=== PATIENT | female | born 1950 | race Caucasian/White ===

== ENCOUNTER 2017-03-03 06:41 | Emergency (ER) | payer OTHER ==
[2017-03-03 06:53] VITALS: BMI 23.3
--- NOTE | 2017-03-03 06:57 | DR.EXTPAIN ---
HPI - Nurses notes reviewed Nurses Notes Review: Yes - Source History Provided: Patient, EMS - Mode of arrival Mode of Arrival: Stretcher - Context History of: None - Associated signs and symptoms Associated Signs and Symptoms: Pain, Swelling <LIZ MADRID - Last Filed: 03/03/17 08:26> ROS - Review of Systems Constitutional: No Symptoms Reported Eyes: No Symptoms Reported ENTM: No Symptoms Reported Respiratoy: No Symptoms Reported Cardiovascular: No Symptoms Reported Gastrointestinal/Abdominal: No Symptoms Reported Genitourinary: No Symptoms Reported Neurological: No Symptoms Reported Musculoskeletal: Right, Ankle Integumentary: Bruises Hematologic/Lymphatic: No Symptoms Reported Endocrine: No Symptoms Reported All Other Systems: Reviewed and Negative <LIZ MADRID - Last Filed: 03/03/17 08:26> PE - General Limitations: No Limitations General Appearance: Alert - Head Head Exam: Normal Inspection - Eyes Eye exam: Normal Appearance - ENT ENT Exam: Normal External Ear Exam - Neck Neck Exam: Trachea Midline - Chest Chest Inspection: Symmetric Chest Wall Rise - Respiratory Respiratory Exam: Normal Lung Sounds Bilat Respiratory Exam: Bilateral Clear to Auscultation - Cardiovascular Cardiovascular Exam: Regular Rate, Normal Rhythm, Normal Heart Sounds - Abdominal Exam Abdominal Exam: Normal Bowel Sounds, Soft. negative: Tenderness - Extremities Extremities Exam: Tenderness (RIGHT ANKLE IS SWOLLEN, BRUISE AND TENDER. DECREASE ROM.) - Lower Extremities Ankle Exam: Tenderness, Swelling. negative: Full ROM (DECREASE) Neurovascular/Tendon Exam: Normal Capillary Refill - Back Back Exam: Normal Inspection - Neurological Neurological Exam: Alert, Oriented X3 - Psychiatric Psychiatric Exam: Normal Affect, Normal Mood - Skin Skin Exam: Erythema <LIZ MADRID - Last Filed: 03/03/17 08:26> - Vital Signs Vitals: Temperature 97.7 F Pulse Rate [Left Radial] 79 Pulse Rate 86 Respiratory Rate 20 Blood Pressure [Left Arm] 151/70 Blood Pressure 144/87 O2 Sat by Pulse Oximetry 100 MDM - Differential Diagnosis Differential Diagnosis: Contusion, Fracture, Sprain <LIZ MADRID - Last Filed: 03/03/17 08:26> Course - Treatment Treatment: SEE ORDERS. - Education/Counseling Education/Counseling: Patient, Education Educated On: Treatment, Diagnosis, Needs for Follow Up <LIZ MADRID - Last Filed: 03/03/17 08:26> - Consultation Called: 08:46 (Dr Michaud accepted for surgery need to get acceptance through ED- -Dr Lira accpeted for med surg) <VINICIUS BADILLO - Last Filed: 03/03/17 08:47> ROR - XRAY XRAY Interpreted by: Radiologist XRAY Findings: REPORT DISCUSS WITH PATIENT. <LIZ MADRID - Last Filed: 03/03/17 08:26> <LIZ MADRID - Last Filed: 03/03/17 08:26> <VINICIUS BADILLO - Last Filed: 03/03/17 08:47> - Discharge Plan Condition: Stable - Follow ups/Referrals Follow ups/Referrals: NFD,None [Primary Care Provider] - 3 days - Instructions
[2017-03-03] MEDS ORDERED: DILAUDID INJ ONE ×2 (07:27→09:16)
[2017-03-03] MEDS ORDERED: DILAUDID INJ IVP ONE ×2 (07:31→09:13)
--- NOTE | 2017-03-03 07:41 | RAD ---
HISTORY: Injury, fall, right ankle pain Study: Right ankle AP, lateral, mortise Comparison: None Findings: Fractures of the distal fibular shaft and medial malleolus are identified with subsequent lateral sub luxation of the talus at the tibiotalar joint. Associated soft tissue swelling is present. The talus, subtalar joint and calcaneus are intact. IMPRESSION: Bimalleolar fracture subluxation right ankle as described above Reported By:
[2017-03-03 08:36] VITALS: BP 151/70
== END 2017-03-03 10:08 | disposition home or self-care (01) ==
LOC: ER 06:41
DX: S82.841A Displaced bimalleolar fracture of right lower leg, initial encounter for closed fracture (principal); W10.9XXA Fall (on) (from) unspecified stairs and steps, initial encounter; Y92.9 Unspecified place or not applicable
CPT/HCPCS: 29515; 73610; 96365; 96374; 96375; 99284; 99285

== ENCOUNTER → 2017-08-31 | Outpatient (CLI) | payer OTHER ==
--- NOTE | 2017-08-31 10:24 | US ---
HISTORY: Right upper quadrant pain for 2 months. Nausea and vomiting. Study: Right upper quadrant ultrasound: Multiplanar ultrasonographic examination of the right upper abdominal quadrant was performed. Comparison: None Findings: The liver is of normal echogenicity, echotexture and size. Vascular flow was normal. The gallbladder shows no evidence of gallstones, pericholecystic fluid or gallbladder wall thickening . Per technologist's note there was a positive Mathew sign. The pancreas as visualized is normal. The inferior vena cava as visualized is normal. The right kidney measures 10.0 cm in length by 5.5 x 5.1 cm. No evidence of mass or hydronephrosis i s noted. IMPRESSION: 1. The technologist reports a positive Mathew sign. 2. Negative right upper quadrant ultrasound. Reported By:
== END ==
LOC: RAD 08:49
PROVIDERS: ATTEND Nurse Practitioner Family
DX: R10.11 Right upper quadrant pain (principal); K21.0 Gastro-esophageal reflux disease with esophagitis
CPT/HCPCS: 76705

== ENCOUNTER → 2017-09-12 | Outpatient (CLI) | payer OTHER ==
--- NOTE | 2017-09-12 13:15 | NM ---
HISTORY: Right upper quadrant pain, epigastric pain, lower abdominal pain. Study: Nuclear medicine HIDA scan with ejection fraction Comparison: None. Technique: Multiple scintigraphic images of the abdomen were obtained the intravenous administration of 5.4 mCi of technetium labeled Choletec. Following distention of the gallbladder with radiotracer, 8 oz of Ensure was administered orally. An estimated gallbladder ejection fraction was calculated based on the resulting physiologic response. Findings: Homogeneous uptake of radiotracer is seen throughout the liver. The intrabiliary ductal system is ob served normally. The common hepatic and common bile duct are unremarkable with normal biliary-bowel transit. The gallbladder is observed to fill normally. After administration of Ensure, a gallbladder ejection fraction of 34.9% (normal > 35%) is observed. IMPRESSION: 1. Normal hepatobiliary imaging scan. 2. Abnormal gallbladder ejection fraction of 34.9%. Clinical correlation for cholecystitis versus ga llbladder dyskinesia is recommended. Reported By:
== END ==
LOC: RAD 08:37
PROVIDERS: ATTEND Nurse Practitioner Family
DX: R10.11 Right upper quadrant pain (principal)
CPT/HCPCS: 78227; A9537

== ENCOUNTER 2019-06-05 14:35 | Inpatient (IN) ==
--- NOTE | 2019-06-05 15:05 | DR.DIZZY ---
HPI Time seen Time Seen by Provider: 06/05/19 14:55 PCP Primary Care Physician: lionel lopez HPI Comment HPI Comment: PATIENT IS 68YR OLD WHITE FEMALE IN ER WITH AMS AND GENERALIZED WEAKNESS. SHE FELL AT HOME. DID NOT HIT HER HEAD. PAIN LOWER BACK. NO DYSURIA. LOW GRADE FEVER AND COUGH AND CONGESTION. NOTED TO BE CONFUSE TODAY EVEN BEFORE FALLING. HISTORY PREVIOUS CVA AND RESIDUAL LEFT SIDED WEAKNESS. WHILE GOING TO [facility], SHE WAS MORE WEAK ON THE LEFT SIDE THAN USUAL. DENIES FEVER OR DYSURIAL. Complaint Chief Complaint Doctor Comments: GENERALIZED WEAKNESS AND DIZZINESS AND FELL. LOWER BACK PAIN. Chief Complaint:: pt fell because of possible dizziness. she was up in the restroom and finished that. was standing and called to family who witnessed pt staggering in restroom and she fell backwards landing on floor but did not strike her head Nurses Notes Reviewed Nurses Notes Review: Yes Source History Provided: Patient and EMS Mode of Arrival Mode of Arrival: EMS Timing Onset of Chief Complaint: 06/05/19 Came on: Suddenly Duration Duration: Constant (WEAKNESS IMPROVING.) Duration: Hours Location of Weakness Weakness Location: Generalized, Left and Sided Context Onset: With light exertion Does pt take pot. 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, Hysterectomy and Ortho Surgery Family History History of Family Medical Conditions: Yes Family Medical History: Cancer, MA, Coronary Artery Disease, Heart Failure and Hypertension Social History Does patient currently use any type of tobacco product: No Have you used tobacco products in the last 12 months: No Does any household member use tobacco: No Alcohol Use: None Do you use any recreational Drugs:: No Lives With: Family Lives Where: Home infectious screening In the last 2 months have you had wt loss of >10#?: NO Have you had fever, night sweats or hemotysis?: No Have you traveled outside the country in the last 6 months?: No Isolation: Standard ROS Review of Systems Constitutional: No Symptoms Reported and See HPI Eyes: No Symptoms Reported and See HPI ENTM: See HPI and Nose Congestion; negative Ear Pain, Nose Discharge and Throat Pain Respiratoy: No Symptoms Reported, See HPI and Short of Breath (ON EXERTION.); negative Wheezing Cardiovascular: No Symptoms Reported, See HPI and Edema; negative Chest Pain and Palpitations Gastrointestinal/Abdominal: No Symptoms Reported and See HPI; negative Abdominal Pain, Diarrhea and Vomiting Genitourinary: No Symptoms Reported and See HPI; negative Dysuria, Frequency and Hematuria Neurological: See HPI, Weakness and Dizziness; negative Headache Musculoskeletal: No Symptoms Reported, See HPI and Back Pain Integumentary: No Symptoms Reported and See HPI; negative Change in Color, Rash and Juandice Hematologic/Lymphatic: See HPI, Easy Bleeding and Easy Bruising; negative Swollen Glands Endocrine: See HPI and Decreased Appetite; negative Increased Thirst and Increased Urine Psychiatric: No Symptoms Reported and See HPI All Other Systems: Reviewed and Negative PE Vital Signs Vitals: Temperature 99.6 F Pulse Rate 87 Respiratory Rate 19 Blood Pressure [Left Arm] 162/88 Blood Pressure 117/56 O2 Sat by Pulse Oximetry 100 General Limitations: No Limitations General Appearance: Alert and In No Apparent Distress Head Head Exam: Normal Inspection and Atraumatic Eyes Eye exam: Normal Appearance ENT ENT Exam: Normal Exam, Normal Oropharynx and Normal External Ear Exam Neck Neck Exam: Normal Inspection and Full ROM Chest Chest Inspection: Normal Inspection Respiratory Respiratory Exam: Normal Lung Sounds Bilat Cardiovascular Cardiovascular Exam: Regular Rate and Normal Rhythm Abdominal Exam Abdominal Exam: Normal Inspection, Normal Bowel Sounds and Soft Rectal Rectal Exam: Deferred Extremeties Extremities Exam: Normal Inspection and Full ROM Back Back Exam: Normal Inspection and Full ROM Neurologic Neurological Exam: Alert and Oriented X3 Psychiatric Psychiatric Exam: Normal Affect and Normal Mood Skin Skin Exam: Warm, Dry, Intact and Normal Color COURSE Treatment Treatment: SEE ORDERS. PNEUMONIA PROTOCOL. Consultation Consultation Comments: DISCUSSED PATIENT WITH DR. LO. SHE WILL ADMIT PATIENT. Education/Counseling Education/Counseling: Patient and Family Educated On: Diagnosis ROR Labs Reviewed Laboratory Results Reviewed?: Yes Result Diagrams: 06/05/19 15:20 06/05/19 15:20 Laboratory: WBC 21.3 X10^3/uL (3.6-10.0) H 06/05/19 15:20 RBC 4.23 X10^6/uL (3.5-5.4) 06/05/19 15:20 Hgb 11.4 g/dL (12.0-16.0) L 06/05/19 15:20 Hct 35.4 % (36.0-47.0) L 06/05/19 15:20 MCV 83.7 fL (80.0-100.0) 06/05/19 15:20 MCH 26.9 pg (27.0-34.0) L 06/05/19 15:20 MCHC 32.1 g/dL (33.0-35.0) L 06/05/19 15:20 RDW 16.7 % (11.6-16.5) H 06/05/19 15:20 Plt Count 183 X10^3/uL (150.0-450.0) 06/05/19 15:20 Plt Count Comment Adequate (ADEQUATE) 06/05/19 15:20 MPV 9.2 fL (7.4-11.0) 06/05/19 15:20 Neut % (Auto) 92.3 % (42.0-75.0) H 06/05/19 15:20 Lymph % (Auto) 3.3 % (21.0-51.0) L 06/05/19 15:20 Jackson % (Auto) 3.9 % (0.0-13.0) 06/05/19 15:20 Eos % (Auto) 0.2 % (0.9-2.9) L 06/05/19 15:20 Baso % (Auto) 0.3 % (0.2-1.0) 06/05/19 15:20 Neut # (Auto) 19.7 x10^3/uL (2.2-4.8) H 06/05/19 15:20 Lymph # (Auto) 0.7 X10^3/uL (1.3-2.9) L 06/05/19 15:20 Jackson # (Auto) 0.8 x10^3/uL (0.3-0.8) 06/05/19 15:20 Eos # (Auto) 0.0 x10^3/uL (0.0-0.2) 06/05/19 15:20 Baso # (Auto) 0.1 X10^3/uL (0.0-0.1) 06/05/19 15:20 Absolute Nucleated RBC 0.0 /100WBC 06/05/19 15:20 Total Counted 100 06/05/19 15:20 Neutrophils % (Manual) 86 % (39-76) H 06/05/19 15:20 Band Neutrophils % 3 % (0-10) 06/05/19 15:20 Lymphocytes % (Manual) 8 % (13-43) L 06/05/19 15:20 Monocytes % (Manual) 2 % (4-9) L 06/05/19 15:20 Eosinophils % (Manual) 1 % (0-6) 06/05/19 15:20 Plt Morphology Comment Normal (NORMAL) 06/05/19 15:20 RBC Morphology Abnormal (NORMAL) A 06/05/19 15:20 Hypochromasia Slight A 06/05/19 15:20 Sodium 139 mmol/L (136-145) 06/05/19 15:20 Corrected Sodium TNP 06/05/19 15:20 Potassium 4.3 mmol/L (3.5-5.1) 06/05/19 15:20 Chloride 102 mmol/L (98-107) 06/05/19 15:20 Carbon Dioxide 32.6 mmol/L (21-32) H 06/05/19 15:20 BUN 11 mg/dL (7-18) 06/05/19 15:20 Creatinine 0.89 mg/dL (0.55-1.02) 06/05/19 15:20 Est GFR (MDRD) Af Amer > 60 (>60) 06/05/19 15:20 Est GFR (MDRD) Non-Af > 60 (>60) 06/05/19 15:20 Glucose 100 mg/dL (65-99) H 06/05/19 15:20 Lactic Acid 1.2 mmol/L (0.4-2.0) 06/05/19 18:17 Calcium 8.8 mg/dL (8.5-10.1) 06/05/19 15:20 Corrected Calcium 9.4 mg/dL (8.5-10.1) 06/05/19 15:20 Total Bilirubin 0.30 mg/dL (0.2-1.0) 06/05/19 15:20 AST 16 Units/L (15-37) 06/05/19 15:20 ALT 15 Units/L (12-78) 06/05/19 15:20 Alkaline Phosphatase 89 Units/L (46-116) 06/05/19 15:20 Creatine Kinase 90 Units/L (26-192) 06/05/19 15:20 CK-MB (CK-2) < 1.0 ng/mL (0-4.0) 06/05/19 15: CK/CKMB % Calc 1.1 % (<4) 06/05/19:20 Troponin I < 0.02 ng/mL (0-1.5) 06/05/19 15:20 Total Protein 6.8 g/dL (6.4-8.2) 06/05/19 15: Albumin 3.2 g/dL (3.4-5.0) L 06/05/19 15:20 Globulin 3.6 g/dL (2.5-4.5) 06/05/19 15:20 Albumin/Globulin Ratio 0.9 Ratio (1.1-2.1) L 06/05/19 15:20 Specimen Type Clean catch urine 06/05/19 18:04 Urine Color Pale yellow (YELLOW) 06/05/19 18:04 Urine Appearance Clear (CLEAR) 06/05/19 18:04 Urine pH 7.0 (5.0 - 8.0) 06/05/19 18:04 Ur Specific Romney 1.005 (1.000-1.030) 06/05/19 18:04 Urine Protein 1+ (NEGATIVE) 06/05/19 18:04 Urine Glucose (UA) Negative (NEGATIVE) 06/05/19 18:04 Urine Ketones Negative (NEGATIVE) 06/05/19 18:04 Urine Occult Blood Negative (NEGATIVE) 06/05/19 18:04 Urine Nitrite Negative (NEGATIVE) 06/05/19 18:04 Urine Bilirubin Negative (NEGATIVE) 06/05/19 18:04 Urine Urobilinogen Normal (NORMAL) 06/05/19 18:04 Ur Leukocyte Esterase Negative (NEGATIVE) 06/05/19 18:04 Urine RBC None seen /HPF (0-3) 06/05/19 18:04 Urine WBC 0-2 /HPF (0-5) 06/05/19 18:04 Ur Squamous Epith Cells Rare /HPF (NEGATIVE) 06/05/19 18:04 Ur Renal Epithelial Cell Rare /HPF (NEGATIVE) 06/05/19 18:04 Amorphous Sediment Trace /HPF (NEGATIVE) 06/05/19 18:04 Urine Bacteria Negative /HPF (NEGATIVE) 06/05/19 18:04 Ur Culture Indicated? No/not indicated 06/05/19 18:04 Opioid Opioid Risk Tool Age (Marquze box if 16-45): No History of Preadolescent Sexual Abuse: No Total: 0 Total Score Risk Category: Low Risk Copyright: [facility] predicting aberrant behaviors Diagnosis Discharge Problem: Weakness generalized, Left-sided weakness Pneumonia Qualifiers: Pneumonia type: due to unspecified organism Laterality: bilateral Lung location: lower lobe of lung Qualified Code(s): J18.9 - Pneumonia, unspecified organism AMS (altered mental status) Qualifiers: Altered mental status type: transient alteration of awareness Qualified Code(s): R40.4 - Transient alteration of awareness Lower back pain Qualifiers: Chronicity: acute Back pain laterality: bilateral Sciatica presence: without sciatica Qualified Code(s): M54.5 - Low back pain Instructions Forms: Excuse From Work Patient Portal
[2019-06-05 15:36] LABS: BASOPHILS # (AUTO) 0.1 X10^3/uL (0.0-0.1); BASOPHILS % (AUTO) 0.3 % (0.2-1.0); EOSINOPHILS % (AUTO) 0.2 % (0.9-2.9); HEMATOCRIT 35.4 % (36.0-47.0); HEMOGLOBIN 11.4 g/dL (12.0-16.0); LYMPHOCYTES # (AUTO) 0.7 X10^3/uL (1.3-2.9); LYMPHOCYTES % (AUTO) 3.3 % (21.0-51.0); MEAN CORPUSCULAR HEMOGLOBIN 26.9 pg (27.0-34.0); MEAN CORPUSCULAR HGB CONC 32.1 g/dL (33.0-35.0); MEAN CORPUSCULAR VOLUME 83.7 fL (80.0-100.0); MEAN PLATELET VOLUME 9.2 fL (7.4-11.0); MONOCYTES # (AUTO) 0.8 x10^3/uL (0.3-0.8); MONOCYTES % (AUTO) 3.9 % (0.0-13.0); NEUTROPHILS # (AUTO) 19.7 x10^3/uL (2.2-4.8); NEUTROPHILS % (AUTO) 92.3 % (42.0-75.0); PLATELET COUNT 183 X10^3/uL (150.0-450.0); RED BLOOD COUNT 4.23 X10^6/uL (3.5-5.4); RED CELL DISTRIBUTION WIDTH 16.7 % (11.6-16.5); WHITE BLOOD COUNT 21.3 X10^3/uL (3.6-10.0)
[2019-06-05 15:44] LABS: BAND NEUTROPHILS % 3 % (0-10)
[2019-06-05 15:45] LABS: PLATELET MORPHOLOGY COMMENT NORMAL (NORMAL)
[2019-06-05 15:47] LABS: HYPOCHROMASIA SLIGHT
--- NOTE | 2019-06-05 15:47 | CT ---
BRAIN W/O CONCLINICAL INDICATION: SYNCOPAL EPISODE, AMSTECHNIQUE: Images were obtained through the head per standard CT protocol. Multiplanar reformatted images were generated from the CT dataset. Dose reduction techniques including Automated Exposure Control (AEC) and adjustment of mA and kV were utlized.COMPARISON:January 10, 2018FINDINGS:Diffuse patchy and confluent periventricular and subcortical hypoattenuation with associated volume loss. Chronic lacunar infarcts in the posterior limb of the right internal capsule and left caudate. There is no evidence of acute infarction, intracranial hemorrhage, mass or mass effect, or abnormal extra-axial collection . The density of the larger dural venous sinuses is normal . Age-related, ex-vacuo dilatation of the ventricles and sulci . The skull base and calvarium are normal .The included paranasal sinuses and mastoid air cells are predominantly clear .IMPRESSION:1. No acute intracranial abnormality. Chronic microangiopathic changes and ex vacuo dilatation of the ventricles and sulci.Electronically signed by: LEEANNA NICOLE (Jun 05, 2019 15:45:53)
--- NOTE | 2019-06-05 15:48 | RAD ---
HISTORYSYNCOPAL EPISODE, AMSSTUDYCHEST, 1 VIEWCOMPARISONNoneFINDINGSThe heart is normal. The pulmonary vessels are normal. There is hazy opacity along the lung bases and right upper lobe. No effusion is seen. There is overlying EKG lead artifact. There is a loop recorder device along the left lower chest. No effusion is seen.IMPRESSIONHazy bibasilar and right upper lobe infiltrates which could represent early multisegment bronchopneumonia. Recommend short-term follow-up.Electronically signed by: GENE VIRGEN (Jun 05, 2019 15:47:39)
[2019-06-05 15:51] LABS: BLOOD UREA NITROGEN 11 mg/dL (7-18); CALCIUM 8.8 mg/dL (8.5-10.1); CARBON DIOXIDE 32.6 mmol/L (21-32); CHLORIDE 102 mmol/L (98-107); CREATININE 0.89 mg/dL (0.55-1.02); SODIUM 139 mmol/L (136-145); TROPONIN I < 0.02 ng/mL (0-1.5); eGFR NON BLACK RACES > 60 (>60)
[2019-06-05 15:56] LABS: ALANINE AMINOTRANSFERASE 15 Units/L (12-78); ALBUMIN 3.2 g/dL (3.4-5.0); ALKALINE PHOSPHATASE 89 Units/L (46-116); ASPARTATE AMINO TRANSFERASE 16 Units/L (15-37); CKMB % 1.1 % (<4); COR CA(FOR HYPOALB) 9.4 mg/dL (8.5-10.1); CREATINE KINASE 90 Units/L (26-192); CREATINE KINASE MB < 1.0 ng/mL (0-4.0); TOTAL PROTEIN 6.8 g/dL (6.4-8.2)
[2019-06-05] MEDS ORDERED: ROCEPHIN VIAL 1 GRAM 1 G in NS 100 ML IV + SPIKE MINIBAG* 100 ML IV ONE (17:54)
[2019-06-05] MEDS ORDERED: NS 100 ML IV 100 ML IV ONE (17:57)
[2019-06-05] MEDS ORDERED: ROCEPHIN VIAL 1 GRAM ONE (17:57)
[2019-06-05] MEDS ORDERED: NS 1/2 1000 ML IV 1,000 ML IV ONE (17:57)
[2019-06-05] MEDS ORDERED: NS 1/2 1000 ML IV 1,000 ML IV SCH (18:00)
[2019-06-05] MEDS ORDERED: SALINE 3% 15 ML NEB TX NEB ONE (18:13)
[2019-06-05] MEDS ORDERED: SALINE 3% 15 ML NEB TX ONE (18:15)
[2019-06-05 18:44] LABS: APPEARANCE,URINE CLEAR (CLEAR); BACTERIA,URINE NEGATIVE /HPF (NEGATIVE); BILIRUBIN,URINE NEGATIVE (NEGATIVE); BLOOD/HEMOGLOBIN,URINE NEGATIVE (NEGATIVE); COLOR,URINE PALE YELLOW (YELLOW); GLUCOSE, URINE NEGATIVE (NEGATIVE); KETONES,URINE NEGATIVE (NEGATIVE); LEUKOCYTE ESTERASE ,URINE NEGATIVE (NEGATIVE); NITRITES,URINE NEGATIVE (NEGATIVE); PROTEIN,URINE 1+ (NEGATIVE); RBC,URINE NONE SEEN /HPF (0-3); RENAL EPITHELIAL CELLS,URINE RARE /HPF (NEGATIVE); SQUAMOUS EPITHELIAL CELL,UR RARE /HPF (NEGATIVE); UROBILINOGEN,URINE NORMAL (NORMAL)
[2019-06-05 18:45] LABS: AMORPHOUS SEDIMENT,UR TRACE /HPF (NEGATIVE)
[2019-06-05] MEDS ORDERED: TUSSIONEX PENNKINETIC SUSP PO PRN (19:50)
[2019-06-05] MEDS: DUONEB 0.5 MG/3 MG (3 mL) NEB SCH (21:15)
[2019-06-05] MEDS: NEURONTIN CAP 400 MG PO SCH (21:54)
[2019-06-05] MEDS: ROBITUSSIN DM PO SCH (21:55)
[2019-06-05] MEDS: VIBRAMYCIN 100 MG in NS 100 ML IV + SPIKE MINIBAG* 100 ML IV SCH ×2 (22:00→22:15)
[2019-06-05] MEDS ORDERED: NORCO 5/325 MG TAB PO ONE (23:26)
[2019-06-06 02:00] VITALS: BMI 27.1
[2019-06-06] MEDS ORDERED: AFLURIA II4 or FLUARIX II4 IM ONE (02:00)
[2019-06-06 05:30] LABS: BASOPHILS # (AUTO) 0.1 X10^3/uL (0.0-0.1); BASOPHILS % (AUTO) 0.5 % (0.2-1.0); EOSINOPHILS % (AUTO) 0.3 % (0.9-2.9); HEMATOCRIT 30.9 % (36.0-47.0); HEMOGLOBIN 10.1 g/dL (12.0-16.0); LYMPHOCYTES # (AUTO) 1.7 X10^3/uL (1.3-2.9); LYMPHOCYTES % (AUTO) 10.3 % (21.0-51.0); MEAN CORPUSCULAR HEMOGLOBIN 27.2 pg (27.0-34.0); MEAN CORPUSCULAR HGB CONC 32.8 g/dL (33.0-35.0); MEAN PLATELET VOLUME 9.1 fL (7.4-11.0); MONOCYTES # (AUTO) 0.9 x10^3/uL (0.3-0.8); MONOCYTES % (AUTO) 5.4 % (0.0-13.0); NEUTROPHILS # (AUTO) 14.2 x10^3/uL (2.2-4.8); NEUTROPHILS % (AUTO) 83.5 % (42.0-75.0); PLATELET COUNT 178 X10^3/uL (150.0-450.0); RED BLOOD COUNT 3.72 X10^6/uL (3.5-5.4); RED CELL DISTRIBUTION WIDTH 16.3 % (11.6-16.5); WHITE BLOOD COUNT 16.9 X10^3/uL (3.6-10.0)
[2019-06-06 05:54] LABS: ALANINE AMINOTRANSFERASE 14 Units/L (12-78); ALBUMIN 2.7 g/dL (3.4-5.0); ALKALINE PHOSPHATASE 75 Units/L (46-116); ASPARTATE AMINO TRANSFERASE 13 Units/L (15-37); BLOOD UREA NITROGEN 9 mg/dL (7-18); CALCIUM 8.3 mg/dL (8.5-10.1); CARBON DIOXIDE 29.8 mmol/L (21-32); CHLORIDE 105 mmol/L (98-107); COR CA(FOR HYPOALB) 9.3 mg/dL (8.5-10.1); CREATININE 0.66 mg/dL (0.55-1.02); SODIUM 143 mmol/L (136-145); TOTAL PROTEIN 6.1 g/dL (6.4-8.2); eGFR NON BLACK RACES > 60 (>60)
[2019-06-06] MEDS: DUONEB 0.5 MG/3 MG (3 mL) NEB SCH ×4 (08:59→21:30)
--- NOTE | 2019-06-06 09:02 | DR.H&P ---
H&P History & Physical for Day of: H&P Date: 06/06/19 Chief Complaint Chief Complaint: syncope, weakness Allergies Allergies Allergy/AdvReac Type Severity Reaction Status Date / Time Sulfa (Sulfonamide Allergy Verified 06/05/19 14:48 Antibiotics) [SULFA] History of Present Illness History of Present Illness: Ms. Umanzor is a 68y/o female with a PMH of CVA with left sided weakness, atrial fibrillation s/p ablation and HTN presented after having a syncopal episode at home. She states she was walking to the bathroom and passed out. She denies feeling sick prior to the episode. She states she felt dizzy, weak and fell. She has a hx of dizzy spells, currently seeing Neurology in [place] and was suppose to have an EEG. She was also confused on admission. Patient denies fever, cough or any URI symptoms. She reports chills. She also states she has had 2 admissions for pneumonia and she never really has respiratory symptoms. ED work-up: CT-head: old lacunar infarct, no acute changes. CXR: RUL bronchopneumonia Labs: elevated WBC 21.3, normal lactic acid, normal cardiac enzymes Past Medical History Past Medical History: Anxiety, Arthritis, CVA, Depression, Hypertension and Hypothyroidism Past Surgical History Surgical History: Appendectomy and Hysterectomy Family History Family Medical History: Cancer, ID, Coronary Artery Disease, Heart Failure and Hypertension Social History Does patient currently use any type of tobacco product: No Have you used tobacco products in the last 12 months: No Type of Tobacco Use: None How many years tobacco product used: 37 Does any household member use tobacco: No Alcohol Use: None Drug Use: None Prescription drug monitoring program results: PDMP was not reviewed Medications Home Medications: Sulfa (Sulfonamide Antibiotics) [SULFA] Allergy (Verified 06/05/19 14:48) CONTINUE taking the following medications apixaban [Eliquis] 5 mg PO DAILY 06/05/19 [History] atorvastatin 80 mg PO HS 06/05/19 [History] desloratadine 5 mg PO DAILY 06/05/19 [History] gabapentin 800 mg PO HS 06/05/19 [History] montelukast 10 mg PO DAILY 06/05/19 [History] omeprazole 40 mg PO DAILY 06/05/19 [History] pantoprazole 40 mg PO DAILY 06/05/19 [History] ranitidine HCl 150 mg PO BID 06/05/19 [History] Labs Result Diagrams: 06/06/19 04:28 06/06/19 04:28 Labs: Laboratory WBC 16.9 X10^3/uL (3.6-10.0) H 06/06/19 04:28 RBC 3.72 X10^6/uL (3.5-5.4) 06/06/19 04:28 Hgb 10.1 g/dL (12.0-16.0) L 06/06/19 04:28 Hct 30.9 % (36.0-47.0) L 06/06/19 04:28 MCV 83.0 fL (80.0-100.0) 06/06/19 04:28 MCH 27.2 pg (27.0-34.0) 06/06/19 04:28 MCHC 32.8 g/dL (33.0-35.0) L 06/06/19 04:28 RDW 16.3 % (11.6-16.5) 06/06/19 04:28 Plt Count 178 X10^3/uL (150.0-450.0) 06/06/19 04:28 Plt Count Comment Adequate (ADEQUATE) 06/05/19 15:20 MPV 9.1 fL (7.4-11.0) 06/06/19 04:28 Neut % (Auto) 83.5 % (42.0-75.0) H 06/06/19 04:28 Lymph % (Auto) 10.3 % (21.0-51.0) L 06/06/19 04:28 [place] % (Auto) 5.4 % (0.0-13.0) 06/06/19 04:28 Eos % (Auto) 0.3 % (0.9-2.9) L 06/06/19 04:28 Baso % (Auto) 0.5 % (0.2-1.0) 06/06/19 04:28 Neut # (Auto) 14.2 x10^3/uL (2.2-4.8) H 06/06/19 04:28 Lymph # (Auto) 1.7 X10^3/uL (1.3-2.9) 06/06/19 04:28 [place] # (Auto) 0.9 x10^3/uL (0.3-0.8) H 06/06/19 04:28 Eos # (Auto) 0.0 x10^3/uL (0.0-0.2) 06/06/19 04:28 Baso # (Auto) 0.1 X10^3/uL (0.0-0.1) 06/06/19 04:28 Absolute Nucleated RBC 0.0 /100WBC 06/06/19 04:28 Total Counted 100 06/05/19 15:20 Neutrophils % (Manual) 86 % (39-76) H 06/05/19 15:20 Band Neutrophils % 3 % (0-10) 06/05/19 15:20 Lymphocytes % (Manual) 8 % (13-43) L 06/05/19 15:20 Monocytes % (Manual) 2 % (4-9) L 06/05/19 15:20 Eosinophils % (Manual) 1 % (0-6) 06/05/19 15:20 Plt Morphology Comment Normal (NORMAL) 06/05/19 15:20 RBC Morphology Abnormal (NORMAL) A 06/05/19 15:20 Hypochromasia Slight A 06/05/19 15:20 Sodium 143 mmol/L (136-145) 06/06/19 04:28 Corrected Sodium TNP 06/06/19 04:28 Potassium 3.5 mmol/L (3.5-5.1) 06/06/19 04:28 Chloride 105 mmol/L (98-107) 06/06/19 04:28 Carbon Dioxide 29.8 mmol/L (21-32) 06/06/19 04:28 BUN 9 mg/dL (7-18) 06/06/19 04:28 Creatinine 0.66 mg/dL (0.55-1.02) 06/06/19 04:28 Est GFR (MDRD) Af Amer > 60 (>60) 06/06/19 04:28 Est GFR (MDRD) Non-Af > 60 (>60) 06/06/19 04:28 Glucose 86 mg/dL (65-99) 06/06/19 04:28 Lactic Acid 1.2 mmol/L (0.4-2.0) 06/05/19 18:17 Calcium 8.3 mg/dL (8.5-10.1) L 06/06/19 04:28 Corrected Calcium 9.3 mg/dL (8.5-10.1) 06/06/19 04:28 Total Bilirubin 0.30 mg/dL (0.2-1.0) 06/06/19 04:28 AST 13 Units/L (15-37) L 06/06/19 04:28 ALT 14 Units/L (12-78) 06/06/19 04:28 Alkaline Phosphatase 75 Units/L (46-116) 06/06/19 04:28 Creatine Kinase 90 Units/L (26-192) 06/05/19 15:20 CK-MB (CK-2) < 1.0 ng/mL (0-4.0) 06/05/19 15: CK/CKMB % Calc 1.1 % (<4) 06/05/19 15: Troponin I < 0.02 ng/mL (0-1.5) 06/05/19 15:20 Total Protein 6.1 g/dL (6.4-8.2) L 06/06/19 04:28 Albumin 2.7 g/dL (3.4-5.0) L 06/06/19 04:28 Globulin 3.4 g/dL (2.5-4.5) 06/06/19 04:28 Albumin/Globulin Ratio 0.8 Ratio (1.1-2.1) L 06/06/19 04:28 Specimen Type Clean catch urine 06/05/19 18:04 Urine Color Pale yellow (YELLOW) 06/05/19 18:04 Urine Appearance Clear (CLEAR) 06/05/19 18:04 Urine pH 7.0 (5.0 - 8.0) 06/05/19 18:04 Ur Specific [place] 1.005 (1.000-1.030) 06/05/19 18:04 Urine Protein 1+ (NEGATIVE) 06/05/19 18:04 Urine Glucose (UA) Negative (NEGATIVE) 06/05/19 18:04 Urine Ketones Negative (NEGATIVE) 06/05/19 18:04 Urine Occult Blood Negative (NEGATIVE) 06/05/19 18:04 Urine Nitrite Negative (NEGATIVE) 06/05/19 18:04 Urine Bilirubin Negative (NEGATIVE) 06/05/19 18:04 Urine Urobilinogen Normal (NORMAL) 06/05/19 18:04 Ur Leukocyte Esterase Negative (NEGATIVE) 06/05/19 18:04 Urine RBC None seen /HPF (0-3) 06/05/19 18:04 Urine WBC 0-2 /HPF (0-5) 06/05/19 18:04 Ur Squamous Epith Cells Rare /HPF (NEGATIVE) 06/05/19 18:04 Ur Renal Epithelial Cell Rare /HPF (NEGATIVE) 06/05/19 18:04 Amorphous Sediment Trace /HPF (NEGATIVE) 06/05/19 18:04 Urine Bacteria Negative /HPF (NEGATIVE) 06/05/19 18:04 Ur Culture Indicated? No/not indicated 06/05/19 18:04 Review of Systems Constitutional: Chills and Weakness Eyes: No Symptoms Reported ENT: No Symptoms Reported Respiratory: No Symptoms Reported Cardiovascular: [place] Gastrointestinal: No Symptoms Reported Genitourinary: No Symptoms Reported Musculoskeletal: No Symptoms Reported Skin: No Symptoms Reported Neurological: Weakness and Confusion Physical Exam Vital Signs: Temperature 98.9 F Pulse Rate [Right Brachial] 78 Pulse Rate 84 Respiratory Rate 14 Blood Pressure [Left Arm] 109/53 Blood Pressure 117/56 O2 Sat by Pulse Oximetry 98 Oriented: Normal Respiratory: Clear Throughout Cardiovascular: Normal; negative Edema Auscultation: Bowel Sounds: Normal Palpation: Normal Tenderness: Normal Skin: Normal Musculoskeletal: Left and Arm (slight left side weakness compared to the right ) Psychiatric: Normal Mood Description: Calm Affect: Normal Speech Pattern: Clear and Appropriate Assessment/Plan (1) Pneumonia: Qualifiers: Laterality: bilateral Lung location: lower lobe of lung Pneumonia type: due to unspecified organism Qualified Code(s): J18.9 - Pneumonia, unspecified organism Status: Acute Plan: CXR: RUL bronchopneumonia Continue oxygen prn to keep sats > 92%, duonebs, IS Continue IV Rocephin and doxycycline, WBC trending down Follow sputum and blood cultures Continue gentle hydration (2) AMS (altered mental status): Qualifiers: Altered mental status type: transient alteration of awareness Qualified Code(s): R40.4 - Transient alteration of awareness Status: Acute Plan: Resolved, CT head negative for acute changes (3) Weakness generalized: Status: Acute Plan: Due to underlying infection, hypotension Hx of CVA with chronic left sided weakness (4) CVA (cerebral vascular accident): Qualifiers: CVA mechanism: unspecified Qualified Code(s): I63.9 - Cerebral infarction, unspecified Status: Acute Plan: CT head negative for acute changes, old left sided weakness. (5) Atrial fibrillation: Qualifiers: Atrial fibrillation type: unspecified Qualified Code(s): I48.91 - Unspecified atrial fibrillation Status: Acute Plan: s/p ablation, resume home medications: eliquis (6) Hypotension: Qualifiers: Hypotension type: hypotension due to hypovolemia Qualified Code(s): I95.89 - Other hypotension; E86.1 - Hypovolemia Status: Acute Plan: continue gentle hydration (7) Syncope: Qualifiers: Syncope type: unspecified Qualified Code(s): R55 - Syncope and collapse Status: Acute Plan: Hx of dizzy spells, currently seeing Neurology in [place]. Patient states she is suppose to have EEG. Could also be related to hypotension and infection. Continue to monitor on tele. Review H&P Reviewed: Yes Patient was examined?: Yes
[2019-06-06] MEDS ORDERED: NS 1/2 1000 ML IV 1,000 ML IV ONE (09:39)
[2019-06-06] MEDS: SINGULAIR TAB 10 MG PO SCH (10:18)
[2019-06-06] MEDS: VSL#3 PO SCH (10:18)
[2019-06-06] MEDS: ELIQUIS PO SCH (10:18)
[2019-06-06] MEDS: PROzac PO SCH (10:18)
[2019-06-06] MEDS: ROBITUSSIN DM PO SCH ×4 (10:19→21:16)
[2019-06-06] MEDS: CLARITIN PO SCH (10:19)
[2019-06-06] MEDS: ROCEPHIN VIAL 1 GRAM 1 G in NS 100 ML IV + SPIKE MINIBAG* 100 ML IV SCH (10:19)
[2019-06-06] MEDS: PriLOSEC PO SCH (10:22)
[2019-06-06] MEDS: NS 1/2 1000 ML IV 1,000 ML IV SCH ×3 (10:23→10:28)
[2019-06-06] MEDS: PROTONIX TAB 40 MG PO SCH (10:23)
[2019-06-06] MEDS: VIBRAMYCIN 100 MG in NS 100 ML IV + SPIKE MINIBAG* 100 ML IV SCH ×2 (11:21→21:24)
[2019-06-06] MEDS: LIORESAL PO PRN (16:21)
[2019-06-06] MEDS: LIPITOR TAB 40 MG PO SCH (21:16)
[2019-06-06] MEDS: NEURONTIN CAP 400 MG PO SCH (21:16)
[2019-06-06] MEDS ORDERED: NORCO 5/325 MG TAB PO ONE (23:00)
[2019-06-07] MEDS ORDERED: NS 1/2 1000 ML IV 1,000 ML IV ONE (02:21)
[2019-06-07] MEDS: NS 1/2 1000 ML IV 1,000 ML IV SCH (02:30)
[2019-06-07 05:32] LABS: BASOPHILS # (AUTO) 0.1 X10^3/uL (0.0-0.1); BASOPHILS % (AUTO) 0.6 % (0.2-1.0); EOSINOPHILS # (AUTO) 0.1 x10^3/uL (0.0-0.2); EOSINOPHILS % (AUTO) 1.4 % (0.9-2.9); HEMATOCRIT 28.7 % (36.0-47.0); HEMOGLOBIN 9.5 g/dL (12.0-16.0); LYMPHOCYTES # (AUTO) 1.6 X10^3/uL (1.3-2.9); LYMPHOCYTES % (AUTO) 15.3 % (21.0-51.0); MEAN CORPUSCULAR HEMOGLOBIN 27.9 pg (27.0-34.0); MEAN CORPUSCULAR VOLUME 84.7 fL (80.0-100.0); MEAN PLATELET VOLUME 9.7 fL (7.4-11.0); MONOCYTES # (AUTO) 0.8 x10^3/uL (0.3-0.8); MONOCYTES % (AUTO) 8.1 % (0.0-13.0); NEUTROPHILS # (AUTO) 7.7 x10^3/uL (2.2-4.8); NEUTROPHILS % (AUTO) 74.6 % (42.0-75.0); PLATELET COUNT 155 X10^3/uL (150.0-450.0); RED BLOOD COUNT 3.39 X10^6/uL (3.5-5.4); RED CELL DISTRIBUTION WIDTH 16.4 % (11.6-16.5); WHITE BLOOD COUNT 10.4 X10^3/uL (3.6-10.0)
[2019-06-07 05:50] LABS: BLOOD UREA NITROGEN 8 mg/dL (7-18); CALCIUM 8.2 mg/dL (8.5-10.1); CARBON DIOXIDE 31.1 mmol/L (21-32); CHLORIDE 108 mmol/L (98-107); CREATININE 0.65 mg/dL (0.55-1.02); MAGNESIUM 1.7 mg/dL (1.7-2.9); SODIUM 143 mmol/L (136-145); eGFR NON BLACK RACES > 60 (>60)
[2019-06-07] MEDS: DUONEB 0.5 MG/3 MG (3 mL) NEB SCH ×4 (08:59→20:45)
[2019-06-07] MEDS ORDERED: AFLURIA II4 or FLUARIX II4 IM ONE (09:00)
--- NOTE | 2019-06-07 09:07 | PCM.PROG ---
Progress Note Progress Note for Day of Date of Exam: 06/07/19 Subjective Subjective: No acute events overnight, patient seen at bedside. She reports doing better. She is currently on 2L NC and does get short of breath with ambulation. She has dry cough. She reports appetite is still not that good. She denies fever or chills. Will ask RT to evaluate patient for oxygen at rest and with ambulation, will DC IVF and monitor blood pressure. Continue IV antibiotics, follow cultures. WBC trending down. If patient doing well tomorrow then possible discharge home. Past Medical Family Social History Past Med/Fam/Surg Hx: No changes since H&P Allergies: Allergies Sulfa (Sulfonamide Antibiotics) [SULFA] Allergy (Verified 06/05/19 14:48) Review of Systems ROS: No change since H&P Vital Signs and I&O's Vital Signs: Temperature 97.9 F Pulse Rate [Right Brachial] 77 Pulse Rate 77 Respiratory Rate 17 Blood Pressure [Left Arm] 103/53 Blood Pressure 117/56 O2 Sat by Pulse Oximetry 98 Intake and Output: Intake & Output 06/04/19 06/05/19 06/06/19 06/07/19 23:59 23:59 23:59 23:59 Intake Total 240 / 240 3811 / 3811 869 / 869 Output Total / Balance 238 / 238 3804 / 3804 868 / 868 Physical Exam Oriented: Normal Respiratory: Normal Cardiovascular: Normal; negative Edema Auscultation: Bowel Sounds: Normal Tenderness: Normal Skin: Normal Musculoskeletal: Left and Arm (slight left side weakness compared to the right ) Psychiatric: Normal Mood Description: Calm Affect: Normal Speech Pattern: Clear and Appropriate Laboratory and Diagnostics Result Diagrams: 06/07/19 04:36 06/07/19 04:36 Labs: 06/06/19 11:40 Sputum - Expectorated Sputum - Final Laboratory WBC 10.4 X10^3/uL (3.6-10.0) H 06/07/19 04:36 RBC 3.39 X10^6/uL (3.5-5.4) L 06/07/19 04:36 Hgb 9.5 g/dL (12.0-16.0) L 06/07/19 04:36 Hct 28.7 % (36.0-47.0) L 06/07/19 04:36 MCV 84.7 fL (80.0-100.0) 06/07/19 04:36 MCH 27.9 pg (27.0-34.0) 06/07/19 04:36 MCHC 33.0 g/dL (33.0-35.0) 06/07/19 04:36 RDW 16.4 % (11.6-16.5) 06/07/19 04:36 Plt Count 155 X10^3/uL (150.0-450.0) 06/07/19 04:36 Plt Count Comment Adequate (ADEQUATE) 06/05/19 15:20 MPV 9.7 fL (7.4-11.0) 06/07/19 04:36 Neut % (Auto) 74.6 % (42.0-75.0) 06/07/19 04:36 Lymph % (Auto) 15.3 % (21.0-51.0) L 06/07/19 04:36 [place] % (Auto) 8.1 % (0.0-13.0) 06/07/19 04:36 Eos % (Auto) 1.4 % (0.9-2.9) 06/07/19 04:36 Baso % (Auto) 0.6 % (0.2-1.0) 06/07/19 04:36 Neut # (Auto) 7.7 x10^3/uL (2.2-4.8) H 06/07/19 04:36 Lymph # (Auto) 1.6 X10^3/uL (1.3-2.9) 06/07/19 04:36 [place] # (Auto) 0.8 x10^3/uL (0.3-0.8) 06/07/19 04:36 Eos # (Auto) 0.1 x10^3/uL (0.0-0.2) 06/07/19 04:36 Baso # (Auto) 0.1 X10^3/uL (0.0-0.1) 06/07/19 04:36 Absolute Nucleated RBC 0.0 /100WBC 06/07/19 04:36 Total Counted 100 06/05/19 15:20 Neutrophils % (Manual) 86 % (39-76) H 06/05/19 15:20 Band Neutrophils % 3 % (0-10) 06/05/19 15:20 Lymphocytes % (Manual) 8 % (13-43) L 06/05/19 15:20 Monocytes % (Manual) 2 % (4-9) L 06/05/19 15:20 Eosinophils % (Manual) 1 % (0-6) 06/05/19 15:20 Plt Morphology Comment Normal (NORMAL) 06/05/19 15:20 RBC Morphology Abnormal (NORMAL) A 06/05/19 15:20 Hypochromasia Slight A 06/05/19 15:20 Sodium 143 mmol/L (136-145) 06/07/19 04:36 Corrected Sodium TNP 06/07/19 04:36 Potassium 3.7 mmol/L (3.5-5.1) 06/07/19 04:36 Chloride 108 mmol/L (98-107) H 06/07/19 04:36 Carbon Dioxide 31.1 mmol/L (21-32) 06/07/19 04:36 BUN 8 mg/dL (7-18) 06/07/19 04:36 Creatinine 0.65 mg/dL (0.55-1.02) 06/07/19 04:36 Est GFR (MDRD) Af Amer > 60 (>60) 06/07/19 04:36 Est GFR (MDRD) Non-Af > 60 (>60) 06/07/19 04:36 Glucose 104 mg/dL (65-99) H 06/07/19 04:36 Lactic Acid 1.2 mmol/L (0.4-2.0) 06/05/19 18:17 Calcium 8.2 mg/dL (8.5-10.1) L 06/07/19 04:36 Corrected Calcium 9.3 mg/dL (8.5-10.1) 06/06/19 04:28 Magnesium 1.7 mg/dL (1.7-2.9) 06/07/19 04:36 Total Bilirubin 0.30 mg/dL (0.2-1.0) 06/06/19 04:28 AST 13 Units/L (15-37) L 06/06/19 04:28 ALT 14 Units/L (12-78) 06/06/19 04:28 Alkaline Phosphatase 75 Units/L (46-116) 06/06/19 04:28 Creatine Kinase 90 Units/L (26-192) 06/05/19 15:20 CK-MB (CK-2) < 1.0 ng/mL (0-4.0) 06/05/19 15: CK/CKMB % Calc 1.1 % (<4) 06/05/19 15: Troponin I < 0.02 ng/mL (0-1.5) 06/05/19 15: Total Protein 6.1 g/dL (6.4-8.2) L 06/06/19 04:28 Albumin 2.7 g/dL (3.4-5.0) L 06/06/19 04:28 Globulin 3.4 g/dL (2.5-4.5) 06/06/19 04:28 Albumin/Globulin Ratio 0.8 Ratio (1.1-2.1) L 06/06/19 04:28 Specimen Type Clean catch urine 06/05/19 18:04 Urine Color Pale yellow (YELLOW) 06/05/19 18: Urine Appearance Clear (CLEAR) 06/05/19 18: Urine pH 7.0 (5.0 - 8.0) 06/05/19 18:04 Ur Specific [place] 1.005 (1.000-1.030) 06/05/19 18:04 Urine Protein 1+ (NEGATIVE) 06/05/19 18:04 Urine Glucose (UA) Negative (NEGATIVE) 06/05/19 18:04 Urine Ketones Negative (NEGATIVE) 06/05/19 18:04 Urine Occult Blood Negative (NEGATIVE) 06/05/19 18: Urine Nitrite Negative (NEGATIVE) 06/05/19 18:04 Urine Bilirubin Negative (NEGATIVE) 06/05/19 18:04 Urine Urobilinogen Normal (NORMAL) 06/05/19 18:04 Ur Leukocyte Esterase Negative (NEGATIVE) 06/05/19 18:04 Urine RBC None seen /HPF (0-3) 06/05/19 18:04 Urine WBC 0-2 /HPF (0-5) 06/05/19 18:04 Ur Squamous Epith Cells Rare /HPF (NEGATIVE) 06/05/19 18:04 Ur Renal Epithelial Cell Rare /HPF (NEGATIVE) 06/05/19 18:04 Amorphous Sediment Trace /HPF (NEGATIVE) 06/05/19 18:04 Urine Bacteria Negative /HPF (NEGATIVE) 06/05/19 18:04 Ur Culture Indicated? No/not indicated 06/05/19 18:04 Plan (1) Pneumonia: Status: Acute Qualifiers: Laterality: bilateral Lung location: lower lobe of lung Pneumonia type: due to unspecified organism Qualified Code(s): J18.9 - Pneumonia, unspecified organism Plan: CXR: RUL bronchopneumonia Continue oxygen prn to keep sats > 92%, duonebs, IS Continue IV Rocephin and doxycycline, WBC trending down Follow sputum and blood cultures (2) AMS (altered mental status): Status: Acute Qualifiers: Altered mental status type: transient alteration of awareness Qualified Code(s): R40.4 - Transient alteration of awareness Plan: Resolved, CT head negative for acute changes (3) Weakness generalized: Status: Acute Plan: Due to underlying infection, hypotension Hx of CVA with chronic left sided weakness PT/OT (4) CVA (cerebral vascular accident): Status: Acute Qualifiers: CVA mechanism: unspecified Qualified Code(s): I63.9 - Cerebral infarction, unspecified Plan: CT head negative for acute changes, old left sided weakness. (5) Atrial fibrillation: Status: Acute Qualifiers: Atrial fibrillation type: unspecified Qualified Code(s): I48.91 - Unspecified atrial fibrillation Plan: s/p ablation, resume home medications: eliquis (6) Hypotension: Status: Acute Qualifiers: Hypotension type: hypotension due to hypovolemia Qualified Code(s): I95.89 - Other hypotension; E86.1 - Hypovolemia Plan: will DC IVF, encouraged eating and drinking. Monitor BP closely (7) Syncope: Status: Acute Qualifiers: Syncope type: unspecified Qualified Code(s): R55 - Syncope and collapse Plan: Hx of dizzy spells, currently seeing Neurology in [place]. Patient states she is suppose to have EEG. Could also be related to hypotension and infection. Continue to monitor on tele.
[2019-06-07] MEDS: VSL#3 PO SCH (09:58)
[2019-06-07] MEDS: CLARITIN PO SCH (09:58)
[2019-06-07] MEDS: PROTONIX TAB 40 MG PO SCH (09:58)
[2019-06-07] MEDS: ROBITUSSIN DM PO SCH ×4 (09:58→20:05)
[2019-06-07] MEDS: PROzac PO SCH (09:59)
[2019-06-07] MEDS: ELIQUIS PO SCH (09:59)
[2019-06-07] MEDS: PriLOSEC PO SCH (09:59)
[2019-06-07] MEDS: SINGULAIR TAB 10 MG PO SCH (09:59)
[2019-06-07] MEDS: LIORESAL PO PRN ×2 (09:59→20:05)
[2019-06-07] MEDS: ROCEPHIN VIAL 1 GRAM 1 G in NS 100 ML IV + SPIKE MINIBAG* 100 ML IV SCH (10:05)
[2019-06-07] MEDS: VIBRAMYCIN 100 MG in NS 100 ML IV + SPIKE MINIBAG* 100 ML IV SCH ×2 (10:06→22:42)
[2019-06-07] MEDS ORDERED: MOTRIN TAB 600 MG PO PRN (15:58)
[2019-06-07] MEDS: SYNTHROID 88 mcg TAB PO SCH (16:42)
[2019-06-07] MEDS: NEURONTIN CAP 400 MG PO SCH (20:05)
[2019-06-07] MEDS: LIPITOR TAB 40 MG PO SCH (20:06)
[2019-06-08] MEDS ORDERED: ULTRAM ONE (00:22)
[2019-06-08] MEDS: ULTRAM PO PRN ×3 (00:25→20:36)
[2019-06-08] MEDS ORDERED: NORCO 5/325 MG TAB PO ONE (01:59)
[2019-06-08] MEDS ORDERED: NORCO 5/325 MG TAB ONE (02:02)
[2019-06-08] MEDS: SYNTHROID 88 mcg TAB PO SCH (06:09)
[2019-06-08 06:12] LABS: BASOPHILS # (AUTO) 0.1 X10^3/uL (0.0-0.1); BASOPHILS % (AUTO) 0.7 % (0.2-1.0); EOSINOPHILS # (AUTO) 0.2 x10^3/uL (0.0-0.2); EOSINOPHILS % (AUTO) 2.7 % (0.9-2.9); HEMATOCRIT 29.9 % (36.0-47.0); HEMOGLOBIN 9.8 g/dL (12.0-16.0); LYMPHOCYTES # (AUTO) 1.5 X10^3/uL (1.3-2.9); MEAN CORPUSCULAR HEMOGLOBIN 27.4 pg (27.0-34.0); MEAN CORPUSCULAR HGB CONC 32.9 g/dL (33.0-35.0); MEAN CORPUSCULAR VOLUME 83.4 fL (80.0-100.0); MONOCYTES # (AUTO) 0.7 x10^3/uL (0.3-0.8); MONOCYTES % (AUTO) 8.5 % (0.0-13.0); NEUTROPHILS # (AUTO) 6.2 x10^3/uL (2.2-4.8); NEUTROPHILS % (AUTO) 71.1 % (42.0-75.0); PLATELET COUNT 167 X10^3/uL (150.0-450.0); RED BLOOD COUNT 3.58 X10^6/uL (3.5-5.4); RED CELL DISTRIBUTION WIDTH 16.4 % (11.6-16.5); WHITE BLOOD COUNT 8.7 X10^3/uL (3.6-10.0)
[2019-06-08 06:20] LABS: BLOOD UREA NITROGEN 9 mg/dL (7-18); CALCIUM 8.3 mg/dL (8.5-10.1); CHLORIDE 107 mmol/L (98-107); COR NA(FOR HYPERGLY) 144 mmol/L (136-145); CREATININE 0.69 mg/dL (0.55-1.02); MAGNESIUM 1.6 mg/dL (1.7-2.9); SODIUM 144 mmol/L (136-145); eGFR NON BLACK RACES > 60 (>60)
--- NOTE | 2019-06-08 06:24 | RAD ---
HISTORYSOBSTUDYAP [id number] normal heart size. The left chest is grossly clear. There is increasing linear infiltrate in the right upper lobe. No discrete mass, adenopathy or developing pleural fluid is noted.IMPRESSIONIncreasing prominence of right upper lobe infiltrate/atelectasis. There is no evidence for trey pulmonary edema, pneumothorax or significant pleural abnormality.Electronically signed by: KIMBERLY MELTON (Jun 08, 2019 06:23:19)
[2019-06-08] MEDS ORDERED: K-RIDER 10 MEQ/NS 100 ML 10 MEQ/100 ML BAG IV PRN (08:13)
[2019-06-08] MEDS ORDERED: POTASSIUM CHL 40 MEQ/NS 0.45% 500 ML IV PRN (08:13)
[2019-06-08] MEDS ORDERED: POTASSIUM CHLORIDE LIQ 20 MEQ UDC PO PRN (08:13)
[2019-06-08] MEDS ORDERED: KLOR-CON PO PRN (08:13)
[2019-06-08] MEDS ORDERED: K-DUR TAB 20 MEQ PO PRN (08:13)
[2019-06-08] MEDS ORDERED: POTASSIUM CHL 60 MEQ/NS 0.45% 500 ML IV PRN (08:13)
[2019-06-08] MEDS ORDERED: MICRO K EXTEN CAP 10 MEQ PO PRN (08:13)
[2019-06-08] MEDS: DUONEB 0.5 MG/3 MG (3 mL) NEB SCH ×4 (08:40→21:45)
[2019-06-08] MEDS: ROCEPHIN VIAL 1 GRAM 1 G in NS 100 ML IV + SPIKE MINIBAG* 100 ML IV SCH (09:06)
[2019-06-08] MEDS: VSL#3 PO SCH (09:18)
[2019-06-08] MEDS: CLARITIN PO SCH (09:18)
[2019-06-08] MEDS: ELIQUIS PO SCH (09:18)
[2019-06-08] MEDS: PROTONIX TAB 40 MG PO SCH (09:19)
[2019-06-08] MEDS: SINGULAIR TAB 10 MG PO SCH (09:19)
[2019-06-08] MEDS: PriLOSEC PO SCH (09:19)
[2019-06-08] MEDS: SOLU-Medrol 40 MG VIAL IVP SCH ×3 (09:19→21:08)
[2019-06-08] MEDS: PROzac PO SCH (09:20)
[2019-06-08] MEDS: ROBITUSSIN DM PO SCH ×4 (09:52→20:35)
[2019-06-08] MEDS: VIBRAMYCIN 100 MG in NS 100 ML IV + SPIKE MINIBAG* 100 ML IV SCH ×2 (09:52→20:38)
[2019-06-08] MEDS: MAGNESIUM SULFATE 1 GRAM/100 mL PREMIX 1 GM/100 ML BAG IV PRN ×2 (11:13→12:27)
[2019-06-08] MEDS ORDERED: COLACE CAP 100 MG PO ONE ×2 (20:04→20:13)
[2019-06-08] MEDS: COLACE CAP 100 MG PO PRN (20:36)
[2019-06-08] MEDS: LIPITOR TAB 40 MG PO SCH (20:36)
[2019-06-08] MEDS: NEURONTIN CAP 400 MG PO SCH (20:37)
[2019-06-08] MEDS: LIORESAL PO PRN (23:18)
[2019-06-09] MEDS: ULTRAM PO PRN ×4 (03:21→20:44)
[2019-06-09] MEDS: LIORESAL PO PRN ×2 (05:14→20:43)
[2019-06-09] MEDS: SOLU-Medrol 40 MG VIAL IVP SCH ×3 (05:15→21:00)
[2019-06-09 05:40] LABS: BLOOD UREA NITROGEN 11 mg/dL (7-18); CALCIUM 8.8 mg/dL (8.5-10.1); CARBON DIOXIDE 31.8 mmol/L (21-32); CHLORIDE 105 mmol/L (98-107); COR NA(FOR HYPERGLY) 142 mmol/L (136-145); CREATININE 0.73 mg/dL (0.55-1.02); MAGNESIUM 1.9 mg/dL (1.7-2.9); SODIUM 141 mmol/L (136-145); eGFR NON BLACK RACES > 60 (>60)
[2019-06-09 05:46] LABS: BASOPHILS % (AUTO) 0.2 % (0.2-1.0); HEMATOCRIT 30.1 % (36.0-47.0); LYMPHOCYTES # (AUTO) 0.5 X10^3/uL (1.3-2.9); LYMPHOCYTES % (AUTO) 4.3 % (21.0-51.0); MEAN CORPUSCULAR HEMOGLOBIN 27.8 pg (27.0-34.0); MEAN CORPUSCULAR HGB CONC 33.2 g/dL (33.0-35.0); MEAN CORPUSCULAR VOLUME 83.8 fL (80.0-100.0); MEAN PLATELET VOLUME 9.4 fL (7.4-11.0); MONOCYTES # (AUTO) 0.3 x10^3/uL (0.3-0.8); MONOCYTES % (AUTO) 2.6 % (0.0-13.0); NEUTROPHILS # (AUTO) 11.2 x10^3/uL (2.2-4.8); NEUTROPHILS % (AUTO) 92.9 % (42.0-75.0); PLATELET COUNT 202 X10^3/uL (150.0-450.0); RED BLOOD COUNT 3.59 X10^6/uL (3.5-5.4); RED CELL DISTRIBUTION WIDTH 16.5 % (11.6-16.5); WHITE BLOOD COUNT 12.1 X10^3/uL (3.6-10.0)
[2019-06-09] MEDS: SYNTHROID 88 mcg TAB PO SCH (06:04)
--- NOTE | 2019-06-09 06:16 | RAD ---
History: [Chest pain and dyspnea].Exam: [Single portable view of the chest].Comparison: [June 08, 2019].Findings: The trachea is [midline]. The cardiomediastinal silhouette is [within normal limits]. There is [no evidence for CHF or pulmonary edema]. [There is no pneumothorax. There is an unchanged scar-like parenchymal opacity in the RUL should be followed up to resolution in order to exclude malignancy versus infection to account for this finding]. The chest is hyperinflated with an increased AP dimension of the chest, diaphragmatic flattening, and central interstitial changes which would be compatible with changes of obstructive airways disease. []. [No acute bony abnormalities are seen].Impression:1. [No acute changes observed]. Unchanged RUL scar-like opacity which could reflect infection, scar, or possibly a malignancy. Radiographic follow-up to complete resolution recommended. Chest CT imaging follow-up will be needed at some point.2. [Findings of obstructive airways disease].Electronically signed by: SAL BURRELL III (Jun 09, 2019 06:15:30)
[2019-06-09] MEDS: DUONEB 0.5 MG/3 MG (3 mL) NEB SCH ×4 (09:00→20:10)
[2019-06-09] MEDS: PROTONIX TAB 40 MG PO SCH (09:13)
[2019-06-09] MEDS: PriLOSEC PO SCH (09:13)
[2019-06-09] MEDS: CLARITIN PO SCH (09:13)
[2019-06-09] MEDS: ELIQUIS PO SCH (09:13)
[2019-06-09] MEDS: PROzac PO SCH (09:13)
[2019-06-09] MEDS: SINGULAIR TAB 10 MG PO SCH (09:14)
[2019-06-09] MEDS: ROBITUSSIN DM PO SCH ×4 (09:14→20:43)
[2019-06-09] MEDS: ROCEPHIN VIAL 1 GRAM 1 G in NS 100 ML IV + SPIKE MINIBAG* 100 ML IV SCH (09:14)
[2019-06-09] MEDS: VSL#3 PO SCH (09:14)
[2019-06-09] MEDS: VIBRAMYCIN 100 MG in NS 100 ML IV + SPIKE MINIBAG* 100 ML IV SCH ×2 (09:45→20:42)
--- NOTE | 2019-06-09 13:16 | CT ---
CHEST WITH CONCLINICAL INDICATION: sob, pneumoniaPROCEDURE: Following administration of non-ionic IV contrast, postcontrast CT images were obtained through the chest. Dose reduction techniques including Automated Exposure Control (AEC) and adjustment of mA and kV were utlized.COMPARISON: [None]FINDINGS:The heart is normal in size . No pericardial effusion. Severe coronary calcification. No suspicious mediastinal or axillary lymph nodes. Esophagus is fluid-filled. Moderate emphysema. Patchy ground-glass nodularity in the dependent portions of the lungs bilaterally. Trace bilateral pleural effusions..Airways are patent . No suspicious pulmonary nodules or masses .Limited images of the upper abdomen are unremarkable.No aggressive osseous lesions.IMPRESSION:1. Patchy bilateral ground-glass, septal thickening and trace bilateral effusions which may represent infection in the correct clinical setting.2. Fluid-filled esophagus. Correlate with symptoms of reflux.3. Severe coronary calcification.Electronically signed by: LEEANNA NICOLE (Jun 09, 2019 13:15:15)
[2019-06-09] MEDS: COLACE CAP 100 MG PO PRN (16:01)
--- NOTE | 2019-06-09 18:44 | PCM.PROG ---
Progress Note - Progress Note for Day of Date of Exam: 06/08/19 - Subjective Subjective: IS BEING TREATED FOR BIBASILAR AND RUL PNEUMONIA. TODAY, SHE IS ALERT AND ORIENTED, LYING IN BED ON MORNING ROUNDS. SHE CONTINUES WITH COMPLAINTS OF COUGH AND SHORTNESS OF BREATH TODAY. ON EXAMINATION, HEART IS REGULAR IN RATE AND RHYTHM. BILATERAL LUNGS ARE NOTED WITH DIMINISHED LUNG SOUNDS THROUGHOUT. ABDOMEN IS ROUND, SOFT, AND NON-TENDER WITH NORMAL BOWEL SOUNDS NOTED IN ALL QUADRANTS. HER VITALS THIS MORNING ARE: 97.4-80-18-97%-132/62. LABS WERE OBTAINED. ABNORMAL LAB VALUES INCLUDE THE FOLLOWING: HGB 9.8, HCT 29.9, POTASSIUM 3.3, GLUCOSE 112, CALCIUM 8.3, MAGNESIUM 1.6. BLOOD AND SPUTUM CULTURES ARE PENDING. A CHEST XRAY WAS OBTAINED AND REVEALED: creasing prominence of right upper lobe infiltrate/atelectasis. There is no evidence for trey pulmonary edema, pneumothorax or significant pleural abnormality. SHE IS CURRENTLY RECEIVING DOXYCYCLINE IV, ROCEPIN IV, RESPIRATORY TX, TUSSIONEX, ROBITUSSIN, THE POTASSIUM AND MANESIUM PROTOCOLS, AND HOME MEDICATIONS WERE RESUMED. TODAY, WE WILL START SOLU-MEDROL 80MG IV Q8H. OTHERWISE, WE WILL CONTINUE WITH CURRENT PLAN OF CARE TODAY. WE WILL FOLLOW UP WITH AM LABS AND CONTINUE TO MONITOR. - Past Medical Family Social History Past Med/Fam/Surg Hx: No changes since H&P Allergies: Allergies Sulfa (Sulfonamide Antibiotics) [SULFA] Allergy (Verified 06/05/19 14:48) - Review of Systems ROS: No change since H&P - Vital Signs and I&O's Vital Signs: Temperature 98.7 F Pulse Rate [Right Brachial] 76 Pulse Rate 88 Respiratory Rate 18 Blood Pressure [Left Arm] 144/68 Blood Pressure 112/83 O2 Sat by Pulse Oximetry 98 Intake and Output: Intake & Output 06/07/19 06/08/19 06/09/19 06/10/19 11:59 11:59 11:59 11:59 Intake Total 3891 / 3891 2354 / 2354 1550 / 1550 600 / 600 Output Total 7 / 7 600 / 600 1200 / 1200 Balance 3884 / 3884 2354 / 2354 950 / 950 -600 / -600 - Physical Exam Oriented: Normal Eyes: Normal Ear: Normal Nose: Normal Throat: Normal Respiratory: Generalized, Diminished Cardiovascular: Normal. negative: Edema : Normal Auscultation: Bowel Sounds: Normal Palpation: Normal Tenderness: Normal Skin: Normal Musculoskeletal: Arm (slight left side weakness compared to the right), Left Psychiatric: Normal Mood Description: Calm Affect: Normal Speech Pattern: Clear, Appropriate - Laboratory and Diagnostics Result Diagrams: 06/09/19 05:07 06/09/19 05:07 Labs: 06/06/19 11:40 Sputum - Expectorated Sputum Sputum Culture - Final 06/06/19 11:40 Sputum - Expectorated Sputum - Final 06/05/19 18:17 Blood Blood Culture - Preliminary 06/05/19 18:17 Blood Blood Culture - Preliminary Laboratory WBC 12.1 X10^3/uL (3.6-10.0) H 06/09/19 05:07 RBC 3.59 X10^6/uL (3.5-5.4) 06/09/19 05:07 Hgb 10.0 g/dL (12.0-16.0) L 06/09/19 05:07 Hct 30.1 % (36.0-47.0) L 06/09/19 05:07 MCV 83.8 fL (80.0-100.0) 06/09/19 05:07 MCH 27.8 pg (27.0-34.0) 06/09/19 05:07 MCHC 33.2 g/dL (33.0-35.0) 06/09/19 05:07 RDW 16.5 % (11.6-16.5) 06/09/19 05:07 Plt Count 202 X10^3/uL (150.0-450.0) 06/09/19 05:07 Plt Count Comment Adequate (ADEQUATE) 06/09/19 05:07 MPV 9.4 fL (7.4-11.0) 06/09/19 05:07 Neut % (Auto) 92.9 % (42.0-75.0) H 06/09/19 05:07 Lymph % (Auto) 4.3 % (21.0-51.0) L 06/09/19 05:07 [place] % (Auto) 2.6 % (0.0-13.0) 06/09/19 05:07 Eos % (Auto) 0.0 % (0.9-2.9) L 06/09/19 05:07 Baso % (Auto) 0.2 % (0.2-1.0) 06/09/19 05:07 Neut # (Auto) 11.2 x10^3/uL (2.2-4.8) H 06/09/19 05:07 Lymph # (Auto) 0.5 X10^3/uL (1.3-2.9) L 06/09/19 05:07 [place] # (Auto) 0.3 x10^3/uL (0.3-0.8) 06/09/19 05:07 Eos # (Auto) 0.0 x10^3/uL (0.0-0.2) 06/09/19 05:07 Baso # (Auto) 0.0 X10^3/uL (0.0-0.1) 06/09/19 05:07 Absolute Nucleated RBC 0.0 /100WBC 06/09/19 05:07 Total Counted 100 06/09/19 05:07 Neutrophils % (Manual) 93 % (39-76) H 06/09/19 05:07 Band Neutrophils % 3 % (0-10) 06/05/19 15:20 Lymphocytes % (Manual) 4 % (13-43) L 06/09/19 05:07 Monocytes % (Manual) 3 % (4-9) L 06/09/19 05:07 Eosinophils % (Manual) 1 % (0-6) 06/05/19 15:20 Plt Morphology Comment Not Reportable 06/09/19 05:07 RBC Morphology Normal (NORMAL) 06/09/19 05:07 Hypochromasia Slight A 06/05/19 15:20 Sodium 141 mmol/L (136-145) 06/09/19 05:07 Corrected Sodium 142 mmol/L (136-145) 06/09/19 05:07 Potassium 4.5 mmol/L (3.5-5.1) 06/09/19 05:07 Chloride 105 mmol/L (98-107) 06/09/19 05:07 Carbon Dioxide 31.8 mmol/L (21-32) 06/09/19 05:07 BUN 11 mg/dL (7-18) 06/09/19 05:07 Creatinine 0.73 mg/dL (0.55-1.02) 06/09/19 05:07 Est GFR (MDRD) Af Amer > 60 (>60) 06/09/19 05:07 Est GFR (MDRD) Non-Af > 60 (>60) 06/09/19 05:07 Glucose 139 mg/dL (65-99) H 06/09/19 05:07 Lactic Acid 1.2 mmol/L (0.4-2.0) 06/05/19 18:17 Calcium 8.8 mg/dL (8.5-10.1) 06/09/19 05:07 Corrected Calcium 9.3 mg/dL (8.5-10.1) 06/06/19 04:28 Magnesium 1.9 mg/dL (1.7-2.9) 06/09/19 05:07 Total Bilirubin 0.30 mg/dL (0.2-1.0) 06/06/19 04:28 AST 13 Units/L (15-37) L 06/06/19 04:28 ALT 14 Units/L (12-78) 06/06/19 04:28 Alkaline Phosphatase 75 Units/L (46-116) 06/06/19 04:28 Creatine Kinase 90 Units/L (26-192) 06/05/19 15:20 CK-MB (CK-2) < 1.0 ng/mL (0-4.0) 06/05/19 15:20 CK/CKMB % Calc 1.1 % (<4) 06/05/19 15:20 Troponin I < 0.02 ng/mL (0-1.5) 06/05/19 15:20 Total Protein 6.1 g/dL (6.4-8.2) L 06/06/19 04:28 Albumin 2.7 g/dL (3.4-5.0) L 06/06/19 04:28 Globulin 3.4 g/dL (2.5-4.5) 06/06/19 04:28 Albumin/Globulin Ratio 0.8 Ratio (1.1-2.1) L 06/06/19 04:28 Specimen Type Clean catch urine 06/05/19 18:04 Urine Color Pale yellow (YELLOW) 06/05/19 18:04 Urine Appearance Clear (CLEAR) 06/05/19 18:04 Urine pH 7.0 (5.0 - 8.0) 06/05/19 18:04 Ur Specific [place] 1.005 (1.000-1.030) 06/05/19 18:04 Urine Protein 1+ (NEGATIVE) 06/05/19 18:04 Urine Glucose (UA) Negative (NEGATIVE) 06/05/19 18:04 Urine Ketones Negative (NEGATIVE) 06/05/19 18:04 Urine Occult Blood Negative (NEGATIVE) 06/05/19 18:04 Urine Nitrite Negative (NEGATIVE) 06/05/19 18:04 Urine Bilirubin Negative (NEGATIVE) 06/05/19 18:04 Urine Urobilinogen Normal (NORMAL) 06/05/19 18:04 Ur Leukocyte Esterase Negative (NEGATIVE) 06/05/19 18:04 Urine RBC None seen /HPF (0-3) 06/05/19 18:04 Urine WBC 0-2 /HPF (0-5) 06/05/19 18:04 Ur Squamous Epith Cells Rare /HPF (NEGATIVE) 06/05/19 18:04 Ur Renal Epithelial Cell Rare /HPF (NEGATIVE) 06/05/19 18:04 Amorphous Sediment Trace /HPF (NEGATIVE) 06/05/19 18:04 Urine Bacteria Negative /HPF (NEGATIVE) 06/05/19 18:04 Ur Culture Indicated? No/not indicated 06/05/19 18:04 - Plan (1) Pneumonia Status: Acute Qualifiers: Pneumonia type: due to unspecified organism Laterality: bilateral Lung location: lower lobe of lung Qualified Code(s): J18.9 - Pneumonia, unspecified organism Plan: CXR: RUL bronchopneumonia. Continue oxygen prn to keep sats > 92%, duonebs, IS. Continue IV Rocephin and doxycycline, WBC trending down. Follow sputum and blood cultures (2) Left-sided weakness Status: Acute
[2019-06-09] MEDS: NEURONTIN CAP 400 MG PO SCH (20:44)
[2019-06-09] MEDS: COLACE CAP 100 MG PO SCH (20:44)
[2019-06-09] MEDS: LIPITOR TAB 40 MG PO SCH (20:46)
[2019-06-10] MEDS: ULTRAM PO PRN ×4 (00:35→21:20)
[2019-06-10] MEDS: SOLU-Medrol 40 MG VIAL IVP SCH (05:28)
[2019-06-10] MEDS: SYNTHROID 88 mcg TAB PO SCH (06:00)
[2019-06-10 06:21] LABS: BLOOD UREA NITROGEN 13 mg/dL (7-18); CALCIUM 9.1 mg/dL (8.5-10.1); CARBON DIOXIDE 31.7 mmol/L (21-32); CHLORIDE 105 mmol/L (98-107); COR NA(FOR HYPERGLY) 141 mmol/L (136-145); CREATININE 0.68 mg/dL (0.55-1.02); SODIUM 140 mmol/L (136-145); eGFR NON BLACK RACES > 60 (>60)
[2019-06-10 06:24] LABS: BASOPHILS % (AUTO) 0.1 % (0.2-1.0); HEMATOCRIT 30.7 % (36.0-47.0); LYMPHOCYTES # (AUTO) 0.7 X10^3/uL (1.3-2.9); LYMPHOCYTES % (AUTO) 4.5 % (21.0-51.0); MEAN CORPUSCULAR HEMOGLOBIN 27.1 pg (27.0-34.0); MEAN CORPUSCULAR HGB CONC 32.4 g/dL (33.0-35.0); MEAN CORPUSCULAR VOLUME 83.6 fL (80.0-100.0); MEAN PLATELET VOLUME 9.2 fL (7.4-11.0); MONOCYTES # (AUTO) 0.7 x10^3/uL (0.3-0.8); MONOCYTES % (AUTO) 4.5 % (0.0-13.0); NEUTROPHILS # (AUTO) 14.6 x10^3/uL (2.2-4.8); NEUTROPHILS % (AUTO) 90.9 % (42.0-75.0); PLATELET COUNT 226 X10^3/uL (150.0-450.0); RED BLOOD COUNT 3.67 X10^6/uL (3.5-5.4); RED CELL DISTRIBUTION WIDTH 16.6 % (11.6-16.5)
--- NOTE | 2019-06-10 07:16 | RAD ---
HISTORYChronic shortness of breathSTUDYCHEST, 1 VIEWCOMPARISONFebruary 2019FINDINGSThe heart is within normal limits in size. The kitty are normal. The lungs are free of acute alveolar infiltrates. No pleural effusions are identified. Pleural parenchymal scarring is present in the right upper lobe, stable. Mild hyperinflation is present. No pleural effusions are identified. Bony thorax is unremarkable.IMPRESSIONMild hyperinflation without acute infiltratesStable pleural parenchymal scarring right upper lobeElectronically signed by: SEB RAYMOND (Jun 10, 2019 07:15:44)
[2019-06-10 07:52] LABS: PLATELET MORPHOLOGY COMMENT NORMAL (NORMAL)
[2019-06-10] MEDS: CLARITIN PO SCH (08:43)
[2019-06-10] MEDS: ELIQUIS PO SCH (08:43)
[2019-06-10] MEDS: MILK OF MAGNESIA PO SCH (08:44)
[2019-06-10] MEDS: PROTONIX TAB 40 MG PO SCH (08:44)
[2019-06-10] MEDS: PriLOSEC PO SCH (08:44)
[2019-06-10] MEDS: PROzac PO SCH (08:44)
[2019-06-10] MEDS: SINGULAIR TAB 10 MG PO SCH (08:45)
[2019-06-10] MEDS: ROCEPHIN VIAL 1 GRAM 1 G in NS 100 ML IV + SPIKE MINIBAG* 100 ML IV SCH (08:45)
[2019-06-10] MEDS: ROBITUSSIN DM PO SCH ×4 (08:45→21:20)
[2019-06-10] MEDS: PREDNISONE TAB 20 MG PO SCH (08:47)
[2019-06-10] MEDS: PULMICORT NEB TX 0.5 MG NEB SCH ×2 (08:48→20:35)
[2019-06-10] MEDS: DUONEB 0.5 MG/3 MG (3 mL) NEB SCH ×4 (08:48→20:35)
[2019-06-10] MEDS: VSL#3 PO SCH (09:05)
[2019-06-10] MEDS: VIBRAMYCIN 100 MG in NS 100 ML IV + SPIKE MINIBAG* 100 ML IV SCH (09:45)
--- NOTE | 2019-06-10 13:01 | PCM.PROG ---
Progress Note Progress Note for Day of Date of Exam: 06/10/19 Subjective Subjective: No acute events overnight, patient seen at bedside. She reports feeling short of breath with ambulation in the room. She is currently on 1L NC sats in 90s. She has had dry cough. She denies fever or chills, she reports slight improvement in appetite. She eats small meals and snacks due to ga stroparesis. She reports hx of large hiatal hernia, recent EGD done. Patient has a hx of stroke and was seen by speech therapy then. She reports no difficulty with swallowing but she does cough sometimes while eating. She had an episode of pneumonia last year and was also in the right lung. CXR today shows Mild hyperinflation without acute infiltrates. Stable pleural parenchymal scarring right upper lobe. Patient recurrent pneumonia could be 2/2 to micro aspiration. Patient sees GI in [place]. Will DC IV abx and switch to augmentin to cover for aspiration. Switch to prednisone. Continue Duonebs, IS. Will add Pulmicort BID. Rt to walk patient and assess oxygen needs. Past Medical Family Social History Past Med/Fam/Surg Hx: No changes since H&P Allergies: Allergies Sulfa (Sulfonamide Antibiotics) [SULFA] Allergy (Verified 06/05/19 14:48) Review of Systems ROS: No change since H&P Vital Signs and I&O's Vital Signs: Temperature 98.3 F Pulse Rate [Right Brachial] 76 Pulse Rate 83 Respiratory Rate 24 Blood Pressure [Left Arm] 144/68 Blood Pressure 131/62 O2 Sat by Pulse Oximetry 96 Intake and Output: Intake & Output 06/07/19 06/08/19 06/09/19 06/10/19 23:59 23:59 23:59 23:59 Intake Total 2973 / 2973 1660 / 1660 1200 / 1200 200 / 200 Output Total 100 / 100 1950 / 1950 400 / 400 Balance 2972 / 2972 1560 / 1560 -750 / -750 -200 / -200 Physical Exam Oriented: Normal Eyes: Normal Ear: Normal Nose: Normal Throat: Normal Respiratory: Generalized and Rhonchi Cardiovascular: Normal; negative Edema Auscultation: Bowel Sounds: Normal Tenderness: Normal Skin: Normal Musculoskeletal: Left and Arm (slight left side weakness compared to the right ) Psychiatric: Normal Mood Description: Calm Affect: Normal Speech Pattern: Clear and Appropriate Laboratory and Diagnostics Result Diagrams: 06/10/19 05:07 06/10/19 05:07 Labs: 06/06/19 11:40 Sputum - Expectorated Sputum Sputum Culture - Final 06/06/19 11:40 Sputum - Expectorated Sputum - Final 06/05/19 18:17 Blood Blood Culture - Preliminary 06/05/19 18:17 Blood Blood Culture - Preliminary Laboratory WBC 16.0 X10^3/uL (3.6-10.0) H 06/10/19 05:07 RBC 3.67 X10^6/uL (3.5-5.4) 06/10/19 05:07 Hgb 10.0 g/dL (12.0-16.0) L 06/10/19 05:07 Hct 30.7 % (36.0-47.0) L 06/10/19 05:07 MCV 83.6 fL (80.0-100.0) 06/10/19 05:07 MCH 27.1 pg (27.0-34.0) 06/10/19 05:07 MCHC 32.4 g/dL (33.0-35.0) L 06/10/19 05:07 RDW 16.6 % (11.6-16.5) H 06/10/19 05:07 Plt Count 226 X10^3/uL (150.0-450.0) 06/10/19 05:07 Plt Count Comment Adequate (ADEQUATE) 06/10/19 05:07 MPV 9.2 fL (7.4-11.0) 06/10/19 05:07 Neut % (Auto) 90.9 % (42.0-75.0) H 06/10/19 05:07 Lymph % (Auto) 4.5 % (21.0-51.0) L 06/10/19 05:07 [place] % (Auto) 4.5 % (0.0-13.0) 06/10/19 05:07 Eos % (Auto) 0.0 % (0.9-2.9) L 06/10/19 05:07 Baso % (Auto) 0.1 % (0.2-1.0) L 06/10/19 05:07 Neut # (Auto) 14.6 x10^3/uL (2.2-4.8) H 06/10/19 05:07 Lymph # (Auto) 0.7 X10^3/uL (1.3-2.9) L 06/10/19 05:07 [place] # (Auto) 0.7 x10^3/uL (0.3-0.8) 06/10/19 05:07 Eos # (Auto) 0.0 x10^3/uL (0.0-0.2) 06/10/19 05:07 Baso # (Auto) 0.0 X10^3/uL (0.0-0.1) 06/10/19 05:07 Absolute Nucleated RBC 0.0 /100WBC 06/10/19 05:07 Total Counted 100 06/10/19 05:07 Neutrophils % (Manual) 90 % (39-76) H 06/10/19 05:07 Band Neutrophils % 3 % (0-10) 06/05/19 15:20 Lymphocytes % (Manual) 6 % (13-43) L 06/10/19 05:07 Monocytes % (Manual) 4 % (4-9) 06/10/19 05:07 Eosinophils % (Manual) 1 % (0-6) 06/05/19 15:20 Plt Morphology Comment Normal (NORMAL) 06/10/19 05:07 RBC Morphology Normal (NORMAL) 06/10/19 05:07 Hypochromasia Slight A 06/05/19 15:20 Sodium 140 mmol/L (136-145) 06/10/19 05:07 Corrected Sodium 141 mmol/L (136-145) 06/10/19 05:07 Potassium 4.5 mmol/L (3.5-5.1) 06/10/19 05:07 Chloride 105 mmol/L (98-107) 06/10/19 05:07 Carbon Dioxide 31.7 mmol/L (21-32) 06/10/19 05:07 BUN 13 mg/dL (7-18) 06/10/19 05:07 Creatinine 0.68 mg/dL (0.55-1.02) 06/10/19 05:07 Est GFR (MDRD) Af Amer > 60 (>60) 06/10/19 05:07 Est GFR (MDRD) Non-Af > 60 (>60) 06/10/19 05:07 Glucose 138 mg/dL (65-99) H 06/10/19 05:07 Lactic Acid 1.2 mmol/L (0.4-2.0) 06/05/19 18:17 Calcium 9.1 mg/dL (8.5-10.1) 06/10/19 05:07 Corrected Calcium 9.3 mg/dL (8.5-10.1) 06/06/19 04:28 Magnesium 1.9 mg/dL (1.7-2.9) 06/09/19 05:07 Total Bilirubin 0.30 mg/dL (0.2-1.0) 06/06/19 04:28 AST 13 Units/L (15-37) L 06/06/19 04:28 ALT 14 Units/L (12-78) 06/06/19 04:28 Alkaline Phosphatase 75 Units/L (46-116) 06/06/19 04:28 Creatine Kinase 90 Units/L (26-192) 06/05/19 15:20 CK-MB (CK-2) < 1.0 ng/mL (0-4.0) 06/05/19 15:20 CK/CKMB % Calc 1.1 % (<4) 06/05/19 15:20 Troponin I < 0.02 ng/mL (0-1.5) 06/05/19 15:20 Total Protein 6.1 g/dL (6.4-8.2) L 06/06/19 04:28 Albumin 2.7 g/dL (3.4-5.0) L 06/06/19 04:28 Globulin 3.4 g/dL (2.5-4.5) 06/06/19 04:28 Albumin/Globulin Ratio 0.8 Ratio (1.1-2.1) L 06/06/19 04:28 Specimen Type Clean catch urine 06/05/19 18:04 Urine Color Pale yellow (YELLOW) 06/05/19 18:04 Urine Appearance Clear (CLEAR) 06/05/19 18:04 Urine pH 7.0 (5.0 - 8.0) 06/05/19 18:04 Ur Specific [place] 1.005 (1.000-1.030) 06/05/19 18:04 Urine Protein 1+ (NEGATIVE) 06/05/19 18:04 Urine Glucose (UA) Negative (NEGATIVE) 06/05/19 18:04 Urine Ketones Negative (NEGATIVE) 06/05/19 18:04 Urine Occult Blood Negative (NEGATIVE) 06/05/19 18:04 Urine Nitrite Negative (NEGATIVE) 06/05/19 18:04 Urine Bilirubin Negative (NEGATIVE) 06/05/19 18:04 Urine Urobilinogen Normal (NORMAL) 06/05/19 18:04 Ur Leukocyte Esterase Negative (NEGATIVE) 06/05/19 18:04 Urine RBC None seen /HPF (0-3) 06/05/19 18:04 Urine WBC 0-2 /HPF (0-5) 06/05/19 18:04 Ur Squamous Epith Cells Rare /HPF (NEGATIVE) 06/05/19 18:04 Ur Renal Epithelial Cell Rare /HPF (NEGATIVE) 06/05/19 18:04 Amorphous Sediment Trace /HPF (NEGATIVE) 06/05/19 18:04 Urine Bacteria Negative /HPF (NEGATIVE) 06/05/19 18:04 Ur Culture Indicated? No/not indicated 06/05/19 18:04 Plan (1) Pneumonia: Status: Acute Qualifiers: Laterality: bilateral Lung location: lower lobe of lung Pneumonia typ e: due to unspecified organism Qualified Code(s): J18.9 - Pneumonia, unspecified organism Plan: CXR: RUL bronchopneumonia Continue oxygen prn to keep sats > 92%, alessandra, IS Cultures negative Will DC doxycycline and Rocephin, switch to augmentin to cover anaerobes Switch to prednisone, add Pulmicort (2) Left-sided weakness: Status: Acute
[2019-06-10] MEDS: AUGMENTIN 875 MG/125 MG TAB PO SCH (13:53)
[2019-06-10] MEDS: LIORESAL PO PRN ×2 (17:14→21:21)
[2019-06-10] MEDS: NEURONTIN CAP 400 MG PO SCH (21:19)
[2019-06-10] MEDS: LIPITOR TAB 40 MG PO SCH (21:19)
[2019-06-10] MEDS: COLACE CAP 100 MG PO SCH (21:19)
[2019-06-11] MEDS: AUGMENTIN 875 MG/125 MG TAB PO SCH (04:02)
[2019-06-11] MEDS: SYNTHROID 88 mcg TAB PO SCH (06:14)
--- NOTE | 2019-06-11 08:56 | W.DIS.FURT ---
Summary of Discharge Discharge Summary of Date Date of Exam: 06/11/19 Admission Date Date of Admission: 06/05/19 Admission Diagnosis Hospital Course: Ms. Umanzor is a 68y/o female with a PMH of CVA with left sided weakness, atrial fibrillation s/p ablation and HTN presented after having a syncopal episode at home. She states she was walking to the bathroom and passed out. She denies feeling sick prior to the episode. She states she felt dizzy, weak and fell. She has a hx of dizzy spells, currently seeing Neurology in [place] and was suppose to have an EEG. She was also confused on admission. Patient denies fever, cough or any URI symptoms. She reports chills. She also states she has had 2 admissions for pneumonia and she never really has respiratory symptoms. CT- head: old lacunar infarct, no acute changes, CXR: RUL bronchopneumonia Labs: elevated WBC 21.3, normal lactic acid, normal cardiac enzymes. Patient was admitted for acute respiratory failure 2/2 to RUL pneumonia. She was started on IV antibiotics and duonebs. Patient required 2L of oxygen at rest and with ambulation. Repeat imaging continued to show right sided opacity with possible ddx including malignancy. CT-chest was done which showed ground glass opacities in the right lung. She was started on solumedrol. Patient has had prev infection in the same area, could be 2/2 to aspiration. She does see GI and reports occasional cough while eating. PT/OT and RT were consulted, patient did not need any rehab or home health services. She also did not need oxygen with rest and ambulation. Her sputum and blood cultures remained negative. She was switched to Augmentin to cover anaerobes and started on prednisone taper. She was stable for discharge. She will follow up with PCP on discharge and also pulmonary rehab. Vital Signs: Vital Signs (72 hours) 06/08/19 09:00 06/08/19 10:00 06/08/19 11:00 Temperature 98.3 F Pulse Rate Pulse Rate [Right Brachial] 84 80 79 Respiratory Rate 16 13 21 Blood Pressure Blood Pressure [Left Arm] 144/69 153/74 144/75 O2 Sat by Pulse Oximetry 98 97 96 06/08/19 12:00 06/08/19 12:10 06/08/19 13:00 Temperature Pulse Rate 85 Pulse Rate [Right Brachial] 79 86 Respiratory Rate 18 16 Blood Pressure Blood Pressure [Left Arm] 153/77 151/77 O2 Sat by Pulse Oximetry 95 97 95 06/08/19 14:00 06/08/19 15:00 06/08/19 15:24 Temperature Pulse Rate Pulse Rate [Right Brachial] 92 H 95 H Respiratory Rate 17 20 20 Blood Pressure Blood Pressure [Left Arm] 134/64 132/65 O2 Sat by Pulse Oximetry 95 96 06/08/19 16:00 06/08/19 16:24 06/08/19 17:00 Temperature 98.2 F Pulse Rate Pulse Rate [Right Brachial] 86 88 Respiratory Rate 22 20 17 Blood Pressure Blood Pressure [Left Arm] 133/71 138/75 O2 Sat by Pulse Oximetry 94 L 96 06/08/19 17:19 06/08/19 18:00 06/08/19 18:16 Temperature Pulse Rate 86 Pulse Rate [Right Brachial] 101 H 76 Respiratory Rate 21 Blood Pressure Blood Pressure [Left Arm] 144/68 O2 Sat by Pulse Oximetry 97 93 L 06/08/19 19:00 06/08/19 20:00 06/08/19 20:36 Temperature 97.4 F L Pulse Rate 101 H 90 Pulse Rate [Right Brachial] Respiratory Rate 35 H 25 H 23 Blood Pressure 132/65 132/66 Blood Pressure [Left Arm] O2 Sat by Pulse Oximetry 93 L 96 06/08/19 21:00 06/08/19 21:36 06/08/19 21:45 Temperature Pulse Rate 87 87 Pulse Rate [Right Brachial] Respiratory Rate 29 H 16 Blood Pressure 128/70 Blood Pressure [Left Arm] O2 Sat by Pulse Oximetry 93 L 96 06/08/19 22:00 06/08/19 23:00 06/09/19 00:00 Temperature 97.2 F L Pulse Rate 84 89 84 Pulse Rate [Right Brachial] Respiratory Rate 15 25 H 26 H Blood Pressure 154/73 133/67 138/67 Blood Pressure [Left Arm] O2 Sat by Pulse Oximetry 97 92 L 94 L 06/09/19 01:00 06/09/19 02:00 06/09/19 03:00 Temperature Pulse Rate 78 80 81 Pulse Rate [Right Brachial] Respiratory Rate 27 H 27 H 16 Blood Pressure 144/68 144/69 144/66 Blood Pressure [Left Arm] O2 Sat by Pulse Oximetry 92 L 93 L 92 L 06/09/19 03:21 06/09/19 04:00 06/09/19 04:21 Temperature Pulse Rate 82 Pulse Rate [Right Brachial] Respiratory Rate 23 21 19 Blood Pressure 135/62 Blood Pressure [Left Arm] O2 Sat by Pulse Oximetry 97 06/09/19 05:00 06/09/19 06:00 06/09/19 07:00 Temperature 98.4 F Pulse Rate 82 84 80 Pulse Rate [Right Brachial] Respiratory Rate 24 26 H 16 Blood Pressure 128/80 131/75 157/73 Blood Pressure [Left Arm] O2 Sat by Pulse Oximetry 94 L 95 94 L 06/09/19 07:15 06/09/19 07:45 06/09/19 08:18 Temperature Pulse Rate 79 80 Pulse Rate [Right Brachial] Respiratory Rate 15 16 Blood Pressure Blood Pressure [Left Arm] O2 Sat by Pulse Oximetry 96 95 92 L 06/09/19 08:20 06/09/19 08:22 06/09/19 09:00 Temperature 98.2 F Pulse Rate 88 82 85 Pulse Rate [Right Brachial] Respiratory Rate 12 19 Blood Pressure 131/104 150/76 Blood Pressure [Left Arm] O2 Sat by Pulse Oximetry 97 97 97 06/09/19 10:00 06/09/19 10:48 06/09/19 11:48 Temperature Pulse Rate 81 Pulse Rate [Right Brachial] Respiratory Rate 17 18 18 Blood Pressure 141/65 Blood Pressure [Left Arm] O2 Sat by Pulse Oximetry 100 06/09/19 12:40 06/09/19 13:00 06/09/19 14:00 Temperature Pulse Rate 87 84 88 Pulse Rate [Right Brachial] Respiratory Rate 23 20 Blood Pressure 131/58 148/67 Blood Pressure [Left Arm] O2 Sat by Pulse Oximetry 97 95 93 L 06/09/19 15:00 06/09/19 16:00 06/09/19 16:02 Temperature 98.7 F Pulse Rate 90 Pulse Rate [Right Brachial] Respiratory Rate 22 22 18 Blood Pressure 141/67 126/57 Blood Pressure [Left Arm] O2 Sat by Pulse Oximetry 93 L 95 06/09/19 17:00 06/09/19 17:02 06/09/19 17:21 Temperature Pulse Rate 88 Pulse Rate [Right Brachial] Respiratory Rate 20 18 Blood Pressure 112/83 Blood Pressure [Left Arm] O2 Sat by Pulse Oximetry 95 98 06/09/19 18:00 06/09/19 19:00 06/09/19 20:00 Temperature 98.6 F Pulse Rate 96 H 96 H 93 H Pulse Rate [Right Brachial] Respiratory Rate 15 32 H 23 Blood Pressure 110/54 110/56 114/59 Blood Pressure [Left Arm] O2 Sat by Pulse Oximetry 98 97 94 L 06/09/19 20:10 06/09/19 20:44 06/09/19 21:00 Temperature Pulse Rate 94 H 97 H Pulse Rate [Right Brachial] Respiratory Rate 26 H 30 H Blood Pressure 135/63 Blood Pressure [Left Arm] O2 Sat by Pulse Oximetry 96 98 06/09/19 21:44 06/09/19 22:00 06/09/19 23:00 Temperature 98.3 F Pulse Rate 89 92 H Pulse Rate [Right Brachial] Respiratory Rate 17 16 18 Blood Pressure 145/56 Blood Pressure [Left Arm] O2 Sat by Pulse Oximetry 96 95 06/09/19 23:01 06/10/19 00:00 06/10/19 00:01 Temperature Pulse Rate 92 H 96 H 95 H Pulse Rate [Right Brachial] Respiratory Rate 21 28 H 31 H Blood Pressure 170/70 126/59 Blood Pressure [Left Arm] O2 Sat by Pulse Oximetry 95 94 L 95 06/10/19 00:35 06/10/19 01:00 06/10/19 01:35 Temperature Pulse Rate 86 Pulse Rate [Right Brachial] Respiratory Rate 22 47 H 18 Blood Pressure 141/73 Blood Pressure [Left Arm] O2 Sat by Pulse Oximetry 96 06/10/19 02:00 06/10/19 03:00 06/10/19 04:00 Temperature 97.4 F L Pulse Rate 86 80 80 Pulse Rate [Right Brachial] Respiratory Rate 21 25 H 24 Blood Pressure 135/70 136/64 153/70 Blood Pressure [Left Arm] O2 Sat by Pulse Oximetry 94 L 95 95 06/10/19 05:00 06/10/19 05:01 06/10/19 06:00 Temperature Pulse Rate 77 78 79 Pulse Rate [Right Brachial] Respiratory Rate 16 19 15 Blood Pressure 141/64 153/72 Blood Pressure [Left Arm] O2 Sat by Pulse Oximetry 94 L 96 94 L 06/10/19 07:00 06/10/19 08:00 02/17/20 08:43 Temperature 98.3 F Pulse Rate 77 84 Pulse Rate [Right Brachial] Respiratory Rate 15 15 20 Blood Pressure 158/76 152/70 Blood Pressure [Left Arm] O2 Sat by Pulse Oximetry 94 L 94 L 06/10/19 08:48 06/10/19 09:00 06/10/19 09:43 Temperature Pulse Rate 85 87 Pulse Rate [Right Brachial] Respiratory Rate 15 20 Blood Pressure 163/74 Blood Pressure [Left Arm] O2 Sat by Pulse Oximetry 97 99 06/10/19 10:00 06/10/19 11:47 06/10/19 12:00 Temperature 98.3 F Pulse Rate 90 87 86 Pulse Rate [Right Brachial] Respiratory Rate 20 23 24 Blood Pressure 136/63 141/71 131/62 Blood Pressure [Left Arm] O2 Sat by Pulse Oximetry 96 94 L 92 L 06/10/19 12:36 06/10/19 13:00 06/10/19 14:00 Temperature Pulse Rate 83 86 99 H Pulse Rate [Right Brachial] Respiratory Rate 22 24 Blood Pressure 141/73 150/69 Blood Pressure [Left Arm] O2 Sat by Pulse Oximetry 96 96 93 L 06/10/19 14:07 06/10/19 15:00 06/10/19 15:07 Temperature Pulse Rate 94 H Pulse Rate [Right Brachial] Respiratory Rate 22 17 20 Blood Pressure 146/69 Blood Pressure [Left Arm] O2 Sat by Pulse Oximetry 95 06/10/19 16:00 06/10/19 16:57 06/10/19 17:00 Temperature Pulse Rate 93 H 91 H 88 Pulse Rate [Right Brachial] Respiratory Rate 22 22 Blood Pressure 146/70 149/72 Blood Pressure [Left Arm] O2 Sat by Pulse Oximetry 94 L 976 H 99 06/10/19 18:00 06/10/19 19:00 06/10/19 20:00 Temperature 97.5 F L Pulse Rate 96 H 98 H 86 Pulse Rate [Right Brachial] Respiratory Rate 18 17 18 Blood Pressure 137/64 141/63 137/64 Blood Pressure [Left Arm] O2 Sat by Pulse Oximetry 96 95 99 06/10/19 20:35 06/10/19 21:00 06/10/19 21:20 Temperature Pulse Rate 86 90 Pulse Rate [Right Brachial] Respiratory Rate 18 20 Blood Pressure 146/65 Blood Pressure [Left Arm] O2 Sat by Pulse Oximetry 98 96 06/10/19 22:00 06/10/19 22:20 06/10/19 23:00 Temperature Pulse Rate 91 H 78 Pulse Rate [Right Brachial] Respiratory Rate 17 20 18 Blood Pressure 135/63 154/75 Blood Pressure [Left Arm] O2 Sat by Pulse Oximetry 96 98 06/11/19 00:00 06/11/19 01:00 06/11/19 02:00 Temperature 97.5 F L Pulse Rate 80 80 73 Pulse Rate [Right Brachial] Respiratory Rate 18 19 18 Blood Pressure 153/68 160/69 151/58 Blood Pressure [Left Arm] O2 Sat by Pulse Oximetry 98 98 97 06/11/19 03:00 06/11/19 04:00 06/11/19 05:00 Temperature 97.5 F L Pulse Rate 72 67 71 Pulse Rate [Right Brachial] Respiratory Rate 18 20 20 Blood Pressure 155/67 141/63 153/72 Blood Pressure [Left Arm] O2 Sat by Pulse Oximetry 96 96 97 06/11/19 06:00 Temperature Pulse Rate 73 Pulse Rate [Right Brachial] Respiratory Rate 20 Blood Pressure 158/68 Blood Pressure [Left Arm] O2 Sat by Pulse Oximetry 95 Labs: Laboratory Last Values WBC 16.0 X10^3/uL (3.6-10.0) H 06/10/19 05:07 RBC 3.67 X10^6/uL (3.5-5.4) 06/10/19 05:07 Hgb 10.0 g/dL (12.0-16.0) L 06/10/19 05:07 Hct 30.7 % (36.0-47.0) L 06/10/19 05:07 MCV 83.6 fL (80.0-100.0) 06/10/19 05:07 MCH 27.1 pg (27.0-34.0) 06/10/19 05:07 MCHC 32.4 g/dL (33.0-35.0) L 06/10/19 05:07 RDW 16.6 % (11.6-16.5) H 06/10/19 05:07 Plt Count 226 X10^3/uL (150.0-450.0) 06/10/19 05:07 Plt Count Comment Adequate (ADEQUATE) 06/10/19 05:07 MPV 9.2 fL (7.4-11.0) 06/10/19 05:07 Neut % (Auto) 90.9 % (42.0-75.0) H 06/10/19 05:07 Lymph % (Auto) 4.5 % (21.0-51.0) L 06/10/19 05:07 Daniels % (Auto) 4.5 % (0.0-13.0) 06/10/19 05:07 Eos % (Auto) 0.0 % (0.9-2.9) L 06/10/19 05:07 Baso % (Auto) 0.1 % (0.2-1.0) L 06/10/19 05:07 Neut # (Auto) 14.6 x10^3/uL (2.2-4.8) H 06/10/19 05:07 Lymph # (Auto) 0.7 X10^3/uL (1.3-2.9) L 06/10/19 05:07 Daniels # (Auto) 0.7 x10^3/uL (0.3-0.8) 06/10/19 05:07 Eos # (Auto) 0.0 x10^3/uL (0.0-0.2) 06/10/19 05:07 Baso # (Auto) 0.0 X10^3/uL (0.0-0.1) 06/10/19 05:07 Absolute Nucleated RBC 0.0 /100WBC 06/10/19 05:07 Total Counted 100 06/10/19 05:07 Neutrophils % (Manual) 90 % (39-76) H 06/10/19 05:07 Band Neutrophils % 3 % (0-10) 06/05/19 15:20 Lymphocytes % (Manual) 6 % (13-43) L 06/10/19 05:07 Monocytes % (Manual) 4 % (4-9) 06/10/19 05:07 Eosinophils % (Manual) 1 % (0-6) 06/05/19 15:20 Plt Morphology Comment Normal (NORMAL) 06/10/19 05:07 RBC Morphology Normal (NORMAL) 06/10/19 05:07 Hypochromasia Slight A 06/05/19 15:20 Sodium 140 mmol/L (136-145) 06/10/19 05:07 Corrected Sodium 141 mmol/L (136-145) 06/10/19 05:07 Potassium 4.5 mmol/L (3.5-5.1) 06/10/19 05:07 Chloride 105 mmol/L (98-107) 06/10/19 05:07 Carbon Dioxide 31.7 mmol/L (21-32) 06/10/19 05:07 BUN 13 mg/dL (7-18) 06/10/19 05:07 Creatinine 0.68 mg/dL (0.55-1.02) 06/10/19 05:07 Est GFR (MDRD) Af Amer > 60 (>60) 06/10/19 05:07 Est GFR (MDRD) Non-Af > 60 (>60) 06/10/19 05:07 Glucose 138 mg/dL (65-99) H 06/10/19 05:07 Lactic Acid 1.2 mmol/L (0.4-2.0) 06/05/19 18:17 Calcium 9.1 mg/dL (8.5-10.1) 06/10/19 05:07 Corrected Calcium 9.3 mg/dL (8.5-10.1) 06/06/19 04:28 Magnesium 1.9 mg/dL (1.7-2.9) 06/09/19 05:07 Total Bilirubin 0.30 mg/dL (0.2-1.0) 06/06/19 04:28 AST 13 Units/L (15-37) L 06/06/19 04:28 ALT 14 Units/L (12-78) 06/06/19 04:28 Alkaline Phosphatase 75 Units/L (46-116) 06/06/19 04:28 Creatine Kinase 90 Units/L (26-192) 06/05/19 15:20 CK-MB (CK-2) < 1.0 ng/mL (0-4.0) 06/05/19 15:20 CK/CKMB % Calc 1.1 % (<4) 06/05/19 15:20 Troponin I < 0.02 ng/mL (0-1.5) 06/05/19 15:20 Total Protein 6.1 g/dL (6.4-8.2) L 06/06/19 04:28 Albumin 2.7 g/dL (3.4-5.0) L 06/06/19 04:28 Globulin 3.4 g/dL (2.5-4.5) 06/06/19 04:28 Albumin/Globulin Ratio 0.8 Ratio (1.1-2.1) L 06/06/19 04:28 Specimen Type Clean catch urine 06/05/19 18:04 Urine Color Pale yellow (YELLOW) 06/05/19 18:04 Urine Appearance Clear (CLEAR) 06/05/19 18:04 Urine pH 7.0 (5.0 - 8.0) 06/05/19 18:04 Ur Specific [place] 1.005 (1.000-1.030) 06/05/19 18:04 Urine Protein 1+ (NEGATIVE) 06/05/19 18:04 Urine Glucose (UA) Negative (NEGATIVE) 06/05/19 18:04 Urine Ketones Negative (NEGATIVE) 06/05/19 18:04 Urine Occult Blood Negative (NEGATIVE) 06/05/19 18:04 Urine Nitrite Negative (NEGATIVE) 06/05/19 18:04 Urine Bilirubin Negative (NEGATIVE) 06/05/19 18:04 Urine Urobilinogen Normal (NORMAL) 06/05/19 18:04 Ur Leukocyte Esterase Negative (NEGATIVE) 06/05/19 18:04 Urine RBC None seen /HPF (0-3) 06/05/19 18:04 Urine WBC 0-2 /HPF (0-5) 06/05/19 18:04 Ur Squamous Epith Cells Rare /HPF (NEGATIVE) 06/05/19 18:04 Ur Renal Epithelial Cell Rare /HPF (NEGATIVE) 06/05/19 18:04 Amorphous Sediment Trace /HPF (NEGATIVE) 06/05/19 18:04 Urine Bacteria Negative /HPF (NEGATIVE) 06/05/19 18:04 Ur Culture Indicated? No/not indicated 06/05/19 18:04 Reason For Visit: BIBASILAR AND RUL PNEUMONIA Discharge Date Discharge Date: 06/11/19 Discharge Diagnosis All Active Problems (Updated 06/12/19 @ 15:06 by Marilee Kunz) Syncope (Acute) Hypotension (Acute) Atrial fibrillation (Chronic) CVA (cerebral vascular accident) (Chronic) Pneumonia (Acute) AMS (altered mental status) (Acute) Weakness generalized (Acute) Left-sided weakness (Chronic) Lower back pain (Chronic) Plan of Treatment: Continue with present treatment and follow up plan. Pt is to keep follow up appointment as instructed and take medications as ordered. Discharge Medications Discharge Medications: Sulfa (Sulfonamide Antibiotics) [SULFA] Allergy (Verified 06/05/19 14:48) CONTINUE taking the following medications Eliquis 5 mg PO DAILY 06/05/19 [History] atorvastatin 80 mg PO HS 06/05/19 [History] desloratadine 5 mg PO DAILY 06/05/19 [History] gabapentin 800 mg PO HS 06/05/19 [History] montelukast 10 mg PO DAILY 06/05/19 [History] pantoprazole 40 mg PO DAILY 06/05/19 [History] ranitidine HCl 150 mg PO BID 06/05/19 [History] New Prescriptions Lactobacillus acidophilus [Acidophilus] 2,000 mmu cells PO BID 10 Days #20 cap 06/11/19 [Rx] albuterol sulfate [ProAir HFA] 2 puff IN Q6H PRN #6.7 g 06/11/19 [Rx] amoxicillin-pot clavulanate 1 ea PO Q12H 6 Days #12 tab 06/11/19 [Rx] ipratropium-albuterol 3 ml NEB QIDRESP 30 Days #30 vial 06/11/19 [Rx] nebulizers #1 ea 06/11/19 [Rx] prednisone See Rx Instructions .ROUTE .COMPLEX #21 ea 06/11/19 [Rx] tramadol 50 mg PO BID PRN 7 Days #14 tab MDD 100 mg 06/11/19 [Rx] Follow up and Referral Follow Up: 1 Week (PCP ) Discharge Disposition Discharge Disposition: Home
[2019-06-11] MEDS: MILK OF MAGNESIA PO SCH ×2 (09:04→09:12)
[2019-06-11] MEDS: ROBITUSSIN DM PO SCH ×2 (09:04→12:21)
[2019-06-11] MEDS: PriLOSEC PO SCH (09:05)
[2019-06-11] MEDS: VSL#3 PO SCH (09:05)
[2019-06-11] MEDS: PROTONIX TAB 40 MG PO SCH (09:05)
[2019-06-11] MEDS: ELIQUIS PO SCH (09:06)
[2019-06-11] MEDS: PREDNISONE TAB 20 MG PO SCH (09:06)
[2019-06-11] MEDS: SINGULAIR TAB 10 MG PO SCH (09:06)
[2019-06-11] MEDS: CLARITIN PO SCH (09:06)
[2019-06-11] MEDS: PROzac PO SCH (09:06)
[2019-06-11] MEDS: PULMICORT NEB TX 0.5 MG NEB SCH (09:45)
[2019-06-11] MEDS: DUONEB 0.5 MG/3 MG (3 mL) NEB SCH ×2 (09:45→13:00)
[2019-06-11] MEDS: ULTRAM PO PRN (12:22)
[2019-06-11 14:44] VITALS: BP 135/72
== END 2019-06-11 15:09 | disposition home or self-care (01) | DRG 195 ==
LOC: ICU 14:35 → ER 14:35 → OBSVTOIN 19:20 → ICU 20:19
PROVIDERS: ADMIT Internal Medicine; ATTEND Internal Medicine
DX: I48.91 Unspecified atrial fibrillation; W18.39XA Other fall on same level, initial encounter; Z86.73 Personal history of transient ischemic attack (TIA), and cerebral infarction without residual deficits; R55 Syncope and collapse; R53.1 Weakness; R26.89 Other abnormalities of gait and mobility; J18.0 Bronchopneumonia, unspecified organism; E86.1 Hypovolemia; R40.4 Transient alteration of awareness; I95.89 Other hypotension; K44.9 Diaphragmatic hernia without obstruction or gangrene; M54.5 Low back pain
CPT/HCPCS: 36415; 70450; 71010; 71045; 71260; 80048; 80053; 81001; 82550; 82553; 83605; 83735; 84484; 85025; 87040; 87070; 87205; 93005; 94640; 94760; 96365; 96374; 97112; 97161; 97166; 99284; A4216; A4222; J0696; J2920; J3475; J3490; J7050; J7512; J7620; J7626

== ENCOUNTER 2019-10-15 12:12 | Inpatient (IN) ==
[2019-10-15 12:20] VITALS: BMI 22.7
--- NOTE | 2019-10-15 12:39 | DR.FEVERAD ---
HPI Time seen Time Seen by Provider: 10/15/19 12:24 PCP Primary Care Physician: JOAQUINA Complaints/Symptoms Chief Complaint:: PT C/O SOB, FEVER (103.0), COUGHING. PT STATES SHE HAS HAD RECURRENT PNUEMONIA SINCE . PT STATES SHE HAS BEEN TAKING AUGMENTIN 875MG PO BID X5 DAYS. PT STATES SHE HAS BEEN HAVING FEVER WITH THE HIGHEST OF 103. COVID-19 Coronavirus risk:travel/contact w/high risk person: Yes Has patient experienced Coronavirus symptoms: Yes Coronavirus symptoms experienced: Fever, Coughing and Shortness of Breath Nurses notes reviewed Nurses Notes Review: Yes Source History Provided: Patient Mode of Arrival Mode of Arrival: Ambulatory Timing Onset of Chief Complaint: 10/10/19 Came on: Gradually Duration Duration: Intermittent How lon Duration: Days Severity Fever Severity/Quality: greater than 102 F Context Recent: Antibiotic (augmentin) Symptoms: Fever, Cough and SOB History of: Chronic Illness (CVA, throid pneumonia recurrent) Modifying factors Modifying factors: Ibuprofen Associated signs and symptoms Associated signs and symptoms: Weakness PMH PMH Past Medical History: Yes Past Medical History: Anxiety, Arthritis, CVA, Depression, Hypertension, Hypothyroidism and Seizures Past Surgical History: Yes Surgical History: Appendectomy and Hysterectomy Family History History of Family Medical Conditions: Yes Family Medical History: Cancer, [place], Coronary Artery Disease, Heart Failure and Hypertension Social History Does any household member use tobacco: No Alcohol Use: None Do you use any recreational Drugs:: No Travel Risk Coronavirus risk:travel/contact w/high risk person: Yes Has patient experienced Coronavirus symptoms: Yes Coronavirus symptoms experienced: Fever, Coughing and Shortness of Breath Infectious screening In the last 2 months have you had wt loss of >10#?: NO Have you had fever, night sweats or hemotysis?: Yes Have you traveled outside the country in the last 6 months?: No Isolation: Droplet ROS Review of Systems Constitutional: Fever and Weakness Eyes: No Symptoms Reported ENTM: No Symptoms Reported Respiratoy: Non-Productive Cough and Short of Breath Cardiovascular: No Symptoms Reported Gastrointestinal/Abdominal: No Symptoms Reported Genitourinary: No Symptoms Reported Neurological: No Symptoms Reported Musculoskeletal: No Symptoms Reported Integumentary: No Symptoms Reported Hematologic/Lymphatic: No Symptoms Reported Endocrine: No Symptoms Reported Psychiatric: Anxiety and Depression All Other Systems: Reviewed and Negative PE Vital Signs Vitals: Temperature 99.4 F Pulse Rate [Left Radial] 89 Pulse Rate 92 Respiratory Rate 19 Blood Pressure [Left Arm] 126/66 Blood Pressure 133/63 O2 Sat by Pulse Oximetry 96 General Limitations: No Limitations General Appearance: Alert and In No Apparent Distress Head Head Exam: Normal Inspection, Atraumatic and Normocephalic Eyes Eye exam: Normal Appearance and EOMI ENT ENT Exam: Normal Exam and Normal Oropharynx External Ear Exam: Normal External Inspection Nose Exam: Normal Nose Exam Nasal Speculum Exam: Bilateral: Normal Mouth Exam: Normal Inspection Teeth Exam: Normal Inspection Throat Exam: Normal Inspection Neck Neck Exam: Normal Inspection Respiratory Respiratory Exam: Normal Lung Sounds Bilat Respiratory Exam: Bilateral: Clear to Auscultation Cardiovascular Cardiovascular Exam: Regular Rate Abdominal Exam Abdominal Exam: Normal Inspection, Normal Bowel Sounds and Soft; negative Tenderness and Guarding Extremities Extremities Exam: Normal Inspection and Full ROM Back Back Exam: Normal Inspection and Full ROM Neurologic Neurological Exam: Alert, Oriented X3 and CN II-XII Intact Psychiatric Psychiatric Exam: Normal Affect and Anxious Skin Skin Exam: Normal Color Distribution: Generalized COURSE Treatment Treatment: 1515: Case discussed with Dr. Joaquina mendoza hypoxia ROR Labs Reviewed Result Diagrams: 10/15/19 12:58 10/15/19 12:58 Laboratory: WBC 6.1 X10^3/uL (3.6-10.0) 10/15/19 12:58 RBC 4.56 X10^6/uL (3.5-5.4) 10/15/19 12:58 Hgb 12.5 g/dL (12.0-16.0) 10/15/19 12:58 Hct 38.6 % (36.0-47.0) 10/15/19 12:58 MCV 84.7 fL (80.0-100.0) 10/15/19 12:58 MCH 27.4 pg (27.0-34.0) 10/15/19 12:58 MCHC 32.4 g/dL (33.0-35.0) L 10/15/19 12:58 RDW 17.1 % (11.6-16.5) H 10/15/19 12:58 Plt Count 133 X10^3/uL (150.0-450.0) L 10/15/19 12:58 MPV 9.5 fL (7.4-11.0) 10/15/19 12:58 Neut % (Auto) 84.7 % (42.0-75.0) H 10/15/19 12:58 Lymph % (Auto) 5.8 % (21.0-51.0) L 10/15/19 12:58 Hill % (Auto) 9.2 % (0.0-13.0) 10/15/19 12:58 Eos % (Auto) 0.1 % (0.9-2.9) L 10/15/19 12:58 Baso % (Auto) 0.2 % (0.2-1.0) 10/15/19 12:58 Neut # (Auto) 5.2 x10^3/uL (2.2-4.8) H 10/15/19 12:58 Lymph # (Auto) 0.4 X10^3/uL (1.3-2.9) L 10/15/19 12:58 Hill # (Auto) 0.6 x10^3/uL (0.3-0.8) 10/15/19 12:58 Eos # (Auto) 0.0 x10^3/uL (0.0-0.2) 10/15/19 12:58 Baso # (Auto) 0.0 X10^3/uL (0.0-0.1) 10/15/19 12:58 Absolute Nucleated RBC 0.0 /100WBC 10/15/19 12:58 Sample Site Rra 10/15/19 12:50 ABG pH 7.430 (7.35-7.45) 10/15/19 12:50 ABG pCO2 43.0 mmHg (35.0-45.0) 10/15/19 12:50 ABG pO2 63.0 mmHg (80.0-100.0) L 10/15/19 12:50 ABG HCO3 28.5 mmol/L (22-26) H 10/15/19 12:50 ABG O2 Saturation 92.0 % (90-100) 10/15/19 12:50 ABG Base Excess 3.7 mmol/L (-2.0-2.0) H 10/15/19 12:50 Reagan Test Pos 10/15/19 12:50 A-a Gradient 33.0 mmHg 10/15/19 12:50 FiO2 21.0 10/15/19 12:50 Blood Gas Comments Pt negro well eb 10/15/19 12:50 Sodium 138 mmol/L (136-145) 10/15/19 12:58 Corrected Sodium TNP 10/15/19 12:58 Potassium 4.5 mmol/L (3.5-5.1) 10/15/19 12:58 Chloride 100 mmol/L (98-107) 10/15/19 12:58 Carbon Dioxide 30.0 mmol/L (21-32) 10/15/19 12:58 BUN 9 mg/dL (7-18) 10/15/19 12:58 Creatinine 0.96 mg/dL (0.55-1.02) 10/15/19 12:58 Est GFR (MDRD) Af Amer > 60 (>60) 10/15/19 12:58 Est GFR (MDRD) Non-Af > 60 (>60) 10/15/19 12:58 Glucose 94 mg/dL (65-99) 10/15/19 12:58 Lactic Acid 0.9 mmol/L (0.4-2.0) 10/15/19 12:58 Calcium 9.0 mg/dL (8.5-10.1) 10/15/19 12:58 Corrected Calcium TNP 10/15/19 12:58 Total Bilirubin 0.20 mg/dL (0.2-1.0) 10/15/19 12:58 AST 19 Units/L (15-37) 10/15/19 12:58 ALT 22 Units/L (12-78) 10/15/19 12:58 Alkaline Phosphatase 105 Units/L (46-116) 10/15/19 12:58 Total Protein 7.6 g/dL (6.4-8.2) 10/15/19 12:58 Albumin 3.9 g/dL (3.4-5.0) 10/15/19 12:58 Globulin 3.7 g/dL (2.5-4.5) 10/15/19 12:58 Albumin/Globulin Ratio 1.1 Ratio (1.1-2.1) 10/15/19 12:58 Influenza Type A Ag Negative-presumptive (NEGATIVE) 10/15/19 13:28 Influenza Type B Ag Negative-presumptive (NEGATIVE) 10/15/19 13:28 S. pyogenes (TEM-PCR) Not detected (NOT DETECT) 10/15/19 13:28 XRAY XRAY Interpreted by: Radiologist X-ray Results: CHEST: No acute disease Opioid Opioid Risk Tool Age (Marquez box if 16-45): No History of Preadolescent Sexual Abuse: No Total: 0 Total Score Risk Category: Low Risk Copyright: Isaac MICHAEL predicting aberrant behaviors Diagnosis Discharge Problem: COVID-19, Hypoxia Instructions Forms: Excuse From Work Precautions for COVID19 Patient Portal Social Distancing
[2019-10-15] MEDS ORDERED: NS 500 ML IV 1,000 ML IV ONE (12:41)
[2019-10-15 12:53] LABS: ABG BASE EXCESS 3.7 mmol/L (-2.0-2.0); ABG HCO3 28.5 mmol/L (22-26)
[2019-10-15 12:54] LABS: ABG ALLEN TEST POS
[2019-10-15] MEDS ORDERED: MOTRIN TAB 800 MG PO ONE (12:54)
[2019-10-15] MEDS ORDERED: NS 1000 ML 1,000 ML ONE (12:54)
[2019-10-15] MEDS: MOTRIN TAB 800 MG PO PRN (13:07)
[2019-10-15 13:24] LABS: BASOPHILS % (AUTO) 0.2 % (0.2-1.0); EOSINOPHILS % (AUTO) 0.1 % (0.9-2.9); HEMATOCRIT 38.6 % (36.0-47.0); HEMOGLOBIN 12.5 g/dL (12.0-16.0); LYMPHOCYTES # (AUTO) 0.4 X10^3/uL (1.3-2.9); LYMPHOCYTES % (AUTO) 5.8 % (21.0-51.0); MEAN CORPUSCULAR HEMOGLOBIN 27.4 pg (27.0-34.0); MEAN CORPUSCULAR HGB CONC 32.4 g/dL (33.0-35.0); MEAN CORPUSCULAR VOLUME 84.7 fL (80.0-100.0); MEAN PLATELET VOLUME 9.5 fL (7.4-11.0); MONOCYTES # (AUTO) 0.6 x10^3/uL (0.3-0.8); MONOCYTES % (AUTO) 9.2 % (0.0-13.0); NEUTROPHILS # (AUTO) 5.2 x10^3/uL (2.2-4.8); NEUTROPHILS % (AUTO) 84.7 % (42.0-75.0); PLATELET COUNT 133 X10^3/uL (150.0-450.0); RED BLOOD COUNT 4.56 X10^6/uL (3.5-5.4); RED CELL DISTRIBUTION WIDTH 17.1 % (11.6-16.5); WHITE BLOOD COUNT 6.1 X10^3/uL (3.6-10.0)
[2019-10-15 13:30] LABS: ALANINE AMINOTRANSFERASE 22 Units/L (12-78); ALBUMIN 3.9 g/dL (3.4-5.0); ALKALINE PHOSPHATASE 105 Units/L (46-116); ASPARTATE AMINO TRANSFERASE 19 Units/L (15-37); BLOOD UREA NITROGEN 9 mg/dL (7-18); CHLORIDE 100 mmol/L (98-107); CREATININE 0.96 mg/dL (0.55-1.02); SODIUM 138 mmol/L (136-145); TOTAL PROTEIN 7.6 g/dL (6.4-8.2); eGFR NON BLACK RACES > 60 (>60)
[2019-10-15 13:33] LABS: LACTIC ACID 0.9 mmol/L (0.4-2.0)
--- NOTE | 2019-10-15 13:34 | RAD ---
HISTORYFEVER, COUGH, JX OF RECENT PNASTUDYPortable AP chestCOMPARISONMay 2019FINDINGSPreviously demonstrated left lower lobe infiltrate has cleared. The heart and mediastinum are unremarkable. There is a subcutaneous loop recorder overlying the left chest anteriorly. There is no edema or effusion.IMPRESSIONNo current evidence for active cardiopulmonary diseaseElectronically signed by: ANIBAL GONZALEZ (Oct 15, 2019 13:33:07)
[2019-10-15] MEDS ORDERED: XOPENEX 1.25 MG/3 ML NEBULE NEB SCH ×2 (17:00→18:00)
[2019-10-15] MEDS: NS 1000 ML 1,000 ML IV SCH (17:35)
[2019-10-15 21:33] LABS: BILIRUBIN,URINE NEGATIVE (NEGATIVE); BLOOD/HEMOGLOBIN,URINE NEGATIVE (NEGATIVE); GLUCOSE, URINE NEGATIVE (NEGATIVE); KETONES,URINE NEGATIVE (NEGATIVE); LEUKOCYTE ESTERASE ,URINE NEGATIVE (NEGATIVE); NITRITES,URINE NEGATIVE (NEGATIVE); PROTEIN,URINE 1+ (NEGATIVE); UROBILINOGEN,URINE NORMAL (NORMAL)
[2019-10-15 21:45] LABS: APPEARANCE,URINE CLEAR (CLEAR); COLOR,URINE YELLOW (YELLOW)
[2019-10-15 21:46] LABS: BACTERIA,URINE NEGATIVE /HPF (NEGATIVE); HYALINE CASTS, URINE RARE /LPF (NEGATIVE); RBC,URINE 0-2 /HPF (0-3); SQUAMOUS EPITHELIAL CELL,UR RARE /HPF (NEGATIVE)
[2019-10-16] MEDS ORDERED: TYLENOL 325 MG TAB PO ONE (00:03)
[2019-10-16] MEDS: TYLENOL 325 MG TAB PO PRN ×2 (00:09→09:35)
[2019-10-16] MEDS: NS 1000 ML 1,000 ML IV SCH ×3 (02:58→18:04)
[2019-10-16 06:10] LABS: BASOPHILS % (AUTO) 0.5 % (0.2-1.0); EOSINOPHILS % (AUTO) 0.1 % (0.9-2.9); HEMOGLOBIN 10.7 g/dL (12.0-16.0); LYMPHOCYTES # (AUTO) 0.7 X10^3/uL (1.3-2.9); MEAN CORPUSCULAR HEMOGLOBIN 27.6 pg (27.0-34.0); MEAN CORPUSCULAR HGB CONC 32.4 g/dL (33.0-35.0); MEAN CORPUSCULAR VOLUME 85.1 fL (80.0-100.0); MEAN PLATELET VOLUME 9.9 fL (7.4-11.0); MONOCYTES # (AUTO) 0.5 x10^3/uL (0.3-0.8); MONOCYTES % (AUTO) 12.2 % (0.0-13.0); NEUTROPHILS % (AUTO) 71.2 % (42.0-75.0); PLATELET COUNT 98 X10^3/uL (150.0-450.0); RED BLOOD COUNT 3.87 X10^6/uL (3.5-5.4); RED CELL DISTRIBUTION WIDTH 16.9 % (11.6-16.5); WHITE BLOOD COUNT 4.2 X10^3/uL (3.6-10.0)
[2019-10-16 06:21] LABS: ALANINE AMINOTRANSFERASE 21 Units/L (12-78); ALKALINE PHOSPHATASE 80 Units/L (46-116); ASPARTATE AMINO TRANSFERASE 24 Units/L (15-37); BLOOD UREA NITROGEN 11 mg/dL (7-18); CALCIUM 8.3 mg/dL (8.5-10.1); CHLORIDE 104 mmol/L (98-107); COR CA(FOR HYPOALB) 9.1 mg/dL (8.5-10.1); CREATININE 0.69 mg/dL (0.55-1.02); SODIUM 139 mmol/L (136-145); TOTAL PROTEIN 5.9 g/dL (6.4-8.2); eGFR NON BLACK RACES > 60 (>60)
[2019-10-16] MEDS ORDERED: ZITHROMAX TAB 250 MG PO ONE (08:13)
--- NOTE | 2019-10-16 08:22 | DR.H&P ---
H&P History & Physical for Day of: H&P Date: 10/16/19 Chief Complaint Chief Complaint: Fever and shortness of breath Allergies Allergies Allergy/AdvReac Type Severity Reaction Status Date / Time Sulfa (Sulfonamide Allergy Verified 06/05/19 14:48 Antibiotics) [SULFA] History of Present Illness History of Present Illness: Pt is a 68 y/o f pmhx CVA, Afib(post ablation w/ loop recorder), Hypothyroidism, Hiatal hernia, admitted after having fevers/chills, cough, and shortness of breath for the past week. She was seen in clinic almost a week ago and had a negative COVID test, was given augmentin that she was taking but reports no improvement. Labs/imaging: Wbc 4.2, Hgb 10.7, Plt 98, Na 139, K 4.1, Cr 0.69, Gluc 89, UA negative, AB.43/43/63/28/92% on RA, COVID+(10/15/19), CXR negative, BloodCx pending, CRP pending. -Pt was started on supplemental O2 of 2L, will start on Azithromycin, IV Solumedrol, Albuterol inh, IS. Pneumonia protocol, restart home medications. Continue to monitor and follow up labs/imaging. Past Medical History Past Medical History: Anxiety, Arthritis, CVA, Depression, Hypertension, Hypothyroidism and Seizures Past Surgical History Surgical History: Hysterectomy Family History Family Medical History: Cancer Social History Does patient currently use any type of tobacco product: No Have you used tobacco products in the last 12 months: No Does any household member use tobacco: No Alcohol Use: None Drug Use: None Medications Home Medications: Sulfa (Sulfonamide Antibiotics) [SULFA] Allergy (Verified 06/05/19 14:48) CONTINUE taking the following medications baclofen 10 mg PO HS 10/15/19 [History] famotidine 40 mg PO BID 10/15/19 [History] montelukast 10 mg PO DAILY 10/15/19 [History] omeprazole 40 mg PO DAILY 10/15/19 [History] Labs Result Diagrams: 10/16/19 05:50 10/16/19 05:50 Labs: Laboratory WBC 4.2 X10^3/uL (3.6-10.0) 10/16/19 05:50 RBC 3.87 X10^6/uL (3.5-5.4) 10/16/19 05:50 Hgb 10.7 g/dL (12.0-16.0) L 10/16/19 05:50 Hct 33.0 % (36.0-47.0) L 10/16/19 05:50 MCV 85.1 fL (80.0-100.0) 10/16/19 05:50 MCH 27.6 pg (27.0-34.0) 10/16/19 05:50 MCHC 32.4 g/dL (33.0-35.0) L 10/16/19 05:50 RDW 16.9 % (11.6-16.5) H 10/16/19 05:50 Plt Count 98 X10^3/uL (150.0-450.0) L 10/16/19 05:50 MPV 9.9 fL (7.4-11.0) 10/16/19 05:50 Neut % (Auto) 71.2 % (42.0-75.0) 10/16/19 05:50 Lymph % (Auto) 16.0 % (21.0-51.0) L 10/16/19 05:50 [place] % (Auto) 12.2 % (0.0-13.0) 10/16/19 05:50 Eos % (Auto) 0.1 % (0.9-2.9) L 10/16/19 05:50 Baso % (Auto) 0.5 % (0.2-1.0) 10/16/19 05:50 Neut # (Auto) 3.0 x10^3/uL (2.2-4.8) 10/16/19 05:50 Lymph # (Auto) 0.7 X10^3/uL (1.3-2.9) L 10/16/19 05:50 [place] # (Auto) 0.5 x10^3/uL (0.3-0.8) 10/16/19 05:50 Eos # (Auto) 0.0 x10^3/uL (0.0-0.2) 10/16/19 05:50 Baso # (Auto) 0.0 X10^3/uL (0.0-0.1) 10/16/19 05:50 Absolute Nucleated RBC 0.0 /100WBC 10/16/19 05:50 Sample Site Rra 10/15/19 12:50 ABG pH 7.430 (7.35-7.45) 10/15/19 12:50 ABG pCO2 43.0 mmHg (35.0-45.0) 10/15/19 12:50 ABG pO2 63.0 mmHg (80.0-100.0) L 10/15/19 12:50 ABG HCO3 28.5 mmol/L (22-26) H 10/15/19 12:50 ABG O2 Saturation 92.0 % (90-100) 10/15/19 12:50 ABG Base Excess 3.7 mmol/L (-2.0-2.0) H 10/15/19 12:50 Reagan Test Pos 10/15/19 12:50 A-a Gradient 33.0 mmHg 10/15/19 12:50 FiO2 21.0 10/15/19 12:50 Blood Gas Comments Pt negro well eb 10/15/19 12:50 Sodium 139 mmol/L (136-145) 10/16/19 05:50 Corrected Sodium TNP 10/16/19 05:50 Potassium 4.1 mmol/L (3.5-5.1) 10/16/19 05:50 Chloride 104 mmol/L (98-107) 10/16/19 05:50 Carbon Dioxide 29.0 mmol/L (21-32) 10/16/19 05:50 BUN 11 mg/dL (7-18) 10/16/19 05:50 Creatinine 0.69 mg/dL (0.55-1.02) 10/16/19 05:50 Est GFR (MDRD) Af Amer > 60 (>60) 10/16/19 05:50 Est GFR (MDRD) Non-Af > 60 (>60) 10/16/19 05:50 Glucose 89 mg/dL (65-99) 10/16/19 05:50 Lactic Acid 0.9 mmol/L (0.4-2.0) 10/15/19 12:58 Calcium 8.3 mg/dL (8.5-10.1) L 10/16/19 05:50 Corrected Calcium 9.1 mg/dL (8.5-10.1) 10/16/19 05:50 Total Bilirubin 0.20 mg/dL (0.2-1.0) 10/16/19 05:50 AST 24 Units/L (15-37) 10/16/19 05:50 ALT 21 Units/L (12-78) 10/16/19 05:50 Alkaline Phosphatase 80 Units/L (46-116) 10/16/19 05:50 Total Protein 5.9 g/dL (6.4-8.2) L 10/16/19 05:50 Albumin 3.0 g/dL (3.4-5.0) L 10/16/19 05:50 Globulin 2.9 g/dL (2.5-4.5) 10/16/19 05:50 Albumin/Globulin Ratio 1.0 Ratio (1.1-2.1) L 10/16/19 05:50 Specimen Type Clean catch urine 10/15/19 21:15 Urine Color Yellow (YELLOW) 10/15/19 21:15 Urine Appearance Clear (CLEAR) 10/15/19 21:15 Urine pH 6.0 (5.0 - 8.0) 10/15/19 21:15 Ur Specific [place] 1.025 (1.000-1.030) 10/15/19 21:15 Urine Protein 1+ (NEGATIVE) 10/15/19 21:15 Urine Glucose (UA) Negative (NEGATIVE) 10/15/19 21:15 Urine Ketones Negative (NEGATIVE) 10/15/19 21:15 Urine Occult Blood Negative (NEGATIVE) 10/15/19 21:15 Urine Nitrite Negative (NEGATIVE) 10/15/19 21:15 Urine Bilirubin Negative (NEGATIVE) 10/15/19 21:15 Urine Urobilinogen Normal (NORMAL) 10/15/19 21:15 Ur Leukocyte Esterase Negative (NEGATIVE) 10/15/19 21:15 Urine RBC 0-2 /HPF (0-3) 10/15/19 21:15 Urine WBC 0-2 /HPF (0-5) 10/15/19 21:15 Ur Squamous Epith Cells Rare /HPF (NEGATIVE) 10/15/19 21:15 Urine Bacteria Negative /HPF (NEGATIVE) 10/15/19 21:15 Hyaline Casts Rare /LPF (NEGATIVE) 10/15/19 21:15 Ur Culture Indicated? No/not indicated 10/15/19 21:15 Influenza Type A Ag Negative-presumptive (NEGATIVE) 10/15/19 13:28 Influenza Type B Ag Negative-presumptive (NEGATIVE) 10/15/19 13:28 SARS-CoV-2 (PCR) Positive (NEGATIVE) A 10/15/19 15:18 S. pyogenes (TEM-PCR) Not detected (NOT DETECT) 10/15/19 13:28 Review of Systems Constitutional: Fever, Chills and Weakness Eyes: No Symptoms Reported ENT: No Symptoms Reported Respiratory: Cough and Shortness of Breath Cardiovascular: No Symptoms Reported Gastrointestinal: No Symptoms Reported Genitourinary: No Symptoms Reported Musculoskeletal: No Symptoms Reported Skin: No Symptoms Reported Neurological: No Symptoms Reported Physical Exam Vital Signs: Temperature 100.6 F Pulse Rate [Left Radial] 89 Pulse Rate 97 Respiratory Rate 17 Blood Pressure [Left Arm] 126/66 Blood Pressure 95/74 O2 Sat by Pulse Oximetry 96 Oriented: Normal Eyes: Normal Ear: Normal Nose: Normal Throat: Normal Respiratory: Diminished Throughout Cardiovascular: Normal : Normal Auscultation: Bowel Sounds: Normal Palpation: Normal Tenderness: Normal Skin: Normal Musculoskeletal: Normal Mood Description: Calm Speech Pattern: Clear Assessment/Plan (1) Pneumonia due to COVID-19 virus: Status: Acute Plan: Pneumonia protocol (2) Hypoxia: Status: Acute Plan: Supplemental O2, Albuterol inh, IS Review H&P Reviewed: Yes Patient was examined?: Yes
[2019-10-16] MEDS: PEPCID TAB 20 MG PO SCH ×2 (09:29→20:09)
[2019-10-16] MEDS: ELIQUIS PO SCH ×2 (09:29→20:08)
[2019-10-16] MEDS: SINGULAIR TAB 10 MG PO SCH (09:29)
[2019-10-16] MEDS: SYNTHROID 88 mcg TAB PO SCH (09:29)
[2019-10-16] MEDS: PriLOSEC PO SCH (09:30)
[2019-10-16] MEDS: PROzac PO SCH (09:30)
[2019-10-16] MEDS: VENTOLIN or PROAIR HFA IN PRN (09:30)
[2019-10-16] MEDS: PROTONIX TAB 40 MG PO SCH (09:30)
[2019-10-16] MEDS: SOLU-Medrol 125 MG VIAL IVP SCH ×3 (09:30→21:16)
[2019-10-16] MEDS: CLARITIN PO SCH (09:31)
[2019-10-16] MEDS: LIPITOR TAB 40 MG PO SCH (09:31)
[2019-10-16] MEDS: KEPPRA TAB 500 MG PO SCH ×2 (09:32→20:08)
[2019-10-16] MEDS: LIBRAX PO SCH (10:11)
[2019-10-16] MEDS ORDERED: NEURONTIN CAP 400 MG PO ONE (16:23)
[2019-10-16] MEDS ORDERED: LIORESAL ONE (16:24)
[2019-10-16] MEDS: NEURONTIN CAP 400 MG PO SCH ×2 (16:46→20:09)
[2019-10-16] MEDS: LIORESAL PO SCH ×2 (16:46→20:09)
[2019-10-16] MEDS: MOTRIN TAB 800 MG PO PRN (19:13)
[2019-10-16] MEDS: RESTORIL CAP 15 MG PO PRN (23:31)
[2019-10-17 05:15] LABS: BASOPHILS % (AUTO) 0.1 % (0.2-1.0); EOSINOPHILS % (AUTO) 0.1 % (0.9-2.9); HEMATOCRIT 34.5 % (36.0-47.0); LYMPHOCYTES # (AUTO) 0.4 X10^3/uL (1.3-2.9); LYMPHOCYTES % (AUTO) 11.1 % (21.0-51.0); MEAN CORPUSCULAR HEMOGLOBIN 27.4 pg (27.0-34.0); MEAN CORPUSCULAR VOLUME 85.6 fL (80.0-100.0); MEAN PLATELET VOLUME 10.3 fL (7.4-11.0); MONOCYTES # (AUTO) 0.3 x10^3/uL (0.3-0.8); MONOCYTES % (AUTO) 6.9 % (0.0-13.0); NEUTROPHILS % (AUTO) 81.8 % (42.0-75.0); PLATELET COUNT 87 X10^3/uL (150.0-450.0); RED BLOOD COUNT 4.03 X10^6/uL (3.5-5.4); RED CELL DISTRIBUTION WIDTH 17.1 % (11.6-16.5); WHITE BLOOD COUNT 3.7 X10^3/uL (3.6-10.0)
[2019-10-17 05:35] LABS: ALANINE AMINOTRANSFERASE 23 Units/L (12-78); ALBUMIN 3.1 g/dL (3.4-5.0); ALKALINE PHOSPHATASE 81 Units/L (46-116); ASPARTATE AMINO TRANSFERASE 25 Units/L (15-37); BLOOD UREA NITROGEN 12 mg/dL (7-18); CALCIUM 8.9 mg/dL (8.5-10.1); CARBON DIOXIDE 27.4 mmol/L (21-32); CHLORIDE 105 mmol/L (98-107); COR CA(FOR HYPOALB) 9.6 mg/dL (8.5-10.1); COR NA(FOR HYPERGLY) 141 mmol/L (136-145); CREATININE 0.53 mg/dL (0.55-1.02); SODIUM 140 mmol/L (136-145); TOTAL PROTEIN 6.3 g/dL (6.4-8.2); eGFR NON BLACK RACES > 60 (>60)
[2019-10-17] MEDS: SOLU-Medrol 125 MG VIAL IVP SCH (05:35)
--- NOTE | 2019-10-17 06:48 | RAD ---
HISTORYHypoxiaSTUDYChest AP [id number] heart is within normal limits in size. The kitty are normal. The lungs are free of acute infiltrates. No pleural effusions are identified. Bony thorax is unremarkable.IMPRESSIONNo significant abnormality identifiedElectronically signed by: SEB RAYMOND (Oct 17, 2019 06:46:22)
--- NOTE | 2019-10-17 08:14 | PCM.PROG ---
Progress Note Progress Note for Day of Date of Exam: 10/17/19 Subjective Subjective: Pt is a 68 y/o f pmhx CVA, Afib(post ablation w/ loop recorder), Hypothyroidism, Hiatal hernia, admitted for COVID19 pneumonia(positive on 10/14) and hypoxia. She is sitting up in bed this morning with some improvement. Labs/imaging: Wbc 3.7, Hgb 11, Plt 87, Na 140, K 4.1, Cr 0.53, Gluc 127, CRP 15.7, CXR negative, BloodCx pending. Pt treatments include supplemental O2@2L nc, Azithromycin, IV Solumedrol>will change to po prednisone, Albuterol inh, IS. Pneumonia protocol. Plan to start weaning supplemental O2, get ambulatory O2. Continue to monitor and follow up labs in the morning. Past Medical Family Social History Past Med/Fam/Surg Hx: No changes since H&P Allergies: Allergies Sulfa (Sulfonamide Antibiotics) [SULFA] Allergy (Verified 06/05/19 14:48) Review of Systems ROS: No change since H&P Vital Signs and I&O's Vital Signs: Temperature 97.7 F Pulse Rate [Left Radial] 89 Pulse Rate 61 Respiratory Rate 18 Blood Pressure [Left Arm] 126/66 Blood Pressure 131/60 O2 Sat by Pulse Oximetry 99 Intake and Output: Intake & Output 10/14/19 10/15/19 10/16/19 10/17/19 23:59 23:59 23:59 23:59 Intake Total 860 / 860 2090 / 2090 960 / 960 Output Total 100 / 100 Balance 860 / 860 1990 960 / 960 Physical Exam Oriented: Normal Eyes: Normal Ear: Normal Nose: Normal Throat: Normal Respiratory: Diminished Cardiovascular: Normal : Normal Auscultation: Bowel Sounds: Normal Tenderness: Normal Skin: Normal Musculoskeletal: Normal Mood Description: Calm Speech Pattern: Clear Laboratory and Diagnostics Result Diagrams: 10/17/19 04:04 10/17/19 04:04 Labs: Laboratory WBC 3.7 X10^3/uL (3.6-10.0) 10/17/19 04:04 RBC 4.03 X10^6/uL (3.5-5.4) 10/17/19 04:04 Hgb 11.0 g/dL (12.0-16.0) L 10/17/19 04:04 Hct 34.5 % (36.0-47.0) L 10/17/19 04:04 MCV 85.6 fL (80.0-100.0) 10/17/19 04:04 MCH 27.4 pg (27.0-34.0) 10/17/19 04:04 MCHC 32.0 g/dL (33.0-35.0) L 10/17/19 04:04 RDW 17.1 % (11.6-16.5) H 10/17/19 04:04 Plt Count 87 X10^3/uL (150.0-450.0) L 10/17/19 04:04 MPV 10.3 fL (7.4-11.0) 10/17/19 04:04 Neut % (Auto) 81.8 % (42.0-75.0) H 10/17/19 04:04 Lymph % (Auto) 11.1 % (21.0-51.0) L 10/17/19 04:04 [place] % (Auto) 6.9 % (0.0-13.0) 10/17/19 04:04 Eos % (Auto) 0.1 % (0.9-2.9) L 10/17/19 04:04 Baso % (Auto) 0.1 % (0.2-1.0) L 10/17/19 04:04 Neut # (Auto) 3.0 x10^3/uL (2.2-4.8) 10/17/19 04:04 Lymph # (Auto) 0.4 X10^3/uL (1.3-2.9) L 10/17/19 04:04 [place] # (Auto) 0.3 x10^3/uL (0.3-0.8) 10/17/19 04:04 Eos # (Auto) 0.0 x10^3/uL (0.0-0.2) 10/17/19 04:04 Baso # (Auto) 0.0 X10^3/uL (0.0-0.1) 10/17/19 04:04 Absolute Nucleated RBC 0.2 /100WBC 10/17/19 04:04 Sample Site Rra 10/15/19 12:50 ABG pH 7.430 (7.35-7.45) 10/15/19 12:50 ABG pCO2 43.0 mmHg (35.0-45.0) 10/15/19 12:50 ABG pO2 63.0 mmHg (80.0-100.0) L 10/15/19 12:50 ABG HCO3 28.5 mmol/L (22-26) H 10/15/19 12:50 ABG O2 Saturation 92.0 % (90-100) 10/15/19 12:50 ABG Base Excess 3.7 mmol/L (-2.0-2.0) H 10/15/19 12:50 Reagan Test Pos 10/15/19 12:50 A-a Gradient 33.0 mmHg 10/15/19 12:50 FiO2 21.0 10/15/19 12:50 Blood Gas Comments Pt negro well eb 10/15/19 12:50 Sodium 140 mmol/L (136-145) 10/17/19 04:04 Corrected Sodium 141 mmol/L (136-145) 10/17/19 04:04 Potassium 4.1 mmol/L (3.5-5.1) 10/17/19 04:04 Chloride 105 mmol/L (98-107) 10/17/19 04:04 Carbon Dioxide 27.4 mmol/L (21-32) 10/17/19 04:04 BUN 12 mg/dL (7-18) 10/17/19 04:04 Creatinine 0.53 mg/dL (0.55-1.02) L 10/17/19 04:04 Est GFR (MDRD) Af Amer > 60 (>60) 10/17/19 04:04 Est GFR (MDRD) Non-Af > 60 (>60) 10/17/19 04:04 Glucose 127 mg/dL (65-99) H 10/17/19 04:04 Lactic Acid 0.9 mmol/L (0.4-2.0) 10/15/19 12:58 Calcium 8.9 mg/dL (8.5-10.1) 10/17/19 04:04 Corrected Calcium 9.6 mg/dL (8.5-10.1) 10/17/19 04:04 Total Bilirubin 0.20 mg/dL (0.2-1.0) 10/17/19 04:04 AST 25 Units/L (15-37) 10/17/19 04:04 ALT 23 Units/L (12-78) 10/17/19 04:04 Alkaline Phosphatase 81 Units/L (46-116) 10/17/19 04:04 C-Reactive Protein 15.70 mg/L (0-3.0) H 10/16/19 05:50 Total Protein 6.3 g/dL (6.4-8.2) L 10/17/19 04:04 Albumin 3.1 g/dL (3.4-5.0) L 10/17/19 04:04 Globulin 3.2 g/dL (2.5-4.5) 10/17/19 04:04 Albumin/Globulin Ratio 1.0 Ratio (1.1-2.1) L 10/17/19 04:04 Specimen Type Clean catch urine 10/15/19 21:15 Urine Color Yellow (YELLOW) 10/15/19 21:15 Urine Appearance Clear (CLEAR) 10/15/19 21:15 Urine pH 6.0 (5.0 - 8.0) 10/15/19 21:15 Ur Specific [place] 1.025 (1.000-1.030) 10/15/19 21:15 Urine Protein 1+ (NEGATIVE) 10/15/19 21:15 Urine Glucose (UA) Negative (NEGATIVE) 10/15/19 21:15 Urine Ketones Negative (NEGATIVE) 10/15/19 21:15 Urine Occult Blood Negative (NEGATIVE) 10/15/19 21:15 Urine Nitrite Negative (NEGATIVE) 10/15/19 21:15 Urine Bilirubin Negative (NEGATIVE) 10/15/19 21:15 Urine Urobilinogen Normal (NORMAL) 10/15/19 21:15 Ur Leukocyte Esterase Negative (NEGATIVE) 10/15/19 21:15 Urine RBC 0-2 /HPF (0-3) 10/15/19 21:15 Urine WBC 0-2 /HPF (0-5) 10/15/19 21:15 Ur Squamous Epith Cells Rare /HPF (NEGATIVE) 10/15/19 21:15 Urine Bacteria Negative /HPF (NEGATIVE) 10/15/19 21:15 Hyaline Casts Rare /LPF (NEGATIVE) 10/15/19 21:15 Ur Culture Indicated? No/not indicated 10/15/19 21:15 Influenza Type A Ag Negative-presumptive (NEGATIVE) 10/15/19 13:28 Influenza Type B Ag Negative-presumptive (NEGATIVE) 10/15/19 13:28 SARS-CoV-2 (PCR) Positive (NEGATIVE) A 10/15/19 15:18 S. pyogenes (TEM-PCR) Not detected (NOT DETECT) 10/15/19 13:28 Plan (1) Pneumonia due to COVID-19 virus: Status: Acute Plan: Pneumonia protocol (2) Hypoxia: Status: Acute Plan: Supplemental O2, Albuterol inh, IS
[2019-10-17] MEDS: PROTONIX TAB 40 MG PO SCH (10:12)
[2019-10-17] MEDS: PEPCID TAB 20 MG PO SCH ×2 (10:13→20:04)
[2019-10-17] MEDS: KEPPRA TAB 500 MG PO SCH ×2 (10:14→20:04)
[2019-10-17] MEDS: LIPITOR TAB 40 MG PO SCH (10:14)
[2019-10-17] MEDS: PREDNISONE TAB 20 MG PO SCH (10:14)
[2019-10-17] MEDS: CLARITIN PO SCH (10:15)
[2019-10-17] MEDS: PriLOSEC PO SCH (10:15)
[2019-10-17] MEDS: ZITHROMAX TAB 250 MG PO SCH (10:15)
[2019-10-17] MEDS: SINGULAIR TAB 10 MG PO SCH (10:16)
[2019-10-17] MEDS: ELIQUIS PO SCH ×2 (10:16→20:04)
[2019-10-17] MEDS: PROzac PO SCH (10:16)
[2019-10-17] MEDS: SYNTHROID 88 mcg TAB PO SCH (10:18)
[2019-10-17] MEDS: LIBRAX PO SCH (10:18)
[2019-10-17] MEDS: NS 1000 ML 1,000 ML IV SCH ×2 (10:42→23:30)
[2019-10-17] MEDS: VENTOLIN or PROAIR HFA IN PRN ×2 (11:15→16:54)
[2019-10-17] MEDS: TYLENOL 325 MG TAB PO PRN (12:19)
[2019-10-17] MEDS: NEURONTIN CAP 400 MG PO SCH (20:04)
[2019-10-17] MEDS: LIORESAL PO SCH (20:05)
[2019-10-17] MEDS: RESTORIL CAP 15 MG PO PRN (20:05)
[2019-10-18] MEDS: NS 1000 ML 1,000 ML IV SCH (02:23)
[2019-10-18 05:25] LABS: BASOPHILS % (AUTO) 0.2 % (0.2-1.0); HEMATOCRIT 29.6 % (36.0-47.0); HEMOGLOBIN 9.7 g/dL (12.0-16.0); LYMPHOCYTES % (AUTO) 10.1 % (21.0-51.0); MEAN CORPUSCULAR HEMOGLOBIN 27.7 pg (27.0-34.0); MEAN CORPUSCULAR HGB CONC 32.7 g/dL (33.0-35.0); MEAN CORPUSCULAR VOLUME 84.6 fL (80.0-100.0); MEAN PLATELET VOLUME 10.1 fL (7.4-11.0); MONOCYTES # (AUTO) 0.4 x10^3/uL (0.3-0.8); MONOCYTES % (AUTO) 4.2 % (0.0-13.0); NEUTROPHILS # (AUTO) 8.1 x10^3/uL (2.2-4.8); NEUTROPHILS % (AUTO) 85.5 % (42.0-75.0); PLATELET COUNT 77 X10^3/uL (150.0-450.0); RED BLOOD COUNT 3.49 X10^6/uL (3.5-5.4); WHITE BLOOD COUNT 9.5 X10^3/uL (3.6-10.0)
[2019-10-18 05:39] LABS: ALANINE AMINOTRANSFERASE 18 Units/L (12-78); ALBUMIN 2.5 g/dL (3.4-5.0); ALKALINE PHOSPHATASE 64 Units/L (46-116); ASPARTATE AMINO TRANSFERASE 20 Units/L (15-37); BLOOD UREA NITROGEN 13 mg/dL (7-18); CALCIUM 8.4 mg/dL (8.5-10.1); CARBON DIOXIDE 28.7 mmol/L (21-32); CHLORIDE 108 mmol/L (98-107); COR CA(FOR HYPOALB) 9.6 mg/dL (8.5-10.1); CREATININE 0.57 mg/dL (0.55-1.02); SODIUM 141 mmol/L (136-145); TOTAL PROTEIN 5.2 g/dL (6.4-8.2); eGFR NON BLACK RACES > 60 (>60)
--- NOTE | 2019-10-18 08:10 | W.DIS.FURT ---
Summary of Discharge Discharge Summary of Date Date of Exam: 10/18/19 Admission Date Date of Admission: 10/16/19 Admission Diagnosis Hospital Course: Pt is a 68 y/o f pmhx CVA, Afib(post ablation w/ loop recorder), Hypothyroidism, Hiatal hernia, that was admitted for COVID19 pneumonia(positive on 10/14) and hypoxia. Her treatments included supplemental O2, Azithromycin, IV Solumedrol, Albuterol inh, IS. and she was placed on pneumonia protocol. CXR and BloodCx negative. Pt was able to be slowly weaned off supplemental O2 w/ ambulatory O2 >90%. She was discharged in stable condition and instructed to complete azithromycin and prednisone course. F/u pcp in 1-2 weeks. Vital Signs: Vital Signs (72 hours) 10/15/19 12:13 10/15/19 12:26 10/15/19 12:29 Temperature 100.4 F H Pulse Rate 104 H 94 H 94 H Pulse Rate [Left Radial] Respiratory Rate 20 22 25 H Blood Pressure 108/69 Blood Pressure [Left Arm] O2 Sat by Pulse Oximetry 92 L 90 L 88 L 10/15/19 12:30 10/15/19 12:45 10/15/19 13:00 Temperature Pulse Rate 95 H 95 H 95 H Pulse Rate [Left Radial] Respiratory Rate 35 H 37 H 23 Blood Pressure 116/72 Blood Pressure [Left Arm] O2 Sat by Pulse Oximetry 88 L 84 L 10/15/19 13:04 10/15/19 13:07 10/15/19 13:15 Temperature Pulse Rate 94 H 92 H Pulse Rate [Left Radial] Respiratory Rate 25 H 18 20 Blood Pressure 115/76 Blood Pressure [Left Arm] O2 Sat by Pulse Oximetry 87 L 10/15/19 13:18 10/15/19 13:30 10/15/19 13:45 Temperature Pulse Rate 92 H 89 Pulse Rate [Left Radial] 78 Respiratory Rate 18 25 H 21 Blood Pressure 130/66 Blood Pressure [Left Arm] 130/72 O2 Sat by Pulse Oximetry 98 85 L 98 10/15/19 14:00 10/15/19 14:07 10/15/19 14:15 Temperature Pulse Rate 92 H 91 H Pulse Rate [Left Radial] Respiratory Rate 20 27 H 20 Blood Pressure 120/63 Blood Pressure [Left Arm] O2 Sat by Pulse Oximetry 97 97 10/15/19 14:30 10/15/19 14:43 10/15/19 14:45 Temperature 99.4 F Pulse Rate 92 H 90 Pulse Rate [Left Radial] 89 Respiratory Rate 20 18 27 H Blood Pressure 126/66 Blood Pressure [Left Arm] 126/66 O2 Sat by Pulse Oximetry 96 97 97 10/15/19 15:00 10/15/19 15:15 10/15/19 15:30 Temperature Pulse Rate 89 92 H 85 Pulse Rate [Left Radial] Respiratory Rate 21 19 17 Blood Pressure 133/63 116/59 Blood Pressure [Left Arm] O2 Sat by Pulse Oximetry 97 96 96 10/15/19 15:45 10/15/19 16:00 10/15/19 16:15 Temperature Pulse Rate 83 82 82 Pulse Rate [Left Radial] Respiratory Rate 19 15 17 Blood Pressure 102/59 Blood Pressure [Left Arm] O2 Sat by Pulse Oximetry 96 98 98 10/15/19 16:30 10/15/19 16:45 10/15/19 17:00 Temperature Pulse Rate 80 89 84 Pulse Rate [Left Radial] Respiratory Rate 16 26 H 19 Blood Pressure 108/57 114/63 Blood Pressure [Left Arm] O2 Sat by Pulse Oximetry 99 95 97 10/15/19 17:22 10/15/19 17:23 10/15/19 17:30 Temperature Pulse Rate 86 88 80 Pulse Rate [Left Radial] Respiratory Rate 22 Blood Pressure 105/66 Blood Pressure [Left Arm] O2 Sat by Pulse Oximetry 97 100 99 10/15/19 17:31 10/15/19 17:45 10/15/19 18:00 Temperature Pulse Rate 81 81 81 Pulse Rate [Left Radial] Respiratory Rate 16 26 H 17 Blood Pressure 97/58 107/58 Blood Pressure [Left Arm] O2 Sat by Pulse Oximetry 100 100 99 10/15/19 19:00 10/15/19 20:00 10/15/19 21:00 Temperature 98.1 F Pulse Rate 82 80 84 Pulse Rate [Left Radial] Respiratory Rate 17 15 12 Blood Pressure 116/56 105/52 113/67 Blood Pressure [Left Arm] O2 Sat by Pulse Oximetry 98 100 97 10/15/19 22:00 10/15/19 23:00 10/16/19 00:00 Temperature 98.7 F Pulse Rate 79 72 75 Pulse Rate [Left Radial] Respiratory Rate 17 18 16 Blood Pressure 97/54 103/52 147/65 Blood Pressure [Left Arm] O2 Sat by Pulse Oximetry 100 96 100 10/16/19 00:09 10/16/19 01:00 10/16/19 01:09 Temperature Pulse Rate 82 Pulse Rate [Left Radial] Respiratory Rate 16 21 21 Blood Pressure 111/56 Blood Pressure [Left Arm] O2 Sat by Pulse Oximetry 99 10/16/19 01:54 10/16/19 02:00 10/16/19 03:00 Temperature Pulse Rate 87 89 Pulse Rate [Left Radial] Respiratory Rate 21 17 21 Blood Pressure 139/72 104/53 Blood Pressure [Left Arm] O2 Sat by Pulse Oximetry 99 97 10/16/19 04:00 10/16/19 05:00 10/16/19 06:00 Temperature 98.9 F Pulse Rate 84 79 83 Pulse Rate [Left Radial] Respiratory Rate 17 20 15 Blood Pressure 110/59 123/60 100/53 Blood Pressure [Left Arm] O2 Sat by Pulse Oximetry 96 98 98 10/16/19 07:00 10/16/19 08:00 10/16/19 09:00 Temperature 100.6 F H Pulse Rate 83 97 H 86 Pulse Rate [Left Radial] Respiratory Rate 20 17 24 Blood Pressure 110/54 95/74 136/60 Blood Pressure [Left Arm] O2 Sat by Pulse Oximetry 94 L 96 96 10/16/19 09:30 10/16/19 09:35 10/16/19 10:00 Temperature Pulse Rate 86 89 Pulse Rate [Left Radial] Respiratory Rate 21 15 Blood Pressure 108/52 Blood Pressure [Left Arm] O2 Sat by Pulse Oximetry 98 100 10/16/19 10:35 10/16/19 11:00 10/16/19 12:00 Temperature 99.1 F Pulse Rate 84 82 Pulse Rate [Left Radial] Respiratory Rate 17 17 23 Blood Pressure 109/55 112/65 Blood Pressure [Left Arm] O2 Sat by Pulse Oximetry 96 97 10/16/19 16:00 10/16/19 19:13 10/16/19 20:00 Temperature 99.3 F 98.3 F Pulse Rate 73 70 Pulse Rate [Left Radial] Respiratory Rate 24 24 17 Blood Pressure 132/67 130/68 Blood Pressure [Left Arm] O2 Sat by Pulse Oximetry 99 94 L 10/16/19 20:13 10/16/19 21:15 10/16/19 21:30 Temperature Pulse Rate 68 72 Pulse Rate [Left Radial] Respiratory Rate 15 16 21 Blood Pressure Blood Pressure [Left Arm] O2 Sat by Pulse Oximetry 96 98 10/16/19 21:45 10/16/19 21:50 10/16/19 22:00 Temperature Pulse Rate 71 69 77 Pulse Rate [Left Radial] Respiratory Rate 21 33 H Blood Pressure Blood Pressure [Left Arm] O2 Sat by Pulse Oximetry 98 99 97 10/16/19 22:15 10/16/19 22:30 10/16/19 22:45 Temperature Pulse Rate 87 75 74 Pulse Rate [Left Radial] Respiratory Rate Blood Pressure Blood Pressure [Left Arm] O2 Sat by Pulse Oximetry 95 96 98 10/16/19 23:00 10/16/19 23:15 10/16/19 23:30 Temperature Pulse Rate 76 71 71 Pulse Rate [Left Radial] Respiratory Rate 20 24 24 Blood Pressure Blood Pressure [Left Arm] O2 Sat by Pulse Oximetry 96 97 100 10/16/19 23:45 10/17/19 00:00 10/17/19 00:15 Temperature 97.9 F Pulse Rate 68 68 74 Pulse Rate [Left Radial] Respiratory Rate 23 30 H 35 H Blood Pressure 123/63 Blood Pressure [Left Arm] O2 Sat by Pulse Oximetry 97 98 93 L 10/17/19 00:30 10/17/19 00:45 10/17/19 01:00 Temperature Pulse Rate 69 73 72 Pulse Rate [Left Radial] Respiratory Rate 21 16 22 Blood Pressure Blood Pressure [Left Arm] O2 Sat by Pulse Oximetry 98 95 96 10/17/19 01:15 10/17/19 01:18 10/17/19 01:30 Temperature Pulse Rate 72 73 72 Pulse Rate [Left Radial] Respiratory Rate 25 H 22 20 Blood Pressure 123/63 Blood Pressure [Left Arm] O2 Sat by Pulse Oximetry 97 96 96 10/17/19 01:45 10/17/19 02:00 10/17/19 02:15 Temperature Pulse Rate 69 71 68 Pulse Rate [Left Radial] Respiratory Rate 18 21 24 Blood Pressure Blood Pressure [Left Arm] O2 Sat by Pulse Oximetry 95 95 96 10/17/19 02:30 10/17/19 02:45 10/17/19 03:00 Temperature Pulse Rate 69 66 61 Pulse Rate [Left Radial] Respiratory Rate 19 15 14 Blood Pressure Blood Pressure [Left Arm] O2 Sat by Pulse Oximetry 95 98 100 10/17/19 03:15 10/17/19 03:30 10/17/19 03:45 Temperature Pulse Rate 59 L 61 62 Pulse Rate [Left Radial] Respiratory Rate 14 13 14 Blood Pressure Blood Pressure [Left Arm] O2 Sat by Pulse Oximetry 100 100 100 10/17/19 04:00 10/17/19 04:11 10/17/19 04:15 Temperature 97.7 F Pulse Rate 65 64 62 Pulse Rate [Left Radial] Respiratory Rate 13 14 14 Blood Pressure 131/60 131/60 Blood Pressure [Left Arm] O2 Sat by Pulse Oximetry 100 99 100 10/17/19 04:30 10/17/19 04:45 10/17/19 05:00 Temperature Pulse Rate 62 60 60 Pulse Rate [Left Radial] Respiratory Rate 14 13 16 Blood Pressure Blood Pressure [Left Arm] O2 Sat by Pulse Oximetry 100 100 100 10/17/19 05:15 10/17/19 05:30 10/17/19 05:45 Temperature Pulse Rate 60 67 67 Pulse Rate [Left Radial] Respiratory Rate 22 28 H 21 Blood Pressure Blood Pressure [Left Arm] O2 Sat by Pulse Oximetry 100 100 100 10/17/19 06:00 10/17/19 06:15 10/17/19 06:30 Temperature Pulse Rate 65 66 64 Pulse Rate [Left Radial] Respiratory Rate 14 16 13 Blood Pressure Blood Pressure [Left Arm] O2 Sat by Pulse Oximetry 99 99 100 10/17/19 06:45 10/17/19 07:00 10/17/19 07:15 Temperature Pulse Rate 61 60 57 L Pulse Rate [Left Radial] Respiratory Rate 14 13 14 Blood Pressure Blood Pressure [Left Arm] O2 Sat by Pulse Oximetry 100 100 100 10/17/19 07:30 10/17/19 07:45 10/17/19 08:02 Temperature 98.1 F Pulse Rate 61 72 86 Pulse Rate [Left Radial] Respiratory Rate 21 19 Blood Pressure Blood Pressure [Left Arm] O2 Sat by Pulse Oximetry 100 100 90 L 10/17/19 08:15 10/17/19 08:30 10/17/19 08:45 Temperature Pulse Rate 137 H 70 70 Pulse Rate [Left Radial] Respiratory Rate 30 H 20 25 H Blood Pressure Blood Pressure [Left Arm] O2 Sat by Pulse Oximetry 95 98 98 10/17/19 08:50 10/17/19 09:00 10/17/19 09:37 Temperature Pulse Rate 72 70 78 Pulse Rate [Left Radial] Respiratory Rate 31 H 17 Blood Pressure 123/60 Blood Pressure [Left Arm] O2 Sat by Pulse Oximetry 100 99 97 10/17/19 09:45 10/17/19 10:00 10/17/19 10:15 Temperature Pulse Rate 72 72 69 Pulse Rate [Left Radial] Respiratory Rate Blood Pressure Blood Pressure [Left Arm] O2 Sat by Pulse Oximetry 98 98 100 10/17/19 10:30 10/17/19 10:45 10/17/19 11:00 Temperature Pulse Rate 70 64 64 Pulse Rate [Left Radial] Respiratory Rate Blood Pressure Blood Pressure [Left Arm] O2 Sat by Pulse Oximetry 100 97 98 10/17/19 11:15 10/17/19 11:17 10/17/19 11:30 Temperature Pulse Rate 66 63 66 Pulse Rate [Left Radial] Respiratory Rate 16 27 H Blood Pressure 129/62 Blood Pressure [Left Arm] O2 Sat by Pulse Oximetry 100 100 99 10/17/19 11:45 10/17/19 12:00 10/17/19 12:15 Temperature 98.1 F Pulse Rate 69 70 71 Pulse Rate [Left Radial] Respiratory Rate 18 18 15 Blood Pressure 125/59 Blood Pressure [Left Arm] O2 Sat by Pulse Oximetry 94 L 98 98 10/17/19 12:19 10/17/19 12:30 10/17/19 12:45 Temperature Pulse Rate 75 78 Pulse Rate [Left Radial] Respiratory Rate 19 25 H 17 Blood Pressure Blood Pressure [Left Arm] O2 Sat by Pulse Oximetry 100 99 10/17/19 13:00 10/17/19 13:15 10/17/19 13:19 Temperature Pulse Rate 78 79 Pulse Rate [Left Radial] Respiratory Rate 14 14 21 Blood Pressure 111/57 Blood Pressure [Left Arm] O2 Sat by Pulse Oximetry 98 100 10/17/19 13:30 10/17/19 13:53 10/17/19 13:54 Temperature Pulse Rate 92 H 80 80 Pulse Rate [Left Radial] Respiratory Rate 26 H 17 Blood Pressure 117/56 Blood Pressure [Left Arm] O2 Sat by Pulse Oximetry 95 95 97 10/17/19 14:00 10/17/19 14:15 10/17/19 14:30 Temperature Pulse Rate 79 78 78 Pulse Rate [Left Radial] Respiratory Rate 18 17 17 Blood Pressure 112/56 Blood Pressure [Left Arm] O2 Sat by Pulse Oximetry 94 L 95 95 10/17/19 14:45 10/17/19 15:00 10/17/19 15:15 Temperature Pulse Rate 74 73 74 Pulse Rate [Left Radial] Respiratory Rate 12 17 21 Blood Pressure 126/60 Blood Pressure [Left Arm] O2 Sat by Pulse Oximetry 96 98 97 10/17/19 15:30 10/17/19 15:45 10/17/19 16:00 Temperature Pulse Rate 72 69 69 Pulse Rate [Left Radial] Respiratory Rate 27 H 24 15 Blood Pressure 119/57 Blood Pressure [Left Arm] O2 Sat by Pulse Oximetry 96 98 96 10/17/19 16:15 10/17/19 20:00 10/18/19 00:00 Temperature 98.8 F 98 F Pulse Rate 71 68 63 Pulse Rate [Left Radial] Respiratory Rate 24 20 18 Blood Pressure 111/56 163/64 Blood Pressure [Left Arm] O2 Sat by Pulse Oximetry 96 98 100 10/18/19 04:00 Temperature 98.7 F Pulse Rate 74 Pulse Rate [Left Radial] Respiratory Rate 21 Blood Pressure 128/64 Blood Pressure [Left Arm] O2 Sat by Pulse Oximetry 97 Labs: Laboratory Last Values WBC 9.5 X10^3/uL (3.6-10.0) 10/18/19 03:59 RBC 3.49 X10^6/uL (3.5-5.4) L 10/18/19 03:59 Hgb 9.7 g/dL (12.0-16.0) L 10/18/19 03:59 Hct 29.6 % (36.0-47.0) L 10/18/19 03:59 MCV 84.6 fL (80.0-100.0) 10/18/19 03:59 MCH 27.7 pg (27.0-34.0) 10/18/19 03:59 MCHC 32.7 g/dL (33.0-35.0) L 10/18/19 03:59 RDW 17.0 % (11.6-16.5) H 10/18/19 03:59 Plt Count 77 X10^3/uL (150.0-450.0) L 10/18/19 03:59 MPV 10.1 fL (7.4-11.0) 10/18/19 03:59 Neut % (Auto) 85.5 % (42.0-75.0) H 10/18/19 03:59 Lymph % (Auto) 10.1 % (21.0-51.0) L 10/18/19 03:59 [place] % (Auto) 4.2 % (0.0-13.0) 10/18/19 03:59 Eos % (Auto) 0.0 % (0.9-2.9) L 10/18/19 03:59 Baso % (Auto) 0.2 % (0.2-1.0) 10/18/19 03:59 Neut # (Auto) 8.1 x10^3/uL (2.2-4.8) H 10/18/19 03:59 Lymph # (Auto) 1.0 X10^3/uL (1.3-2.9) L 10/18/19 03:59 [place] # (Auto) 0.4 x10^3/uL (0.3-0.8) 10/18/19 03:59 Eos # (Auto) 0.0 x10^3/uL (0.0-0.2) 10/18/19 03:59 Baso # (Auto) 0.0 X10^3/uL (0.0-0.1) 10/18/19 03:59 Absolute Nucleated RBC 0.0 /100WBC 10/18/19 03:59 Sample Site Rra 10/15/19 12:50 ABG pH 7.430 (7.35-7.45) 10/15/19 12:50 ABG pCO2 43.0 mmHg (35.0-45.0) 10/15/19 12:50 ABG pO2 63.0 mmHg (80.0-100.0) L 10/15/19 12:50 ABG HCO3 28.5 mmol/L (22-26) H 10/15/19 12:50 ABG O2 Saturation 92.0 % (90-100) 10/15/19 12:50 ABG Base Excess 3.7 mmol/L (-2.0-2.0) H 10/15/19 12:50 Reagan Test Pos 10/15/19 12:50 A-a Gradient 33.0 mmHg 10/15/19 12:50 FiO2 21.0 10/15/19 12:50 Blood Gas Comments Pt negro well eb 10/15/19 12:50 Sodium 141 mmol/L (136-145) 10/18/19 03:59 Corrected Sodium TNP 10/18/19 03:59 Potassium 3.6 mmol/L (3.5-5.1) 10/18/19 03:59 Chloride 108 mmol/L (98-107) H 10/18/19 03:59 Carbon Dioxide 28.7 mmol/L (21-32) 10/18/19 03:59 BUN 13 mg/dL (7-18) 10/18/19 03:59 Creatinine 0.57 mg/dL (0.55-1.02) 10/18/19 03:59 Est GFR (MDRD) Af Amer > 60 (>60) 10/18/19 03:59 Est GFR (MDRD) Non-Af > 60 (>60) 10/18/19 03:59 Glucose 98 mg/dL (65-99) 10/18/19 03:59 Lactic Acid 0.9 mmol/L (0.4-2.0) 10/15/19 12:58 Calcium 8.4 mg/dL (8.5-10.1) L 10/18/19 03:59 Corrected Calcium 9.6 mg/dL (8.5-10.1) 10/18/19 03:59 Total Bilirubin 0.10 mg/dL (0.2-1.0) L 10/18/19 03:59 AST 20 Units/L (15-37) 10/18/19 03:59 ALT 18 Units/L (12-78) 10/18/19 03:59 Alkaline Phosphatase 64 Units/L (46-116) 10/18/19 03:59 C-Reactive Protein 15.70 mg/L (0-3.0) H 10/16/19 05:50 Total Protein 5.2 g/dL (6.4-8.2) L 10/18/19 03:59 Albumin 2.5 g/dL (3.4-5.0) L 10/18/19 03:59 Globulin 2.7 g/dL (2.5-4.5) 10/18/19 03:59 Albumin/Globulin Ratio 0.9 Ratio (1.1-2.1) L 10/18/19 03:59 Specimen Type Clean catch urine 10/15/19 21:15 Urine Color Yellow (YELLOW) 10/15/19 21:15 Urine Appearance Clear (CLEAR) 10/15/19 21:15 Urine pH 6.0 (5.0 - 8.0) 10/15/19 21:15 Ur Specific [place] 1.025 (1.000-1.030) 10/15/19 21:15 Urine Protein 1+ (NEGATIVE) 10/15/19 21:15 Urine Glucose (UA) Negative (NEGATIVE) 10/15/19 21:15 Urine Ketones Negative (NEGATIVE) 10/15/19 21:15 Urine Occult Blood Negative (NEGATIVE) 10/15/19 21:15 Urine Nitrite Negative (NEGATIVE) 10/15/19 21:15 Urine Bilirubin Negative (NEGATIVE) 10/15/19 21:15 Urine Urobilinogen Normal (NORMAL) 10/15/19 21:15 Ur Leukocyte Esterase Negative (NEGATIVE) 10/15/19 21:15 Urine RBC 0-2 /HPF (0-3) 10/15/19 21:15 Urine WBC 0-2 /HPF (0-5) 10/15/19 21:15 Ur Squamous Epith Cells Rare /HPF (NEGATIVE) 10/15/19 21:15 Urine Bacteria Negative /HPF (NEGATIVE) 10/15/19 21:15 Hyaline Casts Rare /LPF (NEGATIVE) 10/15/19 21:15 Ur Culture Indicated? No/not indicated 10/15/19 21:15 Influenza Type A Ag Negative-presumptive (NEGATIVE) 10/15/19 13:28 Influenza Type B Ag Negative-presumptive (NEGATIVE) 10/15/19 13:28 SARS-CoV-2 (PCR) Positive (NEGATIVE) A 10/15/19 15:18 S. pyogenes (TEM-PCR) Not detected (NOT DETECT) 10/15/19 13:28 Reason For Visit: HYPOXIA, FEVER, FAILED OUTPT THERAPY Discharge Date Discharge Date: 10/18/19 Discharge Diagnosis All Active Problems (Updated 10/16/19 @ 12:10 by Harriet Sage) Pneumonia due to COVID-19 virus (Acute) COVID-19 (Acute) Hypoxia (Acute) Atrial fibrillation (Chronic) CVA (cerebral vascular accident) (Chronic) Left-sided weakness (Chronic) Lower back pain (Chronic) Plan of Treatment: Continue with present treatment and follow up plan. Pt is to keep follow up appointment as instructed and take medications as ordered. Discharge Medications Discharge Medications: Sulfa (Sulfonamide Antibiotics) [SULFA] Allergy (Verified 06/05/19 14:48) CONTINUE taking the following medications baclofen 10 mg PO HS 10/15/19 [History] famotidine 40 mg PO BID 10/15/19 [History] montelukast 10 mg PO DAILY 10/15/19 [History] omeprazole 40 mg PO DAILY 10/15/19 [History] New Prescriptions azithromycin 250 mg PO DAILY 3 Days #3 tab 10/18/19 [Rx] fluconazole [Diflucan] 150 mg PO Q3D #2 tab 10/18/19 [Rx] prednisone 40 mg PO DAILY 3 Days #6 tab 10/18/19 [Rx] Follow up and Referral Follow Up: 1 Week Discharge Disposition Discharge Disposition: Home Discharge Condition: Stable
[2019-10-18] MEDS: VENTOLIN or PROAIR HFA IN PRN (08:40)
[2019-10-18] MEDS: ELIQUIS PO SCH (09:41)
[2019-10-18] MEDS: TYLENOL 325 MG TAB PO PRN (09:42)
[2019-10-18] MEDS: KEPPRA TAB 500 MG PO SCH (09:42)
[2019-10-18] MEDS: SINGULAIR TAB 10 MG PO SCH (09:44)
[2019-10-18] MEDS: LIPITOR TAB 40 MG PO SCH (09:44)
[2019-10-18] MEDS: PREDNISONE TAB 20 MG PO SCH (09:44)
[2019-10-18] MEDS: PROzac PO SCH (09:44)
[2019-10-18] MEDS: PriLOSEC PO SCH (09:45)
[2019-10-18] MEDS: PEPCID TAB 20 MG PO SCH (09:45)
[2019-10-18] MEDS: ZITHROMAX TAB 250 MG PO SCH (09:45)
[2019-10-18] MEDS: CLARITIN PO SCH (09:45)
[2019-10-18] MEDS: PROTONIX TAB 40 MG PO SCH (09:45)
[2019-10-18] MEDS: SYNTHROID 88 mcg TAB PO SCH (09:46)
[2019-10-18] MEDS: LIBRAX PO SCH (09:50)
[2019-10-18 13:44] VITALS: BP 101/59
== END 2019-10-18 15:50 | disposition home or self-care (01) | DRG 177 ==
LOC: ICU 12:12 → ER 12:12 → OBSVTOIN 15:16 → ICU 17:05
PROVIDERS: ADMIT Internal Medicine; ATTEND Internal Medicine
DX: Z86.73 Personal history of transient ischemic attack (TIA), and cerebral infarction without residual deficits; R09.02 Hypoxemia; I48.91 Unspecified atrial fibrillation; R26.89 Other abnormalities of gait and mobility; J12.89 Other viral pneumonia; U07.1 COVID-19; K44.9 Diaphragmatic hernia without obstruction or gangrene; R06.02 Shortness of breath; E03.8 Other specified hypothyroidism
CPT/HCPCS: 36415; 36600; 71010; 71045; 80053; 81001; 82803; 83605; 85025; 86140; 87040; 87400; 87635; 87651; 87804; 94640; 94760; 96365; 96367; 97162; 97166; 97530; 97535; 99284; A4216; A4222; J2930; J3490; J7030; J7040; J7512

== ENCOUNTER 2019-10-21 12:53 | Inpatient (IN) ==
[2019-10-21 13:47] LABS: BASOPHILS % (AUTO) 0.2 % (0.2-1.0); HEMATOCRIT 33.3 % (36.0-47.0); HEMOGLOBIN 10.8 g/dL (12.0-16.0); LYMPHOCYTES # (AUTO) 0.7 X10^3/uL (1.3-2.9); LYMPHOCYTES % (AUTO) 6.8 % (21.0-51.0); MEAN CORPUSCULAR HEMOGLOBIN 27.2 pg (27.0-34.0); MEAN CORPUSCULAR HGB CONC 32.3 g/dL (33.0-35.0); MEAN CORPUSCULAR VOLUME 84.2 fL (80.0-100.0); MEAN PLATELET VOLUME 10.3 fL (7.4-11.0); MONOCYTES # (AUTO) 0.4 x10^3/uL (0.3-0.8); MONOCYTES % (AUTO) 3.5 % (0.0-13.0); NEUTROPHILS # (AUTO) 9.8 x10^3/uL (2.2-4.8); NEUTROPHILS % (AUTO) 89.5 % (42.0-75.0); PLATELET COUNT 95 X10^3/uL (150.0-450.0); RED BLOOD COUNT 3.95 X10^6/uL (3.5-5.4); RED CELL DISTRIBUTION WIDTH 17.3 % (11.6-16.5); WHITE BLOOD COUNT 10.9 X10^3/uL (3.6-10.0)
[2019-10-21 13:53] LABS: ALANINE AMINOTRANSFERASE 19 Units/L (12-78); ALBUMIN 2.4 g/dL (3.4-5.0); ALKALINE PHOSPHATASE 64 Units/L (46-116); ASPARTATE AMINO TRANSFERASE 36 Units/L (15-37); BLOOD UREA NITROGEN 13 mg/dL (7-18); CALCIUM 8.1 mg/dL (8.5-10.1); CARBON DIOXIDE 31.8 mmol/L (21-32); CHLORIDE 102 mmol/L (98-107); COR CA(FOR HYPOALB) 9.4 mg/dL (8.5-10.1); CREATININE 0.83 mg/dL (0.55-1.02); SODIUM 141 mmol/L (136-145); TOTAL PROTEIN 6.1 g/dL (6.4-8.2); eGFR NON BLACK RACES > 60 (>60)
[2019-10-21 14:12] LABS: HYPOCHROMASIA SLIGHT; PLATELET MORPHOLOGY COMMENT ABNORMAL (NORMAL)
[2019-10-21 14:13] LABS: ANISOCYTOSIS 1+
[2019-10-21 14:39] LABS: ABG BASE EXCESS 9.8 mmol/L (-2.0-2.0)
[2019-10-21 14:41] LABS: ABG HCO3 33.4 mmol/L (22-26)
[2019-10-21] MEDS ORDERED: KLOR-CON PO ONE (14:41)
[2019-10-21 14:44] LABS: CKMB % 1.3 % (<4); CREATINE KINASE 76 Units/L (26-192); CREATINE KINASE MB < 1.0 ng/mL (0-4.0); MAGNESIUM 1.9 mg/dL (1.7-2.9); TROPONIN I < 0.02 ng/mL (0-1.5)
--- NOTE | 2019-10-21 14:46 | RAD ---
HISTORYSOB, POSITIVE COVIDSTUDYPortable AP chestCOMPARISONJune 2019FINDINGSThere is increasingly severe pulmonary infiltrates diffusely in the right lung and in the left upper lobe. The heart size is normal. There is no obvious effusion. Mediastinum is unremarkable.IMPRESSIONIncreasingly severe primary make right lung pneumonia and less severe left upper lobe pneumoniaElectronically signed by: ANIBAL GONZALEZ (Oct 21, 2019 14:45:50)
--- NOTE | 2019-10-21 16:17 | DR.SOBA ---
HPI Time Seen Time Seen by Provider: 10/21/19 14:05 HPI Comment HPI Comment: Covid + patient, c/o worsening SHOB and intermittent fevers. Complaints Chief Complaint:: [facility] DISPATCHED OUT TO PATIENT. ON SCENE EMS STATED THAT PATIENTS O2 WAS 60% ON ROOM PATIENT WAS PLACED ON A NONREBREATHER ON SCENE. PATIENT ALERT AND ORIENTED C/O DIFFICULTY BREATHING. PATIENT WAS DISCHARGED MONDAY FROM ICU PATIENT WAS COVID POSITIVE. COVID-19 Coronavirus risk:travel/contact w/high risk person: Yes Has patient experienced Coronavirus symptoms: Yes Coronavirus symptoms experienced: Fever, Coughing and Shortness of Breath Source History Provided: Patient and EMS Mode of Arrival Mode of Arrival: EMS Timing Onset of Chief Complaint: 10/21/19 PMH PMH Past Medical History: Yes Past Medical History: Anxiety, Arthritis, CVA, Depression, Hypertension, Hypothyroidism and Seizures Past Surgical History: Yes Surgical History: Hysterectomy Family History History of Family Medical Conditions: Yes Family Medical History: Cancer Social History Alcohol Use: None Do you use any recreational Drugs:: No Travel Risk Coronavirus risk:travel/contact w/high risk person: Yes Has patient experienced Coronavirus symptoms: Yes Coronavirus symptoms experienced: Fever, Coughing and Shortness of Breath Infectious screening Have you traveled outside the country in the last 6 months?: No Isolation: Droplet ROS Review of Systems Constitutional: See HPI Eyes: No Symptoms Reported ENTM: No Symptoms Reported Respiratoy: See HPI Cardiovascular: No Symptoms Reported Gastrointestinal/Abdominal: No Symptoms Reported Genitourinary: No Symptoms Reported Neurological: No Symptoms Reported Musculoskeletal: No Symptoms Reported Integumentary: No Symptoms Reported Hematologic/Lymphatic: No Symptoms Reported Endocrine: No Symptoms Reported Psychiatric: No Symptoms Reported All Other Systems: Reviewed and Negative PE Vital Signs Vitals: Temperature 99.9 F Pulse Rate 82 Respiratory Rate 20 Blood Pressure [Left Arm] 126/66 Blood Pressure 124/66 O2 Sat by Pulse Oximetry 95 General Limitations: No Limitations General Appearance: Alert and In No Apparent Distress Head Head Exam: Normal Inspection Eyes Eye exam: Normal Appearance ENT ENT Exam: Normal Exam Neck Neck Exam: Normal Inspection Chest Chest Inspection: Normal Inspection and Symmetric Chest Wall Rise Respiratory Respiratory Exam: Normal Lung Sounds Bilat; negative Accessory Muscle Use and Respiratory Distress Respiratory Exam: Bilateral: Clear to Auscultation Cardiovascular Cardiovascular Exam: Regular Rate and Normal Rhythm Abdominal Exam Abdominal Exam: Normal Inspection, Normal Bowel Sounds and Soft; negative Tenderness Extremities Extremities Exam: Normal Inspection Back Back Exam: Normal Inspection Neurologic Neurological Exam: Alert and Oriented X3 Psychiatric Psychiatric Exam: Normal Affect and Normal Mood Skin Skin Exam: Warm, Dry, Intact and Normal Color COURSE Treatment Treatment: Due to confirmed hypoxia by ABG, V-mask placed. CXR now with right sided opacities. Leukocytosis concerning for bacterial co-pneumonia. Discussed case with Dr. Chakraborty who agreed to admit. Dr. Kunz informed. Reevaluation 1st: Improved ROR Labs Reviewed Result Diagrams: 10/21/19 13:10 10/21/19 13:10 Laboratory: WBC 10.9 X10^3/uL (3.6-10.0) H 10/21/19 13:10 RBC 3.95 X10^6/uL (3.5-5.4) 10/21/19 13:10 Hgb 10.8 g/dL (12.0-16.0) L 10/21/19 13:10 Hct 33.3 % (36.0-47.0) L 10/21/19 13:10 MCV 84.2 fL (80.0-100.0) 10/21/19 13:10 MCH 27.2 pg (27.0-34.0) 10/21/19 13:10 MCHC 32.3 g/dL (33.0-35.0) L 10/21/19 13:10 RDW 17.3 % (11.6-16.5) H 10/21/19 13:10 Plt Count 95 X10^3/uL (150.0-450.0) L 10/21/19 13:10 Plt Count Comment Decreased (ADEQUATE) A 10/21/19 13:10 MPV 10.3 fL (7.4-11.0) 10/21/19 13:10 Neut % (Auto) 89.5 % (42.0-75.0) H 10/21/19 13:10 Lymph % (Auto) 6.8 % (21.0-51.0) L 10/21/19 13:10 [place] % (Auto) 3.5 % (0.0-13.0) 10/21/19 13:10 Eos % (Auto) 0.0 % (0.9-2.9) L 10/21/19 13:10 Baso % (Auto) 0.2 % (0.2-1.0) 10/21/19 13:10 Neut # (Auto) 9.8 x10^3/uL (2.2-4.8) H 10/21/19 13:10 Lymph # (Auto) 0.7 X10^3/uL (1.3-2.9) L 10/21/19 13:10 [place] # (Auto) 0.4 x10^3/uL (0.3-0.8) 10/21/19 13:10 Eos # (Auto) 0.0 x10^3/uL (0.0-0.2) 10/21/19 13:10 Baso # (Auto) 0.0 X10^3/uL (0.0-0.1) 10/21/19 13:10 Absolute Nucleated RBC 0.0 /100WBC 10/21/19 13:10 Giant Platelets None 10/21/19 13:10 Plt Morphology Comment Abnormal (NORMAL) A 10/21/19 13:10 RBC Morphology Abnormal (NORMAL) A 10/21/19 13:10 Hypochromasia Slight A 10/21/19 13:10 Anisocytosis 1+ A 10/21/19 13:10 Sample Site Right brachial 10/21/19 14:28 ABG pH 7.530 (7.35-7.45) H 10/21/19 14:28 ABG pCO2 40.0 mmHg (35.0-45.0) 10/21/19 14:28 ABG pO2 48.0 mmHg (80.0-100.0) L* 10/21/19 14:28 ABG HCO3 33.4 mmol/L (22-26) H* 10/21/19 14:28 ABG O2 Saturation 88.0 % (90-100) L 10/21/19 14:28 ABG Base Excess 9.8 mmol/L (-2.0-2.0) H 10/21/19 14:28 Reagan Test Na 10/21/19 14:28 A-a Gradient 102.0 mmHg 10/21/19 14:28 FiO2 28.0 10/21/19 14:28 Blood Gas Comments [place] well aw 10/21/19 14:28 Sodium 141 mmol/L (136-145) 10/21/19 13:10 Sodium Cancelled 10/21/19 13:10 Corrected Sodium Cancelled 10/21/19 13:10 Corrected Sodium TNP 10/21/19 13:10 Potassium 3.2 mmol/L (3.5-5.1) L 10/21/19 13:10 Potassium Cancelled 10/21/19 13:10 Chloride 102 mmol/L (98-107) 10/21/19 13:10 Chloride Cancelled 10/21/19 13:10 Carbon Dioxide 31.8 mmol/L (21-32) 10/21/19 13:10 Carbon Dioxide Cancelled 10/21/19 13:10 BUN 13 mg/dL (7-18) 10/21/19 13:10 BUN Cancelled 10/21/19 13:10 Creatinine 0.83 mg/dL (0.55-1.02) 10/21/19 13:10 Creatinine Cancelled 10/21/19 13:10 Est GFR (MDRD) Af Amer > 60 (>60) 10/21/19 13:10 Est GFR (MDRD) Af Amer Cancelled 10/21/19 13:10 Est GFR (MDRD) Non-Af > 60 (>60) 10/21/19 13:10 Est GFR (MDRD) Non-Af Cancelled 10/21/19 13:10 Glucose 100 mg/dL (65-99) H 10/21/19 13:10 Glucose Cancelled 10/21/19 13:10 Calcium 8.1 mg/dL (8.5-10.1) L 10/21/19 13:10 Calcium Cancelled 10/21/19 13:10 Corrected Calcium 9.4 mg/dL (8.5-10.1) 10/21/19 13:10 Corrected Calcium Cancelled 10/21/19 13:10 Magnesium 1.9 mg/dL (1.7-2.9) 10/21/19 13:10 Total Bilirubin 0.50 mg/dL (0.2-1.0) 10/21/19 13:10 Total Bilirubin Cancelled 10/21/19 13:10 AST 36 Units/L (15-37) 10/21/19 13:10 AST Cancelled 10/21/19 13:10 ALT 19 Units/L (12-78) 10/21/19 13:10 ALT Cancelled 10/21/19 13:10 Alkaline Phosphatase 64 Units/L (46-116) 10/21/19 13:10 Alkaline Phosphatase Cancelled 10/21/19 13:10 Creatine Kinase 76 Units/L (26-192) 10/21/19 13:10 CK-MB (CK-2) < 1.0 ng/mL (0-4.0) 10/21/19 13:10 CK/CKMB % Calc 1.3 % (<4) 10/21/19 13:10 Troponin I < 0.02 ng/mL (0-1.5) 10/21/19 13:10 Total Protein 6.1 g/dL (6.4-8.2) L 10/21/19 13:10 Total Protein Cancelled 10/21/19 13:10 Albumin 2.4 g/dL (3.4-5.0) L 10/21/19 13:10 Albumin Cancelled 10/21/19 13:10 Globulin 3.7 g/dL (2.5-4.5) 10/21/19 13:10 Globulin Cancelled 10/21/19 13:10 Albumin/Globulin Ratio 0.6 Ratio (1.1-2.1) L 10/21/19 13:10 Albumin/Globulin Ratio Cancelled 10/21/19 13:10 EKG [place]: Normal Rhythm: NSR Block: None Hypertrophy: None ST: Normal Opioid Opioid Risk Tool Age (Marquez box if 16-45): No History of Preadolescent Sexual Abuse: No Total: 0 Total Score Risk Category: Low Risk Copyright: Isaac MICHAEL predicting aberrant behaviors Diagnosis Discharge Problem: Acute type 1 respiratory failure, COVID-19, Hypokalemia
[2019-10-21] MEDS ORDERED: ROCEPHIN VIAL 2 GRAMS 2 G in NS 100 ML IV + SPIKE MINIBAG* 100 ML IV ONE (16:36)
[2019-10-21] MEDS ORDERED: KLOR-CON ONE (16:51)
[2019-10-21] MEDS ORDERED: ROCEPHIN VIAL 2 GRAMS ONE (16:52)
[2019-10-21] MEDS ORDERED: NS 100 ML IV 100 ML IV ONE (16:53)
[2019-10-21] MEDS: NS + KCL 40 MEQ/L 1,000 ML IV SCH ×2 (18:00→22:25)
[2019-10-21 19:21] VITALS: BMI 22.7
[2019-10-21] MEDS ORDERED: TYLENOL 325 MG TAB PO PRN (19:33)
[2019-10-21] MEDS ORDERED: REMDESIVIR **DO NOT USE THIS ITEM# ** 200 MG in NS 250 ML IV 250 ML IV ONE (19:35)
--- NOTE | 2019-10-21 19:47 | DR.H&P ---
H&P History & Physical for Day of: H&P Date: 10/21/19 Chief Complaint Chief Complaint: Shortness of breath Fatigue/Weakness Allergies Allergies Allergy/AdvReac Type Severity Reaction Status Date / Time Sulfa (Sulfonamide Allergy Verified 06/05/19 14:48 Antibiotics) [SULFA] History of Present Illness History of Present Illness: Pt is a 68 y/o f pmhx CVA, Afib(post ablation w/ loop recorder), Hypothyroidism, Hiatal hernia, that was recently discharged for COVID19 pneumonia(positive on 10/14) on 10/17. When she was discharged she did not require supplemental O2 and was able to ambulate without difficulty. However, over the weekend her symptoms acutely worsened and she began to have high fevers, headaches, abdominal pain, diarrhea, weakness/fatigue and shortness of breath. Her initial labs/imaging in the ED: Wbc 10.9, Hgb 10.8, Plt 95, Na 141, K 3.2, Cr 0.83, Gluc 100. AB.53/40/48/33.4/88% on RA. CXR:Increasingly severe primary right lung pneumonia and less severe left upper lobe pneumonia. Pt was started on supplemental O2 and is currently on 10L Heated High flow, IVF NS@125ml/h. Abx: Azithromycin + Rocephin, IV Decadron, Albuterol inh, IS, pneumonia protocol. Will get CRP and start patient on Remdesivir. Will carefully consider Actemra and convalescent plasma based on clinical course. Replete potassium per protocol. Plan to continue to monitor closely and follow up labs/imaging in the morning. Past Medical History Past Medical History: Anxiety, Arthritis, CVA, Depression, Hypertension, Hypothyroidism and Seizures Past Surgical History Surgical History: Hysterectomy Family History Family Medical History: Cancer Social History Alcohol Use: None Drug Use: None Medications Home Medications: Sulfa (Sulfonamide Antibiotics) [SULFA] Allergy (Verified 06/05/19 14:48) CONTINUE taking the following medications azithromycin 250 mg PO 10/21/19 [History] prednisone 40 mg PO DAILY 10/21/19 [History] Labs Result Diagrams: 10/21/19 13:10 10/21/19 13:10 Labs: Laboratory WBC 10.9 X10^3/uL (3.6-10.0) H 10/21/19 13:10 RBC 3.95 X10^6/uL (3.5-5.4) 10/21/19 13:10 Hgb 10.8 g/dL (12.0-16.0) L 10/21/19 13:10 Hct 33.3 % (36.0-47.0) L 10/21/19 13:10 MCV 84.2 fL (80.0-100.0) 10/21/19 13:10 MCH 27.2 pg (27.0-34.0) 10/21/19 13:10 MCHC 32.3 g/dL (33.0-35.0) L 10/21/19 13:10 RDW 17.3 % (11.6-16.5) H 10/21/19 13:10 Plt Count 95 X10^3/uL (150.0-450.0) L 10/21/19 13:10 Plt Count Comment Decreased (ADEQUATE) A 10/21/19 13:10 MPV 10.3 fL (7.4-11.0) 10/21/19 13:10 Neut % (Auto) 89.5 % (42.0-75.0) H 10/21/19 13:10 Lymph % (Auto) 6.8 % (21.0-51.0) L 10/21/19 13:10 [place] % (Auto) 3.5 % (0.0-13.0) 10/21/19 13:10 Eos % (Auto) 0.0 % (0.9-2.9) L 10/21/19 13:10 Baso % (Auto) 0.2 % (0.2-1.0) 10/21/19 13:10 Neut # (Auto) 9.8 x10^3/uL (2.2-4.8) H 10/21/19 13:10 Lymph # (Auto) 0.7 X10^3/uL (1.3-2.9) L 10/21/19 13:10 [place] # (Auto) 0.4 x10^3/uL (0.3-0.8) 10/21/19 13:10 Eos # (Auto) 0.0 x10^3/uL (0.0-0.2) 10/21/19 13:10 Baso # (Auto) 0.0 X10^3/uL (0.0-0.1) 10/21/19 13:10 Absolute Nucleated RBC 0.0 /100WBC 10/21/19 13:10 Giant Platelets None 10/21/19 13:10 Plt Morphology Comment Abnormal (NORMAL) A 10/21/19 13:10 RBC Morphology Abnormal (NORMAL) A 10/21/19 13:10 Hypochromasia Slight A 10/21/19 13:10 Anisocytosis 1+ A 10/21/19 13:10 Sample Site Right brachial 10/21/19 14:28 ABG pH 7.530 (7.35-7.45) H 10/21/19 14:28 ABG pCO2 40.0 mmHg (35.0-45.0) 10/21/19 14:28 ABG pO2 48.0 mmHg (80.0-100.0) L* 10/21/19 14:28 ABG HCO3 33.4 mmol/L (22-26) H* 10/21/19 14:28 ABG O2 Saturation 88.0 % (90-100) L 10/21/19 14:28 ABG Base Excess 9.8 mmol/L (-2.0-2.0) H 10/21/19 14:28 Reagan Test Na 10/21/19 14:28 A-a Gradient 102.0 mmHg 10/21/19 14:28 FiO2 28.0 10/21/19 14:28 Blood Gas Comments Hawk well aw 10/21/19 14:28 Sodium 141 mmol/L (136-145) 10/21/19 13:10 Sodium Cancelled 10/21/19 13:10 Corrected Sodium Cancelled 10/21/19 13:10 Corrected Sodium TNP 10/21/19 13:10 Potassium 3.2 mmol/L (3.5-5.1) L 10/21/19 13:10 Potassium Cancelled 10/21/19 13:10 Chloride 102 mmol/L (98-107) 10/21/19 13:10 Chloride Cancelled 10/21/19 13:10 Carbon Dioxide 31.8 mmol/L (21-32) 10/21/19 13:10 Carbon Dioxide Cancelled 10/21/19 13:10 BUN 13 mg/dL (7-18) 10/21/19 13:10 BUN Cancelled 10/21/19 13:10 Creatinine 0.83 mg/dL (0.55-1.02) 10/21/19 13:10 Creatinine Cancelled 10/21/19 13:10 Est GFR (MDRD) Af Amer > 60 (>60) 10/21/19 13:10 Est GFR (MDRD) Af Amer Cancelled 10/21/19 13:10 Est GFR (MDRD) Non-Af > 60 (>60) 10/21/19 13:10 Est GFR (MDRD) Non-Af Cancelled 10/21/19 13:10 Glucose 100 mg/dL (65-99) H 10/21/19 13:10 Glucose Cancelled 10/21/19 13:10 Calcium 8.1 mg/dL (8.5-10.1) L 10/21/19 13:10 Calcium Cancelled 10/21/19 13:10 Corrected Calcium 9.4 mg/dL (8.5-10.1) 10/21/19 13:10 Corrected Calcium Cancelled 10/21/19 13:10 Magnesium 1.9 mg/dL (1.7-2.9) 10/21/19 13:10 Total Bilirubin 0.50 mg/dL (0.2-1.0) 10/21/19 13:10 Total Bilirubin Cancelled 10/21/19 13:10 AST 36 Units/L (15-37) 10/21/19 13:10 AST Cancelled 10/21/19 13:10 ALT 19 Units/L (12-78) 10/21/19 13:10 ALT Cancelled 10/21/19 13:10 Alkaline Phosphatase 64 Units/L (46-116) 10/21/19 13:10 Alkaline Phosphatase Cancelled 10/21/19 13:10 Creatine Kinase 76 Units/L (26-192) 10/21/19 13:10 CK-MB (CK-2) < 1.0 ng/mL (0-4.0) 10/21/19 13:10 CK/CKMB % Calc 1.3 % (<4) 10/21/19 13:10 Troponin I < 0.02 ng/mL (0-1.5) 10/21/19 13:10 Total Protein 6.1 g/dL (6.4-8.2) L 10/21/19 13:10 Total Protein Cancelled 10/21/19 13:10 Albumin 2.4 g/dL (3.4-5.0) L 10/21/19 13:10 Albumin Cancelled 10/21/19 13:10 Globulin 3.7 g/dL (2.5-4.5) 10/21/19 13:10 Globulin Cancelled 10/21/19 13:10 Albumin/Globulin Ratio 0.6 Ratio (1.1-2.1) L 10/21/19 13:10 Albumin/Globulin Ratio Cancelled 10/21/19 13:10 Review of Systems Constitutional: Fever, Chills and Weakness Eyes: No Symptoms Reported ENT: Throat Pain Respiratory: Cough, Shortness of Breath and Wheezing Cardiovascular: No Symptoms Reported Gastrointestinal: Abdominal Pain and Diarrhea; denies Nausea, Vomiting and Constipation Genitourinary: No Symptoms Reported Musculoskeletal: No Symptoms Reported Skin: No Symptoms Reported Neurological: No Symptoms Reported Physical Exam Vital Signs: Temperature 100.1 F Pulse Rate [Brachial] 85 Pulse Rate 85 Respiratory Rate 29 Blood Pressure [Left Arm] 128/60 Blood Pressure 140/64 O2 Sat by Pulse Oximetry 98 Oriented: Normal Eyes: Normal Ear: Normal Nose: Normal Respiratory: Diminished Throughout and Wheezes Throughout Cardiovascular: Normal : Normal Auscultation: Bowel Sounds: Normal Palpation: Normal Tenderness: Normal Skin: Normal Musculoskeletal: Normal Psychiatric: Normal Mood Description: Calm Speech Pattern: Clear Assessment/Plan (1) Pneumonia due to COVID-19 virus: Status: Acute Plan: Remdesivir, Decadron, Supplemental O2 per Respiratory therapy, serial CXR and ABG. Pneumonia protocol, Continue to monitor. (2) Acute type 1 respiratory failure: Status: Acute (3) Hypokalemia: Status: Acute Plan: Replete per protocol Review H&P Reviewed: Yes Patient was examined?: Yes
[2019-10-21] MEDS ORDERED: ACTEMRA 400 MG in NS 100 ML IV 80 ML IV SCH (20:50)
[2019-10-21] MEDS ORDERED: TESSALON PERLES PO ONE (20:53)
[2019-10-21] MEDS ORDERED: VENTOLIN or PROAIR HFA IN SCH (21:00)
[2019-10-21] MEDS ORDERED: ROCEPHIN VIAL 2 GRAMS 2 G in NS 100 ML IV + SPIKE MINIBAG* 100 ML IV SCH (21:00)
[2019-10-21] MEDS: ELIQUIS PO SCH (21:45)
[2019-10-21] MEDS: PEPCID TAB 20 MG PO SCH (21:46)
[2019-10-21] MEDS: NEURONTIN CAP 400 MG PO SCH (21:48)
[2019-10-21] MEDS: LIORESAL PO SCH (21:48)
[2019-10-21] MEDS: LIPITOR TAB 40 MG PO SCH (21:50)
[2019-10-21] MEDS ORDERED: DECADRON INJ ONE (22:01)
[2019-10-21] MEDS: DECADRON INJ IV SCH (22:21)
[2019-10-21] MEDS ORDERED: NS 250 ML IV 250 ML IV ONE (22:39)
[2019-10-21] MEDS ORDERED: NS 100 ML IV + SPIKE MINIBAG* 100 ML IV ONE (23:09)
[2019-10-21] MEDS: KEPPRA ORAL SOLN PO SCH (23:19)
[2019-10-22] MEDS: DECADRON INJ IV SCH ×4 (01:30→17:50)
[2019-10-22] MEDS ORDERED: DECADRON INJ ONE (01:31)
[2019-10-22] MEDS: DUONEB 0.5 MG/3 MG (3 mL) NEB SCH ×6 (05:00→21:30)
[2019-10-22] MEDS: ACCUNEB 1.25 MG NEBULE NEB SCH ×2 (05:00→06:35)
[2019-10-22 05:41] LABS: ABG BASE EXCESS 7.6 mmol/L (-2.0-2.0)
[2019-10-22 05:43] LABS: ABG HCO3 32.7 mmol/L (22-26)
[2019-10-22] MEDS: NS + KCL 40 MEQ/L 1,000 ML IV SCH ×3 (06:10→23:25)
[2019-10-22] MEDS: SYNTHROID 88 mcg TAB PO SCH (06:10)
--- NOTE | 2019-10-22 07:41 | RAD ---
HISTORYCOVID 19, PNEUMONIASTUDYCHEST, 1 VIEWCOMPARISONPortable chest October 21, 2019.FINDINGSThe trachea is midline. The patient has undergone a prior lower C-spine anterior fusion. Cardiac loop recorder is seen overlying the left heart border and the anterior chest. The cardiac silhouette is unremarkable . The diffuse interstitial infiltrate greatest peripherally are unchanged on the right but of increased on the left especially the left lower lung field since yesterday's film. The bony thorax is unremarkable.IMPRESSIONStable interstitial infiltrates on the right but worsening interstitial infiltrates on the left compared to yesterdays film.Electronically signed by: SIDRA GRIGSBY (Oct 22, 2019 07:39:47)
[2019-10-22] MEDS ORDERED: IMODIUM CAP 2 MG PO ONE (08:05)
--- NOTE | 2019-10-22 08:09 | PCM.PROG ---
Progress Note Progress Note for Day of Date of Exam: 10/22/19 Subjective Subjective: Pt is a 68 y/o f pmhx CVA, Afib(post ablation w/ loop recorder), Hypothyroidism, Hiatal hernia, admitted for COVID19 pneumonia(positive on 10/14). This morning she went to use the commode and when she got back to her bed was severely short of breath with pulse Ox in low 80s. Her FiO2 was increased by RT and respiratory status improved w/ pulse Ox back up to low 90s. Labs/imaging: Wbc 7.3, Hgb 10.7, Plt 112, Na 140, K 3.4, Cr 0.62, Gluc 132. CRP 238, AB.45/47/169/32.7/100% Heated Hiflo FiO2 64%. CXR: Stable interstitial infiltrates on the right but worsening interstitial infiltrates on the left compared to yesterdays film. Pt is currently on 10L Heated High flow, will decrease IVF NS@75ml/h. D/c Rocephin, change antibiotics to Zosyn+Azithromycin, IV Decadron, Albuterol inh, IS, pneumonia protocol. She is having some loose stools, will add Imodium. CRP significantly elevated, started pt on Remdesivir and gave Actemra 400mg x1(10/20). Continue to monitor and follow up labs/imaging in the morning. Past Medical Family Social History Past Med/Fam/Surg Hx: No changes since H&P Allergies: Allergies Sulfa (Sulfonamide Antibiotics) [SULFA] Allergy (Verified 06/05/19 14:48) Review of Systems ROS: No change since H&P Vital Signs and I&O's Vital Signs: Temperature 98.6 F Pulse Rate [Brachial] 85 Pulse Rate 67 Respiratory Rate 11 Blood Pressure [Left Arm] 128/60 Blood Pressure 127/63 O2 Sat by Pulse Oximetry 89 Intake and Output: Intake & Output 10/19/19 10/20/19 10/21/19 10/22/19 23:59 23:59 23:59 23:59 Intake Total 560 / 560 1520 / 1520 Balance 560 / 560 1520 / 1520 Physical Exam Oriented: Normal Eyes: Normal Ear: Normal Nose: Normal Respiratory: Diminished, Wheezes and Rales Cardiovascular: Normal : Normal Auscultation: Bowel Sounds: Normal Tenderness: Normal Skin: Normal Musculoskeletal: Normal Psychiatric: Normal Mood Description: Calm Speech Pattern: Clear Laboratory and Diagnostics Result Diagrams: 10/22/19 08:00 10/22/19 08:00 Labs: Laboratory WBC 10.9 X10^3/uL (3.6-10.0) H 10/21/19 13:10 RBC 3.95 X10^6/uL (3.5-5.4) 10/21/19 13:10 Hgb 10.8 g/dL (12.0-16.0) L 10/21/19 13:10 Hct 33.3 % (36.0-47.0) L 10/21/19 13:10 MCV 84.2 fL (80.0-100.0) 10/21/19 13:10 MCH 27.2 pg (27.0-34.0) 10/21/19 13:10 MCHC 32.3 g/dL (33.0-35.0) L 10/21/19 13:10 RDW 17.3 % (11.6-16.5) H 10/21/19 13:10 Plt Count 95 X10^3/uL (150.0-450.0) L 10/21/19 13:10 Plt Count Comment Decreased (ADEQUATE) A 10/21/19 13:10 MPV 10.3 fL (7.4-11.0) 10/21/19 13:10 Neut % (Auto) 89.5 % (42.0-75.0) H 10/21/19 13:10 Lymph % (Auto) 6.8 % (21.0-51.0) L 10/21/19 13:10 [place] % (Auto) 3.5 % (0.0-13.0) 10/21/19 13:10 Eos % (Auto) 0.0 % (0.9-2.9) L 10/21/19 13:10 Baso % (Auto) 0.2 % (0.2-1.0) 10/21/19 13:10 Neut # (Auto) 9.8 x10^3/uL (2.2-4.8) H 10/21/19 13:10 Lymph # (Auto) 0.7 X10^3/uL (1.3-2.9) L 10/21/19 13:10 [place] # (Auto) 0.4 x10^3/uL (0.3-0.8) 10/21/19 13:10 Eos # (Auto) 0.0 x10^3/uL (0.0-0.2) 10/21/19 13:10 Baso # (Auto) 0.0 X10^3/uL (0.0-0.1) 10/21/19 13:10 Absolute Nucleated RBC 0.0 /100WBC 10/21/19 13:10 Giant Platelets None 10/21/19 13:10 Plt Morphology Comment Abnormal (NORMAL) A 10/21/19 13:10 RBC Morphology Abnormal (NORMAL) A 10/21/19 13:10 Hypochromasia Slight A 10/21/19 13:10 Anisocytosis 1+ A 10/21/19 13:10 Sample Site Rb 10/22/19 05:32 ABG pH 7.450 (7.35-7.45) 10/22/19 05:32 ABG pCO2 47.0 mmHg (35.0-45.0) H 10/22/19 05:32 ABG pO2 169.0 mmHg (80.0-100.0) H 10/22/19 05:32 ABG HCO3 32.7 mmol/L (22-26) H* 10/22/19 05:32 ABG O2 Saturation 100.0 % (90-100) 10/22/19 05:32 ABG Base Excess 7.6 mmol/L (-2.0-2.0) H 10/22/19 05:32 Reagan Test Na 10/22/19 05:32 A-a Gradient 229.0 mmHg 10/22/19 05:32 FiO2 64.0 10/22/19 05:32 Blood Gas Comments Hawk well 10/22/19 05:32 Sodium 141 mmol/L (136-145) 10/21/19 13:10 Sodium Cancelled 10/21/19 13:10 Corrected Sodium Cancelled 10/21/19 13:10 Corrected Sodium TNP 10/21/19 13:10 Potassium 3.2 mmol/L (3.5-5.1) L 10/21/19 13:10 Potassium Cancelled 10/21/19 13:10 Chloride 102 mmol/L (98-107) 10/21/19 13:10 Chloride Cancelled 10/21/19 13:10 Carbon Dioxide 31.8 mmol/L (21-32) 10/21/19 13:10 Carbon Dioxide Cancelled 10/21/19 13:10 BUN 13 mg/dL (7-18) 10/21/19 13:10 BUN Cancelled 10/21/19 13:10 Creatinine 0.83 mg/dL (0.55-1.02) 10/21/19 13:10 Creatinine Cancelled 10/21/19 13:10 Est GFR (MDRD) Af Amer > 60 (>60) 10/21/19 13:10 Est GFR (MDRD) Af Amer Cancelled 10/21/19 13:10 Est GFR (MDRD) Non-Af > 60 (>60) 10/21/19 13:10 Est GFR (MDRD) Non-Af Cancelled 10/21/19 13:10 Glucose 100 mg/dL (65-99) H 10/21/19 13:10 Glucose Cancelled 10/21/19 13:10 Calcium 8.1 mg/dL (8.5-10.1) L 10/21/19 13:10 Calcium Cancelled 10/21/19 13:10 Corrected Calcium 9.4 mg/dL (8.5-10.1) 10/21/19 13:10 Corrected Calcium Cancelled 10/21/19 13:10 Magnesium 1.9 mg/dL (1.7-2.9) 10/21/19 13:10 Total Bilirubin 0.50 mg/dL (0.2-1.0) 10/21/19 13:10 Total Bilirubin Cancelled 10/21/19 13:10 AST 36 Units/L (15-37) 10/21/19 13:10 AST Cancelled 10/21/19 13:10 ALT 19 Units/L (12-78) 10/21/19 13:10 ALT Cancelled 10/21/19 13:10 Alkaline Phosphatase 64 Units/L (46-116) 10/21/19 13:10 Alkaline Phosphatase Cancelled 10/21/19 13:10 Creatine Kinase 76 Units/L (26-192) 10/21/19 13:10 CK-MB (CK-2) < 1.0 ng/mL (0-4.0) 10/21/19 13:10 CK/CKMB % Calc 1.3 % (<4) 10/21/19 13:10 Troponin I < 0.02 ng/mL (0-1.5) 10/21/19 13:10 C-Reactive Protein 197.60 mg/L (0-3.0) H 10/21/19 13:10 Total Protein 6.1 g/dL (6.4-8.2) L 10/21/19 13:10 Total Protein Cancelled 10/21/19 13:10 Albumin 2.4 g/dL (3.4-5.0) L 10/21/19 13:10 Albumin Cancelled 10/21/19 13:10 Globulin 3.7 g/dL (2.5-4.5) 10/21/19 13:10 Globulin Cancelled 10/21/19 13:10 Albumin/Globulin Ratio 0.6 Ratio (1.1-2.1) L 10/21/19 13:10 Albumin/Globulin Ratio Cancelled 10/21/19 13:10 Plan (1) Pneumonia due to COVID-19 virus: Status: Inactive Plan: Remdesivir, Decadron, Supplemental O2 per Respiratory therapy, serial CXR and ABG. Actemra 400mg x1(10/20) Pneumonia protocol, Continue to monitor. (2) Acute type 1 respiratory failure: Status: Acute (3) Hypokalemia: Status: Acute Plan: Replete per protocol
[2019-10-22 08:23] LABS: BASOPHILS % (AUTO) 0.1 % (0.2-1.0); HEMATOCRIT 32.7 % (36.0-47.0); HEMOGLOBIN 10.7 g/dL (12.0-16.0); LYMPHOCYTES # (AUTO) 0.4 X10^3/uL (1.3-2.9); LYMPHOCYTES % (AUTO) 5.4 % (21.0-51.0); MEAN CORPUSCULAR HEMOGLOBIN 27.3 pg (27.0-34.0); MEAN CORPUSCULAR HGB CONC 32.7 g/dL (33.0-35.0); MEAN CORPUSCULAR VOLUME 83.6 fL (80.0-100.0); MEAN PLATELET VOLUME 9.6 fL (7.4-11.0); MONOCYTES # (AUTO) 0.1 x10^3/uL (0.3-0.8); NEUTROPHILS # (AUTO) 6.8 x10^3/uL (2.2-4.8); NEUTROPHILS % (AUTO) 92.5 % (42.0-75.0); PLATELET COUNT 112 X10^3/uL (150.0-450.0); RED BLOOD COUNT 3.92 X10^6/uL (3.5-5.4); RED CELL DISTRIBUTION WIDTH 17.6 % (11.6-16.5); WHITE BLOOD COUNT 7.3 X10^3/uL (3.6-10.0)
[2019-10-22 08:33] LABS: ALANINE AMINOTRANSFERASE 19 Units/L (12-78); ALBUMIN 2.1 g/dL (3.4-5.0); ALKALINE PHOSPHATASE 64 Units/L (46-116); ASPARTATE AMINO TRANSFERASE 30 Units/L (15-37); BLOOD UREA NITROGEN 13 mg/dL (7-18); CALCIUM 8.3 mg/dL (8.5-10.1); CARBON DIOXIDE 27.4 mmol/L (21-32); CHLORIDE 103 mmol/L (98-107); COR CA(FOR HYPOALB) 9.8 mg/dL (8.5-10.1); COR NA(FOR HYPERGLY) 141 mmol/L (136-145); CREATININE 0.62 mg/dL (0.55-1.02); MAGNESIUM 1.9 mg/dL (1.7-2.9); SODIUM 140 mmol/L (136-145); eGFR NON BLACK RACES > 60 (>60)
[2019-10-22 08:52] LABS: PLATELET MORPHOLOGY COMMENT NORMAL (NORMAL)
[2019-10-22] MEDS: ELIQUIS PO SCH ×2 (09:01→20:45)
[2019-10-22] MEDS: ZOSYN VIAL 3.375 GRAMS 3.375 G in NS 100 ML IV + SPIKE MINIBAG* 100 ML IV SCH ×3 (09:01→21:45)
[2019-10-22] MEDS: KEPPRA ORAL SOLN PO SCH ×2 (09:02→20:45)
[2019-10-22] MEDS: PROzac PO SCH (09:02)
[2019-10-22] MEDS: PEPCID TAB 20 MG PO SCH ×2 (09:02→20:45)
[2019-10-22] MEDS: VITAMIN C PO SCH (09:03)
[2019-10-22] MEDS: SINGULAIR TAB 10 MG PO SCH (09:03)
[2019-10-22] MEDS: ZITHROMAX TAB 250 MG PO SCH (09:03)
[2019-10-22] MEDS: IMODIUM CAP 2 MG PO PRN (17:55)
[2019-10-22] MEDS: LIPITOR TAB 40 MG PO SCH (20:45)
[2019-10-22] MEDS: NEURONTIN CAP 400 MG PO SCH (20:45)
[2019-10-22] MEDS: LIORESAL PO SCH (20:45)
[2019-10-22] MEDS ORDERED: REMDESIVIR **DO NOT USE THIS ITEM# ** 100 MG in NS 250 ML IV 250 ML IV SCH (21:00)
[2019-10-23] MEDS: DECADRON INJ IV SCH ×4 (01:28→18:39)
[2019-10-23] MEDS: DUONEB 0.5 MG/3 MG (3 mL) NEB SCH ×6 (05:00→20:30)
[2019-10-23 05:30] LABS: BASOPHILS % (AUTO) 0.1 % (0.2-1.0); HEMATOCRIT 28.8 % (36.0-47.0); HEMOGLOBIN 9.4 g/dL (12.0-16.0); LYMPHOCYTES # (AUTO) 0.5 X10^3/uL (1.3-2.9); MEAN CORPUSCULAR HEMOGLOBIN 27.5 pg (27.0-34.0); MEAN CORPUSCULAR HGB CONC 32.7 g/dL (33.0-35.0); MEAN CORPUSCULAR VOLUME 84.2 fL (80.0-100.0); MEAN PLATELET VOLUME 9.6 fL (7.4-11.0); MONOCYTES # (AUTO) 0.6 x10^3/uL (0.3-0.8); MONOCYTES % (AUTO) 6.2 % (0.0-13.0); NEUTROPHILS # (AUTO) 8.4 x10^3/uL (2.2-4.8); NEUTROPHILS % (AUTO) 88.7 % (42.0-75.0); PLATELET COUNT 116 X10^3/uL (150.0-450.0); RED BLOOD COUNT 3.42 X10^6/uL (3.5-5.4); RED CELL DISTRIBUTION WIDTH 17.2 % (11.6-16.5); WHITE BLOOD COUNT 9.4 X10^3/uL (3.6-10.0)
[2019-10-23 05:53] LABS: ALANINE AMINOTRANSFERASE 19 Units/L (12-78); ALBUMIN 1.9 g/dL (3.4-5.0); ALKALINE PHOSPHATASE 55 Units/L (46-116); ASPARTATE AMINO TRANSFERASE 25 Units/L (15-37); BLOOD UREA NITROGEN 14 mg/dL (7-18); CARBON DIOXIDE 28.8 mmol/L (21-32); COR CA(FOR HYPOALB) 9.7 mg/dL (8.5-10.1); CREATININE 0.54 mg/dL (0.55-1.02); MAGNESIUM 1.9 mg/dL (1.7-2.9); TOTAL PROTEIN 5.4 g/dL (6.4-8.2); eGFR NON BLACK RACES > 60 (>60)
--- NOTE | 2019-10-23 05:56 | RAD ---
STUDY: CHEST, 1 VIEWCOMPARISON: October 22, 2019HISTORY: Shortness of breathFINDINGS:There is persistent diffuse alveolar airspace disease throughout the right and left lung unchanged from the prior exam. Cardiomediastinal contour is stable. No pleural effusion or pneumothorax is seen.IMPRESSION:There is no significant change from prior studyElectronically signed by: Vega Kumar (Oct 23, 2019 05:54:51)
[2019-10-23] MEDS: ZOSYN VIAL 3.375 GRAMS 3.375 G in NS 100 ML IV + SPIKE MINIBAG* 100 ML IV SCH ×3 (06:02→21:09)
[2019-10-23] MEDS: SYNTHROID 88 mcg TAB PO SCH (06:03)
[2019-10-23] MEDS: NS + KCL 40 MEQ/L 1,000 ML IV SCH ×3 (06:20→23:24)
[2019-10-23 06:39] LABS: CHLORIDE 107 mmol/L (98-107); COR NA(FOR HYPERGLY) 144 mmol/L (136-145); SODIUM 143 mmol/L (136-145)
[2019-10-23] MEDS: VITAMIN C PO SCH (08:42)
[2019-10-23] MEDS: ZITHROMAX TAB 250 MG PO SCH (08:42)
[2019-10-23] MEDS: ELIQUIS PO SCH ×2 (08:42→21:09)
[2019-10-23] MEDS: PROzac PO SCH (08:43)
[2019-10-23] MEDS: PEPCID TAB 20 MG PO SCH ×2 (08:43→21:09)
[2019-10-23] MEDS: SINGULAIR TAB 10 MG PO SCH (08:43)
[2019-10-23] MEDS: KEPPRA ORAL SOLN PO SCH ×2 (09:08→21:09)
--- NOTE | 2019-10-23 09:24 | PCM.PROG ---
Progress Note Progress Note for Day of Date of Exam: 10/23/19 Subjective Subjective: Pt is a 68 y/o f pmhx CVA, Afib(post ablation w/ loop recorder), Hypothyroidism, Hiatal hernia, admitted for COVID19 pneumonia(positive on 10/14). This morning she laying in bed, reports no change from yesterday, feeling weak and short of breath. Labs/imaging: Wbc 9.4, Hgb 9.4, Plt 116, Na 143, K 3.4, Cr 0.54, Gluc 154. CRP 238>128, AB.52/37/55/30.2/91% Heated Hiflo FiO2 82%. CXR: no significant change from prior. Pt is currently on 10L Heated High flow, IVF NS@75ml/h. Continue Remdesivir(10/20), received Actemra 400mg(10/20). Abx: Zosyn+Azithromycin, IV Decadron 4mg q6h, Albuterol inh, IS, pneumonia protocol. Continue to monitor and follow up labs/imaging in the morning. Past Medical Family Social History Past Med/Fam/Surg Hx: No changes since H&P Allergies: Allergies Sulfa (Sulfonamide Antibiotics) [SULFA] Allergy (Verified 06/05/19 14:48) Review of Systems ROS: No change since H&P Vital Signs and I&O's Vital Signs: Temperature 98.2 F Pulse Rate [Brachial] 85 Pulse Rate 80 Respiratory Rate 25 Blood Pressure [Left Arm] 128/60 Blood Pressure 127/60 O2 Sat by Pulse Oximetry 90 Intake and Output: Intake & Output 10/20/19 10/21/19 10/22/19 10/23/19 23:59 23:59 23:59 23:59 Intake Total 560 / 560 3730 / 3730 747 / 747 Balance 560 / 560 3730 / 3730 747 / 747 Physical Exam Oriented: Normal Eyes: Normal Ear: Normal Nose: Normal Respiratory: Diminished, Wheezes and Rales Cardiovascular: Normal : Normal Auscultation: Bowel Sounds: Normal Tenderness: Normal Skin: Normal Musculoskeletal: Normal Psychiatric: Normal Mood Description: Calm Speech Pattern: Clear and Appropriate Laboratory and Diagnostics Result Diagrams: 10/23/19 05:00 10/23/19 05:00 Labs: 10/21/19 17:40 Blood Blood Culture - Preliminary 10/21/19 19:05 Blood Blood Culture - Preliminary Laboratory WBC 9.4 X10^3/uL (3.6-10.0) 10/23/19 05:00 RBC 3.42 X10^6/uL (3.5-5.4) L 10/23/19 05:00 Hgb 9.4 g/dL (12.0-16.0) L 10/23/19 05:00 Hct 28.8 % (36.0-47.0) L 10/23/19 05:00 MCV 84.2 fL (80.0-100.0) 10/23/19 05:00 MCH 27.5 pg (27.0-34.0) 10/23/19 05:00 MCHC 32.7 g/dL (33.0-35.0) L 10/23/19 05:00 RDW 17.2 % (11.6-16.5) H 10/23/19 05:00 Plt Count 116 X10^3/uL (150.0-450.0) L 10/23/19 05:00 Plt Count Comment Decreased (ADEQUATE) A 10/22/19 08:00 MPV 9.6 fL (7.4-11.0) 10/23/19 05:00 Neut % (Auto) 88.7 % (42.0-75.0) H 10/23/19 05:00 Lymph % (Auto) 5.0 % (21.0-51.0) L 10/23/19 05:00 [place] % (Auto) 6.2 % (0.0-13.0) 10/23/19 05:00 Eos % (Auto) 0.0 % (0.9-2.9) L 10/23/19 05:00 Baso % (Auto) 0.1 % (0.2-1.0) L 10/23/19 05:00 Neut # (Auto) 8.4 x10^3/uL (2.2-4.8) H 10/23/19 05:00 Lymph # (Auto) 0.5 X10^3/uL (1.3-2.9) L 10/23/19 05:00 [place] # (Auto) 0.6 x10^3/uL (0.3-0.8) 10/23/19 05:00 Eos # (Auto) 0.0 x10^3/uL (0.0-0.2) 10/23/19 05:00 Baso # (Auto) 0.0 X10^3/uL (0.0-0.1) 10/23/19 05:00 Absolute Nucleated RBC 0.0 /100WBC 10/23/19 05:00 Total Counted 100 10/22/19 08:00 Neutrophils % (Manual) 93 % (39-76) H 10/22/19 08:00 Lymphocytes % (Manual) 4 % (13-43) L 10/22/19 08:00 Monocytes % (Manual) 3 % (4-9) L 10/22/19 08:00 Giant Platelets None 10/21/19 13:10 Plt Morphology Comment Normal (NORMAL) 10/22/19 08:00 RBC Morphology Normal (NORMAL) 10/22/19 08:00 Hypochromasia Slight A 10/21/19 13:10 Anisocytosis 1+ A 10/21/19 13:10 Sample Site Rb 10/22/19 05:32 ABG pH 7.450 (7.35-7.45) 10/22/19 05:32 ABG pCO2 47.0 mmHg (35.0-45.0) H 10/22/19 05:32 ABG pO2 169.0 mmHg (80.0-100.0) H 10/22/19 05:32 ABG HCO3 32.7 mmol/L (22-26) H* 10/22/19 05:32 ABG O2 Saturation 100.0 % (90-100) 10/22/19 05:32 ABG Base Excess 7.6 mmol/L (-2.0-2.0) H 10/22/19 05:32 Reagan Test Na 10/22/19 05:32 A-a Gradient 229.0 mmHg 10/22/19 05:32 FiO2 64.0 10/22/19 05:32 Blood Gas Comments Hawk well 10/22/19 05:32 Sodium 143 mmol/L (136-145) 10/23/19 05:00 Corrected Sodium 144 mmol/L (136-145) 10/23/19 05:00 Potassium 3.4 mmol/L (3.5-5.1) L 10/23/19 05:00 Chloride 107 mmol/L (98-107) 10/23/19 05:00 Carbon Dioxide 28.8 mmol/L (21-32) 10/23/19 05:00 BUN 14 mg/dL (7-18) 10/23/19 05:00 Creatinine 0.54 mg/dL (0.55-1.02) L 10/23/19 05:00 Est GFR (MDRD) Af Amer > 60 (>60) 10/23/19 05:00 Est GFR (MDRD) Non-Af > 60 (>60) 10/23/19 05:00 Glucose 154 mg/dL (65-99) H 10/23/19 05:00 Calcium 8.0 mg/dL (8.5-10.1) L 10/23/19 05:00 Corrected Calcium 9.7 mg/dL (8.5-10.1) 10/23/19 05:00 Phosphorus 4.0 mg/dL (2.6-4.7) 10/22/19 08:00 Magnesium 1.9 mg/dL (1.7-2.9) 10/23/19 05:00 Total Bilirubin 0.20 mg/dL (0.2-1.0) 10/23/19 05:00 AST 25 Units/L (15-37) 10/23/19 05:00 ALT 19 Units/L (12-78) 10/23/19 05:00 Alkaline Phosphatase 55 Units/L (46-116) 10/23/19 05:00 Creatine Kinase 76 Units/L (26-192) 10/21/19 13:10 CK-MB (CK-2) < 1.0 ng/mL (0-4.0) 10/21/19 13:10 CK/CKMB % Calc 1.3 % (<4) 10/21/19 13:10 Troponin I < 0.02 ng/mL (0-1.5) 10/21/19 13:10 C-Reactive Protein 128.20 mg/L (0-3.0) H 10/23/19 05:00 Total Protein 5.4 g/dL (6.4-8.2) L 10/23/19 05:00 Albumin 1.9 g/dL (3.4-5.0) L 10/23/19 05:00 Globulin 3.5 g/dL (2.5-4.5) 10/23/19 05:00 Albumin/Globulin Ratio 0.5 Ratio (1.1-2.1) L 10/23/19 05:00 Plan (1) Pneumonia due to COVID-19 virus: Status: Inactive Plan: Remdesivir(10/20), Decadron, Supplemental O2 per Respiratory therapy, serial CXR and ABG. Actemra 400mg x1(10/20) Pneumonia protocol, Continue to monitor. (2) Acute type 1 respiratory failure: Status: Acute (3) Hypokalemia: Status: Acute Plan: Replete per protocol
[2019-10-23 09:49] LABS: ABG HCO3 30.2 mmol/L (22-26)
[2019-10-23] MEDS: REMDESIVIR **DO NOT USE THIS ITEM# ** 100 MG in NS 250 ML IV 250 ML IV SCH (10:04)
[2019-10-23] MEDS: LIPITOR TAB 40 MG PO SCH (21:09)
[2019-10-23] MEDS: LIORESAL PO SCH (21:09)
[2019-10-23] MEDS: NEURONTIN CAP 400 MG PO SCH (21:09)
[2019-10-24] MEDS: DUONEB 0.5 MG/3 MG (3 mL) NEB SCH ×6 (00:45→21:30)
[2019-10-24] MEDS: DECADRON INJ IV SCH ×2 (01:35→06:14)
[2019-10-24 04:56] LABS: BASOPHILS % (AUTO) 0.1 % (0.2-1.0); HEMATOCRIT 29.1 % (36.0-47.0); HEMOGLOBIN 9.3 g/dL (12.0-16.0); LYMPHOCYTES # (AUTO) 0.5 X10^3/uL (1.3-2.9); LYMPHOCYTES % (AUTO) 3.3 % (21.0-51.0); MEAN CORPUSCULAR HGB CONC 32.1 g/dL (33.0-35.0); MEAN CORPUSCULAR VOLUME 84.2 fL (80.0-100.0); MEAN PLATELET VOLUME 9.2 fL (7.4-11.0); MONOCYTES # (AUTO) 0.7 x10^3/uL (0.3-0.8); MONOCYTES % (AUTO) 4.8 % (0.0-13.0); NEUTROPHILS # (AUTO) 13.6 x10^3/uL (2.2-4.8); NEUTROPHILS % (AUTO) 91.8 % (42.0-75.0); PLATELET COUNT 138 X10^3/uL (150.0-450.0); RED BLOOD COUNT 3.45 X10^6/uL (3.5-5.4); WHITE BLOOD COUNT 14.8 X10^3/uL (3.6-10.0)
[2019-10-24 05:08] LABS: ALANINE AMINOTRANSFERASE 20 Units/L (12-78); ALKALINE PHOSPHATASE 63 Units/L (46-116); ASPARTATE AMINO TRANSFERASE 25 Units/L (15-37); BLOOD UREA NITROGEN 16 mg/dL (7-18); CHLORIDE 107 mmol/L (98-107); COR CA(FOR HYPOALB) 9.6 mg/dL (8.5-10.1); COR NA(FOR HYPERGLY) 143 mmol/L (136-145); CREATININE 0.62 mg/dL (0.55-1.02); SODIUM 142 mmol/L (136-145); TOTAL PROTEIN 5.2 g/dL (6.4-8.2); eGFR NON BLACK RACES > 60 (>60)
[2019-10-24] MEDS: ZOSYN VIAL 3.375 GRAMS 3.375 G in NS 100 ML IV + SPIKE MINIBAG* 100 ML IV SCH ×3 (06:14→22:40)
[2019-10-24] MEDS: SYNTHROID 88 mcg TAB PO SCH (06:15)
[2019-10-24] MEDS: NS + KCL 40 MEQ/L 1,000 ML IV SCH ×3 (06:15→22:40)
[2019-10-24 06:20] LABS: HYPOCHROMASIA SLIGHT; PLATELET MORPHOLOGY COMMENT NORMAL (NORMAL)
[2019-10-24] MEDS: PEPCID TAB 20 MG PO SCH ×2 (08:47→20:35)
[2019-10-24] MEDS: SINGULAIR TAB 10 MG PO SCH (08:48)
[2019-10-24] MEDS: ELIQUIS PO SCH ×2 (08:48→20:35)
[2019-10-24] MEDS: PROzac PO SCH (08:48)
[2019-10-24] MEDS: ZITHROMAX TAB 250 MG PO SCH (08:48)
[2019-10-24] MEDS: VITAMIN C PO SCH (08:49)
[2019-10-24] MEDS: KEPPRA ORAL SOLN PO SCH ×2 (09:06→21:28)
[2019-10-24] MEDS: IMODIUM CAP 2 MG PO PRN ×3 (09:20→20:35)
--- NOTE | 2019-10-24 10:08 | PCM.PROG ---
Progress Note Progress Note for Day of Date of Exam: 10/24/19 Subjective Subjective: Pt is a 68 y/o f pmhx CVA, Afib(post ablation w/ loop recorder), Hypothyroidism, Hiatal hernia, admitted for COVID19 pneumonia(positive on 10/14). Pt is short of breath this morning after just returning from the bathroom. Nursing reports occurs with any physical activity and will have O2 drop to 80s and gradually return to >90% with rest. Labs/imaging: Wbc 14.8, Hgb 9.3, Plt 138, Na 142, K 3.9, Cr 0.62, Gluc 130. CRP 63, BloodCX:NGTD. Pt is on 10L Heated High flow, IVF NS@75ml/h. Continue Remdesivir(10/20), received Actemra 400mg(10/20). Abx: Zosyn, will d/c azithromycin after having >5 days of treatment, IV Decadron 4mg q6h> change to daily dosing, Albuterol inh, IS, pneumonia protocol. Continue to monitor and follow up labs/imaging in the morning. Past Medical Family Social History Past Med/Fam/Surg Hx: No changes since H&P Allergies: Allergies Sulfa (Sulfonamide Antibiotics) [SULFA] Allergy (Verified 06/05/19 14:48) Review of Systems ROS: No change since H&P Vital Signs and I&O's Vital Signs: Temperature 98.7 F Pulse Rate [Brachial] 85 Pulse Rate 87 Respiratory Rate 25 Blood Pressure [Left Arm] 128/60 Blood Pressure 121/59 O2 Sat by Pulse Oximetry 91 Intake and Output: Intake & Output 10/21/19 10/22/19 10/23/19 10/24/19 23:59 23:59 23:59 23:59 Intake Total 560 / 560 3730 / 3730 2382 / 2382 700 / 700 Balance 560 / 560 3730 / 3730 2382 / 2382 700 / 700 Physical Exam Oriented: Normal Eyes: Normal Ear: Normal Nose: Normal Respiratory: Diminished and Rales Cardiovascular: Normal : Normal Auscultation: Bowel Sounds: Normal Tenderness: Normal Skin: Normal Musculoskeletal: Normal Psychiatric: Normal Mood Description: Calm Speech Pattern: Clear and Appropriate Laboratory and Diagnostics Result Diagrams: 10/24/19 04:35 10/24/19 04:35 Labs: 10/21/19 17:40 Blood Blood Culture - Preliminary 10/21/19 19:05 Blood Blood Culture - Preliminary Laboratory WBC 14.8 X10^3/uL (3.6-10.0) H 10/24/19 04:35 RBC 3.45 X10^6/uL (3.5-5.4) L 10/24/19 04:35 Hgb 9.3 g/dL (12.0-16.0) L 10/24/19 04:35 Hct 29.1 % (36.0-47.0) L 10/24/19 04:35 MCV 84.2 fL (80.0-100.0) 10/24/19 04:35 MCH 27.0 pg (27.0-34.0) 10/24/19 04:35 MCHC 32.1 g/dL (33.0-35.0) L 10/24/19 04:35 RDW 17.0 % (11.6-16.5) H 10/24/19 04:35 Plt Count 138 X10^3/uL (150.0-450.0) L 10/24/19 04:35 Plt Count Comment Adequate (ADEQUATE) 10/24/19 04:35 MPV 9.2 fL (7.4-11.0) 10/24/19 04:35 Neut % (Auto) 91.8 % (42.0-75.0) H 10/24/19 04:35 Lymph % (Auto) 3.3 % (21.0-51.0) L 10/24/19 04:35 [place] % (Auto) 4.8 % (0.0-13.0) 10/24/19 04:35 Eos % (Auto) 0.0 % (0.9-2.9) L 10/24/19 04:35 Baso % (Auto) 0.1 % (0.2-1.0) L 10/24/19 04:35 Neut # (Auto) 13.6 x10^3/uL (2.2-4.8) H 10/24/19 04:35 Lymph # (Auto) 0.5 X10^3/uL (1.3-2.9) L 10/24/19 04:35 [place] # (Auto) 0.7 x10^3/uL (0.3-0.8) 10/24/19 04:35 Eos # (Auto) 0.0 x10^3/uL (0.0-0.2) 10/24/19 04:35 Baso # (Auto) 0.0 X10^3/uL (0.0-0.1) 10/24/19 04:35 Absolute Nucleated RBC 0.1 /100WBC 10/24/19 04:35 Total Counted 100 10/24/19 04:35 Neutrophils % (Manual) 91 % (39-76) H 10/24/19 04:35 Lymphocytes % (Manual) 6 % (13-43) L 10/24/19 04:35 Monocytes % (Manual) 3 % (4-9) L 10/24/19 04:35 Giant Platelets None 10/21/19 13:10 Plt Morphology Comment Normal (NORMAL) 10/24/19 04:35 RBC Morphology Abnormal (NORMAL) A 10/24/19 04:35 Hypochromasia Slight A 10/24/19 04:35 Anisocytosis 1+ A 10/21/19 13:10 Sample Site Rb 10/23/19 09:40 ABG pH 7.520 (7.35-7.45) H 10/23/19 09:40 ABG pCO2 37.0 mmHg (35.0-45.0) 10/23/19 09:40 ABG pO2 55.0 mmHg (80.0-100.0) L 10/23/19 09:40 ABG HCO3 30.2 mmol/L (22-26) H* 10/23/19 09:40 ABG O2 Saturation 91.0 % (90-100) 10/23/19 09:40 ABG Base Excess 7.0 mmol/L (-2.0-2.0) H 10/23/19 09:40 Reagan Test Na 10/23/19 09:40 A-a Gradient 483.0 mmHg 10/23/19 09:40 FiO2 82.0 10/23/19 09:40 Blood Gas Comments Pt negro well. cdn 10/23/19 09:40 Sodium 142 mmol/L (136-145) 10/24/19 04:35 Corrected Sodium 143 mmol/L (136-145) 10/24/19 04:35 Potassium 3.9 mmol/L (3.5-5.1) 10/24/19 04:35 Chloride 107 mmol/L (98-107) 10/24/19 04:35 Carbon Dioxide 29.0 mmol/L (21-32) 10/24/19 04:35 BUN 16 mg/dL (7-18) 10/24/19 04:35 Creatinine 0.62 mg/dL (0.55-1.02) 10/24/19 04:35 Est GFR (MDRD) Af Amer > 60 (>60) 10/24/19 04:35 Est GFR (MDRD) Non-Af > 60 (>60) 10/24/19 04:35 Glucose 130 mg/dL (65-99) H 10/24/19 04:35 Calcium 8.0 mg/dL (8.5-10.1) L 10/24/19 04:35 Corrected Calcium 9.6 mg/dL (8.5-10.1) 10/24/19 04:35 Phosphorus 4.0 mg/dL (2.6-4.7) 10/22/19 08:00 Magnesium 1.9 mg/dL (1.7-2.9) 10/23/19 05:00 Total Bilirubin 0.20 mg/dL (0.2-1.0) 10/24/19 04:35 AST 25 Units/L (15-37) 10/24/19 04:35 ALT 20 Units/L (12-78) 10/24/19 04:35 Alkaline Phosphatase 63 Units/L (46-116) 10/24/19 04:35 Creatine Kinase 76 Units/L (26-192) 10/21/19 13:10 CK-MB (CK-2) < 1.0 ng/mL (0-4.0) 10/21/19 13:10 CK/CKMB % Calc 1.3 % (<4) 10/21/19 13:10 Troponin I < 0.02 ng/mL (0-1.5) 10/21/19 13:10 C-Reactive Protein 63.00 mg/L (0-3.0) H 10/24/19 04:35 Total Protein 5.2 g/dL (6.4-8.2) L 10/24/19 04:35 Albumin 2.0 g/dL (3.4-5.0) L 10/24/19 04:35 Globulin 3.2 g/dL (2.5-4.5) 10/24/19 04:35 Albumin/Globulin Ratio 0.6 Ratio (1.1-2.1) L 10/24/19 04:35 Plan (1) Pneumonia due to COVID-19 virus: Status: Inactive Plan: Remdesivir(10/20), Decadron, Supplemental O2 per Respiratory therapy, Actemra 400mg x1(10/20) Pneumonia protocol, Continue to monitor. (2) Acute type 1 respiratory failure: Status: Acute (3) Hypokalemia: Status: Acute Plan: Replete per protocol
[2019-10-24] MEDS: REMDESIVIR **DO NOT USE THIS ITEM# ** 100 MG in NS 250 ML IV 250 ML IV SCH (10:18)
[2019-10-24] MEDS: NEURONTIN CAP 400 MG PO SCH (20:35)
[2019-10-24] MEDS: LIORESAL PO SCH (20:35)
[2019-10-24] MEDS: LIPITOR TAB 40 MG PO SCH (20:35)
[2019-10-24 23:32] LABS: BILIRUBIN,URINE NEGATIVE (NEGATIVE); BLOOD/HEMOGLOBIN,URINE NEGATIVE (NEGATIVE); GLUCOSE, URINE NEGATIVE (NEGATIVE); KETONES,URINE NEGATIVE (NEGATIVE); LEUKOCYTE ESTERASE ,URINE NEGATIVE (NEGATIVE); NITRITES,URINE NEGATIVE (NEGATIVE); PROTEIN,URINE 1+ (NEGATIVE); UROBILINOGEN,URINE NORMAL (NORMAL)
[2019-10-24 23:36] LABS: APPEARANCE,URINE CLEAR (CLEAR); BACTERIA,URINE NEGATIVE /HPF (NEGATIVE); COLOR,URINE YELLOW (YELLOW); RBC,URINE NONE SEEN /HPF (0-3); SQUAMOUS EPITHELIAL CELL,UR RARE /HPF (NEGATIVE)
[2019-10-25] MEDS: DUONEB 0.5 MG/3 MG (3 mL) NEB SCH ×6 (05:30→21:30)
[2019-10-25 05:46] LABS: BASOPHILS % (AUTO) 0 % (0.2-1.0); HEMATOCRIT 30.1 % (36.0-47.0); HEMOGLOBIN 9.9 g/dL (12.0-16.0); LYMPHOCYTES % (AUTO) 7.8 % (21.0-51.0); MEAN CORPUSCULAR HEMOGLOBIN 27.4 pg (27.0-34.0); MEAN CORPUSCULAR HGB CONC 32.8 g/dL (33.0-35.0); MEAN CORPUSCULAR VOLUME 83.4 fL (80.0-100.0); MONOCYTES # (AUTO) 0.4 x10^3/uL (0.3-0.8); MONOCYTES % (AUTO) 3.3 % (0.0-13.0); NEUTROPHILS # (AUTO) 11.8 x10^3/uL (2.2-4.8); NEUTROPHILS % (AUTO) 88.9 % (42.0-75.0); PLATELET COUNT 103 X10^3/uL (150.0-450.0); RED BLOOD COUNT 3.61 X10^6/uL (3.5-5.4); RED CELL DISTRIBUTION WIDTH 17.2 % (11.6-16.5); WHITE BLOOD COUNT 13.2 X10^3/uL (3.6-10.0)
[2019-10-25 06:00] LABS: ALANINE AMINOTRANSFERASE 17 Units/L (12-78); ALKALINE PHOSPHATASE 95 Units/L (46-116); ASPARTATE AMINO TRANSFERASE 40 Units/L (15-37); BLOOD UREA NITROGEN 13 mg/dL (7-18); CALCIUM 7.9 mg/dL (8.5-10.1); CARBON DIOXIDE 27.8 mmol/L (21-32); CHLORIDE 106 mmol/L (98-107); COR CA(FOR HYPOALB) 9.5 mg/dL (8.5-10.1); CREATININE 0.67 mg/dL (0.55-1.02); SODIUM 140 mmol/L (136-145); TOTAL PROTEIN 5.2 g/dL (6.4-8.2); eGFR NON BLACK RACES > 60 (>60)
[2019-10-25 06:20] LABS: BAND NEUTROPHILS % 1 % (0-10)
[2019-10-25 06:21] LABS: ANISOCYTOSIS SLIGHT; HYPOCHROMASIA SLIGHT; PLATELET MORPHOLOGY COMMENT NORMAL (NORMAL)
[2019-10-25 06:22] LABS: BURR CELLS PRESENT; OVALOCYTES PRESENT
[2019-10-25] MEDS: ZOSYN VIAL 3.375 GRAMS 3.375 G in NS 100 ML IV + SPIKE MINIBAG* 100 ML IV SCH ×3 (06:51→22:36)
[2019-10-25] MEDS: NS + KCL 40 MEQ/L 1,000 ML IV SCH ×3 (06:52→22:36)
[2019-10-25] MEDS: SYNTHROID 88 mcg TAB PO SCH (06:52)
[2019-10-25] MEDS ORDERED: DECADRON INJ IV SCH (09:00)
[2019-10-25] MEDS ORDERED: ACTEMRA 400 MG in NS 100 ML IV 80 ML IV SCH (09:03)
--- NOTE | 2019-10-25 09:08 | PCM.PROG ---
Progress Note Progress Note for Day of Date of Exam: 10/25/19 Subjective Subjective: Pt is a 68 y/o f pmhx CVA, Afib(post ablation w/ loop recorder), Hypothyroidism, Hiatal hernia, admitted for COVID19 pneumonia(positive on 10/14). Pt is laying in bed this morning, reports sleeping well overnight after having mckeon placed. Labs/imaging: Wbc 13.2, Hgb 9.9, Plt 103, Na 140, K 4.3, Cr 0.67, Gluc 86. CRP 63>86, BloodCX:NGTD. Pt is on 15L Heated High flow w/ FiO2 66%, IVF NS@75ml/h. Continue Remdesivir(10/20), received Actemra 400mg(10/20) and will order another dose today(10/24). Abx:Zosyn(completed 5d of azithromycin). IV Decadron 4mg BID, Duonebs/Albuterol inh, IS, pneumonia protocol. Continue to monitor and follow up labs/imaging in the morning. Past Medical Family Social History Past Med/Fam/Surg Hx: No changes since H&P Allergies: Allergies Sulfa (Sulfonamide Antibiotics) [SULFA] Allergy (Verified 06/05/19 14:48) Review of Systems ROS: No change since H&P Vital Signs and I&O's Vital Signs: Temperature 98.6 F Pulse Rate [Brachial] 85 Pulse Rate 92 Respiratory Rate 34 Blood Pressure [Left Arm] 128/60 Blood Pressure 134/61 O2 Sat by Pulse Oximetry 100 Intake and Output: Intake & Output 10/22/19 10/23/19 10/24/19 10/25/19 23:59 23:59 23:59 23:59 Intake Total 3730 / 3730 2382 / 2382 1683 / 1683 675 / 675 Output Total 65 / 65 350 / 350 Balance 3730 / 3730 2382 / 2382 1618 / 1618 325 / 325 Physical Exam Oriented: Normal Eyes: Normal Ear: Normal Nose: Normal Respiratory: Diminished and Rales Cardiovascular: Normal : Normal Auscultation: Bowel Sounds: Normal Tenderness: Normal Skin: Normal Musculoskeletal: Normal Psychiatric: Normal Mood Description: Calm Speech Pattern: Clear and Appropriate Laboratory and Diagnostics Result Diagrams: 10/25/19 04:48 10/25/19 04:48 Labs: 10/21/19 17:40 Blood Blood Culture - Preliminary 10/21/19 19:05 Blood Blood Culture - Preliminary Laboratory WBC 13.2 X10^3/uL (3.6-10.0) H 10/25/19 04:48 RBC 3.61 X10^6/uL (3.5-5.4) 10/25/19 04:48 Hgb 9.9 g/dL (12.0-16.0) L 10/25/19 04:48 Hct 30.1 % (36.0-47.0) L 10/25/19 04:48 MCV 83.4 fL (80.0-100.0) 10/25/19 04:48 MCH 27.4 pg (27.0-34.0) 10/25/19 04:48 MCHC 32.8 g/dL (33.0-35.0) L 10/25/19 04:48 RDW 17.2 % (11.6-16.5) H 10/25/19 04:48 Plt Count 103 X10^3/uL (150.0-450.0) L 10/25/19 04:48 Plt Count Comment Decreased (ADEQUATE) A 10/25/19 04:48 MPV 9.0 fL (7.4-11.0) 10/25/19 04:48 Neut % (Auto) 88.9 % (42.0-75.0) H 10/25/19 04:48 Lymph % (Auto) 7.8 % (21.0-51.0) L 10/25/19 04:48 [place] % (Auto) 3.3 % (0.0-13.0) 10/25/19 04:48 Eos % (Auto) 0.0 % (0.9-2.9) L 10/25/19 04:48 Baso % (Auto) 0 % (0.2-1.0) L 10/25/19 04:48 Neut # (Auto) 11.8 x10^3/uL (2.2-4.8) H 10/25/19 04:48 Lymph # (Auto) 1.0 X10^3/uL (1.3-2.9) L 10/25/19 04:48 [place] # (Auto) 0.4 x10^3/uL (0.3-0.8) 10/25/19 04:48 Eos # (Auto) 0.0 x10^3/uL (0.0-0.2) 10/25/19 04:48 Baso # (Auto) 0.0 X10^3/uL (0.0-0.1) 10/25/19 04:48 Absolute Nucleated RBC 0.4 /100WBC 10/25/19 04:48 Total Counted 100 10/25/19 04:48 Neutrophils % (Manual) 90 % (39-76) H 10/25/19 04:48 Band Neutrophils % 1 % (0-10) 10/25/19 04:48 Lymphocytes % (Manual) 7 % (13-43) L 10/25/19 04:48 Monocytes % (Manual) 2 % (4-9) L 10/25/19 04:48 Giant Platelets None 10/21/19 13:10 Plt Morphology Comment Normal (NORMAL) 10/25/19 04:48 RBC Morphology Abnormal (NORMAL) A 10/25/19 04:48 Hypochromasia Slight A 10/25/19 04:48 Anisocytosis Slight A 10/25/19 04:48 Ovalocytes Present 10/25/19 04:48 [place] Cells Present 10/25/19 04:48 Sample Site Rb 10/23/19 09:40 ABG pH 7.520 (7.35-7.45) H 10/23/19 09:40 ABG pCO2 37.0 mmHg (35.0-45.0) 10/23/19 09:40 ABG pO2 55.0 mmHg (80.0-100.0) L 10/23/19 09:40 ABG HCO3 30.2 mmol/L (22-26) H* 10/23/19 09:40 ABG O2 Saturation 91.0 % (90-100) 10/23/19 09:40 ABG Base Excess 7.0 mmol/L (-2.0-2.0) H 10/23/19 09:40 Reagan Test Na 10/23/19 09:40 A-a Gradient 483.0 mmHg 10/23/19 09:40 FiO2 82.0 10/23/19 09:40 Blood Gas Comments Pt negro well. cdn 10/23/19 09:40 Sodium 140 mmol/L (136-145) 10/25/19 04:48 Corrected Sodium TNP 10/25/19 04:48 Potassium 4.3 mmol/L (3.5-5.1) 10/25/19 04:48 Chloride 106 mmol/L (98-107) 10/25/19 04:48 Carbon Dioxide 27.8 mmol/L (21-32) 10/25/19 04:48 BUN 13 mg/dL (7-18) 10/25/19 04:48 Creatinine 0.67 mg/dL (0.55-1.02) 10/25/19 04:48 Est GFR (MDRD) Af Amer > 60 (>60) 10/25/19 04:48 Est GFR (MDRD) Non-Af > 60 (>60) 10/25/19 04:48 Glucose 86 mg/dL (65-99) 10/25/19 04:48 Calcium 7.9 mg/dL (8.5-10.1) L 10/25/19 04:48 Corrected Calcium 9.5 mg/dL (8.5-10.1) 10/25/19 04:48 Phosphorus 4.0 mg/dL (2.6-4.7) 10/22/19 08:00 Magnesium 1.9 mg/dL (1.7-2.9) 10/23/19 05:00 Total Bilirubin 0.50 mg/dL (0.2-1.0) 10/25/19 04:48 AST 40 Units/L (15-37) H 10/25/19 04:48 ALT 17 Units/L (12-78) 10/25/19 04:48 Alkaline Phosphatase 95 Units/L (46-116) 10/25/19 04:48 Creatine Kinase 76 Units/L (26-192) 10/21/19 13:10 CK-MB (CK-2) < 1.0 ng/mL (0-4.0) 10/21/19 13:10 CK/CKMB % Calc 1.3 % (<4) 10/21/19 13:10 Troponin I < 0.02 ng/mL (0-1.5) 10/21/19 13:10 C-Reactive Protein 86.80 mg/L (0-3.0) H 10/25/19 04:48 Total Protein 5.2 g/dL (6.4-8.2) L 10/25/19 04:48 Albumin 2.0 g/dL (3.4-5.0) L 10/25/19 04:48 Globulin 3.2 g/dL (2.5-4.5) 10/25/19 04:48 Albumin/Globulin Ratio 0.6 Ratio (1.1-2.1) L 10/25/19 04:48 Specimen Type Clean catch urine 10/24/19 23:09 Urine Color Yellow (YELLOW) 10/24/19 23:09 Urine Appearance Clear (CLEAR) 10/24/19 23:09 Urine pH 6.0 (5.0 - 8.0) 10/24/19 23:09 Ur Specific [place] 1.010 (1.000-1.030) 10/24/19 23:09 Urine Protein 1+ (NEGATIVE) 10/24/19 23:09 Urine Glucose (UA) Negative (NEGATIVE) 10/24/19 23:09 Urine Ketones Negative (NEGATIVE) 10/24/19 23:09 Urine Occult Blood Negative (NEGATIVE) 10/24/19 23:09 Urine Nitrite Negative (NEGATIVE) 10/24/19 23:09 Urine Bilirubin Negative (NEGATIVE) 10/24/19 23:09 Urine Urobilinogen Normal (NORMAL) 10/24/19 23:09 Ur Leukocyte Esterase Negative (NEGATIVE) 10/24/19 23:09 Urine RBC None seen /HPF (0-3) 10/24/19 23:09 Urine WBC 0-2 /HPF (0-5) 10/24/19 23:09 Ur Squamous Epith Cells Rare /HPF (NEGATIVE) 10/24/19 23:09 Urine Bacteria Negative /HPF (NEGATIVE) 10/24/19 23:09 Ur Culture Indicated? No/not indicated 10/24/19 23:09 Plan (1) Pneumonia due to COVID-19 virus: Status: Inactive Plan: Remdesivir(10/20), Decadron, Supplemental O2 per Respiratory therapy, Actemra 400mg x1(10/20), another dose today (10/24) Pneumonia protocol, Continue to monitor. (2) Acute type 1 respiratory failure: Status: Acute (3) Hypokalemia: Status: Acute Plan: Replete per protocol
[2019-10-25 09:54] LABS: ABG BASE EXCESS 5.5 mmol/L (-2.0-2.0); ABG HCO3 28.9 mmol/L (22-26)
[2019-10-25] MEDS: DECADRON INJ IV SCH ×2 (09:59→20:44)
[2019-10-25] MEDS: ELIQUIS PO SCH (10:00)
[2019-10-25] MEDS: IMODIUM CAP 2 MG PO PRN ×2 (10:00→20:47)
[2019-10-25] MEDS: SINGULAIR TAB 10 MG PO SCH (10:01)
[2019-10-25] MEDS: VITAMIN C PO SCH (10:01)
[2019-10-25] MEDS: PROzac PO SCH (10:01)
[2019-10-25] MEDS: PEPCID TAB 20 MG PO SCH (10:01)
[2019-10-25] MEDS: REMDESIVIR **DO NOT USE THIS ITEM# ** 100 MG in NS 250 ML IV 250 ML IV SCH (10:10)
[2019-10-25] MEDS: ATIVAN TAB 0.5 MG PO PRN ×2 (10:10→20:47)
[2019-10-25] MEDS: KEPPRA ORAL SOLN PO SCH ×2 (10:10→21:30)
[2019-10-25 14:16] LABS: ABG BASE EXCESS 6.1 mmol/L (-2.0-2.0); ABG HCO3 29.6 mmol/L (22-26)
--- NOTE | 2019-10-25 16:19 | CT ---
HISTORYHYPOXIA, COVID +STUDYCTA CHEST with IV contrastCOMPARISONX-ray 10/23/[address] 06/09/2019TECHNIQUEMultiple axial images of the chest were obtained from the thoracic inlet to the upper abdomen after the administration of IV contrast. Omnipaque 350 IV contrast. 3D reconstructions utilizing axial MIPS imaging was performed and reviewed. Dose reduction techniques including Automated Exposure Control (AEC) and adjustment of mA and kV were utilized.FINDINGSDiffuse interstitial and ground-glass infiltrates are seen. This appears to be on a background of COPD. Some of the densities in the lungs are present on prior CT and likely represent chronic interstitial lung disease. However, there appears to be new bronchiectasis since prior study.Small pleural effusions are seen. No pneumothorax is seen. Moderate-sized hiatus hernia is seen with possible changes of gastritis. This is a chronic appearance, though. Likely reactive mediastinal lymph nodes are similar to prior study. Thoracic aorta is normal in size without evidence of dissection.Pulmonary embolus is seen within distal left upper lobe pulmonary artery branches anteriorly. A smaller distal pulmonary embolus is seen within a branch of the right pulmonary artery anteriorly in the right upper lobe. There is suggestion of possible tiny distal emboli in the right middle lobe and left lingula pulmonary artery branches. Another embolus is seen within a 3rd order branch and several distal right pulmonary artery branches within the posterior right upper lobe. RV/LV is 1.4 but this could be associated with mild hypertrophy of the left ventricular myocardium. Heart is overall normal in size with tiny pericardial effusion.IMPRESSIONDiffuse interstitial and ground-glass infiltrates on a background of COPD. Findings are probably due to COVID-19 infection.Several pulmonary emboli are seen bilaterally in the mid to upper lungs with moderate embolus burden. Distribution is unusual and could be associated with COVID-19 infection or proning.RV/LV is 1.4. Wall of the left ventricle appears mildly prominent which could be due to contraction at time of imaging but cardiomyopathy is not excluded. This is a changed appearance since prior CT.Electronically signed by: Radu Barillas (Oct 25, 2019 16:17:59)
[2019-10-25] MEDS ORDERED: HEPARIN SODIUM INJ 5000 UNITS IVP ONE (18:03)
[2019-10-25] MEDS ORDERED: HEPARIN SODIUM INJ 5000 UNITS ONE (18:04)
[2019-10-25] MEDS ORDERED: HEPARIN SODIUM IN D5W 25,000 UNITS/500 ML BAG IV ONE (18:05)
[2019-10-25] MEDS: HEPARIN SODIUM IN D5W 25,000 UNITS/500 ML BAG IV PRN (18:16)
[2019-10-25 18:44] LABS: HEMATOCRIT 30.4 % (36.0-47.0); HEMOGLOBIN 9.9 g/dL (12.0-16.0)
[2019-10-25] MEDS: LIORESAL PO SCH (20:45)
[2019-10-25] MEDS: NEURONTIN CAP 400 MG PO SCH (20:46)
[2019-10-25] MEDS: LIPITOR TAB 40 MG PO SCH (20:46)
[2019-10-26] MEDS: HEPARIN SODIUM IN D5W 25,000 UNITS/500 ML BAG IV PRN ×3 (00:25→23:01)
[2019-10-26] MEDS: DUONEB 0.5 MG/3 MG (3 mL) NEB SCH ×6 (01:15→21:15)
[2019-10-26] MEDS: ZOSYN VIAL 3.375 GRAMS 3.375 G in NS 100 ML IV + SPIKE MINIBAG* 100 ML IV SCH ×3 (05:54→21:52)
[2019-10-26] MEDS: NS + KCL 40 MEQ/L 1,000 ML IV SCH ×3 (06:07→23:20)
[2019-10-26] MEDS: SYNTHROID 88 mcg TAB PO SCH (06:08)
[2019-10-26 06:10] LABS: BASOPHILS % (AUTO) 0 % (0.2-1.0); HEMATOCRIT 28.7 % (36.0-47.0); HEMOGLOBIN 9.4 g/dL (12.0-16.0); LYMPHOCYTES # (AUTO) 0.6 X10^3/uL (1.3-2.9); LYMPHOCYTES % (AUTO) 3.2 % (21.0-51.0); MEAN CORPUSCULAR HGB CONC 32.6 g/dL (33.0-35.0); MEAN CORPUSCULAR VOLUME 82.8 fL (80.0-100.0); MEAN PLATELET VOLUME 10.3 fL (7.4-11.0); MONOCYTES # (AUTO) 0.4 x10^3/uL (0.3-0.8); MONOCYTES % (AUTO) 2.4 % (0.0-13.0); NEUTROPHILS # (AUTO) 17.5 x10^3/uL (2.2-4.8); NEUTROPHILS % (AUTO) 94.4 % (42.0-75.0); PLATELET COUNT 58 X10^3/uL (150.0-450.0); RED BLOOD COUNT 3.47 X10^6/uL (3.5-5.4); RED CELL DISTRIBUTION WIDTH 17.4 % (11.6-16.5); WHITE BLOOD COUNT 18.6 X10^3/uL (3.6-10.0)
[2019-10-26 06:20] LABS: ALANINE AMINOTRANSFERASE 18 Units/L (12-78); ALBUMIN 1.8 g/dL (3.4-5.0); ALKALINE PHOSPHATASE 112 Units/L (46-116); ASPARTATE AMINO TRANSFERASE 49 Units/L (15-37); BLOOD UREA NITROGEN 13 mg/dL (7-18); CALCIUM 7.8 mg/dL (8.5-10.1); CARBON DIOXIDE 28.8 mmol/L (21-32); CHLORIDE 104 mmol/L (98-107); COR CA(FOR HYPOALB) 9.6 mg/dL (8.5-10.1); COR NA(FOR HYPERGLY) 138 mmol/L (136-145); CREATININE 0.61 mg/dL (0.55-1.02); SODIUM 137 mmol/L (136-145); TOTAL PROTEIN 4.7 g/dL (6.4-8.2); eGFR NON BLACK RACES > 60 (>60)
[2019-10-26 06:22] LABS: BAND NEUTROPHILS % 1 % (0-10)
[2019-10-26 06:23] LABS: PLATELET MORPHOLOGY COMMENT NORMAL (NORMAL)
[2019-10-26 06:24] LABS: ANISOCYTOSIS SLIGHT
[2019-10-26] MEDS ORDERED: HEPARIN SODIUM INJ 5000 UNITS ONE ×2 (06:57→21:06)
--- NOTE | 2019-10-26 07:26 | RAD ---
HISTORYCOVID-19, PNEUMONIASTUDYCHEST, 1 [id number]/03/2020, 10/23/2019FINDINGSStable cardiomediastinal silhouette. Diffuse interstitial and ground-glass opacities are progressed since 10/23/2019. No sizable effusion or visible pneumothorax. No acute osseous finding.IMPRESSIONProgressing pulmonary opacities.Electronically signed by: Willi Ferrera (Oct 26, 2019 07:24:53)
[2019-10-26] MEDS: DECADRON INJ IV SCH ×2 (10:00→20:54)
[2019-10-26] MEDS: KEPPRA ORAL SOLN PO SCH ×2 (10:00→20:54)
[2019-10-26] MEDS: PROzac PO SCH (10:01)
[2019-10-26] MEDS: PROTONIX INJ 40 MG VIAL IVP SCH (10:01)
[2019-10-26] MEDS: SINGULAIR TAB 10 MG PO SCH (10:02)
[2019-10-26] MEDS: VITAMIN C PO SCH (10:02)
[2019-10-26] MEDS: ATIVAN TAB 0.5 MG PO PRN ×2 (10:02→21:00)
[2019-10-26] MEDS: IMODIUM CAP 2 MG PO PRN ×2 (10:49→21:00)
[2019-10-26] MEDS ORDERED: NS 100 ML IV 100 ML IV ONE ×3 (16:34→21:35)
[2019-10-26] MEDS: ASCORBIC ACID INJ MULTI-DOSE VIAL IM SCH ×2 (17:04→17:09)
[2019-10-26] MEDS: THIAMINE HCL INJ IM SCH ×2 (17:04→20:55)
[2019-10-26] MEDS: VITAMIN D (1.25MG) PO SCH (17:04)
[2019-10-26] MEDS: VITAMIN A PO SCH (17:05)
[2019-10-26] MEDS: ZINC SULFATE PO SCH ×2 (17:06→20:56)
[2019-10-26] MEDS: ASCORBIC ACID INJ MULTI-DOSE VIAL 1,500 MG in NS 100 ML IV 100 ML IV SCH ×2 (17:10→20:53)
[2019-10-26] MEDS: LIORESAL PO SCH (20:54)
[2019-10-26] MEDS: NEURONTIN CAP 400 MG PO SCH (20:55)
[2019-10-26] MEDS: LIPITOR TAB 40 MG PO SCH (20:55)
[2019-10-27] MEDS: DUONEB 0.5 MG/3 MG (3 mL) NEB SCH ×7 (01:15→21:00)
[2019-10-27] MEDS ORDERED: ASCORBIC ACID INJ MULTI-DOSE VIAL ONE ×2 (02:47→09:58)
[2019-10-27] MEDS: ASCORBIC ACID INJ MULTI-DOSE VIAL 1,500 MG in NS 100 ML IV 100 ML IV SCH ×4 (03:14→21:10)
[2019-10-27] MEDS: ZOSYN VIAL 3.375 GRAMS 3.375 G in NS 100 ML IV + SPIKE MINIBAG* 100 ML IV SCH ×3 (05:49→21:01)
[2019-10-27] MEDS: NS + KCL 40 MEQ/L 1,000 ML IV SCH ×3 (06:06→23:36)
[2019-10-27] MEDS: SYNTHROID 88 mcg TAB PO SCH (06:06)
[2019-10-27 08:56] LABS: BASOPHILS # (AUTO) 0.1 X10^3/uL (0.0-0.1); BASOPHILS % (AUTO) 0.2 % (0.2-1.0); HEMATOCRIT 30.7 % (36.0-47.0); HEMOGLOBIN 9.9 g/dL (12.0-16.0); LYMPHOCYTES # (AUTO) 0.4 X10^3/uL (1.3-2.9); LYMPHOCYTES % (AUTO) 1.4 % (21.0-51.0); MEAN CORPUSCULAR HEMOGLOBIN 26.9 pg (27.0-34.0); MEAN CORPUSCULAR HGB CONC 32.4 g/dL (33.0-35.0); MEAN CORPUSCULAR VOLUME 83.1 fL (80.0-100.0); MONOCYTES # (AUTO) 0.7 x10^3/uL (0.3-0.8); MONOCYTES % (AUTO) 2.7 % (0.0-13.0); NEUTROPHILS # (AUTO) 25.7 x10^3/uL (2.2-4.8); NEUTROPHILS % (AUTO) 95.7 % (42.0-75.0); PLATELET COUNT 91 X10^3/uL (150.0-450.0); RED BLOOD COUNT 3.69 X10^6/uL (3.5-5.4); RED CELL DISTRIBUTION WIDTH 17.6 % (11.6-16.5); WHITE BLOOD COUNT 26.8 X10^3/uL (3.6-10.0)
[2019-10-27 09:00] LABS: ALANINE AMINOTRANSFERASE 20 Units/L (12-78); ALBUMIN 2.1 g/dL (3.4-5.0); ALKALINE PHOSPHATASE 162 Units/L (46-116); ASPARTATE AMINO TRANSFERASE 40 Units/L (15-37); BLOOD UREA NITROGEN 13 mg/dL (7-18); CALCIUM 7.8 mg/dL (8.5-10.1); CARBON DIOXIDE 26.1 mmol/L (21-32); CHLORIDE 104 mmol/L (98-107); COR CA(FOR HYPOALB) 9.3 mg/dL (8.5-10.1); COR NA(FOR HYPERGLY) 139 mmol/L (136-145); CREATININE 0.71 mg/dL (0.55-1.02); SODIUM 138 mmol/L (136-145); TOTAL PROTEIN 4.9 g/dL (6.4-8.2); eGFR NON BLACK RACES > 60 (>60)
[2019-10-27 09:02] LABS: PLATELET MORPHOLOGY COMMENT NORMAL (NORMAL)
[2019-10-27 09:03] LABS: ANISOCYTOSIS SLIGHT
[2019-10-27 09:09] LABS: HYPOCHROMASIA SLIGHT
[2019-10-27 09:17] LABS: BURR CELLS PRESENT
[2019-10-27] MEDS: KEPPRA ORAL SOLN PO SCH ×2 (10:09→21:10)
[2019-10-27] MEDS: VITAMIN C PO SCH (10:09)
[2019-10-27] MEDS ORDERED: HEPARIN SODIUM INJ 5000 UNITS IVP ONE (10:10)
[2019-10-27] MEDS: IMODIUM CAP 2 MG PO PRN ×2 (10:11→21:02)
[2019-10-27] MEDS: VITAMIN A PO SCH (10:13)
[2019-10-27] MEDS: ZINC SULFATE PO SCH ×2 (10:14→21:01)
[2019-10-27] MEDS: PROzac PO SCH (10:14)
[2019-10-27] MEDS: ATIVAN TAB 0.5 MG PO PRN ×3 (10:14→21:03)
[2019-10-27] MEDS: SINGULAIR TAB 10 MG PO SCH (10:15)
[2019-10-27] MEDS: VITAMIN D (1.25MG) PO SCH (10:15)
[2019-10-27] MEDS: PROTONIX INJ 40 MG VIAL IVP SCH (10:16)
[2019-10-27] MEDS: DECADRON INJ IV SCH (10:16)
[2019-10-27] MEDS ORDERED: ZOFRAN INJ 4 MG VIAL IVP PRN (11:00)
[2019-10-27] MEDS ORDERED: ZOFRAN INJ 4 MG VIAL ONE (11:20)
[2019-10-27] MEDS: LIORESAL PO SCH ×2 (12:35→20:59)
[2019-10-27] MEDS ORDERED: PHENERGAN INJ 25 MG IM ONE (13:45)
[2019-10-27] MEDS ORDERED: PHENERGAN INJ 25 MG IM PRN (14:00)
[2019-10-27] MEDS: THIAMINE HCL INJ IM SCH ×2 (14:02→21:00)
[2019-10-27] MEDS ORDERED: VANCOMYCIN HCL PO SCH (17:00)
[2019-10-27] MEDS ORDERED: VANCOMYCIN HCL PO ONE (18:10)
[2019-10-27] MEDS: REQUIP PO SCH ×2 (18:15→21:11)
[2019-10-27] MEDS: LIPITOR TAB 40 MG PO SCH (21:00)
[2019-10-27] MEDS: NEURONTIN CAP 400 MG PO SCH (21:00)
[2019-10-27] MEDS ORDERED: NS 100 ML IV 100 ML IV ONE (21:09)
[2019-10-27] MEDS: HEPARIN SODIUM IN D5W 25,000 UNITS/500 ML BAG IV PRN (21:44)
[2019-10-28] MEDS: DUONEB 0.5 MG/3 MG (3 mL) NEB SCH ×3 (01:00→09:30)
[2019-10-28] MEDS ORDERED: NS 100 ML IV 100 ML IV ONE (02:18)
[2019-10-28] MEDS: ASCORBIC ACID INJ MULTI-DOSE VIAL 1,500 MG in NS 100 ML IV 100 ML IV SCH ×2 (03:00→09:56)
[2019-10-28] MEDS: ZOSYN VIAL 3.375 GRAMS 3.375 G in NS 100 ML IV + SPIKE MINIBAG* 100 ML IV SCH ×2 (05:32→05:33)
[2019-10-28] MEDS: REQUIP PO SCH (05:32)
[2019-10-28] MEDS: NS + KCL 40 MEQ/L 1,000 ML IV SCH ×2 (05:33→10:00)
[2019-10-28] MEDS: SYNTHROID 88 mcg TAB PO SCH (06:04)
[2019-10-28 06:05] LABS: ALANINE AMINOTRANSFERASE 19 Units/L (12-78); ALBUMIN 1.9 g/dL (3.4-5.0); ALKALINE PHOSPHATASE 169 Units/L (46-116); ASPARTATE AMINO TRANSFERASE 39 Units/L (15-37); BLOOD UREA NITROGEN 12 mg/dL (7-18); CALCIUM 7.7 mg/dL (8.5-10.1); CARBON DIOXIDE 25.7 mmol/L (21-32); CHLORIDE 105 mmol/L (98-107); COR CA(FOR HYPOALB) 9.4 mg/dL (8.5-10.1); CREATININE 0.62 mg/dL (0.55-1.02); SODIUM 138 mmol/L (136-145); TOTAL PROTEIN 4.5 g/dL (6.4-8.2); eGFR NON BLACK RACES > 60 (>60)
[2019-10-28 06:11] LABS: BASOPHILS % (AUTO) 0.2 % (0.2-1.0); EOSINOPHILS # (AUTO) 0.3 x10^3/uL (0.0-0.2); EOSINOPHILS % (AUTO) 1.2 % (0.9-2.9); HEMATOCRIT 27.1 % (36.0-47.0); HEMOGLOBIN 8.8 g/dL (12.0-16.0); LYMPHOCYTES # (AUTO) 0.7 X10^3/uL (1.3-2.9); LYMPHOCYTES % (AUTO) 3.2 % (21.0-51.0); MEAN CORPUSCULAR HEMOGLOBIN 27.1 pg (27.0-34.0); MEAN CORPUSCULAR HGB CONC 32.5 g/dL (33.0-35.0); MEAN CORPUSCULAR VOLUME 83.2 fL (80.0-100.0); MEAN PLATELET VOLUME 9.7 fL (7.4-11.0); MONOCYTES # (AUTO) 0 x10^3/uL (0.3-0.8); MONOCYTES % (AUTO) 0.2 % (0.0-13.0); NEUTROPHILS # (AUTO) 20.8 x10^3/uL (2.2-4.8); NEUTROPHILS % (AUTO) 95.2 % (42.0-75.0); PLATELET COUNT 109 X10^3/uL (150.0-450.0); RED BLOOD COUNT 3.25 X10^6/uL (3.5-5.4); RED CELL DISTRIBUTION WIDTH 17.8 % (11.6-16.5); WHITE BLOOD COUNT 21.8 X10^3/uL (3.6-10.0)
[2019-10-28 06:30] LABS: BAND NEUTROPHILS % 2 % (0-10); CRENATED RBC 1+; HYPOCHROMASIA SLIGHT
[2019-10-28 06:48] LABS: ABG BASE EXCESS 7.4 mmol/L (-2.0-2.0)
[2019-10-28 07:01] LABS: PLATELET MORPHOLOGY COMMENT NORMAL (NORMAL)
--- NOTE | 2019-10-28 08:30 | RAD ---
HISTORYPNEUMONIA/ COVID POSITIVESTUDYCHEST, 1 VIEWCOMPARISONJuly 2019FINDINGSThe patient is rotated the cardiac silhouette is relatively stable. Diffuse interstitial and ground-glass opacities are again demonstrated bilaterally with no significant interval improvement since prior exam. Recommend clinical correlation and continue follow up as indicated for further evaluation. Postoperative changes of the cervical spine are noted. The aortic knob is partially calcifiedIMPRESSIONDiffuse airspace disease bilaterally with no significant interval improvement since prior exam.Electronically signed by: TERRY HADLEY (Oct 28, 2019 08:28:50)
[2019-10-28] MEDS ORDERED: VITAMIN A PO SCH (09:00)
[2019-10-28] MEDS ORDERED: DECADRON TAB PO SCH (09:00)
[2019-10-28] MEDS ORDERED: VITAMIN D3 25 mcg (1,000 UNITS) PO SCH (09:00)
--- NOTE | 2019-10-28 09:04 | PCM.PROG ---
Progress Note Progress Note for Day of Date of Exam: 10/28/19 Subjective Subjective: Telephoned patient's son per her request, Gus Umanzor, to discuss medical status. Explained to Mr Umanzor patient's worsening respiratory status, as well as possibility of intubation, mechanical ventilation, and transfer to critical care hospital. He verbalized understanding of patient's condition, informed on risk of intubation, ventilation, and transfer. He agrees with plan of care and is aware of risk. Will continue plan of care, close monitoring, and work on patient transfer. Past Medical Family Social History Past Med/Fam/Surg Hx: No changes since H&P Allergies: Allergies Sulfa (Sulfonamide Antibiotics) [SULFA] Allergy (Verified 06/05/19 14:48) Review of Systems ROS: No change since H&P Vital Signs and I&O's Vital Signs: Temperature 98.0 F Pulse Rate [Brachial] 85 Pulse Rate 82 Respiratory Rate 26 Blood Pressure [Left Arm] 128/60 Blood Pressure 114/56 O2 Sat by Pulse Oximetry 83 Intake and Output: Intake & Output 10/25/19 10/26/19 10/27/19 10/28/19 23:59 23:59 23:59 23:59 Intake Total 2433 / 2433 3072 / 3072 2447 / 2447 703 / 703 Output Total 1800 / 1800 1400 / 1400 2200 / 2200 700 / 700 Balance 633 / 633 1672 / 1672 247 / 247 3 / 3 Physical Exam Oriented: Normal Eyes: Normal Ear: Normal Nose: Normal Respiratory: Diminished and [place] Cardiovascular: Normal : Normal Auscultation: Bowel Sounds: Normal Tenderness: Normal Skin: Normal Musculoskeletal: Normal Psychiatric: Normal Mood Description: Calm Speech Pattern: Clear and Appropriate Laboratory and Diagnostics Result Diagrams: 10/28/19 05:25 10/28/19 05:25 Labs: 10/21/19 17:40 Blood Blood Culture - Final 10/21/19 19:05 Blood Blood Culture - Final Laboratory WBC 21.8 X10^3/uL (3.6-10.0) H 10/28/19 05:25 RBC 3.25 X10^6/uL (3.5-5.4) L 10/28/19 05:25 Hgb 8.8 g/dL (12.0-16.0) L 10/28/19 05:25 Hct 27.1 % (36.0-47.0) L 10/28/19 05:25 MCV 83.2 fL (80.0-100.0) 10/28/19 05:25 MCH 27.1 pg (27.0-34.0) 10/28/19 05:25 MCHC 32.5 g/dL (33.0-35.0) L 10/28/19 05:25 RDW 17.8 % (11.6-16.5) H 10/28/19 05:25 Plt Count 109 X10^3/uL (150.0-450.0) L 10/28/19 05:25 Plt Count Comment Decreased (ADEQUATE) A 10/28/19 05:25 MPV 9.7 fL (7.4-11.0) 10/28/19 05:25 Neut % (Auto) 95.2 % (42.0-75.0) H 10/28/19 05:25 Lymph % (Auto) 3.2 % (21.0-51.0) L 10/28/19 05:25 [place] % (Auto) 0.2 % (0.0-13.0) 10/28/19 05:25 Eos % (Auto) 1.2 % (0.9-2.9) 10/28/19 05:25 Baso % (Auto) 0.2 % (0.2-1.0) 10/28/19 05:25 Neut # (Auto) 20.8 x10^3/uL (2.2-4.8) H 10/28/19 05:25 Lymph # (Auto) 0.7 X10^3/uL (1.3-2.9) L 10/28/19 05:25 [place] # (Auto) 0 x10^3/uL (0.3-0.8) L 10/28/19 05:25 Eos # (Auto) 0.3 x10^3/uL (0.0-0.2) H 10/28/19 05:25 Baso # (Auto) 0.0 X10^3/uL (0.0-0.1) 10/28/19 05:25 Absolute Nucleated RBC 0.3 /100WBC 10/28/19 05:25 Total Counted 100 10/28/19 05:25 Neutrophils % (Manual) 91 % (39-76) H 10/28/19 05:25 Band Neutrophils % 2 % (0-10) 10/28/19 05:25 Lymphocytes % (Manual) 5 % (13-43) L 10/28/19 05:25 Monocytes % (Manual) 1 % (4-9) L 10/28/19 05:25 Eosinophils % (Manual) 1 % (0-6) 10/28/19 05:25 Giant Platelets None 10/21/19 13:10 Plt Morphology Comment Normal (NORMAL) 10/28/19 05:25 RBC Morphology Abnormal (NORMAL) A 10/28/19 05:25 Hypochromasia Slight A 10/28/19 05:25 Anisocytosis Slight A 10/27/19 08:40 Ovalocytes Present 10/25/19 04:48 [place] Cells Present 10/27/19 08:40 Crenated Cell 1+ A 10/28/19 05:25 PT 28.0 SECONDS (11.8-14.3) 10/25/19 17:30 INR Target Range - 10/25/19 17:30 INR 2.72 (0.8-1.3) H 10/25/19 17:30 APTT 61.7 SECONDS (22.9-36.5) H 10/28/19 05:25 PTT Comment - 10/28/19 05:25 Sample Site Rb 10/28/19 06:42 ABG pH 7.470 (7.35-7.45) H 10/28/19 06:42 ABG pCO2 44.0 mmHg (35.0-45.0) 10/28/19 06:42 ABG pO2 40.0 mmHg (80.0-100.0) L* 10/28/19 06:42 ABG HCO3 32.0 mmol/L (22-26) H* 10/28/19 06:42 ABG O2 Saturation 79.0 % (90-100) L* 10/28/19 06:42 ABG Base Excess 7.4 mmol/L (-2.0-2.0) H 10/28/19 06:42 [place] Test Na 10/28/19 06:42 A-a Gradient 582.0 mmHg 10/28/19 06:42 FiO2 95.0 10/28/19 06:42 Blood Gas Comments [place] well gmb 10/28/19 06:42 Sodium 138 mmol/L (136-145) 10/28/19 05:25 Corrected Sodium TNP 10/28/19 05:25 Potassium 4.6 mmol/L (3.5-5.1) 10/28/19 05:25 Chloride 105 mmol/L (98-107) 10/28/19 05:25 Carbon Dioxide 25.7 mmol/L (21-32) 10/28/19 05:25 BUN 12 mg/dL (7-18) 10/28/19 05:25 Creatinine 0.62 mg/dL (0.55-1.02) 10/28/19 05:25 Est GFR (MDRD) Af Amer > 60 (>60) 10/28/19 05:25 Est GFR (MDRD) Non-Af > 60 (>60) 10/28/19 05:25 Glucose 87 mg/dL (65-99) 10/28/19 05:25 Calcium 7.7 mg/dL (8.5-10.1) L 10/28/19 05:25 Corrected Calcium 9.4 mg/dL (8.5-10.1) 10/28/19 05:25 Phosphorus 4.0 mg/dL (2.6-4.7) 10/22/19 08:00 Magnesium 1.9 mg/dL (1.7-2.9) 10/23/19 05:00 Total Bilirubin 0.40 mg/dL (0.2-1.0) 10/28/19 05:25 AST 39 Units/L (15-37) H 10/28/19 05:25 ALT 19 Units/L (12-78) 10/28/19 05:25 Alkaline Phosphatase 169 Units/L (46-116) H 10/28/19 05:25 Creatine Kinase 76 Units/L (26-192) 10/21/19 13:10 CK-MB (CK-2) < 1.0 ng/mL (0-4.0) 10/21/19 13:10 CK/CKMB % Calc 1.3 % (<4) 10/21/19 13:10 Troponin I < 0.02 ng/mL (0-1.5) 10/21/19 13:10 C-Reactive Protein 188.40 mg/L (0-3.0) H 10/26/19 05:55 Total Protein 4.5 g/dL (6.4-8.2) L 10/28/19 05:25 Albumin 1.9 g/dL (3.4-5.0) L 10/28/19 05:25 Globulin 2.6 g/dL (2.5-4.5) 10/28/19 05:25 Albumin/Globulin Ratio 0.7 Ratio (1.1-2.1) L 10/28/19 05:25 Specimen Type Clean catch urine 10/24/19 23:09 Urine Color Yellow (YELLOW) 10/24/19 23:09 Urine Appearance Clear (CLEAR) 10/24/19 23:09 Urine pH 6.0 (5.0 - 8.0) 10/24/19 23:09 Ur Specific Sasser 1.010 (1.000-1.030) 10/24/19 23:09 Urine Protein 1+ (NEGATIVE) 10/24/19 23:09 Urine Glucose (UA) Negative (NEGATIVE) 10/24/19 23:09 Urine Ketones Negative (NEGATIVE) 10/24/19 23:09 Urine Occult Blood Negative (NEGATIVE) 10/24/19 23:09 Urine Nitrite Negative (NEGATIVE) 10/24/19 23:09 Urine Bilirubin Negative (NEGATIVE) 10/24/19 23:09 Urine Urobilinogen Normal (NORMAL) 10/24/19 23:09 Ur Leukocyte Esterase Negative (NEGATIVE) 10/24/19 23:09 Urine RBC None seen /HPF (0-3) 10/24/19 23:09 Urine WBC 0-2 /HPF (0-5) 10/24/19 23:09 Ur Squamous Epith Cells Rare /HPF (NEGATIVE) 10/24/19 23:09 Urine Bacteria Negative /HPF (NEGATIVE) 10/24/19 23:09 Ur Culture Indicated? No/not indicated 10/24/19 23:09 Stl C. diff Tox B Gene Negative (NEGATIVE) 10/27/19 17:00 Stl C. diff [id number] Negative (NEGATIVE) 10/27/19 17:00 Plan (1) Pneumonia due to COVID-19 virus: Status: Inactive Plan: Remdesivir(10/20), Decadron, Supplemental O2 per Respiratory therapy, Actemra 400mg x1(10/20), another dose today (10/24) Pneumonia protocol, Continue to monitor. (2) Acute type 1 respiratory failure: Status: Acute (3) Hypokalemia: Status: Acute Plan: Replete per protocol
--- NOTE | 2019-10-28 09:41 | W.DIS.FURT ---
Summary of Discharge Discharge Summary of Date Date of Exam: 10/28/19 Admission Date Date of Admission: 10/21/19 Admission Diagnosis Patient Problems (Updated 10/22/19 @ 08:12 by Harriet Sage) Acute type 1 respiratory failure (Acute) J96.01 COVID-19 (Acute) U07.1 Hypokalemia (Acute) E87.6 Hospital Course: Pt is a 68 y/o f pmhx CVA, Afib, Hypothyroidism, Hiatal hernia, admitted for COVID19 pneumonia(positive on 10/14). She had CTA on 10/24, which showed diffuse interstitial and ground-glass infiltrates on a background of COPD. Several pulmonary emboli are seen bilaterally in the mid to upper lungs with moderate embolus burden. She was started on heparin gtt. Her treatments have also included Remdesivir(10/20), received Actemra 400mg x 2 (10/20 and 10/24). Abx:Zosyn(completed 5d of azithromycin). IV Decadron 4mg BID. She has been on High flow since admission, but respiratory status worsening, her ABG this morning pH 7.47/CO2 44/ O2 40/ HCO3 32/ O2sat 79/ FiO2 95%. Will place on CPAP and recheck ABG in an hour. If no improvement or worsening symptoms will need to be intubated and placed on mechanical ventilation. Discussed with ICU physician [facility], [place], [place], accepts transfer of care. Vital Signs: Vital Signs (72 hours) 10/25/19 09:45 10/25/19 10:00 10/25/19 10:15 Temperature Pulse Rate 83 109 H 104 H Respiratory Rate 34 H 40 H 33 H Blood Pressure 132/65 O2 Sat by Pulse Oximetry 92 L 83 L 85 L 10/25/19 10:30 10/25/19 10:45 10/25/19 11:00 Temperature Pulse Rate 102 H 101 H 96 H Respiratory Rate 40 H 37 H 41 H Blood Pressure 150/74 O2 Sat by Pulse Oximetry 84 L 95 99 10/25/19 11:15 10/25/19 11:30 10/25/19 11:45 Temperature Pulse Rate 94 H 98 H 93 H Respiratory Rate 39 H 41 H 35 H Blood Pressure O2 Sat by Pulse Oximetry 99 91 L 98 10/25/19 12:00 10/25/19 12:15 10/25/19 12:20 Temperature 100.2 F H Pulse Rate 92 H 97 H 95 H Respiratory Rate 37 H 37 H Blood Pressure 155/75 O2 Sat by Pulse Oximetry 99 97 95 10/25/19 12:30 10/25/19 12:45 10/25/19 13:00 Temperature Pulse Rate 104 H 100 H 100 H Respiratory Rate 39 H 46 H 40 H Blood Pressure 131/66 O2 Sat by Pulse Oximetry 94 L 97 96 10/25/19 13:15 10/25/19 13:30 10/25/19 13:45 Temperature Pulse Rate 100 H 101 H 113 H Respiratory Rate 13 84 H 55 H Blood Pressure O2 Sat by Pulse Oximetry 96 93 L 79 L 10/25/19 14:00 10/25/19 14:15 10/25/19 14:30 Temperature Pulse Rate 103 H 96 H 94 H Respiratory Rate 32 H 38 H 34 H Blood Pressure 134/71 O2 Sat by Pulse Oximetry 86 L 89 L 88 L 10/25/19 14:53 10/25/19 15:00 10/25/19 15:15 Temperature Pulse Rate 102 H 94 H 91 H Respiratory Rate 30 H 26 H 27 H Blood Pressure 140/77 O2 Sat by Pulse Oximetry 83 L 96 97 10/25/19 15:30 10/25/19 15:45 10/25/19 16:00 Temperature 99.2 F Pulse Rate 91 H 91 H 94 H Respiratory Rate 29 H 28 H 26 H Blood Pressure O2 Sat by Pulse Oximetry 98 98 99 10/25/19 16:03 10/25/19 16:15 10/25/19 16:30 Temperature Pulse Rate 101 H 94 H 88 Respiratory Rate 38 H 24 28 H Blood Pressure 122/65 O2 Sat by Pulse Oximetry 93 L 100 100 10/25/19 16:45 10/25/19 17:00 10/25/19 17:01 Temperature Pulse Rate 93 H 93 H 94 H Respiratory Rate 36 H 21 28 H Blood Pressure 135/71 O2 Sat by Pulse Oximetry 85 L 94 L 95 10/25/19 17:15 10/25/19 17:30 10/25/19 17:45 Temperature Pulse Rate 91 H 91 H 92 H Respiratory Rate 26 H 21 21 Blood Pressure O2 Sat by Pulse Oximetry 91 L 90 L 94 L 10/25/19 17:50 10/25/19 18:00 10/25/19 18:01 Temperature Pulse Rate 98 H 91 H 92 H Respiratory Rate 32 H 30 H 32 H Blood Pressure 149/72 O2 Sat by Pulse Oximetry 90 L 90 L 88 L 10/25/19 18:15 10/25/19 18:30 10/25/19 18:45 Temperature Pulse Rate 87 89 87 Respiratory Rate 29 H 29 H 28 H Blood Pressure O2 Sat by Pulse Oximetry 93 L 94 L 94 L 10/25/19 19:00 10/25/19 20:00 10/25/19 21:00 Temperature 98.1 F Pulse Rate 93 H 84 82 Respiratory Rate 31 H 24 24 Blood Pressure 135/73 153/79 O2 Sat by Pulse Oximetry 89 L 94 L 97 10/25/19 21:30 10/25/19 22:00 10/25/19 23:00 Temperature Pulse Rate 74 86 81 Respiratory Rate 26 H 24 Blood Pressure 151/80 154/78 O2 Sat by Pulse Oximetry 96 95 95 10/26/19 00:00 10/26/19 01:00 10/26/19 02:00 Temperature 98.4 F Pulse Rate 90 98 H 79 Respiratory Rate 22 28 H 26 H Blood Pressure 138/69 138/69 140/72 O2 Sat by Pulse Oximetry 100 88 L 100 10/26/19 03:00 10/26/19 04:00 10/26/19 05:00 Temperature 98.4 F Pulse Rate 98 H 83 76 Respiratory Rate 30 H 24 26 H Blood Pressure 141/67 125/72 131/75 O2 Sat by Pulse Oximetry 96 90 L 88 L 10/26/19 06:00 10/26/19 07:00 10/26/19 08:00 Temperature 98.9 F Pulse Rate 86 97 H 83 Respiratory Rate 24 34 H 27 H Blood Pressure 140/78 116/55 153/75 O2 Sat by Pulse Oximetry 92 L 80 L 83 L 10/26/19 08:30 10/26/19 09:00 10/26/19 10:00 Temperature Pulse Rate 88 93 H 101 H Respiratory Rate 25 H 26 H 31 H Blood Pressure 153/75 153/75 O2 Sat by Pulse Oximetry 96 100 10/26/19 11:00 10/26/19 12:00 10/26/19 13:00 Temperature 97.8 F Pulse Rate 84 92 H 92 H Respiratory Rate 26 H 31 H 37 H Blood Pressure 139/68 146/71 143/69 O2 Sat by Pulse Oximetry 85 L 85 L 86 L 10/26/19 14:00 10/26/19 15:00 10/26/19 16:00 Temperature 98.0 F Pulse Rate 80 80 83 Respiratory Rate 28 H 22 28 H Blood Pressure 150/82 174/90 137/72 O2 Sat by Pulse Oximetry 97 99 89 L 10/26/19 16:42 10/26/19 17:00 10/26/19 18:00 Temperature Pulse Rate 83 85 Respiratory Rate 23 21 22 Blood Pressure 152/80 147/74 O2 Sat by Pulse Oximetry 100 96 10/26/19 19:00 10/26/19 20:00 10/26/19 21:00 Temperature 98.2 F Pulse Rate 75 80 78 Respiratory Rate 28 H 19 26 H Blood Pressure 162/81 143/69 138/64 O2 Sat by Pulse Oximetry 100 97 97 10/26/19 21:15 10/26/19 22:00 10/26/19 23:00 Temperature Pulse Rate 102 H 73 72 Respiratory Rate 28 H 26 H Blood Pressure 152/75 127/60 O2 Sat by Pulse Oximetry 96 95 93 L 10/27/19 00:00 10/27/19 01:00 10/27/19 02:00 Temperature 98.0 F Pulse Rate 61 80 83 Respiratory Rate 26 H 25 H 24 Blood Pressure 123/60 132/63 108/63 O2 Sat by Pulse Oximetry 96 98 94 L 10/27/19 03:00 10/27/19 04:00 10/27/19 05:00 Temperature 98.4 F Pulse Rate 78 83 79 Respiratory Rate 25 H 23 27 H Blood Pressure 122/67 142/74 152/84 O2 Sat by Pulse Oximetry 96 91 L 96 10/27/19 05:30 10/27/19 06:00 10/27/19 07:00 Temperature Pulse Rate 76 77 77 Respiratory Rate 27 H 27 H Blood Pressure 161/74 160/77 O2 Sat by Pulse Oximetry 93 L 92 L 93 L 10/27/19 08:00 10/27/19 08:08 10/27/19 08:09 Temperature 98.6 F Pulse Rate 84 88 Respiratory Rate 24 22 Blood Pressure 144/71 O2 Sat by Pulse Oximetry 94 L 94 L 10/27/19 09:00 10/27/19 10:00 10/27/19 11:00 Temperature 98.5 F Pulse Rate 96 H 81 75 Respiratory Rate 25 H 24 21 Blood Pressure 140/66 128/61 146/69 O2 Sat by Pulse Oximetry 97 100 99 10/27/19 11:55 10/27/19 12:00 10/27/19 13:00 Temperature Pulse Rate 90 91 H Respiratory Rate 19 27 H Blood Pressure 124/64 139/77 O2 Sat by Pulse Oximetry 99 86 L 90 L 10/27/19 14:00 10/27/19 15:00 10/27/19 16:00 Temperature Pulse Rate 89 93 H 90 Respiratory Rate 26 H 29 H 34 H Blood Pressure 99/56 109/63 109/65 O2 Sat by Pulse Oximetry 93 L 95 100 10/27/19 17:00 10/27/19 18:00 10/27/19 19:00 Temperature 98.6 F Pulse Rate 88 82 80 Respiratory Rate 25 H 18 26 H Blood Pressure 114/59 148/68 122/61 O2 Sat by Pulse Oximetry 83 L 92 L 96 10/27/19 20:00 10/27/19 21:00 10/27/19 22:00 Temperature 98.3 F Pulse Rate 82 81 92 H Respiratory Rate 25 H 27 H 26 H Blood Pressure 109/57 128/67 107/56 O2 Sat by Pulse Oximetry 100 94 L 94 L 10/27/19 23:00 10/28/19 00:00 10/28/19 01:00 Temperature 98.0 F Pulse Rate 80 85 95 H Respiratory Rate 24 27 H 27 H Blood Pressure 116/61 119/56 99/54 O2 Sat by Pulse Oximetry 100 92 L 90 L 10/28/19 02:00 10/28/19 03:00 10/28/19 04:00 Temperature 98.1 F Pulse Rate 84 82 81 Respiratory Rate 28 H 28 H 26 H Blood Pressure 98/53 104/58 110/55 O2 Sat by Pulse Oximetry 73 L 95 81 L 10/28/19 05:00 10/28/19 06:00 Temperature 98.0 F 98.0 F Pulse Rate 80 82 Respiratory Rate 28 H 26 H Blood Pressure 115/62 114/56 O2 Sat by Pulse Oximetry 94 L 83 L Labs: Laboratory Last Values WBC 21.8 X10^3/uL (3.6-10.0) H 10/28/19 05:25 RBC 3.25 X10^6/uL (3.5-5.4) L 10/28/19 05:25 Hgb 8.8 g/dL (12.0-16.0) L 10/28/19 05:25 Hct 27.1 % (36.0-47.0) L 10/28/19 05:25 MCV 83.2 fL (80.0-100.0) 10/28/19 05:25 MCH 27.1 pg (27.0-34.0) 10/28/19 05:25 MCHC 32.5 g/dL (33.0-35.0) L 10/28/19 05:25 RDW 17.8 % (11.6-16.5) H 10/28/19 05:25 Plt Count 109 X10^3/uL (150.0-450.0) L 10/28/19 05:25 Plt Count Comment Decreased (ADEQUATE) A 10/28/19 05:25 MPV 9.7 fL (7.4-11.0) 10/28/19 05:25 Neut % (Auto) 95.2 % (42.0-75.0) H 10/28/19 05:25 Lymph % (Auto) 3.2 % (21.0-51.0) L 10/28/19 05:25 [place] % (Auto) 0.2 % (0.0-13.0) 10/28/19 05:25 Eos % (Auto) 1.2 % (0.9-2.9) 10/28/19 05:25 Baso % (Auto) 0.2 % (0.2-1.0) 10/28/19 05:25 Neut # (Auto) 20.8 x10^3/uL (2.2-4.8) H 10/28/19 05:25 Lymph # (Auto) 0.7 X10^3/uL (1.3-2.9) L 10/28/19 05:25 [place] # (Auto) 0 x10^3/uL (0.3-0.8) L 10/28/19 05:25 Eos # (Auto) 0.3 x10^3/uL (0.0-0.2) H 10/28/19 05:25 Baso # (Auto) 0.0 X10^3/uL (0.0-0.1) 10/28/19 05:25 Absolute Nucleated RBC 0.3 /100WBC 10/28/19 05:25 Total Counted 100 10/28/19 05:25 Neutrophils % (Manual) 91 % (39-76) H 10/28/19 05:25 Band Neutrophils % 2 % (0-10) 10/28/19 05:25 Lymphocytes % (Manual) 5 % (13-43) L 10/28/19 05:25 Monocytes % (Manual) 1 % (4-9) L 10/28/19 05:25 Eosinophils % (Manual) 1 % (0-6) 10/28/19 05:25 Giant Platelets None 10/21/19 13:10 Plt Morphology Comment Normal (NORMAL) 10/28/19 05:25 RBC Morphology Abnormal (NORMAL) A 10/28/19 05:25 Hypochromasia Slight A 10/28/19 05:25 Anisocytosis Slight A 10/27/19 08:40 Ovalocytes Present 10/25/19 04:48 [place] Cells Present 10/27/19 08:40 Crenated Cell 1+ A 10/28/19 05:25 PT 28.0 SECONDS (11.8-14.3) 10/25/19 17:30 INR Target Range - 10/25/19 17:30 INR 2.72 (0.8-1.3) H 10/25/19 17:30 APTT 61.7 SECONDS (22.9-36.5) H 10/28/19 05:25 PTT Comment - 10/28/19 05:25 Sample Site Rb 10/28/19 06:42 ABG pH 7.470 (7.35-7.45) H 10/28/19 06:42 ABG pCO2 44.0 mmHg (35.0-45.0) 10/28/19 06:42 ABG pO2 40.0 mmHg (80.0-100.0) L* 10/28/19 06:42 ABG HCO3 32.0 mmol/L (22-26) H* 10/28/19 06:42 ABG O2 Saturation 79.0 % (90-100) L* 10/28/19 06:42 ABG Base Excess 7.4 mmol/L (-2.0-2.0) H 10/28/19 06:42 [place] Test Na 10/28/19 06:42 A-a Gradient 582.0 mmHg 10/28/19 06:42 FiO2 95.0 10/28/19 06:42 Blood Gas Comments [place] well gmb 10/28/19 06:42 Sodium 138 mmol/L (136-145) 10/28/19 05:25 Corrected Sodium TNP 10/28/19 05:25 Potassium 4.6 mmol/L (3.5-5.1) 10/28/19 05:25 Chloride 105 mmol/L (98-107) 10/28/19 05:25 Carbon Dioxide 25.7 mmol/L (21-32) 10/28/19 05:25 BUN 12 mg/dL (7-18) 10/28/19 05:25 Creatinine 0.62 mg/dL (0.55-1.02) 10/28/19 05:25 Est GFR (MDRD) Af Amer > 60 (>60) 10/28/19 05:25 Est GFR (MDRD) Non-Af > 60 (>60) 10/28/19 05:25 Glucose 87 mg/dL (65-99) 10/28/19 05:25 Calcium 7.7 mg/dL (8.5-10.1) L 10/28/19 05:25 Corrected Calcium 9.4 mg/dL (8.5-10.1) 10/28/19 05:25 Phosphorus 4.0 mg/dL (2.6-4.7) 10/22/19 08:00 Magnesium 1.9 mg/dL (1.7-2.9) 10/23/19 05:00 Total Bilirubin 0.40 mg/dL (0.2-1.0) 10/28/19 05:25 AST 39 Units/L (15-37) H 10/28/19 05:25 ALT 19 Units/L (12-78) 10/28/19 05:25 Alkaline Phosphatase 169 Units/L (46-116) H 10/28/19 05:25 Creatine Kinase 76 Units/L (26-192) 10/21/19 13:10 CK-MB (CK-2) < 1.0 ng/mL (0-4.0) 10/21/19 13:10 CK/CKMB % Calc 1.3 % (<4) 10/21/19 13:10 Troponin I < 0.02 ng/mL (0-1.5) 10/21/19 13:10 C-Reactive Protein 188.40 mg/L (0-3.0) H 10/26/19 05:55 Total Protein 4.5 g/dL (6.4-8.2) L 10/28/19 05:25 Albumin 1.9 g/dL (3.4-5.0) L 10/28/19 05:25 Globulin 2.6 g/dL (2.5-4.5) 10/28/19 05:25 Albumin/Globulin Ratio 0.7 Ratio (1.1-2.1) L 10/28/19 05:25 Specimen Type Clean catch urine 10/24/19 23:09 Urine Color Yellow (YELLOW) 10/24/19 23:09 Urine Appearance Clear (CLEAR) 10/24/19 23:09 Urine pH 6.0 (5.0 - 8.0) 10/24/19 23:09 Ur Specific [place] 1.010 (1.000-1.030) 10/24/19 23:09 Urine Protein 1+ (NEGATIVE) 10/24/19 23:09 Urine Glucose (UA) Negative (NEGATIVE) 10/24/19 23:09 Urine Ketones Negative (NEGATIVE) 10/24/19 23:09 Urine Occult Blood Negative (NEGATIVE) 10/24/19 23:09 Urine Nitrite Negative (NEGATIVE) 10/24/19 23:09 Urine Bilirubin Negative (NEGATIVE) 10/24/19 23:09 Urine Urobilinogen Normal (NORMAL) 10/24/19 23:09 Ur Leukocyte Esterase Negative (NEGATIVE) 10/24/19 23:09 Urine RBC None seen /HPF (0-3) 10/24/19 23:09 Urine WBC 0-2 /HPF (0-5) 10/24/19 23:09 Ur Squamous Epith Cells Rare /HPF (NEGATIVE) 10/24/19 23:09 Urine Bacteria Negative /HPF (NEGATIVE) 10/24/19 23:09 Ur Culture Indicated? No/not indicated 10/24/19 23:09 Stl C. diff Tox B Gene Negative (NEGATIVE) 10/27/19 17:00 Stl C. diff [id number] Negative (NEGATIVE) 10/27/19 17:00 Reason For Visit: type 1 respiratory failure,acute;pneumonia,covid 1 Discharge Date Discharge Date: 10/28/19 Discharge Diagnosis All Active Problems (Updated 10/22/19 @ 08:12 by Harriet Sage) Acute type 1 respiratory failure (Acute) COVID-19 (Acute) Hypokalemia (Acute) Atrial fibrillation (Chronic) CVA (cerebral vascular accident) (Chronic) Left-sided weakness (Chronic) Lower back pain (Chronic) Plan of Treatment: Continue with present treatment and follow up plan. Pt is to keep follow up appointment as instructed and take medications as ordered. Discharge Medications Discharge Medications: Sulfa (Sulfonamide Antibiotics) [SULFA] Allergy (Verified 06/05/19 14:48) CONTINUE taking the following medications prednisone 40 mg PO DAILY 10/21/19 [History] Discharge Disposition Discharge Disposition: Transfer to [place], [place] Discharge Condition: Guarded
[2019-10-28] MEDS: PROzac PO SCH (09:57)
[2019-10-28] MEDS: SINGULAIR TAB 10 MG PO SCH (09:57)
[2019-10-28] MEDS: VITAMIN C PO SCH (09:57)
[2019-10-28] MEDS: ZINC SULFATE PO SCH (09:57)
[2019-10-28] MEDS: PROTONIX INJ 40 MG VIAL IVP SCH (09:58)
[2019-10-28] MEDS: KEPPRA ORAL SOLN PO SCH (09:58)
[2019-10-28] MEDS: THIAMINE HCL INJ IM SCH (09:59)
[2019-10-28 11:07] LABS: ABG BASE EXCESS 4.1 mmol/L (-2.0-2.0); ABG HCO3 29.2 mmol/L (22-26)
[2019-10-28 11:08] LABS: ABG ALLEN TEST POS
[2019-10-28 13:07] VITALS: BP 141/65
== END 2019-10-28 12:10 | disposition short-term general hospital (02) | DRG 177 ==
LOC: ER 12:53 → ICU 16:48
PROVIDERS: ADMIT Internal Medicine; ATTEND Internal Medicine
DX: U07.1 COVID-19; E87.6 Hypokalemia; I10 Essential (primary) hypertension; R19.7 Diarrhea, unspecified; I25.2 Old myocardial infarction; J96.01 Acute respiratory failure with hypoxia; J12.89 Other viral pneumonia; R10.84 Generalized abdominal pain; I48.91 Unspecified atrial fibrillation; E03.8 Other specified hypothyroidism; M54.5 Low back pain; R26.89 Other abnormalities of gait and mobility

== ENCOUNTER 2020-01-04 00:58 | Observation (INO) ==
--- NOTE | 2020-01-04 01:19 | DR.DIZZY ---
HPI Time seen Time Seen by Provider: 01/04/20 01:18 HPI Comment HPI Comment: 69 yo f w/ prev hx of cva, afib s/p ablation presents s/p syncopal episode. Recent admission for covid/ respiratory failure/ PE in September. Long ICU course. Was transferred to [facility] in [place]. Dc'd on fondaparinux wh ich she is still taking for her pe. Was ambulating to bathroom when she had sudden onset syncope and worsening of her LLE weakness. PRev hx of stroke w/ residual left sided deficits h/e states LLE weakness worse tonight. Onset 1 hr ago h/e much improved on arrival to ED. + episode of nb/ nb emesis as well as fecal incontinance during syncopal episode. No CP, palpitations, abd pain, bllod per rectum. No seizure activity, head strike or injury. Source History Provided: Patient and Family Member Mode of Arrival Mode of Arrival: EMS Context Stroke Symptoms: Weakness of limb PMH PMH Past Medical History: Anxiety, Arthritis, CVA, Depression, Hypertension, Hypothyroidism and Seizures Past Medical History Comment: chronic hypoxemia, PE Past Surgical History: Yes Surgical History: Hysterectomy Past Surgical History Comment: cardiac ablation Family History History of Family Medical Conditions: Yes Family Medical History: Cancer Social History Type of Tobacco Use: None Alcohol Use: None Do you use any recreational Drugs:: No ROS Review of Systems Constitutional: No Symptoms Reported Eyes: No Symptoms Reported ENTM: No Symptoms Reported Respiratoy: No Symptoms Reported Cardiovascular: Syncope; negative Chest Pain, Edema and Palpitations Gastrointestinal/Abdominal: Nausea and Vomiting; negative Abdominal Pain, Constipation and Diarrhea Genitourinary: No Symptoms Reported Neurological: No Symptoms Reported Musculoskeletal: No Symptoms Reported Integumentary: No Symptoms Reported Hematologic/Lymphatic: No Symptoms Reported Endocrine: No Symptoms Reported Psychiatric: No Symptoms Reported All Other Systems: Reviewed and Negative PE Vital Signs Vitals: Temperature 98.6 F Pulse Rate 91 Respiratory Rate 20 Blood Pressure [Left Arm] 128/60 Blood Pressure 115/56 O2 Sat by Pulse Oximetry 96 General Limitations: No Limitations General Appearance: Alert and In No Apparent Distress Head Head Exam: Normal Inspection Eyes Eye exam: Normal Appearance ENT ENT Exam: Normal Exam, Normal Oropharynx and Normal External Ear Exam Neck Neck Exam: Normal Inspection and Full ROM Chest Chest Inspection: Normal Inspection Respiratory Respiratory Exam: Normal Lung Sounds Bilat Cardiovascular Cardiovascular Exam: Regular Rate, Normal Rhythm and Diastolic Murmur; negative Rubs and Gallop Abdominal Exam Abdominal Exam: Normal Inspection, Normal Bowel Sounds and Soft Rectal Rectal Exam: Deferred Extremeties Extremities Exam: Normal Inspection and Full ROM Back Back Exam: Normal Inspection and Full ROM Neurologic Neurological Exam: Alert and Oriented X3; negative CN II-XII Intact Patient Oriented To: Person, Place and Time Speech: negative Receptive Aphasia and Expressive Aphasia Cerebellar Function: Heel to [place]: Normal Motor Strength - LUE: 5/5 Motor Strength - RUE: 5/5 Motor Strength - LLE: 3/5 Motor Strength - RLE: 5/5 Upper Motor Neuron Exam: Sensory Extinction: Normal Sensory Exam Lower Extremity: 2 Point Discrimination: Normal Psychiatric Psychiatric Exam: Normal Affect and Normal Mood Skin Skin Exam: Warm, Dry, Intact and Normal Color COURSE Treatment Treatment: 69 yo f s/p recent extensive hospital course for covid/ resp failure/ PE currently on AC presents s/p syncopal episode. Witnessed w/ LOC> 2 mins w/ noted episode of vomiting and defecation. No seizure activity. Daughter in law whom witnessed episode concerned regarding apnea during episode. On arrival to ed patient back at baseline mental status. Has residual Lle weakness from prev cva h/e states it has worsened since this syncopal episode. CTH w/ old lacunar infarcts, no ICH or new ischemic CVA. CTA chest w/ evidence of progressive pulmonary embolic disease. No arrhythmias while in ED. LLE 3/5 strength on exam otherwise non focal neuro exam. Loaded with 325 mg asa. Extensive discussion with Dr walls hospitalist regarding case. Will admit to obs. Education/Counseling Education/Counseling: Patient and Family Educated On: Treatment, Diagnosis, Prognosis and Needs for Follow Up ROR Labs Reviewed Laboratory Results Reviewed?: Yes Result Diagrams: 01/04/20 01:37 01/04/20 01:37 Laboratory: WBC 16.8 X10^3/uL (3.6-10.0) H 01/04/20 01:37 RBC 3.56 X10^6/uL (3.5-5.4) 01/04/20 01:37 Hgb 10.5 g/dL (12.0-16.0) L 01/04/20 01:37 Hct 32.1 % (36.0-47.0) L 01/04/20 01:37 MCV 90.2 fL (80.0-100.0) 01/04/20 01:37 MCH 29.6 pg (27.0-34.0) 01/04/20 01:37 MCHC 32.8 g/dL (33.0-35.0) L 01/04/20 01:37 RDW 16.6 % (11.6-16.5) H 01/04/20 01:37 Plt Count 177 X10^3/uL (150.0-450.0) 01/04/20 01:37 Plt Count Comment Adequate (ADEQUATE) 01/04/20 01:37 MPV 8.6 fL (7.4-11.0) 01/04/20 01:37 Neut % (Auto) 88.8 % (42.0-75.0) H 01/04/20 01:37 Lymph % (Auto) 4.2 % (21.0-51.0) L 01/04/20 01:37 Iron % (Auto) 6.0 % (0.0-13.0) 01/04/20 01:37 Eos % (Auto) 0.4 % (0.9-2.9) L 01/04/20 01:37 Baso % (Auto) 0.6 % (0.2-1.0) 01/04/20 01:37 Neut # (Auto) 15.0 x10^3/uL (2.2-4.8) H 01/04/20 01:37 Lymph # (Auto) 0.7 X10^3/uL (1.3-2.9) L 01/04/20 01:37 Iron # (Auto) 1.0 x10^3/uL (0.3-0.8) H 01/04/20 01:37 Eos # (Auto) 0.1 x10^3/uL (0.0-0.2) 01/04/20 01:37 Baso # (Auto) 0.1 X10^3/uL (0.0-0.1) 01/04/20 01:37 Absolute Nucleated RBC 0.0 /100WBC 01/04/20 01:37 Total Counted 100 01/04/20 01:37 Neutrophils % (Manual) 87 % (39-76) H 01/04/20 01:37 Band Neutrophils % 1 % (0-10) 01/04/20 01:37 Lymphocytes % (Manual) 5 % (13-43) L 01/04/20 01:37 Monocytes % (Manual) 6 % (4-9) 01/04/20 01:37 Eosinophils % (Manual) 1 % (0-6) 01/04/20 01:37 Plt Morphology Comment Normal (NORMAL) 01/04/20 01:37 RBC Morphology Normal (NORMAL) 01/04/20 01:37 PT 13.3 SECONDS (11.8-14.3) 01/04/20 01:49 INR Target Range - 01/04/20 01:49 INR 1.04 (0.8-1.3) 01/04/20 01:49 APTT 30.2 SECONDS (22.9-36.5) 01/04/20 01:49 PTT Comment - 01/04/20 01:49 Sodium 143 mmol/L (136-145) 01/04/20 01:37 Corrected Sodium 144 mmol/L (136-145) 01/04/20 01:37 Potassium 3.8 mmol/L (3.5-5.1) 01/04/20 01:37 Chloride 107 mmol/L (98-107) 01/04/20 01:37 Carbon Dioxide 31.2 mmol/L (21-32) 01/04/20 01:37 BUN 11 mg/dL (7-18) 01/04/20 01:37 Creatinine 0.88 mg/dL (0.55-1.02) 01/04/20 01:37 Est GFR (MDRD) Af Amer > 60 (>60) 01/04/20 01:37 Est GFR (MDRD) Non-Af > 60 (>60) 01/04/20 01:37 Glucose 135 mg/dL (65-99) H 01/04/20 01:37 Calcium 8.0 mg/dL (8.5-10.1) L 01/04/20 01:37 Troponin I < 0.02 ng/mL (0-1.5) 01/04/20 01:37 Specimen Type Clean catch urine 01/04/20 01:28 Urine Color Yellow (YELLOW) 01/04/20 01:28 Urine Appearance Clear (CLEAR) 01/04/20 01:28 Urine pH 6.0 (5.0 - 8.0) 01/04/20 01:28 Ur Specific [place] 1.015 (1.000-1.030) 01/04/20 01:28 Urine Protein Negative (NEGATIVE) 01/04/20 01:28 Urine Glucose (UA) Negative (NEGATIVE) 01/04/20 01:28 Urine Ketones Negative (NEGATIVE) 01/04/20 01:28 Urine Occult Blood Negative (NEGATIVE) 01/04/20 01:28 Urine Nitrite Negative (NEGATIVE) 01/04/20 01:28 Urine Bilirubin Negative (NEGATIVE) 01/04/20 01:28 Urine Urobilinogen Normal (NORMAL) 01/04/20 01:28 Ur Leukocyte Esterase Negative (NEGATIVE) 01/04/20 01:28 Other Results Comments: ct head: chronic lacunar infarcts EKG Rate: 88 [place]: Normal Rhythm: NSR Block: None Hypertrophy: None ST: Nonsp Opioid Opioid Risk Tool Age (Marquez box if 16-45): No History of Preadolescent Sexual Abuse: No Total: 0 Total Score Risk Category: Low Risk Copyright: Isaac MICHAEL predicting aberrant behaviors Diagnosis Discharge Problem: Left-sided weakness, Syncope and collapse CVA (cerebral vascular accident) Qualifiers: CVA mechanism: unspecified Qualified Code(s): I63.9 - Cerebral infarction, unspecified
[2020-01-04 01:39] VITALS: BMI 21.2
[2020-01-04] MEDS ORDERED: NS 1000 ML 0 ML ONE (01:47)
[2020-01-04 01:49] LABS: BASOPHILS # (AUTO) 0.1 X10^3/uL (0.0-0.1); BASOPHILS % (AUTO) 0.6 % (0.2-1.0); EOSINOPHILS # (AUTO) 0.1 x10^3/uL (0.0-0.2); EOSINOPHILS % (AUTO) 0.4 % (0.9-2.9); HEMATOCRIT 32.1 % (36.0-47.0); HEMOGLOBIN 10.5 g/dL (12.0-16.0); LYMPHOCYTES # (AUTO) 0.7 X10^3/uL (1.3-2.9); LYMPHOCYTES % (AUTO) 4.2 % (21.0-51.0); MEAN CORPUSCULAR HEMOGLOBIN 29.6 pg (27.0-34.0); MEAN CORPUSCULAR HGB CONC 32.8 g/dL (33.0-35.0); MEAN CORPUSCULAR VOLUME 90.2 fL (80.0-100.0); MEAN PLATELET VOLUME 8.6 fL (7.4-11.0); NEUTROPHILS % (AUTO) 88.8 % (42.0-75.0); PLATELET COUNT 177 X10^3/uL (150.0-450.0); RED BLOOD COUNT 3.56 X10^6/uL (3.5-5.4); RED CELL DISTRIBUTION WIDTH 16.6 % (11.6-16.5); WHITE BLOOD COUNT 16.8 X10^3/uL (3.6-10.0)
[2020-01-04 01:51] LABS: BILIRUBIN,URINE NEGATIVE (NEGATIVE); BLOOD/HEMOGLOBIN,URINE NEGATIVE (NEGATIVE); GLUCOSE, URINE NEGATIVE (NEGATIVE); KETONES,URINE NEGATIVE (NEGATIVE); LEUKOCYTE ESTERASE ,URINE NEGATIVE (NEGATIVE); NITRITES,URINE NEGATIVE (NEGATIVE); PROTEIN,URINE NEGATIVE (NEGATIVE); UROBILINOGEN,URINE NORMAL (NORMAL)
[2020-01-04 01:58] LABS: BAND NEUTROPHILS % 1 % (0-10); PLATELET MORPHOLOGY COMMENT NORMAL (NORMAL)
[2020-01-04 02:01] LABS: BLOOD UREA NITROGEN 11 mg/dL (7-18); CARBON DIOXIDE 31.2 mmol/L (21-32); CHLORIDE 107 mmol/L (98-107); COR NA(FOR HYPERGLY) 144 mmol/L (136-145); CREATININE 0.88 mg/dL (0.55-1.02); SODIUM 143 mmol/L (136-145); TROPONIN I < 0.02 ng/mL (0-1.5); eGFR NON BLACK RACES > 60 (>60)
[2020-01-04 02:02] LABS: APPEARANCE,URINE CLEAR (CLEAR); COLOR,URINE YELLOW (YELLOW)
--- NOTE | 2020-01-04 02:38 | CT ---
History: C/O PASSING OUT WHEN GETTING UP TO GO TO BATHROOM. CVA, HTN, HYST, LOOP RECORDER, ABLATIONExam :BRAIN W/O CONTechnique: Thin section axial ct images of the brain were obtained from the foramen magnum to the vertex without contrast. Sagittal and coronal reconstructions were also performed.Comparison: 09/22/2019Findings:The ventricles are within normal limits in size. No midline shift, mass effect or extra-axial fluid collections. No evidence of acute hemorrhage or acute macroinfarction. Mild cortical atrophy compatible with patient's age. Decreased attenuation in the periventricular and subcortical white matter consistent with microvascular ischemic white matter changes. Chronic lacunar infarcts noted in the posterior limb of the right internal capsule and left caudate.The visualized paranasal sinuses and mastoids are unremarkable. The calvarium is intact.Impression:Mild cortical atrophy with microvascular ischemic white matter changes.Chronic lacunar infarcts involving the posterior limb of the right internal capsule and left caudate.No acute intracranial pathology.Electronically signed by: Shon Duque (Jan 04, 2020 02:37:23)
[2020-01-04] MEDS ORDERED: ZOFRAN INJ 4 MG VIAL IVP ONE (03:59)
--- NOTE | 2020-01-04 04:05 | CT ---
HISTORYsyncopeSTUDYCHEST WITH [id number]/03/2020TECHNIQUEMultiple axial images of the chest were obtained from the thoracic inlet to the upper abdomen after the administration of IV contrast. Dose reduction techniques including Automated Exposure Control (AEC) and adjustment of mA and kV were utilized.FINDINGSThe mediastinum does not demonstrate significant pathological lymphadenopathy. There is no paracardial effusion observed. The heart is normal in size with coronary artery calcifications. The thoracic aorta is normal in its contour without evidence for aneurysmal dilatation. The central pulmonary arterial system does not demonstrate central filling defects to suggest pulmonary emboli.Evaluation of the lung parenchyma emphysematous changes are present throughout the lungs. There are scattered primarily peripheral parenchymal opacities bilaterally. The previously described bilateral pleural effusions have resolved.. No pulmonary nodule or mass can be identified. Small sliding-type hiatal hernia. The bony thorax is unremarkable in its appearance . The visualized portions of the upper abdomen are grossly unremarkable .IMPRESSIONNo evidence of pulmonary embolic disease.Scattered primarily peripheral parenchymal opacities/infiltrates bilaterally, improved from prior study 10/25/2019.No pleural effusions.Small sliding-type hiatal hernia.Electronically signed by: Shon Duque (Jan 04, 2020 04:04:25)
[2020-01-04] MEDS ORDERED: ZOFRAN INJ 4 MG VIAL ONE (04:19)
--- NOTE | 2020-01-04 05:13 | RAD ---
HISTORYC/O PASSING OUT WHEN GETTING UP TO GO TO BATHROOM.STUDYCHEST, 1 [id number]/06/2020FINDINGSThe trachea is midline. The cardiac silhouette is unremarkable. Patchy parenchymal opacities noted in the left lung base. The remainder lungs are clear. No pleural effusion or pneumothorax.. The bony thorax is unremarkable.IMPRESSIONPatchy parenchymal opacities left lung baseElectronically signed by: Shon Duque (Jan 04, 2020 05:12:12)
[2020-01-04] MEDS ORDERED: ASPIRIN PO ONE (05:50)
[2020-01-04] MEDS ORDERED: ASPIRIN ONE (05:51)
[2020-01-04 16:02] VITALS: BP 123/58
== END 2020-01-04 16:24 | disposition home or self-care (01) ==
LOC: OBS 00:59 → ER 00:59 → OBS 06:32
PROVIDERS: ADMIT Obstetrics & Gynecology Obstetrics; ATTEND Obstetrics & Gynecology Obstetrics
DX: E03.8 Other specified hypothyroidism; Z79.01 Long term (current) use of anticoagulants; I10 Essential (primary) hypertension; I69.354 Hemiplegia and hemiparesis following cerebral infarction affecting left non-dominant side; I26.99 Other pulmonary embolism without acute cor pulmonale; Z79.899 Other long term (current) drug therapy; R55 Syncope and collapse; Z86.19 Personal history of other infectious and parasitic diseases

== ENCOUNTER 2020-03-17 07:49 | Inpatient (IN) ==
--- NOTE | 2020-03-17 08:29 | DR.FEVERAD ---
HPI Time seen Time Seen by Provider: 03/17/20 08:05 PCP Primary Care Physician: indu rocha Complaints/Symptoms Chief Complaint:: "I WAS WEAK AT HOME AND COULDN'T GET UP TO THE BATHROOM." Self Treatment fo Chief Complaint: NONE COVID-19 Coronavirus risk:travel/contact w/high risk person: No Has patient experienced Coronavirus symptoms: Yes Coronavirus symptoms experienced: Fever, Coughing and Shortness of Breath Source History Provided: Patient Mode of Arrival Mode of Arrival: EMS Timing Onset of Chief Complaint: 03/17/20 PMH PMH Past Medical History: No Past Medical History: Anxiety, Arthritis, CVA, Depression, Hypertension, Hypothyroidism and Seizures Past Surgical History: Yes Surgical History: Hysterectomy Past Surgical History Comment: ANKLE AND NECK SURGERY Family History History of Family Medical Conditions: No Family Medical History: Cancer Social History Does patient currently use any type of tobacco product: No Have you used tobacco products in the last 12 months: No Type of Tobacco Use: None Does any household member use tobacco: No Do you use any recreational Drugs:: No Lives With: Alone Lives Where: Home Travel Risk Coronavirus risk:travel/contact w/high risk person: No Has patient experienced Coronavirus symptoms: Yes Coronavirus symptoms experienced: Fever, Coughing and Shortness of Breath Infectious screening In the last 2 months have you had wt loss of >10#?: NO Have you had fever, night sweats or hemotysis?: No Have you traveled outside the country in the last 6 months?: No Isolation: Droplet ROS Review of Systems Constitutional: No Symptoms Reported and See HPI Eyes: No Symptoms Reported and See HPI ENTM: No Symptoms Reported and See HPI Respiratoy: No Symptoms Reported and See HPI Cardiovascular: No Symptoms Reported and See HPI Gastrointestinal/Abdominal: No Symptoms Reported and See HPI Genitourinary: No Symptoms Reported and See HPI Neurological: No Symptoms Reported and See HPI Musculoskeletal: No Symptoms Reported and See HPI Integumentary: No Symptoms Reported and See HPI Hematologic/Lymphatic: No Symptoms Reported and See HPI Endocrine: No Symptoms Reported and See HPI Psychiatric: No Symptoms Reported and See HPI All Other Systems: Reviewed and Negative PE Vital Signs Vitals: Temperature 98.8 F Pulse Rate 108 Respiratory Rate 27 Blood Pressure [Left Arm] 123/58 Blood Pressure 101/56 O2 Sat by Pulse Oximetry 100 General Limitations: No Limitations General Appearance: Alert and In No Apparent Distress Head Head Exam: Normal Inspection Eyes Eye exam: Normal Appearance ENT ENT Exam: Normal Exam Neck Neck Exam: Normal Inspection Respiratory Respiratory Exam: Normal Lung Sounds Bilat Cardiovascular Cardiovascular Exam: Regular Rate and Normal Rhythm Abdominal Exam Abdominal Exam: Normal Inspection, Normal Bowel Sounds and Soft Extremities Extremities Exam: Normal Inspection Back Back Exam: Normal Inspection Neurologic Neurological Exam: Alert and Oriented X3 Psychiatric Psychiatric Exam: Normal Affect and Normal Mood Skin Skin Exam: Warm, Dry, Intact and Normal Color ROR Labs Reviewed Result Diagrams: 03/17/20 08:49 03/17/20 08:49 Laboratory: WBC 16.4 X10^3/uL (3.6-10.0) H 03/17/20 08:49 RBC 4.19 X10^6/uL (3.5-5.4) 03/17/20 08:49 Hgb 12.2 g/dL (12.0-16.0) 03/17/20 08:49 Hct 37.8 % (36.0-47.0) 03/17/20 08:49 MCV 90.0 fL (80.0-100.0) 03/17/20 08:49 MCH 29.1 pg (27.0-34.0) 03/17/20 08:49 MCHC 32.3 g/dL (33.0-35.0) L 03/17/20 08:49 RDW 15.8 % (11.6-16.5) 03/17/20 08:49 Plt Count 190 X10^3/uL (150.0-450.0) 03/17/20 08:49 Plt Count Comment Adequate (ADEQUATE) 03/17/20 08:49 MPV 8.8 fL (7.4-11.0) 03/17/20 08:49 Neut % (Auto) 92.2 % (42.0-75.0) H 03/17/20 08:49 Lymph % (Auto) 2.7 % (21.0-51.0) L 03/17/20 08:49 [place] % (Auto) 4.8 % (0.0-13.0) 03/17/20 08:49 Eos % (Auto) 0.1 % (0.9-2.9) L 03/17/20 08:49 Baso % (Auto) 0.2 % (0.2-1.0) 03/17/20 08:49 Neut # (Auto) 15.1 x10^3/uL (2.2-4.8) H 03/17/20 08:49 Lymph # (Auto) 0.4 X10^3/uL (1.3-2.9) L 03/17/20 08:49 [place] # (Auto) 0.8 x10^3/uL (0.3-0.8) 03/17/20 08:49 Eos # (Auto) 0.0 x10^3/uL (0.0-0.2) 03/17/20 08:49 Baso # (Auto) 0.0 X10^3/uL (0.0-0.1) 03/17/20 08:49 Absolute Nucleated RBC 0.0 /100WBC 03/17/20 08:49 Total Counted 100 03/17/20 08:49 Neutrophils % (Manual) 90 % (39-76) H 03/17/20 08:49 Band Neutrophils % 3 % (0-10) 03/17/20 08:49 Lymphocytes % (Manual) 4 % (13-43) L 03/17/20 08:49 Monocytes % (Manual) 3 % (4-9) L 03/17/20 08:49 Plt Morphology Comment Normal (NORMAL) 03/17/20 08:49 RBC Morphology Normal (NORMAL) 03/17/20 08:49 Sodium 144 mmol/L (136-145) 03/17/20 08:49 Corrected Sodium TNP 03/17/20 08:49 Potassium 3.7 mmol/L (3.5-5.1) 03/17/20 08:49 Chloride 105 mmol/L (98-107) 03/17/20 08:49 Carbon Dioxide 33.0 mmol/L (21-32) H 03/17/20 08:49 BUN 13 mg/dL (7-18) 03/17/20 08:49 Creatinine 0.98 mg/dL (0.55-1.02) 03/17/20 08:49 Est GFR (MDRD) Af Amer > 60 (>60) 03/17/20 08:49 Est GFR (MDRD) Non-Af 59 (>60) 03/17/20 08:49 Glucose 97 mg/dL (65-99) 03/17/20 08:49 Lactic Acid 1.1 mmol/L (0.4-2.0) 03/17/20 08:49 Calcium 8.9 mg/dL (8.5-10.1) 03/17/20 08:49 Corrected Calcium TNP 03/17/20 08:49 Total Bilirubin 0.30 mg/dL (0.2-1.0) 03/17/20 08:49 AST 14 Units/L (15-37) L 03/17/20 08:49 ALT 18 Units/L (12-78) 03/17/20 08:49 Alkaline Phosphatase 86 Units/L (46-116) 03/17/20 08:49 Creatine Kinase 62 Units/L (26-192) 03/17/20 08:49 CK-MB (CK-2) < 1.0 ng/mL (0-4.0) 03/17/20 08:49 CK/CKMB % Calc 1.6 % (<4) 03/17/20 08:49 Troponin I < 0.02 ng/mL (0-1.5) 03/17/20 08:49 Total Protein 6.6 g/dL (6.4-8.2) 03/17/20 08:49 Albumin 3.4 g/dL (3.4-5.0) 03/17/20 08:49 Globulin 3.2 g/dL (2.5-4.5) 03/17/20 08:49 Albumin/Globulin Ratio 1.1 Ratio (1.1-2.1) 03/17/20 08:49 Specimen Type Catherized urine 03/17/20 09:30 Urine Color Yellow (YELLOW) 03/17/20 09:30 Urine Appearance Clear (CLEAR) 03/17/20 09:30 Urine pH 6.0 (5.0 - 8.0) 03/17/20 09:30 Ur Specific [place] 1.015 (1.000-1.030) 03/17/20 09:30 Urine Protein 2+ (NEGATIVE) 03/17/20 09:30 Urine Glucose (UA) Negative (NEGATIVE) 03/17/20 09:30 Urine Ketones Negative (NEGATIVE) 03/17/20 09:30 Urine Occult Blood Negative (NEGATIVE) 03/17/20 09:30 Urine Nitrite Negative (NEGATIVE) 03/17/20 09:30 Urine Bilirubin Negative (NEGATIVE) 03/17/20 09:30 Urine Urobilinogen Normal (NORMAL) 03/17/20 09:30 Ur Leukocyte Esterase Negative (NEGATIVE) 03/17/20 09:30 Urine RBC None seen /HPF (0-3) 03/17/20 09:30 Urine WBC None seen /HPF (0-5) 03/17/20 09:30 Ur Squamous Epith Cells Rare /HPF (NEGATIVE) 03/17/20 09:30 Urine Bacteria Negative /HPF (NEGATIVE) 03/17/20 09:30 Ur Culture Indicated? No/not indicated 03/17/20 09:30 SARS-CoV-2 (PCR) Negative (NEGATIVE) 03/17/20 10:06 Opioid Opioid Risk Tool Age (Marquez box if 16-45): No History of Preadolescent Sexual Abuse: No Total: 0 Total Score Risk Category: Low Risk Copyright: Isaac MICHAEL predicting aberrant behaviors
[2020-03-17 09:11] LABS: BASOPHILS % (AUTO) 0.2 % (0.2-1.0); EOSINOPHILS % (AUTO) 0.1 % (0.9-2.9); HEMATOCRIT 37.8 % (36.0-47.0); HEMOGLOBIN 12.2 g/dL (12.0-16.0); LYMPHOCYTES # (AUTO) 0.4 X10^3/uL (1.3-2.9); LYMPHOCYTES % (AUTO) 2.7 % (21.0-51.0); MEAN CORPUSCULAR HEMOGLOBIN 29.1 pg (27.0-34.0); MEAN CORPUSCULAR HGB CONC 32.3 g/dL (33.0-35.0); MEAN PLATELET VOLUME 8.8 fL (7.4-11.0); MONOCYTES # (AUTO) 0.8 x10^3/uL (0.3-0.8); MONOCYTES % (AUTO) 4.8 % (0.0-13.0); NEUTROPHILS # (AUTO) 15.1 x10^3/uL (2.2-4.8); NEUTROPHILS % (AUTO) 92.2 % (42.0-75.0); PLATELET COUNT 190 X10^3/uL (150.0-450.0); RED BLOOD COUNT 4.19 X10^6/uL (3.5-5.4); RED CELL DISTRIBUTION WIDTH 15.8 % (11.6-16.5); WHITE BLOOD COUNT 16.4 X10^3/uL (3.6-10.0)
--- NOTE | 2020-03-17 09:18 | CT ---
HISTORYAMSSTUDYBRAIN W/O [id number]/12/2020 CT brainTECHNIQUEMultiple axial images of the head were performed from the skullbase to the vertex using standard departmental protocol. Sagittal and coronal reformatted images were performed. Dose reduction techniques including Automated Exposure Control (AEC) and adjustment of mA and kV were utilized.FINDINGSThe lateral ventricles and basilar cisterns are patent. Mild low attenuation change in the subcortical and deep supratentorial white matter. Stable chronic lacunar infarcts at the posterior limb right internal capsule and left caudate. No parenchymal mass or hematoma. No extra-axial collection. Jefferson-white differentiation appears acutely preserved. The globes are intact. Paranasal sinuses and mastoid air cells are clear. The calvarium is intact.IMPRESSIONNo acute intracranial abnormality. No significant change from prior.Electronically signed by: Shane Jules (Mar 17, 2020 09:16:39)
--- NOTE | 2020-03-17 09:19 | RAD ---
HISTORYSOBSTUDYPortable AP [id number]/20/2020FINDINGSContinued normal heart size. Pulmonary hyperinflation, prominent yoan tral pulmonary arteries and chronic coarsening of interstitial pattern. Recurrent infiltrates suggest ed in the left lower lobe or lingula. No consolidation, pleural fluid or pneumothorax seen.IMPRESSION Findings suggest a recurrence of left-sided infiltrate/pneumonia when compared to prior similar exam. Underlying COPD.Electronically signed by: KIMBERLY MELTON (Mar 17, 2020 09:17:28)
[2020-03-17 09:21] LABS: BLOOD UREA NITROGEN 13 mg/dL (7-18); CALCIUM 8.9 mg/dL (8.5-10.1); CHLORIDE 105 mmol/L (98-107); CREATININE 0.98 mg/dL (0.55-1.02); SODIUM 144 mmol/L (136-145); TROPONIN I < 0.02 ng/mL (0-1.5); eGFR NON BLACK RACES 59 (>60)
[2020-03-17 09:25] LABS: ALANINE AMINOTRANSFERASE 18 Units/L (12-78); ALBUMIN 3.4 g/dL (3.4-5.0); ALKALINE PHOSPHATASE 86 Units/L (46-116); ASPARTATE AMINO TRANSFERASE 14 Units/L (15-37); CKMB % 1.6 % (<4); CREATINE KINASE 62 Units/L (26-192); CREATINE KINASE MB < 1.0 ng/mL (0-4.0); TOTAL PROTEIN 6.6 g/dL (6.4-8.2)
[2020-03-17 09:35] LABS: LACTIC ACID 1.1 mmol/L (0.4-2.0)
[2020-03-17 09:37] LABS: BAND NEUTROPHILS % 3 % (0-10); PLATELET MORPHOLOGY COMMENT NORMAL (NORMAL)
[2020-03-17 09:49] LABS: BILIRUBIN,URINE NEGATIVE (NEGATIVE); BLOOD/HEMOGLOBIN,URINE NEGATIVE (NEGATIVE); GLUCOSE, URINE NEGATIVE (NEGATIVE); KETONES,URINE NEGATIVE (NEGATIVE); LEUKOCYTE ESTERASE ,URINE NEGATIVE (NEGATIVE); NITRITES,URINE NEGATIVE (NEGATIVE); PROTEIN,URINE 2+ (NEGATIVE); UROBILINOGEN,URINE NORMAL (NORMAL)
[2020-03-17] MEDS ORDERED: ROCEPHIN 1 GRAM IV PREMIX 1 G/50 ML IV.SOLN. IV ONE (09:56)
[2020-03-17 10:01] LABS: APPEARANCE,URINE CLEAR (CLEAR); BACTERIA,URINE NEGATIVE /HPF (NEGATIVE); COLOR,URINE YELLOW (YELLOW); RBC,URINE NONE SEEN /HPF (0-3); SQUAMOUS EPITHELIAL CELL,UR RARE /HPF (NEGATIVE)
[2020-03-17] MEDS: ROCEPHIN VIAL 1 GRAM 1 G in NS 100 ML IV + SPIKE MINIBAG* 100 ML IV ONE (10:29)
[2020-03-17] MEDS ORDERED: KEPPRA TAB 500 MG PO ONE ×2 (11:19→11:25)
[2020-03-17] MEDS ORDERED: KEPPRA TAB 500 MG ONE (11:20)
[2020-03-17] MEDS ORDERED: TUSSIONEX PENNKINETIC SUSP PO PRN (12:12)
[2020-03-17] MEDS ORDERED: LIORESAL PO PRN (12:12)
[2020-03-17] MEDS ORDERED: TYLENOL 500 MG TAB EXTRA STRENGTH PO PRN (12:40)
[2020-03-17] MEDS ORDERED: DUONEB 0.5 MG/3 MG (3 mL) NEB SCH ×2 (13:00→14:00)
[2020-03-17] MEDS: NS 1/2 1000 ML IV 1,000 ML IV SCH (13:30)
[2020-03-17] MEDS: ZOSYN VIAL 3.375 GRAMS 3.375 G in NS 100 ML IV + SPIKE MINIBAG* 100 ML IV SCH ×3 (15:00→21:25)
[2020-03-17] MEDS: NEURONTIN CAP 400 MG PO SCH ×2 (15:00→21:26)
[2020-03-17 15:04] VITALS: BMI 22.4
[2020-03-17] MEDS: ROBITUSSIN DM PO SCH ×3 (17:12→21:24)
[2020-03-17] MEDS ORDERED: NS 1/2 1000 ML IV 1,000 ML IV ONE (17:17)
[2020-03-17] MEDS: DUONEB 0.5 MG/3 MG (3 mL) NEB SCH ×2 (17:19→20:28)
[2020-03-17] MEDS: PATIENT'S HOME MEDICATION SC SCH (17:38)
[2020-03-17] MEDS: PULMICORT NEB TX 0.5 MG NEB SCH (20:28)
[2020-03-17] MEDS ORDERED: NEURONTIN CAP 400 MG PO SCH ×2 (21:00→22:00)
[2020-03-17] MEDS ORDERED: PULMICORT NEB TX 0.5 MG NEB SCH (21:00)
[2020-03-17] MEDS ORDERED: KEPPRA TAB 500 MG PO SCH (21:00)
[2020-03-17] MEDS: KEPPRA TAB 500 MG PO SCH (21:23)
[2020-03-17] MEDS: REQUIP PO SCH (21:24)
[2020-03-17] MEDS: PEPCID TAB 20 MG PO SCH (21:24)
[2020-03-18] MEDS: DUONEB 0.5 MG/3 MG (3 mL) NEB SCH ×6 (01:05→20:14)
[2020-03-18] MEDS ORDERED: NS 1/2 1000 ML IV 1,000 ML IV ONE (01:51)
[2020-03-18] MEDS: ZOSYN VIAL 3.375 GRAMS 3.375 G in NS 100 ML IV + SPIKE MINIBAG* 100 ML IV SCH ×3 (05:34→21:11)
[2020-03-18] MEDS: NEURONTIN CAP 400 MG PO SCH ×3 (05:34→21:11)
--- NOTE | 2020-03-18 06:27 | RAD ---
HISTORYRespiratory distressSTUDYChest AP [id number]/24/2020FINDINGSPatient is rotated to the left. Heart size is normal. No congesti ve heart failure is noted. Right lung is clear. Left perihilar infiltrates unchanged. There is a loop recorder device present. No pleural effusions are identified. Bony thorax is unremarkable.IMPRESSION No change left perihilar infiltratesElectronically signed by: SEB RAYMOND (Mar 18, 2020 06:25:16)
[2020-03-18 06:45] LABS: BASOPHILS % (AUTO) 0.2 % (0.2-1.0); HEMATOCRIT 29.1 % (36.0-47.0); LYMPHOCYTES # (AUTO) 1.6 X10^3/uL (1.3-2.9); MEAN CORPUSCULAR HEMOGLOBIN 29.5 pg (27.0-34.0); MEAN CORPUSCULAR HGB CONC 32.6 g/dL (33.0-35.0); MEAN CORPUSCULAR VOLUME 90.5 fL (80.0-100.0); MEAN PLATELET VOLUME 9.2 fL (7.4-11.0); MONOCYTES # (AUTO) 1.2 x10^3/uL (0.3-0.8); MONOCYTES % (AUTO) 5.7 % (0.0-13.0); NEUTROPHILS # (AUTO) 17.4 x10^3/uL (2.2-4.8); NEUTROPHILS % (AUTO) 86.1 % (42.0-75.0); PLATELET COUNT 131 X10^3/uL (150.0-450.0); RED BLOOD COUNT 3.22 X10^6/uL (3.5-5.4); WHITE BLOOD COUNT 20.3 X10^3/uL (3.6-10.0)
[2020-03-18 07:00] LABS: HEMOGLOBIN 9.5 g/dL (12.0-16.0)
[2020-03-18 07:11] LABS: ALANINE AMINOTRANSFERASE 14 Units/L (12-78); ALBUMIN 2.6 g/dL (3.4-5.0); ALKALINE PHOSPHATASE 67 Units/L (46-116); ASPARTATE AMINO TRANSFERASE 16 Units/L (15-37); BLOOD UREA NITROGEN 15 mg/dL (7-18); CALCIUM 8.7 mg/dL (8.5-10.1); CHLORIDE 105 mmol/L (98-107); COR CA(FOR HYPOALB) 9.8 mg/dL (8.5-10.1); CREATININE 0.78 mg/dL (0.55-1.02); SODIUM 141 mmol/L (136-145); TOTAL PROTEIN 5.7 g/dL (6.4-8.2); eGFR NON BLACK RACES > 60 (>60)
[2020-03-18 07:29] LABS: PLATELET MORPHOLOGY COMMENT NORMAL (NORMAL)
--- NOTE | 2020-03-18 08:58 | DR.H&P ---
H&P History & Physical for Day of: H&P Date: 03/18/20 Chief Complaint Chief Complaint: weakness, fever Allergies Allergies Allergy/AdvReac Type Severity Reaction Status Date / Time Sulfa (Sulfonamide Allergy Verified 03/17/20 08:00 Antibiotics) [SULFA] History of Present Illness History of Present Illness: Ms. Umanzor is a 69 y/o female with a PMH of anemia, PE, HLD, GERD presented with weakness, fever, chills and dyspnea. She was diagnosed with COVID pneumonia and PE few months ago and had to be transferred to [facility]. She states she has been on continuous O2 2L since then. She states she started feeling weak a day ago and had fever/chills so she came to the ED. She had the flu shot last week and did not feel sick after. She has dry cough. Denies sick contact at home or any exposure. She reports recurrent pna due to aspiration. She was evaluated for that in [facility] and was told to eat small frequent meals and sit up while eating. She also has hiatal hernia. ED work-up - temp noted to be 102 , has remained afebrile overnight - Labs: WBC 16 on admission, now 20 Plt 131 Hgb 9.5 lactic acid 1.1 COVID (-) - CXR: left sided infiltrate She was given a dose of Rocephin and started on gentle hydration. Plan: will switch to Zosyn, continue duonebs/pulmicort. Continue gentle hydration. Monitor AM labs. Speech consult to assess swallow and diet recommendations. Resume home meds. Patient takes Fondaparinux Sc daily and is using her home medication while in the hospital. Denies active bleeding. Past Medical History Past Medical History: Anxiety, Arthritis, CVA, Depression, Hypertension, Hypothyroidism and Seizures Past Surgical History Surgical History: Hysterectomy Family History Family Medical History: Cancer Social History Does patient currently use any type of tobacco product: No Have you used tobacco products in the last 12 months: No Type of Tobacco Use: None Does any household member use tobacco: No Alcohol Use: None Drug Use: None Prescription drug monitoring program results: PDMP reviewed and no concerns identified Medications Home Medications: Sulfa (Sulfonamide Antibiotics) [SULFA] Allergy (Verified 03/17/20 08:00) CONTINUE taking the following medications fondaparinux 0.6 mg SUBCUT DAILY 03/17/20 [History] levetiracetam 500 mg PO BID 03/17/20 [History] Labs Result Diagrams: 03/18/20 05:23 03/18/20 05:23 Labs: Laboratory WBC 20.3 X10^3/uL (3.6-10.0) H 03/18/20 05:23 RBC 3.22 X10^6/uL (3.5-5.4) L 03/18/20 05:23 Hgb 9.5 g/dL (12.0-16.0) L D 03/18/20 05:23 Hct 29.1 % (36.0-47.0) L 03/18/20 05:23 MCV 90.5 fL (80.0-100.0) 03/18/20 05:23 MCH 29.5 pg (27.0-34.0) 03/18/20 05:23 MCHC 32.6 g/dL (33.0-35.0) L 03/18/20 05:23 RDW 16.0 % (11.6-16.5) 03/18/20 05:23 Plt Count 131 X10^3/uL (150.0-450.0) L 03/18/20 05:23 Plt Count Comment Decreased (ADEQUATE) A 03/18/20 05:23 MPV 9.2 fL (7.4-11.0) 03/18/20 05:23 Neut % (Auto) 86.1 % (42.0-75.0) H 03/18/20 05:23 Lymph % (Auto) 8.0 % (21.0-51.0) L 03/18/20 05:23 [place] % (Auto) 5.7 % (0.0-13.0) 03/18/20 05:23 Eos % (Auto) 0.0 % (0.9-2.9) L 03/18/20 05:23 Baso % (Auto) 0.2 % (0.2-1.0) 03/18/20 05:23 Neut # (Auto) 17.4 x10^3/uL (2.2-4.8) H 03/18/20 05:23 Lymph # (Auto) 1.6 X10^3/uL (1.3-2.9) 03/18/20 05:23 [place] # (Auto) 1.2 x10^3/uL (0.3-0.8) H 03/18/20 05:23 Eos # (Auto) 0.0 x10^3/uL (0.0-0.2) 03/18/20 05:23 Baso # (Auto) 0.0 X10^3/uL (0.0-0.1) 03/18/20 05:23 Absolute Nucleated RBC 0.0 /100WBC 03/18/20 05:23 Total Counted 100 03/18/20 05:23 Neutrophils % (Manual) 86 % (39-76) H 03/18/20 05:23 Band Neutrophils % 3 % (0-10) 03/17/20 08:49 Lymphocytes % (Manual) 9 % (13-43) L 03/18/20 05:23 Monocytes % (Manual) 5 % (4-9) 03/18/20 05:23 Plt Morphology Comment Normal (NORMAL) 03/18/20 05:23 RBC Morphology Normal (NORMAL) 03/18/20 05:23 Sodium 141 mmol/L (136-145) 03/18/20 05:23 Corrected Sodium TNP 03/18/20 05:23 Potassium 3.5 mmol/L (3.5-5.1) 03/18/20 05:23 Chloride 105 mmol/L (98-107) 03/18/20 05:23 Carbon Dioxide 27.0 mmol/L (21-32) 03/18/20 05:23 BUN 15 mg/dL (7-18) 03/18/20 05:23 Creatinine 0.78 mg/dL (0.55-1.02) 03/18/20 05:23 Est GFR (MDRD) Af Amer > 60 (>60) 03/18/20 05:23 Est GFR (MDRD) Non-Af > 60 (>60) 03/18/20 05:23 Glucose 91 mg/dL (65-99) 03/18/20 05:23 Lactic Acid 1.1 mmol/L (0.4-2.0) 03/17/20 08:49 Calcium 8.7 mg/dL (8.5-10.1) 03/18/20 05:23 Corrected Calcium 9.8 mg/dL (8.5-10.1) 03/18/20 05:23 Total Bilirubin 0.30 mg/dL (0.2-1.0) 03/18/20 05:23 AST 16 Units/L (15-37) 03/18/20 05:23 ALT 14 Units/L (12-78) 03/18/20 05:23 Alkaline Phosphatase 67 Units/L (46-116) 03/18/20 05:23 Creatine Kinase 62 Units/L (26-192) 03/17/20 08:49 CK-MB (CK-2) < 1.0 ng/mL (0-4.0) 03/17/20 08:49 CK/CKMB % Calc 1.6 % (<4) 03/17/20 08:49 Troponin I < 0.02 ng/mL (0-1.5) 03/17/20 08:49 Total Protein 5.7 g/dL (6.4-8.2) L 03/18/20 05:23 Albumin 2.6 g/dL (3.4-5.0) L 03/18/20 05:23 Globulin 3.1 g/dL (2.5-4.5) 03/18/20 05:23 Albumin/Globulin Ratio 0.8 Ratio (1.1-2.1) L 03/18/20 05:23 Specimen Type Catherized urine 03/17/20 09:30 Urine Color Yellow (YELLOW) 03/17/20 09:30 Urine Appearance Clear (CLEAR) 03/17/20 09:30 Urine pH 6.0 (5.0 - 8.0) 03/17/20 09:30 Ur Specific [place] 1.015 (1.000-1.030) 03/17/20 09:30 Urine Protein 2+ (NEGATIVE) 03/17/20 09:30 Urine Glucose (UA) Negative (NEGATIVE) 03/17/20 09:30 Urine Ketones Negative (NEGATIVE) 03/17/20 09:30 Urine Occult Blood Negative (NEGATIVE) 03/17/20 09:30 Urine Nitrite Negative (NEGATIVE) 03/17/20 09:30 Urine Bilirubin Negative (NEGATIVE) 03/17/20 09:30 Urine Urobilinogen Normal (NORMAL) 03/17/20 09:30 Ur Leukocyte Esterase Negative (NEGATIVE) 11/24/20 09:30 Urine RBC None seen /HPF (0-3) 03/17/20 09:30 Urine WBC None seen /HPF (0-5) 03/17/20 09:30 Ur Squamous Epith Cells Rare /HPF (NEGATIVE) 03/17/20 09:30 Urine Bacteria Negative /HPF (NEGATIVE) 03/17/20 09:30 Ur Culture Indicated? No/not indicated 03/17/20 09:30 SARS-CoV-2 (PCR) Negative (NEGATIVE) 03/17/20 10:06 Review of Systems Constitutional: Fever, Weakness and Malaise Eyes: No Symptoms Reported ENT: No Symptoms Reported Respiratory: Cough and Dry Cardiovascular: No Symptoms Reported Gastrointestinal: No Symptoms Reported Genitourinary: No Symptoms Reported Musculoskeletal: No Symptoms Reported Skin: No Symptoms Reported Neurological: No Symptoms Reported Physical Exam Vital Signs: Temperature 97.6 F Pulse Rate [Right] 92 Pulse Rate [Left Brachial] 106 Pulse Rate 101 Respiratory Rate 13 Blood Pressure [Right Arm] 96/52 Blood Pressure [Left Arm] 103/54 Blood Pressure 91/54 O2 Sat by Pulse Oximetry 99 Oriented: Normal Eyes: Normal Ear: Normal Nose: Normal Throat: Normal Respiratory: Diminished Throughout Cardiovascular: Normal Auscultation: Bowel Sounds: Normal Palpation: Normal Tenderness: Normal Skin: Normal Musculoskeletal: Normal Psychiatric: Normal Mood Description: Calm Affect: Normal Speech Pattern: Clear and Appropriate Assessment/Plan (1) Pneumonia: Qualifiers: Aspiration pneumonia type: unspecified Laterality: left Lung location: unspecified part of lung Pneumonia type: aspiration pneumonia Qualified Code(s): J69.0 - Pneumonitis due to inhalation of food and vomit Status: Acute (2) Hypotension: Qualifiers: Hypotension type: unspecified hypotension type Qualified Code(s): I95.9 - Hypotension, unspecified Status: Acute (3) Anemia: Qualifiers: Anemia type: unspecified type Qualified Code(s): D64.9 - Anemia, unspecified Status: Acute (4) Atrial fibrillation: Qualifiers: Atrial fibrillation type: unspecified Qualified Code(s): I48.91 - Unspecified atrial fibrillation Status: Chronic (5) Oxygen dependent: Status: Acute (6) Pulmonary embolism: Qualifiers: Acute cor pulmonale presence: unspecified Chronicity: chronic Pulmonary embolism type: unspecified Qualified Code(s): I27.82 - Chronic pulmonary embolism Status: Acute (7) Seizures: Status: Acute Review H&P Reviewed: Yes Patient was examined?: Yes
[2020-03-18] MEDS ORDERED: FONDAPARINUX 7.5 MG/0.6 ML subcut SCH (09:00)
[2020-03-18] MEDS: CLARITIN PO SCH (09:37)
[2020-03-18] MEDS: KEPPRA TAB 500 MG PO SCH ×2 (09:37→20:50)
[2020-03-18] MEDS: PATIENT'S HOME MEDICATION SC SCH (09:38)
[2020-03-18] MEDS: LIPITOR TAB 40 MG PO SCH (09:38)
[2020-03-18] MEDS: PROTONIX TAB 40 MG PO SCH (09:39)
[2020-03-18] MEDS: PriLOSEC PO SCH (09:39)
[2020-03-18] MEDS: PEPCID TAB 20 MG PO SCH ×2 (09:39→20:50)
[2020-03-18] MEDS: SINGULAIR TAB 10 MG PO SCH (09:40)
[2020-03-18] MEDS: PROzac PO SCH (09:40)
[2020-03-18] MEDS: ROBITUSSIN DM PO SCH ×4 (09:40→20:51)
[2020-03-18] MEDS: SYNTHROID 88 mcg TAB PO SCH (09:41)
[2020-03-18] MEDS: VSL#3 PO SCH (09:41)
[2020-03-18] MEDS: REQUIP PO SCH ×2 (09:45→20:51)
[2020-03-18] MEDS: PULMICORT NEB TX 0.5 MG NEB SCH ×2 (09:50→20:13)
[2020-03-18] MEDS ORDERED: VITAMIN D (1.25MG) PO SCH (13:06)
[2020-03-18] MEDS ORDERED: KLOR-CON PO PRN (14:03)
[2020-03-18] MEDS ORDERED: POTASSIUM CHLORIDE LIQ 20 MEQ UDC PO PRN (14:03)
[2020-03-18] MEDS ORDERED: POTASSIUM CHL 60 MEQ/NS 0.45% 500 ML IV PRN (14:03)
[2020-03-18] MEDS ORDERED: MICRO K EXTEN CAP 10 MEQ PO PRN (14:03)
[2020-03-18] MEDS ORDERED: K-RIDER 10 MEQ/NS 100 ML 10 MEQ/100 ML BAG IV PRN (14:03)
[2020-03-18] MEDS ORDERED: POTASSIUM CHL 40 MEQ/NS 0.45% 500 ML IV PRN (14:03)
[2020-03-18] MEDS ORDERED: K-DUR TAB 20 MEQ PO PRN (14:03)
[2020-03-18] MEDS ORDERED: K-DUR TAB 20 MEQ PO ONE (14:16)
[2020-03-18] MEDS: ZOFRAN INJ 4 MG VIAL IVP PRN (14:51)
[2020-03-18] MEDS ORDERED: ZOFRAN INJ 4 MG VIAL ONE (14:53)
[2020-03-18] MEDS: NS 1/2 1000 ML IV 1,000 ML IV SCH (18:44)
[2020-03-19] MEDS: DUONEB 0.5 MG/3 MG (3 mL) NEB SCH ×6 (00:36→20:39)
[2020-03-19 06:11] LABS: BASOPHILS # (AUTO) 0.1 X10^3/uL (0.0-0.1); BASOPHILS % (AUTO) 0.4 % (0.2-1.0); EOSINOPHILS # (AUTO) 0.1 x10^3/uL (0.0-0.2); EOSINOPHILS % (AUTO) 0.7 % (0.9-2.9); HEMATOCRIT 28.3 % (36.0-47.0); HEMOGLOBIN 9.3 g/dL (12.0-16.0); LYMPHOCYTES # (AUTO) 1.4 X10^3/uL (1.3-2.9); LYMPHOCYTES % (AUTO) 11.8 % (21.0-51.0); MEAN CORPUSCULAR HEMOGLOBIN 29.8 pg (27.0-34.0); MEAN CORPUSCULAR VOLUME 90.4 fL (80.0-100.0); MEAN PLATELET VOLUME 9.1 fL (7.4-11.0); MONOCYTES # (AUTO) 0.8 x10^3/uL (0.3-0.8); MONOCYTES % (AUTO) 6.9 % (0.0-13.0); NEUTROPHILS # (AUTO) 9.8 x10^3/uL (2.2-4.8); NEUTROPHILS % (AUTO) 80.2 % (42.0-75.0); PLATELET COUNT 165 X10^3/uL (150.0-450.0); RED BLOOD COUNT 3.13 X10^6/uL (3.5-5.4); RED CELL DISTRIBUTION WIDTH 15.7 % (11.6-16.5); WHITE BLOOD COUNT 12.3 X10^3/uL (3.6-10.0)
[2020-03-19 06:20] LABS: BLOOD UREA NITROGEN 8 mg/dL (7-18); CALCIUM 8.9 mg/dL (8.5-10.1); CARBON DIOXIDE 29.7 mmol/L (21-32); CHLORIDE 106 mmol/L (98-107); CREATININE 0.74 mg/dL (0.55-1.02); SODIUM 142 mmol/L (136-145); eGFR NON BLACK RACES > 60 (>60)
--- NOTE | 2020-03-19 06:57 | RAD ---
HISTORYSOBSTUDYCHEST, 1 [id number]/25/2020FINDINGSThe trachea is midline. The cardiac silhouette is unremarkable. Persistent interstitial lung changes left sole thorax are observed. The bony thorax is unremarkable.IMPRESSIONDiffuse interstitial lung changes left sole thorax are observed may be on the basis of underlying atypical pneumonia.Electronically signed by: SWATI LOVE (Mar 19, 2020 06:55:54)
[2020-03-19] MEDS: PULMICORT NEB TX 0.5 MG NEB SCH ×2 (08:50→20:39)
[2020-03-19] MEDS: PEPCID TAB 20 MG PO SCH ×2 (09:15→20:30)
[2020-03-19] MEDS: REQUIP PO SCH ×2 (09:15→20:30)
[2020-03-19] MEDS: KEPPRA TAB 500 MG PO SCH ×2 (09:15→20:32)
[2020-03-19] MEDS: SINGULAIR TAB 10 MG PO SCH (09:15)
[2020-03-19] MEDS: VSL#3 PO SCH (09:15)
[2020-03-19] MEDS: ROBITUSSIN DM PO SCH ×4 (09:15→20:30)
[2020-03-19] MEDS: SYNTHROID 88 mcg TAB PO SCH (09:15)
[2020-03-19] MEDS: LIPITOR TAB 40 MG PO SCH (09:15)
[2020-03-19] MEDS: PROzac PO SCH (09:15)
[2020-03-19] MEDS: PriLOSEC PO SCH (09:15)
[2020-03-19] MEDS: PROTONIX TAB 40 MG PO SCH (09:15)
[2020-03-19] MEDS: CLARITIN PO SCH (09:15)
[2020-03-19] MEDS: PATIENT'S HOME MEDICATION SC SCH (09:25)
[2020-03-19 10:46] LABS: ABG ALLEN TEST POS; ABG HCO3 32.5 mmol/L (22-26)
[2020-03-19] MEDS ORDERED: MUCOMYST (RESPIRATORY USE ONLY) ONE (11:54)
[2020-03-19] MEDS: MUCOMYST (RESPIRATORY USE ONLY) NEB SCH ×3 (13:06→20:39)
[2020-03-19] MEDS: LEVAQUIN PREMIX IV 500 MG 500 MG/100 ML BAG IV SCH (14:06)
[2020-03-19] MEDS: SOLU-Medrol 40 MG VIAL IVP SCH ×2 (14:07→22:00)
[2020-03-19] MEDS: NEURONTIN CAP 400 MG PO SCH ×3 (14:08→22:00)
[2020-03-19] MEDS: ZOFRAN INJ 4 MG VIAL IVP PRN (14:12)
[2020-03-19] MEDS: ZOSYN VIAL 3.375 GRAMS 3.375 G in NS 100 ML IV + SPIKE MINIBAG* 100 ML IV SCH ×3 (15:30→22:00)
[2020-03-19] MEDS ORDERED: NS 1/2 1000 ML IV 1,000 ML IV ONE (19:16)
[2020-03-19] MEDS: NS 1/2 1000 ML IV 1,000 ML IV SCH (20:28)
[2020-03-20] MEDS: DUONEB 0.5 MG/3 MG (3 mL) NEB SCH ×3 (01:00→09:21)
[2020-03-20] MEDS: ZOFRAN INJ 4 MG VIAL IVP PRN (01:06)
[2020-03-20] MEDS: ZOSYN VIAL 3.375 GRAMS 3.375 G in NS 100 ML IV + SPIKE MINIBAG* 100 ML IV SCH (05:16)
[2020-03-20] MEDS: SOLU-Medrol 40 MG VIAL IVP SCH (05:16)
[2020-03-20] MEDS: NEURONTIN CAP 400 MG PO SCH (05:16)
[2020-03-20 05:30] LABS: BASOPHILS % (AUTO) 0.2 % (0.2-1.0); HEMATOCRIT 29.5 % (36.0-47.0); HEMOGLOBIN 9.9 g/dL (12.0-16.0); LYMPHOCYTES # (AUTO) 0.4 X10^3/uL (1.3-2.9); LYMPHOCYTES % (AUTO) 4.2 % (21.0-51.0); MEAN CORPUSCULAR HGB CONC 33.4 g/dL (33.0-35.0); MEAN CORPUSCULAR VOLUME 89.8 fL (80.0-100.0); MEAN PLATELET VOLUME 8.9 fL (7.4-11.0); MONOCYTES # (AUTO) 0.2 x10^3/uL (0.3-0.8); MONOCYTES % (AUTO) 2.4 % (0.0-13.0); NEUTROPHILS # (AUTO) 8.1 x10^3/uL (2.2-4.8); NEUTROPHILS % (AUTO) 93.2 % (42.0-75.0); PLATELET COUNT 208 X10^3/uL (150.0-450.0); RED BLOOD COUNT 3.28 X10^6/uL (3.5-5.4); RED CELL DISTRIBUTION WIDTH 15.6 % (11.6-16.5); WHITE BLOOD COUNT 8.7 X10^3/uL (3.6-10.0)
[2020-03-20 05:35] LABS: BLOOD UREA NITROGEN 12 mg/dL (7-18); CALCIUM 9.3 mg/dL (8.5-10.1); CARBON DIOXIDE 28.4 mmol/L (21-32); CHLORIDE 104 mmol/L (98-107); COR NA(FOR HYPERGLY) 144 mmol/L (136-145); SODIUM 142 mmol/L (136-145); eGFR NON BLACK RACES > 60 (>60)
[2020-03-20 06:13] LABS: PLATELET MORPHOLOGY COMMENT NORMAL (NORMAL)
--- NOTE | 2020-03-20 08:12 | RAD ---
History: [Chest pain and dyspnea].Exam: Single portable view of the chest.Comparison: March 19, 2020.Findings: The trachea is [midline]. The cardiomediastinal silhouette is stable. There is improving left midlung zone and left lower lobe airspace disease/pneumonia. [There is no pneumothorax or mediastinal shift. The remaining lungs are stable. The chest is hyperinflated with an increased AP dimension of the chest, diaphragmatic flattening, and central interstitial changes which would be compatible with changes of obstructive airways disease. No other changes seen. [No acute bony abnormalities are seen].Impression:1. Improving left midlung zone and left lower lobe airspace disease/pneumonia.2. Findings of obstructive airways disease. No other changes from prior seen.Electronically signed by: SAL BURRELL III (Mar 20, 2020 08:12:06)
[2020-03-20] MEDS: PULMICORT NEB TX 0.5 MG NEB SCH (09:21)
[2020-03-20] MEDS: MUCOMYST (RESPIRATORY USE ONLY) NEB SCH (09:21)
[2020-03-20] MEDS: LEVAQUIN PREMIX IV 500 MG 500 MG/100 ML BAG IV SCH (09:33)
[2020-03-20] MEDS: ROBITUSSIN DM PO SCH (09:34)
[2020-03-20] MEDS: REQUIP PO SCH (09:35)
[2020-03-20] MEDS: VSL#3 PO SCH (09:36)
[2020-03-20] MEDS: LIPITOR TAB 40 MG PO SCH (09:36)
[2020-03-20] MEDS: SINGULAIR TAB 10 MG PO SCH (09:36)
[2020-03-20] MEDS: PEPCID TAB 20 MG PO SCH (09:37)
[2020-03-20] MEDS: PROTONIX TAB 40 MG PO SCH (09:38)
[2020-03-20] MEDS: PriLOSEC PO SCH (09:39)
[2020-03-20] MEDS: CLARITIN PO SCH (09:39)
[2020-03-20] MEDS: PROzac PO SCH (09:41)
[2020-03-20] MEDS: KEPPRA TAB 500 MG PO SCH (09:41)
[2020-03-20] MEDS: SYNTHROID 88 mcg TAB PO SCH (09:42)
[2020-03-20] MEDS: PATIENT'S HOME MEDICATION SC SCH (10:40)
[2020-03-20] MEDS ORDERED: ZOFRAN TAB 4 MG PO PRN (11:20)
[2020-03-20] MEDS ORDERED: AUGMENTIN 500 MG/125 MG TAB PO SCH (12:00)
[2020-03-20 12:25] VITALS: BP 120/95
--- NOTE | 2020-03-24 09:43 | PCM.PROG ---
Progress Note - Progress Note for Day of Date of Exam: 03/19/20 - Subjective Subjective: MS. MACIAS IS A 69 YEAR OLD PATIENT WHO WAS ADMITTED TO SERVICES OF . SHE WAS ADMITTED YESTERDAY FOR TREATMENT OF PNEUMONIA AND RESPIRATORY DISTRESS. PATIENT WAS DIAGNOSED WITH COVID PNEUMONIA AND A PE A FEW MONTHS AGO AND WAS TRANSFERRED TO A [facility]. SHE ADMITS TO RECURRENT ASPIRATION PNEUMONIA. TODAY, SHE IS ALERT, LYING IN BED ON MORNING ROUNDS. SHE CONTINUES WITH COMPLAINTS OF SHORTNESS OF BREATH, NON-PRODUCTIVE COUGH, AND WEAKNESS. ON EXAMINATION, HEART IS REGULAR IN RATE AND RHYTHM. BILATERAL LUNGS ARE NOTED WITH SCATTERED WHEEZING THROUGHOUT. ABDOMEN IS ROUND, SOFT, AND NON- TENDER WITH NORMAL BOWEL SOUNDS IN ALL QUADRANTS. HER VITALS THIS MORNING ARE: 98.9-94-20-92%NC-116/59. LABS WERE OBTAINED. ABNORMAL LAB VALUES INCLUDE THE FOLLOWING: WBC 12.3, RBC 3.13, HGB 9.3, HCT 28.3. ABG REVEALED: PH 7.430, PC02 49.0, P02 63.0, HC03 32.5, 02 SAT 92, BASE EXCESS 7.0, FI02 21.0. BLOOD CULTURES ARE PENDING. A CHEST XRAY WAS OBTAINED AND REVEALED: Diffuse interstitial lung changes left sole thorax are observed may be on the basis of underlying atypical pneumonia. WE WILL CONTINUE WITH NEB TX, ANTIBIOTICS, AND CURRENT PLAN OF CARE TODAY. OTHERWISE, WE WILL FOLLOW UP WITH AM LABS AND CONTINUE TO MONITOR. - Past Medical Family Social History Past Med/Fam/Surg Hx: No changes since H&P Allergies: Allergies Sulfa (Sulfonamide Antibiotics) [SULFA] Allergy (Verified 03/17/20 08:00) - Review of Systems ROS: No change since H&P - Vital Signs and I&O's Vital Signs: Temperature 97.1 F Pulse Rate [Right] 94 Pulse Rate [Left Brachial] 85 Pulse Rate 94 Respiratory Rate 18 Blood Pressure [Right Arm] 120/95 Blood Pressure [Left Arm] 121/67 Blood Pressure 91/54 O2 Sat by Pulse Oximetry 94 - Physical Exam Oriented: Normal Eyes: Normal Ear: Normal Nose: Normal Throat: Normal Respiratory: Wheezes Cardiovascular: Normal Auscultation: Bowel Sounds: Normal Palpation: Normal Tenderness: Normal Skin: Normal Musculoskeletal: Normal Psychiatric: Normal Mood Description: Calm Affect: Normal Speech Pattern: Clear, Appropriate - Laboratory and Diagnostics Result Diagrams: 03/20/20 04:05 03/20/20 04:05 Labs: 03/17/20 12:54 Blood Blood Culture - Final 03/17/20 12:50 Blood Blood Culture - Final 03/17/20 08:53 Blood Blood Culture - Final 03/17/20 08:49 Blood Blood Culture - Final Laboratory WBC 8.7 X10^3/uL (3.6-10.0) 03/20/20 04:05 RBC 3.28 X10^6/uL (3.5-5.4) L 03/20/20 04:05 Hgb 9.9 g/dL (12.0-16.0) L 03/20/20 04:05 Hct 29.5 % (36.0-47.0) L 03/20/20 04:05 MCV 89.8 fL (80.0-100.0) 03/20/20 04:05 MCH 30.0 pg (27.0-34.0) 03/20/20 04:05 MCHC 33.4 g/dL (33.0-35.0) 03/20/20 04:05 RDW 15.6 % (11.6-16.5) 03/20/20 04:05 Plt Count 208 X10^3/uL (150.0-450.0) 03/20/20 04:05 Plt Count Comment Adequate (ADEQUATE) 03/20/20 04:05 MPV 8.9 fL (7.4-11.0) 03/20/20 04:05 Neut % (Auto) 93.2 % (42.0-75.0) H 03/20/20 04:05 Lymph % (Auto) 4.2 % (21.0-51.0) L 03/20/20 04:05 [place] % (Auto) 2.4 % (0.0-13.0) 03/20/20 04:05 Eos % (Auto) 0.0 % (0.9-2.9) L 03/20/20 04:05 Baso % (Auto) 0.2 % (0.2-1.0) 03/20/20 04:05 Neut # (Auto) 8.1 x10^3/uL (2.2-4.8) H 03/20/20 04:05 Lymph # (Auto) 0.4 X10^3/uL (1.3-2.9) L 03/20/20 04:05 [place] # (Auto) 0.2 x10^3/uL (0.3-0.8) L 03/20/20 04:05 Eos # (Auto) 0.0 x10^3/uL (0.0-0.2) 03/20/20 04:05 Baso # (Auto) 0.0 X10^3/uL (0.0-0.1) 03/20/20 04:05 Absolute Nucleated RBC 0.0 /100WBC 03/20/20 04:05 Total Counted 100 03/20/20 04:05 Neutrophils % (Manual) 92 % (39-76) H 03/20/20 04:05 Band Neutrophils % 3 % (0-10) 03/17/20 08:49 Lymphocytes % (Manual) 5 % (13-43) L 03/20/20 04:05 Monocytes % (Manual) 3 % (4-9) L 03/20/20 04:05 Plt Morphology Comment Normal (NORMAL) 03/20/20 04:05 RBC Morphology Normal (NORMAL) 03/20/20 04:05 Sample Site Rr 03/19/20 10:23 ABG pH 7.430 (7.35-7.45) 03/19/20 10:23 ABG pCO2 49.0 mmHg (35.0-45.0) H 03/19/20 10:23 ABG pO2 63.0 mmHg (80.0-100.0) L 03/19/20 10:23 ABG HCO3 32.5 mmol/L (22-26) H* 03/19/20 10:23 ABG O2 Saturation 92.0 % (90-100) 03/19/20 10:23 ABG Base Excess 7.0 mmol/L (-2.0-2.0) H 03/19/20 10:23 Reagan Test Pos 03/19/20 10:23 A-a Gradient 25.0 mmHg 03/19/20 10:23 FiO2 21.0 03/19/20 10:23 Blood Gas Comments Hawk well cb 03/19/20 10:23 Sodium 142 mmol/L (136-145) 03/20/20 04:05 Corrected Sodium 144 mmol/L (136-145) 03/20/20 04:05 Potassium 3.9 mmol/L (3.5-5.1) 03/20/20 04:05 Chloride 104 mmol/L (98-107) 03/20/20 04:05 Carbon Dioxide 28.4 mmol/L (21-32) 03/20/20 04:05 BUN 12 mg/dL (7-18) 03/20/20 04:05 Creatinine 0.90 mg/dL (0.55-1.02) 03/20/20 04:05 Est GFR (MDRD) Af Amer > 60 (>60) 03/20/20 04:05 Est GFR (MDRD) Non-Af > 60 (>60) 03/20/20 04:05 Glucose 188 mg/dL (65-99) H 03/20/20 04:05 Lactic Acid 1.1 mmol/L (0.4-2.0) 03/17/20 08:49 Calcium 9.3 mg/dL (8.5-10.1) 03/20/20 04:05 Corrected Calcium 9.8 mg/dL (8.5-10.1) 03/18/20 05:23 Magnesium 2.0 mg/dL (1.7-2.9) 03/18/20 05:23 Total Bilirubin 0.30 mg/dL (0.2-1.0) 03/18/20 05:23 AST 16 Units/L (15-37) 03/18/20 05:23 ALT 14 Units/L (12-78) 03/18/20 05:23 Alkaline Phosphatase 67 Units/L (46-116) 03/18/20 05:23 Creatine Kinase 62 Units/L (26-192) 03/17/20 08:49 CK-MB (CK-2) < 1.0 ng/mL (0-4.0) 03/17/20 08:49 CK/CKMB % Calc 1.6 % (<4) 03/17/20 08:49 Troponin I < 0.02 ng/mL (0-1.5) 03/17/20 08:49 Total Protein 5.7 g/dL (6.4-8.2) L 03/18/20 05:23 Albumin 2.6 g/dL (3.4-5.0) L 03/18/20 05:23 Globulin 3.1 g/dL (2.5-4.5) 03/18/20 05:23 Albumin/Globulin Ratio 0.8 Ratio (1.1-2.1) L 03/18/20 05:23 Specimen Type Catherized urine 03/17/20 09:30 Urine Color Yellow (YELLOW) 03/17/20 09:30 Urine Appearance Clear (CLEAR) 03/17/20 09: Urine pH 6.0 (5.0 - 8.0) 03/17/20 09:30 Ur Specific Powell 1.015 (1.000-1.030) 03/17/20 09:30 Urine Protein 2+ (NEGATIVE) 03/17/20 09:30 Urine Glucose (UA) Negative (NEGATIVE) 03/17/20 09:30 Urine Ketones Negative (NEGATIVE) 03/17/20 09:30 Urine Occult Blood Negative (NEGATIVE) 03/17/20 09:30 Urine Nitrite Negative (NEGATIVE) 03/17/20 09:30 Urine Bilirubin Negative (NEGATIVE) 03/17/20 09:30 Urine Urobilinogen Normal (NORMAL) 03/17/20 09:30 Ur Leukocyte Esterase Negative (NEGATIVE) 03/17/20 09:30 Urine RBC None seen /HPF (0-3) 03/17/20 09:30 Urine WBC None seen /HPF (0-5) 03/17/20 09:30 Ur Squamous Epith Cells Rare /HPF (NEGATIVE) 03/17/20 09:30 Urine Bacteria Negative /HPF (NEGATIVE) 03/17/20 09:30 Ur Culture Indicated? No/not indicated 03/17/20 09:30 Influenza Type A (PCR) Negative (NEGATIVE) 03/18/20 08:37 Influenza Type B (PCR) Negative (NEGATIVE) 03/18/20 08:37 SARS-CoV-2 (PCR) Negative (NEGATIVE) 03/17/20 10:06
== END 2020-03-20 12:30 | disposition home or self-care (01) ==
LOC: ER 07:49 → MED/SURG 11:16
PROVIDERS: ADMIT Internal Medicine; ATTEND Internal Medicine
DX: J18.9 Pneumonia, unspecified organism; R41.82 Altered mental status, unspecified; I48.20 Chronic atrial fibrillation, unspecified; Z86.73 Personal history of transient ischemic attack (TIA), and cerebral infarction without residual deficits; Z20.828 Contact with and (suspected) exposure to other viral communicable diseases; I10 Essential (primary) hypertension; R06.03 Acute respiratory distress; R56.9 Unspecified convulsions; Z99.81 Dependence on supplemental oxygen; I27.82 Chronic pulmonary embolism; Z87.01 Personal history of pneumonia (recurrent); R26.81 Unsteadiness on feet; K44.9 Diaphragmatic hernia without obstruction or gangrene

== ENCOUNTER 2020-10-13 12:40 | Inpatient (IN) ==
[2020-10-13 12:48] VITALS: BMI 23.3
--- NOTE | 2020-10-13 14:42 | RAD ---
HISTORYSOB, COUGH, FEVER, CONGESTION, CHEST PAINSTUDYCHEST, 1 [id number]/01/2021.TECHNIQUEAP view of the chestFINDINGSCardiac and mediastinal contours are within normal limits. ACDF in the cervical spine noted. Bilateral peripheral distribution of airspace disease worst in the left lower lung. No definite pleural effusion or pneumothorax. Background of emphysema.IMPRESSIONBilateral peripheral airspace disease consistent with pneumonia. Recommend follow-up to document resolution. Background of emphysema.Electronically signed by: Shane Jules (Oct 13, 2020 14:41:30)
--- NOTE | 2020-10-13 14:42 | DR.URIAD ---
HPI Time Seen Time Seen by Provider: 10/13/20 12:54 PCP Primary Care Physician: Nirmala Figueroa HPI Comment HPI Comment: Patient presents with the complaint of cough, shortness of breath and pain under left breast with inspiration. Daughter notes that she has had frequent episodes of aspiration pneumonia and this looks like past episodes. Also has h/o DVT/PE due to COVID infection last year. No fever. No known sick contacts. Complaint Chief Complaint:: Pt c/o cough, congestion, fever and pain under rib since last night. COVID-19 Coronavirus risk:travel/contact w/high risk person: No Has patient experienced Coronavirus symptoms: Yes Coronavirus symptoms experienced: Fever and Coughing Source History Provided: Patient Timing Onset of Chief Complaint: 10/12/20 PMH PMH Past Medical History: Yes Past Medical History: Anxiety, Arthritis, CVA, Depression, Hypertension, Hypothyroidism and Seizures Past Medical History Comment: pneumonia Past Surgical History: Yes Surgical History: Hysterectomy and Ortho Surgery Past Surgical History Comment: neck surgery, endoscopy Family History History of Family Medical Conditions: Yes Family Medical History: Cancer Social History Does patient currently use any type of tobacco product: No Have you used tobacco products in the last 12 months: No Type of Tobacco Use: None Does any household member use tobacco: No Alcohol Use: None Do you use any recreational Drugs:: No Lives With: Family Lives Where: Home Travel Risk Coronavirus risk:travel/contact w/high risk person: No Has patient experienced Coronavirus symptoms: Yes Coronavirus symptoms experienced: Fever and Coughing Infectious screening In the last 2 months have you had wt loss of >10#?: NO Have you had fever, night sweats or hemotysis?: No Have you traveled outside the country in the last 6 months?: No Isolation: Standard ROS Review of Systems Constitutional: See HPI Respiratoy: See HPI, Non-Productive Cough and Short of Breath All Other Systems: Reviewed and Negative PE Vital Signs Vitals: Temperature 98.8 F Pulse Rate 107 Respiratory Rate 24 Blood Pressure [Right Arm] 120/95 Blood Pressure 109/57 O2 Sat by Pulse Oximetry 94 General Limitations: No Limitations General Appearance: Alert and In No Apparent Distress Head Head Exam: Normal Inspection, Atraumatic and Normocephalic Eyes Eye exam: Normal Appearance and EOMI Neck Neck Exam: Normal Inspection and Trachea Midline Chest Chest Inspection: Normal Inspection and Symmetric Chest Wall Rise Respiratory Respiratory Exam: Normal Lung Sounds Bilat Respiratory Exam: Bilateral: Clear to Auscultation Cardiovascular Cardiovascular Exam: Regular Rate, Normal Rhythm and Normal Heart Sounds Abdominal Exam Abdominal Exam: Normal Inspection, Normal Bowel Sounds and Soft Extremeties Extremities Exam: Normal Inspection and Full ROM Neurologic Neurological Exam: Alert and Oriented X3 Psychiatric Psychiatric Exam: Normal Affect and Normal Mood Skin Skin Exam: Warm, Dry and Intact COURSE Reevaluation 1st: Unchanged Consultation Called: 16:22 Consultation Comments: Spoke with Dr. Lind who accepts patient for admission with dx of PNA ROR Labs Reviewed Laboratory Results Reviewed?: Yes Result Diagrams: 10/13/20 14:30 10/13/20 14:30 Laboratory: WBC 23.3 X10^3/uL (3.6-10.0) H 10/13/20 14:30 RBC 3.99 X10^6/uL (3.5-5.4) 10/13/20 14:30 Hgb 11.7 g/dL (12.0-16.0) L 10/13/20 14:30 Hct 35.7 % (36.0-47.0) L 10/13/20 14:30 MCV 89.4 fL (80.0-100.0) 10/13/20 14:30 MCH 29.2 pg (27.0-34.0) 10/13/20 14:30 MCHC 32.7 g/dL (33.0-35.0) L 10/13/20 14:30 RDW 14.9 % (11.6-16.5) 10/13/20 14:30 Plt Count 225 X10^3/uL (150.0-450.0) 10/13/20 14:30 Plt Count Comment Adequate (ADEQUATE) 10/13/20 14:30 MPV 8.6 fL (7.4-11.0) 10/13/20 14:30 Neut % (Auto) 89.8 % (42.0-75.0) H 10/13/20 14:30 Lymph % (Auto) 2.8 % (21.0-51.0) L 10/13/20 14:30 [place] % (Auto) 7.2 % (0.0-13.0) 10/13/20 14:30 Eos % (Auto) 0.1 % (0.9-2.9) L 10/13/20 14:30 Baso % (Auto) 0.1 % (0.2-1.0) L 10/13/20 14:30 Neut # (Auto) 20.9 x10^3/uL (2.2-4.8) H 10/13/20 14:30 Lymph # (Auto) 0.7 X10^3/uL (1.3-2.9) L 10/13/20 14:30 [place] # (Auto) 1.7 x10^3/uL (0.3-0.8) H 10/13/20 14:30 Eos # (Auto) 0.0 x10^3/uL (0.0-0.2) 10/13/20 14:30 Baso # (Auto) 0.0 X10^3/uL (0.0-0.1) 10/13/20 14:30 Absolute Nucleated RBC 0.0 /100WBC 10/13/20 14:30 Total Counted 100 10/13/20 14:30 Neutrophils % (Manual) 85 % (39-76) H 10/13/20 14:30 Band Neutrophils % 9 % (0-10) 10/13/20 14:30 Lymphocytes % (Manual) 2 % (13-43) L 10/13/20 14:30 Monocytes % (Manual) 4 % (4-9) 10/13/20 14:30 Plt Morphology Comment Normal (NORMAL) 10/13/20 14:30 RBC Morphology Abnormal (NORMAL) A 10/13/20 14:30 Anisocytosis 1+ A 10/13/20 14:30 D-Dimer 0.59 ug/ml (0.0-0.57) H* 10/13/20 14:30 Sample Site Rbra 10/13/20 14:48 ABG pH 7.450 (7.35-7.45) 10/13/20 14:48 ABG pCO2 48.0 mmHg (35.0-45.0) H 10/13/20 14:48 ABG pO2 88.0 mmHg (80.0-100.0) 10/13/20 14:48 ABG HCO3 33.4 mmol/L (22-26) H* 10/13/20 14:48 ABG O2 Saturation 97.0 % (90-100) 10/13/20 14:48 ABG Base Excess 8.2 mmol/L (-2.0-2.0) H 10/13/20 14:48 Reagan Test Na 10/13/20 14:48 A-a Gradient 52.0 mmHg 10/13/20 14:48 FiO2 28.0 10/13/20 14:48 Blood Gas Comments Pt negro well eb 10/13/20 14:48 Sodium 144 mmol/L (136-145) 10/13/20 14:30 Corrected Sodium TNP 10/13/20 14:30 Potassium 4.1 mmol/L (3.5-5.1) 10/13/20 14:30 Chloride 106 mmol/L (98-107) 10/13/20 14:30 Carbon Dioxide 32.0 mmol/L (21-32) 10/13/20 14:30 BUN 13 mg/dL (7-18) 10/13/20 14:30 Creatinine 0.85 mg/dL (0.55-1.02) 10/13/20 14:30 Est GFR (MDRD) Af Amer > 60 (>60) 10/13/20 14:30 Est GFR (MDRD) Non-Af > 60 (>60) 10/13/20 14:30 Glucose 102 mg/dL (65-99) H 10/13/20 14:30 Calcium 8.9 mg/dL (8.5-10.1) 10/13/20 14:30 Corrected Calcium 9.5 mg/dL (8.5-10.1) 10/13/20 14:30 Total Bilirubin 0.30 mg/dL (0.2-1.0) 10/13/20 14:30 AST 14 Units/L (15-37) L 10/13/20 14:30 ALT 19 Units/L (12-78) 10/13/20 14:30 Alkaline Phosphatase 82 Units/L (46-116) 10/13/20 14:30 Total Protein 6.6 g/dL (6.4-8.2) 10/13/20 14:30 Albumin 3.3 g/dL (3.4-5.0) L 10/13/20 14:30 Globulin 3.3 g/dL (2.5-4.5) 10/13/20 14:30 Albumin/Globulin Ratio 1.0 Ratio (1.1-2.1) L 10/13/20 14:30 XRAY X-ray Results: HISTORY SOB, COUGH, FEVER, CONGESTION, CHEST PAIN STUDY CHEST, 1 VIEW COMPARISON 07/23/2020. TECHNIQUE AP view of the chest FINDINGS Cardiac and mediastinal contours are within normal limits. ACDF in the cervical spine noted. Bilateral peripheral distribution of airspace disease worst in the left lower lung. No definite pleural effusion or pneumothorax. Background of emphysema. IMPRESSION Bilateral peripheral airspace disease consistent with pneumonia. Recommend follow-up to document resolution. Background of emphysema. Electronically signed by: Shane Jules (Oct 13, 2020 14:41:30) HISTORY COUGH, CONGESTION/ ELEVATED D-DIMER STUDY CTA CHEST COMPARISON September 04, [address] images of the chest were obtained after the administration of IV contrast utilizing a CTA protocol. 3D MIPS were performed and reviewed for further evaluation. Radiation dose: 455.00 mGy-cm total DLP FINDINGS No significant pericardial effusion. No mediastinal or hilar lymphadenopathy. Atherosclerotic changes to the aorta without aneurysm or dissection. Pulmonary arteries are normal in caliber without filling defects to suggest a pulmonary embolus. Airways are widely patent. No pleural effusion. Consolidation in the anterior segment of the left lower lobe and inferior lingular segment. Patchy areas of airspace disease in the anterior and apical segments of the ri ght upper lobe and anterior segment of the left upper lobe. Mild to moderate centrilobular emphysema. Mild diffuse bronchiectasis No pneumothorax. No concerning lung parenchymal lesion identified. Sliding-type hiatal hernia. Otherwise, the limited evaluation of the upper abdomen is grossly unremarkable. No acute osseous abnormality. Multilevel mild degenerative disc disease. Partially imaged fusion in the lower cervical spine. IMPRESSION 1. No pulmonary embolus identified. 2. Consolidation in the anterior segment of the left lower lobe and inferior lingular segment in addition to patchy areas of airspace disease in the right upper lobe and anterior left upper lobe. Findings could represent multifocal pneumonia. 3. Moderate centrilobular emphysema with diffuse bronchiectasis. 4. Sliding-type hiatal hernia. Electronically signed by: Edmund Khalil (Oct 13, 2020 16:10:24) Opioid Opioid Risk Tool Age (Marquez box if 16-45): No History of Preadolescent Sexual Abuse: No Total: 0 Total Score Risk Category: Low Risk Copyright: Isaac MICHAEL predicting aberrant behaviors Diagnosis Discharge Problem: Pneumonia Qualifiers: Pneumonia type: aspiration pneumonia Aspiration pneumonia type: unspecified Laterality: bilateral Lung location: unspecified part of lung Qualified Code(s): J69.0 - Pneumonitis due to inhalation of food and vomit
[2020-10-13 14:47] LABS: BASOPHILS % (AUTO) 0.1 % (0.2-1.0); EOSINOPHILS % (AUTO) 0.1 % (0.9-2.9); HEMATOCRIT 35.7 % (36.0-47.0); HEMOGLOBIN 11.7 g/dL (12.0-16.0); LYMPHOCYTES # (AUTO) 0.7 X10^3/uL (1.3-2.9); LYMPHOCYTES % (AUTO) 2.8 % (21.0-51.0); MEAN CORPUSCULAR HEMOGLOBIN 29.2 pg (27.0-34.0); MEAN CORPUSCULAR HGB CONC 32.7 g/dL (33.0-35.0); MEAN CORPUSCULAR VOLUME 89.4 fL (80.0-100.0); MEAN PLATELET VOLUME 8.6 fL (7.4-11.0); MONOCYTES # (AUTO) 1.7 x10^3/uL (0.3-0.8); MONOCYTES % (AUTO) 7.2 % (0.0-13.0); NEUTROPHILS # (AUTO) 20.9 x10^3/uL (2.2-4.8); NEUTROPHILS % (AUTO) 89.8 % (42.0-75.0); PLATELET COUNT 225 X10^3/uL (150.0-450.0); RED BLOOD COUNT 3.99 X10^6/uL (3.5-5.4); RED CELL DISTRIBUTION WIDTH 14.9 % (11.6-16.5); WHITE BLOOD COUNT 23.3 X10^3/uL (3.6-10.0)
[2020-10-13 14:51] LABS: ABG BASE EXCESS 8.2 mmol/L (-2.0-2.0)
[2020-10-13 14:52] LABS: ABG HCO3 33.4 mmol/L (22-26)
[2020-10-13 15:01] LABS: ALANINE AMINOTRANSFERASE 19 Units/L (12-78); ALBUMIN 3.3 g/dL (3.4-5.0); ALKALINE PHOSPHATASE 82 Units/L (46-116); ASPARTATE AMINO TRANSFERASE 14 Units/L (15-37); BLOOD UREA NITROGEN 13 mg/dL (7-18); CALCIUM 8.9 mg/dL (8.5-10.1); CHLORIDE 106 mmol/L (98-107); COR CA(FOR HYPOALB) 9.5 mg/dL (8.5-10.1); CREATININE 0.85 mg/dL (0.55-1.02); SODIUM 144 mmol/L (136-145); TOTAL PROTEIN 6.6 g/dL (6.4-8.2); eGFR NON BLACK RACES > 60 (>60)
[2020-10-13 15:20] LABS: ANISOCYTOSIS 1+; BAND NEUTROPHILS % 9 % (0-10); PLATELET MORPHOLOGY COMMENT NORMAL (NORMAL)
[2020-10-13] MEDS ORDERED: NS 100 ML IV 100 ML ONE (15:22)
--- NOTE | 2020-10-13 16:13 | CT ---
HISTORYCOUGH, CONGESTION/ ELEVATED D-DIMERSTUDYCTA CHESTCOMPARISONMay 2020TECHNIQUEAxial CT images of the chest were obtained after the administration of IV contrast utilizing a CTA protocol. 3D MIPS were performed and reviewed for further evaluation.Radiation dose: 455.00 mGy-cm total DLPFINDINGSNo significant pericardial effusion.No mediastinal or hilar lymphadenopathy.Atherosclerotic changes to the aorta without aneurysm or dissection.Pulmonary arteries are normal in caliber without filling defects to suggest a pulmonary embolus.Airways are widely patent.No pleural effusion.Consolidation in the anterior segment of the left lower lobe and inferior lingular segment.Patchy areas of airspace disease in the anterior and apical segments of the right upper lobe and anterior segment of the left upper lobe.Mild to moderate centrilobular emphysema.Mild diffuse bronchiectasisNo pneumothorax.No concerning lung parenchymal lesion identified.Sliding-type hiatal hernia.Otherwise, the limited evaluation of the upper abdomen is grossly unremarkable.No acute osseous abnormality.Multilevel mild degenerative disc disease.Partially imaged fusion in the lower cervical spine.IMPRESSION1. No pulmonary embolus identified.2. Consolidation in the anterior segment of the left lower lobe and inferior lingular segment in addition to patchy areas of airspace disease in the right upper lobe and anterior left upper lobe. Findings could represent multifocal pneumonia.3. Moderate centrilobular emphysema with diffuse bronchiectasis.4. Sliding-type hiatal hernia.Electronically signed by: Edmund Khalil (Oct 13, 2020 16:10:24)
[2020-10-13] MEDS ORDERED: TUSSIONEX PENNKINETIC SUSP PO PRN (16:29)
[2020-10-13] MEDS ORDERED: VANCOMYCIN IV *PREMIX 1 G/200 ML BAG 1 G/200 ML PIGGYBACK IV SCH (16:31)
[2020-10-13] MEDS ORDERED: ROBITUSSIN DM ONE (17:01)
[2020-10-13] MEDS ORDERED: VANCOMYCIN IV *PREMIX 1 G/200 ML BAG 1 G/200 ML PIGGYBACK IV ONE (17:02)
[2020-10-13] MEDS ORDERED: NS 1/2 1000 ML IV 1,000 ML IV ONE (17:02)
[2020-10-13] MEDS: ROBITUSSIN DM PO SCH ×2 (17:13→21:11)
[2020-10-13] MEDS: NS 1/2 1000 ML IV 1,000 ML IV SCH (17:13)
[2020-10-13 17:15] LABS: BILIRUBIN,URINE NEGATIVE (NEGATIVE); BLOOD/HEMOGLOBIN,URINE NEGATIVE (NEGATIVE); GLUCOSE, URINE NEGATIVE (NEGATIVE); KETONES,URINE NEGATIVE (NEGATIVE); LEUKOCYTE ESTERASE ,URINE NEGATIVE (NEGATIVE); NITRITES,URINE NEGATIVE (NEGATIVE); PROTEIN,URINE 2+ (NEGATIVE); UROBILINOGEN,URINE NORMAL (NORMAL)
[2020-10-13 17:27] LABS: APPEARANCE,URINE CLEAR (CLEAR); COLOR,URINE STRAW (YELLOW)
[2020-10-13 17:28] LABS: BACTERIA,URINE NEGATIVE /HPF (NEGATIVE); RBC,URINE NONE SEEN /HPF (0-3); SQUAMOUS EPITHELIAL CELL,UR RARE /HPF (NEGATIVE)
[2020-10-13] MEDS ORDERED: NS 1000 ML 1,000 ML IV ONE (18:23)
[2020-10-13] MEDS: DUONEB 0.5 MG/3 MG (3 mL) NEB SCH (21:00)
[2020-10-13] MEDS ORDERED: TYLENOL 325 MG TAB PO ONE (21:01)
[2020-10-13] MEDS: PEPCID TAB 40 MG PO SCH (21:10)
[2020-10-13] MEDS: KEPPRA TAB 500 MG PO SCH (21:10)
[2020-10-13] MEDS: NEURONTIN CAP 400 MG PO SCH (21:10)
[2020-10-13] MEDS: SINGULAIR TAB 10 MG PO SCH (21:10)
[2020-10-13] MEDS: LIORESAL PO SCH (21:10)
[2020-10-13] MEDS: TYLENOL 325 MG TAB PO PRN (21:10)
[2020-10-13] MEDS: ZOSYN VIAL 3.375 GRAMS 3.375 G in NS 100 ML IV + SPIKE MINIBAG* 100 ML IV SCH (21:12)
[2020-10-14] MEDS: LIORESAL PO SCH ×3 (05:12→22:32)
[2020-10-14] MEDS: ZOSYN VIAL 3.375 GRAMS 3.375 G in NS 100 ML IV + SPIKE MINIBAG* 100 ML IV SCH ×3 (05:12→22:33)
[2020-10-14] MEDS: NEURONTIN CAP 400 MG PO SCH ×3 (05:12→22:32)
[2020-10-14 06:05] LABS: BASOPHILS # (AUTO) 0.2 X10^3/uL (0.0-0.1); EOSINOPHILS % (AUTO) 0.2 % (0.9-2.9); HEMATOCRIT 29.7 % (36.0-47.0); MEAN CORPUSCULAR HEMOGLOBIN 29.2 pg (27.0-34.0); MEAN CORPUSCULAR HGB CONC 32.8 g/dL (33.0-35.0); MEAN PLATELET VOLUME 9.4 fL (7.4-11.0); MONOCYTES # (AUTO) 1.5 x10^3/uL (0.3-0.8); MONOCYTES % (AUTO) 7.7 % (0.0-13.0); NEUTROPHILS # (AUTO) 15.9 x10^3/uL (2.2-4.8); NEUTROPHILS % (AUTO) 81.1 % (42.0-75.0); PLATELET COUNT 192 X10^3/uL (150.0-450.0); RED BLOOD COUNT 3.34 X10^6/uL (3.5-5.4); WHITE BLOOD COUNT 19.6 X10^3/uL (3.6-10.0)
--- NOTE | 2020-10-14 06:17 | RAD ---
HISTORYPNEUMONIASTUDYCHEST, 1 [id number]/22/2021.TECHNIQUEAP view of the chestFINDINGSCardiac and mediastinal contours are within normal limits. Similar appearance of bilateral peripheral distribution of airspace opacities. No discernible pleural effusion or pneumothorax. Background of emphysema.IMPRESSIONSimilar appearance of bilateral multifocal pneumonia. Continued follow-up is recommended to document resolution.Electronically signed by: Shane Jules (Oct 14, 2020 06:15:17)
[2020-10-14 06:20] LABS: ALANINE AMINOTRANSFERASE 15 Units/L (12-78); ALBUMIN 2.6 g/dL (3.4-5.0); ALKALINE PHOSPHATASE 71 Units/L (46-116); ASPARTATE AMINO TRANSFERASE 16 Units/L (15-37); BLOOD UREA NITROGEN 13 mg/dL (7-18); CALCIUM 8.6 mg/dL (8.5-10.1); CARBON DIOXIDE 30.5 mmol/L (21-32); CHLORIDE 111 mmol/L (98-107); COR CA(FOR HYPOALB) 9.7 mg/dL (8.5-10.1); CREATININE 0.64 mg/dL (0.55-1.02); SODIUM 146 mmol/L (136-145); TOTAL PROTEIN 5.7 g/dL (6.4-8.2); eGFR NON BLACK RACES > 60 (>60)
[2020-10-14 06:23] LABS: HEMOGLOBIN 9.7 g/dL (12.0-16.0)
[2020-10-14] MEDS: ROBITUSSIN DM PO SCH ×4 (08:30→20:33)
[2020-10-14] MEDS: REQUIP PO SCH (08:30)
[2020-10-14] MEDS: PROzac PO SCH (08:31)
[2020-10-14] MEDS: LIPITOR TAB 80 MG PO SCH (08:31)
[2020-10-14] MEDS: KEPPRA TAB 500 MG PO SCH ×2 (08:31→20:32)
[2020-10-14] MEDS: PEPCID TAB 40 MG PO SCH ×2 (08:31→20:33)
[2020-10-14] MEDS: PriLOSEC PO SCH (08:32)
[2020-10-14] MEDS: NS 1/2 1000 ML IV 1,000 ML IV SCH ×2 (08:38→20:32)
[2020-10-14] MEDS: CLARITIN PO SCH (08:38)
[2020-10-14] MEDS ORDERED: FONDAPARINUX 7.5 MG/0.6 ML subcut SCH (09:00)
[2020-10-14] MEDS: DUONEB 0.5 MG/3 MG (3 mL) NEB SCH ×4 (09:18→20:34)
[2020-10-14] MEDS: VANCOMYCIN IV *PREMIX 1 G/200 ML BAG 1 G/200 ML PIGGYBACK IV SCH ×2 (09:56→20:33)
[2020-10-14] MEDS: ELIQUIS PO SCH ×2 (10:15→20:32)
[2020-10-14] MEDS ORDERED: VANCOMYCIN IV *PREMIX 1 G/200 ML BAG 1 G/200 ML PIGGYBACK IV SCH (11:00)
--- NOTE | 2020-10-14 12:05 | DR.H&P ---
H&P History & Physical for Day of: H&P Date: 10/14/20 Chief Complaint Chief Complaint: dyspnea, cough, weakness Allergies Allergies Allergy/AdvReac Type Severity Reaction Status Date / Time Sulfa (Sulfonamide Allergy Verified 03/17/20 08:00 Antibiotics) [SULFA] History of Present Illness History of Present Illness: Ms. Umanzor is a 69y/o female with a PMH of arthritis, CVA in 2018, Hx of PE, HTN, HLD, GERD, hypothyroidism, anxiety and depression presented with worsening dyspnea. Patient has been on home O2 2L since she had covid pneumonia few months ago. Patient required a prolonged stay in [facility] and then rehab. She stated feeling sick on Monday and felt weak. The next day she had fever, Tmax 101, chills and cough. She also started having pleuritic chest pain and shortness of breath. She has a hx of aspiration pneumonia. Denies sick contact at home. Denies GI Sx. ED work up Labs: WBC 19.6 (down from 23.3), Hgb 9.7 Plt 192 BUN/Cr: 13/0.64 Glucose 85 D- dimer: 0.59 AB.45/48/88/33.4 UA: negative COVID-19 negative CTA chest: no PE, multifocal pneumonia, bilateral upper lobe involvement, emphysema and bronchiectasis. Patient was started on IV vancomyin and Zosyn. She was also given normal saline bolus. Patient is currently on 2L O2. Plan: Continue IV Vancomycin and Zosyn for broader coverage for aspiration, p seudomonas and MRSA. Order sputum culture. Continue duonebs. Resume home medications. Wean O2 as tolerated to keep sats above 92%. PT/OT as tolerated. IS at bedside. Monitor AM labs and imaging. Past Medical History Past Medical History: Anxiety, Arthritis, CVA, Depression, Hypertension, Hypothyroidism and Seizures Additional Medical History: PE Past Surgical History Surgical History: Appendectomy, Hysterectomy and Ortho Surgery Family History Family Medical History: Cancer Social History Does patient currently use any type of tobacco product: No Have you used tobacco products in the last 12 months: No Type of Tobacco Use: None Does any household member use tobacco: No Alcohol Use: None Drug Use: None Prescription drug monitoring program results: PDMP reviewed and no concerns identified Medications Home Medications: Sulfa (Sulfonamide Antibiotics) [SULFA] Allergy (Verified 03/17/20 08:00) CONTINUE taking the following medications apixaban [Eliquis] 5 mg PO BID 10/13/20 [History] Labs Result Diagrams: 10/14/20 05:20 10/14/20 05:20 Labs: Laboratory WBC 19.6 X10^3/uL (3.6-10.0) H 10/14/20 05:20 RBC 3.34 X10^6/uL (3.5-5.4) L 10/14/20 05:20 Hgb 9.7 g/dL (12.0-16.0) L D 10/14/20 05:20 Hct 29.7 % (36.0-47.0) L 10/14/20 05:20 MCV 89.0 fL (80.0-100.0) 10/14/20 05:20 MCH 29.2 pg (27.0-34.0) 10/14/20 05:20 MCHC 32.8 g/dL (33.0-35.0) L 10/14/20 05:20 RDW 15.0 % (11.6-16.5) 10/14/20 05:20 Plt Count 192 X10^3/uL (150.0-450.0) 10/14/20 05:20 Plt Count Comment Adequate (ADEQUATE) 10/13/20 14:30 MPV 9.4 fL (7.4-11.0) 10/14/20 05:20 Neut % (Auto) 81.1 % (42.0-75.0) H 10/14/20 05:20 Lymph % (Auto) 10.0 % (21.0-51.0) L 10/14/20 05:20 [place] % (Auto) 7.7 % (0.0-13.0) 10/14/20 05:20 Eos % (Auto) 0.2 % (0.9-2.9) L 10/14/20 05:20 Baso % (Auto) 1.0 % (0.2-1.0) 10/14/20 05:20 Neut # (Auto) 15.9 x10^3/uL (2.2-4.8) H 10/14/20 05:20 Lymph # (Auto) 2.0 X10^3/uL (1.3-2.9) 10/14/20 05:20 [place] # (Auto) 1.5 x10^3/uL (0.3-0.8) H 10/14/20 05:20 Eos # (Auto) 0.0 x10^3/uL (0.0-0.2) 10/14/20 05:20 Baso # (Auto) 0.2 X10^3/uL (0.0-0.1) H 10/14/20 05:20 Absolute Nucleated RBC 0.0 /100WBC 10/14/20 05:20 Total Counted 100 10/13/20 14:30 Neutrophils % (Manual) 85 % (39-76) H 10/13/20 14:30 Band Neutrophils % 9 % (0-10) 10/13/20 14:30 Lymphocytes % (Manual) 2 % (13-43) L 10/13/20 14:30 Monocytes % (Manual) 4 % (4-9) 10/13/20 14:30 Plt Morphology Comment Normal (NORMAL) 10/13/20 14:30 RBC Morphology Abnormal (NORMAL) A 10/13/20 14:30 Anisocytosis 1+ A 10/13/20 14:30 D-Dimer 0.59 ug/ml (0.0-0.57) H* 10/13/20 14:30 Sample Site [facility] 10/13/20 14:48 ABG pH 7.450 (7.35-7.45) 10/13/20 14:48 ABG pCO2 48.0 mmHg (35.0-45.0) H 10/13/20 14:48 ABG pO2 88.0 mmHg (80.0-100.0) 10/13/20 14:48 ABG HCO3 33.4 mmol/L (22-26) H* 10/13/20 14:48 ABG O2 Saturation 97.0 % (90-100) 10/13/20 14:48 ABG Base Excess 8.2 mmol/L (-2.0-2.0) H 10/13/20 14:48 Reagan Test Na 10/13/20 14:48 A-a Gradient 52.0 mmHg 10/13/20 14:48 FiO2 28.0 10/13/20 14:48 Blood Gas Comments Pt negro well eb 10/13/20 14:48 Sodium 146 mmol/L (136-145) H 10/14/20 05:20 Corrected Sodium TNP 10/14/20 05:20 Potassium 3.8 mmol/L (3.5-5.1) 10/14/20 05:20 Chloride 111 mmol/L (98-107) H 10/14/20 05:20 Carbon Dioxide 30.5 mmol/L (21-32) 10/14/20 05:20 BUN 13 mg/dL (7-18) 10/14/20 05:20 Creatinine 0.64 mg/dL (0.55-1.02) 10/14/20 05:20 Est GFR (MDRD) Af Amer > 60 (>60) 10/14/20 05:20 Est GFR (MDRD) Non-Af > 60 (>60) 10/14/20 05:20 Glucose 85 mg/dL (65-99) 10/14/20 05:20 Calcium 8.6 mg/dL (8.5-10.1) 10/14/20 05:20 Corrected Calcium 9.7 mg/dL (8.5-10.1) 10/14/20 05:20 Total Bilirubin 0.40 mg/dL (0.2-1.0) 10/14/20 05:20 AST 16 Units/L (15-37) 10/14/20 05:20 ALT 15 Units/L (12-78) 10/14/20 05:20 Alkaline Phosphatase 71 Units/L (46-116) 10/14/20 05:20 Total Protein 5.7 g/dL (6.4-8.2) L 10/14/20 05:20 Albumin 2.6 g/dL (3.4-5.0) L 10/14/20 05:20 Globulin 3.1 g/dL (2.5-4.5) 10/14/20 05:20 Albumin/Globulin Ratio 0.8 Ratio (1.1-2.1) L 10/14/20 05:20 Specimen Type Clean catch urine 10/13/20 17:00 Urine Color Straw (YELLOW) 10/13/20 17:00 Urine Appearance Clear (CLEAR) 10/13/20 17:00 Urine pH 7.0 (5.0 - 8.0) 10/13/20 17:00 Ur Specific [place] 1.010 (1.000-1.030) 10/13/20 17:00 Urine Protein 2+ (NEGATIVE) 10/13/20 17:00 Urine Glucose (UA) Negative (NEGATIVE) 10/13/20 17:00 Urine Ketones Negative (NEGATIVE) 10/13/20 17:00 Urine Occult Blood Negative (NEGATIVE) 10/13/20 17:00 Urine Nitrite Negative (NEGATIVE) 10/13/20 17:00 Urine Bilirubin Negative (NEGATIVE) 10/13/20 17:00 Urine Urobilinogen Normal (NORMAL) 10/13/20 17:00 Ur Leukocyte Esterase Negative (NEGATIVE) 10/13/20 17:00 Urine RBC None seen /HPF (0-3) 10/13/20 17:00 Urine WBC None seen /HPF (0-5) 10/13/20 17:00 Ur Squamous Epith Cells Rare /HPF (NEGATIVE) 10/13/20 17:00 Urine Bacteria Negative /HPF (NEGATIVE) 10/13/20 17:00 Ur Culture Indicated? No/not indicated 10/13/20 17:00 SARS CoV-2 RNA Rapid GIANFRANCO Negative (NEGATIVE) 10/13/20 16:22 Review of Systems Constitutional: Fever, Chills, Weakness and Malaise Eyes: No Symptoms Reported ENT: No Symptoms Reported Respiratory: Cough, Dry, Shortness of Breath and SOB with Excertion Cardiovascular: No Symptoms Reported Gastrointestinal: No Symptoms Reported Genitourinary: No Symptoms Reported Musculoskeletal: Back Pain Skin: No Symptoms Reported Neurological: No Symptoms Reported Physical Exam Vital Signs: Temperature 98.2 F Pulse Rate [Left Brachial] 79 Pulse Rate 91 Respiratory Rate 16 Blood Pressure [Right Arm] 102/55 Blood Pressure 91/50 O2 Sat by Pulse Oximetry 96 Oriented: Normal Eyes: Normal Ear: Normal Nose: Normal Throat: Normal Respiratory: Diminished Throughout and Rhonchi Throughout Cardiovascular: Normal Auscultation: Bowel Sounds: Normal Palpation: Normal Tenderness: Normal Skin: Normal Musculoskeletal: Normal Psychiatric: Normal Mood Description: Calm and Appropriate Affect: Normal Speech Pattern: Clear and Appropriate Assessment/Plan (1) Pneumonia: Qualifiers: Aspiration pneumonia type: unspecified Laterality: bilateral Lung location: unspecified part of lung Pneumonia type: aspiration pneumonia Qualified Code(s): J69.0 - Pneumonitis due to inhalation of food and vomit Status: Acute (2) Generalized weakness: Status: Acute (3) Acute respiratory distress: Status: Acute (4) Pulmonary embolism: Qualifiers: Acute cor pulmonale presence: unspecified Chronicity: chronic Pulmonary embolism type: unspecified Qualified Code(s): I27.82 - Chronic pulmonary embolism Status: Acute (5) Oxygen dependent: Status: Acute (6) Anemia: Qualifiers: Anemia type: unspecified type Qualified Code(s): D64.9 - Anemia, unspecified Status: Acute (7) Atrial fibrillation: Qualifiers: Atrial fibrillation type: unspecified Qualified Code(s): I48.91 - Unspecified atrial fibrillation Status: Chronic (8) CVA (cerebral vascular accident): Qualifiers: CVA mechanism: unspecified Qualified Code(s): I63.9 - Cerebral infarction, unspecified Status: Chronic Review H&P Reviewed: Yes Patient was examined?: Yes
[2020-10-14] MEDS: MAALOX or MYLANTA PO PRN (14:36)
[2020-10-14] MEDS: SYNTHROID 88 mcg TAB PO SCH (16:52)
[2020-10-14] MEDS: SINGULAIR TAB 10 MG PO SCH (20:33)
[2020-10-15] MEDS ORDERED: NS 1/2 1000 ML IV 1,000 ML IV ONE (04:17)
[2020-10-15] MEDS: LIORESAL PO SCH ×3 (05:04→21:22)
[2020-10-15 05:05] LABS: BASOPHILS # (AUTO) 0.1 X10^3/uL (0.0-0.1); BASOPHILS % (AUTO) 0.8 % (0.2-1.0); EOSINOPHILS # (AUTO) 0.1 x10^3/uL (0.0-0.2); EOSINOPHILS % (AUTO) 0.8 % (0.9-2.9); HEMOGLOBIN 9.6 g/dL (12.0-16.0); LYMPHOCYTES # (AUTO) 1.2 X10^3/uL (1.3-2.9); LYMPHOCYTES % (AUTO) 8.9 % (21.0-51.0); MEAN CORPUSCULAR HEMOGLOBIN 29.5 pg (27.0-34.0); MEAN CORPUSCULAR HGB CONC 33.1 g/dL (33.0-35.0); MEAN CORPUSCULAR VOLUME 89.2 fL (80.0-100.0); MEAN PLATELET VOLUME 9.5 fL (7.4-11.0); MONOCYTES # (AUTO) 1.1 x10^3/uL (0.3-0.8); MONOCYTES % (AUTO) 7.7 % (0.0-13.0); NEUTROPHILS # (AUTO) 11.4 x10^3/uL (2.2-4.8); NEUTROPHILS % (AUTO) 81.8 % (42.0-75.0); PLATELET COUNT 180 X10^3/uL (150.0-450.0); RED BLOOD COUNT 3.25 X10^6/uL (3.5-5.4); RED CELL DISTRIBUTION WIDTH 15.1 % (11.6-16.5)
[2020-10-15] MEDS: NS 1/2 1000 ML IV 1,000 ML IV SCH (05:05)
[2020-10-15] MEDS: NEURONTIN CAP 400 MG PO SCH ×3 (05:06→21:22)
[2020-10-15] MEDS: ZOSYN VIAL 3.375 GRAMS 3.375 G in NS 100 ML IV + SPIKE MINIBAG* 100 ML IV SCH ×3 (05:06→21:22)
[2020-10-15 05:09] LABS: BLOOD UREA NITROGEN 8 mg/dL (7-18); CALCIUM 8.4 mg/dL (8.5-10.1); CARBON DIOXIDE 26.1 mmol/L (21-32); CHLORIDE 110 mmol/L (98-107); SODIUM 146 mmol/L (136-145); eGFR NON BLACK RACES > 60 (>60)
[2020-10-15] MEDS: DUONEB 0.5 MG/3 MG (3 mL) NEB SCH ×6 (07:56→20:51)
[2020-10-15] MEDS: KEPPRA TAB 500 MG PO SCH ×2 (10:27→21:22)
[2020-10-15] MEDS: ELIQUIS PO SCH ×2 (10:27→21:22)
[2020-10-15] MEDS: CLARITIN PO SCH (10:27)
[2020-10-15] MEDS: PROzac PO SCH (10:28)
[2020-10-15] MEDS: ROBITUSSIN DM PO SCH ×4 (10:28→21:22)
[2020-10-15] MEDS: LIPITOR TAB 80 MG PO SCH (10:28)
[2020-10-15] MEDS: PriLOSEC PO SCH (10:28)
[2020-10-15] MEDS: VANCOMYCIN IV *PREMIX 1 G/200 ML BAG 1 G/200 ML PIGGYBACK IV SCH ×2 (10:28→21:31)
[2020-10-15] MEDS: PEPCID TAB 40 MG PO SCH ×2 (10:28→21:22)
[2020-10-15] MEDS: REQUIP PO SCH (10:28)
--- NOTE | 2020-10-15 11:50 | PCM.PROG ---
Progress Note Progress Note for Day of Date of Exam: 10/15/20 Subjective Subjective: Patient seen at bedside, no acute events overnight. She is currently on 2L NC. She states she feels slightly better today. She continues to have dry cough. Denies fever or chills. She did not work with PT yesterday due to feeling weak. She has been ambulating to the bathroom. Labs: WBC 14 Hgb 9.6 Plt 180 CXR: similar multifocal pneumonia Plan: Continue Vancomycin and Zosyn. Continue nebs and IS. Wean O2 as tolerated. PT/OT as tolerated. Continue home medications. Will DC IVF, patient reports eating ok. Add pulmicort nebs. Monitor AM labs and imaging. Past Medical Family Social History Past Med/Fam/Surg Hx: No changes since H&P Allergies: Allergies Sulfa (Sulfonamide Antibiotics) [SULFA] Allergy (Verified 03/17/20 08:00) Review of Systems ROS: No change since H&P Vital Signs and I&O's Vital Signs: Temperature 98.1 F Pulse Rate [Left Brachial] 99 Pulse Rate 71 Respiratory Rate 20 Blood Pressure [Right Arm] 142/74 Blood Pressure 91/50 O2 Sat by Pulse Oximetry 93 Intake and Output: Intake & Output 10/12/20 10/13/20 10/14/20 10/15/20 23:59 23:59 23:59 23:59 Intake Total 1736 / 1736 3014 / 3014 341 / 341 Balance 1736 / 1736 3014 / 3014 341 / 341 Physical Exam Oriented: Normal Eyes: Normal Ear: Normal Nose: Normal Throat: Normal Respiratory: Generalized, Diminished and Rhonchi Cardiovascular: Normal Auscultation: Bowel Sounds: Normal Tenderness: Normal Skin: Normal Musculoskeletal: Normal Psychiatric: Normal Mood Description: Calm and Appropriate Affect: Normal Speech Pattern: Clear and Appropriate Laboratory and Diagnostics Result Diagrams: 10/15/20 04:20 10/15/20 04:20 Labs: Laboratory WBC 14.0 X10^3/uL (3.6-10.0) H 10/15/20 04:20 RBC 3.25 X10^6/uL (3.5-5.4) L 10/15/20 04:20 Hgb 9.6 g/dL (12.0-16.0) L 10/15/20 04:20 Hct 29.0 % (36.0-47.0) L 10/15/20 04:20 MCV 89.2 fL (80.0-100.0) 10/15/20 04:20 MCH 29.5 pg (27.0-34.0) 10/15/20 04:20 MCHC 33.1 g/dL (33.0-35.0) 10/15/20 04:20 RDW 15.1 % (11.6-16.5) 10/15/20 04:20 Plt Count 180 X10^3/uL (150.0-450.0) 10/15/20 04:20 Plt Count Comment Adequate (ADEQUATE) 10/13/20 14:30 MPV 9.5 fL (7.4-11.0) 10/15/20 04:20 Neut % (Auto) 81.8 % (42.0-75.0) H 10/15/20 04:20 Lymph % (Auto) 8.9 % (21.0-51.0) L 10/15/20 04:20 [place] % (Auto) 7.7 % (0.0-13.0) 10/15/20 04:20 Eos % (Auto) 0.8 % (0.9-2.9) L 10/15/20 04:20 Baso % (Auto) 0.8 % (0.2-1.0) 10/15/20 04:20 Neut # (Auto) 11.4 x10^3/uL (2.2-4.8) H 10/15/20 04:20 Lymph # (Auto) 1.2 X10^3/uL (1.3-2.9) L 10/15/20 04:20 Jack # (Auto) 1.1 x10^3/uL (0.3-0.8) H 10/15/20 04:20 Eos # (Auto) 0.1 x10^3/uL (0.0-0.2) 10/15/20 04:20 Baso # (Auto) 0.1 X10^3/uL (0.0-0.1) 10/15/20 04:20 Absolute Nucleated RBC 0.0 /100WBC 10/15/20 04:20 Total Counted 100 10/13/20 14:30 Neutrophils % (Manual) 85 % (39-76) H 10/13/20 14:30 Band Neutrophils % 9 % (0-10) 10/13/20 14:30 Lymphocytes % (Manual) 2 % (13-43) L 10/13/20 14:30 Monocytes % (Manual) 4 % (4-9) 10/13/20 14:30 Plt Morphology Comment Normal (NORMAL) 10/13/20 14:30 RBC Morphology Abnormal (NORMAL) A 10/13/20 14:30 Anisocytosis 1+ A 10/13/20 14:30 D-Dimer 0.59 ug/ml (0.0-0.57) H* 10/13/20 14:30 Sample Site [facility] 10/13/20 14:48 ABG pH 7.450 (7.35-7.45) 10/13/20 14:48 ABG pCO2 48.0 mmHg (35.0-45.0) H 10/13/20 14:48 ABG pO2 88.0 mmHg (80.0-100.0) 10/13/20 14:48 ABG HCO3 33.4 mmol/L (22-26) H* 10/13/20 14:48 ABG O2 Saturation 97.0 % (90-100) 10/13/20 14:48 ABG Base Excess 8.2 mmol/L (-2.0-2.0) H 10/13/20 14:48 Reagan Test Na 10/13/20 14:48 A-a Gradient 52.0 mmHg 10/13/20 14:48 FiO2 28.0 10/13/20 14:48 Blood Gas Comments Pt negro well eb 10/13/20 14:48 Sodium 146 mmol/L (136-145) H 10/15/20 04:20 Corrected Sodium TNP 10/15/20 04:20 Potassium 3.8 mmol/L (3.5-5.1) 10/15/20 04:20 Chloride 110 mmol/L (98-107) H 10/15/20 04:20 Carbon Dioxide 26.1 mmol/L (21-32) 10/15/20 04:20 BUN 8 mg/dL (7-18) 10/15/20 04:20 Creatinine 0.70 mg/dL (0.55-1.02) 10/15/20 04:20 Est GFR (MDRD) Af Amer > 60 (>60) 10/15/20 04:20 Est GFR (MDRD) Non-Af > 60 (>60) 10/15/20 04:20 Glucose 102 mg/dL (65-99) H 10/15/20 04:20 Calcium 8.4 mg/dL (8.5-10.1) L 10/15/20 04:20 Corrected Calcium 9.7 mg/dL (8.5-10.1) 10/14/20 05:20 Total Bilirubin 0.40 mg/dL (0.2-1.0) 10/14/20 05:20 AST 16 Units/L (15-37) 10/14/20 05:20 ALT 15 Units/L (12-78) 10/14/20 05:20 Alkaline Phosphatase 71 Units/L (46-116) 10/14/20 05:20 Total Protein 5.7 g/dL (6.4-8.2) L 10/14/20 05:20 Albumin 2.6 g/dL (3.4-5.0) L 10/14/20 05:20 Globulin 3.1 g/dL (2.5-4.5) 10/14/20 05:20 Albumin/Globulin Ratio 0.8 Ratio (1.1-2.1) L 10/14/20 05:20 Specimen Type Clean catch urine 10/13/20 17:00 Urine Color Straw (YELLOW) 10/13/20 17:00 Urine Appearance Clear (CLEAR) 10/13/20 17:00 Urine pH 7.0 (5.0 - 8.0) 10/13/20 17:00 Ur Specific [place] 1.010 (1.000-1.030) 10/13/20 17:00 Urine Protein 2+ (NEGATIVE) 10/13/20 17:00 Urine Glucose (UA) Negative (NEGATIVE) 10/13/20 17:00 Urine Ketones Negative (NEGATIVE) 10/13/20 17:00 Urine Occult Blood Negative (NEGATIVE) 10/13/20 17:00 Urine Nitrite Negative (NEGATIVE) 10/13/20 17:00 Urine Bilirubin Negative (NEGATIVE) 10/13/20 17:00 Urine Urobilinogen Normal (NORMAL) 10/13/20 17:00 Ur Leukocyte Esterase Negative (NEGATIVE) 10/13/20 17:00 Urine RBC None seen /HPF (0-3) 10/13/20 17:00 Urine WBC None seen /HPF (0-5) 10/13/20 17:00 Ur Squamous Epith Cells Rare /HPF (NEGATIVE) 10/13/20 17:00 Urine Bacteria Negative /HPF (NEGATIVE) 10/13/20 17:00 Ur Culture Indicated? No/not indicated 10/13/20 17:00 SARS CoV-2 RNA Rapid GIANFRANCO Negative (NEGATIVE) 10/13/20 16:22 Plan (1) Pneumonia: Status: Acute Qualifiers: Aspiration pneumonia type: unspecified Laterality: bilateral Lung location: unspecified part of lung Pneumonia type: aspiration pneumonia Qualified Code(s): J69.0 - Pneumonitis due to inhalation of food and vomit (2) Generalized weakness: Status: Inactive (3) Acute respiratory distress: Status: Inactive (4) Pulmonary embolism: Status: Inactive Qualifiers: Acute cor pulmonale presence: unspecified Chronicity: chronic Pulmonary embolism type: unspecified Qualified Code(s): I27.82 - Chronic pulmonary embolism (5) Oxygen dependent: Status: Inactive (6) Anemia: Status: Inactive Qualifiers: Anemia type: unspecified type Qualified Code(s): D64.9 - Anemia, unspecified (7) Atrial fibrillation: Status: Chronic Qualifiers: Atrial fibrillation type: unspecified Qualified Code(s): I48.91 - Unspecified atrial fibrillation (8) CVA (cerebral vascular accident): Status: Chronic Qualifiers: CVA mechanism: unspecified Qualified Code(s): I63.9 - Cerebral infarction, unspecified
[2020-10-15] MEDS: PULMICORT NEB TX 0.5 MG NEB SCH (14:30)
[2020-10-15] MEDS: SYNTHROID 88 mcg TAB PO SCH (17:15)
[2020-10-15] MEDS ORDERED: PHARMACY COMMENT IV NR (20:30)
[2020-10-15 21:19] LABS: CREATININE 0.84 mg/dL (0.55-1.02); VANCOMYCIN,TROUGH 10.7 ug/mL (15-20)
[2020-10-15] MEDS: SINGULAIR TAB 10 MG PO SCH (21:22)
[2020-10-16] MEDS: TYLENOL 325 MG TAB PO PRN (01:20)
[2020-10-16] MEDS: NEURONTIN CAP 400 MG PO SCH ×3 (05:15→22:17)
[2020-10-16] MEDS: ZOSYN VIAL 3.375 GRAMS 3.375 G in NS 100 ML IV + SPIKE MINIBAG* 100 ML IV SCH ×3 (05:15→21:03)
[2020-10-16] MEDS: LIORESAL PO SCH ×3 (05:15→21:04)
[2020-10-16 06:31] LABS: BASOPHILS # (AUTO) 0.1 X10^3/uL (0.0-0.1); BASOPHILS % (AUTO) 0.9 % (0.2-1.0); EOSINOPHILS # (AUTO) 0.2 x10^3/uL (0.0-0.2); HEMATOCRIT 29.9 % (36.0-47.0); HEMOGLOBIN 9.7 g/dL (12.0-16.0); LYMPHOCYTES # (AUTO) 1.4 X10^3/uL (1.3-2.9); LYMPHOCYTES % (AUTO) 12.6 % (21.0-51.0); MEAN CORPUSCULAR HEMOGLOBIN 29.4 pg (27.0-34.0); MEAN CORPUSCULAR HGB CONC 32.5 g/dL (33.0-35.0); MEAN CORPUSCULAR VOLUME 90.3 fL (80.0-100.0); MEAN PLATELET VOLUME 9.3 fL (7.4-11.0); MONOCYTES # (AUTO) 0.9 x10^3/uL (0.3-0.8); NEUTROPHILS # (AUTO) 8.5 x10^3/uL (2.2-4.8); NEUTROPHILS % (AUTO) 76.5 % (42.0-75.0); PLATELET COUNT 205 X10^3/uL (150.0-450.0); RED BLOOD COUNT 3.32 X10^6/uL (3.5-5.4); WHITE BLOOD COUNT 11.2 X10^3/uL (3.6-10.0)
[2020-10-16 06:33] LABS: BLOOD UREA NITROGEN 4 mg/dL (7-18); CALCIUM 8.5 mg/dL (8.5-10.1); CARBON DIOXIDE 30.5 mmol/L (21-32); CHLORIDE 112 mmol/L (98-107); CREATININE 0.76 mg/dL (0.55-1.02); SODIUM 149 mmol/L (136-145); eGFR NON BLACK RACES > 60 (>60)
[2020-10-16] MEDS: PULMICORT NEB TX 0.5 MG NEB SCH ×3 (08:22→21:00)
[2020-10-16] MEDS: DUONEB 0.5 MG/3 MG (3 mL) NEB SCH ×4 (08:22→21:00)
[2020-10-16] MEDS: ELIQUIS PO SCH ×2 (10:37→21:04)
[2020-10-16] MEDS: KEPPRA TAB 500 MG PO SCH ×2 (10:37→21:03)
[2020-10-16] MEDS: CLARITIN PO SCH (10:37)
[2020-10-16] MEDS: PEPCID TAB 40 MG PO SCH ×2 (10:38→21:03)
[2020-10-16] MEDS: PriLOSEC PO SCH (10:38)
[2020-10-16] MEDS: REQUIP PO SCH (10:38)
[2020-10-16] MEDS: PROzac PO SCH (10:38)
[2020-10-16] MEDS: ROBITUSSIN DM PO SCH ×4 (10:38→21:04)
[2020-10-16] MEDS: VANCOMYCIN IV *PREMIX 1.25 G/250 ML BAG 1.25 G/250 ML PIGGYBACK IV SCH ×2 (10:38→21:03)
[2020-10-16] MEDS: LIPITOR TAB 80 MG PO SCH (10:38)
[2020-10-16] MEDS ORDERED: NS 1/2 1000 ML IV 1,000 ML IV ONE (11:44)
[2020-10-16] MEDS: NS 1/2 1000 ML IV 1,000 ML IV SCH (11:51)
--- NOTE | 2020-10-16 11:59 | PCM.PROG ---
Progress Note Progress Note for Day of Date of Exam: 10/16/20 Subjective Subjective: Patient seen at bedside, no acute events overnight. Patient sleeping this morning. Denies any complaints. She is on 2L NC. She has been afebrile. Labs: WBC 11.2 Hgb 9.7 Plt 205 Na: 149 Cl 112 BUN/Cr: 4/0.7 CXR: similar multifocal pneumonia Blood Cx: negative Plan: Continue Vancomycin and Zosyn. Continue nebs, Pulmicort and IS. Will start 1/2 NS at 75cc/hr for hypernatremia. Wean O2 as tolerated. PT/OT as tolerated. Continue home medications. Monitor AM labs and imaging. Past Medical Family Social History Past Med/Fam/Surg Hx: No changes since H&P Allergies: Allergies Sulfa (Sulfonamide Antibiotics) [SULFA] Allergy (Verified 03/17/20 08:00) Review of Systems ROS: No change since H&P Vital Signs and I&O's Vital Signs: Temperature 98.4 F Pulse Rate [Left Brachial] 78 Pulse Rate 79 Respiratory Rate 20 Blood Pressure [Right Arm] 134/70 Blood Pressure 91/50 O2 Sat by Pulse Oximetry 99 Intake and Output: Intake & Output 10/13/20 10/14/20 10/15/20 10/16/20 23:59 23:59 23:59 23:59 Intake Total 1736 / 1736 3014 / 3014 1946 / 1946 825 / 825 Balance 1736 / 1736 3014 / 3014 1946 825 / 825 Physical Exam Oriented: Normal Eyes: Normal Ear: Normal Nose: Normal Throat: Normal Respiratory: Generalized, Diminished and Rhonchi Cardiovascular: Normal Auscultation: Bowel Sounds: Normal Tenderness: Normal Skin: Normal Musculoskeletal: Normal Psychiatric: Normal Mood Description: Calm and Appropriate Affect: Normal Speech Pattern: Clear and Appropriate Laboratory and Diagnostics Result Diagrams: 10/16/20 05:11 10/16/20 05:11 Labs: 10/13/20 14:38 Blood Blood Culture - Preliminary 10/13/20 14:30 Blood Blood Culture - Preliminary Laboratory WBC 11.2 X10^3/uL (3.6-10.0) H 10/16/20 05:11 RBC 3.32 X10^6/uL (3.5-5.4) L 10/16/20 05:11 Hgb 9.7 g/dL (12.0-16.0) L 10/16/20 05:11 Hct 29.9 % (36.0-47.0) L 10/16/20 05:11 MCV 90.3 fL (80.0-100.0) 10/16/20 05:11 MCH 29.4 pg (27.0-34.0) 10/16/20 05:11 MCHC 32.5 g/dL (33.0-35.0) L 10/16/20 05:11 RDW 15.0 % (11.6-16.5) 10/16/20 05:11 Plt Count 205 X10^3/uL (150.0-450.0) 10/16/20 05:11 Plt Count Comment Adequate (ADEQUATE) 10/13/20 14:30 MPV 9.3 fL (7.4-11.0) 10/16/20 05:11 Neut % (Auto) 76.5 % (42.0-75.0) H 10/16/20 05:11 Lymph % (Auto) 12.6 % (21.0-51.0) L 10/16/20 05:11 [place] % (Auto) 8.0 % (0.0-13.0) 10/16/20 05:11 Eos % (Auto) 2.0 % (0.9-2.9) 10/16/20 05:11 Baso % (Auto) 0.9 % (0.2-1.0) 10/16/20 05:11 Neut # (Auto) 8.5 x10^3/uL (2.2-4.8) H 10/16/20 05:11 Lymph # (Auto) 1.4 X10^3/uL (1.3-2.9) 10/16/20 05:11 [place] # (Auto) 0.9 x10^3/uL (0.3-0.8) H 10/16/20 05:11 Eos # (Auto) 0.2 x10^3/uL (0.0-0.2) 10/16/20 05:11 Baso # (Auto) 0.1 X10^3/uL (0.0-0.1) 10/16/20 05:11 Absolute Nucleated RBC 0.0 /100WBC 10/16/20 05:11 Total Counted 100 10/13/20 14:30 Neutrophils % (Manual) 85 % (39-76) H 10/13/20 14:30 Band Neutrophils % 9 % (0-10) 10/13/20 14:30 Lymphocytes % (Manual) 2 % (13-43) L 10/13/20 14:30 Monocytes % (Manual) 4 % (4-9) 10/13/20 14:30 Plt Morphology Comment Normal (NORMAL) 10/13/20 14:30 RBC Morphology Abnormal (NORMAL) A 10/13/20 14:30 Anisocytosis 1+ A 10/13/20 14:30 D-Dimer 0.59 ug/ml (0.0-0.57) H* 10/13/20 14:[address] [facility] 10/13/20 14:48 ABG pH 7.450 (7.35-7.45) 10/13/20 14:48 ABG pCO2 48.0 mmHg (35.0-45.0) H 10/13/20 14:48 ABG pO2 88.0 mmHg (80.0-100.0) 10/13/20 14:48 ABG HCO3 33.4 mmol/L (22-26) H* 10/13/20 14:48 ABG O2 Saturation 97.0 % (90-100) 10/13/20 14:48 ABG Base Excess 8.2 mmol/L (-2.0-2.0) H 10/13/20 14:48 Reagan Test Na 10/13/20 14:48 A-a Gradient 52.0 mmHg 10/13/20 14:48 FiO2 28.0 10/13/20 14:48 Blood Gas Comments Pt negro well eb 10/13/20 14:48 Sodium 149 mmol/L (136-145) H 10/16/20 05:11 Corrected Sodium TNP 10/16/20 05:11 Potassium 3.9 mmol/L (3.5-5.1) 10/16/20 05:11 Chloride 112 mmol/L (98-107) H 10/16/20 05:11 Carbon Dioxide 30.5 mmol/L (21-32) 10/16/20 05:11 BUN 4 mg/dL (7-18) L 10/16/20 05:11 Creatinine 0.76 mg/dL (0.55-1.02) 10/16/20 05:11 Est GFR (MDRD) Af Amer > 60 (>60) 10/16/20 05:11 Est GFR (MDRD) Non-Af > 60 (>60) 10/16/20 05:11 Glucose 100 mg/dL (65-99) H 10/16/20 05:11 Calcium 8.5 mg/dL (8.5-10.1) 10/16/20 05:11 Corrected Calcium 9.7 mg/dL (8.5-10.1) 10/14/20 05:20 Total Bilirubin 0.40 mg/dL (0.2-1.0) 10/14/20 05:20 AST 16 Units/L (15-37) 10/14/20 05:20 ALT 15 Units/L (12-78) 10/14/20 05:20 Alkaline Phosphatase 71 Units/L (46-116) 10/14/20 05:20 Total Protein 5.7 g/dL (6.4-8.2) L 10/14/20 05:20 Albumin 2.6 g/dL (3.4-5.0) L 10/14/20 05:20 Globulin 3.1 g/dL (2.5-4.5) 10/14/20 05:20 Albumin/Globulin Ratio 0.8 Ratio (1.1-2.1) L 10/14/20 05:20 Specimen Type Clean catch urine 10/13/20 17:00 Urine Color Straw (YELLOW) 10/13/20 17:00 Urine Appearance Clear (CLEAR) 10/13/20 17:00 Urine pH 7.0 (5.0 - 8.0) 10/13/20 17:00 Ur Specific [place] 1.010 (1.000-1.030) 10/13/20 17:00 Urine Protein 2+ (NEGATIVE) 10/13/20 17:00 Urine Glucose (UA) Negative (NEGATIVE) 10/13/20 17:00 Urine Ketones Negative (NEGATIVE) 10/13/20 17:00 Urine Occult Blood Negative (NEGATIVE) 10/13/20 17:00 Urine Nitrite Negative (NEGATIVE) 10/13/20 17:00 Urine Bilirubin Negative (NEGATIVE) 10/13/20 17:00 Urine Urobilinogen Normal (NORMAL) 10/13/20 17:00 Ur Leukocyte Esterase Negative (NEGATIVE) 10/13/20 17:00 Urine RBC None seen /HPF (0-3) 10/13/20 17:00 Urine WBC None seen /HPF (0-5) 10/13/20 17:00 Ur Squamous Epith Cells Rare /HPF (NEGATIVE) 10/13/20 17:00 Urine Bacteria Negative /HPF (NEGATIVE) 10/13/20 17:00 Ur Culture Indicated? No/not indicated 10/13/20 17:00 Vancomycin Trough 10.7 ug/mL (15-20) L 10/15/20 20:39 SARS CoV-2 RNA Rapid GIANFRANCO Negative (NEGATIVE) 10/13/20 16:22 Plan (1) Hypernatremia: Status: Acute (2) Pneumonia: Status: Acute Qualifiers: Aspiration pneumonia type: unspecified Laterality: bilateral Lung location: unspecified part of lung Pneumonia type: aspiration pneumonia Qualified Code(s): J69.0 - Pneumonitis due to inhalation of food and vomit (3) Generalized weakness: Status: Inactive (4) Acute respiratory distress: Status: Inactive (5) Pulmonary embolism: Status: Inactive Qualifiers: Acute cor pulmonale presence: unspecified Chronicity: chronic Pulmonary embolism type: unspecified Qualified Code(s): I27.82 - Chronic pulmonary embolism (6) Oxygen dependent: Status: Inactive (7) Anemia: Status: Inactive Qualifiers: Anemia type: unspecified type Qualified Code(s): D64.9 - Anemia, unspecified (8) Atrial fibrillation: Status: Chronic Qualifiers: Atrial fibrillation type: unspecified Qualified Code(s): I48.91 - Unspecified atrial fibrillation (9) CVA (cerebral vascular accident): Status: Chronic Qualifiers: CVA mechanism: unspecified Qualified Code(s): I63.9 - Cerebral infarction, unspecified
[2020-10-16] MEDS: SYNTHROID 88 mcg TAB PO SCH (17:54)
[2020-10-16] MEDS: ZOFRAN INJ 4 MG VIAL IVP PRN (19:00)
[2020-10-16] MEDS: MAALOX or MYLANTA PO PRN (19:10)
[2020-10-16] MEDS: SINGULAIR TAB 10 MG PO SCH (21:04)
[2020-10-17] MEDS ORDERED: NS 1/2 1000 ML IV 1,000 ML IV ONE ×2 (03:43→17:01)
[2020-10-17 05:30] LABS: BASOPHILS # (AUTO) 0.1 X10^3/uL (0.0-0.1); BASOPHILS % (AUTO) 0.5 % (0.2-1.0); EOSINOPHILS # (AUTO) 0.4 x10^3/uL (0.0-0.2); EOSINOPHILS % (AUTO) 3.3 % (0.9-2.9); HEMATOCRIT 30.2 % (36.0-47.0); LYMPHOCYTES # (AUTO) 1.3 X10^3/uL (1.3-2.9); LYMPHOCYTES % (AUTO) 11.9 % (21.0-51.0); MEAN CORPUSCULAR HEMOGLOBIN 29.7 pg (27.0-34.0); MEAN CORPUSCULAR HGB CONC 33.2 g/dL (33.0-35.0); MEAN CORPUSCULAR VOLUME 89.5 fL (80.0-100.0); MEAN PLATELET VOLUME 9.1 fL (7.4-11.0); MONOCYTES # (AUTO) 1.1 x10^3/uL (0.3-0.8); NEUTROPHILS # (AUTO) 8.2 x10^3/uL (2.2-4.8); NEUTROPHILS % (AUTO) 74.3 % (42.0-75.0); PLATELET COUNT 226 X10^3/uL (150.0-450.0); RED BLOOD COUNT 3.37 X10^6/uL (3.5-5.4); RED CELL DISTRIBUTION WIDTH 14.8 % (11.6-16.5)
[2020-10-17 05:43] LABS: BLOOD UREA NITROGEN 4 mg/dL (7-18); CALCIUM 8.4 mg/dL (8.5-10.1); CHLORIDE 112 mmol/L (98-107); SODIUM 147 mmol/L (136-145); eGFR NON BLACK RACES > 60 (>60)
[2020-10-17] MEDS: NS 1/2 1000 ML IV 1,000 ML IV SCH ×3 (06:12→17:07)
[2020-10-17] MEDS: NEURONTIN CAP 400 MG PO SCH ×3 (06:13→22:05)
[2020-10-17] MEDS: ZOSYN VIAL 3.375 GRAMS 3.375 G in NS 100 ML IV + SPIKE MINIBAG* 100 ML IV SCH ×3 (06:13→21:30)
[2020-10-17] MEDS: LIORESAL PO SCH ×3 (06:13→22:05)
[2020-10-17] MEDS ORDERED: VITAMIN D (1.25MG) PO SCH (09:00)
[2020-10-17] MEDS: PULMICORT NEB TX 0.5 MG NEB SCH ×2 (09:22→21:00)
[2020-10-17] MEDS: DUONEB 0.5 MG/3 MG (3 mL) NEB SCH ×4 (09:22→21:00)
[2020-10-17] MEDS: ROBITUSSIN DM PO SCH ×4 (09:31→21:30)
[2020-10-17] MEDS: PriLOSEC PO SCH (09:31)
[2020-10-17] MEDS: REQUIP PO SCH ×2 (09:31→21:30)
[2020-10-17] MEDS: VANCOMYCIN IV *PREMIX 1.25 G/250 ML BAG 1.25 G/250 ML PIGGYBACK IV SCH ×2 (09:31→21:30)
[2020-10-17] MEDS: ELIQUIS PO SCH ×2 (09:32→21:30)
[2020-10-17] MEDS: PEPCID TAB 40 MG PO SCH ×2 (09:32→21:30)
[2020-10-17] MEDS: KEPPRA TAB 500 MG PO SCH ×2 (09:32→21:30)
[2020-10-17] MEDS: PROzac PO SCH (09:32)
[2020-10-17] MEDS: LIPITOR TAB 80 MG PO SCH (09:32)
[2020-10-17] MEDS: CLARITIN PO SCH (09:33)
--- NOTE | 2020-10-17 14:26 | PCM.PROG ---
Progress Note Progress Note for Day of Date of Exam: 10/17/20 Subjective Subjective: Patient in bed receiving JN with family member at bedside, no acute events overnight. She continues to have a nonproductive cough but no fevers or chills; periodic wheezing; feels about the same. Past Medical Family Social History Past Med/Fam/Surg Hx: No changes since H&P Allergies: Allergies Sulfa (Sulfonamide Antibiotics) [SULFA] Allergy (Verified 03/17/20 08:00) Review of Systems ROS: No change since H&P Vital Signs and I&O's Vital Signs: Temperature 98.1 F Pulse Rate [Left Brachial] 80 Pulse Rate 78 Respiratory Rate 20 Blood Pressure [Right Arm] 111/61 Blood Pressure 91/50 O2 Sat by Pulse Oximetry 96 Intake and Output: Intake & Output 10/14/20 10/15/20 10/16/20 10/17/20 23:59 23:59 23:59 23:59 Intake Total 4 / 3014 1946 / 1946 2725 / 2725 457 / 457 Balance 3014 / 3014 1946 / 1946 2725 / 2725 457 / 457 Physical Exam Oriented: Normal Eyes: Normal Ear: Normal Nose: Normal Throat: Normal Respiratory: Diminished Cardiovascular: Normal Auscultation: Bowel Sounds: Normal Tenderness: Normal Skin: Normal Musculoskeletal: Normal Psychiatric: Normal Mood Description: Calm and Appropriate Affect: Normal Speech Pattern: Clear and Appropriate Laboratory and Diagnostics Result Diagrams: 10/17/20 04:40 10/17/20 04:40 Labs: 10/13/20 14:38 Blood Blood Culture - Preliminary 10/13/20 14:30 Blood Blood Culture - Preliminary Laboratory WBC 11.0 X10^3/uL (3.6-10.0) H 10/17/20 04:40 RBC 3.37 X10^6/uL (3.5-5.4) L 10/17/20 04:40 Hgb 10.0 g/dL (12.0-16.0) L 10/17/20 04:40 Hct 30.2 % (36.0-47.0) L 10/17/20 04:40 MCV 89.5 fL (80.0-100.0) 10/17/20 04:40 MCH 29.7 pg (27.0-34.0) 10/17/20 04:40 MCHC 33.2 g/dL (33.0-35.0) 10/17/20 04:40 RDW 14.8 % (11.6-16.5) 10/17/20 04:40 Plt Count 226 X10^3/uL (150.0-450.0) 10/17/20 04:40 Plt Count Comment Adequate (ADEQUATE) 10/13/20 14:30 MPV 9.1 fL (7.4-11.0) 10/17/20 04:40 Neut % (Auto) 74.3 % (42.0-75.0) 10/17/20 04:40 Lymph % (Auto) 11.9 % (21.0-51.0) L 10/17/20 04:40 [place] % (Auto) 10.0 % (0.0-13.0) 10/17/20 04:40 Eos % (Auto) 3.3 % (0.9-2.9) H 10/17/20 04:40 Baso % (Auto) 0.5 % (0.2-1.0) 10/17/20 04:40 Neut # (Auto) 8.2 x10^3/uL (2.2-4.8) H 10/17/20 04:40 Lymph # (Auto) 1.3 X10^3/uL (1.3-2.9) 10/17/20 04:40 [place] # (Auto) 1.1 x10^3/uL (0.3-0.8) H 10/17/20 04:40 Eos # (Auto) 0.4 x10^3/uL (0.0-0.2) H 10/17/20 04:40 Baso # (Auto) 0.1 X10^3/uL (0.0-0.1) 10/17/20 04:40 Absolute Nucleated RBC 0.0 /100WBC 10/17/20 04:40 Total Counted 100 10/13/20 14:30 Neutrophils % (Manual) 85 % (39-76) H 10/13/20 14:30 Band Neutrophils % 9 % (0-10) 10/13/20 14:30 Lymphocytes % (Manual) 2 % (13-43) L 10/13/20 14:30 Monocytes % (Manual) 4 % (4-9) 10/13/20 14:30 Plt Morphology Comment Normal (NORMAL) 10/13/20 14:30 RBC Morphology Abnormal (NORMAL) A 10/13/20 14:30 Anisocytosis 1+ A 10/13/20 14:30 D-Dimer 0.59 ug/ml (0.0-0.57) H* 10/13/20 14:30 Sample Site Rbra 10/13/20 14:48 ABG pH 7.450 (7.35-7.45) 10/13/20 14:48 ABG pCO2 48.0 mmHg (35.0-45.0) H 10/13/20 14:48 ABG pO2 88.0 mmHg (80.0-100.0) 10/13/20 14:48 ABG HCO3 33.4 mmol/L (22-26) H* 10/13/20 14:48 ABG O2 Saturation 97.0 % (90-100) 10/13/20 14:48 ABG Base Excess 8.2 mmol/L (-2.0-2.0) H 10/13/20 14:48 Reagan Test Na 10/13/20 14:48 A-a Gradient 52.0 mmHg 10/13/20 14:48 FiO2 28.0 10/13/20 14:48 Blood Gas Comments Pt negro well eb 10/13/20 14:48 Sodium 147 mmol/L (136-145) H 10/17/20 04:40 Corrected Sodium TNP 10/17/20 04:40 Potassium 4.2 mmol/L (3.5-5.1) 10/17/20 04:40 Chloride 112 mmol/L (98-107) H 10/17/20 04:40 Carbon Dioxide 29.0 mmol/L (21-32) 10/17/20 04:40 BUN 4 mg/dL (7-18) L 10/17/20 04:40 Creatinine 0.70 mg/dL (0.55-1.02) 10/17/20 04:40 Est GFR (MDRD) Af Amer > 60 (>60) 10/17/20 04:40 Est GFR (MDRD) Non-Af > 60 (>60) 10/17/20 04:40 Glucose 99 mg/dL (65-99) 10/17/20 04:40 Calcium 8.4 mg/dL (8.5-10.1) L 10/17/20 04:40 Corrected Calcium 9.7 mg/dL (8.5-10.1) 10/14/20 05:20 Total Bilirubin 0.40 mg/dL (0.2-1.0) 10/14/20 05:20 AST 16 Units/L (15-37) 10/14/20 05:20 ALT 15 Units/L (12-78) 10/14/20 05:20 Alkaline Phosphatase 71 Units/L (46-116) 10/14/20 05:20 Total Protein 5.7 g/dL (6.4-8.2) L 10/14/20 05:20 Albumin 2.6 g/dL (3.4-5.0) L 10/14/20 05:20 Globulin 3.1 g/dL (2.5-4.5) 10/14/20 05:20 Albumin/Globulin Ratio 0.8 Ratio (1.1-2.1) L 10/14/20 05:20 Specimen Type Clean catch urine 10/13/20 17:00 Urine Color Straw (YELLOW) 10/13/20 17:00 Urine Appearance Clear (CLEAR) 10/13/20 17:00 Urine pH 7.0 (5.0 - 8.0) 10/13/20 17:00 Ur Specific [place] 1.010 (1.000-1.030) 10/13/20 17:00 Urine Protein 2+ (NEGATIVE) 10/13/20 17:00 Urine Glucose (UA) Negative (NEGATIVE) 10/13/20 17:00 Urine Ketones Negative (NEGATIVE) 10/13/20 17:00 Urine Occult Blood Negative (NEGATIVE) 10/13/20 17:00 Urine Nitrite Negative (NEGATIVE) 10/13/20 17:00 Urine Bilirubin Negative (NEGATIVE) 10/13/20 17:00 Urine Urobilinogen Normal (NORMAL) 10/13/20 17:00 Ur Leukocyte Esterase Negative (NEGATIVE) 10/13/20 17:00 Urine RBC None seen /HPF (0-3) 10/13/20 17:00 Urine WBC None seen /HPF (0-5) 10/13/20 17:00 Ur Squamous Epith Cells Rare /HPF (NEGATIVE) 10/13/20 17:00 Urine Bacteria Negative /HPF (NEGATIVE) 10/13/20 17:00 Ur Culture Indicated? No/not indicated 10/13/20 17:00 Vancomycin Trough 10.7 ug/mL (15-20) L 10/15/20 20:39 SARS CoV-2 RNA Rapid GIANFRANCO Negative (NEGATIVE) 10/13/20 16:22 Plan (1) Hypernatremia: Status: Acute Plan: Improving slowly; follow. (2) Pneumonia: Status: Acute Qualifiers: Aspiration pneumonia type: unspecified Laterality: bilateral Lung location: unspecified part of lung Pneumonia type: aspiration pneumonia Qualified Code(s): J69.0 - Pneumonitis due to inhalation of food and vomit Plan: Improving with abx; follow. (3) Generalized weakness: Status: Inactive (4) Acute respiratory distress: Status: Inactive (5) Pulmonary embolism: Status: Inactive Qualifiers: Pulmonary embolism type: unspecified Chronicity: chronic Acute cor pulmonale presence: unspecified Qualified Code(s): I27.82 - Chronic pulmonary embolism (6) Oxygen dependent: Status: Inactive (7) Anemia: Status: Inactive Qualifiers: Anemia type: unspecified type Qualified Code(s): D64.9 - Anemia, unspecified (8) Atrial fibrillation: Status: Chronic Qualifiers: Atrial fibrillation type: unspecified Qualified Code(s): I48.91 - Unspecified atrial fibrillation (9) CVA (cerebral vascular accident): Status: Chronic Qualifiers: CVA mechanism: unspecified Qualified Code(s): I63.9 - Cerebral infarction, unspecified (10) Bronchiectasis: Status: Acute Plan: Slowly improving with current abx; follow.
[2020-10-17] MEDS: SYNTHROID 88 mcg TAB PO SCH (17:07)
[2020-10-17] MEDS ORDERED: PHARMACY COMMENT IV NR (20:30)
[2020-10-17 20:45] LABS: CREATININE 0.83 mg/dL (0.55-1.02); VANCOMYCIN,TROUGH 16.3 ug/mL (15-20)
[2020-10-17] MEDS: SINGULAIR TAB 10 MG PO SCH (21:30)
[2020-10-18] MEDS: NS 1/2 1000 ML IV 1,000 ML IV SCH ×3 (06:04→18:11)
[2020-10-18] MEDS: ZOSYN VIAL 3.375 GRAMS 3.375 G in NS 100 ML IV + SPIKE MINIBAG* 100 ML IV SCH ×3 (06:04→22:55)
[2020-10-18] MEDS: ELIQUIS PO SCH ×2 (08:58→20:35)
[2020-10-18] MEDS: KEPPRA TAB 500 MG PO SCH ×2 (08:58→20:35)
[2020-10-18] MEDS: PEPCID TAB 40 MG PO SCH ×2 (08:58→20:36)
[2020-10-18] MEDS: CLARITIN PO SCH (08:58)
[2020-10-18] MEDS: LIPITOR TAB 80 MG PO SCH (08:58)
[2020-10-18] MEDS: PULMICORT NEB TX 0.5 MG NEB SCH ×2 (08:59→20:37)
[2020-10-18] MEDS: VANCOMYCIN IV *PREMIX 1.25 G/250 ML BAG 1.25 G/250 ML PIGGYBACK IV SCH ×2 (08:59→20:36)
[2020-10-18] MEDS: DUONEB 0.5 MG/3 MG (3 mL) NEB SCH ×4 (08:59→20:37)
[2020-10-18] MEDS: PROzac PO SCH (08:59)
[2020-10-18] MEDS: PriLOSEC PO SCH (08:59)
[2020-10-18] MEDS: ROBITUSSIN DM PO SCH ×4 (08:59→20:36)
--- NOTE | 2020-10-18 14:30 | PCM.PROG ---
Progress Note Progress Note for Day of Date of Exam: 10/18/20 Subjective Subjective: Sleeping; somnolent and denies complaints. Past Medical Family Social History Past Med/Fam/Surg Hx: No changes since H&P Allergies: Allergies Sulfa (Sulfonamide Antibiotics) [SULFA] Allergy (Verified 03/17/20 08:00) Review of Systems ROS: No change since H&P Vital Signs and I&O's Vital Signs: Temperature 97.8 F Pulse Rate [Left Brachial] 83 Pulse Rate 83 Respiratory Rate 20 Blood Pressure [Right Arm] 136/64 Blood Pressure 91/50 O2 Sat by Pulse Oximetry 100 Intake and Output: Intake & Output 10/15/20 10/16/20 10/17/20 10/18/20 23:59 23:59 23:59 23:59 Intake Total 1946 2725 / 2725 1277 / 1277 1382 / 1382 Balance 1946 2725 / 2725 1277 / 1277 1382 / 1382 Physical Exam Oriented: Normal Eyes: Normal Ear: Normal Nose: Normal Throat: Normal Respiratory: Diminished (clear) Cardiovascular: Normal Auscultation: Bowel Sounds: Normal Tenderness: Normal Skin: Normal Musculoskeletal: Normal Psychiatric: Normal Mood Description: Calm and Appropriate Affect: Normal Speech Pattern: Clear and Appropriate Laboratory and Diagnostics Result Diagrams: 10/17/20 04:40 10/17/20 20:15 Labs: 10/13/20 14:38 Blood Blood Culture - Preliminary 10/13/20 14:30 Blood Blood Culture - Preliminary Laboratory WBC 11.0 X10^3/uL (3.6-10.0) H 10/17/20 04:40 RBC 3.37 X10^6/uL (3.5-5.4) L 10/17/20 04:40 Hgb 10.0 g/dL (12.0-16.0) L 10/17/20 04:40 Hct 30.2 % (36.0-47.0) L 10/17/20 04:40 MCV 89.5 fL (80.0-100.0) 10/17/20 04:40 MCH 29.7 pg (27.0-34.0) 10/17/20 04:40 MCHC 33.2 g/dL (33.0-35.0) 10/17/20 04:40 RDW 14.8 % (11.6-16.5) 10/17/20 04:40 Plt Count 226 X10^3/uL (150.0-450.0) 10/17/20 04:40 Plt Count Comment Adequate (ADEQUATE) 10/13/20 14:30 MPV 9.1 fL (7.4-11.0) 10/17/20 04:40 Neut % (Auto) 74.3 % (42.0-75.0) 10/17/20 04:40 Lymph % (Auto) 11.9 % (21.0-51.0) L 10/17/20 04:40 [place] % (Auto) 10.0 % (0.0-13.0) 10/17/20 04:40 Eos % (Auto) 3.3 % (0.9-2.9) H 10/17/20 04:40 Baso % (Auto) 0.5 % (0.2-1.0) 10/17/20 04:40 Neut # (Auto) 8.2 x10^3/uL (2.2-4.8) H 10/17/20 04:40 Lymph # (Auto) 1.3 X10^3/uL (1.3-2.9) 10/17/20 04:40 [place] # (Auto) 1.1 x10^3/uL (0.3-0.8) H 10/17/20 04:40 Eos # (Auto) 0.4 x10^3/uL (0.0-0.2) H 10/17/20 04:40 Baso # (Auto) 0.1 X10^3/uL (0.0-0.1) 10/17/20 04:40 Absolute Nucleated RBC 0.0 /100WBC 10/17/20 04:40 Total Counted 100 10/13/20 14:30 Neutrophils % (Manual) 85 % (39-76) H 10/13/20 14:30 Band Neutrophils % 9 % (0-10) 10/13/20 14:30 Lymphocytes % (Manual) 2 % (13-43) L 10/13/20 14:30 Monocytes % (Manual) 4 % (4-9) 10/13/20 14:30 Plt Morphology Comment Normal (NORMAL) 10/13/20 14:30 RBC Morphology Abnormal (NORMAL) A 10/13/20 14:30 Anisocytosis 1+ A 10/13/20 14:30 D-Dimer 0.59 ug/ml (0.0-0.57) H* 10/13/20 14:30 Sample Site Rbra 10/13/20 14:48 ABG pH 7.450 (7.35-7.45) 10/13/20 14:48 ABG pCO2 48.0 mmHg (35.0-45.0) H 10/13/20 14:48 ABG pO2 88.0 mmHg (80.0-100.0) 10/13/20 14:48 ABG HCO3 33.4 mmol/L (22-26) H* 10/13/20 14:48 ABG O2 Saturation 97.0 % (90-100) 10/13/20 14:48 ABG Base Excess 8.2 mmol/L (-2.0-2.0) H 10/13/20 14:48 Reagan Test Na 10/13/20 14:48 A-a Gradient 52.0 mmHg 10/13/20 14:48 FiO2 28.0 10/13/20 14:48 Blood Gas Comments Pt negro well eb 10/13/20 14:48 Sodium 147 mmol/L (136-145) H 10/17/20 04:40 Corrected Sodium TNP 10/17/20 04:40 Potassium 4.2 mmol/L (3.5-5.1) 10/17/20 04:40 Chloride 112 mmol/L (98-107) H 10/17/20 04:40 Carbon Dioxide 29.0 mmol/L (21-32) 10/17/20 04:40 BUN 4 mg/dL (7-18) L 10/17/20 04:40 Creatinine 0.83 mg/dL (0.55-1.02) 10/17/20 20:15 Est GFR (MDRD) Af Amer > 60 (>60) 10/17/20 04:40 Est GFR (MDRD) Non-Af > 60 (>60) 10/17/20 04:40 Glucose 99 mg/dL (65-99) 10/17/20 04:40 Calcium 8.4 mg/dL (8.5-10.1) L 10/17/20 04:40 Corrected Calcium 9.7 mg/dL (8.5-10.1) 10/14/20 05:20 Total Bilirubin 0.40 mg/dL (0.2-1.0) 10/14/20 05:20 AST 16 Units/L (15-37) 10/14/20 05:20 ALT 15 Units/L (12-78) 10/14/20 05:20 Alkaline Phosphatase 71 Units/L (46-116) 10/14/20 05:20 Total Protein 5.7 g/dL (6.4-8.2) L 10/14/20 05:20 Albumin 2.6 g/dL (3.4-5.0) L 10/14/20 05:20 Globulin 3.1 g/dL (2.5-4.5) 10/14/20 05:20 Albumin/Globulin Ratio 0.8 Ratio (1.1-2.1) L 10/14/20 05:20 Specimen Type Clean catch urine 10/13/20 17:00 Urine Color Straw (YELLOW) 10/13/20 17:00 Urine Appearance Clear (CLEAR) 10/13/20 17:00 Urine pH 7.0 (5.0 - 8.0) 10/13/20 17:00 Ur Specific [place] 1.010 (1.000-1.030) 10/13/20 17:00 Urine Protein 2+ (NEGATIVE) 10/13/20 17:00 Urine Glucose (UA) Negative (NEGATIVE) 10/13/20 17:00 Urine Ketones Negative (NEGATIVE) 10/13/20 17:00 Urine Occult Blood Negative (NEGATIVE) 10/13/20 17:00 Urine Nitrite Negative (NEGATIVE) 10/13/20 17:00 Urine Bilirubin Negative (NEGATIVE) 10/13/20 17:00 Urine Urobilinogen Normal (NORMAL) 10/13/20 17:00 Ur Leukocyte Esterase Negative (NEGATIVE) 10/13/20 17:00 Urine RBC None seen /HPF (0-3) 10/13/20 17:00 Urine WBC None seen /HPF (0-5) 10/13/20 17:00 Ur Squamous Epith Cells Rare /HPF (NEGATIVE) 10/13/20 17:00 Urine Bacteria Negative /HPF (NEGATIVE) 10/13/20 17:00 Ur Culture Indicated? No/not indicated 10/13/20 17:00 Vancomycin Trough 16.3 ug/mL (15-20) 10/17/20 20:15 SARS CoV-2 RNA Rapid GIANFRANCO Negative (NEGATIVE) 10/13/20 16:22 Plan (1) Hypernatremia: Status: Acute Plan: Improved to 147; repeat in am. (2) Pneumonia: Status: Acute Qualifiers: Aspiration pneumonia type: unspecified Laterality: bilateral Lung location: unspecified part of lung Pneumonia type: aspiration pneumonia Qualified Code(s): J69.0 - Pneumonitis due to inhalation of food and vomit Plan: Zosyn #5, Vanc #3; improved; home when back to baseline. (3) Generalized weakness: Status: Inactive Plan: Continue PT. (4) Acute respiratory distress: Status: Inactive (5) Pulmonary embolism: Status: Inactive Qualifiers: Pulmonary embolism type: unspecified Chronicity: chronic Acute cor pulmonale presence: unspecified Qualified Code(s): I27.82 - Chronic pulmonary embolism Plan: Continue eliquis as written. (6) Oxygen dependent: Status: Inactive (7) Anemia: Status: Inactive Qualifiers: Anemia type: unspecified type Qualified Code(s): D64.9 - Anemia, unspecified (8) Atrial fibrillation: Status: Chronic Qualifiers: Atrial fibrillation type: unspecified Qualified Code(s): I48.91 - Unspecified atrial fibrillation (9) CVA (cerebral vascular accident): Status: Chronic Qualifiers: CVA mechanism: unspecified Qualified Code(s): I63.9 - Cerebral infarction, unspecified (10) Bronchiectasis: Status: Acute Plan: Slowly improving with current abx; follow.
[2020-10-18] MEDS: SYNTHROID 88 mcg TAB PO SCH (16:56)
[2020-10-18] MEDS ORDERED: NS 1/2 1000 ML IV 1,000 ML IV ONE (18:05)
[2020-10-18] MEDS: ZOFRAN INJ 4 MG VIAL IVP PRN (18:12)
[2020-10-18] MEDS: LIORESAL PO SCH (20:35)
[2020-10-18] MEDS: REQUIP PO SCH (20:36)
[2020-10-18] MEDS: SINGULAIR TAB 10 MG PO SCH (20:36)
[2020-10-18] MEDS: NEURONTIN CAP 400 MG PO SCH (20:36)
[2020-10-18] MEDS ORDERED: LIORESAL PO SCH (21:00)
[2020-10-18] MEDS ORDERED: NEURONTIN CAP 400 MG PO SCH (21:00)
[2020-10-19] MEDS: NS 1/2 1000 ML IV 1,000 ML IV SCH (04:12)
[2020-10-19] MEDS: ZOSYN VIAL 3.375 GRAMS 3.375 G in NS 100 ML IV + SPIKE MINIBAG* 100 ML IV SCH (05:04)
[2020-10-19 05:15] LABS: BASOPHILS # (AUTO) 0.1 X10^3/uL (0.0-0.1); BASOPHILS % (AUTO) 0.8 % (0.2-1.0); EOSINOPHILS # (AUTO) 0.4 x10^3/uL (0.0-0.2); EOSINOPHILS % (AUTO) 3.7 % (0.9-2.9); HEMATOCRIT 32.3 % (36.0-47.0); HEMOGLOBIN 10.6 g/dL (12.0-16.0); LYMPHOCYTES # (AUTO) 1.6 X10^3/uL (1.3-2.9); LYMPHOCYTES % (AUTO) 14.6 % (21.0-51.0); MEAN CORPUSCULAR HEMOGLOBIN 29.4 pg (27.0-34.0); MEAN CORPUSCULAR HGB CONC 32.9 g/dL (33.0-35.0); MEAN CORPUSCULAR VOLUME 89.4 fL (80.0-100.0); MEAN PLATELET VOLUME 8.9 fL (7.4-11.0); MONOCYTES % (AUTO) 9.3 % (0.0-13.0); NEUTROPHILS # (AUTO) 7.6 x10^3/uL (2.2-4.8); NEUTROPHILS % (AUTO) 71.6 % (42.0-75.0); PLATELET COUNT 237 X10^3/uL (150.0-450.0); RED BLOOD COUNT 3.61 X10^6/uL (3.5-5.4); RED CELL DISTRIBUTION WIDTH 14.8 % (11.6-16.5); WHITE BLOOD COUNT 10.6 X10^3/uL (3.6-10.0)
[2020-10-19 05:33] LABS: ALANINE AMINOTRANSFERASE 18 Units/L (12-78); ALBUMIN 2.5 g/dL (3.4-5.0); ALKALINE PHOSPHATASE 78 Units/L (46-116); ASPARTATE AMINO TRANSFERASE 11 Units/L (15-37); BLOOD UREA NITROGEN 4 mg/dL (7-18); CALCIUM 8.8 mg/dL (8.5-10.1); CARBON DIOXIDE 31.7 mmol/L (21-32); CHLORIDE 110 mmol/L (98-107); CREATININE 0.77 mg/dL (0.55-1.02); SODIUM 146 mmol/L (136-145); eGFR NON BLACK RACES > 60 (>60)
[2020-10-19] MEDS: DUONEB 0.5 MG/3 MG (3 mL) NEB SCH (08:45)
[2020-10-19] MEDS: PULMICORT NEB TX 0.5 MG NEB SCH (08:45)
[2020-10-19] MEDS: VANCOMYCIN IV *PREMIX 1.25 G/250 ML BAG 1.25 G/250 ML PIGGYBACK IV SCH (09:18)
[2020-10-19] MEDS: PriLOSEC PO SCH (09:22)
[2020-10-19] MEDS: PEPCID TAB 40 MG PO SCH (09:22)
[2020-10-19] MEDS: ELIQUIS PO SCH (09:22)
[2020-10-19] MEDS: LIPITOR TAB 80 MG PO SCH (09:22)
[2020-10-19] MEDS: KEPPRA TAB 500 MG PO SCH (09:23)
[2020-10-19] MEDS: PROzac PO SCH (09:23)
[2020-10-19] MEDS: CLARITIN PO SCH (09:23)
[2020-10-19] MEDS: ROBITUSSIN DM PO SCH (09:24)
--- NOTE | 2020-10-19 11:55 | RAD ---
CHEST, 1 VIEWHISTORY: HYPOXIA, PNEUMONIAStudy: Single view of the chest.Comparison:October 14, 2020Findings:The cardiomediastinal silhouette is normal.Diffusely improved appearance of the lungs with some streaky interstitial opacities remaining bilaterally. Osseous structures demonstrate no acute abnormality.IMPRESSION:1. Improved aeration of the lungs bilaterally.Electronically signed by: LEEANNA NICOLE (Oct 19, 2020 11:54:04)
--- NOTE | 2020-10-19 13:02 | W.DIS.FURT ---
Summary of Discharge Discharge Summary of Date Date of Exam: 10/19/20 Admission Date Date of Admission: 10/13/20 Admission Diagnosis Patient Problems (Updated 10/17/20 @ 14:25 by Carolina Shah) Pneumonia (Acute) J18.9 Hospital Course: Ms. Umanzor is a 69y/o female with a PMH of arthritis, CVA in 2018, Hx of PE, HTN, HLD, GERD, hypothyroidism, anxiety and depression presented with worsening dyspnea. Patient has been on home O2 2L since she had covid pneumonia few months ago. Patient required a prolonged stay in [facility] and then rehab. She stated feeling sick on Monday and felt weak. The next day she had fever, Tmax 101, chills and cough. She also started having pleuritic chest pain and shortness of breath. She has a hx of aspiration pneumonia. Denies sick contact at home. Denies GI Sx. In the ER, her WBC was elevated at 23.3, Hgb 9.7 and elevated d-dimer. ABG showed hypoxia. COVID-19 test was negative. CTA showed no PE but multifocal pneumonia, bilateral upper lobe involvement and emphysema. Patient had severe COVID 19 pneumonia few months ago and was transferred to [facility]. She also has a hx of aspiration pneumonia. Patient was started on IV vancomycin and zosyn. She also received duonebs. She uses 2L home oxygen and remained on the same while admitted. PT/OT and RT were consulted. Patient's cough and dyspnea gradually improved. She remained afebrile. Her WBC count normalized and symptoms improved. Patient already has physical therapy set up as outpatient. She was stable for discharge. She will follow up with PCP in one week. Vital Signs: Vital Signs (72 hours) 10/16/20 16:00 10/16/20 20:00 10/16/20 21:00 Temperature 98.1 F 97.6 F Pulse Rate 77 Pulse Rate [Left Brachial] 82 87 Respiratory Rate 20 18 Blood Pressure [Right Arm] 148/63 118/72 O2 Sat by Pulse Oximetry 96 95 98 10/17/20 00:00 10/17/20 04:00 10/17/20 08:00 Temperature 97.7 F 97.9 F 98.9 F Pulse Rate Pulse Rate [Left Brachial] 78 85 90 Respiratory Rate 18 18 19 Blood Pressure [Right Arm] 131/71 134/72 147/74 O2 Sat by Pulse Oximetry 96 98 95 10/17/20 09:22 10/17/20 12:00 10/17/20 12:26 Temperature 98.1 F Pulse Rate 90 78 Pulse Rate [Left Brachial] 80 Respiratory Rate 20 Blood Pressure [Right Arm] 111/61 O2 Sat by Pulse Oximetry 96 95 96 10/17/20 16:00 10/17/20 17:35 10/17/20 20:00 Temperature 98.6 F 97.7 F Pulse Rate 80 Pulse Rate [Left Brachial] 81 92 H Respiratory Rate 20 18 Blood Pressure [Right Arm] 115/63 141/64 O2 Sat by Pulse Oximetry 96 96 96 10/17/20 21:00 10/18/20 00:00 10/18/20 04:00 Temperature 99.4 F 99.4 F Pulse Rate 88 Pulse Rate [Left Brachial] 86 86 Respiratory Rate 18 18 Blood Pressure [Right Arm] 137/60 137/63 O2 Sat by Pulse Oximetry 97 97 97 10/18/20 08:00 10/18/20 08:59 10/18/20 11:51 Temperature 98.4 F Pulse Rate 83 83 Pulse Rate [Left Brachial] 89 Respiratory Rate 20 Blood Pressure [Right Arm] 114/68 O2 Sat by Pulse Oximetry 96 96 98 10/18/20 12:00 10/18/20 16:00 10/18/20 17:23 Temperature 97.8 F 98.6 F Pulse Rate 81 Pulse Rate [Left Brachial] 83 90 Respiratory Rate 20 20 Blood Pressure [Right Arm] 136/64 129/68 O2 Sat by Pulse Oximetry 100 99 99 10/18/20 20:00 10/18/20 20:37 10/18/20 23:55 Temperature 98.2 F 98.1 F Pulse Rate 79 Pulse Rate [Left Brachial] 86 83 Respiratory Rate 18 20 Blood Pressure [Right Arm] 138/63 116/56 O2 Sat by Pulse Oximetry 97 97 98 10/19/20 03:53 10/19/20 08:00 Temperature 97.9 F 98.3 F Pulse Rate Pulse Rate [Left Brachial] 83 82 Respiratory Rate 18 22 Blood Pressure [Right Arm] 133/62 154/68 O2 Sat by Pulse Oximetry 99 96 Labs: Laboratory Last Values WBC 10.6 X10^3/uL (3.6-10.0) H 10/19/20 04:45 RBC 3.61 X10^6/uL (3.5-5.4) 10/19/20 04:45 Hgb 10.6 g/dL (12.0-16.0) L 10/19/20 04:45 Hct 32.3 % (36.0-47.0) L 10/19/20 04:45 MCV 89.4 fL (80.0-100.0) 10/19/20 04:45 MCH 29.4 pg (27.0-34.0) 10/19/20 04:45 MCHC 32.9 g/dL (33.0-35.0) L 10/19/20 04:45 RDW 14.8 % (11.6-16.5) 10/19/20 04:45 Plt Count 237 X10^3/uL (150.0-450.0) 10/19/20 04:45 Plt Count Comment Adequate (ADEQUATE) 10/13/20 14:30 MPV 8.9 fL (7.4-11.0) 10/19/20 04:45 Neut % (Auto) 71.6 % (42.0-75.0) 10/19/20 04:45 Lymph % (Auto) 14.6 % (21.0-51.0) L 10/19/20 04:45 [place] % (Auto) 9.3 % (0.0-13.0) 10/19/20 04:45 Eos % (Auto) 3.7 % (0.9-2.9) H 10/19/20 04:45 Baso % (Auto) 0.8 % (0.2-1.0) 10/19/20 04:45 Neut # (Auto) 7.6 x10^3/uL (2.2-4.8) H 10/19/20 04:45 Lymph # (Auto) 1.6 X10^3/uL (1.3-2.9) 10/19/20 04:45 [place] # (Auto) 1.0 x10^3/uL (0.3-0.8) H 10/19/20 04:45 Eos # (Auto) 0.4 x10^3/uL (0.0-0.2) H 10/19/20 04:45 Baso # (Auto) 0.1 X10^3/uL (0.0-0.1) 10/19/20 04:45 Absolute Nucleated RBC 0.0 /100WBC 10/19/20 04:45 Total Counted 100 10/13/20 14:30 Neutrophils % (Manual) 85 % (39-76) H 10/13/20 14:30 Band Neutrophils % 9 % (0-10) 10/13/20 14:30 Lymphocytes % (Manual) 2 % (13-43) L 10/13/20 14:30 Monocytes % (Manual) 4 % (4-9) 10/13/20 14:30 Plt Morphology Comment Normal (NORMAL) 10/13/20 14:30 RBC Morphology Abnormal (NORMAL) A 10/13/20 14:30 Anisocytosis 1+ A 10/13/20 14:30 D-Dimer 0.59 ug/ml (0.0-0.57) H* 10/13/20 14:30 Sample Site Rbra 10/13/20 14:48 ABG pH 7.450 (7.35-7.45) 10/13/20 14:48 ABG pCO2 48.0 mmHg (35.0-45.0) H 10/13/20 14:48 ABG pO2 88.0 mmHg (80.0-100.0) 10/13/20 14:48 ABG HCO3 33.4 mmol/L (22-26) H* 10/13/20 14:48 ABG O2 Saturation 97.0 % (90-100) 10/13/20 14:48 ABG Base Excess 8.2 mmol/L (-2.0-2.0) H 10/13/20 14:48 Reagan Test Na 10/13/20 14:48 A-a Gradient 52.0 mmHg 10/13/20 14:48 FiO2 28.0 10/13/20 14:48 Blood Gas Comments Pt negro well eb 10/13/20 14:48 Sodium 146 mmol/L (136-145) H 10/19/20 04:45 Corrected Sodium TNP 10/19/20 04:45 Potassium 4.3 mmol/L (3.5-5.1) 10/19/20 04:45 Chloride 110 mmol/L (98-107) H 10/19/20 04:45 Carbon Dioxide 31.7 mmol/L (21-32) 10/19/20 04:45 BUN 4 mg/dL (7-18) L 10/19/20 04:45 Creatinine 0.77 mg/dL (0.55-1.02) 10/19/20 04:45 Est GFR (MDRD) Af Amer > 60 (>60) 10/19/20 04:45 Est GFR (MDRD) Non-Af > 60 (>60) 10/19/20 04:45 Glucose 99 mg/dL (65-99) 10/19/20 04:45 Calcium 8.8 mg/dL (8.5-10.1) 10/19/20 04:45 Corrected Calcium 10.0 mg/dL (8.5-10.1) 10/19/20 04:45 Total Bilirubin 0.20 mg/dL (0.2-1.0) 10/19/20 04:45 AST 11 Units/L (15-37) L 10/19/20 04:45 ALT 18 Units/L (12-78) 10/19/20 04:45 Alkaline Phosphatase 78 Units/L (46-116) 10/19/20 04:45 Total Protein 6.0 g/dL (6.4-8.2) L 10/19/20 04:45 Albumin 2.5 g/dL (3.4-5.0) L 10/19/20 04:45 Globulin 3.5 g/dL (2.5-4.5) 10/19/20 04:45 Albumin/Globulin Ratio 0.7 Ratio (1.1-2.1) L 10/19/20 04:45 Specimen Type Clean catch urine 10/13/20 17:00 Urine Color Straw (YELLOW) 10/13/20 17:00 Urine Appearance Clear (CLEAR) 10/13/20 17:00 Urine pH 7.0 (5.0 - 8.0) 10/13/20 17:00 Ur Specific [place] 1.010 (1.000-1.030) 10/13/20 17:00 Urine Protein 2+ (NEGATIVE) 10/13/20 17:00 Urine Glucose (UA) Negative (NEGATIVE) 10/13/20 17:00 Urine Ketones Negative (NEGATIVE) 10/13/20 17:00 Urine Occult Blood Negative (NEGATIVE) 10/13/20 17:00 Urine Nitrite Negative (NEGATIVE) 10/13/20 17:00 Urine Bilirubin Negative (NEGATIVE) 10/13/20 17:00 Urine Urobilinogen Normal (NORMAL) 10/13/20 17:00 Ur Leukocyte Esterase Negative (NEGATIVE) 10/13/20 17:00 Urine RBC None seen /HPF (0-3) 10/13/20 17:00 Urine WBC None seen /HPF (0-5) 10/13/20 17:00 Ur Squamous Epith Cells Rare /HPF (NEGATIVE) 10/13/20 17:00 Urine Bacteria Negative /HPF (NEGATIVE) 10/13/20 17:00 Ur Culture Indicated? No/not indicated 10/13/20 17:00 Vancomycin Trough 16.3 ug/mL (15-20) 10/17/20 20:15 SARS CoV-2 RNA Rapid GIANFRANCO Negative (NEGATIVE) 10/13/20 16:22 Reason For Visit: PNEUMONIA Discharge Date Discharge Date: 10/19/20 Discharge Diagnosis All Active Problems (Updated 10/17/20 @ 14:25 by Carolina Shah) Bronchiectasis (Acute) Hypernatremia (Acute) Pneumonia (Acute) Atrial fibrillation (Chronic) CVA (cerebral vascular accident) (Chronic) Left-sided weakness (Chronic) Lower back pain (Chronic) Seizures (Chronic) Plan of Treatment: Continue with present treatment and follow up plan. Pt is to keep follow up appointment as instructed and take medications as ordered. Discharge Medications Discharge Medications: Sulfa (Sulfonamide Antibiotics) [SULFA] Allergy (Verified 03/17/20 08:00) CONTINUE taking the following medications Eliquis 5 mg PO BID 10/13/20 [History] New Prescriptions albuterol sulfate 2 puff INHALATION Q4-6H PRN #6.7 g 10/19/20 [Rx] benzonatate [Tessalon Perles] 100 mg PO TID PRN #20 cap 10/19/20 [Rx] levofloxacin 750 mg PO Q24H 5 Days #5 tab 10/19/20 [Rx] ondansetron 4 mg PO Q8H PRN #14 tab 10/19/20 [Rx] Follow up and Referral Follow Up: 1 Week (PCP) Discharge Disposition Discharge Disposition: Home Discharge Condition: Stable Discharge Plan Discharge Plan Hospital Course: Ms. Umanzor is a 69y/o female with a PMH of arthritis, CVA in 2018, Hx of PE, HTN, HLD, GERD, hypothyroidism, anxiety and depression presented with worsening dyspnea. Patient has been on home O2 2L since she had covid pneumonia few months ago. Patient required a prolonged stay in [facility] and then rehab. She stated feeling sick on Monday and felt weak. The next day she had fever, Tmax 101, chills and cough. She also started having pleuritic chest pain and shortness of breath. She has a hx of aspiration pneumonia. Denies sick contact at home. Denies GI Sx. In the ER, her WBC was elevated at 23.3, Hgb 9.7 and elevated d-dimer. ABG showed hypoxia. COVID-19 test was negative. CTA showed no PE but multifocal pneumonia, bilateral upper lobe involvement and emphysema. Patient had severe COVID 19 pneumonia few months ago and was transferred to [facility]. She also has a hx of aspiration pneumonia. Patient was started on IV vancomycin and zosyn. She also received duonebs. She uses 2L home oxygen and remained on the same while admitted. PT/OT and RT were consulted. Patient's cough and dyspnea gradually improved. She remained afebrile. Her WBC count normalized and symptoms improved. Patient already has physical therapy set up as outpatient. Sh e was stable for discharge. She will follow up with PCP in one week. Patient Disposition: 01 HOME, SELF-CARE Condition: Stable Health Concerns: Post Hospitalization: new medications and changes needed to prevent readmission or further decline. Pt educated and given instructions on all concerns. Care Plan Goals: Problem: Respiratory Complications Goal: Improved Uncomplicated Respiratory Status Instructions: Follow provided instructions. Follow up with primary physician as directed. Contact primary care physician or report to the closest Emergency Room if condition worsens. Plan of Treatment: Continue with present treatment and follow up plan. Pt is to keep follow up appointment as instructed and take medications as ordered. Prescription drug monitoring program results: PDMP reviewed and no concerns identified Prescriptions: New benzonatate [Tessalon Perles] 100 mg capsule 100 mg PO TID PRN (Reason: cough) Qty: 20 RF: 0 albuterol sulfate 90 mcg/actuation HFA aerosol inhaler 2 puff inhalation Q4-6H PRN (Reason: shortness of breath or wheezing) Qty: 6.7 RF: 1 ondansetron 4 mg tablet,disintegrating 4 mg PO Q8H PRN (Reason: nausea and vomiting) Qty: 14 RF: 0 levofloxacin 750 mg tablet 750 mg PO Q24H 5 Days Qty: 5 RF: 0 Continued atorvastatin 80 mg tablet 40 mg PO DAILY RF: 0 gabapentin 400 mg capsule 800 mg PO HS RF: 0 desloratadine 5 mg tablet 5 mg PO DAILY RF: 0 levothyroxine 88 mcg tablet 88 mcg PO DAILY RF: 0 ergocalciferol (vitamin D2) 1,250 mcg (50,000 unit) capsule 1,250 mcg PO WEEKLY RF: 0 fluoxetine 20 mg capsule 20 mg PO DAILY RF: 0 famotidine 40 mg tablet 40 mg PO BID RF: 0 Eliquis 5 mg tablet 5 mg PO BID RF: 0 montelukast 10 mg Tablet 10 mg PO DAILY RF: 0 omeprazole 40 mg Capsule,Delayed Release(Dr/Ec) 40 mg PO DAILY RF: 0 baclofen 10 mg Tablet 10 mg PO HS RF: 0 ropinirole 0.5 mg tablet 2 mg PO HS RF: 0 levetiracetam 500 mg tablet 500 mg PO BID RF: 0 Follow ups/Referrals Follow ups/Referrals: ARUN PEREIRA [Primary Care Provider] - 10/27/20 1:30 pm Instructions Instructions: Chronic Obstructive Pulmonary Disease, [id number], Atrial Fibrillation, [id number], Community-Acquired Pneumonia, Adult, [id number] Stand Alone Forms: Excuse From Work or School, Precautions for COVID19, Patient Portal, Social Distancing
[2020-10-19 13:40] VITALS: BP 145/67
== END 2020-10-19 14:00 | disposition home or self-care (01) | DRG 194 ==
LOC: ER 12:55 → MED/SURG 16:27
PROVIDERS: ADMIT Family Medicine; ATTEND Family Medicine
DX: Z86.16 Personal history of COVID-19; I48.91 Unspecified atrial fibrillation; Z20.822 Contact with and (suspected) exposure to COVID-19; D64.89 Other specified anemias; Z86.73 Personal history of transient ischemic attack (TIA), and cerebral infarction without residual deficits; K21.9 Gastro-esophageal reflux disease without esophagitis; J18.8 Other pneumonia, unspecified organism; E03.8 Other specified hypothyroidism; E87.0 Hyperosmolality and hypernatremia; Z99.81 Dependence on supplemental oxygen; R06.03 Acute respiratory distress; Z86.711 Personal history of pulmonary embolism; R26.89 Other abnormalities of gait and mobility; R53.1 Weakness

== ENCOUNTER 2021-05-05 03:09 | Inpatient (IN) ==
[2021-05-05 03:30] VITALS: BMI 23.3
--- NOTE | 2021-05-05 03:35 | DR.FEVERAD ---
HPI Time seen Time Seen by Provider: 05/05/21 03:17 HPI Comment HPI Comment: Brought in by ems after waking from sleep sick to her stomach and throwing up x 1; confused per the family who felt she may have aspirated and called ems; she is able to answer some questions but falls asleep in mist of others; took neurontin tonight after being off it for two days; felt fine when she went to bed; unable to get any more information PMH PMH Past Medical History: Anxiety, Arthritis, CVA, Depression, Hypertension, Hypothyroidism and Seizures Past Surgical History: Yes Surgical History: Appendectomy, Hysterectomy and Ortho Surgery Family History Family Medical History: Cancer Social History Do you use any recreational Drugs:: No ROS Review of Systems Eyes: No Symptoms Reported ENTM: No Symptoms Reported Respiratoy: No Symptoms Reported Cardiovascular: No Symptoms Reported Genitourinary: No Symptoms Reported Musculoskeletal: No Symptoms Reported Integumentary: No Symptoms Reported Hematologic/Lymphatic: No Symptoms Reported Endocrine: No Symptoms Reported Psychiatric: No Symptoms Reported PE Vital Signs Vitals: Temperature 103 F Pulse Rate 111 Respiratory Rate 22 Blood Pressure [Right Arm] 145/67 Blood Pressure [Left Arm] 121/67 Blood Pressure 117/61 O2 Sat by Pulse Oximetry 97 General Limitations: Other (somnolent, drifts off during hx) General Appearance: Lethargic and Other (vomit on housecoat) Head Head Exam: Normal Inspection, Atraumatic and Normocephalic Eyes Eye exam: Normal Appearance ENT ENT Exam: Normal Exam Neck Neck Exam: Normal Inspection Respiratory Respiratory Exam: Normal Lung Sounds Bilat Cardiovascular Cardiovascular Exam: Regular Rate and Normal Rhythm Abdominal Exam Abdominal Exam: Normal Inspection, Normal Bowel Sounds and Soft Extremities Extremities Exam: Normal Inspection Back Back Exam: Normal Inspection Neurologic Neurological Exam: Alert and Oriented X3 Psychiatric Psychiatric Exam: Normal Affect and Normal Mood Skin Skin Exam: Warm, Dry, Intact and Normal Color COURSE Critical Care Notes Total Time (mins): 30 Critical Diagnosis: sepsis, aspiration pneu, rll/rul pneu, altered mental status Critical Interventions: fluids, abx, review of labs, rule out cva, coordination of admissions with Dr Joaquina RICK Labs Reviewed Laboratory Results Reviewed?: Yes Result Diagrams: 05/05/21 03:46 05/05/21 03:46 Laboratory: WBC 19.3 X10^3/uL (3.6-10.0) H 05/05/21 03:46 RBC 4.24 X10^6/uL (3.5-5.4) 05/05/21 03:46 Hgb 11.5 g/dL (12.0-16.0) L 05/05/21 03:46 Hct 36.0 % (36.0-47.0) 05/05/21 03:46 MCV 85.1 fL (80.0-100.0) 05/05/21 03:46 MCH 27.1 pg (27.0-34.0) 05/05/21 03:46 MCHC 31.9 g/dL (33.0-35.0) L 05/05/21 03:46 RDW 15.8 % (11.6-16.5) 05/05/21 03:46 Plt Count 296 X10^3/uL (150.0-450.0) 05/05/21 03:46 Plt Count Comment Adequate (ADEQUATE) 05/05/21 03:46 MPV 8.7 fL (7.4-11.0) 05/05/21 03:46 Neut % (Auto) 90.6 % (42.0-75.0) H 05/05/21 03:46 Lymph % (Auto) 3.5 % (21.0-51.0) L 05/05/21 03:46 [place] % (Auto) 5.4 % (0.0-13.0) 05/05/21 03:46 Eos % (Auto) 0.1 % (0.9-2.9) L 05/05/21 03:46 Baso % (Auto) 0.4 % (0.2-1.0) 05/05/21 03:46 Neut # (Auto) 17.5 x10^3/uL (2.2-4.8) H 05/05/21 03:46 Lymph # (Auto) 0.7 X10^3/uL (1.3-2.9) L 05/05/21 03:46 [place] # (Auto) 1.1 x10^3/uL (0.3-0.8) H 05/05/21 03:46 Eos # (Auto) 0.0 x10^3/uL (0.0-0.2) 05/05/21 03:46 Baso # (Auto) 0.1 X10^3/uL (0.0-0.1) 05/05/21 03:46 Absolute Nucleated RBC 0.1 /100WBC 05/05/21 03:46 Total Counted 100 05/05/21 03:46 Neutrophils % (Manual) 99 % (39-76) H 05/05/21 03:46 Lymphocytes % (Manual) 1 % (13-43) L 05/05/21 03:46 Plt Morphology Comment Normal (NORMAL) 05/05/21 03:46 RBC Morphology Normal (NORMAL) 05/05/21 03:46 Sodium 146 mmol/L (136-145) H 05/05/21 03:46 Corrected Sodium 147 mmol/L (136-145) H 05/05/21 03:46 Potassium 4.4 mmol/L (3.5-5.1) 05/05/21 03:46 Chloride 106 mmol/L (98-107) 05/05/21 03:46 Carbon Dioxide 29.1 mmol/L (21-32) 05/05/21 03:46 BUN 10 mg/dL (7-18) 05/05/21 03:46 Creatinine 0.77 mg/dL (0.55-1.02) 05/05/21 03:46 Est GFR (MDRD) Af Amer > 60 (>60) 05/05/21 03:46 Est GFR (MDRD) Non-Af > 60 (>60) 05/05/21 03:46 Glucose 128 mg/dL (65-99) H 05/05/21 03:46 Lactic Acid 1.7 mmol/L (0.4-2.0) 05/05/21 04:52 Calcium 8.6 mg/dL (8.5-10.1) 05/05/21 03:46 Corrected Calcium 9.2 mg/dL (8.5-10.1) 05/05/21 03:46 Total Bilirubin 0.30 mg/dL (0.2-1.0) 05/05/21 03:46 AST 26 Units/L (15-37) 05/05/21 03:46 ALT 25 Units/L (12-78) 05/05/21 03:46 Alkaline Phosphatase 102 Units/L (46-116) 05/05/21 03:46 Total Protein 6.9 g/dL (6.4-8.2) 05/05/21 03:46 Albumin 3.2 g/dL (3.4-5.0) L 05/05/21 03:46 Globulin 3.7 g/dL (2.5-4.5) 05/05/21 03:46 Albumin/Globulin Ratio 0.9 Ratio (1.1-2.1) L 05/05/21 03:46 Specimen Type Random urine 05/05/21 04:11 Urine Color Yellow (YELLOW) 05/05/21 04:11 Urine Appearance Clear (CLEAR) 05/05/21 04:11 Urine pH 6.0 (5.0 - 8.0) 05/05/21 04:11 Ur Specific [place] 1.015 (1.000-1.030) 05/05/21 04:11 Urine Protein 2+ (NEGATIVE) 05/05/21 04:11 Urine Glucose (UA) Negative (NEGATIVE) 05/05/21 04:11 Urine Ketones Negative (NEGATIVE) 05/05/21 04:11 Urine Occult Blood Negative (NEGATIVE) 05/05/21 04:11 Urine Nitrite Negative (NEGATIVE) 05/05/21 04:11 Urine Bilirubin Negative (NEGATIVE) 05/05/21 04:11 Urine Urobilinogen Normal (NORMAL) 05/05/21 04:11 Ur Leukocyte Esterase 2+ (NEGATIVE) 05/05/21 04:11 Urine RBC None seen /HPF (0-3) 05/05/21 04:11 Urine WBC 3-5 /HPF (0-5) 05/05/21 04:11 Ur Squamous Epith Cells Few /HPF (NEGATIVE) 05/05/21 04:11 Urine Bacteria Trace /HPF (NEGATIVE) 05/05/21 04:11 Hyaline Casts Few /LPF (NEGATIVE) 05/05/21 04:11 Ur Culture Indicated? No/not indicated 05/05/21 04:11 Urine Opiates Screen Negative (NEG=<300) 05/05/21 04:11 Urine Methadone Screen Negative (NEG=<300) 05/05/21 04:11 Ur Barbiturates Screen Negative (NEG=<200) 05/05/21 04:11 Ur Phencyclidine Scrn Negative (NEG=<25) 05/05/21 04:11 Ur Amphetamines Screen Negative (NEG=<1000) 05/05/21 04:11 U Benzodiazepines Scrn Negative (NEG=<200) 05/05/21 04:11 Urine Cocaine Screen Negative (NEG=<300) 05/05/21 04:11 U Marijuana (THC) Screen Negative (NEG=<50) 05/05/21 04:11 SARS-CoV-2 (PCR) Negative (NEGATIVE) 05/05/21 03:26 Influenza Type A (PCR) Negative (NEGATIVE) 05/05/21 03:26 Influenza Type B (PCR) Negative (NEGATIVE) 05/05/21 03:26 RSV (PCR) Negative (NEGATIVE) 05/05/21 03:26 XRAY XRAY Interpreted by: Radiologist X-ray Results: ct head: Mild cortical atrophy with microvascular ischemic white matter changes. Stable chronic lacunar infarcts involving the posterior limb right internal capsule and left caudate. No acute intracranial pathology. pcxr: Patchy right upper and right lower lung infiltrates.. Opioid Opioid Risk Tool Age (Marquez box if 16-45): No History of Preadolescent Sexual Abuse: No Total: 0 Total Score Risk Category: Low Risk Copyright: Isaac MICHAEL predicting aberrant behaviors Diagnosis Discharge Problem: Aspiration pneumonia Qualifiers: Aspiration pneumonia type: due to regurgitated food Laterality: bilateral Lung location: lower lobe of lung Qualified Code(s): J69.0 - Pneumonitis due to inhalation of food and vomit Sepsis Qualifiers: Sepsis type: sepsis due to unspecified organism Sepsis acute organ dysfunction status: with acute organ dysfunction Severe sepsis acute organ dysfunction type: encephalopathy Severe sepsis shock status: without septic shock Qualified Code(s): A41.9 - Sepsis, unspecified organism Bronchiectasis Qualifiers: Bronchiectasis type: with acute lower respiratory infection Qualified Code(s): J47.0 - Bronchiectasis with acute lower respiratory infection Instructions Forms: Precautions for COVID19 [facility] Patient Portal Social Distancing
[2021-05-05 03:55] LABS: BASOPHILS # (AUTO) 0.1 X10^3/uL (0.0-0.1); BASOPHILS % (AUTO) 0.4 % (0.2-1.0); EOSINOPHILS % (AUTO) 0.1 % (0.9-2.9); HEMOGLOBIN 11.5 g/dL (12.0-16.0); LYMPHOCYTES # (AUTO) 0.7 X10^3/uL (1.3-2.9); LYMPHOCYTES % (AUTO) 3.5 % (21.0-51.0); MEAN CORPUSCULAR HEMOGLOBIN 27.1 pg (27.0-34.0); MEAN CORPUSCULAR HGB CONC 31.9 g/dL (33.0-35.0); MEAN CORPUSCULAR VOLUME 85.1 fL (80.0-100.0); MEAN PLATELET VOLUME 8.7 fL (7.4-11.0); MONOCYTES # (AUTO) 1.1 x10^3/uL (0.3-0.8); MONOCYTES % (AUTO) 5.4 % (0.0-13.0); NEUTROPHILS # (AUTO) 17.5 x10^3/uL (2.2-4.8); NEUTROPHILS % (AUTO) 90.6 % (42.0-75.0); PLATELET COUNT 296 X10^3/uL (150.0-450.0); RED BLOOD COUNT 4.24 X10^6/uL (3.5-5.4); RED CELL DISTRIBUTION WIDTH 15.8 % (11.6-16.5); WHITE BLOOD COUNT 19.3 X10^3/uL (3.6-10.0)
[2021-05-05 04:05] LABS: ALANINE AMINOTRANSFERASE 25 Units/L (12-78); ALBUMIN 3.2 g/dL (3.4-5.0); ALKALINE PHOSPHATASE 102 Units/L (46-116); ASPARTATE AMINO TRANSFERASE 26 Units/L (15-37); BLOOD UREA NITROGEN 10 mg/dL (7-18); CALCIUM 8.6 mg/dL (8.5-10.1); CARBON DIOXIDE 29.1 mmol/L (21-32); CHLORIDE 106 mmol/L (98-107); COR CA(FOR HYPOALB) 9.2 mg/dL (8.5-10.1); COR NA(FOR HYPERGLY) 147 mmol/L (136-145); CREATININE 0.77 mg/dL (0.55-1.02); SODIUM 146 mmol/L (136-145); TOTAL PROTEIN 6.9 g/dL (6.4-8.2); eGFR NON BLACK RACES > 60 (>60)
--- NOTE | 2021-05-05 04:19 | CT ---
History: AMS PMH: HTN, SEIZURES, CVA, RLS, GASTROPARESIS, EMPHYSEMA PSH: APPENDIX, HYST, ORTHOExam :BRAIN W/O CONTechnique: Thin section axial ct images of the brain were obtained from the foramen magnum to the vertex without contrast. Sagittal and coronal reconstructions were also performed.Comparison: 03/17/2020Findings:The ventricles are within normal limits in size. No midline shift, mass effect or extra-axial fluid collections. No evidence of acute hemorrhage or acute macroinfarction. Mild cortical atrophy compatible with patient's age. Decreased attenuation in the periventricular and subcortical white matter consistent with microvascular ischemic white matter changes. Stable chronic lacunar infarcts involving the posterior limb right internal capsule and left caudate.The visualized paranasal sinuses and mastoids are unremarkable. The calvarium is intact.Impression:Mild cortical atrophy with microvascular ischemic white matter changes.Stable chronic lacunar infarcts involving the posterior limb right internal capsule and left caudate.No acute intracranial pathology.Electronically signed by: Shon Duque (May 05, 2021 04:17:33)
[2021-05-05] MEDS ORDERED: NS 1,000 ML IV 1,000 ML IV ONE (04:30)
[2021-05-05 04:33] LABS: BILIRUBIN,URINE NEGATIVE (NEGATIVE); BLOOD/HEMOGLOBIN,URINE NEGATIVE (NEGATIVE); GLUCOSE, URINE NEGATIVE (NEGATIVE); KETONES,URINE NEGATIVE (NEGATIVE); LEUKOCYTE ESTERASE ,URINE 2+ (NEGATIVE); NITRITES,URINE NEGATIVE (NEGATIVE); PROTEIN,URINE 2+ (NEGATIVE); UROBILINOGEN,URINE NORMAL (NORMAL)
[2021-05-05] MEDS ORDERED: NS 1,000 ML IV 1,000 ML ONE ×2 (04:36→09:17)
[2021-05-05] MEDS ORDERED: OFIRMEV IV 1000 MG VIAL 1,000 MG/100 ML VIAL IV ONE ×2 (04:58→04:59)
--- NOTE | 2021-05-05 05:05 | RAD ---
HISTORYFEVER PMH: HTN, SEIZURES, CVA, RLS, GASTROPARESIS, EMPHYSEMA PSH: APPENDIX, HYST, ORTHOSTUDYCHEST, 1 [id number]/2021FINDINGSThe trachea is midline. The cardiac silhouette is unremarkable. Patchy right upper and right basilar infiltrates. The left lung is clear.. The bony thorax is unremarkable.IMPRESSIONPatchy right upper and right lower lung infiltrates..Electronically signed by: Shon Duque (May 05, 2021 05:04:03)
[2021-05-05 05:08] LABS: APPEARANCE,URINE CLEAR (CLEAR); COLOR,URINE YELLOW (YELLOW)
[2021-05-05 05:09] LABS: BACTERIA,URINE TRACE /HPF (NEGATIVE); HYALINE CASTS, URINE FEW /LPF (NEGATIVE); RBC,URINE NONE SEEN /HPF (0-3); SQUAMOUS EPITHELIAL CELL,UR FEW /HPF (NEGATIVE)
[2021-05-05] MEDS ORDERED: ZOSYN VIAL 3.375 GRAMS 3.375 G in NS 100 ML IV + SPIKE MINIBAG* 100 ML IV ONE ×2 (05:28→06:42)
[2021-05-05 05:31] LABS: PLATELET MORPHOLOGY COMMENT NORMAL (NORMAL)
[2021-05-05] MEDS ORDERED: ZOSYN VIAL 3.375 GRAMS IV ONE (05:40)
[2021-05-05] MEDS ORDERED: NS 100 ML IV + SPIKE MINIBAG* 100 ML IV ONE (05:41)
[2021-05-05] MEDS ORDERED: CONSULT PHARMACY - ANTIBIOTIC XX SCH (07:00)
[2021-05-05] MEDS: NS 1,000 ML IV 1,000 ML IV SCH ×4 (09:46→21:59)
[2021-05-05] MEDS ORDERED: PROTONIX TAB 40 MG PO ONE (11:14)
[2021-05-05] MEDS ORDERED: TYLENOL 500 MG TAB EXTRA STRENGTH PO ONE (11:14)
[2021-05-05] MEDS ORDERED: ELIQUIS ONE (11:14)
[2021-05-05] MEDS ORDERED: KEPPRA TAB 500 MG ONE (11:15)
[2021-05-05] MEDS: KEPPRA TAB 500 MG PO SCH ×2 (11:16→21:57)
[2021-05-05] MEDS: ELIQUIS PO SCH ×2 (11:16→21:57)
[2021-05-05] MEDS: PROTONIX TAB 40 MG PO SCH (11:17)
[2021-05-05] MEDS: TYLENOL 500 MG TAB EXTRA STRENGTH PO PRN (11:17)
--- NOTE | 2021-05-05 13:33 | DR.H&P ---
H&P History & Physical for Day of: H&P Date: 05/05/21 Chief Complaint Chief Complaint: vomiting, AMS Allergies Allergies Allergy/AdvReac Type Severity Reaction Status Date / Time Sulfa (Sulfonamide Allergy Verified 05/05/21 07:42 Antibiotics) [SULFA] History of Present Illness History of Present Illness: Ms. Umanzor is a 70y/o female with a PMH of recurrent pneumonia, aspiration, CVA, HTN, arthritis, seizures and GERD presented with vomiting and confusion. Patient has been having work up for GERD, esophageal spasms, intractable vomiting for the past few days. She had a botox treatment in September and February. She recently started seeing a surgeon in [place] and had a few tests done since Monday. She had a barium swallow done yesterday and, on her y, back from [facility], she was feeling sick. She ate a little bit and went to bed early due to being tired. Daughter noticed patient vomiting in the middle of the night and had to call EMS. Patient is awake and alert right now. She has not had any vomiting this morning. She has had 2 covid tests over the last 3 days prior to each procedure and were negative. She denies fever or chills, no nausea or diarrhea. Denies abdominal pain. ER work up - CXR concerning for right sided pneumonia - Labs reviewed Patient was kept NPO, started on IV Zosyn and fluids. Patient is on 2L NC, uses 2-3 L at home. Plan: continue IV zosyn and hydration. Add zofran prn. Speech consulted but won't see her till tomorrow. Nurse did bedside swallow with water and patient was able to keep it down with no signs of aspiration. She was able to take her PO medications. Will start clears and re-assess. Monitor AM labs/imaging. Past Medical History Past Medical History: Anxiety, Arthritis, CVA, Depression, Hypertension, Hypothyroidism and Seizures Additional Medical History: PE Past Surgical History Surgical History: Appendectomy, Hysterectomy and Ortho Surgery Family History Family Medical History: Cancer Social History Does patient currently use any type of tobacco product: No (2017 PT STOPPED SMOKING) Have you used tobacco products in the last 12 months: No Type of Tobacco Use: None How many years tobacco product used: 30 Does any household member use tobacco: No Alcohol Use: None Drug Use: None Prescription drug monitoring program results: PDMP reviewed and no concerns identified Medications Home Medications: Sulfa (Sulfonamide Antibiotics) [SULFA] Allergy (Verified 05/05/21 07:42) CONTINUE taking the following medications desloratadine 5 mg PO DAILY 05/05/21 [History] pantoprazole 40 mg PO DAILY 05/05/21 [History] Labs Result Diagrams: 05/05/21 03:46 05/05/21 03:46 Labs: Laboratory WBC 19.3 X10^3/uL (3.6-10.0) H 05/05/21 03:46 RBC 4.24 X10^6/uL (3.5-5.4) 05/05/21 03:46 Hgb 11.5 g/dL (12.0-16.0) L 05/05/21 03:46 Hct 36.0 % (36.0-47.0) 05/05/21 03:46 MCV 85.1 fL (80.0-100.0) 05/05/21 03:46 MCH 27.1 pg (27.0-34.0) 05/05/21 03:46 MCHC 31.9 g/dL (33.0-35.0) L 05/05/21 03:46 RDW 15.8 % (11.6-16.5) 05/05/21 03:46 Plt Count 296 X10^3/uL (150.0-450.0) 05/05/21 03:46 Plt Count Comment Adequate (ADEQUATE) 05/05/21 03:46 MPV 8.7 fL (7.4-11.0) 05/05/21 03:46 Neut % (Auto) 90.6 % (42.0-75.0) H 05/05/21 03:46 Lymph % (Auto) 3.5 % (21.0-51.0) L 05/05/21 03:46 [place] % (Auto) 5.4 % (0.0-13.0) 05/05/21 03:46 Eos % (Auto) 0.1 % (0.9-2.9) L 05/05/21 03:46 Baso % (Auto) 0.4 % (0.2-1.0) 05/05/21 03:46 Neut # (Auto) 17.5 x10^3/uL (2.2-4.8) H 05/05/21 03:46 Lymph # (Auto) 0.7 X10^3/uL (1.3-2.9) L 05/05/21 03:46 [place] # (Auto) 1.1 x10^3/uL (0.3-0.8) H 05/05/21 03:46 Eos # (Auto) 0.0 x10^3/uL (0.0-0.2) 05/05/21 03:46 Baso # (Auto) 0.1 X10^3/uL (0.0-0.1) 05/05/21 03:46 Absolute Nucleated RBC 0.1 /100WBC 05/05/21 03:46 Total Counted 100 05/05/21 03:46 Neutrophils % (Manual) 99 % (39-76) H 05/05/21 03:46 Lymphocytes % (Manual) 1 % (13-43) L 05/05/21 03:46 Plt Morphology Comment Normal (NORMAL) 05/05/21 03:46 RBC Morphology Normal (NORMAL) 05/05/21 03:46 Sodium 146 mmol/L (136-145) H 05/05/21 03:46 Corrected Sodium 147 mmol/L (136-145) H 05/05/21 03:46 Potassium 4.4 mmol/L (3.5-5.1) 05/05/21 03:46 Chloride 106 mmol/L (98-107) 05/05/21 03:46 Carbon Dioxide 29.1 mmol/L (21-32) 05/05/21 03:46 BUN 10 mg/dL (7-18) 05/05/21 03:46 Creatinine 0.77 mg/dL (0.55-1.02) 05/05/21 03:46 Est GFR (MDRD) Af Amer > 60 (>60) 05/05/21 03:46 Est GFR (MDRD) Non-Af > 60 (>60) 05/05/21 03:46 Glucose 128 mg/dL (65-99) H 05/05/21 03:46 Lactic Acid 1.7 mmol/L (0.4-2.0) 05/05/21 04:52 Calcium 8.6 mg/dL (8.5-10.1) 05/05/21 03:46 Corrected Calcium 9.2 mg/dL (8.5-10.1) 05/05/21 03:46 Total Bilirubin 0.30 mg/dL (0.2-1.0) 05/05/21 03:46 AST 26 Units/L (15-37) 05/05/21 03:46 ALT 25 Units/L (12-78) 05/05/21 03:46 Alkaline Phosphatase 102 Units/L (46-116) 05/05/21 03:46 Total Protein 6.9 g/dL (6.4-8.2) 05/05/21 03:46 Albumin 3.2 g/dL (3.4-5.0) L 05/05/21 03:46 Globulin 3.7 g/dL (2.5-4.5) 05/05/21 03:46 Albumin/Globulin Ratio 0.9 Ratio (1.1-2.1) L 05/05/21 03:46 Specimen Type Random urine 05/05/21 04:11 Urine Color Yellow (YELLOW) 05/05/21 04:11 Urine Appearance Clear (CLEAR) 05/05/21 04:11 Urine pH 6.0 (5.0 - 8.0) 05/05/21 04:11 Ur Specific [place] 1.015 (1.000-1.030) 05/05/21 04:11 Urine Protein 2+ (NEGATIVE) 05/05/21 04:11 Urine Glucose (UA) Negative (NEGATIVE) 05/05/21 04:11 Urine Ketones Negative (NEGATIVE) 05/05/21 04:11 Urine Occult Blood Negative (NEGATIVE) 05/05/21 04:11 Urine Nitrite Negative (NEGATIVE) 05/05/21 04:11 Urine Bilirubin Negative (NEGATIVE) 05/05/21 04:11 Urine Urobilinogen Normal (NORMAL) 05/05/21 04:11 Ur Leukocyte Esterase 2+ (NEGATIVE) 05/05/21 04:11 Urine RBC None seen /HPF (0-3) 05/05/21 04:11 Urine WBC 3-5 /HPF (0-5) 05/05/21 04:11 Ur Squamous Epith Cells Few /HPF (NEGATIVE) 05/05/21 04:11 Urine Bacteria Trace /HPF (NEGATIVE) 05/05/21 04:11 Hyaline Casts Few /LPF (NEGATIVE) 05/05/21 04:11 Ur Culture Indicated? No/not indicated 05/05/21 04:11 Urine Opiates Screen Negative (NEG=<300) 05/05/21 04:11 Urine Methadone Screen Negative (NEG=<300) 05/05/21 04:11 Ur Barbiturates Screen Negative (NEG=<200) 05/05/21 04:11 Ur Phencyclidine Scrn Negative (NEG=<25) 05/05/21 04:11 Ur Amphetamines Screen Negative (NEG=<1000) 05/05/21 04:11 U Benzodiazepines Scrn Negative (NEG=<200) 05/05/21 04:11 Urine Cocaine Screen Negative (NEG=<300) 05/05/21 04:11 U Marijuana (THC) Screen Negative (NEG=<50) 05/05/21 04:11 SARS-CoV-2 (PCR) Negative (NEGATIVE) 05/05/21 03:26 Influenza Type A (PCR) Negative (NEGATIVE) 05/05/21 03:26 Influenza Type B (PCR) Negative (NEGATIVE) 05/05/21 03:26 RSV (PCR) Negative (NEGATIVE) 05/05/21 03:26 Review of Systems Constitutional: No Symptoms Reported Eyes: No Symptoms Reported ENT: No Symptoms Reported Respiratory: Cough and Shortness of Breath Cardiovascular: No Symptoms Reported Gastrointestinal: Vomiting Genitourinary: No Symptoms Reported Musculoskeletal: Back Pain and Leg Pain Skin: No Symptoms Reported Neurological: Confusion Physical Exam Vital Signs: Temperature 98.3 F Pulse Rate 88 Respiratory Rate 22 Blood Pressure [Right Arm] 145/67 Blood Pressure [Left Arm] 121/67 Blood Pressure 95/54 O2 Sat by Pulse Oximetry 82 Oriented: Normal Eyes: Normal Ear: Normal Nose: Normal Throat: Normal Respiratory: RUL Diminished, RLL Diminished and RLL Rhonchi Cardiovascular: Normal Auscultation: Bowel Sounds: Normal Palpation: Normal Tenderness: Normal Skin: Decreased [place]urgur Musculoskeletal: Normal Psychiatric: Normal Mood Description: Calm Affect: Normal Speech Pattern: Clear and Appropriate Assessment/Plan (1) Intractable vomiting: Status: Acute (2) Aspiration pneumonia: Qualifiers: Aspiration pneumonia type: due to regurgitated food Laterality: bilateral Lung location: lower lobe of lung Qualified Code(s): J69.0 - Pneumonitis due to inhalation of food and vomit Status: Acute (3) Sepsis: Qualifiers: Sepsis acute organ dysfunction status: with acute organ dysfunction Sepsis type: sepsis due to unspecified organism Severe sepsis acute organ dysfunction type: encephalopathy Severe sepsis shock status: without septic shock Qualified Code(s): A41.9 - Sepsis, unspecified organism; R65.20 - Severe sepsis without septic shock; G93.40 - Encephalopathy, unspecified Status: Acute (4) Atrial fibrillation: Qualifiers: Atrial fibrillation type: unspecified Qualified Code(s): I48.91 - Unspecified atrial fibrillation Status: Chronic (5) CVA (cerebral vascular accident): Qualifiers: CVA mechanism: unspecified Qualified Code(s): I63.9 - Cerebral infarction, unspecified Status: Chronic (6) Seizures: Status: Chronic (7) Lower back pain: Qualifiers: Back pain laterality: bilateral Chronicity: acute Sciatica presence: without sciatica Qualified Code(s): M54.5 - Low back pain Status: Chronic Review H&P Reviewed: Yes Patient was examined?: Yes
[2021-05-05] MEDS: ZOSYN VIAL 3.375 GRAMS 3.375 G in NS 100 ML IV + SPIKE MINIBAG* 100 ML IV SCH ×2 (14:13→21:58)
[2021-05-05] MEDS: XOPENEX 1.25 MG/3 ML NEBULE NEB SCH ×2 (18:00→23:58)
[2021-05-05] MEDS: ZOFRAN INJ 4 MG VIAL IVP PRN (18:44)
[2021-05-05] MEDS: REQUIP PO SCH ×2 (18:44→21:44)
[2021-05-05] MEDS ORDERED: PULMICORT NEB TX 0.5 MG NEB ONE (19:39)
[2021-05-05] MEDS: PULMICORT NEB TX 0.5 MG NEB SCH (20:34)
[2021-05-05] MEDS ORDERED: LIPITOR TAB 80 MG PO SCH (21:00)
[2021-05-05] MEDS: PROzac PO SCH (21:58)
[2021-05-05] MEDS: LIPITOR TAB 40 MG PO SCH (21:58)
[2021-05-06] MEDS: NS 1,000 ML IV 1,000 ML IV SCH ×3 (03:34→15:18)
[2021-05-06] MEDS: XOPENEX 1.25 MG/3 ML NEBULE NEB SCH ×3 (05:34→17:13)
[2021-05-06] MEDS: ZOSYN VIAL 3.375 GRAMS 3.375 G in NS 100 ML IV + SPIKE MINIBAG* 100 ML IV SCH ×3 (06:05→22:20)
[2021-05-06 06:15] LABS: BASOPHILS # (AUTO) 0.1 X10^3/uL (0.0-0.1); BASOPHILS % (AUTO) 0.2 % (0.2-1.0); HEMATOCRIT 26.1 % (36.0-47.0); HEMOGLOBIN 8.3 g/dL (12.0-16.0); LYMPHOCYTES # (AUTO) 1.4 X10^3/uL (1.3-2.9); LYMPHOCYTES % (AUTO) 5.9 % (21.0-51.0); MEAN CORPUSCULAR HEMOGLOBIN 27.3 pg (27.0-34.0); MEAN CORPUSCULAR VOLUME 85.5 fL (80.0-100.0); MEAN PLATELET VOLUME 9.3 fL (7.4-11.0); MONOCYTES # (AUTO) 1.1 x10^3/uL (0.3-0.8); MONOCYTES % (AUTO) 4.3 % (0.0-13.0); NEUTROPHILS # (AUTO) 21.9 x10^3/uL (2.2-4.8); NEUTROPHILS % (AUTO) 89.6 % (42.0-75.0); PLATELET COUNT 211 X10^3/uL (150.0-450.0); RED BLOOD COUNT 3.05 X10^6/uL (3.5-5.4); RED CELL DISTRIBUTION WIDTH 15.8 % (11.6-16.5); WHITE BLOOD COUNT 24.4 X10^3/uL (3.6-10.0)
[2021-05-06 06:50] LABS: ALANINE AMINOTRANSFERASE 18 Units/L (12-78); ALBUMIN 2.1 g/dL (3.4-5.0); ALKALINE PHOSPHATASE 74 Units/L (46-116); ASPARTATE AMINO TRANSFERASE 15 Units/L (15-37); BLOOD UREA NITROGEN 8 mg/dL (7-18); CALCIUM 8.2 mg/dL (8.5-10.1); CARBON DIOXIDE 25.5 mmol/L (21-32); CHLORIDE 109 mmol/L (98-107); COR CA(FOR HYPOALB) 9.7 mg/dL (8.5-10.1); CREATININE 0.53 mg/dL (0.55-1.02); SODIUM 142 mmol/L (136-145); TOTAL PROTEIN 5.1 g/dL (6.4-8.2); eGFR NON BLACK RACES > 60 (>60)
[2021-05-06 07:44] LABS: BAND NEUTROPHILS % 4 % (0-10); PLATELET MORPHOLOGY COMMENT NORMAL (NORMAL)
[2021-05-06] MEDS: PROTONIX TAB 40 MG PO SCH (08:54)
[2021-05-06] MEDS: PROzac PO SCH (08:54)
[2021-05-06] MEDS: SYNTHROID 75 mcg TAB PO SCH (08:54)
[2021-05-06] MEDS: KEPPRA TAB 500 MG PO SCH ×2 (08:55→21:00)
[2021-05-06] MEDS: ELIQUIS PO SCH ×2 (08:55→21:00)
[2021-05-06] MEDS: PULMICORT NEB TX 0.5 MG NEB SCH ×2 (09:20→20:43)
[2021-05-06] MEDS: ZOFRAN INJ 4 MG VIAL IVP PRN ×2 (10:29→19:31)
[2021-05-06] MEDS ORDERED: PHARMACY CONSULT - VANCOMYCIN XX SCH (11:00)
[2021-05-06] MEDS: VANCOMYCIN IV *PREMIX 1 G/200 ML BAG 1 G/200 ML PIGGYBACK IV SCH ×2 (12:00→21:01)
[2021-05-06] MEDS: REQUIP PO SCH ×2 (12:00→21:00)
--- NOTE | 2021-05-06 16:35 | PCM.PROG ---
Progress Note Progress Note for Day of Date of Exam: 05/06/21 Subjective Subjective: Patient seen at bedside, no events overnight. She has been afebrile. She reports productive cough. She has been tolerating clears. Denies vomiting or choking on food. Labs reviewed Plan: continue IV Zosyn, will add Vancomycin due to elevated WBC. Speech consult pending. Continue nebs and IS. Advance diet to full liquids. Continue home medications. PT/OT as tolerated. Monitor AM labs/imaging. Past Medical Family Social History Past Med/Fam/Surg Hx: No changes since H&P Allergies: Allergies Sulfa (Sulfonamide Antibiotics) [SULFA] Allergy (Verified 05/05/21 07:42) Review of Systems ROS: No change since H&P Vital Signs and I&O's Vital Signs: Temperature 98.9 F Pulse Rate [Left Brachial] 92 Pulse Rate 78 Respiratory Rate 20 Blood Pressure [Right Arm] 145/67 Blood Pressure [Left Arm] 124/62 Blood Pressure 95/54 O2 Sat by Pulse Oximetry 93 Intake and Output: Intake & Output 05/03/21 05/04/21 05/05/21 05/06/21 23:59 23:59 23:59 23:59 Intake Total 1651 / 1651 1740 / 1740 Balance 1651 / 1651 1740 / 1740 Physical Exam Oriented: Normal Eyes: Normal Ear: Normal Nose: Normal Throat: Normal Respiratory: Right, Generalized and Diminished Cardiovascular: Normal Auscultation: Bowel Sounds: Normal Tenderness: Normal Skin: Decreased [place]urgur Musculoskeletal: Normal Psychiatric: Normal Mood Description: Calm Affect: Normal Speech Pattern: Clear Laboratory and Diagnostics Result Diagrams: 05/07/21 05:46 05/07/21 05:46 Labs: Laboratory WBC 24.4 X10^3/uL (3.6-10.0) H 05/06/21 05:15 RBC 3.05 X10^6/uL (3.5-5.4) L 05/06/21 05:15 Hgb 8.3 g/dL (12.0-16.0) L D 05/06/21 05:15 Hct 26.1 % (36.0-47.0) L 05/06/21 05:15 MCV 85.5 fL (80.0-100.0) 05/06/21 05:15 MCH 27.3 pg (27.0-34.0) 05/06/21 05:15 MCHC 32.0 g/dL (33.0-35.0) L 05/06/21 05:15 RDW 15.8 % (11.6-16.5) 05/06/21 05:15 Plt Count 211 X10^3/uL (150.0-450.0) 05/06/21 05:15 Plt Count Comment Adequate (ADEQUATE) 05/06/21 05:15 MPV 9.3 fL (7.4-11.0) 05/06/21 05:15 Neut % (Auto) 89.6 % (42.0-75.0) H 05/06/21 05:15 Lymph % (Auto) 5.9 % (21.0-51.0) L 05/06/21 05:15 [place] % (Auto) 4.3 % (0.0-13.0) 05/06/21 05:15 Eos % (Auto) 0.0 % (0.9-2.9) L 05/06/21 05:15 Baso % (Auto) 0.2 % (0.2-1.0) 05/06/21 05:15 Neut # (Auto) 21.9 x10^3/uL (2.2-4.8) H 05/06/21 05:15 Lymph # (Auto) 1.4 X10^3/uL (1.3-2.9) 05/06/21 05:15 [place] # (Auto) 1.1 x10^3/uL (0.3-0.8) H 05/06/21 05:15 Eos # (Auto) 0.0 x10^3/uL (0.0-0.2) 05/06/21 05:15 Baso # (Auto) 0.1 X10^3/uL (0.0-0.1) 05/06/21 05:15 Absolute Nucleated RBC 0.0 /100WBC 05/06/21 05:15 Total Counted 100 05/06/21 05:15 Neutrophils % (Manual) 85 % (39-76) H 05/06/21 05:15 Band Neutrophils % 4 % (0-10) 05/06/21 05:15 Lymphocytes % (Manual) 10 % (13-43) L 05/06/21 05:15 Monocytes % (Manual) 1 % (4-9) L 05/06/21 05:15 Plt Morphology Comment Normal (NORMAL) 05/06/21 05:15 RBC Morphology Normal (NORMAL) 05/06/21 05:15 Sodium 142 mmol/L (136-145) 05/06/21 05:15 Corrected Sodium TNP 05/06/21 05:15 Potassium 3.7 mmol/L (3.5-5.1) 05/06/21 05:15 Chloride 109 mmol/L (98-107) H 05/06/21 05:15 Carbon Dioxide 25.5 mmol/L (21-32) 05/06/21 05:15 BUN 8 mg/dL (7-18) 05/06/21 05:15 Creatinine 0.53 mg/dL (0.55-1.02) L 05/06/21 05:15 Est GFR (MDRD) Af Amer > 60 (>60) 05/06/21 05:15 Est GFR (MDRD) Non-Af > 60 (>60) 05/06/21 05:15 Glucose 86 mg/dL (65-99) 05/06/21 05:15 Lactic Acid 1.7 mmol/L (0.4-2.0) 05/05/21 04:52 Calcium 8.2 mg/dL (8.5-10.1) L 05/06/21 05:15 Corrected Calcium 9.7 mg/dL (8.5-10.1) 05/06/21 05:15 Total Bilirubin 0.30 mg/dL (0.2-1.0) 05/06/21 05:15 AST 15 Units/L (15-37) 05/06/21 05:15 ALT 18 Units/L (12-78) 05/06/21 05:15 Alkaline Phosphatase 74 Units/L (46-116) 05/06/21 05:15 Total Protein 5.1 g/dL (6.4-8.2) L 05/06/21 05:15 Albumin 2.1 g/dL (3.4-5.0) L 05/06/21 05:15 Globulin 3.0 g/dL (2.5-4.5) 05/06/21 05:15 Albumin/Globulin Ratio 0.7 Ratio (1.1-2.1) L 05/06/21 05:15 Specimen Type Random urine 05/05/21 04:11 Urine Color Yellow (YELLOW) 05/05/21 04:11 Urine Appearance Clear (CLEAR) 05/05/21 04:11 Urine pH 6.0 (5.0 - 8.0) 05/05/21 04:11 Ur Specific [place] 1.015 (1.000-1.030) 05/05/21 04:11 Urine Protein 2+ (NEGATIVE) 05/05/21 04:11 Urine Glucose (UA) Negative (NEGATIVE) 05/05/21 04:11 Urine Ketones Negative (NEGATIVE) 05/05/21 04:11 Urine Occult Blood Negative (NEGATIVE) 05/05/21 04:11 Urine Nitrite Negative (NEGATIVE) 05/05/21 04:11 Urine Bilirubin Negative (NEGATIVE) 05/05/21 04:11 Urine Urobilinogen Normal (NORMAL) 05/05/21 04:11 Ur Leukocyte Esterase 2+ (NEGATIVE) 05/05/21 04:11 Urine RBC None seen /HPF (0-3) 05/05/21 04:11 Urine WBC 3-5 /HPF (0-5) 05/05/21 04:11 Ur Squamous Epith Cells Few /HPF (NEGATIVE) 05/05/21 04:11 Urine Bacteria Trace /HPF (NEGATIVE) 05/05/21 04:11 Hyaline Casts Few /LPF (NEGATIVE) 05/05/21 04:11 Ur Culture Indicated? No/not indicated 05/05/21 04:11 Urine Opiates Screen Negative (NEG=<300) 05/05/21 04:11 Urine Methadone Screen Negative (NEG=<300) 05/05/21 04:11 Ur Barbiturates Screen Negative (NEG=<200) 05/05/21 04:11 Ur Phencyclidine Scrn Negative (NEG=<25) 05/05/21 04:11 Ur Amphetamines Screen Negative (NEG=<1000) 05/05/21 04:11 U Benzodiazepines Scrn Negative (NEG=<200) 05/05/21 04:11 Urine Cocaine Screen Negative (NEG=<300) 05/05/21 04:11 U Marijuana (THC) Screen Negative (NEG=<50) 05/05/21 04:11 SARS-CoV-2 (PCR) Negative (NEGATIVE) 05/05/21 03:26 Influenza Type A (PCR) Negative (NEGATIVE) 05/05/21 03:26 Influenza Type B (PCR) Negative (NEGATIVE) 05/05/21 03:26 RSV (PCR) Negative (NEGATIVE) 05/05/21 03:26 Plan (1) Intractable vomiting: Status: Acute (2) Aspiration pneumonia: Status: Acute Qualifiers: Aspiration pneumonia type: due to regurgitated food Laterality: bilateral Lung location: lower lobe of lung Qualified Code(s): J69.0 - Pneumonitis due to inhalation of food and vomit (3) Sepsis: Status: Acute Qualifiers: Sepsis acute organ dysfunction status: with acute organ dysfunction Sepsis type: sepsis due to unspecified organism Severe sepsis acute organ dysfunction type: encephalopathy Severe sepsis shock status: without septic shock Qualified Code(s): A41.9 - Sepsis, unspecified organism; R65.20 - Severe sepsis without septic shock; G93.40 - Encephalopathy, unspecified (4) Atrial fibrillation: Status: Chronic Qualifiers: Atrial fibrillation type: unspecified Qualified Code(s): I48.91 - Unspecified atrial fibrillation (5) CVA (cerebral vascular accident): Status: Chronic Qualifiers: CVA mechanism: unspecified Qualified Code(s): I63.9 - Cerebral infarction, unspecified (6) Seizures: Status: Chronic (7) Lower back pain: Status: Chronic Qualifiers: Back pain laterality: bilateral Chronicity: acute Sciatica presence: without sciatica Qualified Code(s): M54.5 - Low back pain
[2021-05-06] MEDS: LIPITOR TAB 40 MG PO SCH (21:00)
[2021-05-07] MEDS: XOPENEX 1.25 MG/3 ML NEBULE NEB SCH ×4 (00:09→17:58)
[2021-05-07] MEDS: NS 1,000 ML IV 1,000 ML IV SCH ×5 (04:01→23:03)
[2021-05-07] MEDS: ZOSYN VIAL 3.375 GRAMS 3.375 G in NS 100 ML IV + SPIKE MINIBAG* 100 ML IV SCH ×3 (05:15→22:55)
[2021-05-07 06:25] LABS: BASOPHILS % (AUTO) 0.3 % (0.2-1.0); EOSINOPHILS # (AUTO) 0.1 x10^3/uL (0.0-0.2); EOSINOPHILS % (AUTO) 0.7 % (0.9-2.9); HEMATOCRIT 25.3 % (36.0-47.0); HEMOGLOBIN 8.4 g/dL (12.0-16.0); LYMPHOCYTES # (AUTO) 1.1 X10^3/uL (1.3-2.9); LYMPHOCYTES % (AUTO) 6.4 % (21.0-51.0); MEAN CORPUSCULAR HEMOGLOBIN 27.8 pg (27.0-34.0); MEAN CORPUSCULAR HGB CONC 33.1 g/dL (33.0-35.0); MEAN PLATELET VOLUME 9.2 fL (7.4-11.0); MONOCYTES # (AUTO) 1.2 x10^3/uL (0.3-0.8); MONOCYTES % (AUTO) 7.3 % (0.0-13.0); NEUTROPHILS % (AUTO) 85.3 % (42.0-75.0); PLATELET COUNT 201 X10^3/uL (150.0-450.0); RED BLOOD COUNT 3.01 X10^6/uL (3.5-5.4); RED CELL DISTRIBUTION WIDTH 15.6 % (11.6-16.5); WHITE BLOOD COUNT 16.4 X10^3/uL (3.6-10.0)
[2021-05-07 06:39] LABS: ALANINE AMINOTRANSFERASE 15 Units/L (12-78); ALBUMIN 2.1 g/dL (3.4-5.0); ALKALINE PHOSPHATASE 80 Units/L (46-116); ASPARTATE AMINO TRANSFERASE 13 Units/L (15-37); BLOOD UREA NITROGEN 5 mg/dL (7-18); CALCIUM 8.2 mg/dL (8.5-10.1); CARBON DIOXIDE 23.8 mmol/L (21-32); CHLORIDE 109 mmol/L (98-107); COR CA(FOR HYPOALB) 9.7 mg/dL (8.5-10.1); CREATININE 0.51 mg/dL (0.55-1.02); SODIUM 142 mmol/L (136-145); TOTAL PROTEIN 5.3 g/dL (6.4-8.2); eGFR NON BLACK RACES > 60 (>60)
[2021-05-07] MEDS ORDERED: TESSALON PERLES PO PRN (08:15)
--- NOTE | 2021-05-07 08:43 | RAD ---
HISTORYSOB, PNEUMONIASTUDYCHEST, 1 VIEWCOMPARISONPortable chest radiograph May 05 and October 19TECHNIQUEPortable chest radiographFINDINGSThe lungs remain hyperinflated with flattened diaphragms. There are patchy, multi lobar interstitial airspace opacities with coarsened morphology and background ground-glass attenuation scattered throughout the bilateral lungs. The pleural spaces remain clear. The heart size is unchanged. There is no free air or pneumothorax identified. No acute osseous abnormalities of the chest are demonstrated.IMPRESSIONInterval progression of multi lobar bilateral pulmonary opacities/infiltrates associated with an atypical pneumonia pattern. Specifically, this may be associated with nonspecific viral and atypical organism infections including COVID-19 in the appropriate clinical setting.Radiographic features of underlying COPD.Electronically signed by: DONOVAN SMALLS (May 07, 2021 08:43:02)
[2021-05-07] MEDS: ELIQUIS PO SCH ×2 (09:13→20:10)
[2021-05-07] MEDS: PROTONIX TAB 40 MG PO SCH (09:14)
[2021-05-07] MEDS: KEPPRA TAB 500 MG PO SCH ×2 (09:14→20:10)
[2021-05-07] MEDS: SYNTHROID 75 mcg TAB PO SCH (09:15)
[2021-05-07] MEDS: REQUIP PO SCH ×3 (09:15→21:20)
[2021-05-07] MEDS: PROzac PO SCH (09:15)
[2021-05-07] MEDS: VANCOMYCIN IV *PREMIX 1 G/200 ML BAG 1 G/200 ML PIGGYBACK IV SCH ×2 (09:16→21:18)
[2021-05-07] MEDS: ZOFRAN INJ 4 MG VIAL IVP PRN ×2 (09:17→18:23)
--- NOTE | 2021-05-07 09:21 | PCM.PROG ---
Progress Note Progress Note for Day of Date of Exam: 05/07/21 Subjective Subjective: Patient seen at bedside, no events overnight. She feels better. She still has some cough. She was able to tolerate full liquids. Speech saw her and did not notice any risk of aspiration during their evaluation as long as patient continues to follow aspiration precautions which she is well aware of. Her WBC is trending down. Labs reviewed Plan: Order CXR and sputum Cx. Continue IV Zosyn and Vancomycin. Continue nebs and IS. Patient remains on her home O2 2L via nc. Advance diet to cardiac diet. Continue home medications. PT/OT as tolerated. Monitor AM labs. Possible discharge tomorrow if patient feeling better. Past Medical Family Social History Past Med/Fam/Surg Hx: No changes since H&P Allergies: Allergies Sulfa (Sulfonamide Antibiotics) [SULFA] Allergy (Verified 05/05/21 07:42) Review of Systems ROS: No change since H&P Vital Signs and I&O's Vital Signs: Temperature 100.0 F Pulse Rate [Left Brachial] 97 Pulse Rate 97 Respiratory Rate 20 Blood Pressure [Right Arm] 145/67 Blood Pressure [Left Arm] 111/58 Blood Pressure 95/54 O2 Sat by Pulse Oximetry 95 Intake and Output: Intake & Output 05/04/21 05/05/21 05/06/21 05/07/21 23:59 23:59 23:59 23:59 Intake Total 1651 / 1651 3757 / 3757 897 / 897 Balance 1651 / 1651 3757 / 3757 897 / 897 Physical Exam Oriented: Normal Eyes: Normal Ear: Normal Nose: Normal Throat: Normal Respiratory: Right, Generalized and Diminished Cardiovascular: Normal Auscultation: Bowel Sounds: Normal Tenderness: Normal Skin: Decreased [place]urgur Musculoskeletal: Normal Psychiatric: Normal Mood Description: Calm Affect: Normal Speech Pattern: Clear Laboratory and Diagnostics Result Diagrams: 05/07/21 05:46 05/07/21 05:46 Labs: Laboratory WBC 16.4 X10^3/uL (3.6-10.0) H D 05/07/21 05:46 RBC 3.01 X10^6/uL (3.5-5.4) L 05/07/21 05:46 Hgb 8.4 g/dL (12.0-16.0) L 05/07/21 05:46 Hct 25.3 % (36.0-47.0) L 05/07/21 05:46 MCV 84.0 fL (80.0-100.0) 05/07/21 05:46 MCH 27.8 pg (27.0-34.0) 05/07/21 05:46 MCHC 33.1 g/dL (33.0-35.0) 05/07/21 05:46 RDW 15.6 % (11.6-16.5) 05/07/21 05:46 Plt Count 201 X10^3/uL (150.0-450.0) 05/07/21 05:46 Plt Count Comment Adequate (ADEQUATE) 05/06/21 05:15 MPV 9.2 fL (7.4-11.0) 05/07/21 05:46 Neut % (Auto) 85.3 % (42.0-75.0) H 05/07/21 05:46 Lymph % (Auto) 6.4 % (21.0-51.0) L 05/07/21 05:46 [place] % (Auto) 7.3 % (0.0-13.0) 05/07/21 05:46 Eos % (Auto) 0.7 % (0.9-2.9) L 05/07/21 05:46 Baso % (Auto) 0.3 % (0.2-1.0) 05/07/21 05:46 Neut # (Auto) 14.0 x10^3/uL (2.2-4.8) H 05/07/21 05:46 Lymph # (Auto) 1.1 X10^3/uL (1.3-2.9) L 05/07/21 05:46 [place] # (Auto) 1.2 x10^3/uL (0.3-0.8) H 05/07/21 05:46 Eos # (Auto) 0.1 x10^3/uL (0.0-0.2) 05/07/21 05:46 Baso # (Auto) 0.0 X10^3/uL (0.0-0.1) 05/07/21 05:46 Absolute Nucleated RBC 0.0 /100WBC 05/07/21 05:46 Total Counted 100 05/06/21 05:15 Neutrophils % (Manual) 85 % (39-76) H 05/06/21 05:15 Band Neutrophils % 4 % (0-10) 05/06/21 05:15 Lymphocytes % (Manual) 10 % (13-43) L 05/06/21 05:15 Monocytes % (Manual) 1 % (4-9) L 05/06/21 05:15 Plt Morphology Comment Normal (NORMAL) 05/06/21 05:15 RBC Morphology Normal (NORMAL) 05/06/21 05:15 Sodium 142 mmol/L (136-145) 05/07/21 05:46 Corrected Sodium TNP 05/07/21 05:46 Potassium 3.5 mmol/L (3.5-5.1) 05/07/21 05:46 Chloride 109 mmol/L (98-107) H 05/07/21 05:46 Carbon Dioxide 23.8 mmol/L (21-32) 05/07/21 05:46 BUN 5 mg/dL (7-18) L 05/07/21 05:46 Creatinine 0.51 mg/dL (0.55-1.02) L 05/07/21 05:46 Est GFR (MDRD) Af Amer > 60 (>60) 05/07/21 05:46 Est GFR (MDRD) Non-Af > 60 (>60) 05/07/21 05:46 Glucose 103 mg/dL (65-99) H 05/07/21 05:46 Lactic Acid 1.7 mmol/L (0.4-2.0) 05/05/21 04:52 Calcium 8.2 mg/dL (8.5-10.1) L 05/07/21 05:46 Corrected Calcium 9.7 mg/dL (8.5-10.1) 05/07/21 05:46 Total Bilirubin 0.40 mg/dL (0.2-1.0) 05/07/21 05:46 AST 13 Units/L (15-37) L 05/07/21 05:46 ALT 15 Units/L (12-78) 05/07/21 05:46 Alkaline Phosphatase 80 Units/L (46-116) 05/07/21 05:46 Total Protein 5.3 g/dL (6.4-8.2) L 05/07/21 05:46 Albumin 2.1 g/dL (3.4-5.0) L 05/07/21 05:46 Globulin 3.2 g/dL (2.5-4.5) 05/07/21 05:46 Albumin/Globulin Ratio 0.7 Ratio (1.1-2.1) L 05/07/21 05:46 Specimen Type Random urine 05/05/21 04:11 Urine Color Yellow (YELLOW) 05/05/21 04:11 Urine Appearance Clear (CLEAR) 05/05/21 04:11 Urine pH 6.0 (5.0 - 8.0) 05/05/21 04:11 Ur Specific [place] 1.015 (1.000-1.030) 05/05/21 04:11 Urine Protein 2+ (NEGATIVE) 05/05/21 04:11 Urine Glucose (UA) Negative (NEGATIVE) 05/05/21 04:11 Urine Ketones Negative (NEGATIVE) 05/05/21 04:11 Urine Occult Blood Negative (NEGATIVE) 05/05/21 04:11 Urine Nitrite Negative (NEGATIVE) 05/05/21 04:11 Urine Bilirubin Negative (NEGATIVE) 05/05/21 04:11 Urine Urobilinogen Normal (NORMAL) 05/05/21 04:11 Ur Leukocyte Esterase 2+ (NEGATIVE) 05/05/21 04:11 Urine RBC None seen /HPF (0-3) 05/05/21 04:11 Urine WBC 3-5 /HPF (0-5) 05/05/21 04:11 Ur Squamous Epith Cells Few /HPF (NEGATIVE) 05/05/21 04:11 Urine Bacteria Trace /HPF (NEGATIVE) 05/05/21 04:11 Hyaline Casts Few /LPF (NEGATIVE) 05/05/21 04:11 Ur Culture Indicated? No/not indicated 05/05/21 04:11 Urine Opiates Screen Negative (NEG=<300) 05/05/21 04:11 Urine Methadone Screen Negative (NEG=<300) 05/05/21 04:11 Ur Barbiturates Screen Negative (NEG=<200) 05/05/21 04:11 Ur Phencyclidine Scrn Negative (NEG=<25) 05/05/21 04:11 Ur Amphetamines Screen Negative (NEG=<1000) 05/05/21 04:11 U Benzodiazepines Scrn Negative (NEG=<200) 05/05/21 04:11 Urine Cocaine Screen Negative (NEG=<300) 05/05/21 04:11 U Marijuana (THC) Screen Negative (NEG=<50) 05/05/21 04:11 SARS-CoV-2 (PCR) Negative (NEGATIVE) 05/05/21 03:26 Influenza Type A (PCR) Negative (NEGATIVE) 05/05/21 03:26 Influenza Type B (PCR) Negative (NEGATIVE) 05/05/21 03:26 RSV (PCR) Negative (NEGATIVE) 05/05/21 03:26 Plan (1) Intractable vomiting: Status: Acute (2) Aspiration pneumonia: Status: Acute Qualifiers: Aspiration pneumonia type: due to regurgitated food Laterality: bilateral Lung location: lower lobe of lung Qualified Code(s): J69.0 - Pneumonitis due to inhalation of food and vomit (3) Sepsis: Status: Acute Qualifiers: Sepsis acute organ dysfunction status: with acute organ dysfunction Sepsis type: sepsis due to unspecified organism Severe sepsis acute organ dysfunction type: encephalopathy Severe sepsis shock status: without septic shock Qualified Code(s): A41.9 - Sepsis, unspecified organism; R65.20 - Severe sepsis without septic shock; G93.40 - Encephalopathy, unspecified (4) Atrial fibrillation: Status: Chronic Qualifiers: Atrial fibrillation type: unspecified Qualified Code(s): I48.91 - Unspecified atrial fibrillation (5) CVA (cerebral vascular accident): Status: Chronic Qualifiers: CVA mechanism: unspecified Qualified Code(s): I63.9 - Cerebral infarction, unspecified (6) Seizures: Status: Chronic (7) Lower back pain: Status: Chronic Qualifiers: Back pain laterality: bilateral Chronicity: acute Sciatica presence: without sciatica Qualified Code(s): M54.5 - Low back pain
[2021-05-07] MEDS: PULMICORT NEB TX 0.5 MG NEB SCH ×2 (09:26→21:16)
[2021-05-07] MEDS: TYLENOL 500 MG TAB EXTRA STRENGTH PO PRN (13:40)
[2021-05-07] MEDS: LIPITOR TAB 40 MG PO SCH (20:10)
[2021-05-07] MEDS ORDERED: PHARMACY COMMENT IV NR (20:30)
[2021-05-07 20:36] LABS: CREATININE 0.64 mg/dL (0.55-1.02); VANCOMYCIN,TROUGH 5.9 ug/mL (15-20)
[2021-05-08] MEDS: XOPENEX 1.25 MG/3 ML NEBULE NEB SCH ×3 (00:24→11:39)
[2021-05-08] MEDS: ZOFRAN INJ 4 MG VIAL IVP PRN ×2 (02:38→10:08)
[2021-05-08 06:07] LABS: BASOPHILS # (AUTO) 0.1 X10^3/uL (0.0-0.1); BASOPHILS % (AUTO) 0.5 % (0.2-1.0); EOSINOPHILS # (AUTO) 0.2 x10^3/uL (0.0-0.2); EOSINOPHILS % (AUTO) 1.3 % (0.9-2.9); HEMATOCRIT 25.1 % (36.0-47.0); HEMOGLOBIN 8.2 g/dL (12.0-16.0); LYMPHOCYTES # (AUTO) 0.9 X10^3/uL (1.3-2.9); LYMPHOCYTES % (AUTO) 6.7 % (21.0-51.0); MEAN CORPUSCULAR HEMOGLOBIN 27.5 pg (27.0-34.0); MEAN CORPUSCULAR HGB CONC 32.7 g/dL (33.0-35.0); MEAN CORPUSCULAR VOLUME 84.2 fL (80.0-100.0); MONOCYTES % (AUTO) 7.3 % (0.0-13.0); NEUTROPHILS # (AUTO) 11.7 x10^3/uL (2.2-4.8); NEUTROPHILS % (AUTO) 84.2 % (42.0-75.0); PLATELET COUNT 218 X10^3/uL (150.0-450.0); RED BLOOD COUNT 2.98 X10^6/uL (3.5-5.4); RED CELL DISTRIBUTION WIDTH 15.6 % (11.6-16.5); WHITE BLOOD COUNT 13.8 X10^3/uL (3.6-10.0)
[2021-05-08 06:11] LABS: BLOOD UREA NITROGEN 2 mg/dL (7-18); CALCIUM 8.2 mg/dL (8.5-10.1); CARBON DIOXIDE 26.2 mmol/L (21-32); CHLORIDE 108 mmol/L (98-107); CREATININE 0.49 mg/dL (0.55-1.02); SODIUM 144 mmol/L (136-145); eGFR NON BLACK RACES > 60 (>60)
[2021-05-08] MEDS: ZOSYN VIAL 3.375 GRAMS 3.375 G in NS 100 ML IV + SPIKE MINIBAG* 100 ML IV SCH (06:33)
[2021-05-08] MEDS: NS 1,000 ML IV 1,000 ML IV SCH ×2 (06:33→07:09)
[2021-05-08] MEDS ORDERED: POTASSIUM CHL 60 MEQ/NS 0.45% 500 ML IV PRN (06:38)
[2021-05-08] MEDS ORDERED: MICRO K EXTEN CAP 10 MEQ PO PRN (06:38)
[2021-05-08] MEDS ORDERED: K-RIDER 10 MEQ/NS 100 ML 10 MEQ/100 ML BAG IV PRN (06:38)
[2021-05-08] MEDS ORDERED: POTASSIUM CHL 40 MEQ/NS 0.45% 500 ML IV PRN (06:38)
[2021-05-08] MEDS ORDERED: KLOR-CON PO PRN (06:38)
[2021-05-08] MEDS ORDERED: POTASSIUM CHLORIDE LIQ 20 MEQ UDC PO PRN (06:38)
[2021-05-08] MEDS ORDERED: K-DUR TAB 20 MEQ PO PRN (06:38)
[2021-05-08] MEDS ORDERED: MAGNESIUM SULFATE 1 GRAM/100 mL PREMIX 1 G/100 ML BAG IV PRN (07:12)
[2021-05-08] MEDS: PULMICORT NEB TX 0.5 MG NEB SCH (09:11)
[2021-05-08] MEDS: VANCOMYCIN IV *PREMIX 1 G/200 ML BAG 1 G/200 ML PIGGYBACK IV SCH (09:40)
[2021-05-08] MEDS: ELIQUIS PO SCH (09:57)
[2021-05-08] MEDS: PROTONIX TAB 40 MG PO SCH (09:58)
[2021-05-08] MEDS: PROzac PO SCH (09:58)
[2021-05-08] MEDS: SYNTHROID 75 mcg TAB PO SCH (09:58)
[2021-05-08] MEDS: REQUIP PO SCH (09:58)
[2021-05-08] MEDS: KEPPRA TAB 500 MG PO SCH (09:58)
[2021-05-08] MEDS ORDERED: VIBRAMYCIN PO SCH (13:00)
[2021-05-08 14:06] VITALS: BP 172/70
== END 2021-05-08 13:40 | disposition home or self-care (01) | DRG 871 ==
LOC: ER 03:09 → U 06:40 → MED/SURG 13:25
PROVIDERS: ADMIT Internal Medicine; ATTEND Internal Medicine
DX: M54.59 Other low back pain; R65.20 Severe sepsis without septic shock; J69.0 Pneumonitis due to inhalation of food and vomit; R11.10 Vomiting, unspecified; R26.89 Other abnormalities of gait and mobility; G93.40 Encephalopathy, unspecified; Z20.822 Contact with and (suspected) exposure to COVID-19; I63.89 Other cerebral infarction; A41.89 Other specified sepsis; I48.91 Unspecified atrial fibrillation; R06.02 Shortness of breath

== ENCOUNTER 2023-08-20 09:55 | Inpatient (IN) ==
--- NOTE | 2023-08-20 10:14 | DR.SOBA ---
HPI Time Seen Time Seen by Provider: 08/20/23 10:05 HPI Comment HPI Comment: c/o sob x several days worse today weakness had covid with nursing home pulmonary compromise hx smoking hx cva hx seizures hx afib hx ablation PMH PMH Past Medical History: Arthritis, Asthma, COPD, CVA, Dyslipidemia and Renal Disease Past Surgical History: Yes Surgical History: Abdominal Surgery, Appendectomy, Hysterectomy, Ortho Surgery and Tonsillectomy Family History Family Medical History: Cancer and Hypertension Social History Do you use any recreational Drugs:: No ROS Review of Systems All Other Systems: Reviewed and Negative PE Vital Signs Vitals: Vital Signs Temperature 98.3 F Temperature 98.7 F Pulse Rate 100 Pulse Rate 97 Pulse Rate 100 Pulse Rate 98 Pulse Rate 100 Pulse Rate 98 Pulse Rate 97 Pulse Rate 97 Pulse Rate 97 Pulse Rate 103 Pulse Rate 101 Pulse Rate 101 Pulse Rate 102 Pulse Rate 108 Pulse Rate 107 Pulse Rate 107 Pulse Rate 108 Respiratory Rate 21 Respiratory Rate 43 Respiratory Rate 24 Respiratory Rate 24 Respiratory Rate 28 Respiratory Rate 25 Respiratory Rate 20 Respiratory Rate 23 Respiratory Rate 20 Respiratory Rate 20 Respiratory Rate 21 Respiratory Rate 27 Respiratory Rate 26 Respiratory Rate 20 Respiratory Rate 11 Respiratory Rate 13 Respiratory Rate 20 Blood Pressure 108/57 Blood Pressure 106/59 Blood Pressure 105/57 Blood Pressure 105/57 Blood Pressure 99/59 Blood Pressure 92/54 Blood Pressure 99/58 Blood Pressure 99/58 O2 Sat by Pulse Oximetry 98 O2 Sat by Pulse Oximetry 96 O2 Sat by Pulse Oximetry 96 O2 Sat by Pulse Oximetry 97 O2 Sat by Pulse Oximetry 96 O2 Sat by Pulse Oximetry 93 O2 Sat by Pulse Oximetry 96 O2 Sat by Pulse Oximetry 95 O2 Sat by Pulse Oximetry 97 O2 Sat by Pulse Oximetry 94 O2 Sat by Pulse Oximetry 96 O2 Sat by Pulse Oximetry 89 O2 Sat by Pulse Oximetry 94 O2 Sat by Pulse Oximetry 92 O2 Sat by Pulse Oximetry 89 General General Appearance: Anxious and Other Eyes Eye exam: Normal Appearance Respiratory Respiratory Exam: Respiratory Distress (slight laboured) Abdominal Exam Abdominal Exam: Normal Inspection Neurologic Neurological Exam: Oriented X3 COURSE Consultation Called: 12:39 Consultation Comments: Dr Gilbert agreed to admit floor ROR Labs Reviewed 08/20/23 11:10 08/20/23 11:10 Laboratory: WBC 24.6 X10^3/uL (3.6-10.0) H 08/20/23 11:10 RBC 4.02 X10^6/uL (3.5-5.4) 08/20/23 11:10 Hgb 9.4 g/dL (12.0-16.0) L 08/20/23 11:10 Hct 30.9 % (36.0-47.0) L 08/20/23 11:10 MCV 77.0 fL (80.0-100.0) L 08/20/23 11:10 MCH 23.4 pg (27.0-34.0) L 08/20/23 11:10 MCHC 30.3 g/dL (33.0-35.0) L 08/20/23 11:10 RDW 17.8 % (11.6-16.5) H 08/20/23 11:10 Plt Count 240 X10^3/uL (150.0-450.0) 08/20/23 11:10 Plt Count Comment Adequate (ADEQUATE) 08/20/23 11:10 MPV 8.6 fL (7.4-11.0) 08/20/23 11:10 Neut % (Auto) 90.5 % (42.0-75.0) H 08/20/23 11:10 Lymph % (Auto) 4.7 % (21.0-51.0) L 08/20/23 11:10 [place] % (Auto) 4.7 % (0.0-13.0) 08/20/23 11:10 Eos % (Auto) 0.0 % (0.9-2.9) L 08/20/23 11:10 Baso % (Auto) 0.1 % (0.2-1.0) L 08/20/23 11:10 Neut # (Auto) 22.2 x10^3/uL (2.2-4.8) H 08/20/23 11:10 Lymph # (Auto) 1.2 X10^3/uL (1.3-2.9) L 08/20/23 11:10 [place] # (Auto) 1.2 x10^3/uL (0.3-0.8) H 08/20/23 11:10 Eos # (Auto) 0.0 x10^3/uL (0.0-0.2) 08/20/23 11:10 Baso # (Auto) 0.0 X10^3/uL (0.0-0.1) 08/20/23 11:10 Absolute Nucleated RBC 0.0 /100WBC 08/20/23 11:10 Total Counted 100 08/20/23 11:10 Neutrophils % (Manual) 88 % (39-76) H 08/20/23 11:10 Lymphocytes % (Manual) 8 % (13-43) L 08/20/23 11:10 Monocytes % (Manual) 4 % (4-9) 08/20/23 11:10 Plt Morphology Comment Normal (NORMAL) 08/20/23 11:10 RBC Morphology Abnormal (NORMAL) A 08/20/23 11:10 Hypochromasia 1+ A 08/20/23 11:10 Anisocytosis Slight A 08/20/23 11:10 Microcytosis Slight A 08/20/23 11:10 Sample Site Rb 08/20/23 10:20 ABG pH 7.390 (7.35-7.45) 08/20/23 10:20 ABG pCO2 41.0 mmHg (35.0-45.0) 08/20/23 10:20 ABG pO2 71.0 mmHg (80.0-100.0) L 08/20/23 10:20 ABG HCO3 24.8 mmol/L (22-26) 08/20/23 10:20 ABG O2 Saturation 94.0 % (90-100) 08/20/23 10:20 ABG Base Excess -0.2 mmol/L (-2.0-2.0) 08/20/23 10:20 Reagan Test Pos 08/20/23 10:20 A-a Gradient 77.0 mmHg 08/20/23 10:20 FiO2 28.0 08/20/23 10:20 Blood Gas Comments Pt negro well eb 08/20/23 10:20 Sodium 143 mmol/L (136-145) 08/20/23 11:10 Corrected Sodium 143 mmol/L (136-145) 08/20/23 11:10 Potassium 4.0 mmol/L (3.5-5.1) 08/20/23 11:10 Chloride 107 mmol/L (98-107) 08/20/23 11:10 Carbon Dioxide 27.2 mmol/L (21-32) 08/20/23 11:10 BUN 17 mg/dL (7-18) 08/20/23 11:10 Creatinine 0.92 mg/dL (0.55-1.02) 08/20/23 11:10 Est GFR (MDRD) Af Amer > 60 (>60) 08/20/23 11:10 Est GFR (MDRD) Non-Af > 60 (>60) 08/20/23 11:10 Glucose 112 mg/dL (65-99) H 08/20/23 11:10 Lactic Acid 2.8 mmol/L (0.4-2.0) H 08/20/23 11:10 Calcium 8.1 mg/dL (8.5-10.1) L 08/20/23 11:10 Corrected Calcium 9.1 mg/dL (8.5-10.1) 08/20/23 11:10 Total Bilirubin 0.40 mg/dL (0.2-1.0) 08/20/23 11:10 AST 17 Units/L (15-37) 08/20/23 11:10 ALT 17 Units/L (12-78) 08/20/23 11:10 Alkaline Phosphatase 97 Units/L (46-116) 08/20/23 11:10 Troponin I High Sens 18.0 ng/L (4.0-60.0) 08/20/23 11:10 Total Protein 5.9 g/dL (6.4-8.2) L 08/20/23 11:10 Albumin 2.7 g/dL (3.4-5.0) L 08/20/23 11:10 Globulin 3.2 g/dL (2.5-4.5) 08/20/23 11:10 Albumin/Globulin Ratio 0.8 Ratio (1.1-2.1) L 08/20/23 11:10 Specimen Type Catherized urine 08/20/23 10:35 Urine Color Yellow (YELLOW) 08/20/23 10:35 Urine Appearance Clear (CLEAR) 08/20/23 10:35 Urine pH 5.0 (5.0 - 8.0) 08/20/23 10:35 Ur Specific [place] 1.025 (1.000-1.030) 08/20/23 10:35 Urine Protein 2+ (NEGATIVE) 08/20/23 10:35 Urine Glucose (UA) Negative (NEGATIVE) 08/20/23 10:35 Urine Ketones 1+ (NEGATIVE) 08/20/23 10:35 Urine Blood Negative (NEGATIVE) 08/20/23 10:35 Urine Nitrite Negative (NEGATIVE) 08/20/23 10:35 Urine Bilirubin 1+ (NEGATIVE) 08/20/23 10:35 Urine Urobilinogen 1+ (NORMAL) 08/20/23 10:35 Ur Leukocyte Esterase 1+ (NEGATIVE) 08/20/23 10:35 Urine RBC 0-2 /HPF (0-3) 08/20/23 10:35 Urine WBC 0-2 /HPF (0-5) 08/20/23 10:35 Ur Squamous Epith Cells Few /HPF (NEGATIVE) 08/20/23 10:35 Ur Transition Epith Cell Few /HPF (NEGATIVE) 08/20/23 10:35 Amorphous Sediment 1+ /HPF (NEGATIVE) 08/20/23 10:35 Urine Bacteria 2+ /HPF (NEGATIVE) 08/20/23 10:35 Urine Mucus Many /HPF (NEGATIVE) 08/20/23 10:35 Ur Culture Indicated? Yes/culture set up 08/20/23 10:35 SARS-CoV-2 (PCR) Negative (NEGATIVE) 08/20/23 10:31 Influenza Type A (PCR) Negative (NEGATIVE) 08/20/23 10:31 Influenza Type B (PCR) Negative (NEGATIVE) 08/20/23 10:31 RSV (PCR) Negative (NEGATIVE) 08/20/23 10:31 XRAY X-ray Results: cxr lt pneumonia EKG Rate: 102 Rhythm: ST ST: Normal Opioid Opioid Risk Tool Age (Marquez box if 16-45): No History of Preadolescent Sexual Abuse: No Total: 0 Total Score Risk Category: Low Risk Copyright: Isaac MICHAEL predicting aberrant behaviors Discharge Plan Diagnosis Discharge Problem: Sepsis, Pneumonia Discharge Plan Patient Disposition: 01 HOME, SELF-CARE Condition: Stable Prescriptions: No Action atorvastatin 40 mg tablet 40 mg PO QDAY levetiracetam 500 mg tablet 500 mg PO BID hydrocodone-acetaminophen 5-325 mg tablet 1.5 tab PO QDAY PRN gabapentin 400 mg capsule 400 mg PO TID famotidine 20 mg tablet 40 mg PO BID PRN magnesium oxide 400 mg (241.3 mg magnesium) tablet 400 mg PO QDAY baclofen 10 mg tablet 10 mg PO TID PRN desloratadine 5 mg tablet 5 mg PO QPM ropinirole 2 mg tablet 2 mg PO QDAY lidocaine 5 % adhesive patch,medicated 1 patch QDAY omeprazole 20 mg capsule,delayed release(DR/EC) 20 mg PO QDAY montelukast 10 mg tablet 10 mg PO QAM estradiol 0.01 % (0.1 mg/gram) cream 2 g vaginal QDAY albuterol sulfate 90 mcg/actuation HFA aerosol inhaler 1 inh INHALATION Q4HR naproxen 500 mg tablet 500 mg PO BID PRN ezetimibe 10 mg tablet 10 mg PO QDAY duloxetine 30 mg capsule,delayed release(DR/EC) 30 mg PO QDAY duloxetine 60 mg capsule,delayed release(DR/EC) 60 mg PO QAM eszopiclone 3 mg tablet 3 mg PO QPM Eliquis 5 mg tablet 5 mg PO BID Trelegy Ellipta 200-62.5-25 mcg blister with device 1 ea INHALATION QDAY Health Concerns: Post Hospitalization: new medications and changes needed to prevent readmission or further decline. Pt educated and given instructions on all concerns. Plan of Treatment: Continue with present treatment and follow up plan. Pt is to keep follow up appointment as instructed and take medications as ordered. Follow ups/Referrals Follow ups/Referrals: ARUN PEREIRA [Primary Care Provider] - 3 days Instructions Stand Alone Forms: Post Hospital Follow Up Care
--- NOTE | 2023-08-20 10:19 | EKG ---
Test Reason : chest pain Blood Pressure : */* mmHG Vent. Rate : 102 BPM Atrial Rate : 102 BPM P-R Int : 122 ms QRS Dur : 76 ms QT Int : 354 ms P-R-T Axes : 40 -14 52 degrees QTc Int : 461 ms Sinus tachycardia Otherwise normal ECG When compared with ECG of 30-SEP-2022 12:30, No significant change was found Confirmed by Kishor Estrada MD ([id number]) on 08/21/2023 7:38:14 AM Referred By: Confirmed By: Kishor Estrada MD
[2023-08-20 10:23] LABS: ABG BASE EXCESS -0.2 mmol/L (-2.0-2.0); ABG HCO3 24.8 mmol/L (22-26)
[2023-08-20 10:24] LABS: ABG ALLEN TEST POS
[2023-08-20] MEDS: DUONEB 0.5 MG/3 MG (3 mL) NEB ONE (10:27)
[2023-08-20] MEDS ORDERED: NS 1,000 ML IV 1,000 ML ONE (10:36)
[2023-08-20] MEDS: ZOFRAN INJ 4 MG VIAL IVP ONE (10:39)
[2023-08-20] MEDS: SOLU-Medrol 125 MG VIAL IVP ONE (10:39)
[2023-08-20] MEDS: MORPHINE SULFATE INJ 2 MG INJ IVP ONE (10:40)
[2023-08-20] MEDS: NS 1,000 ML IV 1,000 ML IV ONE ×2 (10:46→12:20)
[2023-08-20 10:56] LABS: BILIRUBIN,URINE 1+ (NEGATIVE); BLOOD/HEMOGLOBIN,URINE NEGATIVE (NEGATIVE); GLUCOSE, URINE NEGATIVE (NEGATIVE); KETONES,URINE 1+ (NEGATIVE); LEUKOCYTE ESTERASE ,URINE 1+ (NEGATIVE); NITRITES,URINE NEGATIVE (NEGATIVE); PROTEIN,URINE 2+ (NEGATIVE); UROBILINOGEN,URINE 1+ (NORMAL)
[2023-08-20 10:58] LABS: APPEARANCE,URINE CLEAR (CLEAR); COLOR,URINE YELLOW (YELLOW)
[2023-08-20 11:07] LABS: BACTERIA,URINE 2+ /HPF (NEGATIVE); RBC,URINE 0-2 /HPF (0-3); SQUAMOUS EPITHELIAL CELL,UR FEW /HPF (NEGATIVE)
[2023-08-20 11:08] LABS: TRANSITIONAL EPI CELLS,URINE FEW /HPF (NEGATIVE)
--- NOTE | 2023-08-20 11:09 | RAD ---
EXAM: CHEST, 1 VIEW HISTORY: Shortness of breath COMPARISON: 03/21/2023 FINDINGS: The trachea is midline. The cardiac silhouette is enlarged with a tortuous thoracic aorta. Scattere d airspace opacity throughout the left hemithorax is observed consistent with multifocal pneumonia. Of the right hemithorax appears clear. The bony thorax is unremarkable. IMPRESSION: Multifocal bronchopneumonia of the left hemithorax. THIS IS AN ELECTRONICALLY VERIFIED FINAL REPORT 08/20/2023 11:02 AM - Electronically signed by Percy Alfred MD
[2023-08-20] MEDS: NS IV SCH (11:12)
[2023-08-20] MEDS: ROCEPHIN IV SCH (11:12)
[2023-08-20] MEDS: ROCEPHIN VIAL 1 GRAM IV ONE (11:12)
[2023-08-20 11:32] LABS: BASOPHILS % (AUTO) 0.1 % (0.2-1.0); HEMOGLOBIN 9.4 g/dL (12.0-16.0); MEAN CORPUSCULAR HGB CONC 30.3 g/dL (33.0-35.0); MONOCYTES # (AUTO) 1.2 x10^3/uL (0.3-0.8); MONOCYTES % (AUTO) 4.7 % (0.0-13.0)
[2023-08-20 11:55] LABS: HEMATOCRIT 30.9 % (36.0-47.0); LYMPHOCYTES # (AUTO) 1.2 X10^3/uL (1.3-2.9); LYMPHOCYTES % (AUTO) 4.7 % (21.0-51.0); MEAN CORPUSCULAR HEMOGLOBIN 23.4 pg (27.0-34.0); MEAN PLATELET VOLUME 8.6 fL (7.4-11.0); NEUTROPHILS # (AUTO) 22.2 x10^3/uL (2.2-4.8); NEUTROPHILS % (AUTO) 90.5 % (42.0-75.0); PLATELET COUNT 240 X10^3/uL (150.0-450.0); RED BLOOD COUNT 4.02 X10^6/uL (3.5-5.4); RED CELL DISTRIBUTION WIDTH 17.8 % (11.6-16.5); WHITE BLOOD COUNT 24.6 X10^3/uL (3.6-10.0)
[2023-08-20 12:04] LABS: ALANINE AMINOTRANSFERASE 17 Units/L (12-78); ALBUMIN 2.7 g/dL (3.4-5.0); ALKALINE PHOSPHATASE 97 Units/L (46-116); ASPARTATE AMINO TRANSFERASE 17 Units/L (15-37); BLOOD UREA NITROGEN 17 mg/dL (7-18); CALCIUM 8.1 mg/dL (8.5-10.1); CARBON DIOXIDE 27.2 mmol/L (21-32); CHLORIDE 107 mmol/L (98-107); COR CA(FOR HYPOALB) 9.1 mg/dL (8.5-10.1); COR NA(FOR HYPERGLY) 143 mmol/L (136-145); CREATININE 0.92 mg/dL (0.55-1.02); GLUCOSE 112 mg/dL (65-99); SODIUM 143 mmol/L (136-145); TOTAL PROTEIN 5.9 g/dL (6.4-8.2); eGFR NON BLACK RACES > 60 (>60)
[2023-08-20 12:05] LABS: ANISOCYTOSIS SLIGHT; HYPOCHROMASIA 1+; MICROCYTOSIS SLIGHT; PLATELET MORPHOLOGY COMMENT NORMAL (NORMAL)
[2023-08-20] MEDS: ZOSYN VIAL 3.375 GRAMS 3.375 G in NS 100 ML IV 100 ML IV ONE (12:21)
[2023-08-20] MEDS ORDERED: ZOFRAN INJ 4 MG VIAL IVP PRN (13:04)
[2023-08-20] MEDS ORDERED: LIDODERM 5% PATCH TD PRN (13:04)
[2023-08-20] MEDS ORDERED: TYLENOL 500 MG TAB EXTRA STRENGTH PO PRN (13:04)
[2023-08-20] MEDS ORDERED: NORCO 5/325 MG TAB PO PRN (13:04)
[2023-08-20] MEDS ORDERED: NAPROSYN PO PRN (13:04)
[2023-08-20] MEDS ORDERED: PEPCID TAB 40 MG PO PRN (13:04)
[2023-08-20] MEDS: NS 1,000 ML IV 1,000 ML ONE (13:07)
[2023-08-20] MEDS: NEURONTIN CAP 400 MG PO SCH (14:24)
[2023-08-20] MEDS: NS 1,000 ML IV 1,000 ML IV SCH (14:40)
[2023-08-20] MEDS: MORPHINE SULFATE INJ 2 MG INJ IVP PRN (16:22)
--- NOTE | 2023-08-20 17:18 | EKG ---
Test Reason : sepsis Blood Pressure : */* mmHG Vent. Rate : 98 BPM Atrial Rate : 98 BPM P-R Int : 126 ms QRS Dur : 72 ms QT Int : 366 ms P-R-T Axes : 66 -12 46 degrees QTc Int : 467 ms Normal sinus rhythm Normal ECG When compared with ECG of 20-AUG-2023 10:15, (Unconfirmed) No significant change was found Confirmed by Kishor Estrada MD ([id number]) on 08/21/2023 7:37:21 AM Referred By: Confirmed By: Kishor Estrada MD
[2023-08-20] MEDS: DUONEB 0.5 MG/3 MG (3 mL) NEB SCH (17:40)
[2023-08-20] MEDS: PULMICORT NEB TX 0.5 MG NEB SCH (20:21)
[2023-08-20] MEDS: KEPPRA TAB 500 MG PO SCH (20:58)
[2023-08-20] MEDS: LIPITOR TAB 40 MG PO SCH (20:58)
[2023-08-20] MEDS: ELIQUIS PO SCH (20:58)
[2023-08-20] MEDS: SINGULAIR TAB 10 MG PO SCH (20:59)
[2023-08-20] MEDS: REQUIP PO SCH (20:59)
[2023-08-20] MEDS: CYMBALTA PO SCH (20:59)
[2023-08-20] MEDS: SOLU-Medrol 125 MG VIAL IVP SCH (20:59)
[2023-08-20] MEDS: ZOSYN VIAL 3.375 GRAMS 3.375 G in NS 100 ML IV 100 ML IV SCH (21:30)
--- NOTE | 2023-08-20 23:09 | EKG ---
Test Reason : sepsis Blood Pressure : */* mmHG Vent. Rate : 106 BPM Atrial Rate : 106 BPM P-R Int : 134 ms QRS Dur : 74 ms QT Int : 368 ms P-R-T Axes : 45 -2 73 degrees QTc Int : 488 ms Sinus tachycardia Otherwise normal ECG When compared with ECG of 20-AUG-2023 16:57, (Unconfirmed) No significant change was found Confirmed by Kishor Estrada MD ([id number]) on 08/21/2023 7:35:23 AM Referred By: Confirmed By: Kishor Estrada MD
[2023-08-21 05:28] LABS: HEMATOCRIT 22.5 % (36.0-47.0)
--- NOTE | 2023-08-21 05:31 | RAD ---
EXAM:CHEST, 1 VIEWHISTORY:dyspnea;COMPARISON: 4FINDINGS:The cardiomediastinal silhouette is stable.Similar left-sided opacities. Chronic appearing interstitial changes in the right lung. No pneumothorax or effusion.No acute osseous abnormality.IMPRESSION:Similar left-sided pneumonia.THIS IS AN ELECTRONICALLY VERIFIED FINAL REPORT08/21/2023 5:27 AM - Electronically signed by Arden Katz MD
[2023-08-21 05:33] LABS: BASOPHILS % (AUTO) 0 % (0.2-1.0); LYMPHOCYTES # (AUTO) 0.5 X10^3/uL (1.3-2.9); LYMPHOCYTES % (AUTO) 1.6 % (21.0-51.0); MEAN CORPUSCULAR HEMOGLOBIN 23.4 pg (27.0-34.0); MEAN CORPUSCULAR HGB CONC 30.5 g/dL (33.0-35.0); MEAN CORPUSCULAR VOLUME 76.6 fL (80.0-100.0); MEAN PLATELET VOLUME 9.1 fL (7.4-11.0); MONOCYTES # (AUTO) 1.1 x10^3/uL (0.3-0.8); MONOCYTES % (AUTO) 3.6 % (0.0-13.0); NEUTROPHILS # (AUTO) 27.4 x10^3/uL (2.2-4.8); NEUTROPHILS % (AUTO) 94.8 % (42.0-75.0); PLATELET COUNT 194 X10^3/uL (150.0-450.0); RED BLOOD COUNT 2.94 X10^6/uL (3.5-5.4); RED CELL DISTRIBUTION WIDTH 17.7 % (11.6-16.5); WHITE BLOOD COUNT 28.9 X10^3/uL (3.6-10.0)
[2023-08-21 05:43] LABS: ALANINE AMINOTRANSFERASE 17 Units/L (12-78); ALBUMIN 2.2 g/dL (3.4-5.0); ALKALINE PHOSPHATASE 69 Units/L (46-116); ASPARTATE AMINO TRANSFERASE 13 Units/L (15-37); BLOOD UREA NITROGEN 16 mg/dL (7-18); CALCIUM 8.4 mg/dL (8.5-10.1); CARBON DIOXIDE 22.4 mmol/L (21-32); CHLORIDE 110 mmol/L (98-107); COR CA(FOR HYPOALB) 9.8 mg/dL (8.5-10.1); COR NA(FOR HYPERGLY) 143 mmol/L (136-145); GLUCOSE 153 mg/dL (65-99); SODIUM 142 mmol/L (136-145); TOTAL PROTEIN 5.3 g/dL (6.4-8.2); eGFR NON BLACK RACES > 60 (>60)
[2023-08-21 06:08] LABS: ANISOCYTOSIS SLIGHT; BAND NEUTROPHILS % 8 % (0-10); HEMOGLOBIN 6.9 g/dL (12.0-16.0); HYPOCHROMASIA 1+; MICROCYTOSIS SLIGHT; PLATELET MORPHOLOGY COMMENT NORMAL (NORMAL)
[2023-08-21 06:09] LABS: OVALOCYTES PRESENT
[2023-08-21] MEDS ORDERED: PriLOSEC PO SCH (09:00)
[2023-08-21] MEDS ORDERED: REFLEX: PROVENTIL NEB & PulmiCORT NEB~ NEB SCH (09:00)
[2023-08-21] MEDS: CYMBALTA PO SCH (09:39)
[2023-08-21] MEDS: MAG-OX TAB PO SCH (09:39)
[2023-08-21] MEDS: LEVAQUIN PREMIX IV 750 MG 750 MG/150 ML BAG IV SCH (09:39)
[2023-08-21] MEDS: ZETIA TAB 10 MG PO SCH (09:40)
[2023-08-21] MEDS: ROCEPHIN VIAL 1 GRAM IV SCH (09:41)
--- NOTE | 2023-08-21 11:03 | DR.H&P ---
H&P History & Physical for Day of: H&P Date: 08/21/23 Chief Complaint Chief Complaint: Shortness of breath Allergies Allergies Allergy/AdvReac Type Severity Reaction Status Date / Time sulfacetamide Allergy Unknown Verified 08/20/23 09:56 Sulfa (Sulfonamide Allergy Verified 08/20/23 09:56 Antibiotics) [SULFA] History of Present Illness History of Present Illness: This is a pleasant 72-year-old white female who comes in with a several day history of worsening shortness of breath. She has a history of COPD with multiple COPD exacerbations in the past. She has been having worsening weakness and coughing up some yellow/green-colored phlegm now. She has been having chills but does not know if she has had any fever or not. A chest x-ray was done in the emergency department shows multifocal bronchopneumonia. She received IV Rocephin and then afterwards loading dose of IV Zosyn and we decided to keep her on Zosyn admitted to the floor with IV steroids, jet nebs and continue treatment with IV Zosyn. Past Medical History Past Medical History: Arthritis, Asthma, COPD, CVA, Dyslipidemia and Renal Disease Additional Medical History: PE Past Surgical History Surgical History: Abdominal Surgery, Appendectomy and Hysterectomy Family History Family Medical History: Diabetes Mellitus, Cancer, [place], Heart Failure and Hypertension Social History Does patient currently use any type of tobacco product: No Have you used tobacco products in the last 12 months: No Type of Tobacco Use: None Does any household member use tobacco: No Alcohol Use: Rarely Medications Home Medications: Home Medications Medication Instructions Recorded Confirmed Type albuterol sulfate 90 mcg/actuation 1 inh inhalation Q4HR dyspnea 08/20/23 08/20/23 History aerosol inhaler apixaban 5 mg tablet (Eliquis) 5 mg PO BID 08/20/23 08/20/23 History atorvastatin 40 mg tablet 40 mg PO QDAY 08/20/23 08/20/23 History baclofen 10 mg tablet 10 mg PO TID PRN 08/20/23 08/20/23 History desloratadine 5 mg tablet 5 mg PO QPM 08/20/23 08/20/23 History duloxetine 30 mg capsule,delayed 30 mg PO QDAY 08/20/23 08/20/23 History release duloxetine 60 mg capsule,delayed 60 mg PO QAM 08/20/23 08/20/23 History release estradiol 0.01% (0.1 mg/gram) 2 g vaginal QDAY 08/20/23 08/20/23 History vaginal cream eszopiclone 3 mg tablet 3 mg PO QPM 08/20/23 08/20/23 History ezetimibe 10 mg tablet 10 mg PO QDAY 08/20/23 08/20/23 History famotidine 20 mg tablet 40 mg PO BID PRN 08/20/23 08/20/23 History fluticasone fur. 200 mcg-umeclid 1 ea inhalation QDAY 08/20/23 08/20/23 History 62.5 mcg-vilant 25 mcg inhalat.powder (Trelegy Ellipta) gabapentin 400 mg capsule 400 mg PO TID 08/20/23 08/20/23 History hydrocodone 5 mg-acetaminophen 325 1.5 tab PO QDAY PRN 08/20/23 08/20/23 History mg tablet levetiracetam 500 mg tablet 500 mg PO BID 08/20/23 08/20/23 History lidocaine 5 % topical patch 1 patch QDAY 08/20/23 08/20/23 History magnesium oxide 400 mg (241.3 mg 400 mg PO QDAY 08/20/23 08/20/23 History magnesium) tablet montelukast 10 mg tablet 10 mg PO QAM 08/20/23 08/20/23 History naproxen 500 mg tablet 500 mg PO BID PRN 08/20/23 08/20/23 History omeprazole 20 mg capsule,delayed 20 mg PO QDAY 08/20/23 08/20/23 History release ropinirole 2 mg tablet 2 mg PO QDAY 08/20/23 08/20/23 History Labs 08/21/23 04:42 08/21/23 04:42 Labs: 08/20/23 10:35 Urine,Catheterized Urine Culture - Preliminary Laboratory WBC 28.9 X10^3/uL (3.6-10.0) H 08/21/23 04:42 RBC 2.94 X10^6/uL (3.5-5.4) L 08/21/23 04:42 Hgb 6.9 g/dL (12.0-16.0) L* D 08/21/23 04:42 Hct 22.5 % (36.0-47.0) L 08/21/23 04:42 MCV 76.6 fL (80.0-100.0) L 08/21/23 04:42 MCH 23.4 pg (27.0-34.0) L 08/21/23 04:42 MCHC 30.5 g/dL (33.0-35.0) L 08/21/23 04:42 RDW 17.7 % (11.6-16.5) H 08/21/23 04:42 Plt Count 194 X10^3/uL (150.0-450.0) 08/21/23 04:42 Plt Count Comment Adequate (ADEQUATE) 08/21/23 04:42 MPV 9.1 fL (7.4-11.0) 08/21/23 04:42 Neut % (Auto) 94.8 % (42.0-75.0) H 08/21/23 04:42 Lymph % (Auto) 1.6 % (21.0-51.0) L 08/21/23 04:42 [place] % (Auto) 3.6 % (0.0-13.0) 08/21/23 04:42 Eos % (Auto) 0.0 % (0.9-2.9) L 08/21/23 04:42 Baso % (Auto) 0 % (0.2-1.0) L 08/21/23 04:42 Neut # (Auto) 27.4 x10^3/uL (2.2-4.8) H 08/21/23 04:42 Lymph # (Auto) 0.5 X10^3/uL (1.3-2.9) L 08/21/23 04:42 [place] # (Auto) 1.1 x10^3/uL (0.3-0.8) H 08/21/23 04:42 Eos # (Auto) 0.0 x10^3/uL (0.0-0.2) 08/21/23 04:42 Baso # (Auto) 0.0 X10^3/uL (0.0-0.1) 08/21/23 04:42 Absolute Nucleated RBC 0.0 /100WBC 08/21/23 04:42 Total Counted 100 08/21/23 04:42 Neutrophils % (Manual) 86 % (39-76) H 08/21/23 04:42 Band Neutrophils % 8 % (0-10) 08/21/23 04:42 Lymphocytes % (Manual) 3 % (13-43) L 08/21/23 04:42 Monocytes % (Manual) 3 % (4-9) L 08/21/23 04:42 Plt Morphology Comment Normal (NORMAL) 08/21/23 04:42 RBC Morphology Abnormal (NORMAL) A 08/21/23 04:42 Hypochromasia 1+ A 08/21/23 04:42 Anisocytosis Slight A 08/21/23 04:42 Microcytosis Slight A 08/21/23 04:42 Ovalocytes Present 08/21/23 04:42 Sample Site Rbra 08/20/23 10:20 ABG pH 7.390 (7.35-7.45) 08/20/23 10:20 ABG pCO2 41.0 mmHg (35.0-45.0) 08/20/23 10:20 ABG pO2 71.0 mmHg (80.0-100.0) L 08/20/23 10:20 ABG HCO3 24.8 mmol/L (22-26) 08/20/23 10:20 ABG O2 Saturation 94.0 % (90-100) 08/20/23 10:20 ABG Base Excess -0.2 mmol/L (-2.0-2.0) 08/20/23 10:20 Reagan Test Pos 08/20/23 10:20 A-a Gradient 77.0 mmHg 08/20/23 10:20 FiO2 28.0 08/20/23 10:20 Blood Gas Comments Pt negro well eb 08/20/23 10:20 Sodium 142 mmol/L (136-145) 08/21/23 04:42 Corrected Sodium 143 mmol/L (136-145) 08/21/23 04:42 Potassium 4.0 mmol/L (3.5-5.1) 08/21/23 04:42 Chloride 110 mmol/L (98-107) H 08/21/23 04:42 Carbon Dioxide 22.4 mmol/L (21-32) 08/21/23 04:42 BUN 16 mg/dL (7-18) 08/21/23 04:42 Creatinine 0.70 mg/dL (0.55-1.02) 08/21/23 04:42 Est GFR (MDRD) Af Amer > 60 (>60) 08/21/23 04:42 Est GFR (MDRD) Non-Af > 60 (>60) 08/21/23 04:42 Glucose 153 mg/dL (65-99) H 08/21/23 04:42 Lactic Acid 1.8 mmol/L (0.4-2.0) 08/20/23 13:22 Calcium 8.4 mg/dL (8.5-10.1) L 08/21/23 04:42 Corrected Calcium 9.8 mg/dL (8.5-10.1) 08/21/23 04:42 Total Bilirubin 0.20 mg/dL (0.2-1.0) 08/21/23 04:42 AST 13 Units/L (15-37) L 08/21/23 04:42 ALT 17 Units/L (12-78) 08/21/23 04:42 Alkaline Phosphatase 69 Units/L (46-116) 08/21/23 04:42 Troponin I High Sens 10.9 ng/L (4.0-60.0) 08/20/23 23:20 Total Protein 5.3 g/dL (6.4-8.2) L 08/21/23 04:42 Albumin 2.2 g/dL (3.4-5.0) L 08/21/23 04:42 Globulin 3.1 g/dL (2.5-4.5) 08/21/23 04:42 Albumin/Globulin Ratio 0.7 Ratio (1.1-2.1) L 08/21/23 04:42 Specimen Type Catherized urine 08/20/23 10:35 Urine Color Yellow (YELLOW) 08/20/23 10:35 Urine Appearance Clear (CLEAR) 08/20/23 10:35 Urine pH 5.0 (5.0 - 8.0) 08/20/23 10:35 Ur Specific [place] 1.025 (1.000-1.030) 08/20/23 10:35 Urine Protein 2+ (NEGATIVE) 08/20/23 10:35 Urine Glucose (UA) Negative (NEGATIVE) 08/20/23 10:35 Urine Ketones 1+ (NEGATIVE) 08/20/23 10:35 Urine Blood Negative (NEGATIVE) 08/20/23 10:35 Urine Nitrite Negative (NEGATIVE) 08/20/23 10:35 Urine Bilirubin 1+ (NEGATIVE) 08/20/23 10:35 Urine Urobilinogen 1+ (NORMAL) 08/20/23 10:35 Ur Leukocyte Esterase 1+ (NEGATIVE) 08/20/23 10:35 Urine RBC 0-2 /HPF (0-3) 08/20/23 10:35 Urine WBC 0-2 /HPF (0-5) 08/20/23 10:35 Ur Squamous Epith Cells Few /HPF (NEGATIVE) 08/20/23 10:35 Ur Transition Epith Cell Few /HPF (NEGATIVE) 08/20/23 10:35 Amorphous Sediment 1+ /HPF (NEGATIVE) 08/20/23 10:35 Urine Bacteria 2+ /HPF (NEGATIVE) 08/20/23 10:35 Urine Mucus Many /HPF (NEGATIVE) 08/20/23 10:35 Ur Culture Indicated? Yes/culture set up 08/20/23 10:35 SARS-CoV-2 (PCR) Negative (NEGATIVE) 08/20/23 10:31 Influenza Type A (PCR) Negative (NEGATIVE) 08/20/23 10:31 Influenza Type B (PCR) Negative (NEGATIVE) 08/20/23 10:31 RSV (PCR) Negative (NEGATIVE) 08/20/23 10:31 Blood Type O POSITIVE 08/21/23 09:03 Blood Type O POSITIVE 08/21/23 09:03 Antibody Screen Negative 08/21/23 09:03 Crossmatch See Detail 08/21/23 09:03 Review of Systems Constitutional: No Symptoms Reported Eyes: No Symptoms Reported ENT: No Symptoms Reported Respiratory: Cough, Shortness of Breath, SOB with Excertion, Pleuritic Pain and Sputum Cardiovascular: denies Orthopnea or Paroxysmal Noc. Dyspnea Gastrointestinal: No Symptoms Reported Genitourinary: No Symptoms Reported Musculoskeletal: No Symptoms Reported Skin: No Symptoms Reported Neurological: No Symptoms Reported Physical Exam Vital Signs: Vital Signs Temperature 97.6 F Temperature 97.9 F Pulse Rate [Left Brachial] 112 Pulse Rate [Left Brachial] 99 Pulse Rate 67 Pulse Rate 95 Respiratory Rate 22 Respiratory Rate 20 Blood Pressure [Left Arm] 103/63 Blood Pressure [Left Arm] 97/54 O2 Sat by Pulse Oximetry 92 O2 Sat by Pulse Oximetry 92 O2 Sat by Pulse Oximetry 95 O2 Sat by Pulse Oximetry 93 Oriented: Normal, Time, Person and Place Eyes: Normal Ear: Normal Nose: Normal Throat: Normal Respiratory: Diminished Throughout and Rhonchi Throughout Cardiovascular: Normal : Normal Auscultation: Bowel Sounds: Normal Palpation: Normal Tenderness: Normal Skin: Normal Musculoskeletal: Normal Psychiatric: Normal Mood Description: Calm Affect: Normal Speech Pattern: Clear and Appropriate Assessment/Plan (1) Pneumonia: Status: Acute Plan: Monia protocol, continue IV Zosyn and add IV Levaquin at this time. Follow-up sputum cultures when available and blood cultures as well. (2) Gastroparesis: Status: None Plan: Protonix 40 mg IV twice daily. (3) Atrial fibrillation: Qualifiers: Atrial fibrillation type: unspecified Qualified Code(s): I48.91 - Unspecified atrial fibrillation Status: Chronic Plan: Continue anticoagulation with Eliquis 5 mg twice daily, discontinued as Naprosyn since patient should not be on NSAID with Eliquis. I do not see where the patient is on a beta-daryl or calcium channel daryl for her A-fib but she is status post ablation and has been doing well since the ablation. (4) Bacterial UTI: Narrative Support Text: Possible UTI on admission. Follow-up culture and sensitivity results when available. Status: Acute Plan: Continue IV Zosyn and Levaquin at this time. (5) COPD exacerbation: Status: Acute Plan: IV Solu-Medrol as well as IV Zosyn and Levaquin. DuoNebs as well as inhaled budesonide. Review H&P Reviewed: Yes Patient was examined?: Yes
[2023-08-21] MEDS: TYLENOL 325 MG TAB PO ONE ×2 (11:46→12:14)
[2023-08-21] MEDS: BENADRYL INJ 50 MG VIAL IVP ONE (11:47)
[2023-08-21] MEDS: BENADRYL INJ 50 MG VIAL ONE (12:13)
[2023-08-21] MEDS: NS 250 ML IV 250 ML IV ONE (19:54)
[2023-08-21] MEDS: PULMICORT NEB TX 0.5 MG NEB ONE (19:54)
[2023-08-21] MEDS: LIORESAL PO PRN (20:16)
[2023-08-21 21:04] LABS: HEMATOCRIT 32.8 % (36.0-47.0)
[2023-08-21 21:09] LABS: HEMOGLOBIN 10.6 g/dL (12.0-16.0)
[2023-08-21] MEDS: PROTONIX INJ 40 MG VIAL IVP SCH (21:25)
[2023-08-22 06:06] LABS: BASOPHILS % (AUTO) 0 % (0.2-1.0); HEMATOCRIT 33.4 % (36.0-47.0); HEMOGLOBIN 10.7 g/dL (12.0-16.0); LYMPHOCYTES # (AUTO) 0.5 X10^3/uL (1.3-2.9); LYMPHOCYTES % (AUTO) 1.7 % (21.0-51.0); MEAN CORPUSCULAR HEMOGLOBIN 25.4 pg (27.0-34.0); MEAN CORPUSCULAR HGB CONC 32.1 g/dL (33.0-35.0); MEAN CORPUSCULAR VOLUME 79.3 fL (80.0-100.0); MEAN PLATELET VOLUME 8.9 fL (7.4-11.0); MONOCYTES # (AUTO) 1.1 x10^3/uL (0.3-0.8); MONOCYTES % (AUTO) 3.7 % (0.0-13.0); NEUTROPHILS # (AUTO) 27.5 x10^3/uL (2.2-4.8); NEUTROPHILS % (AUTO) 94.6 % (42.0-75.0); PLATELET COUNT 176 X10^3/uL (150.0-450.0); RED BLOOD COUNT 4.21 X10^6/uL (3.5-5.4); RED CELL DISTRIBUTION WIDTH 18.7 % (11.6-16.5); WHITE BLOOD COUNT 29.1 X10^3/uL (3.6-10.0)
[2023-08-22 06:28] LABS: ANISOCYTOSIS SLIGHT; BAND NEUTROPHILS % 6 % (0-10); HYPOCHROMASIA SLIGHT; METAMYELOCYTES % 1; MICROCYTOSIS SLIGHT; PLATELET MORPHOLOGY COMMENT NORMAL (NORMAL)
[2023-08-22 06:29] LABS: ALANINE AMINOTRANSFERASE 18 Units/L (12-78); ALBUMIN 2.1 g/dL (3.4-5.0); ALKALINE PHOSPHATASE 78 Units/L (46-116); ASPARTATE AMINO TRANSFERASE 13 Units/L (15-37); BLOOD UREA NITROGEN 17 mg/dL (7-18); CALCIUM 8.6 mg/dL (8.5-10.1); CHLORIDE 110 mmol/L (98-107); COR CA(FOR HYPOALB) 10.1 mg/dL (8.5-10.1); COR NA(FOR HYPERGLY) 145 mmol/L (136-145); CREATININE 0.72 mg/dL (0.55-1.02); GLUCOSE 141 mg/dL (65-99); POTASSIUM 3.6 mmol/L (3.5-5.1); SODIUM 144 mmol/L (136-145); TOTAL PROTEIN 5.7 g/dL (6.4-8.2); eGFR NON BLACK RACES > 60 (>60)
[2023-08-22] MEDS ORDERED: CONSULT PHARMACY - POTASSIUM & MAGNESIUM XX SCH (07:00)
[2023-08-22] MEDS ORDERED: VALIUM PO PRN (08:13)
[2023-08-22] MEDS: SOLU-Medrol 40 MG VIAL IVP SCH (09:27)
[2023-08-22] MEDS: K-DUR TAB 20 MEQ PO SCH (09:28)
[2023-08-22] MEDS: LASIX IVP ONE (09:29)
--- NOTE | 2023-08-22 11:18 | CT ---
EXAM:CHEST WITH CONTRASTHISTORY:Pneumonia, hemoptysis; ASTHMA, COPD, CVA, RENAL DISEASE, SEIZURES, AFIB SX: APPY, HYST, ORTHO, TONSILS, CARDIAC ABLATION, ABD; CSPINE COMPARISON:10/13/2020TECHNIQUE:CT of the chest obtained with IV contrast. 3D MIPS images obtained and reviewed. Dose reduction techniques including Automated Exposure Control (AEC) and adjustment of mA and kV were utilized.FINDINGS:No pneumothorax. Moderate centrilobular emphysema. Small bilateral pleural effusions. Scattered ground-glass opacities and consolidation in the lungs.The heart is normal in size. No evidence of pericardial disease. Coronary and aortic calcifications. No mediastinal adenopathy. Moderate hiatal hernia with reflux in the esophagus to the thoracic inlet.No acute osseous abnormality. Multilevel degenerative changes in the visualized spine. ACDF hardware.The limited visualized portions of the upper abdomen demonstrate no acute process.IMPRESSION:Small bilateral pleural effusions with scattered ground-glass opacities and consolidation in the lungs concerning for pneumonia. Recommend follow-up CT chest in 3 months to ensure resolution.Moderate hiatal hernia with reflux in the esophagus.THIS IS AN ELECTRONICALLY VERIFIED FINAL REPORT08/22/2023 11:14 AM - Electronically signed by Arden Katz MD
[2023-08-22] MEDS ORDERED: NORCO 5/325 MG TAB PO PRN (19:45)
[2023-08-22] MEDS ORDERED: LIORESAL PO PRN (19:45)
--- NOTE | 2023-08-22 19:53 | PCM.PROG ---
Progress Note Progress Note for Day of Date of Exam: 08/22/23 Subjective Subjective: The patient had no acute problems since admission yesterday. She did receive her 2 units packed red blood cells and her hemoglobin is up to 10.7 g this morning. She did get a little short of breath after the second unit of blood so we will go ahead and give her Lasix 40 mg IV x 1 this morning. Her white blood cell count trended upwards little bit this morning but somewhat it is secondary to the IV Solu-Medrol which she has been receiving at 125 mg IV every 6 hours. I will go ahead and change her Solu-Medrol to 60 mg IV every 12 hours this morning. Will continue her on IV Levaquin and Zosyn at this time. Sputum cultures have not been done but blood cultures are negative x 2 thus far. Her O2 sat is down a little bit this morning in the low 90s compared to yesterday but this is likely secondary to the packed red blood cells that were transfused and volume expansion. We will continue her on her current treatment and recheck routine labs and, BNP and portable chest x-ray in the morning. Past Medical Family Social History Allergies: Allergies sulfacetamide Allergy (Unknown, Verified 08/20/23 09:56) Reason: Drug allergy Sulfa (Sulfonamide Antibiotics) [SULFA] Allergy (Verified 08/20/23 09:56) Review of Systems ROS: Changes notes (describe) (Increased dyspnea) Vital Signs and I&O's Vital Signs: Vital Signs Temperature 97.8 F Temperature 97.8 F Pulse Rate [Left Brachial] 98 Pulse Rate [Left Brachial] 97 Respiratory Rate 22 Respiratory Rate 20 Respiratory Rate 21 Respiratory Rate 24 Blood Pressure [Right Arm] 182/87 Blood Pressure [Right Arm] 162/77 O2 Sat by Pulse Oximetry 95 O2 Sat by Pulse Oximetry 90 Intake and Output: Intake & Output 08/20/23 08/21/23 08/22/23 08/23/23 11:59 11:59 11:59 11:59 Intake Total 1846 9398 / 7069 480 / 480 Balance 1846 878 / 1658 480 / 480 Physical Exam Oriented: Normal, Time, Person and Place Eyes: Normal Ear: Normal Nose: Normal Throat: Normal Respiratory: Generalized, Diminished and Rhonchi Cardiovascular: Normal : Normal Auscultation: Bowel Sounds: Normal Tenderness: Normal Skin: Normal Musculoskeletal: Normal Psychiatric: Normal Mood Description: Calm Affect: Normal Speech Pattern: Clear and Appropriate Laboratory and Diagnostics 08/22/23 05:25 08/22/23 05:25 Labs: 08/20/23 10:35 Urine,Catheterized Urine Culture - Final 08/20/23 11:10 Blood Blood Culture - Preliminary 08/20/23 11:05 Blood Blood Culture - Preliminary Laboratory WBC 29.1 X10^3/uL (3.6-10.0) H 08/22/23 05:25 RBC 4.21 X10^6/uL (3.5-5.4) 08/22/23 05:25 Hgb 10.7 g/dL (12.0-16.0) L 08/22/23 05:25 Hct 33.4 % (36.0-47.0) L 08/22/23 05:25 MCV 79.3 fL (80.0-100.0) L 08/22/23 05:25 MCH 25.4 pg (27.0-34.0) L 08/22/23 05:25 MCHC 32.1 g/dL (33.0-35.0) L 08/22/23 05:25 RDW 18.7 % (11.6-16.5) H 08/22/23 05:25 Plt Count 176 X10^3/uL (150.0-450.0) 08/22/23 05:25 Plt Count Comment Adequate (ADEQUATE) 08/22/23 05:25 MPV 8.9 fL (7.4-11.0) 08/22/23 05:25 Neut % (Auto) 94.6 % (42.0-75.0) H 08/22/23 05:25 Lymph % (Auto) 1.7 % (21.0-51.0) L 08/22/23 05:25 [place] % (Auto) 3.7 % (0.0-13.0) 08/22/23 05:25 Eos % (Auto) 0.0 % (0.9-2.9) L 08/22/23 05:25 Baso % (Auto) 0 % (0.2-1.0) L 08/22/23 05:25 Neut # (Auto) 27.5 x10^3/uL (2.2-4.8) H 08/22/23 05:25 Lymph # (Auto) 0.5 X10^3/uL (1.3-2.9) L 08/22/23 05:25 [place] # (Auto) 1.1 x10^3/uL (0.3-0.8) H 08/22/23 05:25 Eos # (Auto) 0.0 x10^3/uL (0.0-0.2) 08/22/23 05:25 Baso # (Auto) 0.0 X10^3/uL (0.0-0.1) 08/22/23 05:25 Absolute Nucleated RBC 0.1 /100WBC 08/22/23 05:25 Total Counted 100 08/22/23 05:25 Neutrophils % (Manual) 85 % (39-76) H 08/22/23 05:25 Band Neutrophils % 6 % (0-10) 08/22/23 05:25 Lymphocytes % (Manual) 3 % (13-43) L 08/22/23 05:25 Monocytes % (Manual) 5 % (4-9) 08/22/23 05:25 Metamyelocytes % 1 08/22/23 05:25 Plt Morphology Comment Normal (NORMAL) 08/22/23 05:25 RBC Morphology Abnormal (NORMAL) A 08/22/23 05:25 Hypochromasia Slight A 08/22/23 05:25 Anisocytosis Slight A 08/22/23 05:25 Microcytosis Slight A 08/22/23 05:25 Ovalocytes Present 08/21/23 04:42 Sample Site [facility] 08/20/23 10:20 ABG pH 7.390 (7.35-7.45) 08/20/23 10:20 ABG pCO2 41.0 mmHg (35.0-45.0) 08/20/23 10:20 ABG pO2 71.0 mmHg (80.0-100.0) L 08/20/23 10:20 ABG HCO3 24.8 mmol/L (22-26) 08/20/23 10:20 ABG O2 Saturation 94.0 % (90-100) 08/20/23 10:20 ABG Base Excess -0.2 mmol/L (-2.0-2.0) 08/20/23 10:20 Reagan Test Pos 08/20/23 10:20 A-a Gradient 77.0 mmHg 08/20/23 10:20 FiO2 28.0 08/20/23 10:20 Blood Gas Comments Pt negro well eb 08/20/23 10:20 Sodium 144 mmol/L (136-145) 08/22/23 05:25 Corrected Sodium 145 mmol/L (136-145) 08/22/23 05:25 Potassium 3.6 mmol/L (3.5-5.1) 08/22/23 05:25 Chloride 110 mmol/L (98-107) H 08/22/23 05:25 Carbon Dioxide 23.0 mmol/L (21-32) 08/22/23 05:25 BUN 17 mg/dL (7-18) 08/22/23 05:25 Creatinine 0.72 mg/dL (0.55-1.02) 08/22/23 05:25 Est GFR (MDRD) Af Amer > 60 (>60) 08/22/23 05:25 Est GFR (MDRD) Non-Af > 60 (>60) 08/22/23 05:25 Glucose 141 mg/dL (65-99) H 08/22/23 05:25 POC Glucose (mg/dL) 153 mg/dL (65-99) H 08/22/23 17:12 Lactic Acid 1.8 mmol/L (0.4-2.0) 08/20/23 13:22 Calcium 8.6 mg/dL (8.5-10.1) 08/22/23 05:25 Corrected Calcium 10.1 mg/dL (8.5-10.1) 08/22/23 05:25 Total Bilirubin 0.90 mg/dL (0.2-1.0) 08/22/23 05:25 AST 13 Units/L (15-37) L 08/22/23 05:25 ALT 18 Units/L (12-78) 08/22/23 05:25 Alkaline Phosphatase 78 Units/L (46-116) 08/22/23 05:25 Troponin I High Sens 10.9 ng/L (4.0-60.0) 08/20/23 23:20 Total Protein 5.7 g/dL (6.4-8.2) L 08/22/23 05:25 Albumin 2.1 g/dL (3.4-5.0) L 08/22/23 05:25 Globulin 3.6 g/dL (2.5-4.5) 08/22/23 05:25 Albumin/Globulin Ratio 0.6 Ratio (1.1-2.1) L 08/22/23 05:25 Specimen Type Catherized urine 08/20/23 10:35 Urine Color Yellow (YELLOW) 08/20/23 10:35 Urine Appearance Clear (CLEAR) 08/20/23 10:35 Urine pH 5.0 (5.0 - 8.0) 08/20/23 10:35 Ur Specific [place] 1.025 (1.000-1.030) 08/20/23 10:35 Urine Protein 2+ (NEGATIVE) 08/20/23 10:35 Urine Glucose (UA) Negative (NEGATIVE) 08/20/23 10:35 Urine Ketones 1+ (NEGATIVE) 08/20/23 10:35 Urine Blood Negative (NEGATIVE) 08/20/23 10:35 Urine Nitrite Negative (NEGATIVE) 08/20/23 10:35 Urine Bilirubin 1+ (NEGATIVE) 08/20/23 10:35 Urine Urobilinogen 1+ (NORMAL) 08/20/23 10:35 Ur Leukocyte Esterase 1+ (NEGATIVE) 08/20/23 10:35 Urine RBC 0-2 /HPF (0-3) 08/20/23 10:35 Urine WBC 0-2 /HPF (0-5) 08/20/23 10:35 Ur Squamous Epith Cells Few /HPF (NEGATIVE) 08/20/23 10:35 Ur Transition Epith Cell Few /HPF (NEGATIVE) 08/20/23 10:35 Amorphous Sediment 1+ /HPF (NEGATIVE) 08/20/23 10:35 Urine Bacteria 2+ /HPF (NEGATIVE) 08/20/23 10:35 Urine Mucus Many /HPF (NEGATIVE) 08/20/23 10:35 Ur Culture Indicated? Yes/culture set up 08/20/23 10:35 SARS-CoV-2 (PCR) Negative (NEGATIVE) 08/20/23 10:31 Influenza Type A (PCR) Negative (NEGATIVE) 08/20/23 10:31 Influenza Type B (PCR) Negative (NEGATIVE) 08/20/23 10:31 RSV (PCR) Negative (NEGATIVE) 04/28/24 10:31 Resp Viral Panel (PCR) See scanned report 08/20/23 13:40 Blood Type O POSITIVE 08/21/23 09:03 Blood Type O POSITIVE 08/21/23 09:03 Antibody Screen Negative 08/21/23 09:03 Crossmatch See Detail 08/21/23 09:03 Radiology Reviewed: Yes Plan (1) Pneumonia: Status: Acute Plan: Monia protocol, continue IV Zosyn and add IV Levaquin at this time. Follow-up sputum cultures when available and blood cultures as well. (2) Gastroparesis: Status: None Plan: Protonix 40 mg IV twice daily. (3) Atrial fibrillation: Status: Chronic Qualifiers: Atrial fibrillation type: unspecified Qualified Code(s): I48.91 - Unspecified atrial fibrillation Plan: Continue anticoagulation with Eliquis 5 mg twice daily, discontinued as Naprosyn since patient should not be on NSAID with Eliquis. I do not see where the patient is on a beta-daryl or calcium channel daryl for her A-fib but she is status post ablation and has been doing well since the ablation. (4) Bacterial UTI: Status: Acute Plan: Continue IV Zosyn and Levaquin at this time. (5) COPD exacerbation: Status: Acute Plan: IV Solu-Medrol as well as IV Zosyn and Levaquin. DuoNebs as well as inhaled budesonide.
[2023-08-22] MEDS ORDERED: CYMBALTA PO SCH (20:00)
[2023-08-22] MEDS ORDERED: PATIENT'S HOME MEDICATION (Fluticasone-Umeclidin-Vilanter [Trelegy Ellipta] 200-62.5-25 mc IN SCH (20:00)
[2023-08-22] MEDS ORDERED: ZETIA TAB 10 MG PO SCH (20:00)
[2023-08-22] MEDS ORDERED: KEPPRA TAB 500 MG PO SCH (21:00)
[2023-08-22] MEDS ORDERED: ELIQUIS PO SCH (21:00)
[2023-08-22] MEDS: MILK OF MAGNESIA PO SCH (21:04)
[2023-08-22] MEDS: COLACE CAP 100 MG PO SCH (21:04)
[2023-08-22] MEDS: COREG TAB 12.5 MG PO SCH (21:35)
[2023-08-22] MEDS ORDERED: NEURONTIN CAP 400 MG PO SCH (22:00)
--- NOTE | 2023-08-23 06:07 | RAD ---
EXAM:Portable chestHISTORY:Follow-up pneumoniaCOMPARISON:08/21/2023 chest x-ray, 08/22/2023 chest CTFINDINGS:Heart size is difficult to assess due to obscuration of the left heart border by increasing left pleural effusion. Bilateral interstitial and ground-glass infiltrates increasing bilaterally. No right pleural effusion. Underlying hyperinflation. Bony thorax is unremarkable.IMPRESSION:Increasing left pleural effusionIncreasing bilateral interstitial and ground-glass infiltrates when compared with the prior examinationTHIS IS AN ELECTRONICALLY VERIFIED FINAL REPORT08/23/2023 6:04 AM - Electronically signed by Arden Katz MD
[2023-08-23 06:16] LABS: BASOPHILS % (AUTO) 0.1 % (0.2-1.0); HEMATOCRIT 35.2 % (36.0-47.0); HEMOGLOBIN 11.4 g/dL (12.0-16.0); LYMPHOCYTES # (AUTO) 0.6 X10^3/uL (1.3-2.9); LYMPHOCYTES % (AUTO) 2.6 % (21.0-51.0); MEAN CORPUSCULAR HEMOGLOBIN 25.7 pg (27.0-34.0); MEAN CORPUSCULAR HGB CONC 32.3 g/dL (33.0-35.0); MEAN CORPUSCULAR VOLUME 79.6 fL (80.0-100.0); MEAN PLATELET VOLUME 9.1 fL (7.4-11.0); MONOCYTES # (AUTO) 0.9 x10^3/uL (0.3-0.8); MONOCYTES % (AUTO) 3.9 % (0.0-13.0); NEUTROPHILS # (AUTO) 21.1 x10^3/uL (2.2-4.8); NEUTROPHILS % (AUTO) 93.4 % (42.0-75.0); PLATELET COUNT 189 X10^3/uL (150.0-450.0); RED BLOOD COUNT 4.42 X10^6/uL (3.5-5.4); RED CELL DISTRIBUTION WIDTH 18.8 % (11.6-16.5); WHITE BLOOD COUNT 22.5 X10^3/uL (3.6-10.0)
[2023-08-23 06:30] LABS: ALANINE AMINOTRANSFERASE 18 Units/L (12-78); ALBUMIN 2.1 g/dL (3.4-5.0); ALKALINE PHOSPHATASE 75 Units/L (46-116); ASPARTATE AMINO TRANSFERASE 15 Units/L (15-37); BLOOD UREA NITROGEN 20 mg/dL (7-18); CALCIUM 8.6 mg/dL (8.5-10.1); CARBON DIOXIDE 28.3 mmol/L (21-32); CHLORIDE 108 mmol/L (98-107); COR CA(FOR HYPOALB) 10.1 mg/dL (8.5-10.1); COR NA(FOR HYPERGLY) 146 mmol/L (136-145); CREATININE 0.83 mg/dL (0.55-1.02); GLUCOSE 123 mg/dL (65-99); POTASSIUM 3.9 mmol/L (3.5-5.1); SODIUM 145 mmol/L (136-145); TOTAL PROTEIN 5.6 g/dL (6.4-8.2); eGFR NON BLACK RACES > 60 (>60)
[2023-08-23 06:44] LABS: BAND NEUTROPHILS % 1 % (0-10)
[2023-08-23 06:45] LABS: ANISOCYTOSIS SLIGHT; HYPOCHROMASIA SLIGHT; MICROCYTOSIS SLIGHT; PLATELET MORPHOLOGY COMMENT NORMAL (NORMAL)
[2023-08-23] MEDS: OMNIPAQUE 350 mg/mL 100 mL BTL 100 ML ONE (07:12)
[2023-08-23] MEDS: COREG TAB 25 MG PO SCH (08:46)
[2023-08-23] MEDS ORDERED: CYMBALTA PO SCH (09:00)
[2023-08-23] MEDS ORDERED: ROPINIROLE 2 MG PO SCH (09:00)
[2023-08-23] MEDS ORDERED: SINGULAIR TAB 10 MG PO SCH (09:00)
[2023-08-23] MEDS ORDERED: MAG-OX TAB PO SCH (09:00)
[2023-08-23] MEDS ORDERED: LIDODERM 5% PATCH TD SCH (09:00)
[2023-08-23] MEDS: NS 1,000 ML IV 1,000 ML IV SCH (09:27)
[2023-08-23] MEDS: LASIX IVP SCH (09:39)
[2023-08-23 18:17] VITALS: BMI 25.4
[2023-08-24] MEDS: NS 250 ML IV 25 ML IV PRN (06:00)
[2023-08-24 06:32] LABS: BASOPHILS % (AUTO) 0.1 % (0.2-1.0); HEMATOCRIT 36.5 % (36.0-47.0); HEMOGLOBIN 11.8 g/dL (12.0-16.0); LYMPHOCYTES # (AUTO) 0.6 X10^3/uL (1.3-2.9); LYMPHOCYTES % (AUTO) 4.5 % (21.0-51.0); MEAN CORPUSCULAR HEMOGLOBIN 25.7 pg (27.0-34.0); MEAN CORPUSCULAR HGB CONC 32.4 g/dL (33.0-35.0); MEAN CORPUSCULAR VOLUME 79.3 fL (80.0-100.0); MEAN PLATELET VOLUME 9.1 fL (7.4-11.0); MONOCYTES # (AUTO) 0.7 x10^3/uL (0.3-0.8); MONOCYTES % (AUTO) 5.4 % (0.0-13.0); NEUTROPHILS # (AUTO) 11.7 x10^3/uL (2.2-4.8); PLATELET COUNT 177 X10^3/uL (150.0-450.0); RED CELL DISTRIBUTION WIDTH 19.8 % (11.6-16.5)
[2023-08-24 06:55] LABS: ALANINE AMINOTRANSFERASE 15 Units/L (12-78); ALBUMIN 2.2 g/dL (3.4-5.0); ALKALINE PHOSPHATASE 67 Units/L (46-116); ASPARTATE AMINO TRANSFERASE 11 Units/L (15-37); BLOOD UREA NITROGEN 29 mg/dL (7-18); CALCIUM 8.2 mg/dL (8.5-10.1); CARBON DIOXIDE 32.9 mmol/L (21-32); CHLORIDE 103 mmol/L (98-107); COR CA(FOR HYPOALB) 9.6 mg/dL (8.5-10.1); COR NA(FOR HYPERGLY) 143 mmol/L (136-145); CREATININE 0.98 mg/dL (0.55-1.02); GLUCOSE 119 mg/dL (65-99); POTASSIUM 3.6 mmol/L (3.5-5.1); SODIUM 143 mmol/L (136-145); TOTAL PROTEIN 5.6 g/dL (6.4-8.2); eGFR NON BLACK RACES 59 (>60)
[2023-08-24] MEDS: PULMICORT NEB TX 0.5 MG NEB ONE (06:58)
[2023-08-24 07:10] LABS: METAMYELOCYTES % 2; PLATELET MORPHOLOGY COMMENT NORMAL (NORMAL)
[2023-08-24 07:11] LABS: ANISOCYTOSIS SLIGHT; HYPOCHROMASIA SLIGHT; MICROCYTOSIS SLIGHT
--- NOTE | 2023-08-24 07:55 | PCM.PROG ---
Progress Note Progress Note for Day of Date of Exam: 08/23/23 Subjective Subjective: The patient had no acute problems since admission yesterday morning. She states she is feeling better overall. She has less generalized edema since giving her the one-time dose of Lasix yesterday. This morning her chest x-ray shows she has a left pleural effusion and she continues to have bilateral opacities in the lungs consistent with pneumonia. Her white blood cell count is down to 22,000 and her BNP is elevated above 500 today. Today we will go ahead and diurese her more with IV Lasix and continue her on IV antibiotics. We will plan on rechecking routine labs as well as a chest x-ray and BNP in the a.m. Past Medical Family Social History Allergies: Allergies sulfacetamide Allergy (Unknown, Verified 08/20/23 09:56) Reason: Drug allergy Sulfa (Sulfonamide Antibiotics) [SULFA] Allergy (Verified 08/20/23 09:56) Review of Systems ROS: Changes notes (describe) (Increased dyspnea) Vital Signs and I&O's Vital Signs: Vital Signs Temperature 97.9 F Pulse Rate [Left Brachial] 69 Pulse Rate 80 Respiratory Rate 20 Blood Pressure [Right Arm] 141/64 O2 Sat by Pulse Oximetry 97 O2 Sat by Pulse Oximetry 93 Intake and Output: Intake & Output 08/21/23 08/22/23 08/23/23 08/24/23 11:59 11:59 11:59 11:59 Intake Total 1847 / 1847 3518 / 3518 880 / 880 4049 / 4049 Balance 1847 / 1847 3518 / 3518 880 / 880 4049 / 4049 Physical Exam Oriented: Normal, Time, Person and Place Eyes: Normal Ear: Normal Nose: Normal Throat: Normal Respiratory: Generalized, Diminished and Rhonchi Cardiovascular: Normal : Normal Auscultation: Bowel Sounds: Normal Tenderness: Normal Skin: Normal Musculoskeletal: Normal Psychiatric: Normal Mood Description: Calm Affect: Normal Speech Pattern: Clear and Appropriate Laboratory and Diagnostics 08/24/23 05:35 08/24/23 05:35 Labs: 08/20/23 10:35 Urine,Catheterized Urine Culture - Final 08/20/23 11:10 Blood Blood Culture - Preliminary 08/20/23 11:05 Blood Blood Culture - Preliminary Laboratory WBC 13.0 X10^3/uL (3.6-10.0) H D 08/24/23 05:35 RBC 4.60 X10^6/uL (3.5-5.4) 08/24/23 05:35 Hgb 11.8 g/dL (12.0-16.0) L 08/24/23 05:35 Hct 36.5 % (36.0-47.0) 08/24/23 05:35 MCV 79.3 fL (80.0-100.0) L 08/24/23 05:35 MCH 25.7 pg (27.0-34.0) L 08/24/23 05:35 MCHC 32.4 g/dL (33.0-35.0) L 08/24/23 05:35 RDW 19.8 % (11.6-16.5) H 08/24/23 05:35 Plt Count 177 X10^3/uL (150.0-450.0) 08/24/23 05:35 Plt Count Comment Adequate (ADEQUATE) 08/24/23 05:35 MPV 9.1 fL (7.4-11.0) 08/24/23 05:35 Neut % (Auto) 90.0 % (42.0-75.0) H 08/24/23 05:35 Lymph % (Auto) 4.5 % (21.0-51.0) L 08/24/23 05:35 [place] % (Auto) 5.4 % (0.0-13.0) 08/24/23 05:35 Eos % (Auto) 0.0 % (0.9-2.9) L 08/24/23 05:35 Baso % (Auto) 0.1 % (0.2-1.0) L 08/24/23 05:35 Neut # (Auto) 11.7 x10^3/uL (2.2-4.8) H 08/24/23 05:35 Lymph # (Auto) 0.6 X10^3/uL (1.3-2.9) L 08/24/23 05:35 [place] # (Auto) 0.7 x10^3/uL (0.3-0.8) 08/24/23 05:35 Eos # (Auto) 0.0 x10^3/uL (0.0-0.2) 08/24/23 05:35 Baso # (Auto) 0.0 X10^3/uL (0.0-0.1) 08/24/23 05:35 Absolute Nucleated RBC 0.1 /100WBC 08/24/23 05:35 Total Counted 100 08/24/23 05:35 Neutrophils % (Manual) 90 % (39-76) H 08/24/23 05:35 Band Neutrophils % 1 % (0-10) 08/23/23 05:43 Lymphocytes % (Manual) 7 % (13-43) L 08/24/23 05:35 Monocytes % (Manual) 1 % (4-9) L 08/24/23 05:35 Metamyelocytes % 2 08/24/23 05:35 Plt Morphology Comment Normal (NORMAL) 08/24/23 05:35 RBC Morphology Abnormal (NORMAL) A 08/24/23 05:35 Hypochromasia Slight A 08/24/23 05:35 Anisocytosis Slight A 08/24/23 05:35 Microcytosis Slight A 08/24/23 05:35 Ovalocytes Present 08/21/23 04:42 Sample Site Rb 08/20/23 10:20 ABG pH 7.390 (7.35-7.45) 08/20/23 10:20 ABG pCO2 41.0 mmHg (35.0-45.0) 08/20/23 10:20 ABG pO2 71.0 mmHg (80.0-100.0) L 08/20/23 10:20 ABG HCO3 24.8 mmol/L (22-26) 08/20/23 10:20 ABG O2 Saturation 94.0 % (90-100) 08/20/23 10:20 ABG Base Excess -0.2 mmol/L (-2.0-2.0) 08/20/23 10:20 [place] Test Pos 08/20/23 10:20 A-a Gradient 77.0 mmHg 08/20/23 10:20 FiO2 28.0 08/20/23 10:20 Blood Gas Comments Pt negro well eb 08/20/23 10:20 Sodium 143 mmol/L (136-145) 08/24/23 05:35 Corrected Sodium 143 mmol/L (136-145) 08/24/23 05:35 Potassium 3.6 mmol/L (3.5-5.1) 08/24/23 05:35 Chloride 103 mmol/L (98-107) 08/24/23 05:35 Carbon Dioxide 32.9 mmol/L (21-32) H 08/24/23 05:35 BUN 29 mg/dL (7-18) H 08/24/23 05:35 Creatinine 0.98 mg/dL (0.55-1.02) 08/24/23 05:35 Est GFR (MDRD) Af Amer > 60 (>60) 08/24/23 05:35 Est GFR (MDRD) Non-Af 59 (>60) 08/24/23 05:35 Glucose 119 mg/dL (65-99) H 08/24/23 05:35 POC Glucose (mg/dL) 153 mg/dL (65-99) H 08/22/23 17:12 Lactic Acid 1.8 mmol/L (0.4-2.0) 08/20/23 13:22 Calcium 8.2 mg/dL (8.5-10.1) L 08/24/23 05:35 Corrected Calcium 9.6 mg/dL (8.5-10.1) 08/24/23 05:35 Magnesium 2.3 mg/dL (2.0-2.9) 08/24/23 05:35 Total Bilirubin 0.60 mg/dL (0.2-1.0) 08/24/23 05:35 AST 11 Units/L (15-37) L 08/24/23 05:35 ALT 15 Units/L (12-78) 08/24/23 05:35 Alkaline Phosphatase 67 Units/L (46-116) 08/24/23 05:35 Troponin I High Sens 10.9 ng/L (4.0-60.0) 08/20/23 23:20 B-Natriuretic Peptide 525 pg/mL (0-79) H 08/23/23 05:43 Total Protein 5.6 g/dL (6.4-8.2) L 08/24/23 05:35 Albumin 2.2 g/dL (3.4-5.0) L 08/24/23 05:35 Globulin 3.4 g/dL (2.5-4.5) 08/24/23 05:35 Albumin/Globulin Ratio 0.6 Ratio (1.1-2.1) L 08/24/23 05:35 Specimen Type Catherized urine 08/20/23 10:35 Urine Color Yellow (YELLOW) 08/20/23 10:35 Urine Appearance Clear (CLEAR) 08/20/23 10:35 Urine pH 5.0 (5.0 - 8.0) 08/20/23 10:35 Ur Specific [place] 1.025 (1.000-1.030) 08/20/23 10:35 Urine Protein 2+ (NEGATIVE) 08/20/23 10:35 Urine Glucose (UA) Negative (NEGATIVE) 08/20/23 10:35 Urine Ketones 1+ (NEGATIVE) 08/20/23 10:35 Urine Blood Negative (NEGATIVE) 08/20/23 10:35 Urine Nitrite Negative (NEGATIVE) 08/20/23 10:35 Urine Bilirubin 1+ (NEGATIVE) 08/20/23 10:35 Urine Urobilinogen 1+ (NORMAL) 08/20/23 10:35 Ur Leukocyte Esterase 1+ (NEGATIVE) 08/20/23 10:35 Urine RBC 0-2 /HPF (0-3) 08/20/23 10:35 Urine WBC 0-2 /HPF (0-5) 08/20/23 10:35 Ur Squamous Epith Cells Few /HPF (NEGATIVE) 08/20/23 10:35 Ur Transition Epith Cell Few /HPF (NEGATIVE) 08/20/23 10:35 Amorphous Sediment 1+ /HPF (NEGATIVE) 08/20/23 10:35 Urine Bacteria 2+ /HPF (NEGATIVE) 08/20/23 10:35 Urine Mucus Many /HPF (NEGATIVE) 08/20/23 10:35 Ur Culture Indicated? Yes/culture set up 08/20/23 10:35 SARS-CoV-2 (PCR) Negative (NEGATIVE) 08/20/23 10:31 Influenza Type A (PCR) Negative (NEGATIVE) 08/20/23 10:31 Influenza Type B (PCR) Negative (NEGATIVE) 08/20/23 10:31 RSV (PCR) Negative (NEGATIVE) 08/20/23 10:31 Resp Viral Panel (PCR) See scanned report 08/20/23 13:40 Blood Type O POSITIVE 08/21/23 09:03 Blood Type O POSITIVE 08/21/23 09:03 Antibody Screen Negative 08/21/23 09:03 Crossmatch See Detail 08/21/23 09:03 Radiology Reviewed: Yes Plan (1) Pneumonia: Status: Acute Plan: Monia protocol, continue IV Zosyn and add IV Levaquin at this time. Follow-up sputum cultures when available and blood cultures as well. (2) Gastroparesis: Status: None Plan: Protonix 40 mg IV twice daily. (3) Atrial fibrillation: Status: Chronic Qualifiers: Atrial fibrillation type: unspecified Qualified Code(s): I48.91 - Unspecified atrial fibrillation Plan: Continue anticoagulation with Eliquis 5 mg twice daily, discontinued as Naprosyn since patient should not be on NSAID with Eliquis. I do not see where the patient is on a beta-daryl or calcium channel daryl for her A-fib but she is status post ablation and has been doing well since the ablation. (4) Bacterial UTI: Status: Acute Plan: Continue IV Zosyn and Levaquin at this time. (5) COPD exacerbation: Status: Acute Plan: IV Solu-Medrol as well as IV Zosyn and Levaquin. DuoNebs as well as inhaled budesonide. (6) Pleural effusion, left: Status: Acute Plan: Lasix 40 mg IV twice daily x 24 hours and recheck chest x-ray and BNP in AM. (7) Leucocytosis: Status: Inactive Plan: Improving since decreasing IV Solu-Medrol and continued IV antibiotics. Recheck CBC in AM.
[2023-08-24] MEDS ORDERED: CONSULT PHARMACY - POTASSIUM & MAGNESIUM XX SCH (08:00)
--- NOTE | 2023-08-24 08:25 | PCM.PROG ---
Progress Note Progress Note for Day of Date of Exam: 08/24/23 Subjective Subjective: The patient reports that she is feeling better again still this morning. Her breathing is still improving and she has less generalized edema again. Her white blood cell count is down to 13,000 and her hemoglobin is stable at 11.8. Her BNP is pending at this time as well as her chest x-ray. We will follow-up with results when they are back later this morning. We are planning on discharging her home tomorrow morning if she continues to improve. She already has oxygen at home which she uses 2 L per nasal cannula. I am going to start her on ferrous gluconate this morning 325 mg 1 p.o. daily for iron deficiency anemia. She does not tolerate ferrous sulfate as it causes her to have bad constipation. Past Medical Family Social History Allergies: Allergies sulfacetamide Allergy (Unknown, Verified 08/20/23 09:56) Reason: Drug allergy Sulfa (Sulfonamide Antibiotics) [SULFA] Allergy (Verified 08/20/23 09:56) Review of Systems ROS: Changes notes (describe) (Increased dyspnea) Vital Signs and I&O's Vital Signs: Vital Signs Temperature 97.9 F Pulse Rate [Left Brachial] 69 Respiratory Rate 20 Blood Pressure [Right Arm] 141/64 O2 Sat by Pulse Oximetry 97 Intake and Output: Intake & Output 08/21/23 08/22/23 08/23/23 08/24/23 11:59 11:59 11:59 11:59 Intake Total 1847 / 1847 3518 / 3518 880 / 880 4049 / 4049 Balance 1847 / 1847 3518 / 3518 880 / 880 4049 / 4049 Physical Exam Oriented: Normal, Time, Person and Place Eyes: Normal Ear: Normal Nose: Normal Throat: Normal Respiratory: Generalized, Diminished and Rhonchi Cardiovascular: Normal : Normal Auscultation: Bowel Sounds: Normal Tenderness: Normal Skin: Normal Musculoskeletal: Normal Psychiatric: Normal Mood Description: Calm Affect: Normal Speech Pattern: Clear and Appropriate Laboratory and Diagnostics 08/24/23 05:35 08/24/23 05:35 Labs: 08/20/23 10:35 Urine,Catheterized Urine Culture - Final 08/20/23 11:10 Blood Blood Culture - Preliminary 08/20/23 11:05 Blood Blood Culture - Preliminary Laboratory WBC 13.0 X10^3/uL (3.6-10.0) H D 08/24/23 05:35 RBC 4.60 X10^6/uL (3.5-5.4) 08/24/23 05:35 Hgb 11.8 g/dL (12.0-16.0) L 08/24/23 05:35 Hct 36.5 % (36.0-47.0) 08/24/23 05:35 MCV 79.3 fL (80.0-100.0) L 08/24/23 05:35 MCH 25.7 pg (27.0-34.0) L 08/24/23 05:35 MCHC 32.4 g/dL (33.0-35.0) L 08/24/23 05:35 RDW 19.8 % (11.6-16.5) H 08/24/23 05:35 Plt Count 177 X10^3/uL (150.0-450.0) 08/24/23 05:35 Plt Count Comment Adequate (ADEQUATE) 08/24/23 05:35 MPV 9.1 fL (7.4-11.0) 08/24/23 05:35 Neut % (Auto) 90.0 % (42.0-75.0) H 08/24/23 05:35 Lymph % (Auto) 4.5 % (21.0-51.0) L 08/24/23 05:35 Graves % (Auto) 5.4 % (0.0-13.0) 08/24/23 05:35 Eos % (Auto) 0.0 % (0.9-2.9) L 08/24/23 05:35 Baso % (Auto) 0.1 % (0.2-1.0) L 08/24/23 05:35 Neut # (Auto) 11.7 x10^3/uL (2.2-4.8) H 08/24/23 05:35 Lymph # (Auto) 0.6 X10^3/uL (1.3-2.9) L 08/24/23 05:35 Graves # (Auto) 0.7 x10^3/uL (0.3-0.8) 08/24/23 05:35 Eos # (Auto) 0.0 x10^3/uL (0.0-0.2) 08/24/23 05:35 Baso # (Auto) 0.0 X10^3/uL (0.0-0.1) 08/24/23 05:35 Absolute Nucleated RBC 0.1 /100WBC 08/24/23 05:35 Total Counted 100 08/24/23 05:35 Neutrophils % (Manual) 90 % (39-76) H 08/24/23 05:35 Band Neutrophils % 1 % (0-10) 08/23/23 05:43 Lymphocytes % (Manual) 7 % (13-43) L 08/24/23 05:35 Monocytes % (Manual) 1 % (4-9) L 08/24/23 05:35 Metamyelocytes % 2 08/24/23 05:35 Plt Morphology Comment Normal (NORMAL) 08/24/23 05:35 RBC Morphology Abnormal (NORMAL) A 08/24/23 05:35 Hypochromasia Slight A 08/24/23 05:35 Anisocytosis Slight A 08/24/23 05:35 Microcytosis Slight A 08/24/23 05:35 Ovalocytes Present 08/21/23 04:42 Sample Site Rbra 08/20/23 10:20 ABG pH 7.390 (7.35-7.45) 08/20/23 10:20 ABG pCO2 41.0 mmHg (35.0-45.0) 08/20/23 10:20 ABG pO2 71.0 mmHg (80.0-100.0) L 08/20/23 10:20 ABG HCO3 24.8 mmol/L (22-26) 08/20/23 10:20 ABG O2 Saturation 94.0 % (90-100) 08/20/23 10:20 ABG Base Excess -0.2 mmol/L (-2.0-2.0) 08/20/23 10:20 Reagan Test Pos 08/20/23 10:20 A-a Gradient 77.0 mmHg 08/20/23 10:20 FiO2 28.0 08/20/23 10:20 Blood Gas Comments Pt negro well eb 08/20/23 10:20 Sodium 143 mmol/L (136-145) 08/24/23 05:35 Corrected Sodium 143 mmol/L (136-145) 08/24/23 05:35 Potassium 3.6 mmol/L (3.5-5.1) 08/24/23 05:35 Chloride 103 mmol/L (98-107) 08/24/23 05:35 Carbon Dioxide 32.9 mmol/L (21-32) H 08/24/23 05:35 BUN 29 mg/dL (7-18) H 08/24/23 05:35 Creatinine 0.98 mg/dL (0.55-1.02) 08/24/23 05:35 Est GFR (MDRD) Af Amer > 60 (>60) 08/24/23 05:35 Est GFR (MDRD) Non-Af 59 (>60) 08/24/23 05:35 Glucose 119 mg/dL (65-99) H 08/24/23 05:35 POC Glucose (mg/dL) 153 mg/dL (65-99) H 08/22/23 17:12 Lactic Acid 1.8 mmol/L (0.4-2.0) 08/20/23 13:22 Calcium 8.2 mg/dL (8.5-10.1) L 08/24/23 05:35 Corrected Calcium 9.6 mg/dL (8.5-10.1) 08/24/23 05:35 Magnesium 2.3 mg/dL (2.0-2.9) 08/24/23 05:35 Total Bilirubin 0.60 mg/dL (0.2-1.0) 08/24/23 05:35 AST 11 Units/L (15-37) L 08/24/23 05:35 ALT 15 Units/L (12-78) 08/24/23 05:35 Alkaline Phosphatase 67 Units/L (46-116) 08/24/23 05:35 Troponin I High Sens 10.9 ng/L (4.0-60.0) 08/20/23 23:20 B-Natriuretic Peptide 525 pg/mL (0-79) H 08/23/23 05:43 Total Protein 5.6 g/dL (6.4-8.2) L 08/24/23 05:35 Albumin 2.2 g/dL (3.4-5.0) L 08/24/23 05:35 Globulin 3.4 g/dL (2.5-4.5) 08/24/23 05:35 Albumin/Globulin Ratio 0.6 Ratio (1.1-2.1) L 08/24/23 05:35 Specimen Type Catherized urine 08/20/23 10:35 Urine Color Yellow (YELLOW) 08/20/23 10:35 Urine Appearance Clear (CLEAR) 08/20/23 10:35 Urine pH 5.0 (5.0 - 8.0) 08/20/23 10:35 Ur Specific Mckittrick 1.025 (1.000-1.030) 08/20/23 10:35 Urine Protein 2+ (NEGATIVE) 08/20/23 10:35 Urine Glucose (UA) Negative (NEGATIVE) 08/20/23 10:35 Urine Ketones 1+ (NEGATIVE) 08/20/23 10:35 Urine Blood Negative (NEGATIVE) 08/20/23 10:35 Urine Nitrite Negative (NEGATIVE) 08/20/23 10:35 Urine Bilirubin 1+ (NEGATIVE) 08/20/23 10:35 Urine Urobilinogen 1+ (NORMAL) 08/20/23 10:35 Ur Leukocyte Esterase 1+ (NEGATIVE) 08/20/23 10:35 Urine RBC 0-2 /HPF (0-3) 08/20/23 10:35 Urine WBC 0-2 /HPF (0-5) 08/20/23 10:35 Ur Squamous Epith Cells Few /HPF (NEGATIVE) 08/20/23 10:35 Ur Transition Epith Cell Few /HPF (NEGATIVE) 08/20/23 10:35 Amorphous Sediment 1+ /HPF (NEGATIVE) 08/20/23 10:35 Urine Bacteria 2+ /HPF (NEGATIVE) 08/20/23 10:35 Urine Mucus Many /HPF (NEGATIVE) 08/20/23 10:35 Ur Culture Indicated? Yes/culture set up 08/20/23 10:35 SARS-CoV-2 (PCR) Negative (NEGATIVE) 08/20/23 10:31 Influenza Type A (PCR) Negative (NEGATIVE) 08/20/23 10:31 Influenza Type B (PCR) Negative (NEGATIVE) 08/20/23 10:31 RSV (PCR) Negative (NEGATIVE) 08/20/23 10:31 Resp Viral Panel (PCR) See scanned report 08/20/23 13:40 Blood Type O POSITIVE 08/21/23 09:03 Blood Type O POSITIVE 08/21/23 09:03 Antibody Screen Negative 08/21/23 09:03 Crossmatch See Detail 08/21/23 09:03 Plan (1) Pneumonia: Status: Acute Plan: Monia protocol, continue IV Zosyn and add IV Levaquin at this time. Follow-up sputum cultures when available and blood cultures as well. (2) Gastroparesis: Status: None Plan: Protonix 40 mg IV twice daily. (3) Atrial fibrillation: Status: Chronic Qualifiers: Atrial fibrillation type: unspecified Qualified Code(s): I48.91 - Unspecified atrial fibrillation Plan: Continue anticoagulation with Eliquis 5 mg twice daily, discontinued as Naprosyn since patient should not be on NSAID with Eliquis. I do not see where the patient is on a beta-daryl or calcium channel daryl for her A-fib but she is status post ablation and has been doing well since the ablation. (4) Bacterial UTI: Status: Acute Plan: Continue IV Zosyn and Levaquin at this time. (5) COPD exacerbation: Status: Acute Plan: IV Solu-Medrol as well as IV Zosyn and Levaquin. DuoNebs as well as inhaled budesonide. (6) Pleural effusion, left: Status: Acute Plan: Lasix 40 mg IV twice daily x 24 hours and recheck chest x-ray and BNP in AM. (7) Leucocytosis: Status: Inactive Plan: Improving since decreasing IV Solu-Medrol and continued IV antibiotics. Recheck CBC in AM. (8) Iron deficiency anemia: Status: Acute Plan: Start ferrous gluconate 3 and 25 mg 1 p.o. daily.
[2023-08-24] MEDS: K-DUR TAB 20 MEQ PO ONE (08:51)
[2023-08-24] MEDS: NYSTATIN SUSP PO SCH (09:34)
[2023-08-24] MEDS: FERROUS GLUCONATE PO SCH (09:34)
[2023-08-24] MEDS: COLACE CAP 100 MG PO SCH (09:34)
[2023-08-25 05:14] LABS: ALANINE AMINOTRANSFERASE 16 Units/L (12-78); ALBUMIN 1.9 g/dL (3.4-5.0); ALKALINE PHOSPHATASE 62 Units/L (46-116); ASPARTATE AMINO TRANSFERASE 9 Units/L (15-37); BLOOD UREA NITROGEN 21 mg/dL (7-18); CALCIUM 7.8 mg/dL (8.5-10.1); CARBON DIOXIDE 31.3 mmol/L (21-32); CHLORIDE 106 mmol/L (98-107); COR CA(FOR HYPOALB) 9.5 mg/dL (8.5-10.1); COR NA(FOR HYPERGLY) 144 mmol/L (136-145); CREATININE 0.69 mg/dL (0.55-1.02); GLUCOSE 131 mg/dL (65-99); POTASSIUM 4.3 mmol/L (3.5-5.1); SODIUM 143 mmol/L (136-145); TOTAL PROTEIN 4.9 g/dL (6.4-8.2); eGFR NON BLACK RACES > 60 (>60)
[2023-08-25 05:15] LABS: BASOPHILS % (AUTO) 0.1 % (0.2-1.0); HEMATOCRIT 35.2 % (36.0-47.0); HEMOGLOBIN 11.3 g/dL (12.0-16.0); LYMPHOCYTES # (AUTO) 0.6 X10^3/uL (1.3-2.9); LYMPHOCYTES % (AUTO) 5.2 % (21.0-51.0); MEAN CORPUSCULAR HEMOGLOBIN 25.8 pg (27.0-34.0); MEAN CORPUSCULAR HGB CONC 32.2 g/dL (33.0-35.0); MEAN PLATELET VOLUME 9.6 fL (7.4-11.0); MONOCYTES # (AUTO) 0.7 x10^3/uL (0.3-0.8); MONOCYTES % (AUTO) 5.8 % (0.0-13.0); NEUTROPHILS # (AUTO) 10.9 x10^3/uL (2.2-4.8); NEUTROPHILS % (AUTO) 88.9 % (42.0-75.0); PLATELET COUNT 169 X10^3/uL (150.0-450.0); RED CELL DISTRIBUTION WIDTH 19.8 % (11.6-16.5); WHITE BLOOD COUNT 12.2 X10^3/uL (3.6-10.0)
--- NOTE | 2023-08-25 05:20 | RAD ---
EXAM: CHEST, 1 VIEW HISTORY: Pneumonia; COMPARISON: 08/23/2023 FINDINGS: The trachea is midline. The cardiac silhouette is stable. Bilateral interstitial and ground-glass i nfiltrates improved from prior study. No pneumothorax.. The bony thorax is unremarkable. IMPRESSION: Bilateral interstitial and ground-glass infiltrates improved from previous 08/23/2023 THIS IS AN ELECTRONICALLY VERIFIED FINAL REPORT 08/25/2023 5:17 AM - Electronically signed by Shon Duque MD
[2023-08-25 05:44] LABS: METAMYELOCYTES % 2
[2023-08-25 05:45] LABS: ANISOCYTOSIS SLIGHT; PLATELET MORPHOLOGY COMMENT NORMAL (NORMAL)
[2023-08-25 08:40] VITALS: BP 139/73; PULSE 59; TEMP 97; O2SAT 97
[2023-08-25 09:14] VITALS: RESP 17
== END 2023-08-25 11:15 | disposition home or self-care (01) | DRG 194 ==
LOC: ER 09:55 → MED/SURG 12:40
PROVIDERS: ADMIT Family Medicine; ATTEND Family Medicine
DX: J90 Pleural effusion, not elsewhere classified; Z73.89 Other problems related to life management difficulty; R60.0 Localized edema; R26.89 Other abnormalities of gait and mobility; D50.8 Other iron deficiency anemias; Z20.822 Contact with and (suspected) exposure to COVID-19; N39.0 Urinary tract infection, site not specified; J18.8 Other pneumonia, unspecified organism; K31.84 Gastroparesis; E78.5 Hyperlipidemia, unspecified; R06.02 Shortness of breath; R07.89 Other chest pain; J44.1 Chronic obstructive pulmonary disease with (acute) exacerbation; R00.1 Bradycardia, unspecified; I48.91 Unspecified atrial fibrillation; R53.1 Weakness

== ENCOUNTER 2023-09-17 07:39 | Inpatient (IN) ==
[2023-09-17 07:53] VITALS: BMI 22.6
[2023-09-17 07:59] LABS: ABG HCO3 25.2 mmol/L (22-26)
[2023-09-17 08:00] LABS: ABG ALLEN TEST POS
--- NOTE | 2023-09-17 08:02 | EKG ---
Test Reason : tachycardia, short of breath, fever Blood Pressure : */* mmHG Vent. Rate : 128 BPM Atrial Rate : 128 BPM P-R Int : 114 ms QRS Dur : 80 ms QT Int : 316 ms P-R-T Axes : 46 -53 87 degrees QTc Int : 461 ms Sinus tachycardia Left axis deviation Minimal voltage criteria for LVH, may be normal variant ( Ronaldo product ) Nonspecific ST abnormality Abnormal ECG When compared with ECG of 20-AUG-2023 22:52, QRS axis shifted left Confirmed by Kishor Estrada MD ([id number]) on 09/18/2023 6:58:24 AM Referred By: Confirmed By: Kishor Estrada MD
[2023-09-17 08:15] LABS: MEAN PLATELET VOLUME 8.9 fL (7.4-11.0)
[2023-09-17 08:18] LABS: INR 1.08 (0.8-1.3)
[2023-09-17 08:20] LABS: BASOPHILS % (AUTO) 0.2 % (0.2-1.0); EOSINOPHILS % (AUTO) 0.3 % (0.9-2.9); HEMATOCRIT 44.4 % (36.0-47.0); HEMOGLOBIN 14.1 g/dL (12.0-16.0); LYMPHOCYTES # (AUTO) 0.7 X10^3/uL (1.3-2.9); LYMPHOCYTES % (AUTO) 4.9 % (21.0-51.0); MEAN CORPUSCULAR HEMOGLOBIN 26.9 pg (27.0-34.0); MEAN CORPUSCULAR HGB CONC 31.9 g/dL (33.0-35.0); MEAN CORPUSCULAR VOLUME 84.4 fL (80.0-100.0); MONOCYTES # (AUTO) 0.4 x10^3/uL (0.3-0.8); MONOCYTES % (AUTO) 2.9 % (0.0-13.0); NEUTROPHILS # (AUTO) 12.7 x10^3/uL (2.2-4.8); NEUTROPHILS % (AUTO) 91.7 % (42.0-75.0); PLATELET COUNT 172 X10^3/uL (150.0-450.0); RED BLOOD COUNT 5.26 X10^6/uL (3.5-5.4); RED CELL DISTRIBUTION WIDTH 22.9 % (11.6-16.5); WHITE BLOOD COUNT 13.8 X10^3/uL (3.6-10.0)
[2023-09-17 08:26] LABS: BILIRUBIN,URINE NEGATIVE (NEGATIVE); BLOOD/HEMOGLOBIN,URINE NEGATIVE (NEGATIVE); GLUCOSE, URINE NEGATIVE (NEGATIVE); KETONES,URINE NEGATIVE (NEGATIVE); LEUKOCYTE ESTERASE ,URINE NEGATIVE (NEGATIVE); NITRITES,URINE NEGATIVE (NEGATIVE); PROTEIN,URINE 2+ (NEGATIVE); UROBILINOGEN,URINE NORMAL (NORMAL)
[2023-09-17 08:26] LABS: ALANINE AMINOTRANSFERASE 24 Units/L (12-78); ALKALINE PHOSPHATASE 133 Units/L (46-116); ASPARTATE AMINO TRANSFERASE 15 Units/L (15-37); BLOOD UREA NITROGEN 9 mg/dL (7-18); CALCIUM 8.6 mg/dL (8.5-10.1); CARBON DIOXIDE 29.3 mmol/L (21-32); CHLORIDE 104 mmol/L (98-107); COR CA(FOR HYPOALB) 9.4 mg/dL (8.5-10.1); COR NA(FOR HYPERGLY) 140 mmol/L (136-145); CREATINE KINASE 29 Units/L (26-192); CREATININE 0.92 mg/dL (0.55-1.02); GLUCOSE 141 mg/dL (65-99); MAGNESIUM 1.5 mg/dL (2.0-2.9); SODIUM 139 mmol/L (136-145); TOTAL PROTEIN 6.4 g/dL (6.4-8.2); eGFR NON BLACK RACES > 60 (>60)
[2023-09-17 08:33] LABS: APPEARANCE,URINE CLEAR (CLEAR); COLOR,URINE YELLOW (YELLOW)
[2023-09-17 08:34] LABS: BACTERIA,URINE NEGATIVE /HPF (NEGATIVE); RBC,URINE NONE SEEN /HPF (0-3); SQUAMOUS EPITHELIAL CELL,UR MODERATE /HPF (NEGATIVE)
[2023-09-17 08:41] LABS: ANISOCYTOSIS 2+; HYPOCHROMASIA SLIGHT; PLATELET MORPHOLOGY COMMENT NORMAL (NORMAL)
--- NOTE | 2023-09-17 08:44 | DR.SOBA ---
HPI Time Seen Time Seen by Provider: 09/17/23 08:42 Primary Care Physician Primary Care Physician: Pepe Complaints Chief Complaint Doctors Comments: This patient did develop some shortness of breath overnight. The daughter states that she developed fever early this morning and complained of some shortness of breath. Stated that temperature was up to 101.4 they gave her some ibuprofen when she got here the temperature was like 99. Patient was discharged from the hospital 3 weeks ago with pneumonia. Chief Complaint:: c/o freezing, elevated temp 102 at home, took ibuprofen. c/o SOB O2 sat 89-92% on 4L NC COVID-19 Coronavirus risk:travel/contact w/high risk person: No Has patient experienced Coronavirus symptoms: No Coronavirus symptoms experienced: Shortness of Breath Source History Provided: Patient and EMS Mode of Arrival Mode of Arrival: Stretcher Timing Onset of Chief Complaint: 09/17/23 PMH PMH Past Medical History: Yes Past Medical History: Arthritis, Asthma, COPD, CVA, Dyslipidemia, GERD and Renal Disease Past Medical History Comment: COVID, blood clots Past Surgical History: Yes Surgical History: Abdominal Surgery, Appendectomy and Hysterectomy Past Surgical History Comment: rotator cuff, back, heart ablasion Family History History of Family Medical Conditions: Yes Family Medical History: Diabetes Mellitus, Cancer, [place], Heart Failure and Hypertension Social History Alcohol Use: None Do you use any recreational Drugs:: No Lives With: Family Lives Where: Home Travel Risk Coronavirus risk:travel/contact w/high risk person: No Has patient experienced Coronavirus symptoms: No Coronavirus symptoms experienced: Shortness of Breath Infectious screening Have you traveled outside the country in the last 6 months?: No Isolation: Standard ROS Review of Systems Constitutional: Other (Shortness of breath) Eyes: No Symptoms Reported ENTM: No Symptoms Reported Respiratoy: Short of Breath Cardiovascular: No Symptoms Reported Gastrointestinal/Abdominal: No Symptoms Reported Genitourinary: No Symptoms Reported Neurological: No Symptoms Reported Musculoskeletal: No Symptoms Reported Integumentary: No Symptoms Reported Hematologic/Lymphatic: No Symptoms Reported Endocrine: No Symptoms Reported Psychiatric: No Symptoms Reported PE Vital Signs Vitals: Vital Signs Temperature 99.8 F Pulse Rate 107 Pulse Rate 117 Pulse Rate 116 Pulse Rate 116 Pulse Rate 117 Pulse Rate 118 Pulse Rate 123 Pulse Rate 121 Pulse Rate 123 Pulse Rate 123 Pulse Rate 125 Pulse Rate 129 Pulse Rate 129 Pulse Rate 130 Pulse Rate 131 Pulse Rate 130 Pulse Rate 128 Pulse Rate 127 Pulse Rate 123 Pulse Rate 122 Pulse Rate 123 Pulse Rate 121 Pulse Rate 121 Pulse Rate 128 Pulse Rate 132 Pulse Rate 128 Pulse Rate 125 Pulse Rate 133 Pulse Rate 132 Pulse Rate 129 Pulse Rate 126 Pulse Rate 127 Pulse Rate 129 Respiratory Rate 21 Respiratory Rate 20 Respiratory Rate 23 Respiratory Rate 24 Respiratory Rate 23 Respiratory Rate 19 Respiratory Rate 22 Respiratory Rate 22 Respiratory Rate 23 Respiratory Rate 22 Respiratory Rate 22 Respiratory Rate 23 Respiratory Rate 32 Respiratory Rate 24 Respiratory Rate 24 Respiratory Rate 26 Respiratory Rate 23 Respiratory Rate 24 Respiratory Rate 24 Respiratory Rate 23 Respiratory Rate 23 Respiratory Rate 22 Respiratory Rate 22 Respiratory Rate 31 Respiratory Rate 38 Respiratory Rate 25 Respiratory Rate 27 Respiratory Rate 29 Respiratory Rate 39 Respiratory Rate 31 Respiratory Rate 18 Respiratory Rate 23 Blood Pressure 112/65 Blood Pressure 106/69 Blood Pressure 107/60 Blood Pressure 109/61 Blood Pressure 111/57 Blood Pressure 115/56 Blood Pressure 106/55 Blood Pressure 109/55 Blood Pressure 100/64 Blood Pressure 114/58 Blood Pressure 125/72 Blood Pressure 128/63 O2 Sat by Pulse Oximetry 96 O2 Sat by Pulse Oximetry 95 O2 Sat by Pulse Oximetry 94 O2 Sat by Pulse Oximetry 94 O2 Sat by Pulse Oximetry 94 O2 Sat by Pulse Oximetry 94 O2 Sat by Pulse Oximetry 94 O2 Sat by Pulse Oximetry 94 O2 Sat by Pulse Oximetry 94 O2 Sat by Pulse Oximetry 94 O2 Sat by Pulse Oximetry 94 O2 Sat by Pulse Oximetry 93 O2 Sat by Pulse Oximetry 91 O2 Sat by Pulse Oximetry 92 O2 Sat by Pulse Oximetry 92 O2 Sat by Pulse Oximetry 95 O2 Sat by Pulse Oximetry 95 O2 Sat by Pulse Oximetry 94 O2 Sat by Pulse Oximetry 95 O2 Sat by Pulse Oximetry 97 O2 Sat by Pulse Oximetry 97 O2 Sat by Pulse Oximetry 98 O2 Sat by Pulse Oximetry 97 O2 Sat by Pulse Oximetry 95 O2 Sat by Pulse Oximetry 92 O2 Sat by Pulse Oximetry 92 O2 Sat by Pulse Oximetry 89 O2 Sat by Pulse Oximetry 92 O2 Sat by Pulse Oximetry 91 O2 Sat by Pulse Oximetry 92 General Limitations: Physical Limitation (limited ambulation secondary to cva years ago.) General Appearance: In Distress (mild distress) Head Head Exam: Normal Inspection, Atraumatic and Normocephalic Eyes Eye exam: Normal Appearance, PERRL and EOMI ENT ENT Exam: Normal Exam, Normal Oropharynx and Normal External Ear Exam Neck Neck Exam: Normal Inspection, Full ROM and Trachea Midline Chest Chest Inspection: Normal Inspection and Symmetric Chest Wall Rise Respiratory Respiratory Exam: Other (decreased breath sounds in left lower lobe) Respiratory Exam: Left: Decreased Breath Sounds Cardiovascular Cardiovascular Exam: Tachycardia Abdominal Exam Abdominal Exam: Normal Inspection Extremities Extremities Exam: Normal Inspection and Full ROM Back Back Exam: Normal Inspection and Full ROM Neurologic Neurological Exam: Alert and Oriented X3 Psychiatric Psychiatric Exam: Depressed MDM Differential Diagnosis Differential Diagnosis: COPD, Pneumonia, Respiratory Insufficiency and URI COURSE Treatment Treatment: Patient remained relatively stable during ER visit. We did do a chest x-ray on this patient that showed she had a left middle and lower lobe pneumonia. Her magnesium level was 1.5 cardiac was negative troponin was 7.0 she did have a slightly elevated WBC of 13.8, we did ABG and with her pO2 was 49 the rest of the ABG was relatively normal besides O2 sat was 85% on 2 L. Patient was negative on on the COVID respiratory panel. Since the patient does have some shortness of breath and had a O2 of 49 and has left middle and lower lobe pneumonia patient was deemed necessary to be admitted for further t reatment. Patient was given also 400 mg mag oxide in the ER for low magnesium level. She was given first dose of Rocephin 1 g IV in the ER. She was also given a DuoNeb and Solu-Medrol 125 mg IV for history of COPD. Contact was made with Dr. Gilbert at 1400 and he excepted patient for admission for treatment of pneumonia with hypomagnesemia and hypoxia. The patient and the patient family was made aware of the intent to admit the patient and were agreeable to the admission. ROR Labs Reviewed Laboratory Results Reviewed?: Yes 09/17/23 07:55 09/17/23 07:55 Laboratory: WBC 13.8 X10^3/uL (3.6-10.0) H 09/17/23 07:55 RBC 5.26 X10^6/uL (3.5-5.4) 09/17/23 07:55 Hgb 14.1 g/dL (12.0-16.0) 09/17/23 07:55 Hct 44.4 % (36.0-47.0) 09/17/23 07:55 MCV 84.4 fL (80.0-100.0) 09/17/23 07:55 MCH 26.9 pg (27.0-34.0) L 09/17/23 07:55 MCHC 31.9 g/dL (33.0-35.0) L 09/17/23 07:55 RDW 22.9 % (11.6-16.5) H 09/17/23 07:55 Plt Count 172 X10^3/uL (150.0-450.0) 09/17/23 07:55 Plt Count Comment Adequate (ADEQUATE) 09/17/23 07:55 MPV 8.9 fL (7.4-11.0) 09/17/23 07:55 Neut % (Auto) 91.7 % (42.0-75.0) H 09/17/23 07:55 Lymph % (Auto) 4.9 % (21.0-51.0) L 09/17/23 07:55 Mora % (Auto) 2.9 % (0.0-13.0) 09/17/23 07:55 Eos % (Auto) 0.3 % (0.9-2.9) L 09/17/23 07:55 Baso % (Auto) 0.2 % (0.2-1.0) 09/17/23 07:55 Neut # (Auto) 12.7 x10^3/uL (2.2-4.8) H 09/17/23 07:55 Lymph # (Auto) 0.7 X10^3/uL (1.3-2.9) L 09/17/23 07:55 Mora # (Auto) 0.4 x10^3/uL (0.3-0.8) 09/17/23 07:55 Eos # (Auto) 0.0 x10^3/uL (0.0-0.2) 09/17/23 07:55 Baso # (Auto) 0.0 X10^3/uL (0.0-0.1) 09/17/23 07:55 Absolute Nucleated RBC 0.0 /100WBC 09/17/23 07:55 Total Counted 100 09/17/23 07:55 Neutrophils % (Manual) 91 % (39-76) H 09/17/23 07:55 Lymphocytes % (Manual) 5 % (13-43) L 09/17/23 07:55 Monocytes % (Manual) 4 % (4-9) 09/17/23 07:55 Plt Morphology Comment Normal (NORMAL) 09/17/23 07:55 RBC Morphology Abnormal (NORMAL) A 09/17/23 07:55 Hypochromasia Slight A 09/17/23 07:55 Anisocytosis 2+ A 09/17/23 07:55 PT 13.8 SECONDS (11.8-14.3) 09/17/23 07:55 INR Target Range - 09/17/23 07:55 INR 1.08 (0.8-1.3) 09/17/23 07:55 APTT 25.2 SECONDS (22.9-36.5) 09/17/23 07:55 PTT Comment - 09/17/23 07:55 Sample Site Lrad 09/17/23 07:54 ABG pH 7.430 (7.35-7.45) 09/17/23 07:54 ABG pCO2 38.0 mmHg (35.0-45.0) 09/17/23 07:54 ABG pO2 49.0 mmHg (80.0-100.0) L* 09/17/23 07:54 ABG HCO3 25.2 mmol/L (22-26) 09/17/23 07:54 ABG O2 Saturation 85.0 % (90-100) L 09/17/23 07:54 ABG Base Excess 1.0 mmol/L (-2.0-2.0) 09/17/23 07:54 Reagan Test Pos 09/17/23 07:54 A-a Gradient 103.0 mmHg 09/17/23 07:54 FiO2 28.0 09/17/23 07:54 Blood Gas Comments Pt negro well. kg/eb 09/17/23 07:54 Sodium 139 mmol/L (136-145) 09/17/23 07:55 Corrected Sodium 140 mmol/L (136-145) 09/17/23 07:55 Potassium 4.0 mmol/L (3.5-5.1) 09/17/23 07:55 Chloride 104 mmol/L (98-107) 09/17/23 07:55 Carbon Dioxide 29.3 mmol/L (21-32) 09/17/23 07:55 BUN 9 mg/dL (7-18) 09/17/23 07:55 Creatinine 0.92 mg/dL (0.55-1.02) 09/17/23 07:55 Est GFR (MDRD) Af Amer > 60 (>60) 09/17/23 07:55 Est GFR (MDRD) Non-Af > 60 (>60) 09/17/23 07:55 Glucose 141 mg/dL (65-99) H 09/17/23 07:55 Calcium 8.6 mg/dL (8.5-10.1) 09/17/23 07:55 Corrected Calcium 9.4 mg/dL (8.5-10.1) 09/17/23 07:55 Magnesium 1.5 mg/dL (2.0-2.9) L 09/17/23 07:55 Total Bilirubin 0.50 mg/dL (0.2-1.0) 09/17/23 07:55 AST 15 Units/L (15-37) 09/17/23 07:55 ALT 24 Units/L (12-78) 09/17/23 07:55 Alkaline Phosphatase 133 Units/L (46-116) H 09/17/23 07:55 Creatine Kinase 29 Units/L (26-192) 09/17/23 07:55 Troponin I High Sens 7.0 ng/L (4.0-60.0) 09/17/23 07:55 B-Natriuretic Peptide 10.1 pg/mL (0-79) 09/17/23 07:55 Total Protein 6.4 g/dL (6.4-8.2) 09/17/23 07:55 Albumin 3.0 g/dL (3.4-5.0) L 09/17/23 07:55 Globulin 3.4 g/dL (2.5-4.5) 09/17/23 07:55 Albumin/Globulin Ratio 0.9 Ratio (1.1-2.1) L 09/17/23 07:55 Specimen Type Random urine 09/17/23 08:20 Urine Color Yellow (YELLOW) 09/17/23 08:20 Urine Appearance Clear (CLEAR) 09/17/23 08:20 Urine pH 5.0 (5.0 - 8.0) 09/17/23 08:20 Ur Specific Howe 1.015 (1.000-1.030) 09/17/23 08:20 Urine Protein 2+ (NEGATIVE) 09/17/23 08:20 Urine Glucose (UA) Negative (NEGATIVE) 09/17/23 08:20 Urine Ketones Negative (NEGATIVE) 09/17/23 08:20 Urine Blood Negative (NEGATIVE) 09/17/23 08:20 Urine Nitrite Negative (NEGATIVE) 09/17/23 08:20 Urine Bilirubin Negative (NEGATIVE) 09/17/23 08:20 Urine Urobilinogen Normal (NORMAL) 09/17/23 08:20 Ur Leukocyte Esterase Negative (NEGATIVE) 09/17/23 08:20 Urine RBC None seen /HPF (0-3) 09/17/23 08:20 Urine WBC 0-2 /HPF (0-5) 09/17/23 08:20 Ur Squamous Epith Cells Moderate /HPF (NEGATIVE) 09/17/23 08:20 Urine Bacteria Negative /HPF (NEGATIVE) 09/17/23 08:20 Ur Culture Indicated? No/not indicated 09/17/23 08:20 SARS-CoV-2 (PCR) Negative (NEGATIVE) 09/17/23 08:12 Influenza Type A (PCR) Negative (NEGATIVE) 09/17/23 08:12 Influenza Type B (PCR) Negative (NEGATIVE) 09/17/23 08:12 RSV (PCR) Negative (NEGATIVE) 09/17/23 08:12 Opioid Opioid Risk Tool Age (Marquez box if 16-45): No History of Preadolescent Sexual Abuse: No Total: 0 Total Score Risk Category: Low Risk Copyright: Isaac MICHAEL predicting aberrant behaviors Discharge Plan Diagnosis Discharge Problem: Pneumonia, Hypoxia, Respiratory insufficiency, Hypomagnesemia Discharge Plan Patient Disposition: 09 ADMITTED INPATIENT Condition: Stable Orders to Discharge Patient Discharge Orders: Transfer (Routine); Ordered 09/17/23 Ordered By: Ry Barnes
[2023-09-17] MEDS: NS 1,000 ML IV 1,000 ML IV ONE (09:06)
[2023-09-17] MEDS: MAG-OX TAB PO ONE (09:46)
[2023-09-17] MEDS: ROCEPHIN VIAL 1 GRAM 1 G in NS 100 ML IV 100 ML IV ONE ×2 (11:44→11:45)
[2023-09-17] MEDS: DUONEB 0.5 MG/3 MG (3 mL) NEB ONE (11:47)
[2023-09-17] MEDS: ROCEPHIN VIAL 1 GRAM IVP ONE (11:47)
[2023-09-17] MEDS: SOLU-Medrol 125 MG VIAL IVP ONE (11:47)
[2023-09-17] MEDS: ZOSYN VIAL 3.375 GRAMS 3.375 G in NS 100 ML IV 100 ML IV SCH (14:58)
[2023-09-17] MEDS: NS 250 ML IV 25 ML IV PRN (14:58)
--- NOTE | 2023-09-17 15:30 | RAD ---
EXAM:CHESTHISTORY:Shortness of Breath; hx- asthma, copd, heart ablasionCOMPARISON:August 24, 2023.TECHNIQUE:Frontal view of the chest was submitted for interpretation.FINDINGS:The cardiomediastinal silhouette is within normal limits. Lungs show increasing airspace consolidation throughout the left lung.IMPRESSION:Increasing airspace consolidation throughout the left lung favoring pneumonia.THIS IS AN ELECTRONICALLY VERIFIED FINAL REPORT09/17/2023 3:26 PM - Electronically signed by Christiano Witt MD
[2023-09-17] MEDS: DUONEB 0.5 MG/3 MG (3 mL) NEB SCH (17:03)
[2023-09-17] MEDS: NS 1,000 ML IV 1,000 ML IV SCH (17:51)
[2023-09-17] MEDS: FERROUS GLUCONATE PO SCH (17:51)
[2023-09-17] MEDS: NS 1,000 ML IV 1,000 ML ONE (19:25)
[2023-09-17] MEDS: PULMICORT NEB TX 0.5 MG NEB ONE (19:26)
[2023-09-17] MEDS: NS 250 ML IV 250 ML IV ONE (19:26)
[2023-09-17] MEDS: PULMICORT NEB TX 0.5 MG NEB SCH (19:32)
[2023-09-17] MEDS: REQUIP PO SCH (21:46)
[2023-09-17] MEDS: COLACE CAP 100 MG PO SCH (21:47)
[2023-09-17] MEDS: KEPPRA TAB 500 MG PO SCH (21:47)
[2023-09-17] MEDS: COREG TAB 25 MG PO SCH (21:48)
[2023-09-17] MEDS: ELIQUIS PO SCH (21:48)
[2023-09-17] MEDS: LIORESAL PO PRN (21:54)
[2023-09-17] MEDS: NEURONTIN CAP 400 MG PO SCH (21:54)
[2023-09-17] MEDS: SOLU-Medrol 40 MG VIAL IVP SCH (21:55)
[2023-09-17] MEDS ORDERED: DUONEB 0.5 MG/3 MG (3 mL) NEB SCH (22:00)
[2023-09-17] MEDS: AMBIEN PO SCH (22:02)
[2023-09-18 06:13] LABS: BASOPHILS # (AUTO) 0.1 X10^3/uL (0.0-0.1); BASOPHILS % (AUTO) 0.4 % (0.2-1.0); HEMATOCRIT 35.4 % (36.0-47.0); HEMOGLOBIN 11.4 g/dL (12.0-16.0); LYMPHOCYTES # (AUTO) 0.8 X10^3/uL (1.3-2.9); LYMPHOCYTES % (AUTO) 3.7 % (21.0-51.0); MEAN CORPUSCULAR HEMOGLOBIN 27.1 pg (27.0-34.0); MEAN CORPUSCULAR HGB CONC 32.1 g/dL (33.0-35.0); MEAN CORPUSCULAR VOLUME 84.3 fL (80.0-100.0); MONOCYTES % (AUTO) 4.6 % (0.0-13.0); NEUTROPHILS # (AUTO) 19.3 x10^3/uL (2.2-4.8); NEUTROPHILS % (AUTO) 91.3 % (42.0-75.0); PLATELET COUNT 130 X10^3/uL (150.0-450.0); RED BLOOD COUNT 4.19 X10^6/uL (3.5-5.4); RED CELL DISTRIBUTION WIDTH 22.9 % (11.6-16.5); WHITE BLOOD COUNT 21.2 X10^3/uL (3.6-10.0)
[2023-09-18] MEDS: MAG-OX TAB PO SCH (06:18)
[2023-09-18 06:21] LABS: BLOOD UREA NITROGEN 13 mg/dL (7-18); CALCIUM 8.5 mg/dL (8.5-10.1); CHLORIDE 109 mmol/L (98-107); COR NA(FOR HYPERGLY) 144 mmol/L (136-145); CREATININE 0.65 mg/dL (0.55-1.02); GLUCOSE 135 mg/dL (65-99); POTASSIUM 4.2 mmol/L (3.5-5.1); SODIUM 143 mmol/L (136-145); eGFR NON BLACK RACES > 60 (>60)
[2023-09-18 06:42] LABS: ANISOCYTOSIS 2+; BAND NEUTROPHILS % 13 % (0-10); PLATELET MORPHOLOGY COMMENT NORMAL (NORMAL)
[2023-09-18] MEDS ORDERED: ROPINIROLE 2 MG PO SCH (09:00)
[2023-09-18] MEDS ORDERED: PATIENT'S HOME MEDICATION (Fluticasone-Umeclidin-Vilanter [Trelegy Ellipta] 200-62.5-25 mc IN SCH (09:00)
[2023-09-18] MEDS ORDERED: MAG-OX TAB PO SCH (09:00)
[2023-09-18] MEDS ORDERED: CYMBALTA PO SCH (09:00)
[2023-09-18] MEDS: LIPITOR TAB 40 MG PO SCH (09:09)
[2023-09-18] MEDS: ROCEPHIN VIAL 1 GRAM IVP SCH (09:09)
[2023-09-18] MEDS: CYMBALTA PO SCH (09:09)
[2023-09-18] MEDS: SINGULAIR TAB 10 MG PO SCH (09:10)
[2023-09-18] MEDS: ZETIA TAB 10 MG PO SCH (09:10)
[2023-09-18] MEDS: ZyrTEC TAB 10 MG PO SCH (09:10)
[2023-09-18] MEDS: LIDODERM 5% PATCH TD SCH (09:59)
[2023-09-18] MEDS: LEVAQUIN PREMIX IV 500 MG 500 MG/100 ML BAG IV SCH (10:54)
[2023-09-18] MEDS: SOLU-Medrol 125 MG VIAL IVP SCH (10:54)
[2023-09-18] MEDS: NORCO 5/325 MG TAB PO PRN (12:34)
--- NOTE | 2023-09-18 16:08 | RAD ---
EXAM: CHEST, 1 VIEW HISTORY: PNEUMONIA; COMPARISON: September 17, 2023 TECHNIQUE: Chest radiographic imaging, AP portable projection, 1 image FINDINGS: No cardiomegaly. Airspace disease throughout the majority of the left lung; as seen on the previous exam. No pleural effusion. No pneumothorax. No acute osseous abnormality. IMPRESSION: No significant interval acute cardiopulmonary changes. THIS IS AN ELECTRONICALLY VERIFIED FINAL REPORT 09/18/2023 4:05 PM - Electronically signed by Edmund Khalil MD
--- NOTE | 2023-09-18 16:30 | DR.H&P ---
H&P History & Physical for Day of: H&P Date: 09/18/23 Chief Complaint Chief Complaint: Fever greater than 100 F, shortness of breath with O2 sat 89 to 94% on 4 L nasal cannula, shortness of breath, and cough. History of Present Illness History of Present Illness: This patient is a pleasant 72-year-old white female with a known history of advanced COPD with a history of multiple COPD exacerbations, and a history of pneumonia. Did develop some shortness of breath overnight. At about 1:00 this morning, the patient's symptoms began. The daughter states that she developed a fever early this morning and complained of some shortness of breath. She noted that her temperature was up to 101.4. They gave her some ibuprofen, and when she got there, the temperature was 99. The patient was discharged from the hospital three weeks ago with pneumonia. A few weeks ago, I saw the patient in the office, and she felt much better. She has been doing well since her hospital discharge, but it looks like she has a new pneumonia that we need to treat. The patient started on pneumonia protocol and blood cultures x 2 have been drawn. An AIT sputum culture has been obtained and sent off; a routine sputum culture has not been collected at this time. The patient has been started on Zosyn and IV Levaquin. She did receive 1 g of Rocephin IV x 1 in the emergency department. She has also been started on DuoNebs, and her home medications have been restarted as well. The patient states she feels much better this morning. She is sitting up in bed talking to everyone and does not appear very ill at this time. We will continue her current treatment and recheck routine labs and chest X-rays again tomorrow morning. The patient did have elevated lactic acid, so we will need to follow up with her blood cultures to ensure that she is not septic. We will repeat another lactic acid per protocol today. I also see that the patient's platelet count has dropped so we will make sure that we give her IV Protonix for GI protection. It is a good sign that her BUN has not increased in regard to her creatinine level. Past Medical History Past Medical History: Arthritis, Asthma, COPD, CVA, Dyslipidemia, GERD and Renal Disease Additional Medical History: PE Past Surgical History Surgical History: Abdominal Surgery, Appendectomy and Hysterectomy Family History Family Medical History: Diabetes Mellitus, Cancer, [place], Heart Failure and Hypertension Social History Does any household member use tobacco: No Alcohol Use: None Drug Use: None Medications Home Medications: Home Medications Medication Instructions Recorded Confirmed Type albuterol sulfate 90 mcg/actuation 1 inh inhalation Q4HR dyspnea 08/20/23 09/17/23 History aerosol inhaler apixaban 5 mg tablet (Eliquis) 5 mg PO BID 08/20/23 09/17/23 History atorvastatin 40 mg tablet 40 mg PO QDAY 08/20/23 09/17/23 History baclofen 10 mg tablet 10 mg PO TID PRN 08/20/23 09/17/23 History desloratadine 5 mg tablet 5 mg PO QPM 08/20/23 09/17/23 History duloxetine 60 mg capsule,delayed 60 mg PO QAM 08/20/23 09/17/23 History release estradiol 0.01% (0.1 mg/gram) 2 g vaginal QDAY 08/20/23 09/17/23 History vaginal cream eszopiclone 3 mg tablet 3 mg PO QPM 08/20/23 09/17/23 History ezetimibe 10 mg tablet 10 mg PO QDAY 08/20/23 09/17/23 History fluticasone fur. 200 mcg-umeclid 1 ea inhalation QDAY 08/20/23 09/17/23 History 62.5 mcg-vilant 25 mcg inhalat.powder (Trelegy Ellipta) gabapentin 400 mg capsule 400 mg PO TID 08/20/23 09/17/23 History hydrocodone 5 mg-acetaminophen 325 1.5 tab PO QDAY PRN 08/20/23 09/17/23 History mg tablet levetiracetam 500 mg tablet 500 mg PO BID 08/20/23 09/17/23 History lidocaine 5 % topical patch 1 patch QDAY 08/20/23 09/17/23 History magnesium oxide 400 mg (241.3 mg 400 mg PO QDAY 08/20/23 09/17/23 History magnesium) tablet montelukast 10 mg tablet 10 mg PO QAM 08/20/23 09/17/23 History omeprazole 20 mg capsule,delayed 20 mg PO QDAY 08/20/23 09/17/23 History release ropinirole 2 mg tablet 2 mg PO QDAY 08/20/23 09/17/23 History Allergies Allergies Allergy/AdvReac Type Severity Reaction Status Date / Time sulfacetamide Allergy Unknown Verified 09/17/23 07:40 Sulfa (Sulfonamide Allergy Verified 09/17/23 07:40 Antibiotics) [SULFA] Labs 09/18/23 05:50 09/18/23 05:50 Labs: Laboratory WBC 21.2 X10^3/uL (3.6-10.0) H 09/18/23 05:50 RBC 4.19 X10^6/uL (3.5-5.4) 09/18/23 05:50 Hgb 11.4 g/dL (12.0-16.0) L D 09/18/23 05:50 Hct 35.4 % (36.0-47.0) L 09/18/23 05:50 MCV 84.3 fL (80.0-100.0) 09/18/23 05:50 MCH 27.1 pg (27.0-34.0) 09/18/23 05:50 MCHC 32.1 g/dL (33.0-35.0) L 09/18/23 05:50 RDW 22.9 % (11.6-16.5) H 09/18/23 05:50 Plt Count 130 X10^3/uL (150.0-450.0) L 09/18/23 05:50 Plt Count Comment Decreased (ADEQUATE) A 09/18/23 05:50 MPV 9.0 fL (7.4-11.0) 09/18/23 05:50 Neut % (Auto) 91.3 % (42.0-75.0) H 09/18/23 05:50 Lymph % (Auto) 3.7 % (21.0-51.0) L 09/18/23 05:50 [place] % (Auto) 4.6 % (0.0-13.0) 09/18/23 05:50 Eos % (Auto) 0.0 % (0.9-2.9) L 09/18/23 05:50 Baso % (Auto) 0.4 % (0.2-1.0) 09/18/23 05:50 Neut # (Auto) 19.3 x10^3/uL (2.2-4.8) H 09/18/23 05:50 Lymph # (Auto) 0.8 X10^3/uL (1.3-2.9) L 09/18/23 05:50 [place] # (Auto) 1.0 x10^3/uL (0.3-0.8) H 09/18/23 05:50 Eos # (Auto) 0.0 x10^3/uL (0.0-0.2) 09/18/23 05:50 Baso # (Auto) 0.1 X10^3/uL (0.0-0.1) 09/18/23 05:50 Absolute Nucleated RBC 0.0 /100WBC 09/18/23 05:50 Total Counted 100 09/18/23 05:50 Neutrophils % (Manual) 81 % (39-76) H 09/18/23 05:50 Band Neutrophils % 13 % (0-10) H 09/18/23 05:50 Lymphocytes % (Manual) 6 % (13-43) L 09/18/23 05:50 Monocytes % (Manual) 4 % (4-9) 09/17/23 07:55 Plt Morphology Comment Normal (NORMAL) 09/18/23 05:50 RBC Morphology Abnormal (NORMAL) A 09/18/23 05:50 Hypochromasia Slight A 09/17/23 07:55 Anisocytosis 2+ A 09/18/23 05:50 PT 13.8 SECONDS (11.8-14.3) 09/17/23 07:55 INR Target Range - 09/17/23 07:55 INR 1.08 (0.8-1.3) 09/17/23 07:55 APTT 25.2 SECONDS (22.9-36.5) 09/17/23 07:55 PTT Comment - 09/17/23 07:55 Sample Site Lrad 09/17/23 07:54 ABG pH 7.430 (7.35-7.45) 09/17/23 07:54 ABG pCO2 38.0 mmHg (35.0-45.0) 09/17/23 07:54 ABG pO2 49.0 mmHg (80.0-100.0) L* 09/17/23 07:54 ABG HCO3 25.2 mmol/L (22-26) 09/17/23 07:54 ABG O2 Saturation 85.0 % (90-100) L 09/17/23 07:54 ABG Base Excess 1.0 mmol/L (-2.0-2.0) 09/17/23 07:54 Reagan Test Pos 09/17/23 07:54 A-a Gradient 103.0 mmHg 09/17/23 07:54 FiO2 28.0 09/17/23 07:54 Blood Gas Comments Pt negro well. kg/eb 09/17/23 07:54 Sodium 143 mmol/L (136-145) 09/18/23 05:50 Corrected Sodium 144 mmol/L (136-145) 09/18/23 05:50 Potassium 4.2 mmol/L (3.5-5.1) 09/18/23 05:50 Chloride 109 mmol/L (98-107) H 09/18/23 05:50 Carbon Dioxide 26.0 mmol/L (21-32) 09/18/23 05:50 BUN 13 mg/dL (7-18) 09/18/23 05:50 Creatinine 0.65 mg/dL (0.55-1.02) 09/18/23 05:50 Est GFR (MDRD) Af Amer > 60 (>60) 09/18/23 05:50 Est GFR (MDRD) Non-Af > 60 (>60) 09/18/23 05:50 Glucose 135 mg/dL (65-99) H 09/18/23 05:50 Lactic Acid 3.3 mmol/L (0.4-2.0) H 09/18/23 15:15 Calcium 8.5 mg/dL (8.5-10.1) 09/18/23 05:50 Corrected Calcium 9.4 mg/dL (8.5-10.1) 09/17/23 07:55 Magnesium 1.5 mg/dL (2.0-2.9) L 09/17/23 07:55 Total Bilirubin 0.50 mg/dL (0.2-1.0) 09/17/23 07:55 AST 15 Units/L (15-37) 09/17/23 07:55 ALT 24 Units/L (12-78) 09/17/23 07:55 Alkaline Phosphatase 133 Units/L (46-116) H 09/17/23 07:55 Creatine Kinase 29 Units/L (26-192) 09/17/23 07:55 Troponin I High Sens 7.0 ng/L (4.0-60.0) 09/17/23 07:55 B-Natriuretic Peptide 10.1 pg/mL (0-79) 09/17/23 07:55 Total Protein 6.4 g/dL (6.4-8.2) 09/17/23 07:55 Albumin 3.0 g/dL (3.4-5.0) L 09/17/23 07:55 Globulin 3.4 g/dL (2.5-4.5) 09/17/23 07:55 Albumin/Globulin Ratio 0.9 Ratio (1.1-2.1) L 09/17/23 07:55 Specimen Type Random urine 09/17/23 08:20 Urine Color Yellow (YELLOW) 09/17/23 08:20 Urine Appearance Clear (CLEAR) 09/17/23 08:20 Urine pH 5.0 (5.0 - 8.0) 09/17/23 08:20 Ur Specific [place] 1.015 (1.000-1.030) 09/17/23 08:20 Urine Protein 2+ (NEGATIVE) 09/17/23 08:20 Urine Glucose (UA) Negative (NEGATIVE) 09/17/23 08:20 Urine Ketones Negative (NEGATIVE) 09/17/23 08:20 Urine Blood Negative (NEGATIVE) 09/17/23 08:20 Urine Nitrite Negative (NEGATIVE) 09/17/23 08:20 Urine Bilirubin Negative (NEGATIVE) 09/17/23 08:20 Urine Urobilinogen Normal (NORMAL) 09/17/23 08:20 Ur Leukocyte Esterase Negative (NEGATIVE) 09/17/23 08:20 Urine RBC None seen /HPF (0-3) 09/17/23 08:20 Urine WBC 0-2 /HPF (0-5) 09/17/23 08:20 Ur Squamous Epith Cells Moderate /HPF (NEGATIVE) 09/17/23 08:20 Urine Bacteria Negative /HPF (NEGATIVE) 09/17/23 08:20 Ur Culture Indicated? No/not indicated 09/17/23 08:20 SARS-CoV-2 (PCR) Negative (NEGATIVE) 09/17/23 08:12 Influenza Type A (PCR) Negative (NEGATIVE) 09/17/23 08:12 Influenza Type B (PCR) Negative (NEGATIVE) 09/17/23 08:12 RSV (PCR) Negative (NEGATIVE) 09/17/23 08:12 Review of Systems Constitutional: Fever, Chills, Sweats, Weakness and Malaise Eyes: No Symptoms Reported ENT: No Symptoms Reported Respiratory: Cough, Shortness of Breath, SOB with Excertion, Sputum and Wheezing; denies Hemoptysis or Pleuritic Pain Cardiovascular: No Symptoms Reported Gastrointestinal: No Symptoms Reported Genitourinary: No Symptoms Reported Musculoskeletal: No Symptoms Reported Skin: No Symptoms Reported Neurological: No Symptoms Reported Physical Exam Vital Signs: Vital Signs Temperature 97.9 F Pulse Rate [Right Radial] 75 Respiratory Rate 18 Respiratory Rate 18 Blood Pressure [Right Arm] 129/60 O2 Sat by Pulse Oximetry 94 Oriented: Normal, Time, Person and Place Eyes: Normal Ear: Normal Nose: Normal Throat: Normal Respiratory: Diminished Throughout, LML Diminished, LLL Diminished, LML Rhonchi and LLL Rhonchi Cardiovascular: Normal Auscultation: Bowel Sounds: Normal Palpation: Normal Tenderness: Normal Skin: Normal Musculoskeletal: Normal Psychiatric: Normal Mood Description: Calm Affect: Normal Speech Pattern: Clear and Appropriate Assessment/Plan (1) Pneumonia: Qualifiers: Laterality: left Status: Acute Plan: Follow-up AIT sputum cultures and regular sputum cultures. We will continue her on IV Zosyn and Levaquin at this time. Repeat daily chest x-rays and routine labs. (2) Hypoxia: Status: Acute Plan: Supple O2 via nasal cannula and respiratory consultation. Treat left lobe pneumonia and COPD exacerbation. (3) Respiratory insufficiency: Status: Acute Plan: Continue Trelegy Ellipta, montelukast 10 mg daily (4) Hypomagnesemia: Status: Acute Plan: Start magnesium oxide 400 mg p.o. twice daily. (5) COPD exacerbation: Status: Acute Plan: The patient received Solu-Medrol 125 mg IV x 1 in the emergency department and then was started on 40 mg IV twice daily. I will go ahead and increase her to 60 mg IV twice daily to see if we can get her hypoxia improved sooner. (6) Elevated lactic acid level: Status: Acute Plan: Repeat lactic acid per sepsis protocol. (7) Thrombocytopenia: Status: Acute Plan: Follow daily platelet level. GI protection with Protonix 40 mg IV twice daily. (8) Atrial fibrillation: Qualifiers: Atrial fibrillation type: unspecified Qualified Code(s): I48.91 - Uns pecified atrial fibrillation Status: Chronic Plan: Continue carvedilol 25 mg p.o. twice daily and Eliquis 5 mg p.o. twice daily. (9) History of CVA with residual deficit: Status: Acute (10) Chronic low back pain: Status: Acute Plan: The patient may resume her [place]. Review H&P Reviewed: Yes Patient was examined?: Yes
[2023-09-18] MEDS: PROTONIX INJ 40 MG VIAL IVP SCH (21:27)
[2023-09-19 06:24] LABS: BASOPHILS # (AUTO) 0.1 X10^3/uL (0.0-0.1); BASOPHILS % (AUTO) 0.3 % (0.2-1.0); HEMATOCRIT 35.1 % (36.0-47.0); HEMOGLOBIN 11.1 g/dL (12.0-16.0); LYMPHOCYTES # (AUTO) 0.7 X10^3/uL (1.3-2.9); LYMPHOCYTES % (AUTO) 3.3 % (21.0-51.0); MEAN CORPUSCULAR HEMOGLOBIN 26.6 pg (27.0-34.0); MEAN CORPUSCULAR HGB CONC 31.7 g/dL (33.0-35.0); MEAN CORPUSCULAR VOLUME 84.1 fL (80.0-100.0); MEAN PLATELET VOLUME 9.1 fL (7.4-11.0); MONOCYTES % (AUTO) 4.6 % (0.0-13.0); NEUTROPHILS # (AUTO) 19.3 x10^3/uL (2.2-4.8); NEUTROPHILS % (AUTO) 91.8 % (42.0-75.0); PLATELET COUNT 133 X10^3/uL (150.0-450.0); RED BLOOD COUNT 4.18 X10^6/uL (3.5-5.4); RED CELL DISTRIBUTION WIDTH 22.5 % (11.6-16.5); WHITE BLOOD COUNT 21.1 X10^3/uL (3.6-10.0)
[2023-09-19 06:33] LABS: BLOOD UREA NITROGEN 11 mg/dL (7-18); CALCIUM 8.5 mg/dL (8.5-10.1); CARBON DIOXIDE 28.2 mmol/L (21-32); CHLORIDE 110 mmol/L (98-107); COR NA(FOR HYPERGLY) 144 mmol/L (136-145); CREATININE 0.68 mg/dL (0.55-1.02); GLUCOSE 140 mg/dL (65-99); POTASSIUM 4.1 mmol/L (3.5-5.1); SODIUM 143 mmol/L (136-145); eGFR NON BLACK RACES > 60 (>60)
--- NOTE | 2023-09-19 06:49 | RAD ---
EXAM: Portable chest HISTORY: Follow-up pneumonia COMPARISON: 09/18/2023 FINDINGS: Patient is rotated to the left. Heart size is normal. Julia are normal. Aorta is calcified. Lung s generally hyperinflated. Mild pleural-parenchymal scarring right apex, stable. No acute infiltrat es right lung. Diffuse left lung infiltrate most prominent in the upper lobe unchanged. No pleural effusions identified. Bony thorax is unremarkable. IMPRESSION: No change left lung infiltrates No change hyperinflation consistent with COPD in the appropriate clinical setting THIS IS AN ELECTRONICALLY VERIFIED FINAL REPORT 09/19/2023 6:45 AM - Electronically signed by Arden Katz MD
[2023-09-19 07:02] LABS: ANISOCYTOSIS 2+; BAND NEUTROPHILS % 4 % (0-10); PLATELET MORPHOLOGY COMMENT NORMAL (NORMAL)
[2023-09-19 07:08] LABS: MAGNESIUM 1.9 mg/dL (2.0-2.9)
[2023-09-19] MEDS: SALINE 3% 15 ML NEB TX NEB ONE (09:30)
[2023-09-19] MEDS: INVanz INJ 1 GRAM VIAL 1 G in NS 100 ML IV 100 ML IV SCH (11:00)
--- NOTE | 2023-09-19 12:40 | PCM.PROG ---
Progress Note Progress Note for Day of Date of Exam: 09/19/23 Subjective Subjective: The patient is alert and awake at this time. She had no acute events yesterday or last night. I do see that her blood pressure has trended up since midnight. Her chest x-ray is unchanged from yesterday. She continues to have left lung infiltrates. There is no evidence of congestive heart failure. Her white blood cell count is essentially the same at 21,100. DC that her platelets went down somewhat so I will add some IV Protonix for GI protection. This morning we are going to discontinue the Zosyn and add IV Invanz since she has been in the hospital recently and has also been to [facility] with a lot of people around her recently for a medical visit there. This would have put her at high risk for nosocomial pneumonia. Repeat labs and chest x-ray again tomorrow morning. Past Medical Family Social History Allergies: Allergies sulfacetamide Allergy (Unknown, Verified 09/17/23 07:40) Reason: Drug allergy Sulfa (Sulfonamide Antibiotics) [SULFA] Allergy (Verified 09/17/23 07:40) Review of Systems ROS: No change since H&P Vital Signs and I&O's Vital Signs: Vital Signs Temperature 97.9 F Pulse Rate [Right Radial] 78 Respiratory Rate 18 Blood Pressure [Left Arm] 162/75 O2 Sat by Pulse Oximetry 97 Intake and Output: Intake & Output 09/17/23 09/18/23 09/19/23 09/20/23 11:59 11:59 11:59 11:59 Intake Total 3467 / 3467 3970 / 3970 Balance 3467 / 3467 3970 / 3970 Physical Exam Oriented: Normal, Time, Person and Place Eyes: Normal Ear: Normal Nose: Normal Throat: Normal Respiratory: Generalized and Rhonchi Cardiovascular: Normal Auscultation: Bowel Sounds: Normal Tenderness: Normal Skin: Normal Musculoskeletal: Normal Psychiatric: Normal Mood Description: Calm Affect: Normal Speech Pattern: Clear and Appropriate Laboratory and Diagnostics 09/19/23 06:00 09/19/23 06:00 Labs: 09/17/23 08:04 Blood Blood Culture - Preliminary 09/17/23 07:55 Blood Blood Culture - Preliminary Laboratory WBC 21.1 X10^3/uL (3.6-10.0) H 09/19/23 06:00 RBC 4.18 X10^6/uL (3.5-5.4) 09/19/23 06:00 Hgb 11.1 g/dL (12.0-16.0) L 09/19/23 06:00 Hct 35.1 % (36.0-47.0) L 09/19/23 06:00 MCV 84.1 fL (80.0-100.0) 09/19/23 06:00 MCH 26.6 pg (27.0-34.0) L 09/19/23 06:00 MCHC 31.7 g/dL (33.0-35.0) L 09/19/23 06:00 RDW 22.5 % (11.6-16.5) H 09/19/23 06:00 Plt Count 133 X10^3/uL (150.0-450.0) L 09/19/23 06:00 Plt Count Comment Decreased (ADEQUATE) A 09/19/23 06:00 MPV 9.1 fL (7.4-11.0) 09/19/23 06:00 Neut % (Auto) 91.8 % (42.0-75.0) H 09/19/23 06:00 Lymph % (Auto) 3.3 % (21.0-51.0) L 09/19/23 06:00 [place] % (Auto) 4.6 % (0.0-13.0) 09/19/23 06:00 Eos % (Auto) 0.0 % (0.9-2.9) L 09/19/23 06:00 Baso % (Auto) 0.3 % (0.2-1.0) 09/19/23 06:00 Neut # (Auto) 19.3 x10^3/uL (2.2-4.8) H 09/19/23 06:00 Lymph # (Auto) 0.7 X10^3/uL (1.3-2.9) L 09/19/23 06:00 [place] # (Auto) 1.0 x10^3/uL (0.3-0.8) H 09/19/23 06:00 Eos # (Auto) 0.0 x10^3/uL (0.0-0.2) 09/19/23 06:00 Baso # (Auto) 0.1 X10^3/uL (0.0-0.1) 09/19/23 06:00 Absolute Nucleated RBC 0.0 /100WBC 09/19/23 06:00 Total Counted 100 09/19/23 06:00 Neutrophils % (Manual) 88 % (39-76) H 09/19/23 06:00 Band Neutrophils % 4 % (0-10) 09/19/23 06:00 Lymphocytes % (Manual) 2 % (13-43) L 09/19/23 06:00 Monocytes % (Manual) 6 % (4-9) 09/19/23 06:00 Plt Morphology Comment Normal (NORMAL) 09/19/23 06:00 RBC Morphology Abnormal (NORMAL) A 09/19/23 06:00 Hypochromasia Slight A 09/17/23 07:55 Anisocytosis 2+ A 09/19/23 06:00 PT 13.8 SECONDS (11.8-14.3) 09/17/23 07:55 INR Target Range - 09/17/23 07:55 INR 1.08 (0.8-1.3) 09/17/23 07:55 APTT 25.2 SECONDS (22.9-36.5) 09/17/23 07:55 PTT Comment - 09/17/23 07:55 Sample Site Lrad 09/17/23 07:54 ABG pH 7.430 (7.35-7.45) 09/17/23 07:54 ABG pCO2 38.0 mmHg (35.0-45.0) 09/17/23 07:54 ABG pO2 49.0 mmHg (80.0-100.0) L* 09/17/23 07:54 ABG HCO3 25.2 mmol/L (22-26) 09/17/23 07:54 ABG O2 Saturation 85.0 % (90-100) L 09/17/23 07:54 ABG Base Excess 1.0 mmol/L (-2.0-2.0) 09/17/23 07:54 Reagan Test Pos 09/17/23 07:54 A-a Gradient 103.0 mmHg 09/17/23 07:54 FiO2 28.0 09/17/23 07:54 Blood Gas Comments Pt negro well. kg/eb 09/17/23 07:54 Sodium 143 mmol/L (136-145) 09/19/23 06:00 Corrected Sodium 144 mmol/L (136-145) 09/19/23 06:00 Potassium 4.1 mmol/L (3.5-5.1) 09/19/23 06:00 Chloride 110 mmol/L (98-107) H 09/19/23 06:00 Carbon Dioxide 28.2 mmol/L (21-32) 09/19/23 06:00 BUN 11 mg/dL (7-18) 09/19/23 06:00 Creatinine 0.68 mg/dL (0.55-1.02) 09/19/23 06:00 Est GFR (MDRD) Af Amer > 60 (>60) 09/19/23 06:00 Est GFR (MDRD) Non-Af > 60 (>60) 09/19/23 06:00 Glucose 140 mg/dL (65-99) H 09/19/23 06:00 Lactic Acid 1.9 mmol/L (0.4-2.0) 09/19/23 07:15 Calcium 8.5 mg/dL (8.5-10.1) 09/19/23 06:00 Corrected Calcium 9.4 mg/dL (8.5-10.1) 09/17/23 07:55 Magnesium 1.9 mg/dL (2.0-2.9) L 09/19/23 06:00 Total Bilirubin 0.50 mg/dL (0.2-1.0) 09/17/23 07:55 AST 15 Units/L (15-37) 09/17/23 07:55 ALT 24 Units/L (12-78) 09/17/23 07:55 Alkaline Phosphatase 133 Units/L (46-116) H 09/17/23 07:55 Creatine Kinase 29 Units/L (26-192) 09/17/23 07:55 Troponin I High Sens 7.0 ng/L (4.0-60.0) 09/17/23 07:55 B-Natriuretic Peptide 10.1 pg/mL (0-79) 09/17/23 07:55 Total Protein 6.4 g/dL (6.4-8.2) 09/17/23 07:55 Albumin 3.0 g/dL (3.4-5.0) L 09/17/23 07:55 Globulin 3.4 g/dL (2.5-4.5) 09/17/23 07:55 Albumin/Globulin Ratio 0.9 Ratio (1.1-2.1) L 09/17/23 07:55 Specimen Type Random urine 09/17/23 08:20 Urine Color Yellow (YELLOW) 09/17/23 08:20 Urine Appearance Clear (CLEAR) 09/17/23 08:20 Urine pH 5.0 (5.0 - 8.0) 09/17/23 08:20 Ur Specific [employer] 1.015 (1.000-1.030) 09/17/23 08:20 Urine Protein 2+ (NEGATIVE) 09/17/23 08:20 Urine Glucose (UA) Negative (NEGATIVE) 09/17/23 08:20 Urine Ketones Negative (NEGATIVE) 09/17/23 08:20 Urine Blood Negative (NEGATIVE) 09/17/23 08:20 Urine Nitrite Negative (NEGATIVE) 09/17/23 08:20 Urine Bilirubin Negative (NEGATIVE) 09/17/23 08:20 Urine Urobilinogen Normal (NORMAL) 09/17/23 08:20 Ur Leukocyte Esterase Negative (NEGATIVE) 09/17/23 08:20 Urine RBC None seen /HPF (0-3) 09/17/23 08:20 Urine WBC 0-2 /HPF (0-5) 09/17/23 08:20 Ur Squamous Epith Cells Moderate /HPF (NEGATIVE) 09/17/23 08:20 Urine Bacteria Negative /HPF (NEGATIVE) 09/17/23 08:20 Ur Culture Indicated? No/not indicated 09/17/23 08:20 SARS-CoV-2 (PCR) Negative (NEGATIVE) 09/17/23 08:12 Influenza Type A (PCR) Negative (NEGATIVE) 09/17/23 08:12 Influenza Type B (PCR) Negative (NEGATIVE) 09/17/23 08:12 RSV (PCR) Negative (NEGATIVE) 09/17/23 08:12 Radiology Reviewed: Yes Plan (1) Pneumonia: Status: Acute Qualifiers: Laterality: left Narrative Support Text: Chest x-ray is essentially unchanged today. Left lung infiltrates remain unchanged. Plan: Follow-up AIT sputum cultures and regular sputum cultures. Discontinue IV Zosyn and start Invanz 1 g IV daily. Today will be day 1 for IV Invanz. (2) Hypoxia: Status: Acute Plan: Supple O2 via nasal cannula and respiratory consultation. Treat left lobe pneumonia and COPD exacerbation. (3) Respiratory insufficiency: Status: Acute Plan: Continue Trelegy Ellipta, montelukast 10 mg daily (4) Hypomagnesemia: Status: Acute Plan: Start magnesium oxide 400 mg p.o. twice daily. (5) COPD exacerbation: Status: Acute Plan: The patient received Solu-Medrol 125 mg IV x 1 in the emergency department and then was started on 40 mg IV twice daily. I will go ahead and increase her to 60 mg IV twice daily to see if we can get her hypoxia improved sooner. (6) Elevated lactic acid level: Status: Acute Plan: Repeat lactic acid per sepsis protocol. (7) Thrombocytopenia: Status: Acute Plan: Follow daily platelet level. GI protection with Protonix 40 mg IV twice daily. (8) Atrial fibrillation: Status: Chronic Qualifiers: Atrial fibrillation type: unspecified Qualified Code(s): I48.91 - Unspe cified atrial fibrillation Plan: Continue carvedilol 25 mg p.o. twice daily and Eliquis 5 mg p.o. twice daily. (9) History of CVA with residual deficit: Status: Acute (10) Chronic low back pain: Status: Acute Plan: The patient may resume her [place].
[2023-09-19 14:19] LABS: ALANINE AMINOTRANSFERASE 21 Units/L (12-78); ALKALINE PHOSPHATASE 77 Units/L (46-116); ASPARTATE AMINO TRANSFERASE 14 Units/L (15-37); COR CA(FOR HYPOALB) 10.1 mg/dL (8.5-10.1); TOTAL PROTEIN 5.1 g/dL (6.4-8.2)
[2023-09-19 14:54] LABS: ALANINE AMINOTRANSFERASE 19 Units/L (12-78); ALBUMIN 2.1 g/dL (3.4-5.0); ALKALINE PHOSPHATASE 79 Units/L (46-116); ASPARTATE AMINO TRANSFERASE 11 Units/L (15-37); TOTAL PROTEIN 5.5 g/dL (6.4-8.2)
[2023-09-19] MEDS ORDERED: CONSULT PHARMACY - POTASSIUM & MAGNESIUM XX SCH (15:00)
[2023-09-19] MEDS: MAG-OX TAB PO SCH (20:52)
[2023-09-20 06:27] LABS: BASOPHILS % (AUTO) 0.1 % (0.2-1.0); HEMATOCRIT 36.9 % (36.0-47.0); LYMPHOCYTES # (AUTO) 0.8 X10^3/uL (1.3-2.9); LYMPHOCYTES % (AUTO) 4.3 % (21.0-51.0); MEAN CORPUSCULAR HGB CONC 32.5 g/dL (33.0-35.0); MEAN CORPUSCULAR VOLUME 83.2 fL (80.0-100.0); MEAN PLATELET VOLUME 9.1 fL (7.4-11.0); MONOCYTES # (AUTO) 0.9 x10^3/uL (0.3-0.8); MONOCYTES % (AUTO) 5.1 % (0.0-13.0); NEUTROPHILS # (AUTO) 16.9 x10^3/uL (2.2-4.8); NEUTROPHILS % (AUTO) 90.5 % (42.0-75.0); PLATELET COUNT 132 X10^3/uL (150.0-450.0); RED BLOOD COUNT 4.44 X10^6/uL (3.5-5.4); RED CELL DISTRIBUTION WIDTH 22.7 % (11.6-16.5); WHITE BLOOD COUNT 18.7 X10^3/uL (3.6-10.0)
[2023-09-20 06:54] LABS: ALANINE AMINOTRANSFERASE 23 Units/L (12-78); ALBUMIN 2.3 g/dL (3.4-5.0); ALKALINE PHOSPHATASE 85 Units/L (46-116); ASPARTATE AMINO TRANSFERASE 11 Units/L (15-37); BLOOD UREA NITROGEN 10 mg/dL (7-18); CALCIUM 8.4 mg/dL (8.5-10.1); CARBON DIOXIDE 30.1 mmol/L (21-32); CHLORIDE 107 mmol/L (98-107); COR CA(FOR HYPOALB) 9.8 mg/dL (8.5-10.1); COR NA(FOR HYPERGLY) 144 mmol/L (136-145); CREATININE 0.63 mg/dL (0.55-1.02); GLUCOSE 114 mg/dL (65-99); MAGNESIUM 1.8 mg/dL (2.0-2.9); POTASSIUM 3.9 mmol/L (3.5-5.1); SODIUM 144 mmol/L (136-145); TOTAL PROTEIN 5.9 g/dL (6.4-8.2); eGFR NON BLACK RACES > 60 (>60)
[2023-09-20 07:21] LABS: ANISOCYTOSIS 2+; BAND NEUTROPHILS % 4 % (0-10); PLATELET MORPHOLOGY COMMENT NORMAL (NORMAL)
[2023-09-20] MEDS: SALINE 3% 15 ML NEB TX ONE ×2 (08:25)
[2023-09-20 09:28] LABS: FREE T4 (FREE THYROXINE) 1.05 ng/dL (0.76-1.46); TSH (3RD GENERATION) 0.057 uIU/mL (0.358-3.74)
[2023-09-21 05:42] LABS: ALANINE AMINOTRANSFERASE 25 Units/L (12-78); ALBUMIN 2.2 g/dL (3.4-5.0); ALKALINE PHOSPHATASE 91 Units/L (46-116); ASPARTATE AMINO TRANSFERASE 25 Units/L (15-37); BLOOD UREA NITROGEN 11 mg/dL (7-18); CALCIUM 7.9 mg/dL (8.5-10.1); CARBON DIOXIDE 30.5 mmol/L (21-32); CHLORIDE 106 mmol/L (98-107); COR CA(FOR HYPOALB) 9.3 mg/dL (8.5-10.1); COR NA(FOR HYPERGLY) 144 mmol/L (136-145); CREATININE 0.56 mg/dL (0.55-1.02); GLUCOSE 145 mg/dL (65-99); MAGNESIUM 1.9 mg/dL (2.0-2.9); SODIUM 143 mmol/L (136-145); TOTAL PROTEIN 5.5 g/dL (6.4-8.2); eGFR NON BLACK RACES > 60 (>60)
[2023-09-21 05:51] LABS: POTASSIUM 3.9 mmol/L (3.5-5.1)
[2023-09-21 06:34] LABS: BASOPHILS % (AUTO) 0.1 % (0.2-1.0); HEMOGLOBIN 11.7 g/dL (12.0-16.0); LYMPHOCYTES # (AUTO) 0.7 X10^3/uL (1.3-2.9); MEAN CORPUSCULAR HEMOGLOBIN 26.9 pg (27.0-34.0); MEAN CORPUSCULAR HGB CONC 32.6 g/dL (33.0-35.0); MEAN CORPUSCULAR VOLUME 82.7 fL (80.0-100.0); MEAN PLATELET VOLUME 9.6 fL (7.4-11.0); MONOCYTES # (AUTO) 0.8 x10^3/uL (0.3-0.8); MONOCYTES % (AUTO) 6.9 % (0.0-13.0); NEUTROPHILS # (AUTO) 10.5 x10^3/uL (2.2-4.8); PLATELET COUNT 139 X10^3/uL (150.0-450.0); RED BLOOD COUNT 4.35 X10^6/uL (3.5-5.4); RED CELL DISTRIBUTION WIDTH 22.8 % (11.6-16.5); WHITE BLOOD COUNT 12.1 X10^3/uL (3.6-10.0)
[2023-09-21] MEDS ORDERED: CONSULT PHARMACY - POTASSIUM & MAGNESIUM XX SCH ×2 (07:00)
[2023-09-21 07:08] LABS: ANISOCYTOSIS 2+; HYPOCHROMASIA SLIGHT; PLATELET MORPHOLOGY COMMENT NORMAL (NORMAL)
--- NOTE | 2023-09-21 07:52 | PCM.PROG ---
Progress Note Progress Note for Day of Date of Exam: 09/20/23 Subjective Subjective: The patient is alert and awake at this time. She had no acute events overnight or this morning. Her readings are better she states. We will recheck a chest x-ray again tomorrow morning. She did not fall her blood pressure has been elevated Past Medical Family Social History Allergies: Allergies sulfacetamide Allergy (Unknown, Verified 09/17/23 07:40) Reason: Drug allergy Sulfa (Sulfonamide Antibiotics) [SULFA] Allergy (Verified 09/17/23 07:40) Review of Systems ROS: No change since H&P Vital Signs and I&O's Vital Signs: Vital Signs Temperature 97.7 F Temperature 97.7 F Temperature 97.8 F Pulse Rate [Right Radial] 62 Pulse Rate [Right Radial] 77 Pulse Rate [Right Radial] 68 Respiratory Rate 20 Respiratory Rate 21 Respiratory Rate 18 Blood Pressure [Right Arm] 177/79 Blood Pressure [Right Arm] 122/61 Blood Pressure [Right Arm] 171/78 O2 Sat by Pulse Oximetry 95 O2 Sat by Pulse Oximetry 95 O2 Sat by Pulse Oximetry 96 Intake and Output: Intake & Output 09/18/23 09/19/23 09/20/23 09/21/23 11:59 11:59 11:59 11:59 Intake Total 3467 / 3467 3970 / 3970 3845 / 3845 3372 / 3372 Balance 3467 / 3467 3970 / 3970 3845 / 3845 3372 / 3372 Physical Exam Oriented: Normal, Time, Person and Place Eyes: Normal Ear: Normal Nose: Normal Throat: Normal Respiratory: Generalized and Rhonchi Cardiovascular: Normal Auscultation: Bowel Sounds: Normal Tenderness: Normal Skin: Normal Musculoskeletal: Normal Psychiatric: Normal Mood Description: Calm Affect: Normal Speech Pattern: Clear and Appropriate Laboratory and Diagnostics 09/21/23 06:05 09/21/23 06:05 Labs: 09/19/23 10:15 Sputum - Expectorated Sputum Sputum Culture - Preliminary 09/19/23 10:15 Sputum - Expectorated Sputum - Final 09/17/23 08:04 Blood Blood Culture - Preliminary 09/17/23 07:55 Blood Blood Culture - Preliminary Laboratory WBC 12.1 X10^3/uL (3.6-10.0) H 09/21/23 06:05 RBC 4.35 X10^6/uL (3.5-5.4) 09/21/23 06:05 Hgb 11.7 g/dL (12.0-16.0) L 09/21/23 06:05 Hct 36.0 % (36.0-47.0) 09/21/23 06:05 MCV 82.7 fL (80.0-100.0) 09/21/23 06:05 MCH 26.9 pg (27.0-34.0) L 09/21/23 06:05 MCHC 32.6 g/dL (33.0-35.0) L 09/21/23 06:05 RDW 22.8 % (11.6-16.5) H 09/21/23 06:05 Plt Count 139 X10^3/uL (150.0-450.0) L 09/21/23 06:05 Plt Count Comment Decreased (ADEQUATE) A 09/21/23 06:05 MPV 9.6 fL (7.4-11.0) 09/21/23 06:05 Neut % (Auto) 87.0 % (42.0-75.0) H 09/21/23 06:05 Lymph % (Auto) 6.0 % (21.0-51.0) L 09/21/23 06:05 [place] % (Auto) 6.9 % (0.0-13.0) 09/21/23 06:05 Eos % (Auto) 0.0 % (0.9-2.9) L 09/21/23 06:05 Baso % (Auto) 0.1 % (0.2-1.0) L 09/21/23 06:05 Neut # (Auto) 10.5 x10^3/uL (2.2-4.8) H 09/21/23 06:05 Lymph # (Auto) 0.7 X10^3/uL (1.3-2.9) L 09/21/23 06:05 [place] # (Auto) 0.8 x10^3/uL (0.3-0.8) 09/21/23 06:05 Eos # (Auto) 0.0 x10^3/uL (0.0-0.2) 09/21/23 06:05 Baso # (Auto) 0.0 X10^3/uL (0.0-0.1) 09/21/23 06:05 Absolute Nucleated RBC 0.1 /100WBC 09/21/23 06:05 Total Counted 100 09/21/23 06:05 Neutrophils % (Manual) 82 % (39-76) H 09/21/23 06:05 Band Neutrophils % 4 % (0-10) 09/20/23 06:05 Lymphocytes % (Manual) 14 % (13-43) 09/21/23 06:05 Monocytes % (Manual) 4 % (4-9) 09/21/23 06:05 Plt Morphology Comment Normal (NORMAL) 09/21/23 06:05 RBC Morphology Abnormal (NORMAL) A 09/21/23 06:05 Hypochromasia Slight A 09/21/23 06:05 Anisocytosis 2+ A 09/21/23 06:05 PT 13.8 SECONDS (11.8-14.3) 09/17/23 07:55 INR Target Range - 09/17/23 07:55 INR 1.08 (0.8-1.3) 09/17/23 07:55 APTT 25.2 SECONDS (22.9-36.5) 09/17/23 07:55 PTT Comment - 09/17/23 07:55 Sample Site Lrad 09/17/23 07:54 ABG pH 7.430 (7.35-7.45) 09/17/23 07:54 ABG pCO2 38.0 mmHg (35.0-45.0) 09/17/23 07:54 ABG pO2 49.0 mmHg (80.0-100.0) L* 09/17/23 07:54 ABG HCO3 25.2 mmol/L (22-26) 09/17/23 07:54 ABG O2 Saturation 85.0 % (90-100) L 09/17/23 07:54 ABG Base Excess 1.0 mmol/L (-2.0-2.0) 09/17/23 07:54 Reagan Test Pos 09/17/23 07:54 A-a Gradient 103.0 mmHg 09/17/23 07:54 FiO2 28.0 09/17/23 07:54 Blood Gas Comments Pt negro well. kg/eb 09/17/23 07:54 Sodium 143 mmol/L (136-145) 09/21/23 06:05 Corrected Sodium 144 mmol/L (136-145) 09/21/23 06:05 Potassium 3.9 mmol/L (3.5-5.1) 09/21/23 06:05 Chloride 106 mmol/L (98-107) 09/21/23 06:05 Carbon Dioxide 30.5 mmol/L (21-32) 09/21/23 06:05 BUN 11 mg/dL (7-18) 09/21/23 06:05 Creatinine 0.56 mg/dL (0.55-1.02) 09/21/23 06:05 Est GFR (MDRD) Af Amer > 60 (>60) 09/21/23 06:05 Est GFR (MDRD) Non-Af > 60 (>60) 09/21/23 06:05 Glucose 145 mg/dL (65-99) H 09/21/23 06:05 Lactic Acid 1.9 mmol/L (0.4-2.0) 09/19/23 07:15 Calcium 7.9 mg/dL (8.5-10.1) L 09/21/23 06:05 Corrected Calcium 9.3 mg/dL (8.5-10.1) 09/21/23 06:05 Magnesium 1.9 mg/dL (2.0-2.9) L 09/21/23 06:05 Total Bilirubin 0.30 mg/dL (0.2-1.0) 09/21/23 06:05 AST 25 Units/L (15-37) 09/21/23 06:05 ALT 25 Units/L (12-78) 09/21/23 06:05 Alkaline Phosphatase 91 Units/L (46-116) 09/21/23 06:05 Creatine Kinase 29 Units/L (26-192) 09/17/23 07:55 Troponin I High Sens 7.0 ng/L (4.0-60.0) 09/17/23 07:55 B-Natriuretic Peptide 10.1 pg/mL (0-79) 09/17/23 07:55 Total Protein 5.5 g/dL (6.4-8.2) L 09/21/23 06:05 Albumin 2.2 g/dL (3.4-5.0) L 09/21/23 06:05 Globulin 3.3 g/dL (2.5-4.5) 09/21/23 06:05 Albumin/Globulin Ratio 0.7 Ratio (1.1-2.1) L 09/21/23 06:05 Free T4 1.05 ng/dL (0.76-1.46) 09/20/23 06:05 TSH 3rd Generation 0.057 uIU/mL (0.358-3.74) L 09/20/23 06:05 Specimen Type Random urine 09/17/23 08:20 Urine Color Yellow (YELLOW) 09/17/23 08:20 Urine Appearance Clear (CLEAR) 09/17/23 08:20 Urine pH 5.0 (5.0 - 8.0) 09/17/23 08:20 Ur Specific [place] 1.015 (1.000-1.030) 09/17/23 08:20 Urine Protein 2+ (NEGATIVE) 09/17/23 08:20 Urine Glucose (UA) Negative (NEGATIVE) 09/17/23 08:20 Urine Ketones Negative (NEGATIVE) 09/17/23 08:20 Urine Blood Negative (NEGATIVE) 09/17/23 08:20 Urine Nitrite Negative (NEGATIVE) 09/17/23 08:20 Urine Bilirubin Negative (NEGATIVE) 09/17/23 08:20 Urine Urobilinogen Normal (NORMAL) 09/17/23 08:20 Ur Leukocyte Esterase Negative (NEGATIVE) 09/17/23 08:20 Urine RBC None seen /HPF (0-3) 09/17/23 08:20 Urine WBC 0-2 /HPF (0-5) 09/17/23 08:20 Ur Squamous Epith Cells Moderate /HPF (NEGATIVE) 09/17/23 08:20 Urine Bacteria Negative /HPF (NEGATIVE) 09/17/23 08:20 Ur Culture Indicated? No/not indicated 09/17/23 08:20 SARS-CoV-2 (PCR) Negative (NEGATIVE) 09/17/23 08:12 Influenza Type A (PCR) Negative (NEGATIVE) 09/17/23 08:12 Influenza Type B (PCR) Negative (NEGATIVE) 09/17/23 08:12 RSV (PCR) Negative (NEGATIVE) 09/17/23 08:12 Resp Viral Panel (PCR) See scanned report 09/17/23 16:26 Plan (1) Pneumonia: Status: Acute Qualifiers: Laterality: left Plan: Follow-up AIT sputum cultures and regular sputum cultures. Dis continue IV Zosyn and start Invanz 1 g IV daily. Today will be day 1 for IV Invanz. (2) Hypoxia: Status: Acute Plan: Supple O2 via nasal cannula and respiratory consultation. Treat left lobe pneumonia and COPD exacerbation. (3) Respiratory insufficiency: Status: Acute Plan: Continue Trelegy Ellipta, montelukast 10 mg daily (4) Hypomagnesemia: Status: Acute Plan: Start magnesium oxide 400 mg p.o. twice daily. (5) COPD exacerbation: Status: Acute Plan: The patient received Solu-Medrol 125 mg IV x 1 in the emergency department and then was started on 40 mg IV twice daily. I will go ahead and increase her to 60 mg IV twice daily to see if we can get her hypoxia improved sooner. (6) Elevated lactic acid level: Status: Acute Plan: Repeat lactic acid per sepsis protocol. (7) Thrombocytopenia: Status: Acute Plan: Follow daily platelet level. GI protection with Protonix 40 mg IV twice daily. (8) Atrial fibrillation: Status: Chronic Qualifiers: Atrial fibrillation type: unspecified Qualified Code(s): I48.91 - Unspecified atrial fibrillation Plan: Continue carvedilol 25 mg p.o. twice daily and Eliquis 5 mg p.o. twice daily. (9) History of CVA with residual deficit: Status: Acute (10) Chronic low back pain: Status: Acute Plan: The patient may resume her [place].
--- NOTE | 2023-09-21 09:12 | RAD ---
EXAM: CHEST, 1 VIEW HISTORY: Pneumonia; ASTHMA, COPD, DVA, GERD, RENAL DISEASE, BLOOD CLOTS SX: ABD SURG, APPY, HYST, ROTATOR CUFF , BACK, HEART ABLATION COMPARISON: 09/19/2023 FINDINGS: The cardiomediastinal silhouette is stable. Improving aeration in the left lung. No pneumothorax or effusion. No acute osseous abnormality. IMPRESSION: Improving left-sided pneumonia. THIS IS AN ELECTRONICALLY VERIFIED FINAL REPORT 09/21/2023 9:09 AM - Electronically signed by Arden Katz MD
[2023-09-21] MEDS: COZAAR PO SCH (09:32)
[2023-09-21] MEDS: K-DUR TAB 20 MEQ PO SCH (09:33)
[2023-09-21] MEDS ORDERED: MAG-OX TAB PO SCH (10:00)
--- NOTE | 2023-09-21 10:19 | PCM.PROG ---
Progress Note Progress Note for Day of Date of Exam: 09/21/23 Subjective Subjective: The patient is alert and awake at this time. She had no acute events overnight or this morning. The chest x-ray shows that she has improving left- sided pneumonia. Her white blood cell count is down to 12,100, which has improved significantly since admission. She is feeling better overall. Her thyroid tests look good overall, and she normally runs a little bit higher per thyroid, but she feels better when it is slightly, she states. However, it is not very far off from normal. We will continue the current treatment since she is improving. Her blood pressure is elevated again. Still, we will add losartan 50 mg 1 p.o. daily for hypertension improvement. Recheck her blood pressure to pramod. Past Medical Family Social History Allergies: Allergies sulfacetamide Allergy (Unknown, Verified 09/17/23 07:40) Reason: Drug allergy Sulfa (Sulfonamide Antibiotics) [SULFA] Allergy (Verified 09/17/23 07:40) Review of Systems ROS: No change since H&P Vital Signs and I&O's Vital Signs: Vital Signs Temperature 97.7 F Temperature 97.7 F Pulse Rate [Right Radial] 62 Pulse Rate [Right Radial] 77 Pulse Rate 69 Respiratory Rate 20 Respiratory Rate 21 Blood Pressure [Right Arm] 177/79 Blood Pressure [Right Arm] 122/61 O2 Sat by Pulse Oximetry 96 O2 Sat by Pulse Oximetry 95 O2 Sat by Pulse Oximetry 95 Intake and Output: Intake & Output 09/18/23 09/19/23 09/20/23 09/21/23 11:59 11:59 11:59 11:59 Intake Total 3467 / 3467 3970 / 3970 3845 / 3845 3372 / 3372 Balance 3467 / 3467 3970 / 3970 3845 / 3845 3372 / 3372 Physical Exam Oriented: Normal, Time, Person and Place Eyes: Normal Ear: Normal Nose: Normal Throat: Normal Respiratory: Generalized and Rhonchi Cardiovascular: Normal Auscultation: Bowel Sounds: Normal Tenderness: Normal Skin: Normal Musculoskeletal: Normal Psychiatric: Normal Mood Description: Calm Affect: Normal Speech Pattern: Clear and Appropriate Laboratory and Diagnostics 09/21/23 06:05 09/21/23 06:05 Labs: 09/19/23 10:15 Sputum - Expectorated Sputum Sputum Culture - Preliminary 09/19/23 10:15 Sputum - Expectorated Sputum - Final 09/17/23 08:04 Blood Blood Culture - Preliminary 09/17/23 07:55 Blood Blood Culture - Preliminary Laboratory WBC 12.1 X10^3/uL (3.6-10.0) H 09/21/23 06:05 RBC 4.35 X10^6/uL (3.5-5.4) 09/21/23 06:05 Hgb 11.7 g/dL (12.0-16.0) L 09/21/23 06:05 Hct 36.0 % (36.0-47.0) 09/21/23 06:05 MCV 82.7 fL (80.0-100.0) 09/21/23 06:05 MCH 26.9 pg (27.0-34.0) L 09/21/23 06:05 MCHC 32.6 g/dL (33.0-35.0) L 09/21/23 06:05 RDW 22.8 % (11.6-16.5) H 09/21/23 06:05 Plt Count 139 X10^3/uL (150.0-450.0) L 09/21/23 06:05 Plt Count Comment Decreased (ADEQUATE) A 09/21/23 06:05 MPV 9.6 fL (7.4-11.0) 09/21/23 06:05 Neut % (Auto) 87.0 % (42.0-75.0) H 09/21/23 06:05 Lymph % (Auto) 6.0 % (21.0-51.0) L 09/21/23 06:05 [place] % (Auto) 6.9 % (0.0-13.0) 09/21/23 06:05 Eos % (Auto) 0.0 % (0.9-2.9) L 09/21/23 06:05 Baso % (Auto) 0.1 % (0.2-1.0) L 09/21/23 06:05 Neut # (Auto) 10.5 x10^3/uL (2.2-4.8) H 09/21/23 06:05 Lymph # (Auto) 0.7 X10^3/uL (1.3-2.9) L 09/21/23 06:05 [place] # (Auto) 0.8 x10^3/uL (0.3-0.8) 09/21/23 06:05 Eos # (Auto) 0.0 x10^3/uL (0.0-0.2) 09/21/23 06:05 Baso # (Auto) 0.0 X10^3/uL (0.0-0.1) 09/21/23 06:05 Absolute Nucleated RBC 0.1 /100WBC 09/21/23 06:05 Total Counted 100 09/21/23 06:05 Neutrophils % (Manual) 82 % (39-76) H 09/21/23 06:05 Band Neutrophils % 4 % (0-10) 09/20/23 06:05 Lymphocytes % (Manual) 14 % (13-43) 09/21/23 06:05 Monocytes % (Manual) 4 % (4-9) 09/21/23 06:05 Plt Morphology Comment Normal (NORMAL) 09/21/23 06:05 RBC Morphology Abnormal (NORMAL) A 09/21/23 06:05 Hypochromasia Slight A 09/21/23 06:05 Anisocytosis 2+ A 09/21/23 06:05 PT 13.8 SECONDS (11.8-14.3) 09/17/23 07:55 INR Target Range - 09/17/23 07:55 INR 1.08 (0.8-1.3) 09/17/23 07:55 APTT 25.2 SECONDS (22.9-36.5) 09/17/23 07:55 PTT Comment - 09/17/23 07:55 Sample Site Lrad 09/17/23 07:54 ABG pH 7.430 (7.35-7.45) 09/17/23 07:54 ABG pCO2 38.0 mmHg (35.0-45.0) 09/17/23 07:54 ABG pO2 49.0 mmHg (80.0-100.0) L* 09/17/23 07:54 ABG HCO3 25.2 mmol/L (22-26) 09/17/23 07:54 ABG O2 Saturation 85.0 % (90-100) L 09/17/23 07:54 ABG Base Excess 1.0 mmol/L (-2.0-2.0) 09/17/23 07:54 Reagan Test Pos 09/17/23 07:54 A-a Gradient 103.0 mmHg 09/17/23 07:54 FiO2 28.0 09/17/23 07:54 Blood Gas Comments Pt negro well. kg/eb 09/17/23 07:54 Sodium 143 mmol/L (136-145) 09/21/23 06:05 Corrected Sodium 144 mmol/L (136-145) 09/21/23 06:05 Potassium 3.9 mmol/L (3.5-5.1) 09/21/23 06:05 Chloride 106 mmol/L (98-107) 09/21/23 06:05 Carbon Dioxide 30.5 mmol/L (21-32) 09/21/23 06:05 BUN 11 mg/dL (7-18) 09/21/23 06:05 Creatinine 0.56 mg/dL (0.55-1.02) 09/21/23 06:05 Est GFR (MDRD) Af Amer > 60 (>60) 09/21/23 06:05 Est GFR (MDRD) Non-Af > 60 (>60) 09/21/23 06:05 Glucose 145 mg/dL (65-99) H 09/21/23 06:05 Lactic Acid 1.9 mmol/L (0.4-2.0) 09/19/23 07:15 Calcium 7.9 mg/dL (8.5-10.1) L 09/21/23 06:05 Corrected Calcium 9.3 mg/dL (8.5-10.1) 09/21/23 06:05 Magnesium 1.9 mg/dL (2.0-2.9) L 09/21/23 06:05 Total Bilirubin 0.30 mg/dL (0.2-1.0) 09/21/23 06:05 AST 25 Units/L (15-37) 09/21/23 06:05 ALT 25 Units/L (12-78) 09/21/23 06:05 Alkaline Phosphatase 91 Units/L (46-116) 09/21/23 06:05 Creatine Kinase 29 Units/L (26-192) 09/17/23 07:55 Troponin I High Sens 7.0 ng/L (4.0-60.0) 09/17/23 07:55 B-Natriuretic Peptide 10.1 pg/mL (0-79) 09/17/23 07:55 Total Protein 5.5 g/dL (6.4-8.2) L 09/21/23 06:05 Albumin 2.2 g/dL (3.4-5.0) L 09/21/23 06:05 Globulin 3.3 g/dL (2.5-4.5) 09/21/23 06:05 Albumin/Globulin Ratio 0.7 Ratio (1.1-2.1) L 09/21/23 06:05 Free T4 1.05 ng/dL (0.76-1.46) 09/20/23 06:05 TSH 3rd Generation 0.057 uIU/mL (0.358-3.74) L 09/20/23 06:05 Specimen Type Random urine 09/17/23 08:20 Urine Color Yellow (YELLOW) 09/17/23 08:20 Urine Appearance Clear (CLEAR) 09/17/23 08:20 Urine pH 5.0 (5.0 - 8.0) 09/17/23 08:20 Ur Specific [place] 1.015 (1.000-1.030) 09/17/23 08:20 Urine Protein 2+ (NEGATIVE) 09/17/23 08:20 Urine Glucose (UA) Negative (NEGATIVE) 09/17/23 08:20 Urine Ketones Negative (NEGATIVE) 09/17/23 08:20 Urine Blood Negative (NEGATIVE) 09/17/23 08:20 Urine Nitrite Negative (NEGATIVE) 09/17/23 08:20 Urine Bilirubin Negative (NEGATIVE) 09/17/23 08:20 Urine Urobilinogen Normal (NORMAL) 09/17/23 08:20 Ur Leukocyte Esterase Negative (NEGATIVE) 09/17/23 08:20 Urine RBC None seen /HPF (0-3) 09/17/23 08:20 Urine WBC 0-2 /HPF (0-5) 09/17/23 08:20 Ur Squamous Epith Cells Moderate /HPF (NEGATIVE) 09/17/23 08:20 Urine Bacteria Negative /HPF (NEGATIVE) 09/17/23 08:20 Ur Culture Indicated? No/not indicated 09/17/23 08:20 SARS-CoV-2 (PCR) Negative (NEGATIVE) 09/17/23 08:12 Influenza Type A (PCR) Negative (NEGATIVE) 09/17/23 08:12 Influenza Type B (PCR) Negative (NEGATIVE) 09/17/23 08:12 RSV (PCR) Negative (NEGATIVE) 09/17/23 08:12 Resp Viral Panel (PCR) See scanned report 09/17/23 16:26 Radiology Reviewed: Yes Plan (1) Pneumonia: Status: Acute Qualifiers: Laterality: left Narrative Support Text: Improving left sided pneumonia. Plan: Follow-up AIT sputum cultures and regular sputum cultures. Discontinue IV Zosyn and start Invanz 1 g IV daily. Today will be day 1 for IV Invanz. (2) Hypoxia: Status: Acute Plan: Supple O2 via nasal cannula and respiratory consultation. Treat left lobe pneumonia and COPD exacerbation. (3) Respiratory insufficiency: Status: Acute Plan: Continue Trelegy Ellipta, montelukast 10 mg daily (4) Hypomagnesemia: Status: Acute Plan: Start magnesium oxide 400 mg p.o. twice daily. (5) COPD exacerbation: Status: Acute Plan: The patient received Solu-Medrol 125 mg IV x 1 in the emergency department and then was started on 40 mg IV twice daily. I will go ahead and increase her to 60 mg IV twice daily to see if we can get her hypoxia improved sooner. (6) Elevated lactic acid level: Status: Acute Plan: Repeat lactic acid per sepsis protocol. (7) Thrombocytopenia: Status: Acute Plan: Follow daily platelet level. GI protection with Protonix 40 mg IV twice daily. (8) Atrial fibrillation: Status: Chronic Qualifiers: Atrial fibrillation type: unspecified Qualified Code(s): I48.91 - Unspecified atrial fibrillation Plan: Continue carvedilol 25 mg p.o. twice daily and Eliquis 5 mg p.o. twice daily. (9) History of CVA with residual deficit: Status: Acute (10) Chronic low back pain: Status: Acute Plan: The patient may resume her [place]. (11) Primary hypertension: Status: Acute Plan: Add losartan 50 mg 1 p.o. daily. Recheck blood pressure tomorrow morning.
[2023-09-22 06:02] LABS: BASOPHILS % (AUTO) 0.4 % (0.2-1.0); HEMATOCRIT 37.6 % (36.0-47.0); HEMOGLOBIN 12.1 g/dL (12.0-16.0); LYMPHOCYTES # (AUTO) 0.8 X10^3/uL (1.3-2.9); LYMPHOCYTES % (AUTO) 7.2 % (21.0-51.0); MEAN CORPUSCULAR HGB CONC 32.1 g/dL (33.0-35.0); MEAN CORPUSCULAR VOLUME 83.9 fL (80.0-100.0); MEAN PLATELET VOLUME 9.4 fL (7.4-11.0); MONOCYTES # (AUTO) 0.5 x10^3/uL (0.3-0.8); NEUTROPHILS # (AUTO) 9.1 x10^3/uL (2.2-4.8); NEUTROPHILS % (AUTO) 87.4 % (42.0-75.0); PLATELET COUNT 129 X10^3/uL (150.0-450.0); RED BLOOD COUNT 4.49 X10^6/uL (3.5-5.4); RED CELL DISTRIBUTION WIDTH 22.6 % (11.6-16.5); WHITE BLOOD COUNT 10.5 X10^3/uL (3.6-10.0)
[2023-09-22 06:16] LABS: ALANINE AMINOTRANSFERASE 33 Units/L (12-78); ALBUMIN 2.2 g/dL (3.4-5.0); ALKALINE PHOSPHATASE 75 Units/L (46-116); ASPARTATE AMINO TRANSFERASE 15 Units/L (15-37); BLOOD UREA NITROGEN 13 mg/dL (7-18); CALCIUM 8.1 mg/dL (8.5-10.1); CARBON DIOXIDE 31.5 mmol/L (21-32); CHLORIDE 106 mmol/L (98-107); COR CA(FOR HYPOALB) 9.5 mg/dL (8.5-10.1); COR NA(FOR HYPERGLY) 143 mmol/L (136-145); CREATININE 0.65 mg/dL (0.55-1.02); GLUCOSE 153 mg/dL (65-99); MAGNESIUM 1.9 mg/dL (2.0-2.9); SODIUM 142 mmol/L (136-145); TOTAL PROTEIN 5.3 g/dL (6.4-8.2); eGFR NON BLACK RACES > 60 (>60)
[2023-09-22 06:21] LABS: ANISOCYTOSIS 2+; BAND NEUTROPHILS % 0 % (0-10); BASOPHILS % (MANUAL) 0 % (0-1); OVALOCYTES 1+; PLATELET MORPHOLOGY COMMENT NORMAL (NORMAL)
[2023-09-22 06:22] LABS: SCHISTOCYTES SLIGHT
[2023-09-22] MEDS ORDERED: CONSULT PHARMACY - POTASSIUM & MAGNESIUM XX SCH (07:00)
[2023-09-22] MEDS: MAG-OX TAB PO SCH (11:12)
--- NOTE | 2023-09-22 16:31 | RAD ---
EXAM:CHEST, 1 VIEWHISTORY:PNEUMONIA; UnavailableCOMPARISON:YesterdayFINDINGS: The trachea is midline. The cardiac silhouette is unremarkable. The lungs demonstrate stable infiltrates in the left lung. The bony thorax is unremarkable.IMPRESSION:Stable left-sided pneumonia.THIS IS AN ELECTRONICALLY VERIFIED FINAL REPORT09/22/2023 4:28 PM - Electronically signed by Ranjit Gavin MD
[2023-09-23 05:44] LABS: BASOPHILS # (AUTO) 0.1 X10^3/uL (0.0-0.1); BASOPHILS % (AUTO) 0.4 % (0.2-1.0); LYMPHOCYTES # (AUTO) 0.8 X10^3/uL (1.3-2.9); LYMPHOCYTES % (AUTO) 6.3 % (21.0-51.0); MEAN CORPUSCULAR HEMOGLOBIN 26.5 pg (27.0-34.0); MEAN CORPUSCULAR HGB CONC 31.7 g/dL (33.0-35.0); MEAN CORPUSCULAR VOLUME 83.5 fL (80.0-100.0); MEAN PLATELET VOLUME 9.4 fL (7.4-11.0); MONOCYTES # (AUTO) 0.7 x10^3/uL (0.3-0.8); MONOCYTES % (AUTO) 5.6 % (0.0-13.0); NEUTROPHILS # (AUTO) 11.3 x10^3/uL (2.2-4.8); NEUTROPHILS % (AUTO) 87.7 % (42.0-75.0); PLATELET COUNT 150 X10^3/uL (150.0-450.0); RED BLOOD COUNT 4.55 X10^6/uL (3.5-5.4); RED CELL DISTRIBUTION WIDTH 22.8 % (11.6-16.5); WHITE BLOOD COUNT 12.9 X10^3/uL (3.6-10.0)
[2023-09-23 05:55] LABS: ANISOCYTOSIS 2+; METAMYELOCYTES % 3; OVALOCYTES SLIGHT; PLATELET MORPHOLOGY COMMENT NORMAL (NORMAL); SCHISTOCYTES SLIGHT
[2023-09-23 06:00] LABS: ALANINE AMINOTRANSFERASE 33 Units/L (12-78); ALBUMIN 2.2 g/dL (3.4-5.0); ALKALINE PHOSPHATASE 82 Units/L (46-116); ASPARTATE AMINO TRANSFERASE 12 Units/L (15-37); BLOOD UREA NITROGEN 15 mg/dL (7-18); CARBON DIOXIDE 32.3 mmol/L (21-32); CHLORIDE 107 mmol/L (98-107); COR CA(FOR HYPOALB) 9.4 mg/dL (8.5-10.1); COR NA(FOR HYPERGLY) 143 mmol/L (136-145); GLUCOSE 134 mg/dL (65-99); MAGNESIUM 2.1 mg/dL (2.0-2.9); POTASSIUM 4.3 mmol/L (3.5-5.1); SODIUM 142 mmol/L (136-145); TOTAL PROTEIN 5.2 g/dL (6.4-8.2); eGFR NON BLACK RACES > 60 (>60)
--- NOTE | 2023-09-23 07:35 | PCM.PROG ---
Progress Note Progress Note for Day of Date of Exam: 09/22/23 Subjective Subjective: The patient is alert and awake at this time. She had no acute events overnight or this morning. The chest x-ray shows that she has a stable left- sided pneumonia. Her white blood cell count has decreased again today. She is feeling better overall but still somewhat weak. I told her we will give her IV antibiotics through the weekend and plan on discharging her home at the first of the week. Past Medical Family Social History Allergies: Allergies sulfacetamide Allergy (Unknown, Verified 09/17/23 07:40) Reason: Drug allergy Sulfa (Sulfonamide Antibiotics) [SULFA] Allergy (Verified 09/17/23 07:40) Review of Systems ROS: No change since H&P Vital Signs and I&O's Vital Signs: Vital Signs Temperature 97.7 F Temperature 98.2 F Pulse Rate [Right Radial] 78 Pulse Rate [Right Radial] 71 Respiratory Rate 21 Respiratory Rate 20 Blood Pressure [Right Arm] 119/61 Blood Pressure [Left Arm] 177/79 O2 Sat by Pulse Oximetry 95 O2 Sat by Pulse Oximetry 98 Intake and Output: Intake & Output 09/20/23 09/21/23 09/22/23 09/23/23 11:59 11:59 11:59 11:59 Intake Total 3845 / 3845 3372 / 3372 3249 / 3249 4209 / 4209 Balance 3845 / 3845 3372 / 3372 3249 / 3249 4209 / 4209 Physical Exam Oriented: Normal, Time, Person and Place Eyes: Normal Ear: Normal Nose: Normal Throat: Normal Respiratory: Generalized and Rhonchi Cardiovascular: Normal Auscultation: Bowel Sounds: Normal Tenderness: Normal Skin: Normal Musculoskeletal: Normal Psychiatric: Normal Mood Description: Calm Affect: Normal Speech Pattern: Clear and Appropriate Laboratory and Diagnostics 09/23/23 05:11 09/23/23 05:11 Labs: 09/17/23 07:55 Blood Blood Culture - Final 09/17/23 08:04 Blood Blood Culture - Final 09/19/23 10:15 Sputum - Expectorated Sputum Sputum Culture - Final Escherichia Coli Esbl 09/19/23 10:15 Sputum - Expectorated Sputum - Final Laboratory WBC 12.9 X10^3/uL (3.6-10.0) H 09/23/23 05:11 RBC 4.55 X10^6/uL (3.5-5.4) 09/23/23 05:11 Hgb 12.0 g/dL (12.0-16.0) 09/23/23 05:11 Hct 38.0 % (36.0-47.0) 09/23/23 05:11 MCV 83.5 fL (80.0-100.0) 09/23/23 05:11 MCH 26.5 pg (27.0-34.0) L 09/23/23 05:11 MCHC 31.7 g/dL (33.0-35.0) L 09/23/23 05:11 RDW 22.8 % (11.6-16.5) H 09/23/23 05:11 Plt Count 150 X10^3/uL (150.0-450.0) 09/23/23 05:11 Plt Count Comment Adequate (ADEQUATE) 09/23/23 05:11 MPV 9.4 fL (7.4-11.0) 09/23/23 05:11 Neut % (Auto) 87.7 % (42.0-75.0) H 09/23/23 05:11 Lymph % (Auto) 6.3 % (21.0-51.0) L 09/23/23 05:11 [place] % (Auto) 5.6 % (0.0-13.0) 09/23/23 05:11 Eos % (Auto) 0.0 % (0.9-2.9) L 09/23/23 05:11 Baso % (Auto) 0.4 % (0.2-1.0) 09/23/23 05:11 Neut # (Auto) 11.3 x10^3/uL (2.2-4.8) H 09/23/23 05:11 Lymph # (Auto) 0.8 X10^3/uL (1.3-2.9) L 09/23/23 05:11 [place] # (Auto) 0.7 x10^3/uL (0.3-0.8) 09/23/23 05:11 Eos # (Auto) 0.0 x10^3/uL (0.0-0.2) 09/23/23 05:11 Baso # (Auto) 0.1 X10^3/uL (0.0-0.1) 09/23/23 05:11 Absolute Nucleated RBC 0.0 /100WBC 09/23/23 05:11 Total Counted 100 09/23/23 05:11 Neutrophils % (Manual) 84 % (39-76) H 09/23/23 05:11 Band Neutrophils % 0 % (0-10) 09/22/23 05:20 Lymphocytes % (Manual) 10 % (13-43) L 09/23/23 05:11 Monocytes % (Manual) 3 % (4-9) L 09/23/23 05:11 Eosinophils % (Manual) 0 % (0-6) 09/22/23 05:20 Basophils % (Manual) 0 % (0-1) 09/22/23 05:20 Metamyelocytes % 3 09/23/23 05:11 Plt Morphology Comment Normal (NORMAL) 09/23/23 05:11 RBC Morphology Abnormal (NORMAL) A 09/23/23 05:11 Hypochromasia Slight A 09/21/23 06:05 Anisocytosis 2+ A 09/23/23 05:11 Ovalocytes Slight A 09/23/23 05:11 Schistocytes Slight A 09/23/23 05:11 PT 13.8 SECONDS (11.8-14.3) 09/17/23 07:55 INR Target Range - 09/17/23 07:55 INR 1.08 (0.8-1.3) 09/17/23 07:55 APTT 25.2 SECONDS (22.9-36.5) 09/17/23 07:55 PTT Comment - 09/17/23 07:55 Sample Site Lrad 09/17/23 07:54 ABG pH 7.430 (7.35-7.45) 09/17/23 07:54 ABG pCO2 38.0 mmHg (35.0-45.0) 09/17/23 07:54 ABG pO2 49.0 mmHg (80.0-100.0) L* 09/17/23 07:54 ABG HCO3 25.2 mmol/L (22-26) 09/17/23 07:54 ABG O2 Saturation 85.0 % (90-100) L 09/17/23 07:54 ABG Base Excess 1.0 mmol/L (-2.0-2.0) 09/17/23 07:54 Reagan Test Pos 09/17/23 07:54 A-a Gradient 103.0 mmHg 09/17/23 07:54 FiO2 28.0 09/17/23 07:54 Blood Gas Comments Pt negro well. kg/eb 09/17/23 07:54 Sodium 142 mmol/L (136-145) 09/23/23 05:11 Corrected Sodium 143 mmol/L (136-145) 09/23/23 05:11 Potassium 4.3 mmol/L (3.5-5.1) 09/23/23 05:11 Chloride 107 mmol/L (98-107) 09/23/23 05:11 Carbon Dioxide 32.3 mmol/L (21-32) H 09/23/23 05:11 BUN 15 mg/dL (7-18) 09/23/23 05:11 Creatinine 0.60 mg/dL (0.55-1.02) 09/23/23 05:11 Est GFR (MDRD) Af Amer > 60 (>60) 09/23/23 05:11 Est GFR (MDRD) Non-Af > 60 (>60) 09/23/23 05:11 Glucose 134 mg/dL (65-99) H 09/23/23 05:11 Lactic Acid 1.9 mmol/L (0.4-2.0) 09/19/23 07:15 Calcium 8.0 mg/dL (8.5-10.1) L 09/23/23 05:11 Corrected Calcium 9.4 mg/dL (8.5-10.1) 09/23/23 05:11 Magnesium 2.1 mg/dL (2.0-2.9) 09/23/23 05:11 Total Bilirubin 0.30 mg/dL (0.2-1.0) 09/23/23 05:11 AST 12 Units/L (15-37) L 09/23/23 05:11 ALT 33 Units/L (12-78) 09/23/23 05:11 Alkaline Phosphatase 82 Units/L (46-116) 09/23/23 05:11 Creatine Kinase 29 Units/L (26-192) 09/17/23 07:55 Troponin I High Sens 7.0 ng/L (4.0-60.0) 09/17/23 07:55 B-Natriuretic Peptide 10.1 pg/mL (0-79) 09/17/23 07:55 Total Protein 5.2 g/dL (6.4-8.2) L 09/23/23 05:11 Albumin 2.2 g/dL (3.4-5.0) L 09/23/23 05:11 Globulin 3.0 g/dL (2.5-4.5) 09/23/23 05:11 Albumin/Globulin Ratio 0.7 Ratio (1.1-2.1) L 09/23/23 05:11 Free T4 1.05 ng/dL (0.76-1.46) 09/20/23 06:05 TSH 3rd Generation 0.057 uIU/mL (0.358-3.74) L 09/20/23 06:05 Specimen Type Random urine 09/17/23 08:20 Urine Color Yellow (YELLOW) 09/17/23 08:20 Urine Appearance Clear (CLEAR) 09/17/23 08:20 Urine pH 5.0 (5.0 - 8.0) 09/17/23 08:20 Ur Specific [place] 1.015 (1.000-1.030) 09/17/23 08:20 Urine Protein 2+ (NEGATIVE) 09/17/23 08:20 Urine Glucose (UA) Negative (NEGATIVE) 09/17/23 08:20 Urine Ketones Negative (NEGATIVE) 09/17/23 08:20 Urine Blood Negative (NEGATIVE) 09/17/23 08:20 Urine Nitrite Negative (NEGATIVE) 09/17/23 08:20 Urine Bilirubin Negative (NEGATIVE) 09/17/23 08:20 Urine Urobilinogen Normal (NORMAL) 09/17/23 08:20 Ur Leukocyte Esterase Negative (NEGATIVE) 09/17/23 08:20 Urine RBC None seen /HPF (0-3) 09/17/23 08:20 Urine WBC 0-2 /HPF (0-5) 09/17/23 08:20 Ur Squamous Epith Cells Moderate /HPF (NEGATIVE) 09/17/23 08:20 Urine Bacteria Negative /HPF (NEGATIVE) 09/17/23 08:20 Ur Culture Indicated? No/not indicated 09/17/23 08:20 SARS-CoV-2 (PCR) Negative (NEGATIVE) 09/17/23 08:12 Influenza Type A (PCR) Negative (NEGATIVE) 09/17/23 08:12 Influenza Type B (PCR) Negative (NEGATIVE) 09/17/23 08:12 RSV (PCR) Negative (NEGATIVE) 09/17/23 08:12 Resp Viral Panel (PCR) See scanned report 09/17/23 16:26 Plan (1) Pneumonia: Status: Acute Qualifiers: Laterality: left Plan: Follow-up AIT sputum cultures and regular sputum cultures. Discontinue IV Zosyn and start Invanz 1 g IV daily. Today will be day 1 for IV Invanz. (2) Hypoxia: Status: Acute Plan: Supple O2 via nasal cannula and respiratory consultation. Treat left lobe pneumonia and COPD exacerbation. (3) Respiratory insufficiency: Status: Acute Plan: Continue Trelegy Ellipta, montelukast 10 mg daily (4) Hypomagnesemia: Status: Acute Plan: Start magnesium oxide 400 mg p.o. twice daily. (5) COPD exacerbation: Status: Acute Plan: The patient received Solu-Medrol 125 mg IV x 1 in the emergency department and then was started on 40 mg IV twice daily. I will go ahead and increase her to 60 mg IV twice daily to see if we can get her hypoxia improved sooner. (6) Elevated lactic acid level: Status: Acute Plan: Repeat lactic acid per sepsis protocol. (7) Thrombocytopenia: Status: Acute Plan: Follow daily platelet level. GI protection with Protonix 40 mg IV twice daily. (8) Atrial fibrillation: Status: Chronic Qualifiers: Atrial fibrillation type: unspecified Qualified Code(s): I48.91 - Unspecified atrial fibrillation Plan: Continue carvedilol 25 mg p.o. twice daily and Eliquis 5 mg p.o. twice daily. (9) History of CVA with residual deficit: Status: Acute (10) Chronic low back pain: Status: Acute Plan: The patient may resume her [place]. (11) Primary hypertension: Status: Acute Plan: Add losartan 50 mg 1 p.o. daily. Recheck blood pressure tomorrow morning.
--- NOTE | 2023-09-23 07:50 | RAD ---
EXAM:CHEST, 1 VIEWHISTORY:PNEUMONIA;COMPARISON:September 21TECHNIQUE:Portable chest radiographFINDINGS:Similar findings of chronic obstructive pulmonary disease with right apical and background parenchymal scarring and superimposed hazy interstitial infiltrates within the left lung in keeping with superimposed pneumonia. Marginal blunting of the left costophrenic sulcus is observed. Normal heart size. No radiographic evidence of pneumothorax.IMPRESSION:Unresolved interstitial infiltrates of the left lung in keeping with pneumonia. Blunting of the left costophrenic sulcus may indicate a small effusionRadiographic features of COPD with superimposed multifocal parenchymal scarring.THIS IS AN ELECTRONICALLY VERIFIED FINAL REPORT09/23/2023 7:46 AM - Electronically signed by Bran Cortez MD
[2023-09-23] MEDS: VIBRAMYCIN 100 MG in D5W 250 ML IV 250 ML IV SCH (11:42)
[2023-09-24 05:27] LABS: BASOPHILS % (AUTO) 0 % (0.2-1.0); HEMATOCRIT 36.6 % (36.0-47.0); HEMOGLOBIN 11.7 g/dL (12.0-16.0); LYMPHOCYTES # (AUTO) 0.6 X10^3/uL (1.3-2.9); LYMPHOCYTES % (AUTO) 5.5 % (21.0-51.0); MEAN CORPUSCULAR HEMOGLOBIN 26.9 pg (27.0-34.0); MEAN PLATELET VOLUME 9.4 fL (7.4-11.0); MONOCYTES # (AUTO) 0.4 x10^3/uL (0.3-0.8); MONOCYTES % (AUTO) 3.5 % (0.0-13.0); NEUTROPHILS # (AUTO) 10.6 x10^3/uL (2.2-4.8); PLATELET COUNT 157 X10^3/uL (150.0-450.0); RED BLOOD COUNT 4.36 X10^6/uL (3.5-5.4); RED CELL DISTRIBUTION WIDTH 22.3 % (11.6-16.5); WHITE BLOOD COUNT 11.7 X10^3/uL (3.6-10.0)
--- NOTE | 2023-09-24 05:28 | RAD ---
PROCEDURE: Chest X-ray 1 View.HISTORY: Pneumonia.TECHNIQUE: AP view.COMPARISON: 09/23/2023.TECHNICAL QUALITY: Satisfactory.FINDINGS:Normal size heart.Mediastinum and hilar regions show no masses or lymphadenopathy.Normal central vascularity.Continued consolidation left base laterally consistent with pneumonia slightly increased compared to previous study. Right lung reed clear. No definite pleural fluid.No acute bony abnormality.IMPRESSION:Mildly increased left basilar pneumonia.THIS IS AN ELECTRONICALLY VERIFIED FINAL REPORT09/24/2023 5:25 AM - Electronically signed by Erik Longo MD
[2023-09-24 05:54] LABS: ALANINE AMINOTRANSFERASE 32 Units/L (12-78); ALBUMIN 2.1 g/dL (3.4-5.0); ALKALINE PHOSPHATASE 83 Units/L (46-116); ASPARTATE AMINO TRANSFERASE 14 Units/L (15-37); BLOOD UREA NITROGEN 13 mg/dL (7-18); CALCIUM 7.8 mg/dL (8.5-10.1); CHLORIDE 106 mmol/L (98-107); COR CA(FOR HYPOALB) 9.3 mg/dL (8.5-10.1); COR NA(FOR HYPERGLY) 144 mmol/L (136-145); CREATININE 0.59 mg/dL (0.55-1.02); GLUCOSE 157 mg/dL (65-99); POTASSIUM 4.3 mmol/L (3.5-5.1); SODIUM 143 mmol/L (136-145); TOTAL PROTEIN 4.9 g/dL (6.4-8.2); eGFR NON BLACK RACES > 60 (>60)
[2023-09-24 05:56] LABS: ANISOCYTOSIS 2+; BAND NEUTROPHILS % 3 % (0-10); METAMYELOCYTES % 1; PLATELET MORPHOLOGY COMMENT NORMAL (NORMAL)
[2023-09-24 05:57] LABS: OVALOCYTES SLIGHT; SCHISTOCYTES SLIGHT
[2023-09-25 06:30] LABS: BASOPHILS % (AUTO) 0.1 % (0.2-1.0); HEMATOCRIT 36.7 % (36.0-47.0); LYMPHOCYTES # (AUTO) 0.7 X10^3/uL (1.3-2.9); LYMPHOCYTES % (AUTO) 5.4 % (21.0-51.0); MEAN CORPUSCULAR HEMOGLOBIN 27.1 pg (27.0-34.0); MEAN CORPUSCULAR HGB CONC 32.7 g/dL (33.0-35.0); MEAN PLATELET VOLUME 9.3 fL (7.4-11.0); MONOCYTES # (AUTO) 0.5 x10^3/uL (0.3-0.8); MONOCYTES % (AUTO) 3.9 % (0.0-13.0); NEUTROPHILS # (AUTO) 11.3 x10^3/uL (2.2-4.8); NEUTROPHILS % (AUTO) 90.6 % (42.0-75.0); PLATELET COUNT 169 X10^3/uL (150.0-450.0); RED BLOOD COUNT 4.43 X10^6/uL (3.5-5.4); RED CELL DISTRIBUTION WIDTH 22.8 % (11.6-16.5); WHITE BLOOD COUNT 12.4 X10^3/uL (3.6-10.0)
[2023-09-25 06:41] LABS: ALANINE AMINOTRANSFERASE 30 Units/L (12-78); ALBUMIN 2.3 g/dL (3.4-5.0); ALKALINE PHOSPHATASE 85 Units/L (46-116); ASPARTATE AMINO TRANSFERASE 12 Units/L (15-37); BLOOD UREA NITROGEN 13 mg/dL (7-18); CARBON DIOXIDE 32.9 mmol/L (21-32); CHLORIDE 106 mmol/L (98-107); COR CA(FOR HYPOALB) 9.4 mg/dL (8.5-10.1); COR NA(FOR HYPERGLY) 144 mmol/L (136-145); CREATININE 0.58 mg/dL (0.55-1.02); GLUCOSE 147 mg/dL (65-99); POTASSIUM 4.4 mmol/L (3.5-5.1); SODIUM 143 mmol/L (136-145); TOTAL PROTEIN 5.1 g/dL (6.4-8.2); eGFR NON BLACK RACES > 60 (>60)
[2023-09-25 06:56] LABS: ANISOCYTOSIS 2+; BAND NEUTROPHILS % 1 % (0-10); PLATELET MORPHOLOGY COMMENT NORMAL (NORMAL)
[2023-09-25 06:57] LABS: OVALOCYTES SLIGHT; SCHISTOCYTES SLIGHT
--- NOTE | 2023-09-25 09:22 | RAD ---
EXAM:AP chestHISTORY:PneumoniaCOMPARISON: 024FINDINGS:There is significant improvement in aeration of the left lower lobe. Airspace component has resolved with persisting interstitial prominence and slight blunting deformity of the costophrenic angle. No new abnormality is noted.IMPRESSION:Significant improvement with no new findings. See above.THIS IS AN ELECTRONICALLY VERIFIED FINAL REPORT09/25/2023 9:19 AM - Electronically signed by Delmer Trejo MD
[2023-09-25] MEDS: PEPCID TAB 20 MG PO PRN (13:30)
--- NOTE | 2023-09-25 16:28 | PCM.PROG ---
Progress Note Progress Note for Day of Date of Exam: 09/25/23 Subjective Subjective: The patient is alert and awake at this time. She had no acute events overnight or this morning. The chest x-ray shows that she still has an improving left-sided pneumonia. Her white blood cell count has decreased again today. She is at 12,400 today. She is feeling better overall. I told her we will give her IV antibiotics through the next day or so and hopefully can get her discharged home. Will plan on rechecking another chest x-ray tomorrow morning continue current treatment. Past Medical Family Social History Allergies: Allergies sulfacetamide Allergy (Unknown, Verified 09/17/23 07:40) Reason: Drug allergy Sulfa (Sulfonamide Antibiotics) [SULFA] Allergy (Verified 09/17/23 07:40) Review of Systems ROS: No change since H&P Vital Signs and I&O's Vital Signs: Vital Signs Temperature 98.0 F Pulse Rate [Left Brachial] 65 Respiratory Rate 20 Respiratory Rate 20 Respiratory Rate 20 Blood Pressure [Left Arm] 178/80 O2 Sat by Pulse Oximetry 95 O2 Sat by Pulse Oximetry 95 Intake and Output: Intake & Output 09/23/23 09/24/23 09/25/23 09/26/23 11:59 11:59 11:59 11:59 Intake Total 4209 / 4209 3754 / 3754 4297 / 4297 3363 / 3363 Balance 4209 / 4209 3754 / 3754 4297 / 4297 3363 / 3363 Physical Exam Oriented: Normal, Time, Person and Place Eyes: Normal Ear: Normal Nose: Normal Throat: Normal Respiratory: Generalized and Rhonchi Cardiovascular: Normal Auscultation: Bowel Sounds: Normal Tenderness: Normal Skin: Normal Musculoskeletal: Normal Psychiatric: Normal Mood Description: Calm Affect: Normal Speech Pattern: Clear and Appropriate Laboratory and Diagnostics 09/25/23 05:50 09/25/23 05:50 Labs: 09/17/23 07:55 Blood Blood Culture - Final 09/17/23 08:04 Blood Blood Culture - Final 09/19/23 10:15 Sputum - Expectorated Sputum Sputum Culture - Final Escherichia Coli Esbl 09/19/23 10:15 Sputum - Expectorated Sputum - Final Laboratory WBC 12.4 X10^3/uL (3.6-10.0) H 09/25/23 05:50 RBC 4.43 X10^6/uL (3.5-5.4) 09/25/23 05:50 Hgb 12.0 g/dL (12.0-16.0) 09/25/23 05:50 Hct 36.7 % (36.0-47.0) 09/25/23 05:50 MCV 83.0 fL (80.0-100.0) 09/25/23 05:50 MCH 27.1 pg (27.0-34.0) 09/25/23 05:50 MCHC 32.7 g/dL (33.0-35.0) L 09/25/23 05:50 RDW 22.8 % (11.6-16.5) H 09/25/23 05:50 Plt Count 169 X10^3/uL (150.0-450.0) 09/25/23 05:50 Plt Count Comment Adequate (ADEQUATE) 09/25/23 05:50 MPV 9.3 fL (7.4-11.0) 09/25/23 05:50 Neut % (Auto) 90.6 % (42.0-75.0) H 09/25/23 05:50 Lymph % (Auto) 5.4 % (21.0-51.0) L 09/25/23 05:50 [place] % (Auto) 3.9 % (0.0-13.0) 09/25/23 05:50 Eos % (Auto) 0.0 % (0.9-2.9) L 09/25/23 05:50 Baso % (Auto) 0.1 % (0.2-1.0) L 09/25/23 05:50 Neut # (Auto) 11.3 x10^3/uL (2.2-4.8) H 09/25/23 05:50 Lymph # (Auto) 0.7 X10^3/uL (1.3-2.9) L 09/25/23 05:50 [place] # (Auto) 0.5 x10^3/uL (0.3-0.8) 09/25/23 05:50 Eos # (Auto) 0.0 x10^3/uL (0.0-0.2) 09/25/23 05:50 Baso # (Auto) 0.0 X10^3/uL (0.0-0.1) 09/25/23 05:50 Absolute Nucleated RBC 0.1 /100WBC 09/25/23 05:50 Total Counted 100 09/25/23 05:50 Neutrophils % (Manual) 88 % (39-76) H 09/25/23 05:50 Band Neutrophils % 1 % (0-10) 09/25/23 05:50 Lymphocytes % (Manual) 10 % (13-43) L 09/25/23 05:50 Monocytes % (Manual) 1 % (4-9) L 09/25/23 05:50 Eosinophils % (Manual) 0 % (0-6) 09/22/23 05:20 Basophils % (Manual) 0 % (0-1) 09/22/23 05:20 Metamyelocytes % 1 09/24/23 04:10 Plt Morphology Comment Normal (NORMAL) 09/25/23 05:50 RBC Morphology Abnormal (NORMAL) A 09/25/23 05:50 Hypochromasia Slight A 09/21/23 06:05 Anisocytosis 2+ A 09/25/23 05:50 Ovalocytes Slight A 09/25/23 05:50 Schistocytes Slight A 09/25/23 05:50 PT 13.8 SECONDS (11.8-14.3) 09/17/23 07:55 INR Target Range - 09/17/23 07:55 INR 1.08 (0.8-1.3) 09/17/23 07:55 APTT 25.2 SECONDS (22.9-36.5) 09/17/23 07:55 PTT Comment - 09/17/23 07:55 Sample Site Lrad 09/17/23 07:54 ABG pH 7.430 (7.35-7.45) 09/17/23 07:54 ABG pCO2 38.0 mmHg (35.0-45.0) 09/17/23 07:54 ABG pO2 49.0 mmHg (80.0-100.0) L* 09/17/23 07:54 ABG HCO3 25.2 mmol/L (22-26) 09/17/23 07:54 ABG O2 Saturation 85.0 % (90-100) L 09/17/23 07:54 ABG Base Excess 1.0 mmol/L (-2.0-2.0) 09/17/23 07:54 Reagan Test Pos 09/17/23 07:54 A-a Gradient 103.0 mmHg 09/17/23 07:54 FiO2 28.0 09/17/23 07:54 Blood Gas Comments Pt negro well. kg/eb 09/17/23 07:54 Sodium 143 mmol/L (136-145) 09/25/23 05:50 Corrected Sodium 144 mmol/L (136-145) 09/25/23 05:50 Potassium 4.4 mmol/L (3.5-5.1) 09/25/23 05:50 Chloride 106 mmol/L (98-107) 09/25/23 05:50 Carbon Dioxide 32.9 mmol/L (21-32) H 09/25/23 05:50 BUN 13 mg/dL (7-18) 09/25/23 05:50 Creatinine 0.58 mg/dL (0.55-1.02) 09/25/23 05:50 Est GFR (MDRD) Af Amer > 60 (>60) 09/25/23 05:50 Est GFR (MDRD) Non-Af > 60 (>60) 09/25/23 05:50 Glucose 147 mg/dL (65-99) H 09/25/23 05:50 Lactic Acid 1.9 mmol/L (0.4-2.0) 09/19/23 07:15 Calcium 8.0 mg/dL (8.5-10.1) L 09/25/23 05:50 Corrected Calcium 9.4 mg/dL (8.5-10.1) 09/25/23 05:50 Magnesium 2.1 mg/dL (2.0-2.9) 09/23/23 05:11 Total Bilirubin 0.30 mg/dL (0.2-1.0) 09/25/23 05:50 AST 12 Units/L (15-37) L 09/25/23 05:50 ALT 30 Units/L (12-78) 09/25/23 05:50 Alkaline Phosphatase 85 Units/L (46-116) 09/25/23 05:50 Creatine Kinase 29 Units/L (26-192) 09/17/23 07:55 Troponin I High Sens 7.0 ng/L (4.0-60.0) 09/17/23 07:55 B-Natriuretic Peptide 10.1 pg/mL (0-79) 09/17/23 07:55 Total Protein 5.1 g/dL (6.4-8.2) L 09/25/23 05:50 Albumin 2.3 g/dL (3.4-5.0) L 09/25/23 05:50 Globulin 2.8 g/dL (2.5-4.5) 09/25/23 05:50 Albumin/Globulin Ratio 0.8 Ratio (1.1-2.1) L 09/25/23 05:50 Free T4 1.05 ng/dL (0.76-1.46) 09/20/23 06:05 Free T3 pg/dL 2.0 pg/mL (2.5-4.3) L 09/20/23 06:05 TSH 3rd Generation 0.057 uIU/mL (0.358-3.74) L 09/20/23 06:05 Specimen Type Random urine 09/17/23 08:20 Urine Color Yellow (YELLOW) 09/17/23 08:20 Urine Appearance Clear (CLEAR) 09/17/23 08:20 Urine pH 5.0 (5.0 - 8.0) 09/17/23 08:20 Ur Specific [place] 1.015 (1.000-1.030) 09/17/23 08:20 Urine Protein 2+ (NEGATIVE) 09/17/23 08:20 Urine Glucose (UA) Negative (NEGATIVE) 09/17/23 08:20 Urine Ketones Negative (NEGATIVE) 09/17/23 08:20 Urine Blood Negative (NEGATIVE) 09/17/23 08:20 Urine Nitrite Negative (NEGATIVE) 09/17/23 08:20 Urine Bilirubin Negative (NEGATIVE) 09/17/23 08:20 Urine Urobilinogen Normal (NORMAL) 09/17/23 08:20 Ur Leukocyte Esterase Negative (NEGATIVE) 09/17/23 08:20 Urine RBC None seen /HPF (0-3) 09/17/23 08:20 Urine WBC 0-2 /HPF (0-5) 09/17/23 08:20 Ur Squamous Epith Cells Moderate /HPF (NEGATIVE) 09/17/23 08:20 Urine Bacteria Negative /HPF (NEGATIVE) 09/17/23 08:20 Ur Culture Indicated? No/not indicated 09/17/23 08:20 SARS-CoV-2 (PCR) Negative (NEGATIVE) 09/17/23 08:12 Influenza Type A (PCR) Negative (NEGATIVE) 09/17/23 08:12 Influenza Type B (PCR) Negative (NEGATIVE) 09/17/23 08:12 RSV (PCR) Negative (NEGATIVE) 09/17/23 08:12 Resp Viral Panel (PCR) See scanned report 09/17/23 16:26 Radiology Reviewed: Yes Plan (1) Pneumonia: Status: Acute Qualifiers: Laterality: left Plan: Follow-up AIT sputum cultures and regular sputum cultures. Discontinue IV Zosyn and start Invanz 1 g IV daily. Today will be day 1 for IV Invanz. (2) Hypoxia: Status: Acute Plan: Supple O2 via nasal cannula and respiratory consultation. Treat left lobe pneumonia and COPD exacerbation. (3) Respiratory insufficiency: Status: Acute Plan: Continue Trelegy Ellipta, montelukast 10 mg daily (4) Hypomagnesemia: Status: Acute Plan: Start magnesium oxide 400 mg p.o. twice daily. (5) COPD exacerbation: Status: Acute Plan: The patient received Solu-Medrol 125 mg IV x 1 in the emergency department and then was started on 40 mg IV twice daily. I will go ahead and increase her to 60 mg IV twice daily to see if we can get her hypoxia improved sooner. (6) Elevated lactic acid level: Status: Acute Plan: Repeat lactic acid per sepsis protocol. (7) Thrombocytopenia: Status: Acute Plan: Follow daily platelet level. GI protection with Protonix 40 mg IV twice daily. (8) Atrial fibrillation: Status: Chronic Qualifiers: Atrial fibrillation type: unspecified Qualified Code(s): I48.91 - Unspecified atrial fibrillation Plan: Continue carvedilol 25 mg p.o. twice daily and Eliquis 5 mg p.o. twice daily. (9) History of CVA with residual deficit: Status: Acute (10) Chronic low back pain: Status: Acute Plan: The patient may resume her [place]. (11) Primary hypertension: Status: Acute Plan: Add losartan 50 mg 1 p.o. daily. Recheck blood pressure tomorrow morning.
[2023-09-26 06:11] LABS: BASOPHILS % (AUTO) 0.2 % (0.2-1.0); HEMATOCRIT 37.3 % (36.0-47.0); HEMOGLOBIN 11.8 g/dL (12.0-16.0); LYMPHOCYTES # (AUTO) 0.9 X10^3/uL (1.3-2.9); LYMPHOCYTES % (AUTO) 5.2 % (21.0-51.0); MEAN CORPUSCULAR HEMOGLOBIN 26.5 pg (27.0-34.0); MEAN CORPUSCULAR HGB CONC 31.6 g/dL (33.0-35.0); MEAN CORPUSCULAR VOLUME 83.8 fL (80.0-100.0); MEAN PLATELET VOLUME 9.1 fL (7.4-11.0); MONOCYTES # (AUTO) 0.9 x10^3/uL (0.3-0.8); MONOCYTES % (AUTO) 5.2 % (0.0-13.0); NEUTROPHILS # (AUTO) 15.6 x10^3/uL (2.2-4.8); NEUTROPHILS % (AUTO) 89.4 % (42.0-75.0); PLATELET COUNT 190 X10^3/uL (150.0-450.0); RED BLOOD COUNT 4.45 X10^6/uL (3.5-5.4); RED CELL DISTRIBUTION WIDTH 22.9 % (11.6-16.5); WHITE BLOOD COUNT 17.5 X10^3/uL (3.6-10.0)
[2023-09-26 06:43] LABS: ALBUMIN 2.3 g/dL (3.4-5.0); ASPARTATE AMINO TRANSFERASE 10 Units/L (15-37); CALCIUM 7.9 mg/dL (8.5-10.1); CARBON DIOXIDE 33.6 mmol/L (21-32); CHLORIDE 107 mmol/L (98-107); COR CA(FOR HYPOALB) 9.3 mg/dL (8.5-10.1); COR NA(FOR HYPERGLY) 144 mmol/L (136-145); CREATININE 0.66 mg/dL (0.55-1.02); GLUCOSE 141 mg/dL (65-99); POTASSIUM 4.2 mmol/L (3.5-5.1); SODIUM 143 mmol/L (136-145); eGFR NON BLACK RACES > 60 (>60)
[2023-09-26 06:44] LABS: ANISOCYTOSIS 2+; BAND NEUTROPHILS % 2 % (0-10); PLATELET MORPHOLOGY COMMENT NORMAL (NORMAL)
[2023-09-26 06:45] LABS: OVALOCYTES SLIGHT; SCHISTOCYTES SLIGHT
--- NOTE | 2023-09-26 08:35 | RAD ---
EXAM:CHEST, 1 VIEWHISTORY:PNEUMONIA ; ASTHMA, COPD, DVA, GERD, RENAL DISEASE, BLOOD CLOTS SX: ABD SURG, APPY, HYST, ROTATOR CUFF, BACK, HEART ABLATIONCOMPARISON:09/25/2023TECHNIQUE:O ne viewFINDINGS:Cardiomegaly is present. Worsening infiltrate in the left lower lobe. No pneumothorax. Hilar and mediastinal structures and bony structures are unchanged. Previous ACDF. Slightly hyperinflated lungs. Opacities in the right upper lobe may represent scarring.IMPRESSION:Worsening infiltrate in the left lower lobe. Follow-up is recommended.THIS IS AN ELECTRONICALLY VERIFIED FINAL REPORT09/26/2023 8:31 AM - Electronically signed by Radu Stone MD
[2023-09-26 12:38] LABS: ALANINE AMINOTRANSFERASE 31 Units/L (12-78); ALKALINE PHOSPHATASE 81 Units/L (46-116); TOTAL PROTEIN 5.2 g/dL (6.4-8.2)
[2023-09-26 13:06] LABS: BLOOD UREA NITROGEN 15 mg/dL (7-18)
--- NOTE | 2023-09-26 16:16 | PCM.PROG ---
Progress Note Progress Note for Day of Date of Exam: 09/26/23 Subjective Subjective: The patient is alert and awake at this time. She reports having a worse night last night. I see that her chest x-ray shows worsening left lung infiltrate, and her white blood cell count has gone from 12,000-17,500. Her neutrophil count has also been going up since yesterday. I am concerned that she could be developing nosocomial pneumonia or possibly underlying MRSA pneumonia. I will go ahead and add IV Diflucan today since she has been on antibiotics for around a week now. There could be an increased amount of yeast in the sputum causing the symptoms. We will repeat CBC and another portable chest x-ray tomorrow morning to see if it improves. If it is not, I will go ahead and start empirically treating her for possible underlying MRSA as well. Past Medical Family Social History Allergies: Allergies sulfacetamide Allergy (Unknown, Verified 09/17/23 07:40) Reason: Drug allergy Sulfa (Sulfonamide Antibiotics) [SULFA] Allergy (Verified 09/17/23 07:40) Review of Systems ROS: No change since H&P Vital Signs and I&O's Vital Signs: Vital Signs Temperature 98.0 F Pulse Rate [Left Brachial] 64 Respiratory Rate 20 Respiratory Rate 18 Blood Pressure [Left Arm] 136/74 O2 Sat by Pulse Oximetry 91 Intake and Output: Intake & Output 09/24/23 09/25/23 09/26/23 09/27/23 11:59 11:59 11:59 11:59 Intake Total 3754 / 3754 4297 / 4297 4976 / 4976 1031 / 1031 Balance 3754 / 3754 4297 / 4297 4976 / 4976 1031 / 1031 Physical Exam Oriented: Normal, Time, Person and Place Eyes: Normal Ear: Normal Nose: Normal Throat: Normal Respiratory: Generalized and Rhonchi Cardiovascular: Normal Auscultation: Bowel Sounds: Normal Tenderness: Normal Skin: Normal Musculoskeletal: Normal Psychiatric: Normal Mood Description: Calm Affect: Normal Speech Pattern: Clear and Appropriate Laboratory and Diagnostics 09/26/23 05:20 09/26/23 05:20 Labs: 09/17/23 07:55 Blood Blood Culture - Final 09/17/23 08:04 Blood Blood Culture - Final 09/19/23 10:15 Sputum - Expectorated Sputum Sputum Culture - Final Escherichia Coli Esbl 09/19/23 10:15 Sputum - Expectorated Sputum - Final Laboratory WBC 17.5 X10^3/uL (3.6-10.0) H 09/26/23 05:20 RBC 4.45 X10^6/uL (3.5-5.4) 09/26/23 05:20 Hgb 11.8 g/dL (12.0-16.0) L 09/26/23 05:20 Hct 37.3 % (36.0-47.0) 09/26/23 05:20 MCV 83.8 fL (80.0-100.0) 09/26/23 05:20 MCH 26.5 pg (27.0-34.0) L 09/26/23 05:20 MCHC 31.6 g/dL (33.0-35.0) L 09/26/23 05:20 RDW 22.9 % (11.6-16.5) H 09/26/23 05:20 Plt Count 190 X10^3/uL (150.0-450.0) 09/26/23 05:20 Plt Count Comment Adequate (ADEQUATE) 09/26/23 05:20 MPV 9.1 fL (7.4-11.0) 09/26/23 05:20 Neut % (Auto) 89.4 % (42.0-75.0) H 09/26/23 05:20 Lymph % (Auto) 5.2 % (21.0-51.0) L 09/26/23 05:20 [place] % (Auto) 5.2 % (0.0-13.0) 09/26/23 05:20 Eos % (Auto) 0.0 % (0.9-2.9) L 09/26/23 05:20 Baso % (Auto) 0.2 % (0.2-1.0) 09/26/23 05:20 Neut # (Auto) 15.6 x10^3/uL (2.2-4.8) H 09/26/23 05:20 Lymph # (Auto) 0.9 X10^3/uL (1.3-2.9) L 09/26/23 05:20 [place] # (Auto) 0.9 x10^3/uL (0.3-0.8) H 09/26/23 05:20 Eos # (Auto) 0.0 x10^3/uL (0.0-0.2) 09/26/23 05:20 Baso # (Auto) 0.0 X10^3/uL (0.0-0.1) 09/26/23 05:20 Absolute Nucleated RBC 0.0 /100WBC 09/26/23 05:20 Total Counted 100 09/26/23 05:20 Neutrophils % (Manual) 77 % (39-76) H 09/26/23 05:20 Band Neutrophils % 2 % (0-10) 09/26/23 05:20 Lymphocytes % (Manual) 10 % (13-43) L 09/26/23 05:20 Monocytes % (Manual) 11 % (4-9) H 09/26/23 05:20 Eosinophils % (Manual) 0 % (0-6) 09/22/23 05:20 Basophils % (Manual) 0 % (0-1) 09/22/23 05:20 Metamyelocytes % 1 09/24/23 04:10 Plt Morphology Comment Normal (NORMAL) 09/26/23 05:20 RBC Morphology Abnormal (NORMAL) A 09/26/23 05:20 Hypochromasia Slight A 09/21/23 06:05 Anisocytosis 2+ A 09/26/23 05:20 Ovalocytes Slight A 09/26/23 05:20 Schistocytes Slight A 09/26/23 05:20 PT 13.8 SECONDS (11.8-14.3) 09/17/23 07:55 INR Target Range - 09/17/23 07:55 INR 1.08 (0.8-1.3) 09/17/23 07:55 APTT 25.2 SECONDS (22.9-36.5) 09/17/23 07:55 PTT Comment - 09/17/23 07:55 Sample Site Lrad 09/17/23 07:54 ABG pH 7.430 (7.35-7.45) 09/17/23 07:54 ABG pCO2 38.0 mmHg (35.0-45.0) 09/17/23 07:54 ABG pO2 49.0 mmHg (80.0-100.0) L* 09/17/23 07:54 ABG HCO3 25.2 mmol/L (22-26) 09/17/23 07:54 ABG O2 Saturation 85.0 % (90-100) L 09/17/23 07:54 ABG Base Excess 1.0 mmol/L (-2.0-2.0) 09/17/23 07:54 Reagan Test Pos 09/17/23 07:54 A-a Gradient 103.0 mmHg 09/17/23 07:54 FiO2 28.0 09/17/23 07:54 Blood Gas Comments Pt negro well. kg/eb 09/17/23 07:54 Sodium 143 mmol/L (136-145) 09/26/23 05:20 Corrected Sodium 144 mmol/L (136-145) 09/26/23 05:20 Potassium 4.2 mmol/L (3.5-5.1) 09/26/23 05:20 Chloride 107 mmol/L (98-107) 09/26/23 05:20 Carbon Dioxide 33.6 mmol/L (21-32) H 09/26/23 05:20 BUN 15 mg/dL (7-18) 09/26/23 05:20 Creatinine 0.66 mg/dL (0.55-1.02) 09/26/23 05:20 Est GFR (MDRD) Af Amer > 60 (>60) 09/26/23 05:20 Est GFR (MDRD) Non-Af > 60 (>60) 09/26/23 05:20 Glucose 141 mg/dL (65-99) H 09/26/23 05:20 Lactic Acid 1.9 mmol/L (0.4-2.0) 09/19/23 07:15 Calcium 7.9 mg/dL (8.5-10.1) L 09/26/23 05:20 Corrected Calcium 9.3 mg/dL (8.5-10.1) 09/26/23 05:20 Magnesium 2.1 mg/dL (2.0-2.9) 09/23/23 05:11 Total Bilirubin 0.30 mg/dL (0.2-1.0) 09/26/23 05:20 AST 10 Units/L (15-37) L 09/26/23 05:20 ALT 31 Units/L (12-78) 09/26/23 05:20 Alkaline Phosphatase 81 Units/L (46-116) 09/26/23 05:20 Creatine Kinase 29 Units/L (26-192) 09/17/23 07:55 Troponin I High Sens 7.0 ng/L (4.0-60.0) 09/17/23 07:55 B-Natriuretic Peptide 10.1 pg/mL (0-79) 09/17/23 07:55 Total Protein 5.2 g/dL (6.4-8.2) L 09/26/23 05:20 Albumin 2.3 g/dL (3.4-5.0) L 09/26/23 05:20 Globulin 2.9 g/dL (2.5-4.5) 09/26/23 05:20 Albumin/Globulin Ratio 0.8 Ratio (1.1-2.1) L 09/26/23 05:20 Free T4 1.05 ng/dL (0.76-1.46) 09/20/23 06:05 Free T3 pg/dL 2.0 pg/mL (2.5-4.3) L 09/20/23 06:05 TSH 3rd Generation 0.057 uIU/mL (0.358-3.74) L 09/20/23 06:05 Specimen Type Random urine 09/17/23 08:20 Urine Color Yellow (YELLOW) 09/17/23 08:20 Urine Appearance Clear (CLEAR) 09/17/23 08:20 Urine pH 5.0 (5.0 - 8.0) 09/17/23 08:20 Ur Specific [place] 1.015 (1.000-1.030) 09/17/23 08:20 Urine Protein 2+ (NEGATIVE) 09/17/23 08:20 Urine Glucose (UA) Negative (NEGATIVE) 09/17/23 08:20 Urine Ketones Negative (NEGATIVE) 09/17/23 08:20 Urine Blood Negative (NEGATIVE) 09/17/23 08:20 Urine Nitrite Negative (NEGATIVE) 09/17/23 08:20 Urine Bilirubin Negative (NEGATIVE) 09/17/23 08:20 Urine Urobilinogen Normal (NORMAL) 09/17/23 08:20 Ur Leukocyte Esterase Negative (NEGATIVE) 09/17/23 08:20 Urine RBC None seen /HPF (0-3) 09/17/23 08:20 Urine WBC 0-2 /HPF (0-5) 09/17/23 08:20 Ur Squamous Epith Cells Moderate /HPF (NEGATIVE) 09/17/23 08:20 Urine Bacteria Negative /HPF (NEGATIVE) 09/17/23 08:20 Ur Culture Indicated? No/not indicated 09/17/23 08:20 SARS-CoV-2 (PCR) Negative (NEGATIVE) 09/17/23 08:12 Influenza Type A (PCR) Negative (NEGATIVE) 09/17/23 08:12 Influenza Type B (PCR) Negative (NEGATIVE) 09/17/23 08:12 RSV (PCR) Negative (NEGATIVE) 09/17/23 08:12 Resp Viral Panel (PCR) See scanned report 09/17/23 16:26 Plan (1) Pneumonia: Status: Acute Qualifiers: Laterality: left Plan: Follow-up AIT sputum cultures and regular sputum cultures. Discontinue IV Zosyn and start Invanz 1 g IV daily. Today will be day 1 for IV Invanz. (2) Hypoxia: Status: Acute Plan: Supple O2 via nasal cannula and respiratory consultation. Treat left lobe pneumonia and COPD exacerbation. (3) Respiratory insufficiency: Status: Acute Plan: Continue Trelegy Ellipta, montelukast 10 mg daily (4) Hypomagnesemia: Status: Acute Plan: Start magnesium oxide 400 mg p.o. twice daily. (5) COPD exacerbation: Status: Acute Plan: The patient received Solu-Medrol 125 mg IV x 1 in the emergency department and then was started on 40 mg IV twice daily. I will go ahead and increase her to 60 mg IV twice daily to see if we can get her hypoxia improved sooner. (6) Elevated lactic acid level: Status: Acute Plan: Repeat lactic acid per sepsis protocol. (7) Thrombocytopenia: Status: Acute Plan: Follow daily platelet level. GI protection with Protonix 40 mg IV twice daily. (8) Atrial fibrillation: Status: Chronic Qualifiers: Atrial fibrillation type: unspecified Qualified Code(s): I48.91 - Unspecified atrial fibrillation Plan: Continue carvedilol 25 mg p.o. twice daily and Eliquis 5 mg p.o. twice daily. (9) History of CVA with residual deficit: Status: Acute (10) Chronic low back pain: Status: Acute Plan: The patient may resume her [place]. (11) Primary hypertension: Status: Acute Plan: Add losartan 50 mg 1 p.o. daily. Recheck blood pressure tomorrow morning.
[2023-09-26] MEDS: DIFLUCAN 100 MG IV (MIX by PHARMACY)* 100 MG/50 ML BAG IV SCH (17:14)
--- NOTE | 2023-09-27 05:41 | RAD ---
PROCEDURE: Chest X-ray 1 View. HISTORY: PNEUMONIA ; ASTHMA, COPD, DVA, GERD, RENAL DISEASE, BLOOD CLOTS SX: ABD SURG, APPY, HYST, RO TATOR CUFF, BACK, HEART ABLATION . TECHNIQUE: AP portable view. COMPARISON: 09/26/2023. TECHNICAL QUALITY: Satisfactory. FINDINGS: Normal size heart. Mediastinum and hilar regions show no masses or lymphadenopathy. Normal central vascularity. Minimal improvement in the patient's pneumonia left base with continued consolidation with associated discoid atelectasis. Right lung reed clear. No pleural fluid. No acute bony abnormality. IMPRESSION: Minimal improvement in the patient's left basilar pneumonia. THIS IS AN ELECTRONICALLY VERIFIED FINAL REPORT 09/27/2023 5:38 AM - Electronically signed by Erik Longo MD
[2023-09-27 06:20] LABS: BASOPHILS % (AUTO) 0.2 % (0.2-1.0); HEMOGLOBIN 12.1 g/dL (12.0-16.0); LYMPHOCYTES # (AUTO) 0.8 X10^3/uL (1.3-2.9); LYMPHOCYTES % (AUTO) 4.8 % (21.0-51.0); MEAN CORPUSCULAR HEMOGLOBIN 26.9 pg (27.0-34.0); MEAN CORPUSCULAR HGB CONC 31.9 g/dL (33.0-35.0); MEAN CORPUSCULAR VOLUME 84.3 fL (80.0-100.0); MEAN PLATELET VOLUME 9.2 fL (7.4-11.0); MONOCYTES # (AUTO) 0.6 x10^3/uL (0.3-0.8); MONOCYTES % (AUTO) 3.5 % (0.0-13.0); NEUTROPHILS # (AUTO) 14.8 x10^3/uL (2.2-4.8); NEUTROPHILS % (AUTO) 91.5 % (42.0-75.0); PLATELET COUNT 193 X10^3/uL (150.0-450.0); RED BLOOD COUNT 4.51 X10^6/uL (3.5-5.4); RED CELL DISTRIBUTION WIDTH 22.9 % (11.6-16.5); WHITE BLOOD COUNT 16.2 X10^3/uL (3.6-10.0)
[2023-09-27 06:52] LABS: CHLORIDE 104 mmol/L (98-107); POTASSIUM 4.4 mmol/L (3.5-5.1); SODIUM 140 mmol/L (136-145)
[2023-09-27 06:53] LABS: ALBUMIN 2.4 g/dL (3.4-5.0); CALCIUM 8.1 mg/dL (8.5-10.1); CARBON DIOXIDE 33.3 mmol/L (21-32); COR CA(FOR HYPOALB) 9.4 mg/dL (8.5-10.1); CREATININE 0.67 mg/dL (0.55-1.02); eGFR NON BLACK RACES > 60 (>60)
[2023-09-27 07:03] LABS: ANISOCYTOSIS 2+; BAND NEUTROPHILS % 1 % (0-10); PLATELET MORPHOLOGY COMMENT NORMAL (NORMAL)
[2023-09-27 07:13] LABS: BLOOD UREA NITROGEN 16 mg/dL (7-18); COR NA(FOR HYPERGLY) 141 mmol/L (136-145); GLUCOSE 128 mg/dL (65-99)
[2023-09-27 08:56] LABS: ALANINE AMINOTRANSFERASE 33 Units/L (12-78); ALKALINE PHOSPHATASE 83 Units/L (46-116); ASPARTATE AMINO TRANSFERASE 16 Units/L (15-37)
[2023-09-27 08:57] LABS: TOTAL PROTEIN 5.3 g/dL (6.4-8.2)
[2023-09-27] MEDS: DIFLUCAN 200 MG IV PREMIX* 200 MG/100 ML BAG IV SCH (10:58)
--- NOTE | 2023-09-27 16:55 | PCM.PROG ---
Progress Note Progress Note for Day of Date of Exam: 09/27/23 Subjective Subjective: The patient is alert and awake at this time. She states that she did not have a real good night and does not feel that well this morning. Her chest x-ray shows that she has improved today, and her white blood cell count did go down to 16,100 from just over 17,000 yesterday. We will continue her current treatment and repeat the chest x-ray in the morning. If she continues to improve, her white count normalizes, and she is afebrile, we plan to discharge her home tomorrow or the following day. Past Medical Family Social History Allergies: Allergies sulfacetamide Allergy (Unknown, Verified 09/17/23 07:40) Reason: Drug allergy Sulfa (Sulfonamide Antibiotics) [SULFA] Allergy (Verified 09/17/23 07:40) Review of Systems ROS: No change since H&P Vital Signs and I&O's Vital Signs: Vital Signs Temperature 97.9 F Temperature 97.6 F Pulse Rate [Left Brachial] 73 Pulse Rate [Left Brachial] 73 Pulse Rate 66 Respiratory Rate 20 Respiratory Rate 22 Blood Pressure [Left Arm] 140/73 Blood Pressure [Left Arm] 171/73 O2 Sat by Pulse Oximetry 94 O2 Sat by Pulse Oximetry 98 O2 Sat by Pulse Oximetry 96 Intake and Output: Intake & Output 09/25/23 09/26/23 09/27/23 09/28/23 11:59 11:59 11:59 11:59 Intake Total 4297 / 4297 4976 / 4976 2588 / 2588 1574 / 1574 Balance 4297 / 4297 4976 / 4976 2588 / 2588 1574 / 1574 Physical Exam Oriented: Normal, Time, Person and Place Eyes: Normal Ear: Normal Nose: Normal Throat: Normal Respiratory: Generalized and Rhonchi Cardiovascular: Normal Auscultation: Bowel Sounds: Normal Tenderness: Normal Skin: Normal Musculoskeletal: Normal Psychiatric: Normal Mood Description: Calm Affect: Normal Speech Pattern: Clear and Appropriate Laboratory and Diagnostics 09/27/23 05:34 09/27/23 05:34 Labs: 09/17/23 07:55 Blood Blood Culture - Final 09/17/23 08:04 Blood Blood Culture - Final 09/19/23 10:15 Sputum - Expectorated Sputum Sputum Culture - Final Escherichia Coli Esbl 09/19/23 10:15 Sputum - Expectorated Sputum - Final Laboratory WBC 16.2 X10^3/uL (3.6-10.0) H 09/27/23 05:34 RBC 4.51 X10^6/uL (3.5-5.4) 09/27/23 05:34 Hgb 12.1 g/dL (12.0-16.0) 09/27/23 05:34 Hct 38.0 % (36.0-47.0) 09/27/23 05:34 MCV 84.3 fL (80.0-100.0) 09/27/23 05:34 MCH 26.9 pg (27.0-34.0) L 09/27/23 05:34 MCHC 31.9 g/dL (33.0-35.0) L 09/27/23 05:34 RDW 22.9 % (11.6-16.5) H 09/27/23 05:34 Plt Count 193 X10^3/uL (150.0-450.0) 09/27/23 05:34 Plt Count Comment Adequate (ADEQUATE) 09/27/23 05:34 MPV 9.2 fL (7.4-11.0) 09/27/23 05:34 Neut % (Auto) 91.5 % (42.0-75.0) H 09/27/23 05:34 Lymph % (Auto) 4.8 % (21.0-51.0) L 09/27/23 05:34 [place] % (Auto) 3.5 % (0.0-13.0) 09/27/23 05:34 Eos % (Auto) 0.0 % (0.9-2.9) L 09/27/23 05:34 Baso % (Auto) 0.2 % (0.2-1.0) 09/27/23 05:34 Neut # (Auto) 14.8 x10^3/uL (2.2-4.8) H 09/27/23 05:34 Lymph # (Auto) 0.8 X10^3/uL (1.3-2.9) L 09/27/23 05:34 [place] # (Auto) 0.6 x10^3/uL (0.3-0.8) 09/27/23 05:34 Eos # (Auto) 0.0 x10^3/uL (0.0-0.2) 09/27/23 05:34 Baso # (Auto) 0.0 X10^3/uL (0.0-0.1) 09/27/23 05:34 Absolute Nucleated RBC 0.0 /100WBC 09/27/23 05:34 Total Counted 100 09/27/23 05:34 Neutrophils % (Manual) 91 % (39-76) H 09/27/23 05:34 Band Neutrophils % 1 % (0-10) 09/27/23 05:34 Lymphocytes % (Manual) 4 % (13-43) L 09/27/23 05:34 Monocytes % (Manual) 4 % (4-9) 09/27/23 05:34 Eosinophils % (Manual) 0 % (0-6) 09/22/23 05:20 Basophils % (Manual) 0 % (0-1) 09/22/23 05:20 Metamyelocytes % 1 09/24/23 04:10 Plt Morphology Comment Normal (NORMAL) 09/27/23 05:34 RBC Morphology Abnormal (NORMAL) A 09/27/23 05:34 Hypochromasia Slight A 09/21/23 06:05 Anisocytosis 2+ A 09/27/23 05:34 Ovalocytes Slight A 09/26/23 05:20 Schistocytes Slight A 09/26/23 05:20 PT 13.8 SECONDS (11.8-14.3) 09/17/23 07:55 INR Target Range - 09/17/23 07:55 INR 1.08 (0.8-1.3) 09/17/23 07:55 APTT 25.2 SECONDS (22.9-36.5) 09/17/23 07:55 PTT Comment - 09/17/23 07:55 Sample Site Lrad 09/17/23 07:54 ABG pH 7.430 (7.35-7.45) 09/17/23 07:54 ABG pCO2 38.0 mmHg (35.0-45.0) 09/17/23 07:54 ABG pO2 49.0 mmHg (80.0-100.0) L* 09/17/23 07:54 ABG HCO3 25.2 mmol/L (22-26) 09/17/23 07:54 ABG O2 Saturation 85.0 % (90-100) L 09/17/23 07:54 ABG Base Excess 1.0 mmol/L (-2.0-2.0) 09/17/23 07:54 Reagan Test Pos 09/17/23 07:54 A-a Gradient 103.0 mmHg 09/17/23 07:54 FiO2 28.0 09/17/23 07:54 Blood Gas Comments Pt negro well. kg/eb 09/17/23 07:54 Sodium 140 mmol/L (136-145) 09/27/23 05:34 Corrected Sodium 141 mmol/L (136-145) 09/27/23 05:34 Potassium 4.4 mmol/L (3.5-5.1) 09/27/23 05:34 Chloride 104 mmol/L (98-107) 09/27/23 05:34 Carbon Dioxide 33.3 mmol/L (21-32) H 09/27/23 05:34 BUN 16 mg/dL (7-18) 09/27/23 05:34 Creatinine 0.67 mg/dL (0.55-1.02) 09/27/23 05:34 Est GFR (MDRD) Af Amer > 60 (>60) 09/27/23 05:34 Est GFR (MDRD) Non-Af > 60 (>60) 09/27/23 05:34 Glucose 128 mg/dL (65-99) H 09/27/23 05:34 POC Glucose (mg/dL) 130 mg/dL (65-99) H 09/27/23 05:34 Lactic Acid 1.9 mmol/L (0.4-2.0) 09/19/23 07:15 Calcium 8.1 mg/dL (8.5-10.1) L 09/27/23 05:34 Corrected Calcium 9.4 mg/dL (8.5-10.1) 09/27/23 05:34 Magnesium 2.1 mg/dL (2.0-2.9) 09/23/23 05:11 Total Bilirubin 0.30 mg/dL (0.2-1.0) 09/27/23 05:34 AST 16 Units/L (15-37) 09/27/23 05:34 ALT 33 Units/L (12-78) 09/27/23 05:34 Alkaline Phosphatase 83 Units/L (46-116) 09/27/23 05:34 Creatine Kinase 29 Units/L (26-192) 09/17/23 07:55 Troponin I High Sens 7.0 ng/L (4.0-60.0) 09/17/23 07:55 B-Natriuretic Peptide 10.1 pg/mL (0-79) 09/17/23 07:55 Total Protein 5.3 g/dL (6.4-8.2) L 09/27/23 05:34 Albumin 2.4 g/dL (3.4-5.0) L 09/27/23 05:34 Globulin 2.9 g/dL (2.5-4.5) 09/27/23 05:34 Albumin/Globulin Ratio 0.8 Ratio (1.1-2.1) L 09/27/23 05:34 Free T4 1.05 ng/dL (0.76-1.46) 09/20/23 06:05 Free T3 pg/dL 2.0 pg/mL (2.5-4.3) L 09/20/23 06:05 TSH 3rd Generation 0.057 uIU/mL (0.358-3.74) L 09/20/23 06:05 Specimen Type Random urine 09/17/23 08:20 Urine Color Yellow (YELLOW) 09/17/23 08:20 Urine Appearance Clear (CLEAR) 09/17/23 08:20 Urine pH 5.0 (5.0 - 8.0) 09/17/23 08:20 Ur Specific [place] 1.015 (1.000-1.030) 09/17/23 08:20 Urine Protein 2+ (NEGATIVE) 09/17/23 08:20 Urine Glucose (UA) Negative (NEGATIVE) 09/17/23 08:20 Urine Ketones Negative (NEGATIVE) 09/17/23 08:20 Urine Blood Negative (NEGATIVE) 09/17/23 08:20 Urine Nitrite Negative (NEGATIVE) 09/17/23 08:20 Urine Bilirubin Negative (NEGATIVE) 09/17/23 08:20 Urine Urobilinogen Normal (NORMAL) 09/17/23 08:20 Ur Leukocyte Esterase Negative (NEGATIVE) 09/17/23 08:20 Urine RBC None seen /HPF (0-3) 09/17/23 08:20 Urine WBC 0-2 /HPF (0-5) 09/17/23 08:20 Ur Squamous Epith Cells Moderate /HPF (NEGATIVE) 09/17/23 08:20 Urine Bacteria Negative /HPF (NEGATIVE) 09/17/23 08:20 Ur Culture Indicated? No/not indicated 09/17/23 08:20 SARS-CoV-2 (PCR) Negative (NEGATIVE) 09/17/23 08:12 Influenza Type A (PCR) Negative (NEGATIVE) 09/17/23 08:12 Influenza Type B (PCR) Negative (NEGATIVE) 09/17/23 08:12 RSV (PCR) Negative (NEGATIVE) 09/17/23 08:12 Resp Viral Panel (PCR) See scanned report 09/17/23 16:26 Radiology Reviewed: Yes Plan (1) Pneumonia: Status: Acute Qualifiers: Laterality: left Narrative Support Text: Improving Plan: Follow-up AIT sputum cultures and regular sputum cultures. Discontinue IV Zosyn and start Invanz 1 g IV daily. Today will be day 1 for IV Invanz. (2) Hypoxia: Status: Acute Plan: Supple O2 via nasal cannula and respiratory consultation. Treat left lobe pneumonia and COPD exacerbation. (3) Respiratory insufficiency: Status: Acute Plan: Continue Trelegy Ellipta, montelukast 10 mg daily (4) Hypomagnesemia: Status: Acute Plan: Start magnesium oxide 400 mg p.o. twice daily. (5) COPD exacerbation: Status: Acute Plan: The patient received Solu-Medrol 125 mg IV x 1 in the emergency department and then was started on 40 mg IV twice daily. I will go ahead and increase her to 60 mg IV twice daily to see if we can get her hypoxia improved sooner. (6) Elevated lactic acid level: Status: Acute Plan: Repeat lactic acid per sepsis protocol. (7) Thrombocytopenia: Status: Acute Plan: Follow daily platelet level. GI protection with Protonix 40 mg IV twice daily. (8) Atrial fibrillation: Status: Chronic Qualifiers: Atrial fibrillation type: unspecified Qualified Code(s): I48.91 - Unspecified atrial fibrillation Plan: Continue carvedilol 25 mg p.o. twice daily and Eliquis 5 mg p.o. twice daily. (9) History of CVA with residual deficit: Status: Acute (10) Chronic low back pain: Status: Acute Plan: The patient may resume her [place]. (11) Primary hypertension: Status: Acute Plan: Add losartan 50 mg 1 p.o. daily. Recheck blood pressure tomorrow morning.
[2023-09-28 06:42] LABS: BASOPHILS % (AUTO) 0.2 % (0.2-1.0); HEMATOCRIT 36.4 % (36.0-47.0); HEMOGLOBIN 11.6 g/dL (12.0-16.0); LYMPHOCYTES # (AUTO) 0.9 X10^3/uL (1.3-2.9); LYMPHOCYTES % (AUTO) 4.7 % (21.0-51.0); MEAN CORPUSCULAR HGB CONC 31.9 g/dL (33.0-35.0); MEAN CORPUSCULAR VOLUME 84.5 fL (80.0-100.0); MEAN PLATELET VOLUME 9.4 fL (7.4-11.0); MONOCYTES # (AUTO) 0.9 x10^3/uL (0.3-0.8); MONOCYTES % (AUTO) 4.7 % (0.0-13.0); NEUTROPHILS # (AUTO) 17.9 x10^3/uL (2.2-4.8); NEUTROPHILS % (AUTO) 90.4 % (42.0-75.0); PLATELET COUNT 198 X10^3/uL (150.0-450.0); RED BLOOD COUNT 4.31 X10^6/uL (3.5-5.4); WHITE BLOOD COUNT 19.9 X10^3/uL (3.6-10.0)
--- NOTE | 2023-09-28 06:49 | RAD ---
EXAM: CHEST, 1 VIEW HISTORY: PNEUMONIA; COMPARISON: 09/27/2023 FINDINGS: The cardiomediastinal silhouette is stable. Worsening left basilar airspace opacities. No pneumothorax. No acute osseous abnormality. ACDF hardware. IMPRESSION: Worsening left basilar opacities. THIS IS AN ELECTRONICALLY VERIFIED FINAL REPORT 09/28/2023 6:46 AM - Electronically signed by Arden Katz MD
[2023-09-28 07:02] LABS: ALANINE AMINOTRANSFERASE 30 Units/L (12-78); ALBUMIN 2.4 g/dL (3.4-5.0); ALKALINE PHOSPHATASE 80 Units/L (46-116); ASPARTATE AMINO TRANSFERASE 11 Units/L (15-37); BLOOD UREA NITROGEN 16 mg/dL (7-18); CALCIUM 7.8 mg/dL (8.5-10.1); CARBON DIOXIDE 32.1 mmol/L (21-32); CHLORIDE 105 mmol/L (98-107); COR CA(FOR HYPOALB) 9.1 mg/dL (8.5-10.1); COR NA(FOR HYPERGLY) 141 mmol/L (136-145); CREATININE 0.65 mg/dL (0.55-1.02); GLUCOSE 136 mg/dL (65-99); POTASSIUM 4.5 mmol/L (3.5-5.1); SODIUM 140 mmol/L (136-145); eGFR NON BLACK RACES > 60 (>60)
[2023-09-28 07:18] LABS: ANISOCYTOSIS 2+; BAND NEUTROPHILS % 2 % (0-10); PLATELET MORPHOLOGY COMMENT NORMAL (NORMAL)
[2023-09-28] MEDS: ZOFRAN INJ 4 MG VIAL IVP PRN (11:00)
[2023-09-28] MEDS: ZYVOX 600MG IV 600 MG/300 ML BAG IV SCH (13:32)
--- NOTE | 2023-09-28 21:34 | PCM.PROG ---
Progress Note Progress Note for Day of Date of Exam: 09/28/23 Subjective Subjective: The patient is alert and awake at this time. She states that she does not feel as good this morning. Her white blood cell count is going up a little over 19,000. Her chest x-ray shows a worsening left lower lobe infiltrate. I will go ahead and add Zyvox 600 mg IV twice daily for coverage of MRSA. I will recheck sputum culture today and AIT sputum as well. Repeat labs and chest x-ray again tomorrow. I will continue her on IV Invanz and fluconazole since she has been on antibiotics long-term. Her blood pressure is also elevated and uncontrolled, so I will increase her losartan from 50 mg daily to 100 mg daily. Recheck blood pressure tomorrow. Past Medical Family Social History Allergies: Allergies sulfacetamide Allergy (Unknown, Verified 09/17/23 07:40) Reason: Drug allergy Sulfa (Sulfonamide Antibiotics) [SULFA] Allergy (Verified 09/17/23 07:40) Review of Systems ROS: No change since H&P Vital Signs and I&O's Vital Signs: Vital Signs Temperature 98.1 F Pulse Rate [Left Brachial] 76 Respiratory Rate 22 Respiratory Rate 16 Respiratory Rate 20 Blood Pressure [Left Arm] 158/89 O2 Sat by Pulse Oximetry 97 Intake and Output: Intake & Output 09/26/23 09/27/23 09/28/23 09/29/23 11:59 11:59 11:59 11:59 Intake Total 4976 / 4976 2588 / 2588 3619 / 3619 1221 / 1221 Balance 4976 / 4976 2588 / 2588 3619 / 3619 1221 / 1221 Physical Exam Oriented: Normal, Time, Person and Place Eyes: Normal Ear: Normal Nose: Normal Throat: Normal Respiratory: Generalized and Rhonchi Cardiovascular: Normal Auscultation: Bowel Sounds: Normal Tenderness: Normal Skin: Normal Musculoskeletal: Normal Psychiatric: Normal Mood Description: Calm Affect: Normal Speech Pattern: Clear and Appropriate Laboratory and Diagnostics 09/28/23 05:50 09/28/23 05:50 Labs: 09/28/23 13:40 Sputum - Expectorated Sputum - Final 09/17/23 07:55 Blood Blood Culture - Final 09/17/23 08:04 Blood Blood Culture - Final 09/19/23 10:15 Sputum - Expectorated Sputum Sputum Culture - Final Escherichia Coli Esbl 09/19/23 10:15 Sputum - Expectorated Sputum - Final Laboratory WBC 19.9 X10^3/uL (3.6-10.0) H 09/28/23 05:50 RBC 4.31 X10^6/uL (3.5-5.4) 09/28/23 05:50 Hgb 11.6 g/dL (12.0-16.0) L 09/28/23 05:50 Hct 36.4 % (36.0-47.0) 09/28/23 05:50 MCV 84.5 fL (80.0-100.0) 09/28/23 05:50 MCH 27.0 pg (27.0-34.0) 09/28/23 05:50 MCHC 31.9 g/dL (33.0-35.0) L 09/28/23 05:50 RDW 23.0 % (11.6-16.5) H 09/28/23 05:50 Plt Count 198 X10^3/uL (150.0-450.0) 09/28/23 05:50 Plt Count Comment Adequate (ADEQUATE) 09/28/23 05:50 MPV 9.4 fL (7.4-11.0) 09/28/23 05:50 Neut % (Auto) 90.4 % (42.0-75.0) H 09/28/23 05:50 Lymph % (Auto) 4.7 % (21.0-51.0) L 09/28/23 05:50 [place] % (Auto) 4.7 % (0.0-13.0) 09/28/23 05:50 Eos % (Auto) 0.0 % (0.9-2.9) L 09/28/23 05:50 Baso % (Auto) 0.2 % (0.2-1.0) 09/28/23 05:50 Neut # (Auto) 17.9 x10^3/uL (2.2-4.8) H 09/28/23 05:50 Lymph # (Auto) 0.9 X10^3/uL (1.3-2.9) L 09/28/23 05:50 [place] # (Auto) 0.9 x10^3/uL (0.3-0.8) H 09/28/23 05:50 Eos # (Auto) 0.0 x10^3/uL (0.0-0.2) 09/28/23 05:50 Baso # (Auto) 0.0 X10^3/uL (0.0-0.1) 09/28/23 05:50 Absolute Nucleated RBC 0.0 /100WBC 09/28/23 05:50 Total Counted 100 09/28/23 05:50 Neutrophils % (Manual) 83 % (39-76) H 09/28/23 05:50 Band Neutrophils % 2 % (0-10) 09/28/23 05:50 Lymphocytes % (Manual) 13 % (13-43) 09/28/23 05:50 Monocytes % (Manual) 2 % (4-9) L 09/28/23 05:50 Eosinophils % (Manual) 0 % (0-6) 09/22/23 05:20 Basophils % (Manual) 0 % (0-1) 09/22/23 05:20 Metamyelocytes % 1 09/24/23 04:10 Plt Morphology Comment Normal (NORMAL) 09/28/23 05:50 RBC Morphology Abnormal (NORMAL) A 09/28/23 05:50 Hypochromasia Slight A 09/21/23 06:05 Anisocytosis 2+ A 09/28/23 05:50 Ovalocytes Slight A 09/26/23 05:20 Schistocytes Slight A 09/26/23 05:20 PT 13.8 SECONDS (11.8-14.3) 09/17/23 07:55 INR Target Range - 09/17/23 07:55 INR 1.08 (0.8-1.3) 09/17/23 07:55 APTT 25.2 SECONDS (22.9-36.5) 09/17/23 07:55 PTT Comment - 09/17/23 07:55 Sample Site Lrad 09/17/23 07:54 ABG pH 7.430 (7.35-7.45) 09/17/23 07:54 ABG pCO2 38.0 mmHg (35.0-45.0) 09/17/23 07:54 ABG pO2 49.0 mmHg (80.0-100.0) L* 09/17/23 07:54 ABG HCO3 25.2 mmol/L (22-26) 09/17/23 07:54 ABG O2 Saturation 85.0 % (90-100) L 09/17/23 07:54 ABG Base Excess 1.0 mmol/L (-2.0-2.0) 09/17/23 07:54 Reagan Test Pos 09/17/23 07:54 A-a Gradient 103.0 mmHg 09/17/23 07:54 FiO2 28.0 09/17/23 07:54 Blood Gas Comments Pt negro well. kg/eb 09/17/23 07:54 Sodium 140 mmol/L (136-145) 09/28/23 05:50 Corrected Sodium 141 mmol/L (136-145) 09/28/23 05:50 Potassium 4.5 mmol/L (3.5-5.1) 09/28/23 05:50 Chloride 105 mmol/L (98-107) 09/28/23 05:50 Carbon Dioxide 32.1 mmol/L (21-32) H 09/28/23 05:50 BUN 16 mg/dL (7-18) 09/28/23 05:50 Creatinine 0.65 mg/dL (0.55-1.02) 09/28/23 05:50 Est GFR (MDRD) Af Amer > 60 (>60) 09/28/23 05:50 Est GFR (MDRD) Non-Af > 60 (>60) 09/28/23 05:50 Glucose 136 mg/dL (65-99) H 09/28/23 05:50 POC Glucose (mg/dL) 130 mg/dL (65-99) H 09/27/23 05:34 Lactic Acid 1.9 mmol/L (0.4-2.0) 09/19/23 07:15 Calcium 7.8 mg/dL (8.5-10.1) L 09/28/23 05:50 Corrected Calcium 9.1 mg/dL (8.5-10.1) 09/28/23 05:50 Magnesium 2.1 mg/dL (2.0-2.9) 09/23/23 05:11 Total Bilirubin 0.30 mg/dL (0.2-1.0) 09/28/23 05:50 AST 11 Units/L (15-37) L 09/28/23 05:50 ALT 30 Units/L (12-78) 09/28/23 05:50 Alkaline Phosphatase 80 Units/L (46-116) 09/28/23 05:50 Creatine Kinase 29 Units/L (26-192) 09/17/23 07:55 Troponin I High Sens 7.0 ng/L (4.0-60.0) 09/17/23 07:55 B-Natriuretic Peptide 10.1 pg/mL (0-79) 09/17/23 07:55 Total Protein 5.0 g/dL (6.4-8.2) L 09/28/23 05:50 Albumin 2.4 g/dL (3.4-5.0) L 09/28/23 05:50 Globulin 2.6 g/dL (2.5-4.5) 09/28/23 05:50 Albumin/Globulin Ratio 0.9 Ratio (1.1-2.1) L 09/28/23 05:50 Free T4 1.05 ng/dL (0.76-1.46) 09/20/23 06:05 Free T3 pg/dL 2.0 pg/mL (2.5-4.3) L 09/20/23 06:05 TSH 3rd Generation 0.057 uIU/mL (0.358-3.74) L 09/20/23 06:05 Specimen Type Random urine 09/17/23 08:20 Urine Color Yellow (YELLOW) 09/17/23 08:20 Urine Appearance Clear (CLEAR) 09/17/23 08:20 Urine pH 5.0 (5.0 - 8.0) 09/17/23 08:20 Ur Specific [place] 1.015 (1.000-1.030) 09/17/23 08:20 Urine Protein 2+ (NEGATIVE) 09/17/23 08:20 Urine Glucose (UA) Negative (NEGATIVE) 09/17/23 08:20 Urine Ketones Negative (NEGATIVE) 09/17/23 08:20 Urine Blood Negative (NEGATIVE) 09/17/23 08:20 Urine Nitrite Negative (NEGATIVE) 09/17/23 08:20 Urine Bilirubin Negative (NEGATIVE) 09/17/23 08:20 Urine Urobilinogen Normal (NORMAL) 09/17/23 08:20 Ur Leukocyte Esterase Negative (NEGATIVE) 09/17/23 08:20 Urine RBC None seen /HPF (0-3) 09/17/23 08:20 Urine WBC 0-2 /HPF (0-5) 09/17/23 08:20 Ur Squamous Epith Cells Moderate /HPF (NEGATIVE) 09/17/23 08:20 Urine Bacteria Negative /HPF (NEGATIVE) 09/17/23 08:20 Ur Culture Indicated? No/not indicated 09/17/23 08:20 SARS-CoV-2 (PCR) Negative (NEGATIVE) 09/17/23 08:12 Influenza Type A (PCR) Negative (NEGATIVE) 09/17/23 08:12 Influenza Type B (PCR) Negative (NEGATIVE) 09/17/23 08:12 RSV (PCR) Negative (NEGATIVE) 09/17/23 08:12 Resp Viral Panel (PCR) See scanned report 09/17/23 16:26 Plan (1) Pneumonia: Status: Acute Qualifiers: Laterality: left Plan: Follow-up AIT sputum cultures and regular sputum cultures. Discontinue IV Zosyn and start Invanz 1 g IV daily. Today will be day 1 for IV Invanz. (2) Hypoxia: Status: Acute Plan: Supple O2 via nasal cannula and respiratory consultation. Treat left lobe pneumonia and COPD exacerbation. (3) Respiratory insufficiency: Status: Acute Plan: Continue Trelegy Ellipta, montelukast 10 mg daily (4) Hypomagnesemia: Status: Acute Plan: Start magnesium oxide 400 mg p.o. twice daily. (5) COPD exacerbation: Status: Acute Plan: The patient received Solu-Medrol 125 mg IV x 1 in the emergency department and then was started on 40 mg IV twice daily. I will go ahead and increase her to 60 mg IV twice daily to see if we can get her hypoxia improved sooner. (6) Elevated lactic acid level: Status: Acute Plan: Repeat lactic acid per sepsis protocol. (7) Thrombocytopenia: Status: Acute Plan: Follow daily platelet level. GI protection with Protonix 40 mg IV twice daily. (8) Atrial fibrillation: Status: Chronic Qualifiers: Atrial fibrillation type: unspecified Qualified Code(s): I48.91 - Unspecified atrial fibrillation Plan: Continue carvedilol 25 mg p.o. twice daily and Eliquis 5 mg p.o. twice daily. (9) History of CVA with residual deficit: Status: Acute (10) Chronic low back pain: Status: Acute Plan: The patient may resume her [place]. (11) Primary hypertension: Status: Acute Plan: Add losartan 50 mg 1 p.o. daily. Recheck blood pressure tomorrow morning.
[2023-09-29 06:27] LABS: BASOPHILS % (AUTO) 0.1 % (0.2-1.0); HEMOGLOBIN 12.7 g/dL (12.0-16.0); LYMPHOCYTES % (AUTO) 4.2 % (21.0-51.0); MEAN CORPUSCULAR HEMOGLOBIN 26.6 pg (27.0-34.0); MEAN CORPUSCULAR HGB CONC 31.8 g/dL (33.0-35.0); MEAN CORPUSCULAR VOLUME 83.8 fL (80.0-100.0); MEAN PLATELET VOLUME 8.9 fL (7.4-11.0); MONOCYTES # (AUTO) 1.4 x10^3/uL (0.3-0.8); MONOCYTES % (AUTO) 5.8 % (0.0-13.0); NEUTROPHILS # (AUTO) 21.9 x10^3/uL (2.2-4.8); NEUTROPHILS % (AUTO) 89.9 % (42.0-75.0); PLATELET COUNT 236 X10^3/uL (150.0-450.0); RED BLOOD COUNT 4.77 X10^6/uL (3.5-5.4); RED CELL DISTRIBUTION WIDTH 23.2 % (11.6-16.5); WHITE BLOOD COUNT 24.4 X10^3/uL (3.6-10.0)
[2023-09-29 06:49] LABS: ANISOCYTOSIS 2+; BAND NEUTROPHILS % 3 % (0-10); PLATELET MORPHOLOGY COMMENT NORMAL (NORMAL)
[2023-09-29 06:50] LABS: ALANINE AMINOTRANSFERASE 44 Units/L (12-78); ALBUMIN 2.7 g/dL (3.4-5.0); ALKALINE PHOSPHATASE 79 Units/L (46-116); ASPARTATE AMINO TRANSFERASE 20 Units/L (15-37); BLOOD UREA NITROGEN 14 mg/dL (7-18); CALCIUM 8.3 mg/dL (8.5-10.1); CARBON DIOXIDE 33.6 mmol/L (21-32); CHLORIDE 102 mmol/L (98-107); COR CA(FOR HYPOALB) 9.3 mg/dL (8.5-10.1); COR NA(FOR HYPERGLY) 141 mmol/L (136-145); GLUCOSE 119 mg/dL (65-99); POTASSIUM 4.6 mmol/L (3.5-5.1); SODIUM 141 mmol/L (136-145); TOTAL PROTEIN 5.6 g/dL (6.4-8.2); eGFR NON BLACK RACES > 60 (>60)
[2023-09-29] MEDS ORDERED: PHARMACY CONSULT - TOBRAMYCIN XX SCH (09:00)
[2023-09-29] MEDS ORDERED: MEDROL DOSEPAK 4 MG PER TAB PO NR (09:00)
[2023-09-29] MEDS: MEDROL DOSEPAK 4 MG PER TAB PO SCH ×2 (09:04→10:35)
[2023-09-29] MEDS: COZAAR PO SCH (09:22)
--- NOTE | 2023-09-29 09:35 | RAD ---
EXAMINATION:CHEST, 1 VIEWHISTORY:PNEUMONIA ; .COMPARISON STUDY:09/28/2023TECHNIQUE:A single view of the chest was obtained.FINDINGS:Cardiomegaly is present. Left basilar infiltrate is decreased. Hyperinflated lungs. No pneumothorax, new infiltrate or other change noted. Previous ACDF.IMPRESSION:Decrease in left basilar infiltrate. Follow-up recommended.No new infiltratesTHIS IS AN ELECTRONICALLY VERIFIED FINAL REPORT09/29/2023 9:32 AM - Electronically signed by Radu Stone MD
--- NOTE | 2023-09-29 10:01 | CT ---
EXAM:CHEST WITH CONTRASTHISTORY:PNEUMONIA;COMPARISON:[facility] CT 08/22/2023TECHNIQUE:Multiple CT axial images of the chest were obtained with IV contrast. Coronal and sagittal images were reconstructed. Dose reduction techniques included Automated Exposure Control (AEC) and adjustment of mA and kV.FINDINGS:Heart size at the upper limits of normal. Atherosclerotic calcification is present in the coronary arteries. The pulmonary artery and aorta have a normal caliber. No mediastinal mass or significant lymphadenopathy.Right thyroid nodule measures 20 mm, probably not changed from the prior study. Probably also stable since chest CT dated 06/09/2019. No axillary mass or significant axillary lymphadenopathy is identified.There are areas of interstitial opacity in the lungs. In general these have resolved since the study from July 2023. There may be a few residual linear areas representing postinflammatory focal fibrosis. This is most pronounced in the posterolateral left lower lobe. No residual area of consolidation however.Right apical lung nodule measures 10 mm image 27 series 7. This may be larger than on baseline studies dating from 2019 but has invariably been hidden on subsequent exams due to the presence of pneumonia or pulmonary edema on those studies. You may consider PET-CT for further evaluation of this nodule.Trace left pleural effusion is smaller than on the prior study. The right effusion has resolved.Moderate size hiatal hernia. Otherwise no significant abnormality in the upper abdomenDegenerative changes are present in the spine. Cervical fixation hardware is noted.IMPRESSION:1. Resolved pneumonia with postinflammatory focal fibrosis2. Probably larger right apical lung nodule; consider PET-CT for further evaluation3. Smaller effusions4. Moderate hiatal herniaTHIS IS AN ELECTRONICALLY VERIFIED FINAL REPORT09/29/2023 9:57 AM - Electronically signed by Cedrick Shah MD
[2023-09-29] MEDS: OMNIPAQUE 350 mg/mL 100 mL BTL 100 ML ONE (11:14)
[2023-09-29] MEDS: TOBRAMYCIN SULFATE 320 MG in NS 100 ML IV 100 ML IV SCH (12:17)
--- NOTE | 2023-09-29 13:21 | PCM.PROG ---
Progress Note Progress Note for Day of Date of Exam: 09/29/23 Subjective Subjective: The patient is alert and awake at this time. She states that she is feeling about the same as she has the last couple of days. She does not feel the best in the world but she feels better than she did prior to coming in. Her white blood cell count has gone up again to 24,400 this morning. However, her chest x-ray today shows an improvement in the decreasing size of the left lower lobe infiltrate. I did a CT scan with IV contrast of the patient's lungs today, and it shows that the pneumonia has resolved, and all that is left is postinflammatory changes consistent with some focal fibrosis. They did find a right apical lung nodule that is 10 mm in diameter. This was not seen on the previous CT scan of her lungs in 2019. At that time, it was invariably hidden by the presence of pneumonia or pulmonary edema on those studies. The radiologist has recommended a possible PETCT scan to evaluate this nodule further. I have discussed this with the patient and told her that we can get her set up with a PET CT scan as an outpatient to further investigate this pulmonary nodule. The patient's AFB sputum and sputum culture not back yet. The Gram stain has been done on the sputum yesterday and show some gram-negative rods and gram- positive cocci but they were few. The patient has been afebrile for the last few days as well. I am unsure why her white blood cell count went up the way it did. She is on Solu-Medrol but has been on this since going to the hospital. We did start her on a Medrol Dosepak this morning after the blood was drawn and discontinued her IV Solu-Medrol. The patient can be discharged home once her white blood cell count has normalized or nearly normalized and she continues to improve for her left lower lobe pneumonia. Past Medical Family Social History Allergies: Allergies sulfacetamide Allergy (Unknown, Verified 09/17/23 07:40) Reason: Drug allergy Sulfa (Sulfonamide Antibiotics) [SULFA] Allergy (Verified 09/17/23 07:40) Review of Systems ROS: No change since H&P Vital Signs and I&O's Vital Signs: Vital Signs Temperature 97.9 F Temperature 97.8 F Pulse Rate [Left Brachial] 67 Pulse Rate [Left Brachial] 68 Pulse Rate 71 Respiratory Rate 18 Respiratory Rate 17 Blood Pressure [Right Arm] 138/63 Blood Pressure [Right Arm] 179/78 O2 Sat by Pulse Oximetry 95 O2 Sat by Pulse Oximetry 97 O2 Sat by Pulse Oximetry 94 Intake and Output: Intake & Output 09/27/23 09/28/23 09/29/23 09/30/23 11:59 11:59 11:59 11:59 Intake Total 2588 / 2588 3619 / 3619 3376 / 3376 Balance 2588 / 2588 3619 / 3619 3376 / 3376 Physical Exam Oriented: Normal, Time, Person and Place Eyes: Normal Ear: Normal Nose: Normal Throat: Normal Respiratory: Left (Left lower lobe), Inferior, Diminished and Rhonchi; negative Normal, Wheezes or Rales Cardiovascular: Normal Auscultation: Bowel Sounds: Normal Tenderness: Normal Skin: Normal Musculoskeletal: Normal Psychiatric: Normal Mood Description: Calm Affect: Normal Speech Pattern: Clear and Appropriate Laboratory and Diagnostics 09/29/23 05:44 09/29/23 05:44 Labs: 09/28/23 13:40 Sputum - Expectorated Sputum Sputum Culture - Preliminary 09/28/23 13:40 Sputum - Expectorated Sputum - Final 09/17/23 07:55 Blood Blood Culture - Final 09/17/23 08:04 Blood Blood Culture - Final 09/19/23 10:15 Sputum - Expectorated Sputum Sputum Culture - Final Escherichia Coli Esbl 09/19/23 10:15 Sputum - Expectorated Sputum - Final Laboratory WBC 24.4 X10^3/uL (3.6-10.0) H 09/29/23 05:44 RBC 4.77 X10^6/uL (3.5-5.4) 09/29/23 05:44 Hgb 12.7 g/dL (12.0-16.0) 09/29/23 05:44 Hct 40.0 % (36.0-47.0) 09/29/23 05:44 MCV 83.8 fL (80.0-100.0) 09/29/23 05:44 MCH 26.6 pg (27.0-34.0) L 09/29/23 05:44 MCHC 31.8 g/dL (33.0-35.0) L 09/29/23 05:44 RDW 23.2 % (11.6-16.5) H 09/29/23 05:44 Plt Count 236 X10^3/uL (150.0-450.0) 09/29/23 05:44 Plt Count Comment Adequate (ADEQUATE) 09/29/23 05:44 MPV 8.9 fL (7.4-11.0) 09/29/23 05:44 Neut % (Auto) 89.9 % (42.0-75.0) H 09/29/23 05:44 Lymph % (Auto) 4.2 % (21.0-51.0) L 09/29/23 05:44 [place] % (Auto) 5.8 % (0.0-13.0) 09/29/23 05:44 Eos % (Auto) 0.0 % (0.9-2.9) L 09/29/23 05:44 Baso % (Auto) 0.1 % (0.2-1.0) L 09/29/23 05:44 Neut # (Auto) 21.9 x10^3/uL (2.2-4.8) H 09/29/23 05:44 Lymph # (Auto) 1.0 X10^3/uL (1.3-2.9) L 09/29/23 05:44 [place] # (Auto) 1.4 x10^3/uL (0.3-0.8) H 09/29/23 05:44 Eos # (Auto) 0.0 x10^3/uL (0.0-0.2) 09/29/23 05:44 Baso # (Auto) 0.0 X10^3/uL (0.0-0.1) 09/29/23 05:44 Absolute Nucleated RBC 0.1 /100WBC 09/29/23 05:44 Total Counted 100 09/29/23 05:44 Neutrophils % (Manual) 83 % (39-76) H 09/29/23 05:44 Band Neutrophils % 3 % (0-10) 09/29/23 05:44 Lymphocytes % (Manual) 6 % (13-43) L 09/29/23 05:44 Monocytes % (Manual) 8 % (4-9) 09/29/23 05:44 Eosinophils % (Manual) 0 % (0-6) 09/22/23 05:20 Basophils % (Manual) 0 % (0-1) 09/22/23 05:20 Metamyelocytes % 1 09/24/23 04:10 Plt Morphology Comment Normal (NORMAL) 09/29/23 05:44 RBC Morphology Abnormal (NORMAL) A 09/29/23 05:44 Hypochromasia Slight A 09/21/23 06:05 Anisocytosis 2+ A 09/29/23 05:44 Ovalocytes Slight A 09/26/23 05:20 Schistocytes Slight A 09/26/23 05:20 PT 13.8 SECONDS (11.8-14.3) 09/17/23 07:55 INR Target Range - 09/17/23 07:55 INR 1.08 (0.8-1.3) 09/17/23 07:55 APTT 25.2 SECONDS (22.9-36.5) 09/17/23 07:55 PTT Comment - 09/17/23 07:55 Sample Site Lrad 09/17/23 07:54 ABG pH 7.430 (7.35-7.45) 09/17/23 07:54 ABG pCO2 38.0 mmHg (35.0-45.0) 09/17/23 07:54 ABG pO2 49.0 mmHg (80.0-100.0) L* 09/17/23 07:54 ABG HCO3 25.2 mmol/L (22-26) 09/17/23 07:54 ABG O2 Saturation 85.0 % (90-100) L 09/17/23 07:54 ABG Base Excess 1.0 mmol/L (-2.0-2.0) 09/17/23 07:54 Reagan Test Pos 09/17/23 07:54 A-a Gradient 103.0 mmHg 09/17/23 07:54 FiO2 28.0 09/17/23 07:54 Blood Gas Comments Pt negro well. kg/eb 09/17/23 07:54 Sodium 141 mmol/L (136-145) 09/29/23 05:44 Corrected Sodium 141 mmol/L (136-145) 09/29/23 05:44 Potassium 4.6 mmol/L (3.5-5.1) 09/29/23 05:44 Chloride 102 mmol/L (98-107) 09/29/23 05:44 Carbon Dioxide 33.6 mmol/L (21-32) H 09/29/23 05:44 BUN 14 mg/dL (7-18) 09/29/23 05:44 Creatinine 0.80 mg/dL (0.55-1.02) 09/29/23 05:44 Est GFR (MDRD) Af Amer > 60 (>60) 09/29/23 05:44 Est GFR (MDRD) Non-Af > 60 (>60) 09/29/23 05:44 Glucose 119 mg/dL (65-99) H 09/29/23 05:44 POC Glucose (mg/dL) 130 mg/dL (65-99) H 09/27/23 05:34 Lactic Acid 1.9 mmol/L (0.4-2.0) 09/19/23 07:15 Calcium 8.3 mg/dL (8.5-10.1) L 09/29/23 05:44 Corrected Calcium 9.3 mg/dL (8.5-10.1) 09/29/23 05:44 Magnesium 2.1 mg/dL (2.0-2.9) 09/23/23 05:11 Total Bilirubin 0.40 mg/dL (0.2-1.0) 09/29/23 05:44 AST 20 Units/L (15-37) 09/29/23 05:44 ALT 44 Units/L (12-78) 09/29/23 05:44 Alkaline Phosphatase 79 Units/L (46-116) 09/29/23 05:44 Creatine Kinase 29 Units/L (26-192) 09/17/23 07:55 Troponin I High Sens 7.0 ng/L (4.0-60.0) 09/17/23 07:55 B-Natriuretic Peptide 10.1 pg/mL (0-79) 09/17/23 07:55 Total Protein 5.6 g/dL (6.4-8.2) L 09/29/23 05:44 Albumin 2.7 g/dL (3.4-5.0) L 09/29/23 05:44 Globulin 2.9 g/dL (2.5-4.5) 09/29/23 05:44 Albumin/Globulin Ratio 0.9 Ratio (1.1-2.1) L 09/29/23 05:44 Free T4 1.05 ng/dL (0.76-1.46) 09/20/23 06:05 Free T3 pg/dL 2.0 pg/mL (2.5-4.3) L 09/20/23 06:05 TSH 3rd Generation 0.057 uIU/mL (0.358-3.74) L 09/20/23 06:05 Specimen Type Random urine 09/17/23 08:20 Urine Color Yellow (YELLOW) 09/17/23 08:20 Urine Appearance Clear (CLEAR) 09/17/23 08:20 Urine pH 5.0 (5.0 - 8.0) 09/17/23 08:20 Ur Specific [place] 1.015 (1.000-1.030) 09/17/23 08:20 Urine Protein 2+ (NEGATIVE) 09/17/23 08:20 Urine Glucose (UA) Negative (NEGATIVE) 09/17/23 08:20 Urine Ketones Negative (NEGATIVE) 09/17/23 08:20 Urine Blood Negative (NEGATIVE) 09/17/23 08:20 Urine Nitrite Negative (NEGATIVE) 09/17/23 08:20 Urine Bilirubin Negative (NEGATIVE) 09/17/23 08:20 Urine Urobilinogen Normal (NORMAL) 09/17/23 08:20 Ur Leukocyte Esterase Negative (NEGATIVE) 09/17/23 08:20 Urine RBC None seen /HPF (0-3) 09/17/23 08:20 Urine WBC 0-2 /HPF (0-5) 09/17/23 08:20 Ur Squamous Epith Cells Moderate /HPF (NEGATIVE) 09/17/23 08:20 Urine Bacteria Negative /HPF (NEGATIVE) 09/17/23 08:20 Ur Culture Indicated? No/not indicated 09/17/23 08:20 SARS-CoV-2 (PCR) Negative (NEGATIVE) 09/17/23 08:12 Influenza Type A (PCR) Negative (NEGATIVE) 09/17/23 08:12 Influenza Type B (PCR) Negative (NEGATIVE) 09/17/23 08:12 RSV (PCR) Negative (NEGATIVE) 09/17/23 08:12 Resp Viral Panel (PCR) See scanned report 09/17/23 16:26 Radiology Reviewed: Yes Plan (1) Pneumonia: Status: Acute Qualifiers: Laterality: left Plan: Follow-up AIT and regular sputum cultures. This morning, the patient discontinued her Invanz. We are also stopping her IV doxycycline. She is currently receiving IV Zyvox, and I have added IV tobramycin this morning. We will repeat CBC chest x-ray in the morning and if they continue to improve the patient might be ready for discharge home. (2) Hypoxia: Status: Chronic Plan: Supple O2 via nasal cannula and respiratory consultation. Treat left lobe pneumonia and COPD exacerbation. (3) Respiratory insufficiency: Status: Chronic Plan: Continue Trelegy Ellipta, montelukast 10 mg daily (4) Hypomagnesemia: Status: Acute Plan: Start magnesium oxide 400 mg p.o. twice daily. (5) COPD exacerbation: Status: Acute Plan: The patient received Solu-Medrol 125 mg IV x 1 in the emergency department and then was started on 40 mg IV twice daily. I will go ahead and increase her to 60 mg IV twice daily to see if we can get her hypoxia improved sooner. (6) Elevated lactic acid level: Status: Acute Plan: Repeat lactic acid per sepsis protocol. (7) Thrombocytopenia: Status: Acute Plan: Follow daily platelet level. GI protection with Protonix 40 mg IV twice daily. (8) Atrial fibrillation: Status: Chronic Qualifiers: Atrial fibrillation type: unspecified Qualified Code(s): I48.91 - Unspecified atrial fibrillation Plan: Continue carvedilol 25 mg p.o. twice daily and Eliquis 5 mg p.o. twice daily. (9) History of CVA with residual deficit: Status: Acute (10) Chronic low back pain: Status: Acute Plan: The patient may resume her [place]. (11) Primary hypertension: Status: Acute Plan: Add losartan 50 mg 1 p.o. daily. Recheck blood pressure tomorrow morning. (12) Nodule of right lobe of thyroid gland: Status: Acute Plan: We see that the patient has a right thyroid nodule but it seems and appears to be unchanged from her last CT scan in May 2019. (13) Nodule of apex of right lung: Status: Acute Plan: We will get the patient set up with a PETCT scan as an outpatient in [place], [place]. This is a new finding that was not seen on her last CT scan of the lungs which was in May 2019. However, the last CT scan the patient had pneumonia and a pulmonary edema that was possibly obscuring the pulmonary nodule at that time.
[2023-09-29] MEDS: REGLAN INJ 10 MG VIAL IVP SCH (16:29)
[2023-09-30] MEDS: MEDROL DOSEPAK 4 MG PER TAB PO SCH ×2 (05:59→20:17)
[2023-09-30 06:38] LABS: HEMATOCRIT 37.7 % (36.0-47.0); HEMOGLOBIN 12.1 g/dL (12.0-16.0); PLATELET COUNT 194 X10^3/uL (150.0-450.0)
[2023-09-30 06:46] LABS: ALANINE AMINOTRANSFERASE 38 Units/L (12-78); ALBUMIN 2.5 g/dL (3.4-5.0); ALKALINE PHOSPHATASE 78 Units/L (46-116); ASPARTATE AMINO TRANSFERASE 13 Units/L (15-37); BASOPHILS % (AUTO) 0.2 % (0.2-1.0); BLOOD UREA NITROGEN 12 mg/dL (7-18); CALCIUM 7.9 mg/dL (8.5-10.1); CARBON DIOXIDE 38.3 mmol/L (21-32); CHLORIDE 105 mmol/L (98-107); COR CA(FOR HYPOALB) 9.1 mg/dL (8.5-10.1); CREATININE 0.67 mg/dL (0.55-1.02); GLUCOSE 105 mg/dL (65-99); LYMPHOCYTES # (AUTO) 0.9 X10^3/uL (1.3-2.9); LYMPHOCYTES % (AUTO) 5.3 % (21.0-51.0); MEAN CORPUSCULAR HEMOGLOBIN 27.2 pg (27.0-34.0); MEAN CORPUSCULAR HGB CONC 32.2 g/dL (33.0-35.0); MEAN CORPUSCULAR VOLUME 84.3 fL (80.0-100.0); MONOCYTES # (AUTO) 1.5 x10^3/uL (0.3-0.8); MONOCYTES % (AUTO) 8.5 % (0.0-13.0); NEUTROPHILS # (AUTO) 14.9 x10^3/uL (2.2-4.8); POTASSIUM 4.7 mmol/L (3.5-5.1); RED BLOOD COUNT 4.47 X10^6/uL (3.5-5.4); RED CELL DISTRIBUTION WIDTH 22.8 % (11.6-16.5); SODIUM 143 mmol/L (136-145); TOTAL PROTEIN 5.2 g/dL (6.4-8.2); WHITE BLOOD COUNT 17.3 X10^3/uL (3.6-10.0); eGFR NON BLACK RACES > 60 (>60)
[2023-09-30 07:20] LABS: ANISOCYTOSIS 2+; PLATELET MORPHOLOGY COMMENT NORMAL (NORMAL)
--- NOTE | 2023-09-30 12:02 | PCM.PROG ---
Progress Note Progress Note for Day of Date of Exam: 09/30/23 Subjective Subjective: Patient seen at bedside, no acute events overnight. She is feeling about the same today. She remains on 2 L nasal cannula. She is currently admitted for pneumonia due to ESBL infection. She is on tobramycin and linezolid. Her white count has decreased today to 17. She states she has been having some abdominal pain with worsening indigestion. She has chronic GI issues and currently sees specialist in [place]. She has had multiple surgeries and EGDs. She was supposed to be seen there last week but missed appointment due to this admission. She has been afebrile. Denies any vomiting or diarrhea. Labs and imaging reviewed: -WBC: 17 hemoglobin: 12.1 BUN/CR 12/0.67 -CT chest: Resolved pneumonia, postinflammatory changes noted. Right apical nodule, recommend further imaging with PET scan. -Sputum culture 09/28/23: ESBL E.coli Plan: Continue current antibiotics, wean O2 as tolerated. Continue nebs and Pulmicort. Replace electrolytes as per protocol. Will order CT abdomen pelvis to assess further. Patient's white count is trending down, would like to rule out any abdominal source. PT as tolerated. Monitor a.m. labs and imaging. Past Medical Family Social History Allergies: Allergies sulfacetamide Allergy (Unknown, Verified 09/17/23 07:40) Reason: Drug allergy Sulfa (Sulfonamide Antibiotics) [SULFA] Allergy (Verified 09/17/23 07:40) Review of Systems ROS: No change since H&P Vital Signs and I&O's Vital Signs: Vital Signs Temperature 97.0 F Temperature 98.1 F Pulse Rate [Left Brachial] 68 Pulse Rate [Left Brachial] 63 Pulse Rate 77 Respiratory Rate 18 Respiratory Rate 18 Blood Pressure [Right Arm] 137/70 Blood Pressure [Right Arm] 139/70 O2 Sat by Pulse Oximetry 95 O2 Sat by Pulse Oximetry 97 O2 Sat by Pulse Oximetry 97 Intake and Output: Intake & Output 09/27/23 09/28/23 09/29/23 09/30/23 23:59 23:59 23:59 23:59 Intake Total 3646 / 3646 2853 / 2853 4019 / 4019 798 / 798 Balance 3646 / 3646 2853 / 2853 4019 / 4019 798 / 798 Physical Exam Oriented: Normal, Time, Person and Place Eyes: Normal Ear: Normal Nose: Normal Throat: Normal Respiratory: Left (Left lower lobe), Inferior, Diminished and Rhonchi; negative Normal, Wheezes or Rales Cardiovascular: Normal Auscultation: Bowel Sounds: Normal Tenderness: Epigastric and Mild Skin: Normal Musculoskeletal: Normal Psychiatric: Normal Mood Description: Calm Affect: Normal Speech Pattern: Clear and Appropriate Laboratory and Diagnostics 09/30/23 05:30 09/30/23 05:30 Labs: 09/28/23 13:40 Sputum - Expectorated Sputum Sputum Culture - Final Escherichia Coli Esbl 09/28/23 13:40 Sputum - Expectorated Sputum - Final 09/17/23 07:55 Blood Blood Culture - Final 09/17/23 08:04 Blood Blood Culture - Final 09/19/23 10:15 Sputum - Expectorated Sputum Sputum Culture - Final Escherichia Coli Esbl 09/19/23 10:15 Sputum - Expectorated Sputum - Final Laboratory WBC 17.3 X10^3/uL (3.6-10.0) H 09/30/23 05:30 RBC 4.47 X10^6/uL (3.5-5.4) 09/30/23 05:30 Hgb 12.1 g/dL (12.0-16.0) 09/30/23 05:30 Hct 37.7 % (36.0-47.0) 09/30/23 05:30 MCV 84.3 fL (80.0-100.0) 09/30/23 05:30 MCH 27.2 pg (27.0-34.0) 09/30/23 05:30 MCHC 32.2 g/dL (33.0-35.0) L 09/30/23 05:30 RDW 22.8 % (11.6-16.5) H 09/30/23 05:30 Plt Count 194 X10^3/uL (150.0-450.0) 09/30/23 05:30 Plt Count Comment Adequate (ADEQUATE) 09/30/23 05:30 MPV 9.0 fL (7.4-11.0) 09/30/23 05:30 Neut % (Auto) 86.0 % (42.0-75.0) H 09/30/23 05:30 Lymph % (Auto) 5.3 % (21.0-51.0) L 09/30/23 05:30 [place] % (Auto) 8.5 % (0.0-13.0) 09/30/23 05:30 Eos % (Auto) 0.0 % (0.9-2.9) L 09/30/23 05:30 Baso % (Auto) 0.2 % (0.2-1.0) 09/30/23 05:30 Neut # (Auto) 14.9 x10^3/uL (2.2-4.8) H 09/30/23 05:30 Lymph # (Auto) 0.9 X10^3/uL (1.3-2.9) L 09/30/23 05:30 [place] # (Auto) 1.5 x10^3/uL (0.3-0.8) H 09/30/23 05:30 Eos # (Auto) 0.0 x10^3/uL (0.0-0.2) 09/30/23 05:30 Baso # (Auto) 0.0 X10^3/uL (0.0-0.1) 09/30/23 05:30 Absolute Nucleated RBC 0.0 /100WBC 09/30/23 05:30 Total Counted 100 09/30/23 05:30 Neutrophils % (Manual) 87 % (39-76) H 09/30/23 05:30 Band Neutrophils % 3 % (0-10) 09/29/23 05:44 Lymphocytes % (Manual) 8 % (13-43) L 09/30/23 05:30 Monocytes % (Manual) 5 % (4-9) 09/30/23 05:30 Eosinophils % (Manual) 0 % (0-6) 09/22/23 05:20 Basophils % (Manual) 0 % (0-1) 09/22/23 05:20 Metamyelocytes % 1 09/24/23 04:10 Plt Morphology Comment Normal (NORMAL) 09/30/23 05:30 RBC Morphology Abnormal (NORMAL) A 09/30/23 05:30 Hypochromasia Slight A 09/21/23 06:05 Anisocytosis 2+ A 09/30/23 05:30 Ovalocytes Slight A 09/26/23 05:20 Schistocytes Slight A 09/26/23 05:20 PT 13.8 SECONDS (11.8-14.3) 09/17/23 07:55 INR Target Range - 09/17/23 07:55 INR 1.08 (0.8-1.3) 09/17/23 07:55 APTT 25.2 SECONDS (22.9-36.5) 09/17/23 07:55 PTT Comment - 09/17/23 07:55 Sample Site [place]rad 09/17/23 07:54 ABG pH 7.430 (7.35-7.45) 09/17/23 07:54 ABG pCO2 38.0 mmHg (35.0-45.0) 09/17/23 07:54 ABG pO2 49.0 mmHg (80.0-100.0) L* 09/17/23 07:54 ABG HCO3 25.2 mmol/L (22-26) 09/17/23 07:54 ABG O2 Saturation 85.0 % (90-100) L 09/17/23 07:54 ABG Base Excess 1.0 mmol/L (-2.0-2.0) 09/17/23 07:54 Reagan Test Pos 09/17/23 07:54 A-a Gradient 103.0 mmHg 09/17/23 07:54 FiO2 28.0 09/17/23 07:54 Blood Gas Comments Pt negro well. kg/eb 09/17/23 07:54 Sodium 143 mmol/L (136-145) 09/30/23 05:30 Corrected Sodium TNP 09/30/23 05:30 Potassium 4.7 mmol/L (3.5-5.1) 09/30/23 05:30 Chloride 105 mmol/L (98-107) 09/30/23 05:30 Carbon Dioxide 38.3 mmol/L (21-32) H 09/30/23 05:30 BUN 12 mg/dL (7-18) 09/30/23 05:30 Creatinine 0.67 mg/dL (0.55-1.02) 09/30/23 05:30 Est GFR (MDRD) Af Amer > 60 (>60) 09/30/23 05:30 Est GFR (MDRD) Non-Af > 60 (>60) 09/30/23 05:30 Glucose 105 mg/dL (65-99) H 09/30/23 05:30 POC Glucose (mg/dL) 130 mg/dL (65-99) H 09/27/23 05:34 Lactic Acid 1.9 mmol/L (0.4-2.0) 09/19/23 07:15 Calcium 7.9 mg/dL (8.5-10.1) L 09/30/23 05:30 Corrected Calcium 9.1 mg/dL (8.5-10.1) 09/30/23 05:30 Magnesium 2.1 mg/dL (2.0-2.9) 09/30/23 05:30 Total Bilirubin 0.40 mg/dL (0.2-1.0) 09/30/23 05:30 AST 13 Units/L (15-37) L 09/30/23 05:30 ALT 38 Units/L (12-78) 09/30/23 05:30 Alkaline Phosphatase 78 Units/L (46-116) 09/30/23 05:30 Creatine Kinase 29 Units/L (26-192) 09/17/23 07:55 Troponin I High Sens 7.0 ng/L (4.0-60.0) 09/17/23 07:55 B-Natriuretic Peptide 10.1 pg/mL (0-79) 09/17/23 07:55 Total Protein 5.2 g/dL (6.4-8.2) L 09/30/23 05:30 Albumin 2.5 g/dL (3.4-5.0) L 09/30/23 05:30 Globulin 2.7 g/dL (2.5-4.5) 09/30/23 05:30 Albumin/Globulin Ratio 0.9 Ratio (1.1-2.1) L 09/30/23 05:30 Free T4 1.05 ng/dL (0.76-1.46) 09/20/23 06:05 Free T3 pg/dL 2.0 pg/mL (2.5-4.3) L 09/20/23 06:05 TSH 3rd Generation 0.057 uIU/mL (0.358-3.74) L 09/20/23 06:05 Specimen Type Random urine 09/17/23 08:20 Urine Color Yellow (YELLOW) 09/17/23 08:20 Urine Appearance Clear (CLEAR) 09/17/23 08:20 Urine pH 5.0 (5.0 - 8.0) 09/17/23 08:20 Ur Specific [place] 1.015 (1.000-1.030) 09/17/23 08:20 Urine Protein 2+ (NEGATIVE) 09/17/23 08:20 Urine Glucose (UA) Negative (NEGATIVE) 09/17/23 08:20 Urine Ketones Negative (NEGATIVE) 09/17/23 08:20 Urine Blood Negative (NEGATIVE) 09/17/23 08:20 Urine Nitrite Negative (NEGATIVE) 09/17/23 08:20 Urine Bilirubin Negative (NEGATIVE) 09/17/23 08:20 Urine Urobilinogen Normal (NORMAL) 09/17/23 08:20 Ur Leukocyte Esterase Negative (NEGATIVE) 09/17/23 08:20 Urine RBC None seen /HPF (0-3) 09/17/23 08:20 Urine WBC 0-2 /HPF (0-5) 09/17/23 08:20 Ur Squamous Epith Cells Moderate /HPF (NEGATIVE) 09/17/23 08:20 Urine Bacteria Negative /HPF (NEGATIVE) 09/17/23 08:20 Ur Culture Indicated? No/not indicated 09/17/23 08:20 SARS-CoV-2 (PCR) Negative (NEGATIVE) 09/17/23 08:12 Influenza Type A (PCR) Negative (NEGATIVE) 09/17/23 08:12 Influenza Type B (PCR) Negative (NEGATIVE) 09/17/23 08:12 RSV (PCR) Negative (NEGATIVE) 09/17/23 08:12 Resp Viral Panel (PCR) See scanned report 09/28/23 05:44 Plan (1) Pneumonia: Status: Acute Qualifiers: Laterality: left Pneumonia type: due to Escherichia coli Lung location: unspecified part of lung Qualified Code(s): J15.5 - Pneumonia due to Escherichia coli (2) Abdominal pain: Status: Acute Qualifiers: Abdominal location: epigastric Qualified Code(s): R10.13 - Epigastric pain (3) Hypomagnesemia: Status: Acute (4) COPD exacerbation: Status: Acute (5) Gastroparesis: Status: None (6) Thrombocytopenia: Status: Acute (7) Atrial fibrillation: Status: Chronic Qualifiers: Atrial fibrillation type: unspecified Qualified Code(s): I48.91 - Unspecified atrial fibrillation Plan: Continue carvedilol 25 mg p.o. twice daily and Eliquis 5 mg p.o. twice daily. (8) History of CVA with residual deficit: Status: Acute (9) Chronic low back pain: Status: Acute Qualifiers: Back pain laterality: unspecified Sciatica presence: unspecified whether sciatica present Qualified Code(s): M54.50 - Low back pain, unspecified; G89.29 - Other chronic pain Plan: The patient may resume her [place]. (10) Primary hypertension: Status: Acute Plan: Add losartan 50 mg 1 p.o. daily. Recheck blood pressure tomorrow morning. (11) Nodule of apex of right lung: Status: Acute Plan: We will get the patient set up with a PETCT scan as an outpatient in [place], [place]. This is a new finding that was not seen on her last CT scan of the lungs which was in May 2019. However, the last CT scan the p atient had pneumonia and a pulmonary edema that was possibly obscuring the pulmonary nodule at that time.
[2023-09-30] MEDS ORDERED: READI-CAT 2 ONE (13:52)
[2023-09-30] MEDS ORDERED: OMNIPAQUE 350 mg/mL 100 mL BTL 100 ML ONE (16:14)
--- NOTE | 2023-09-30 23:06 | CT ---
EXAM:ABDCMEN/PELVIS WITH CONHISTORY:worsening abdominal pain, nausea; hernia repair hysterectomyCOMPARISON:None.TECHNIQUE:Fo llowing the intravenous administration of iodinated contrast, spiral CT imaging was performed through the abdomen and pelvis and axial, coronal, and sagittal CT images were generated.FINDINGS:Mild basilar emphysema and basilar atelectasis. There is no effusion. Heart size is normal. Liver is normal. Gallbladder is normal. Pancreas, spleen, adrenal glands are normal. Kidneys are normal in size and enhancement without stone or mass in either kidney. There is prominence of the right ureter. There are 2 stones in the area of the mid ureter which I suspect are actually phleboliths in an adjacent vessel although these could possibly be in the ureter. A comparison is not available. There is a moderate hiatal hernia. Small bowel loops are normal. There is no evidence for appendicitis. There is diverticulosis of the distal colon but no diverticulitis. Urinary bladder is normal. There is severe systemic atherosclerosis. There is no worrisome bone marrow lesion.IMPRESSION:1. Mild basilar emphysema and atelectasis.2. Moderate hiatal hernia.3. Diverticulosis of the sigmoid colon but no diverticulitis.4. There are stones adjacent to the right ureter which are probably phleboliths.THIS IS AN ELECTRONICALLY VERIFIED FINAL REPORT09/30/2023 11:03 PM - Electronically signed by Louis Meadows MD
[2023-10-01] MEDS: MEDROL DOSEPAK 4 MG PER TAB PO SCH (05:59)
[2023-10-01 06:45] LABS: BASOPHILS % (AUTO) 0.1 % (0.2-1.0); EOSINOPHILS % (AUTO) 0.1 % (0.9-2.9); HEMATOCRIT 38.7 % (36.0-47.0); HEMOGLOBIN 12.3 g/dL (12.0-16.0); LYMPHOCYTES # (AUTO) 0.8 X10^3/uL (1.3-2.9); LYMPHOCYTES % (AUTO) 5.1 % (21.0-51.0); MEAN CORPUSCULAR HEMOGLOBIN 27.2 pg (27.0-34.0); MEAN CORPUSCULAR HGB CONC 31.8 g/dL (33.0-35.0); MEAN CORPUSCULAR VOLUME 85.3 fL (80.0-100.0); MEAN PLATELET VOLUME 9.2 fL (7.4-11.0); MONOCYTES # (AUTO) 1.5 x10^3/uL (0.3-0.8); MONOCYTES % (AUTO) 9.3 % (0.0-13.0); NEUTROPHILS % (AUTO) 85.4 % (42.0-75.0); PLATELET COUNT 189 X10^3/uL (150.0-450.0); RED BLOOD COUNT 4.54 X10^6/uL (3.5-5.4); RED CELL DISTRIBUTION WIDTH 23.7 % (11.6-16.5); WHITE BLOOD COUNT 16.4 X10^3/uL (3.6-10.0)
[2023-10-01 06:54] LABS: ALANINE AMINOTRANSFERASE 39 Units/L (12-78); ALBUMIN 2.5 g/dL (3.4-5.0); ALKALINE PHOSPHATASE 82 Units/L (46-116); ASPARTATE AMINO TRANSFERASE 11 Units/L (15-37); BLOOD UREA NITROGEN 10 mg/dL (7-18); CALCIUM 7.8 mg/dL (8.5-10.1); CARBON DIOXIDE 35.4 mmol/L (21-32); CHLORIDE 104 mmol/L (98-107); COR NA(FOR HYPERGLY) 142 mmol/L (136-145); CREATININE 0.65 mg/dL (0.55-1.02); GLUCOSE 113 mg/dL (65-99); MAGNESIUM 2.2 mg/dL (2.0-2.9); POTASSIUM 4.7 mmol/L (3.5-5.1); SODIUM 142 mmol/L (136-145); TOTAL PROTEIN 5.4 g/dL (6.4-8.2); eGFR NON BLACK RACES > 60 (>60)
[2023-10-01 07:16] LABS: PLATELET MORPHOLOGY COMMENT NORMAL (NORMAL)
[2023-10-01 07:17] LABS: ANISOCYTOSIS 2+
--- NOTE | 2023-10-01 11:31 | PCM.PROG ---
Progress Note Progress Note for Day of Date of Exam: 10/01/23 Subjective Subjective: Patient seen at bedside, no acute events overnight. She is feeling about the same today. She reports having some nausea and vomiting yesterday. She remains on 2 L nasal cannula. She is currently admitted for pneumonia due to ESBL infection. She is on tobramycin and linezolid. Labs and imaging reviewed: -WBC: 16 hemoglobin: 12.3 BUN/CR 10/0.65 -CT abdomen pelvis: Moderate hiatal hernia, diverticulosis and emphysema. -CT chest: Resolved pneumonia, postinflammatory changes noted. Right apical nodule, recommend further imaging with PET scan. -Sputum culture 09/28/23: ESBL E.coli -AIT 09/28/2023: Scanned report Plan: Continue current antibiotics, wean O2 as tolerated. Continue nebs and Pulmicort. Replace electrolytes as per protocol. Continue home medications. PT/OT as tolerated. Monitor a.m. labs and imaging. Past Medical Family Social History Allergies: Allergies sulfacetamide Allergy (Unknown, Verified 09/17/23 07:40) Reason: Drug allergy Sulfa (Sulfonamide Antibiotics) [SULFA] Allergy (Verified 09/17/23 07:40) Review of Systems ROS: No change since H&P Vital Signs and I&O's Vital Signs: Vital Signs Temperature 97.6 F Temperature 98.3 F Pulse Rate [Left Brachial] 73 Pulse Rate [Left Brachial] 67 Pulse Rate 69 Respiratory Rate 18 Respiratory Rate 20 Blood Pressure [Right Arm] 139/76 Blood Pressure [Left Arm] 119/59 O2 Sat by Pulse Oximetry 99 O2 Sat by Pulse Oximetry 97 O2 Sat by Pulse Oximetry 98 Intake and Output: Intake & Output 09/28/23 09/29/23 09/30/23 10/01/23 23:59 23:59 23:59 23:59 Intake Total 2853 / 2853 4019 / 4019 4405 / 4405 928 / 928 Balance 2853 / 2853 4019 / 4019 4405 / 4405 928 / 928 Physical Exam Oriented: Normal, Time, Person and Place Eyes: Normal Ear: Normal Nose: Normal Throat: Normal Respiratory: Left (Left lower lobe), Inferior, Diminished and Rhonchi; negative Normal, Wheezes or Rales Cardiovascular: Normal Auscultation: Bowel Sounds: Normal Palpation: Normal Tenderness: Epigastric and Mild Skin: Normal Musculoskeletal: Normal Psychiatric: Normal Mood Description: Calm Affect: Normal Speech Pattern: Clear and Appropriate Laboratory and Diagnostics 10/01/23 05:30 10/01/23 05:30 Labs: 09/28/23 13:40 Sputum - Expectorated Sputum Sputum Culture - Final Escherichia Coli Esbl 09/28/23 13:40 Sputum - Expectorated Sputum - Final 09/17/23 07:55 Blood Blood Culture - Final 09/17/23 08:04 Blood Blood Culture - Final 09/19/23 10:15 Sputum - Expectorated Sputum Sputum Culture - Final Escherichia Coli Esbl 09/19/23 10:15 Sputum - Expectorated Sputum - Final Laboratory WBC 16.4 X10^3/uL (3.6-10.0) H 10/01/23 05:30 RBC 4.54 X10^6/uL (3.5-5.4) 10/01/23 05:30 Hgb 12.3 g/dL (12.0-16.0) 10/01/23 05:30 Hct 38.7 % (36.0-47.0) 10/01/23 05:30 MCV 85.3 fL (80.0-100.0) 10/01/23 05:30 MCH 27.2 pg (27.0-34.0) 10/01/23 05:30 MCHC 31.8 g/dL (33.0-35.0) L 10/01/23 05:30 RDW 23.7 % (11.6-16.5) H 10/01/23 05:30 Plt Count 189 X10^3/uL (150.0-450.0) 10/01/23 05:30 Plt Count Comment Adequate (ADEQUATE) 10/01/23 05:30 MPV 9.2 fL (7.4-11.0) 10/01/23 05:30 Neut % (Auto) 85.4 % (42.0-75.0) H 10/01/23 05:30 Lymph % (Auto) 5.1 % (21.0-51.0) L 10/01/23 05:30 [place] % (Auto) 9.3 % (0.0-13.0) 10/01/23 05:30 Eos % (Auto) 0.1 % (0.9-2.9) L 10/01/23 05:30 Baso % (Auto) 0.1 % (0.2-1.0) L 10/01/23 05:30 Neut # (Auto) 14.0 x10^3/uL (2.2-4.8) H 10/01/23 05:30 Lymph # (Auto) 0.8 X10^3/uL (1.3-2.9) L 10/01/23 05:30 [place] # (Auto) 1.5 x10^3/uL (0.3-0.8) H 10/01/23 05:30 Eos # (Auto) 0.0 x10^3/uL (0.0-0.2) 10/01/23 05:30 Baso # (Auto) 0.0 X10^3/uL (0.0-0.1) 10/01/23 05:30 Absolute Nucleated RBC 0.1 /100WBC 10/01/23 05:30 Total Counted 100 10/01/23 05:30 Neutrophils % (Manual) 86 % (39-76) H 10/01/23 05:30 Band Neutrophils % 3 % (0-10) 09/29/23 05:44 Lymphocytes % (Manual) 8 % (13-43) L 10/01/23 05:30 Monocytes % (Manual) 6 % (4-9) 10/01/23 05:30 Eosinophils % (Manual) 0 % (0-6) 09/22/23 05:20 Basophils % (Manual) 0 % (0-1) 09/22/23 05:20 Metamyelocytes % 1 09/24/23 04:10 Plt Morphology Comment Normal (NORMAL) 10/01/23 05:30 RBC Morphology Abnormal (NORMAL) A 10/01/23 05:30 Hypochromasia Slight A 09/21/23 06:05 Anisocytosis 2+ A 10/01/23 05:30 Ovalocytes Slight A 09/26/23 05:20 Schistocytes Slight A 09/26/23 05:20 PT 13.8 SECONDS (11.8-14.3) 09/17/23 07:55 INR Target Range - 09/17/23 07:55 INR 1.08 (0.8-1.3) 09/17/23 07:55 APTT 25.2 SECONDS (22.9-36.5) 09/17/23 07:55 PTT Comment - 09/17/23 07:55 Sample Site [place]rad 09/17/23 07:54 ABG pH 7.430 (7.35-7.45) 09/17/23 07:54 ABG pCO2 38.0 mmHg (35.0-45.0) 09/17/23 07:54 ABG pO2 49.0 mmHg (80.0-100.0) L* 09/17/23 07:54 ABG HCO3 25.2 mmol/L (22-26) 09/17/23 07:54 ABG O2 Saturation 85.0 % (90-100) L 09/17/23 07:54 ABG Base Excess 1.0 mmol/L (-2.0-2.0) 09/17/23 07:54 Reagan Test Pos 09/17/23 07:54 A-a Gradient 103.0 mmHg 09/17/23 07:54 FiO2 28.0 09/17/23 07:54 Blood Gas Comments Pt negro well. kg/eb 09/17/23 07:54 Sodium 142 mmol/L (136-145) 10/01/23 05:30 Corrected Sodium 142 mmol/L (136-145) 10/01/23 05:30 Potassium 4.7 mmol/L (3.5-5.1) 10/01/23 05:30 Chloride 104 mmol/L (98-107) 10/01/23 05:30 Carbon Dioxide 35.4 mmol/L (21-32) H 10/01/23 05:30 BUN 10 mg/dL (7-18) 10/01/23 05:30 Creatinine 0.65 mg/dL (0.55-1.02) 10/01/23 05:30 Est GFR (MDRD) Af Amer > 60 (>60) 10/01/23 05:30 Est GFR (MDRD) Non-Af > 60 (>60) 10/01/23 05:30 Glucose 113 mg/dL (65-99) H 10/01/23 05:30 POC Glucose (mg/dL) 130 mg/dL (65-99) H 09/27/23 05:34 Lactic Acid 1.9 mmol/L (0.4-2.0) 09/19/23 07:15 Calcium 7.8 mg/dL (8.5-10.1) L 10/01/23 05:30 Corrected Calcium 9.0 mg/dL (8.5-10.1) 10/01/23 05:30 Magnesium 2.2 mg/dL (2.0-2.9) 10/01/23 05:30 Total Bilirubin 0.30 mg/dL (0.2-1.0) 10/01/23 05:30 AST 11 Units/L (15-37) L 10/01/23 05:30 ALT 39 Units/L (12-78) 10/01/23 05:30 Alkaline Phosphatase 82 Units/L (46-116) 10/01/23 05:30 Creatine Kinase 29 Units/L (26-192) 09/17/23 07:55 Troponin I High Sens 7.0 ng/L (4.0-60.0) 09/17/23 07:55 B-Natriuretic Peptide 10.1 pg/mL (0-79) 09/17/23 07:55 Total Protein 5.4 g/dL (6.4-8.2) L 10/01/23 05:30 Albumin 2.5 g/dL (3.4-5.0) L 10/01/23 05:30 Globulin 2.9 g/dL (2.5-4.5) 10/01/23 05:30 Albumin/Globulin Ratio 0.9 Ratio (1.1-2.1) L 10/01/23 05:30 Free T4 1.05 ng/dL (0.76-1.46) 09/20/23 06:05 Free T3 pg/dL 2.0 pg/mL (2.5-4.3) L 09/20/23 06:05 TSH 3rd Generation 0.057 uIU/mL (0.358-3.74) L 09/20/23 06:05 Specimen Type Random urine 09/17/23 08:20 Urine Color Yellow (YELLOW) 09/17/23 08:20 Urine Appearance Clear (CLEAR) 09/17/23 08:20 Urine pH 5.0 (5.0 - 8.0) 09/17/23 08:20 Ur Specific [place] 1.015 (1.000-1.030) 09/17/23 08:20 Urine Protein 2+ (NEGATIVE) 09/17/23 08:20 Urine Glucose (UA) Negative (NEGATIVE) 09/17/23 08:20 Urine Ketones Negative (NEGATIVE) 09/17/23 08:20 Urine Blood Negative (NEGATIVE) 09/17/23 08:20 Urine Nitrite Negative (NEGATIVE) 09/17/23 08:20 Urine Bilirubin Negative (NEGATIVE) 09/17/23 08:20 Urine Urobilinogen Normal (NORMAL) 09/17/23 08:20 Ur Leukocyte Esterase Negative (NEGATIVE) 09/17/23 08:20 Urine RBC None seen /HPF (0-3) 09/17/23 08:20 Urine WBC 0-2 /HPF (0-5) 09/17/23 08:20 Ur Squamous Epith Cells Moderate /HPF (NEGATIVE) 09/17/23 08:20 Urine Bacteria Negative /HPF (NEGATIVE) 09/17/23 08:20 Ur Culture Indicated? No/not indicated 09/17/23 08:20 SARS-CoV-2 (PCR) Negative (NEGATIVE) 09/17/23 08:12 Influenza Type A (PCR) Negative (NEGATIVE) 09/17/23 08:12 Influenza Type B (PCR) Negative (NEGATIVE) 09/17/23 08:12 RSV (PCR) Negative (NEGATIVE) 09/17/23 08:12 Resp Viral Panel (PCR) See scanned report 09/28/23 05:44 Plan (1) Pneumonia: Status: Acute Qualifiers: Laterality: left Lung location: unspecified part of lung Pneumonia type: due to Escherichia coli Qualified Code(s): J15.5 - Pneumonia due to Escherichia coli (2) Abdominal pain: Status: Acute Qualifiers: Abdominal location: epigastric Qualified Code(s): R10.13 - Epigastric pain (3) Hypomagnesemia: Status: Acute (4) COPD exacerbation: Status: Acute Plan: The patient received Solu-Medrol 125 mg IV x 1 in the emergency department and then was started on 40 mg IV twice daily. I will go ahead and increase her to 60 mg IV twice daily to see if we can get her hypoxia improved sooner. (5) Gastroparesis: Status: None (6) Thrombocytopenia: Status: Acute Plan: Follow daily platelet level. GI protection with Protonix 40 mg IV twice daily. (7) Atrial fibrillation: Status: Chronic Qualifiers: Atrial fibrillation type: unspecified Qualified Code(s): I48.91 - Unspecified atrial fibrillation Plan: Continue carvedilol 25 mg p.o. twice daily and Eliquis 5 mg p.o. twice daily. (8) History of CVA with residual deficit: Status: Acute (9) Chronic low back pain: Status: Acute Qualifiers: Back pain laterality: unspecified Sciatica presence: unspecified whether sciatica present Qualified Code(s): M54.50 - Low back pain, unspecified; G89.29 - Other chronic pain Plan: The patient may resume her [place]. (10) Primary hypertension: Status: Acute Plan: Add losartan 50 mg 1 p.o. daily. Recheck blood pressure tomorrow morning. (11) Nodule of apex of right lung: Status: Acute Plan: We will get the patient set up with a PETCT scan as an outpatient in [place], [place]. This is a new finding that was not seen on her last CT scan of the lungs which was in May 2019. However, the last CT scan the patient had pneumonia and a pulmonary edema that was possibly obscuring the pulmonary nodule at that time.
[2023-10-02] MEDS: MEDROL DOSEPAK 4 MG PER TAB PO SCH (06:08)
[2023-10-02 06:18] LABS: BASOPHILS % (AUTO) 0.2 % (0.2-1.0); EOSINOPHILS # (AUTO) 0.1 x10^3/uL (0.0-0.2); EOSINOPHILS % (AUTO) 0.5 % (0.9-2.9); HEMATOCRIT 36.5 % (36.0-47.0); HEMOGLOBIN 11.7 g/dL (12.0-16.0); LYMPHOCYTES # (AUTO) 0.9 X10^3/uL (1.3-2.9); LYMPHOCYTES % (AUTO) 6.4 % (21.0-51.0); MEAN CORPUSCULAR HEMOGLOBIN 27.5 pg (27.0-34.0); MONOCYTES # (AUTO) 1.5 x10^3/uL (0.3-0.8); MONOCYTES % (AUTO) 11.2 % (0.0-13.0); NEUTROPHILS # (AUTO) 11.2 x10^3/uL (2.2-4.8); NEUTROPHILS % (AUTO) 81.7 % (42.0-75.0); PLATELET COUNT 171 X10^3/uL (150.0-450.0); RED BLOOD COUNT 4.25 X10^6/uL (3.5-5.4); RED CELL DISTRIBUTION WIDTH 23.6 % (11.6-16.5); WHITE BLOOD COUNT 13.7 X10^3/uL (3.6-10.0)
[2023-10-02 06:35] LABS: ALANINE AMINOTRANSFERASE 36 Units/L (12-78); ALBUMIN 2.4 g/dL (3.4-5.0); ALKALINE PHOSPHATASE 78 Units/L (46-116); ASPARTATE AMINO TRANSFERASE 13 Units/L (15-37); BLOOD UREA NITROGEN 11 mg/dL (7-18); CALCIUM 7.9 mg/dL (8.5-10.1); CARBON DIOXIDE 34.5 mmol/L (21-32); CHLORIDE 105 mmol/L (98-107); COR CA(FOR HYPOALB) 9.2 mg/dL (8.5-10.1); CREATININE 0.57 mg/dL (0.55-1.02); GLUCOSE 105 mg/dL (65-99); MAGNESIUM 2.1 mg/dL (2.0-2.9); POTASSIUM 4.8 mmol/L (3.5-5.1); SODIUM 141 mmol/L (136-145); TOTAL PROTEIN 5.1 g/dL (6.4-8.2); eGFR NON BLACK RACES > 60 (>60)
[2023-10-02 06:51] LABS: BAND NEUTROPHILS % 3 % (0-10); PLATELET MORPHOLOGY COMMENT NORMAL (NORMAL)
[2023-10-02 06:52] LABS: ANISOCYTOSIS 2+
--- NOTE | 2023-10-02 07:51 | RAD ---
EXAM: CHEST, 1 VIEW HISTORY: pneumonia ; COMPARISON: No relevant prior studies were available for comparison at the time of interpretation. TECHNIQUE: CHEST, 1 VIEW FINDINGS: Chest: Lines and tubes: None Mediastinum: Cardiac and mediastinal shadow is within normal limits for size and contour. Pulmonary vessels: No pulmonary vascular congestion. Lung reed: No suspicious airspace opacity. Pleura: No effusion. No pneumothorax. Bones and soft tissues: No acute osseous or soft tissue abnormality. IMPRESSION: 1. No acute cardiopulmonary abnormality THIS IS AN ELECTRONICALLY VERIFIED FINAL REPORT 10/02/2023 7:48 AM - Electronically signed by Fredo Rubio MD
[2023-10-02] MEDS: PHARMACY COMMENT IV NR ×2 (08:24→11:44)
[2023-10-02 09:04] LABS: CREATININE 0.81 mg/dL (0.55-1.02); TOBRAMYCIN,TROUGH 0.7 ug/mL (0-2)
--- NOTE | 2023-10-02 19:33 | PCM.PROG ---
Progress Note Progress Note for Day of Date of Exam: 10/02/23 Subjective Subjective: The patient had no acute events overnight. She is feeling better this morning she reports. Chest x-ray shows that her pneumonia has cleared. She still has an elevated white count at 13,600 but is coming down. She did have a very low-grade fever last night and because of that and her elevated white count we will keep her another day and plan on discharging her tomorrow morning as long as she is afebrile over the next 24 hours. Past Medical Family Social History Allergies: Allergies sulfacetamide Allergy (Unknown, Verified 09/17/23 07:40) Reason: Drug allergy Sulfa (Sulfonamide Antibiotics) [SULFA] Allergy (Verified 09/17/23 07:40) Review of Systems ROS: No change since H&P Vital Signs and I&O's Vital Signs: Vital Signs Temperature 97.6 F Temperature 97.6 F Pulse Rate [Left Brachial] 71 Pulse Rate [Left Brachial] 81 Respiratory Rate 17 Respiratory Rate 17 Respiratory Rate 17 Respiratory Rate 17 Blood Pressure [Left Arm] 113/59 Blood Pressure [Left Arm] 103/59 O2 Sat by Pulse Oximetry 96 O2 Sat by Pulse Oximetry 96 O2 Sat by Pulse Oximetry 95 Intake and Output: Intake & Output 09/30/23 10/01/23 10/02/23 10/03/23 11:59 11:59 11:59 11:59 Intake Total 3472 / 3472 4535 / 4535 3260 / 3260 1746 / 1746 Balance 3472 / 3472 4535 / 4535 3260 / 3260 1746 / 1746 Physical Exam Oriented: Normal, Time, Person and Place Eyes: Normal Ear: Normal Nose: Normal Throat: Normal Respiratory: Normal, Left (Left lower lobe) and Inferior; negative Wheezes or Rales Cardiovascular: Normal Auscultation: Bowel Sounds: Normal Tenderness: Epigastric and Mild Skin: Normal Musculoskeletal: Normal Psychiatric: Normal Mood Description: Calm Affect: Normal Speech Pattern: Clear and Appropriate Laboratory and Diagnostics 10/02/23 05:24 10/02/23 08:35 Labs: 09/28/23 13:40 Sputum - Expectorated Sputum Sputum Culture - Final Escherichia Coli Esbl 09/28/23 13:40 Sputum - Expectorated Sputum - Final 09/17/23 07:55 Blood Blood Culture - Final 09/17/23 08:04 Blood Blood Culture - Final 09/19/23 10:15 Sputum - Expectorated Sputum Sputum Culture - Final Escherichia Coli Esbl 09/19/23 10:15 Sputum - Expectorated Sputum - Final Laboratory WBC 13.7 X10^3/uL (3.6-10.0) H 10/02/23 05:24 RBC 4.25 X10^6/uL (3.5-5.4) 10/02/23 05:24 Hgb 11.7 g/dL (12.0-16.0) L 10/02/23 05:24 Hct 36.5 % (36.0-47.0) 10/02/23 05:24 MCV 86.0 fL (80.0-100.0) 10/02/23 05:24 MCH 27.5 pg (27.0-34.0) 10/02/23 05:24 MCHC 32.0 g/dL (33.0-35.0) L 10/02/23 05:24 RDW 23.6 % (11.6-16.5) H 10/02/23 05:24 Plt Count 171 X10^3/uL (150.0-450.0) 10/02/23 05:24 Plt Count Comment Adequate (ADEQUATE) 10/02/23 05:24 MPV 9.0 fL (7.4-11.0) 10/02/23 05:24 Neut % (Auto) 81.7 % (42.0-75.0) H 10/02/23 05:24 Lymph % (Auto) 6.4 % (21.0-51.0) L 10/02/23 05:24 [place] % (Auto) 11.2 % (0.0-13.0) 10/02/23 05:24 Eos % (Auto) 0.5 % (0.9-2.9) L 10/02/23 05:24 Baso % (Auto) 0.2 % (0.2-1.0) 10/02/23 05:24 Neut # (Auto) 11.2 x10^3/uL (2.2-4.8) H 10/02/23 05:24 Lymph # (Auto) 0.9 X10^3/uL (1.3-2.9) L 10/02/23 05:24 [place] # (Auto) 1.5 x10^3/uL (0.3-0.8) H 10/02/23 05:24 Eos # (Auto) 0.1 x10^3/uL (0.0-0.2) 10/02/23 05:24 Baso # (Auto) 0.0 X10^3/uL (0.0-0.1) 10/02/23 05:24 Absolute Nucleated RBC 0.1 /100WBC 10/02/23 05:24 Total Counted 100 10/02/23 05:24 Neutrophils % (Manual) 78 % (39-76) H 10/02/23 05:24 Band Neutrophils % 3 % (0-10) 10/02/23 05:24 Lymphocytes % (Manual) 8 % (13-43) L 10/02/23 05:24 Monocytes % (Manual) 10 % (4-9) H 10/02/23 05:24 Eosinophils % (Manual) 1 % (0-6) 10/02/23 05:24 Basophils % (Manual) 0 % (0-1) 09/22/23 05:20 Metamyelocytes % 1 09/24/23 04:10 Plt Morphology Comment Normal (NORMAL) 10/02/23 05:24 RBC Morphology Abnormal (NORMAL) A 10/02/23 05:24 Hypochromasia Slight A 09/21/23 06:05 Anisocytosis 2+ A 10/02/23 05:24 Ovalocytes Slight A 09/26/23 05:20 Schistocytes Slight A 09/26/23 05:20 PT 13.8 SECONDS (11.8-14.3) 09/17/23 07:55 INR Target Range - 09/17/23 07:55 INR 1.08 (0.8-1.3) 09/17/23 07:55 APTT 25.2 SECONDS (22.9-36.5) 09/17/23 07:55 PTT Comment - 09/17/23 07:55 Sample Site [place]rad 09/17/23 07:54 ABG pH 7.430 (7.35-7.45) 09/17/23 07:54 ABG pCO2 38.0 mmHg (35.0-45.0) 09/17/23 07:54 ABG pO2 49.0 mmHg (80.0-100.0) L* 09/17/23 07:54 ABG HCO3 25.2 mmol/L (22-26) 09/17/23 07:54 ABG O2 Saturation 85.0 % (90-100) L 09/17/23 07:54 ABG Base Excess 1.0 mmol/L (-2.0-2.0) 09/17/23 07:54 Reagan Test Pos 09/17/23 07:54 A-a Gradient 103.0 mmHg 09/17/23 07:54 FiO2 28.0 09/17/23 07:54 Blood Gas Comments Pt negro well. kg/eb 09/17/23 07:54 Sodium 141 mmol/L (136-145) 10/02/23 05:24 Corrected Sodium TNP 10/02/23 05:24 Potassium 4.8 mmol/L (3.5-5.1) 10/02/23 05:24 Chloride 105 mmol/L (98-107) 10/02/23 05:24 Carbon Dioxide 34.5 mmol/L (21-32) H 10/02/23 05:24 BUN 11 mg/dL (7-18) 10/02/23 05:24 Creatinine 0.81 mg/dL (0.55-1.02) 10/02/23 08:35 Est GFR (MDRD) Af Amer > 60 (>60) 10/02/23 05:24 Est GFR (MDRD) Non-Af > 60 (>60) 10/02/23 05:24 Glucose 105 mg/dL (65-99) H 10/02/23 05:24 POC Glucose (mg/dL) 130 mg/dL (65-99) H 09/27/23 05:34 Lactic Acid 1.9 mmol/L (0.4-2.0) 09/19/23 07:15 Calcium 7.9 mg/dL (8.5-10.1) L 10/02/23 05:24 Corrected Calcium 9.2 mg/dL (8.5-10.1) 10/02/23 05:24 Magnesium 2.1 mg/dL (2.0-2.9) 10/02/23 05:24 Total Bilirubin 0.40 mg/dL (0.2-1.0) 10/02/23 05:24 AST 13 Units/L (15-37) L 10/02/23 05:24 ALT 36 Units/L (12-78) 10/02/23 05:24 Alkaline Phosphatase 78 Units/L (46-116) 10/02/23 05:24 Creatine Kinase 29 Units/L (26-192) 09/17/23 07:55 Troponin I High Sens 7.0 ng/L (4.0-60.0) 09/17/23 07:55 B-Natriuretic Peptide 10.1 pg/mL (0-79) 09/17/23 07:55 Total Protein 5.1 g/dL (6.4-8.2) L 10/02/23 05:24 Albumin 2.4 g/dL (3.4-5.0) L 10/02/23 05:24 Globulin 2.7 g/dL (2.5-4.5) 10/02/23 05:24 Albumin/Globulin Ratio 0.9 Ratio (1.1-2.1) L 10/02/23 05:24 Free T4 1.05 ng/dL (0.76-1.46) 09/20/23 06:05 Free T3 pg/dL 2.0 pg/mL (2.5-4.3) L 09/20/23 06:05 TSH 3rd Generation 0.057 uIU/mL (0.358-3.74) L 09/20/23 06:05 Specimen Type Random urine 09/17/23 08:20 Urine Color Yellow (YELLOW) 09/17/23 08:20 Urine Appearance Clear (CLEAR) 09/17/23 08:20 Urine pH 5.0 (5.0 - 8.0) 09/17/23 08:20 Ur Specific [place] 1.015 (1.000-1.030) 09/17/23 08:20 Urine Protein 2+ (NEGATIVE) 09/17/23 08:20 Urine Glucose (UA) Negative (NEGATIVE) 09/17/23 08:20 Urine Ketones Negative (NEGATIVE) 09/17/23 08:20 Urine Blood Negative (NEGATIVE) 09/17/23 08:20 Urine Nitrite Negative (NEGATIVE) 09/17/23 08:20 Urine Bilirubin Negative (NEGATIVE) 09/17/23 08:20 Urine Urobilinogen Normal (NORMAL) 09/17/23 08:20 Ur Leukocyte Esterase Negative (NEGATIVE) 09/17/23 08:20 Urine RBC None seen /HPF (0-3) 09/17/23 08:20 Urine WBC 0-2 /HPF (0-5) 09/17/23 08:20 Ur Squamous Epith Cells Moderate /HPF (NEGATIVE) 09/17/23 08:20 Urine Bacteria Negative /HPF (NEGATIVE) 09/17/23 08:20 Ur Culture Indicated? No/not indicated 09/17/23 08:20 Tobramycin Peak 16.8 ug/mL (4-8) H 10/02/23 12:02 Tobramycin Trough 0.7 ug/mL (0-2) 10/02/23 08:35 SARS-CoV-2 (PCR) Negative (NEGATIVE) 09/17/23 08:12 Influenza Type A (PCR) Negative (NEGATIVE) 09/17/23 08:12 Influenza Type B (PCR) Negative (NEGATIVE) 09/17/23 08:12 RSV (PCR) Negative (NEGATIVE) 09/17/23 08:12 Resp Viral Panel (PCR) See scanned report 09/28/23 13:01 Radiology Reviewed: Yes Plan (1) Pneumonia: Status: Acute Qualifiers: Laterality: left Lung location: unspecified part of lung Pneumonia type: due to Escherichia coli Qualified Code(s): J15.5 - Pneumonia due to Escherichia coli Plan: Continue IV tobramycin and Zyvox. Plan on discharge home in the morning if she remains afebrile for the next 24 hours and her white blood cell count normalizes. (2) Abdominal pain: Status: Acute Qualifiers: Abdominal location: epigastric Qualified Code(s): R10.13 - Epigastric pain (3) Hypomagnesemia: Status: Acute Plan: Start magnesium oxide 400 mg p.o. twice daily. (4) COPD exacerbation: Status: Acute Plan: The patient received Solu-Medrol 125 mg IV x 1 in the emergency department and then was started on 40 mg IV twice daily. I will go ahead and increase her to 60 mg IV twice daily to see if we can get her hypoxia improved sooner. (5) Gastroparesis: Status: None (6) Thrombocytopenia: Status: Acute Plan: Follow daily platelet level. GI protection with Protonix 40 mg IV twice daily. (7) Atrial fibrillation: Status: Chronic Qualifiers: Atrial fibrillation type: unspecified Qualified Code(s): I48.91 - Unspecified atrial fibrillation Plan: Continue carvedilol 25 mg p.o. twice daily and Eliquis 5 mg p.o. twice daily. (8) History of CVA with residual deficit: Status: Acute (9) Chronic low back pain: Status: Acute Qualifiers: Back pain laterality: unspecified Sciatica presence: unspecified whether sciatica present Qualified Code(s): M54.50 - Low back pain, unspec ified; G89.29 - Other chronic pain Plan: The patient may resume her [place]. (10) Primary hypertension: Status: Acute Plan: Add losartan 50 mg 1 p.o. daily. Recheck blood pressure tomorrow morning. (11) Nodule of apex of right lung: Status: Acute Plan: We will get the patient set up with a PETCT scan as an outpatient in [place], [place]. This is a new finding that was not seen on her last CT scan of the lungs which was in May 2019. However, the last CT scan the patient had pneumonia and a pulmonary edema that was possibly obscuring the pulmonary nodule at that time.
[2023-10-02 23:53] VITALS: O2SAT 97
[2023-10-03 04:57] LABS: BASOPHILS % (AUTO) 0.4 % (0.2-1.0); EOSINOPHILS # (AUTO) 0.1 x10^3/uL (0.0-0.2); EOSINOPHILS % (AUTO) 1.1 % (0.9-2.9); HEMATOCRIT 35.2 % (36.0-47.0); HEMOGLOBIN 11.2 g/dL (12.0-16.0); LYMPHOCYTES # (AUTO) 1.5 X10^3/uL (1.3-2.9); LYMPHOCYTES % (AUTO) 12.5 % (21.0-51.0); MEAN CORPUSCULAR HEMOGLOBIN 27.3 pg (27.0-34.0); MEAN CORPUSCULAR HGB CONC 31.7 g/dL (33.0-35.0); MEAN CORPUSCULAR VOLUME 86.2 fL (80.0-100.0); MEAN PLATELET VOLUME 8.6 fL (7.4-11.0); MONOCYTES # (AUTO) 1.5 x10^3/uL (0.3-0.8); MONOCYTES % (AUTO) 12.9 % (0.0-13.0); NEUTROPHILS # (AUTO) 8.7 x10^3/uL (2.2-4.8); NEUTROPHILS % (AUTO) 73.1 % (42.0-75.0); PLATELET COUNT 156 X10^3/uL (150.0-450.0); RED BLOOD COUNT 4.09 X10^6/uL (3.5-5.4); RED CELL DISTRIBUTION WIDTH 23.1 % (11.6-16.5)
[2023-10-03 05:03] LABS: ALANINE AMINOTRANSFERASE 37 Units/L (12-78); ALBUMIN 2.3 g/dL (3.4-5.0); ALKALINE PHOSPHATASE 69 Units/L (46-116); BLOOD UREA NITROGEN 12 mg/dL (7-18); CALCIUM 7.9 mg/dL (8.5-10.1); CARBON DIOXIDE 36.9 mmol/L (21-32); CHLORIDE 107 mmol/L (98-107); COR CA(FOR HYPOALB) 9.3 mg/dL (8.5-10.1); CREATININE 0.63 mg/dL (0.55-1.02); GLUCOSE 92 mg/dL (65-99); SODIUM 142 mmol/L (136-145); TOTAL PROTEIN 4.9 g/dL (6.4-8.2); eGFR NON BLACK RACES > 60 (>60)
[2023-10-03] MEDS: MEDROL DOSEPAK 4 MG PER TAB PO SCH (05:17)
[2023-10-03 05:24] LABS: ANISOCYTOSIS 2+; BAND NEUTROPHILS % 1 % (0-10); PLATELET MORPHOLOGY COMMENT NORMAL (NORMAL)
[2023-10-03 05:29] LABS: ASPARTATE AMINO TRANSFERASE 20 Units/L (15-37)
--- NOTE | 2023-10-03 13:17 | PCM.DCPLAN ---
DISCHARGE SUMMARY Admission Date Date of Admission: 09/17/23 Discharge Date Discharge Date: 10/03/23 Admission Diagnoses (1) Pneumonia: Status: Acute (2) Abdominal pain: Status: Acute (3) Hypomagnesemia: Status: Acute (4) COPD exacerbation: Status: Acute (5) Gastroparesis: Status: None (6) Thrombocytopenia: Status: Acute (7) Atrial fibrillation: Status: Chronic (8) History of CVA with residual deficit: Status: Acute (9) Chronic low back pain: Status: Acute (10) Primary hypertension: Status: Acute (11) Nodule of apex of right lung: Status: Acute Discharge Diagnoses Discharge Diagnosis: 1. Pneumonia secondary to ESBL E. coli 2. Suspected nosocomial left lower lobe pneumonia 3. Abdominal pain 4. Hypomagnesemiaresolved 5. Nodule left apex of right lung 6. Primary hypertension 7. Pulmonary candidiasis 8. History of atrial fibrillation 9. COPD exacerbation 10. History of CVA with residual deficits 12. Thrombocytopenia 13. Gastroparesis Discharge Medications Discharge Medications: Prescriptions: Hospital Course Vital Signs: Vital Signs Temperature 98.0 F Pulse Rate [Left Brachial] 68 Pulse Rate 80 Respiratory Rate 21 Respiratory Rate 21 Blood Pressure [Left Arm] 127/60 O2 Sat by Pulse Oximetry 97 O2 Sat by Pulse Oximetry 97 Latest Lab Results: Laboratory Last Values WBC 12.0 X10^3/uL (3.6-10.0) H 10/03/23 04:30 RBC 4.09 X10^6/uL (3.5-5.4) 10/03/23 04:30 Hgb 11.2 g/dL (12.0-16.0) L 10/03/23 04:30 Hct 35.2 % (36.0-47.0) L 10/03/23 04:30 MCV 86.2 fL (80.0-100.0) 10/03/23 04:30 MCH 27.3 pg (27.0-34.0) 10/03/23 04:30 MCHC 31.7 g/dL (33.0-35.0) L 10/03/23 04:30 RDW 23.1 % (11.6-16.5) H 10/03/23 04:30 Plt Count 156 X10^3/uL (150.0-450.0) 10/03/23 04:30 Plt Count Comment Adequate (ADEQUATE) 10/03/23 04:30 MPV 8.6 fL (7.4-11.0) 10/03/23 04:30 Neut % (Auto) 73.1 % (42.0-75.0) 10/03/23 04:30 Lymph % (Auto) 12.5 % (21.0-51.0) L 10/03/23 04:30 [place] % (Auto) 12.9 % (0.0-13.0) 10/03/23 04:30 Eos % (Auto) 1.1 % (0.9-2.9) 10/03/23 04:30 Baso % (Auto) 0.4 % (0.2-1.0) 10/03/23 04:30 Neut # (Auto) 8.7 x10^3/uL (2.2-4.8) H 10/03/23 04:30 Lymph # (Auto) 1.5 X10^3/uL (1.3-2.9) 10/03/23 04:30 [place] # (Auto) 1.5 x10^3/uL (0.3-0.8) H 10/03/23 04:30 Eos # (Auto) 0.1 x10^3/uL (0.0-0.2) 10/03/23 04:30 Baso # (Auto) 0.0 X10^3/uL (0.0-0.1) 10/03/23 04:30 Absolute Nucleated RBC 0.1 /100WBC 10/03/23 04:30 Total Counted 100 10/03/23 04:30 Neutrophils % (Manual) 79 % (39-76) H 10/03/23 04:30 Band Neutrophils % 1 % (0-10) 10/03/23 04:30 Lymphocytes % (Manual) 14 % (13-43) 10/03/23 04:30 Monocytes % (Manual) 4 % (4-9) 10/03/23 04:30 Eosinophils % (Manual) 2 % (0-6) 10/03/23 04:30 Basophils % (Manual) 0 % (0-1) 09/22/23 05:20 Metamyelocytes % 1 09/24/23 04:10 Plt Morphology Comment Normal (NORMAL) 10/03/23 04:30 RBC Morphology Abnormal (NORMAL) A 10/03/23 04:30 Hypochromasia Slight A 09/21/23 06:05 Anisocytosis 2+ A 10/03/23 04:30 Ovalocytes Slight A 09/26/23 05:20 Schistocytes Slight A 09/26/23 05:20 PT 13.8 SECONDS (11.8-14.3) 09/17/23 07:55 INR Target Range - 09/17/23 07:55 INR 1.08 (0.8-1.3) 09/17/23 07:55 APTT 25.2 SECONDS (22.9-36.5) 09/17/23 07:55 PTT Comment - 09/17/23 07:55 Sample Site Lrad 09/17/23 07:54 ABG pH 7.430 (7.35-7.45) 09/17/23 07:54 ABG pCO2 38.0 mmHg (35.0-45.0) 09/17/23 07:54 ABG pO2 49.0 mmHg (80.0-100.0) L* 09/17/23 07:54 ABG HCO3 25.2 mmol/L (22-26) 09/17/23 07:54 ABG O2 Saturation 85.0 % (90-100) L 09/17/23 07:54 ABG Base Excess 1.0 mmol/L (-2.0-2.0) 09/17/23 07:54 Reagan Test Pos 09/17/23 07:54 A-a Gradient 103.0 mmHg 09/17/23 07:54 FiO2 28.0 09/17/23 07:54 Blood Gas Comments Pt negro well. kg/eb 09/17/23 07:54 Sodium 142 mmol/L (136-145) 10/03/23 04:30 Corrected Sodium TNP 10/03/23 04:30 Potassium 5.0 mmol/L (3.5-5.1) 10/03/23 04:30 Chloride 107 mmol/L (98-107) 10/03/23 04:30 Carbon Dioxide 36.9 mmol/L (21-32) H 10/03/23 04:30 BUN 12 mg/dL (7-18) 10/03/23 04:30 Creatinine 0.63 mg/dL (0.55-1.02) 10/03/23 04:30 Est GFR (MDRD) Af Amer > 60 (>60) 10/03/23 04:30 Est GFR (MDRD) Non-Af > 60 (>60) 10/03/23 04:30 Glucose 92 mg/dL (65-99) 10/03/23 04:30 POC Glucose (mg/dL) 130 mg/dL (65-99) H 09/27/23 05:34 Lactic Acid 1.9 mmol/L (0.4-2.0) 09/19/23 07:15 Calcium 7.9 mg/dL (8.5-10.1) L 10/03/23 04:30 Corrected Calcium 9.3 mg/dL (8.5-10.1) 10/03/23 04:30 Magnesium 2.1 mg/dL (2.0-2.9) 10/02/23 05:24 Total Bilirubin 0.40 mg/dL (0.2-1.0) 10/03/23 04:30 AST 20 Units/L (15-37) 10/03/23 04:30 ALT 37 Units/L (12-78) 10/03/23 04:30 Alkaline Phosphatase 69 Units/L (46-116) 10/03/23 04:30 Creatine Kinase 29 Units/L (26-192) 09/17/23 07:55 Troponin I High Sens 7.0 ng/L (4.0-60.0) 09/17/23 07:55 B-Natriuretic Peptide 10.1 pg/mL (0-79) 09/17/23 07:55 Total Protein 4.9 g/dL (6.4-8.2) L 10/03/23 04:30 Albumin 2.3 g/dL (3.4-5.0) L 10/03/23 04:30 Globulin 2.6 g/dL (2.5-4.5) 10/03/23 04:30 Albumin/Globulin Ratio 0.9 Ratio (1.1-2.1) L 10/03/23 04:30 Free T4 1.05 ng/dL (0.76-1.46) 09/20/23 06:05 Free T3 pg/dL 2.0 pg/mL (2.5-4.3) L 09/20/23 06:05 TSH 3rd Generation 0.057 uIU/mL (0.358-3.74) L 09/20/23 06:05 Specimen Type Random urine 09/17/23 08:20 Urine Color Yellow (YELLOW) 09/17/23 08:20 Urine Appearance Clear (CLEAR) 09/17/23 08:20 Urine pH 5.0 (5.0 - 8.0) 09/17/23 08:20 Ur Specific [place] 1.015 (1.000-1.030) 09/17/23 08:20 Urine Protein 2+ (NEGATIVE) 09/17/23 08:20 Urine Glucose (UA) Negative (NEGATIVE) 09/17/23 08:20 Urine Ketones Negative (NEGATIVE) 09/17/23 08:20 Urine Blood Negative (NEGATIVE) 09/17/23 08:20 Urine Nitrite Negative (NEGATIVE) 09/17/23 08:20 Urine Bilirubin Negative (NEGATIVE) 09/17/23 08:20 Urine Urobilinogen Normal (NORMAL) 09/17/23 08:20 Ur Leukocyte Esterase Negative (NEGATIVE) 09/17/23 08:20 Urine RBC None seen /HPF (0-3) 09/17/23 08:20 Urine WBC 0-2 /HPF (0-5) 09/17/23 08:20 Ur Squamous Epith Cells Moderate /HPF (NEGATIVE) 09/17/23 08:20 Urine Bacteria Negative /HPF (NEGATIVE) 09/17/23 08:20 Ur Culture Indicated? No/not indicated 09/17/23 08:20 Random Tobramycin 1.5 ug/mL 10/02/23 22:13 Tobramycin Peak 16.8 ug/mL (4-8) H 10/02/23 12:02 Tobramycin Trough 0.7 ug/mL (0-2) 10/02/23 08:35 SARS-CoV-2 (PCR) Negative (NEGATIVE) 09/17/23 08:12 Influenza Type A (PCR) Negative (NEGATIVE) 09/17/23 08:12 Influenza Type B (PCR) Negative (NEGATIVE) 09/17/23 08:12 RSV (PCR) Negative (NEGATIVE) 09/17/23 08:12 Resp Viral Panel (PCR) See scanned report 09/28/23 13:01 Hospital Course: This patient is a pleasant 72-year-old white female with a known history of advanced COPD with a history of multiple COPD exacerbations, and a history of pneumonia. Did develop some shortness of breath overnight. At about 1:00 this morning, the patient's symptoms began. The daughter states that she developed a fever early this morning and complained of some shortness of breath. She noted that her temperature was up to 101.4. They gave her some ibuprofen, and when she got there, the temperature was 99. The patient was discharged from the hospital three weeks ago with pneumonia. A few weeks ago, I saw the patient in the office, and she felt much better. She has been doing well since her hospital discharge, but it looks like she has a new pneumonia that we need to treat. The patient started on pneumonia protocol and blood cultures x 2 have been drawn. An AIT sputum culture has been obtained and sent off; a routine sputum culture has not been collected at this time. The patient has been started on Zosyn and IV Levaquin. She did receive 1 g of Rocephin IV x 1 in the emergency department. She has also been started on DuoNebs, and her home medications have been restarted as well. The patient states she feels much better this morning. She is sitting up in bed talking to everyone and does not appear very ill at this time. We will continue her current treatment and recheck routine labs and chest X-rays again tomorrow morning. The patient did have elevated lactic acid, so we will need to follow up with her blood cultures to ensure that she is not septic. We will repeat another lactic acid per protocol today. I also see that the patient's platelet count has dropped so we will make sure that we give her IV Protonix for GI protection. It is a good sign that her BUN has not increased in regard to her creatinine level. Patient was started on IV Invanz because she had a recent hospitalization and we wanted to make sure we covered a broad range of difficulty dizziness. Patient's white count came down over the days and her sputum culture grew out E. coli ESBL. It was sensitive to the Invanz she was on with a 0.5 VIDAL. Will continue her on that about a week in her pneumonia and improve much and her white blood cell count and when normalized however after a week her white count went back up and chest x-ray showed a worsening left lower lobe pneumonia. Will continue the IV antibiotics for the next few days and her white blood cell count continue to go up and left lower lobe pneumonia got worse. We then changed her over to IV Zyvox and tobramycin. After this her pneumonia rapidly improved over the next week and about 3 to 4 days prior to discharge her left lower pneumonia had cleared up. Her white blood cell count which was greater than 20,000 has now come down to 12,000 on the day of discharge. She is afebrile over the last 24 hours and she feels good she is able to ambulate on her own. Will go ahead and discharge her home today to help minimize the risk for developing another nosocomial pneumonia. Will continue her on oral Zyvox 600 mg 1 p.o. twice daily for empiric coverage of MRSA which we never did culture but did treat her empirically for. We will also give her doxycycline 100 mg p.o. twice daily kamron use the second sputum culture we did when her white count went up shows that she grew out E. coli with ESBL again. It is sensitive to the doxycycline so she will be covered for that. Discharge disposition patient was discharged home in stable condition and she will be following up with me within a week for hospital follow-up. Discharge medications patient will resume her home medications. New medications will be losartan 50 mg 1 p.o. daily, Diflucan 150 mg 1 p.o. daily x 1 week, doxycycline 100 mg 1 p.o. twice daily x 1 week and Zyvox 600 mg 1 p.o. twice daily x 1 week. Will also give the patient Zofran 8 mg 1 p.o. every 8 hours as needed nausea #30 with 2 refills. She requested this because she has a history of chronic nausea.
[2023-10-03 14:20] VITALS: BP 127/61; PULSE 73; RESP 18; TEMP 97.8
[2023-10-04] MEDS ORDERED: MEDROL DOSEPAK 4 MG PER TAB PO SCH (06:00)
== END 2023-10-03 14:40 | disposition home or self-care (01) | DRG 177 ==
LOC: ER 07:39 → MED/SURG 14:45
PROVIDERS: ADMIT Family Medicine; ATTEND Family Medicine
DX: I10 Essential (primary) hypertension; Z16.12 Extended spectrum beta lactamase (ESBL) resistance; J44.1 Chronic obstructive pulmonary disease with (acute) exacerbation; K21.9 Gastro-esophageal reflux disease without esophagitis; Z20.822 Contact with and (suspected) exposure to COVID-19; R91.1 Solitary pulmonary nodule; B96.89 Other specified bacterial agents as the cause of diseases classified elsewhere; M54.50 Low back pain, unspecified; E78.5 Hyperlipidemia, unspecified; E88.09 Other disorders of plasma-protein metabolism, not elsewhere classified; R26.89 Other abnormalities of gait and mobility; B37.1 Pulmonary candidiasis; E11.65 Type 2 diabetes mellitus with hyperglycemia; R94.31 Abnormal electrocardiogram [ECG] [EKG]; J15.5 Pneumonia due to Escherichia coli; R09.02 Hypoxemia; K31.84 Gastroparesis; E04.1 Nontoxic single thyroid nodule; R06.02 Shortness of breath; R00.0 Tachycardia, unspecified; I48.91 Unspecified atrial fibrillation; E83.42 Hypomagnesemia; R10.13 Epigastric pain; I69.30 Unspecified sequelae of cerebral infarction

== ENCOUNTER 2024-03-11 09:44 | Observation (INO) ==
--- NOTE | 2024-03-11 09:58 | DR.DIZZY ---
HPI Time seen Time Seen by Provider: 03/11/24 09:58 PMH PMH Past Medical History: Arthritis, Asthma, COPD, CVA, Dyslipidemia, GERD and Renal Disease Past Surgical History: Yes Surgical History: Abdominal Surgery, Appendectomy and Hysterectomy Family History Family Medical History: Diabetes Mellitus, Cancer, [place], Heart Failure and Hypertension Social History Do you use any recreational Drugs:: No PE Vital Signs Vitals: Vital Signs Temperature 97.6 F Pulse Rate 76 Pulse Rate 75 Pulse Rate 76 Pulse Rate 83 Pulse Rate 83 Pulse Rate 78 Pulse Rate 80 Pulse Rate 79 Pulse Rate 72 Pulse Rate 74 Pulse Rate 75 Pulse Rate 74 Respiratory Rate 23 Respiratory Rate 17 Respiratory Rate 16 Respiratory Rate 12 Respiratory Rate 25 Respiratory Rate 12 Respiratory Rate 12 Respiratory Rate 14 Respiratory Rate 42 Respiratory Rate 20 Respiratory Rate 23 Respiratory Rate 18 Blood Pressure 159/66 Blood Pressure 114/58 O2 Sat by Pulse Oximetry 100 O2 Sat by Pulse Oximetry 100 O2 Sat by Pulse Oximetry 100 O2 Sat by Pulse Oximetry 100 O2 Sat by Pulse Oximetry 99 O2 Sat by Pulse Oximetry 100 O2 Sat by Pulse Oximetry 99 O2 Sat by Pulse Oximetry 98 O2 Sat by Pulse Oximetry 100 O2 Sat by Pulse Oximetry 99 O2 Sat by Pulse Oximetry 98 O2 Sat by Pulse Oximetry 97 ROR Labs Reviewed 03/11/24 11:10 03/11/24 11:40 Laboratory: WBC 10.0 X10^3/uL (3.6-10.0) 03/11/24 11:10 RBC 4.20 X10^6/uL (3.5-5.4) 03/11/24 11:10 Hgb 12.9 g/dL (12.0-16.0) 03/11/24 11:10 Hct 39.3 % (36.0-47.0) 03/11/24 11:10 MCV 93.6 fL (80.0-100.0) 03/11/24 11:10 MCH 30.6 pg (27.0-34.0) 03/11/24 11:10 MCHC 32.7 g/dL (33.0-35.0) L 03/11/24 11:10 RDW 14.7 % (11.6-16.5) 03/11/24 11:10 Plt Count 164 X10^3/uL (150.0-450.0) 03/11/24 11:10 MPV 9.4 fL (7.4-11.0) 03/11/24 11:10 Neut % (Auto) 73.1 % (42.0-75.0) 03/11/24 11:10 Lymph % (Auto) 13.9 % (21.0-51.0) L 03/11/24 11:10 [place] % (Auto) 10.8 % (0.0-13.0) 03/11/24 11:10 Eos % (Auto) 1.4 % (0.9-2.9) 03/11/24 11:10 Baso % (Auto) 0.8 % (0.2-1.0) 03/11/24 11:10 Neut # (Auto) 7.3 x10^3/uL (2.2-4.8) H 03/11/24 11:10 Lymph # (Auto) 1.4 X10^3/uL (1.3-2.9) 03/11/24 11:10 [place] # (Auto) 1.1 x10^3/uL (0.3-0.8) H 03/11/24 11:10 Eos # (Auto) 0.1 x10^3/uL (0.0-0.2) 03/11/24 11:10 Baso # (Auto) 0.1 X10^3/uL (0.0-0.1) 03/11/24 11:10 Absolute Nucleated RBC 0.0 /100WBC 03/11/24 11:10 Sodium 145 mmol/L (136-145) 03/11/24 11:40 Corrected Sodium TNP 03/11/24 11:40 Potassium 4.5 mmol/L (3.5-5.1) 03/11/24 11:40 Chloride 108 mmol/L (98-107) H 03/11/24 11:40 Carbon Dioxide 35.2 mmol/L (21-32) H 03/11/24 11:40 BUN 12 mg/dL (7-18) 03/11/24 11:40 Creatinine 0.91 mg/dL (0.55-1.02) 03/11/24 11:40 Est GFR (MDRD) Af Amer > 60 (>60) 03/11/24 11:40 Est GFR (MDRD) Non-Af > 60 (>60) 03/11/24 11:40 Glucose 93 mg/dL (65-99) 03/11/24 11:40 Calcium 9.2 mg/dL (8.5-10.1) 03/11/24 11:40 Corrected Calcium 10.1 mg/dL (8.5-10.1) 03/11/24 11:40 Total Bilirubin 0.30 mg/dL (0.2-1.0) 03/11/24 11:40 AST 14 Units/L (15-37) L 03/11/24 11:40 ALT 18 Units/L (12-78) 03/11/24 11:40 Alkaline Phosphatase 128 Units/L (46-116) H 03/11/24 11:40 Creatine Kinase 41 Units/L (26-192) 03/11/24 11:40 Troponin I High Sens 7.0 ng/L (4.0-60.0) 03/11/24 11:40 B-Natriuretic Peptide 12.5 pg/mL (0-79) 03/11/24 11:40 Total Protein 6.2 g/dL (6.4-8.2) L 03/11/24 11:40 Albumin 2.9 g/dL (3.4-5.0) L 03/11/24 11:40 Globulin 3.3 g/dL (2.5-4.5) 03/11/24 11:40 Albumin/Globulin Ratio 0.9 Ratio (1.1-2.1) L 03/11/24 11:40 Specimen Type Catherized urine 03/11/24 12:37 Urine Color Yellow (YELLOW) 03/11/24 12:37 Urine Appearance Clear (CLEAR) 03/11/24 12:37 Urine pH 6.0 (5.0 - 8.0) 03/11/24 12:37 Ur Specific [place] 1.025 (1.000-1.030) 03/11/24 12:37 Urine Protein 2+ (NEGATIVE) 03/11/24 12:37 Urine Glucose (UA) Negative (NEGATIVE) 03/11/24 12:37 Urine Ketones Negative (NEGATIVE) 03/11/24 12:37 Urine Blood Negative (NEGATIVE) 03/11/24 12:37 Urine Nitrite Negative (NEGATIVE) 03/11/24 12:37 Urine Bilirubin Negative (NEGATIVE) 03/11/24 12:37 Urine Urobilinogen Normal (NORMAL) 03/11/24 12:37 Ur Leukocyte Esterase 1+ (NEGATIVE) 03/11/24 12:37 Urine RBC 0-2 /HPF (0-3) 03/11/24 12:37 Urine WBC 3-5 /HPF (0-5) 03/11/24 12:37 Ur Squamous Epith Cells Few /HPF (NEGATIVE) 03/11/24 12:37 Urine Bacteria Trace /HPF (NEGATIVE) 03/11/24 12:37 Urine Mucus Few /HPF (NEGATIVE) 03/11/24 12:37 Ur Culture Indicated? No/not indicated 03/11/24 12:37 Opioid Opioid Risk Tool Age (Marquez box if 16-45): No History of Preadolescent Sexual Abuse: No Total: 0 Total Score Risk Category: Low Risk Copyright: Isaac MICHAEL predicting aberrant behaviors Discharge Plan Diagnosis Discharge Problem: Syncopal episodes, AMS (altered mental status), Generalized weakness Discharge Plan Patient Disposition: 09 ADMITTED INPATIENT Condition: Stable Orders to Discharge Patient Discharge Orders: Transfer (Routine); Ordered 03/11/24 Ordered By: LIZ MADRID
[2024-03-11 10:07] VITALS: BMI 22.1
--- NOTE | 2024-03-11 11:06 | EKG ---
Test Reason : syncope Blood Pressure : */* mmHG Vent. Rate : 76 BPM Atrial Rate : 76 BPM P-R Int : 136 ms QRS Dur : 76 ms QT Int : 412 ms P-R-T Axes : 57 -24 34 degrees QTc Int : 463 ms Normal sinus rhythm Poor R-wave progression When compared with ECG of 05-OCT-2023 12:58, QRS axis shifted right Nonspecific T wave abnormality no longer evident in Lateral leads Confirmed by Kishor Estrada MD ([id number]) on 03/11/2024 12:30:56 PM Referred By: Confirmed By: Kishor Estrada MD
[2024-03-11 11:16] LABS: BASOPHILS # (AUTO) 0.1 X10^3/uL (0.0-0.1); BASOPHILS % (AUTO) 0.8 % (0.2-1.0); EOSINOPHILS # (AUTO) 0.1 x10^3/uL (0.0-0.2); EOSINOPHILS % (AUTO) 1.4 % (0.9-2.9); HEMATOCRIT 39.3 % (36.0-47.0); HEMOGLOBIN 12.9 g/dL (12.0-16.0); LYMPHOCYTES # (AUTO) 1.4 X10^3/uL (1.3-2.9); LYMPHOCYTES % (AUTO) 13.9 % (21.0-51.0); MEAN CORPUSCULAR HEMOGLOBIN 30.6 pg (27.0-34.0); MEAN CORPUSCULAR HGB CONC 32.7 g/dL (33.0-35.0); MEAN CORPUSCULAR VOLUME 93.6 fL (80.0-100.0); MEAN PLATELET VOLUME 9.4 fL (7.4-11.0); MONOCYTES # (AUTO) 1.1 x10^3/uL (0.3-0.8); MONOCYTES % (AUTO) 10.8 % (0.0-13.0); NEUTROPHILS # (AUTO) 7.3 x10^3/uL (2.2-4.8); NEUTROPHILS % (AUTO) 73.1 % (42.0-75.0); PLATELET COUNT 164 X10^3/uL (150.0-450.0); RED CELL DISTRIBUTION WIDTH 14.7 % (11.6-16.5)
--- NOTE | 2024-03-11 11:33 | CT ---
EXAM: CT head without contrast HISTORY: Altered mental status TECHNIQUE: Axial noncontrast images with coronal and sagittal reformats. Dose reduction procedures were used wi th mA/kv adjusted for body size. COMPARISON: 09/30/2022 FINDINGS: Ventricles, cortical sulci, and other CSF spaces are mildly enlarged consistent with generalized at rophy likely age-related. There is decreased attenuation in the periventricular white matter suggest kayla of small-vessel vascular disease. There is an old infarct in the right posterior subinsular marychuy on. There are no focal areas of abnormal attenuation to suggest recent or remote CVA, hemorrhage, co ntusion, mass lesion, or extra-axial fluid collections. Visualized sinuses are clear. The calvarium is intact. IMPRESSION: No acute intracranial abnormality identified Mild generalized atrophy likely age-related Diffuse small-vessel vascular disease Old lacunar infarct right posterior subinsular region THIS IS AN ELECTRONICALLY VERIFIED FINAL REPORT 03/11/2024 11:21 AM - Electronically signed by Arden Katz MD
[2024-03-11 12:08] LABS: ALANINE AMINOTRANSFERASE 18 Units/L (12-78); ALBUMIN 2.9 g/dL (3.4-5.0); ALKALINE PHOSPHATASE 128 Units/L (46-116); ASPARTATE AMINO TRANSFERASE 14 Units/L (15-37); BLOOD UREA NITROGEN 12 mg/dL (7-18); CALCIUM 9.2 mg/dL (8.5-10.1); CARBON DIOXIDE 35.2 mmol/L (21-32); CHLORIDE 108 mmol/L (98-107); COR CA(FOR HYPOALB) 10.1 mg/dL (8.5-10.1); CREATINE KINASE 41 Units/L (26-192); CREATININE 0.91 mg/dL (0.55-1.02); GLUCOSE 93 mg/dL (65-99); POTASSIUM 4.5 mmol/L (3.5-5.1); SODIUM 145 mmol/L (136-145); TOTAL PROTEIN 6.2 g/dL (6.4-8.2); eGFR NON BLACK RACES > 60 (>60)
[2024-03-11 12:49] LABS: BILIRUBIN,URINE NEGATIVE (NEGATIVE); BLOOD/HEMOGLOBIN,URINE NEGATIVE (NEGATIVE); GLUCOSE, URINE NEGATIVE (NEGATIVE); KETONES,URINE NEGATIVE (NEGATIVE); LEUKOCYTE ESTERASE ,URINE 1+ (NEGATIVE); NITRITES,URINE NEGATIVE (NEGATIVE); PROTEIN,URINE 2+ (NEGATIVE); UROBILINOGEN,URINE NORMAL (NORMAL)
[2024-03-11 13:00] LABS: APPEARANCE,URINE CLEAR (CLEAR); COLOR,URINE YELLOW (YELLOW)
[2024-03-11 13:01] LABS: BACTERIA,URINE TRACE /HPF (NEGATIVE); RBC,URINE 0-2 /HPF (0-3); SQUAMOUS EPITHELIAL CELL,UR FEW /HPF (NEGATIVE)
[2024-03-11] MEDS ORDERED: PROVENTIL NEB TX 0.083% 2.5MG/ 3ML NEB PRN (14:47)
[2024-03-11] MEDS: NS 1,000 ML IV 1,000 ML IV SCH (15:11)
--- NOTE | 2024-03-11 15:14 | RAD ---
EXAM: CHEST, 1 VIEW HISTORY: AMS; COMPARISON: Prior study or studies were utilized for comparison during interpretation with the most relevant nubia ed 10/05/2023 TECHNIQUE: CHEST, 1 VIEW FINDINGS: Chest: Lines and tubes: Cardiac leads overlie the chest. Mediastinum: Cardiac and mediastinal shadow is within normal limits for size and contour. Pulmonary vessels: No pulmonary vascular congestion. Lung reed: No suspicious airspace opacity. Pleura: No effusion. No pneumothorax. Bones and soft tissues: No acute osseous or soft tissue abnormality. IMPRESSION: 1. No acute cardiopulmonary abnormality THIS IS AN ELECTRONICALLY VERIFIED FINAL REPORT 03/11/2024 3:11 PM - Electronically signed by Fredo Rubio MD
[2024-03-11] MEDS: NEURONTIN CAP 400 MG PO SCH (23:20)
[2024-03-11] MEDS: LIORESAL PO PRN (23:21)
[2024-03-11] MEDS: ELIQUIS PO SCH (23:23)
[2024-03-12 05:58] LABS: BASOPHILS # (AUTO) 0.1 X10^3/uL (0.0-0.1); EOSINOPHILS # (AUTO) 0.2 x10^3/uL (0.0-0.2); EOSINOPHILS % (AUTO) 2.4 % (0.9-2.9); HEMATOCRIT 34.7 % (36.0-47.0); HEMOGLOBIN 11.6 g/dL (12.0-16.0); LYMPHOCYTES # (AUTO) 1.6 X10^3/uL (1.3-2.9); LYMPHOCYTES % (AUTO) 18.8 % (21.0-51.0); MEAN CORPUSCULAR HGB CONC 33.6 g/dL (33.0-35.0); MEAN CORPUSCULAR VOLUME 92.3 fL (80.0-100.0); MEAN PLATELET VOLUME 9.5 fL (7.4-11.0); MONOCYTES # (AUTO) 0.8 x10^3/uL (0.3-0.8); NEUTROPHILS # (AUTO) 5.6 x10^3/uL (2.2-4.8); NEUTROPHILS % (AUTO) 67.8 % (42.0-75.0); PLATELET COUNT 166 X10^3/uL (150.0-450.0); RED BLOOD COUNT 3.76 X10^6/uL (3.5-5.4); RED CELL DISTRIBUTION WIDTH 14.5 % (11.6-16.5); WHITE BLOOD COUNT 8.3 X10^3/uL (3.6-10.0)
[2024-03-12 06:31] LABS: ALANINE AMINOTRANSFERASE 17 Units/L (12-78); ALBUMIN 2.6 g/dL (3.4-5.0); ALKALINE PHOSPHATASE 119 Units/L (46-116); ASPARTATE AMINO TRANSFERASE 19 Units/L (15-37); BLOOD UREA NITROGEN 11 mg/dL (7-18); CALCIUM 8.8 mg/dL (8.5-10.1); CHLORIDE 110 mmol/L (98-107); CHOL/HDL RATIO 2.6 (0.0-5.0); CHOLESTEROL 128 mg/dL (0-200); COR CA(FOR HYPOALB) 9.9 mg/dL (8.5-10.1); CREATININE 0.61 mg/dL (0.55-1.02); GLUCOSE 100 mg/dL (65-99); HDL CHOLESTEROL 50 mg/dL (40-60); MAGNESIUM 1.9 mg/dL (2.0-2.9); POTASSIUM 4.7 mmol/L (3.5-5.1); SODIUM 146 mmol/L (136-145); TOTAL PROTEIN 5.5 g/dL (6.4-8.2); TRIGLYCERIDES 52 mg/dL (0-150); eGFR NON BLACK RACES > 60 (>60)
[2024-03-12] MEDS ORDERED: CONSULT PHARMACY - POTASSIUM & MAGNESIUM XX SCH (07:00)
[2024-03-12] MEDS: MAG-OX TAB PO SCH (08:06)
[2024-03-12 08:41] VITALS: BP 138/69; PULSE 76; RESP 20; TEMP 98.2; O2SAT 98
--- NOTE | 2024-03-12 11:16 | DR.SSS ---
SHORT STAY SUMMARY Admission Date Date of Admission: 03/11/24 Discharge Date Discharge Date: 03/12/24 Admission Diagnoses Admission Diagnoses: ICD-10 Codes 1. [id number] 2. R53.1Weakness 3. R41.82Altered mental status 4. J44.9Chronic obstructive pulmonary disease, unspecified 5. 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 [id number] 2. R53.1Weakness 3. R41.82Altered mental status 4. J44.9Chronic obstructive pulmonary disease, unspecified 5. 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 The syncope was associated with altered mental status and generalized weakness. She reportedly experienced significant sweating and felt she was about to pass out during previous instances of minor exertion, with increased sweating and a sensation of passing out occurring on prior occasions as well. She has described previous episodes of feeling lightheaded, especially when getting up or exerting herself. There was no history of significant fever prior to the incident. Upon admission, her vital signs and lab results were obta ined, which showed some variations in her blood work but no acute findings. Treatment prior to this visit includes oxygen therapy at home due to her COPD, but no new medications have been initiated recently. Haily Umanzor has a history of chronic obstructive pulmonary disease (COPD) and has experienced multiple episodes of altered mental status and syncope. Recent lab values include: Hemoglobin 11.6 (down from 12.9), BUN and creatinine normal, potassium levels marginally elevated, and elevated alkaline phosphatase of 119 (down from 128). She also has a notable lung nodule that has recently enlarged. There is a concern regarding underlying cardiovascular issues, as her previous screenings have indicated the potential for atrial fibrillation. Past Medical History Past Medical History: Arthritis, Asthma, COPD, CVA, Dyslipidemia, GERD and Renal Disease Additional Medical History: PE Past Surgical History Surgical History: Abdominal Surgery, Appendectomy and Hysterectomy Allergies Allergies Allergy/AdvReac Type Severity Reaction Status Date / Time sulfacetamide Allergy Unknown Verified 09/17/23 07:40 Sulfa (Sulfonamide Allergy Verified 09/17/23 07:40 Antibiotics) [SULFA] Medications Home Medications: sulfacetamide Allergy (Unknown, Verified 09/17/23 07:40) Sulfa (Sulfonamide Antibiotics) [SULFA] Allergy (Verified 09/17/23 07:40) CONTINUE taking the following medications docusate sodium 100 mg capsule 100 mg PO BID PRN 03/11/24 [History] Family History Family Medical History: Diabetes Mellitus, Cancer, [place], Heart Failure and Hypertension Social History Does patient currently use any type of tobacco product: No Have you used tobacco products in the last 12 months: No Type of Tobacco Use: Cigarettes Does any household member use tobacco: No Alcohol Use: None Review of Systems Constitutional: No Symptoms Reported and Other (General - tiredness and generalized weakness. Neurological - altered mental status; no lasting effects reported. Cardiovascular - episodes of syncope, increased heart rate noted during episodes; denies chest pain. Respiratory - reports using oxygen at home; SpO2 recorded at 98% on 2 liters during th) Eyes: No Symptoms Reported ENT: No Symptoms Reported Respiratory: No Symptoms Reported Cardiovascular: No Symptoms Reported Gastrointestinal: No Symptoms Reported Genitourinary: No Symptoms Reported Musculoskeletal: No Symptoms Reported Skin: No Symptoms Reported Neurological: No Symptoms Reported Physical Exam Vital Signs: Last Vital Signs Temp 98.2 F 03/12/24 08:00 Pulse 76 03/12/24 08:00 Resp 20 03/12/24 08:00 BP 138/69 03/12/24 08:00 Pulse Ox 98 03/12/24 08:00 O2 Del Method Nasal Cannula 03/12/24 09:00 O2 Flow Rate 2 03/12/24 09:00 FiO2 28 03/12/24 09:00 Oriented: Normal, Time, Person and Place Eyes: Normal Ear: Normal Nose: Normal Throat: Normal Respiratory: Clear Throughout Cardiovascular: Normal Auscultation: Bowel Sounds: Normal Palpation: Normal Tenderness: Normal Skin: Normal Musculoskeletal: Normal Psychiatric: Normal Mood Description: Calm Affect: Normal Speech Pattern: Clear and Appropriate Labs Labs: Laboratory Last Values WBC 8.3 X10^3/uL (3.6-10.0) 03/12/24 05:33 RBC 3.76 X10^6/uL (3.5-5.4) 03/12/24 05:33 Hgb 11.6 g/dL (12.0-16.0) L 03/12/24 05:33 Hct 34.7 % (36.0-47.0) L 03/12/24 05:33 MCV 92.3 fL (80.0-100.0) 03/12/24 05:33 MCH 31.0 pg (27.0-34.0) 03/12/24 05:33 MCHC 33.6 g/dL (33.0-35.0) 03/12/24 05:33 RDW 14.5 % (11.6-16.5) 03/12/24 05:33 Plt Count 166 X10^3/uL (150.0-450.0) 03/12/24 05:33 MPV 9.5 fL (7.4-11.0) 03/12/24 05:33 Neut % (Auto) 67.8 % (42.0-75.0) 03/12/24 05:33 Lymph % (Auto) 18.8 % (21.0-51.0) L 03/12/24 05:33 [place] % (Auto) 10.0 % (0.0-13.0) 03/12/24 05:33 Eos % (Auto) 2.4 % (0.9-2.9) 03/12/24 05:33 Baso % (Auto) 1.0 % (0.2-1.0) 03/12/24 05:33 Neut # (Auto) 5.6 x10^3/uL (2.2-4.8) H 03/12/24 05:33 Lymph # (Auto) 1.6 X10^3/uL (1.3-2.9) 03/12/24 05:33 [place] # (Auto) 0.8 x10^3/uL (0.3-0.8) 03/12/24 05:33 Eos # (Auto) 0.2 x10^3/uL (0.0-0.2) 03/12/24 05:33 Baso # (Auto) 0.1 X10^3/uL (0.0-0.1) 03/12/24 05:33 Absolute Nucleated RBC 0.0 /100WBC 03/12/24 05:33 Sodium 146 mmol/L (136-145) H 03/12/24 05:33 Corrected Sodium TNP 03/12/24 05:33 Potassium 4.7 mmol/L (3.5-5.1) 03/12/24 05:33 Chloride 110 mmol/L (98-107) H 03/12/24 05:33 Carbon Dioxide 28.0 mmol/L (21-32) 03/12/24 05:33 BUN 11 mg/dL (7-18) 03/12/24 05:33 Creatinine 0.61 mg/dL (0.55-1.02) 03/12/24 05:33 Est GFR (MDRD) Af Amer > 60 (>60) 03/12/24 05:33 Est GFR (MDRD) Non-Af > 60 (>60) 03/12/24 05:33 Glucose 100 mg/dL (65-99) H 03/12/24 05:33 Calcium 8.8 mg/dL (8.5-10.1) 03/12/24 05:33 Corrected Calcium 9.9 mg/dL (8.5-10.1) 03/12/24 05:33 Magnesium 1.9 mg/dL (2.0-2.9) L 03/12/24 05:33 Total Bilirubin 0.30 mg/dL (0.2-1.0) 03/12/24 05:33 AST 19 Units/L (15-37) 03/12/24 05:33 ALT 17 Units/L (12-78) 03/12/24 05:33 Alkaline Phosphatase 119 Units/L (46-116) H 03/12/24 05:33 Creatine Kinase 41 Units/L (26-192) 03/11/24 11:40 Troponin I High Sens 6.4 ng/L (4.0-60.0) 03/11/24 22:40 B-Natriuretic Peptide 12.5 pg/mL (0-79) 03/11/24 11:40 Total Protein 5.5 g/dL (6.4-8.2) L 03/12/24 05:33 Albumin 2.6 g/dL (3.4-5.0) L 03/12/24 05:33 Globulin 2.9 g/dL (2.5-4.5) 03/12/24 05:33 Albumin/Globulin Ratio 0.9 Ratio (1.1-2.1) L 03/12/24 05:33 Triglycerides 52 mg/dL (0-150) 03/12/24 05:33 Cholesterol 128 mg/dL (0-200) 03/12/24 05:33 LDL Cholesterol, Calc 68 mg/dL (0-100) 03/12/24 05:33 HDL Cholesterol 50 mg/dL (40-60) 03/12/24 05:33 Cholesterol/HDL Ratio 2.6 (0.0-5.0) 03/12/24 05:33 Specimen Type Catherized urine 03/11/24 12:37 Urine Color Yellow (YELLOW) 03/11/24 12:37 Urine Appearance Clear (CLEAR) 03/11/24 12:37 Urine pH 6.0 (5.0 - 8.0) 03/11/24 12:37 Ur Specific [place] 1.025 (1.000-1.030) 03/11/24 12:37 Urine Protein 2+ (NEGATIVE) 03/11/24 12:37 Urine Glucose (UA) Negative (NEGATIVE) 03/11/24 12:37 Urine Ketones Negative (NEGATIVE) 03/11/24 12:37 Urine Blood Negative (NEGATIVE) 03/11/24 12:37 Urine Nitrite Negative (NEGATIVE) 03/11/24 12:37 Urine Bilirubin Negative (NEGATIVE) 03/11/24 12:37 Urine Urobilinogen Normal (NORMAL) 03/11/24 12:37 Ur Leukocyte Esterase 1+ (NEGATIVE) 03/11/24 12:37 Urine RBC 0-2 /HPF (0-3) 03/11/24 12:37 Urine WBC 3-5 /HPF (0-5) 03/11/24 12:37 Ur Squamous Epith Cells Few /HPF (NEGATIVE) 03/11/24 12:37 Urine Bacteria Trace /HPF (NEGATIVE) 03/11/24 12:37 Urine Mucus Few /HPF (NEGATIVE) 03/11/24 12:37 Ur Culture Indicated? No/not indicated 03/11/24 12:37 Assessment/Plan (1) Syncopal episodes: (2) AMS (altered mental status): (3) Generalized weakness: (4) Primary hypertension: (5) Nodule of apex of right lun: Treatment per patient's group care worker at [facility] in [place], [place]. Hospital Course Hospital Course: Diagnostic Tests CT scan results from previous day indicated no acute intracranial abnormalities. Chest X-ray showed no acute cardiopulmonary changes and normal lung reed. Lab work indicated mild elevation in magnesium at 1.9 and stable glucose levels at 100. Urinalysis indicated 2 plus protein but no acute distress evidenced. Assessment and Plan Haily Bustillo condition and symptoms are likely attributed to episodes of syncope possibly related to her medication management and COPD. It is essential to evaluate for underlying cardiac issues given the episodes of sweating and altered mental status. Recommendations include follow-up with her bricklayer paving brick about her heart rhythm and monitoring her cardiovascular health closely due to the prior mention of an enlarged nodule and potential cardiac concerns. The urgency lies in ensuring her safety to prevent further episodes and conside rations for potential adjustments in her oxygen therapy management and heart rhythm monitoring. Discharge Medications Discharge Medications: Home Medication List docusate sodium 100 mg capsule 100 mg PO BID PRN 03/11/24 [History] Prescriptions: Discharge Disposition Discharge Disposition: Patient will be discharged home this morning stable condition. We will arrange for hospital follow-up with me in the nextCouple of weeks after . Her [id number] will be scheduling a follow-up appointment with her bricklayer paving brick as well for further investigation of her syncopal episode. Discharge Plan Discharge Plan Patient Disposition: 01 HOME, SELF-CARE Condition: Stable Health Concerns: Post Hospitalization: new medications and changes needed to prevent readmission or further decline. Pt educated and given instructions on all concerns. Care Plan Goals: Problem: Activity Intolerance Goal: Increased tolerance to activity Instructions: Follow provided instructions. Follow up with primary physician as directed. Contact primary care physician or report to the closest Emergency Room if condition worsens. Plan of Treatment: Continue with present treatment and follow up plan. Pt is to keep follow up appointment as instructed and take medications as ordered. Prescriptions: Continued carvedilol 25 mg tablet 25 mg PO BID Qty: 60 6RF ferrous gluconate 324 mg (38 mg iron) tablet 324 mg PO DAILYPC Qty: 90 0RF levothyroxine [Synthroid] 75 mcg tablet 75 mcg PO QDAY Qty: 90 3RF ezetimibe 10 mg tablet 10 mg PO QDAY Qty: 90 3RF eszopiclone 3 mg tablet 3 mg PO QPM MDD 1 per 24 Hours 30 Days Qty: 30 2RF losartan 100 mg tablet 100 mg PO QDAY Qty: 90 3RF desloratadine 5 mg tablet 5 mg PO QPM Qty: 30 2RF pantoprazole 40 mg tablet,delayed release (DR/EC) 40 mg PO Q12H Qty: 180 3RF famotidine 20 mg tablet 40 mg PO BID PRN (Reason: heartburn) Qty: 180 3RF ropinirole 2 mg tablet 2 mg PO QDAY Qty: 90 3RF baclofen 10 mg tablet 10 mg PO TID PRN (Reason: muscle spasm) Qty: 90 3RF magnesium oxide 400 mg magnesium tablet 400 mg PO BID Qty: 180 3RF atorvastatin 40 mg tablet 40 mg PO QDAY levetiracetam 500 mg tablet 500 mg PO BID hydrocodone-acetaminophen 5-325 mg tablet 1 tab PO BID gabapentin 400 mg capsule 800 mg PO QHS omeprazole 20 mg capsule,delayed release(DR/EC) 20 mg PO QDAY estradiol 0.01 % (0.1 mg/gram) cream 2 g vaginal QDAY albuterol sulfate 90 mcg/actuation HFA aerosol inhaler 1 inh INHALATION Q4HR duloxetine 60 mg capsule,delayed release(DR/EC) 60 mg PO QAM Eliquis 5 mg tablet 5 mg PO BID Trelegy Ellipta 200-62.5-25 mcg blister with device 1 ea INHALATION QDAY docusate sodium 100 mg capsule 100 mg PO BID PRN Orders to Discharge Patient Discharge Orders: Discharge (Routine); Ordered 03/12/24 Ordered By: Christiano Cantu Follow ups/Referrals Follow ups/Referrals: Christiano Cantu MD [Primary Care Provider] - 3 days Instructions Instructions: Weakness, [id number], Near-Syncope, [id number], Syncope, Adult, [id number] Stand Alone Forms: Post Hospital Follow Up Care
== END 2024-03-12 12:32 | disposition home or self-care (01) ==
LOC: MED/SURG 09:44 → ER 09:44 → MED/SURG 13:49
PROVIDERS: ADMIT Family Medicine; ATTEND Family Medicine
DX: I10 Essential (primary) hypertension; R55 Syncope and collapse; Z79.899 Other long term (current) drug therapy; E78.5 Hyperlipidemia, unspecified; R53.1 Weakness; Z79.01 Long term (current) use of anticoagulants; K21.9 Gastro-esophageal reflux disease without esophagitis; J44.9 Chronic obstructive pulmonary disease, unspecified; R91.1 Solitary pulmonary nodule; R41.82 Altered mental status, unspecified

== ENCOUNTER 2025-02-10 11:30 | Inpatient (IN) ==
--- NOTE | 2025-02-10 12:01 | DR.FEVERAD ---
HPI Time seen Time Seen by Provider: 02/10/25 11:45 PCP Primary Care Physician: Dhaval Mccray Complaints/Symptoms Chief Complaint Doctor Comments: Patient brought to ER by EMS due to fever and abscess in the groin. Patient states that she started having small boil on her pelvis about 3 days ago which has been worsening since then. Patient states yesterday it opened up and drained. Patient states she has had fevers up to 102 at home although today her fever is down. Chief Complaint:: Patient brought in via [facility] with the CC of "Fever" and "Abscess" to the groin. Patient stated that she had a spot come up approx three days ago to the inner right groin. Patient stated that yesterday the area opened up and started to drain on its own. Patient stated that last night she had a fever of 101.7 Source History Provided: Patient Mode of Arrival Mode of Arrival: EMS Timing Onset of Chief Complaint: 02/07/25 PMH PMH Past Medical History: Yes Past Medical History: Anemia, Arthritis, Asthma, COPD, CVA, Dyslipidemia, GERD, Hypertension, Hypothyroidism, Renal Disease and Seizures Past Medical History Comment: RLS, [place], Chronic Back Pain, Iron Deficiency, AFIB, Gastroenteritis, Gastroparesis, Nodule to Right [place] Lung, Nodule on Right side of the Thyroid, NC2L @ Home, Lung Cancer, Teofilo's, Left Side Weakness Past Surgical History: Yes Surgical History: Abdominal Surgery, Appendectomy, Hysterectomy and Other Family History History of Family Medical Conditions: Yes Family Medical History: Diabetes Mellitus, Cancer, [place], Heart Failure and Hypertension Social History Does patient currently use any type of tobacco product: No Have you used tobacco products in the last 12 months: No Type of Tobacco Use: None Does any household member use tobacco: No Alcohol Use: Rarely Do you use any recreational Drugs:: No Lives Where: Home Infectious screening In the last 2 months have you had wt loss of >10#?: NO Have you had fever, night sweats or hemotysis?: No Have you traveled outside the country in the last 6 months?: No Isolation: Standard ROS Review of Systems Constitutional: No Symptoms Reported Eyes: No Symptoms Reported ENTM: No Symptoms Reported Respiratoy: No Symptoms Reported Cardiovascular: No Symptoms Reported Gastrointestinal/Abdominal: No Symptoms Reported Genitourinary: No Symptoms Reported Neurological: No Symptoms Reported Musculoskeletal: No Symptoms Reported Integumentary: See HPI Hematologic/Lymphatic: No Symptoms Reported Endocrine: No Symptoms Reported Psychiatric: No Symptoms Reported All Other Systems: Reviewed and Negative PE Vital Signs Vitals: Vital Signs Temperature 98.9 F Pulse Rate 99 Pulse Rate 99 Pulse Rate 98 Pulse Rate 97 Pulse Rate 96 Pulse Rate 97 Pulse Rate 95 Pulse Rate 93 Pulse Rate 92 Pulse Rate 94 Pulse Rate 93 Pulse Rate 93 Pulse Rate 94 Pulse Rate 101 Respiratory Rate 20 Respiratory Rate 24 Respiratory Rate 22 Respiratory Rate 17 Respiratory Rate 21 Respiratory Rate 17 Respiratory Rate 16 Respiratory Rate 27 Respiratory Rate 24 Respiratory Rate 33 Respiratory Rate 18 Respiratory Rate 20 Respiratory Rate 20 Blood Pressure 95/65 Blood Pressure 98/53 Blood Pressure 136/63 Blood Pressure 125/59 Blood Pressure 136/63 O2 Sat by Pulse Oximetry 100 O2 Sat by Pulse Oximetry 99 O2 Sat by Pulse Oximetry 99 O2 Sat by Pulse Oximetry 100 O2 Sat by Pulse Oximetry 98 O2 Sat by Pulse Oximetry 97 O2 Sat by Pulse Oximetry 99 O2 Sat by Pulse Oximetry 100 General Limitations: No Limitations General Appearance: Alert and In No Apparent Distress Respiratory Respiratory Exam: Normal Lung Sounds Bilat Cardiovascular Cardiovascular Exam: Regular Rate and Normal Rhythm Abdominal Exam Abdominal Exam: Normal Inspection, Normal Bowel Sounds and Soft Extremities Extremities Exam: Normal Inspection Back Back Exam: Normal Inspection Neurologic Neurological Exam: Alert and Oriented X3 Psychiatric Psychiatric Exam: Normal Affect and Normal Mood Skin Skin Exam: Warm, Dry, Intact and Normal Color Type of Lesion: Abscess (Large area of abscess and phlegmon on suprapubic area extending down to labia majora on the right side of the groin.) COURSE Treatment Treatment: Cellulitis vs flegmon on groin. Discussed results of workup with patient and family. Consultation Called: 16:34 Consultation Comments: Discussed case with Dr. Cruz and he is agreeable with admission. Discussed case with Dr. Banda and he is agreeable with admission. ROR Labs Reviewed Laboratory Results Reviewed?: Yes 02/10/25 12:09 02/10/25 12:01 Laboratory: 02/10/25 12:34 Groin Wound Gram Stain - Final WBC 24.1 X10^3/uL (3.6-10.0) H 02/10/25 12:09 RBC 4.23 X10^6/uL (3.5-5.4) 02/10/25 12:09 Hgb 11.6 g/dL (12.0-16.0) L 02/10/25 12:09 Hct 36.4 % (36.0-47.0) 02/10/25 12:09 MCV 86.2 fL (80.0-100.0) 02/10/25 12:09 MCH 27.5 pg (27.0-34.0) 02/10/25 12:09 MCHC 31.9 g/dL (33.0-35.0) L 02/10/25 12:09 RDW 16.1 % (11.6-16.5) 02/10/25 12:09 Plt Count 227 X10^3/uL (150.0-450.0) 02/10/25 12:09 Plt Count Comment Adequate (ADEQUATE) 02/10/25 12:09 MPV 8.6 fL (7.4-11.0) 02/10/25 12:09 Neut % (Auto) 87.0 % (42.0-75.0) H 02/10/25 12:09 Lymph % (Auto) 3.4 % (21.0-51.0) L 02/10/25 12:09 [place] % (Auto) 8.6 % (0.0-13.0) 02/10/25 12:09 Eos % (Auto) 0.5 % (0.9-2.9) L 02/10/25 12:09 Baso % (Auto) 0.5 % (0.2-1.0) 02/10/25 12:09 Neut # (Auto) 20.9 x10^3/uL (2.2-4.8) H 02/10/25 12:09 Lymph # (Auto) 0.8 X10^3/uL (1.3-2.9) L 02/10/25 12:09 [place] # (Auto) 2.1 x10^3/uL (0.3-0.8) H 02/10/25 12:09 Eos # (Auto) 0.1 x10^3/uL (0.0-0.2) 02/10/25 12:09 Baso # (Auto) 0.1 X10^3/uL (0.0-0.1) 02/10/25 12:09 Absolute Nucleated RBC 0.0 /100WBC 02/10/25 12:09 Total Counted 100 02/10/25 12:09 Neutrophils % (Manual) 85 % (39-76) H 02/10/25 12:09 Band Neutrophils % 3 % (0-10) 02/10/25 12:09 Lymphocytes % (Manual) 6 % (13-43) L 02/10/25 12:09 Monocytes % (Manual) 6 % (4-9) 02/10/25 12:09 Plt Morphology Comment Normal (NORMAL) 02/10/25 12:09 RBC Morphology Normal (NORMAL) 02/10/25 12:09 Sodium 138 mmol/L (136-145) 02/10/25 12:01 Corrected Sodium TNP 02/10/25 12:01 Potassium 4.0 mmol/L (3.5-5.1) 02/10/25 12:01 Chloride 101 mmol/L (98-107) 02/10/25 12:01 Carbon Dioxide 29.3 mmol/L (21-32) 02/10/25 12:01 BUN 8 mg/dL (7-18) 02/10/25 12:01 Creatinine 0.80 mg/dL (0.55-1.02) 02/10/25 12:01 Est GFR (MDRD) Af Amer > 60 (>60) 02/10/25 12:01 Est GFR (MDRD) Non-Af > 60 (>60) 02/10/25 12:01 Glucose 109 mg/dL (65-99) H 02/10/25 12:01 Lactic Acid 1.2 mmol/L (0.4-2.0) 02/10/25 12:09 Calcium 9.2 mg/dL (8.5-10.1) 02/10/25 12:01 Corrected Calcium 9.9 mg/dL (8.5-10.1) 02/10/25 12:01 Total Bilirubin 0.60 mg/dL (0.2-1.0) 02/10/25 12:01 AST 13 Units/L (15-37) L 02/10/25 12:01 ALT 12 Units/L (12-78) 02/10/25 12:01 Alkaline Phosphatase 145 Units/L (46-116) H 02/10/25 12:01 Total Protein 6.9 g/dL (6.4-8.2) 02/10/25 12:01 Albumin 3.1 g/dL (3.4-5.0) L 02/10/25 12:01 Globulin 3.8 g/dL (2.5-4.5) 02/10/25 12:01 Albumin/Globulin Ratio 0.8 Ratio (1.1-2.1) L 02/10/25 12:01 Other Results Comments: [id number] 1950 Sex: F Location: ER Order Number(s): [id number] Procedure(s):PELVIS W/O CON CT Ordering Physician: Edin Hemphill Primary Care: Dhaval Mccray Service Date: 02/10/25 Service Time: 1145 EXAM: CT PELVIS WITHOUT CONTRAST HISTORY: LABIA ABCESS; COMPARISON: None. TECHNIQUE: Axial CT images were obtained through the pelvis without administration of IV contrast. GI contrast was not administered. Coronal and sagittal reformatted images were included. All CT scans at this facility use dose modulation, iterative reconstruction, and/or weight based dosing when appropriate to reduce radiation dose to as low as reasonably achievable. FINDINGS: Technical note: This study is limited without IV contrast. Subcutaneous soft tissue edema and stranding of the right labia and right mons pubis. There is no evidence on this noncontrast study of an organized fluid collection or abscess and there is no evidence for soft tissue gas. Urinary bladder is unremarkable. Status post hysterectomy. No free fluid in the pelvis. Portions of the GI tract that were imaged are unremarkable. No evidence of adenopathy. Atherosclerotic calcifications are noted. No inguinal hernia. No evidence for acute osseous findings. Bilateral femoral head AVN. No evidence for loss of the normal spherical shape of the femoral heads. Degenerative changes of the imaged portions of the lower lumbar spine. IMPRESSION: The study is limited without the use of IV contrast. Right labia and right mons pubis soft tissue edema versus cellulitis, correlate clinically. No obvious evidence for abscess formation on this noncontrast study. No evidence for soft tissue gas. Status post hysterectomy. Bilateral femoral head AVN. Degenerative changes of the spine. THIS IS AN ELECTRONICALLY VERIFIED FINAL REPORT 02/10/2025 4:00 PM - Electronically signed by Fredo Deem, DO Opioid Opioid Risk Tool Age (Marquez box if 16-45): No History of Preadolescent Sexual Abuse: No Total: 0 Total Score Risk Category: Low Risk Copyright: Isaac MICHAEL predicting aberrant behaviors Discharge Plan Diagnosis Discharge Problem: Cellulitis of groin, right Discharge Plan Patient Disposition: 09 ADMITTED INPATIENT Condition: Stable Prescriptions: No Action levothyroxine [Synthroid] 75 mcg tablet 75 mcg PO QDAY Qty: 90 3RF desloratadine 5 mg tablet 5 mg PO QPM Qty: 30 2RF pantoprazole 40 mg tablet,delayed release (DR/EC) 40 mg PO Q12H Qty: 180 3RF atorvastatin 40 mg tablet 40 mg PO QDAY gabapentin 400 mg capsule 800 mg PO QHS omeprazole 20 mg capsule,delayed release(DR/EC) 20 mg PO QDAY Eliquis 5 mg tablet 5 mg PO BID carvedilol 3.125 mg tablet 3.125 mg PO BID montelukast 10 mg tablet 10 mg PO QDAY levetiracetam 500 mg tablet 500 mg PO BID famotidine 40 mg tablet 40 mg PO BID fluoxetine 10 mg capsule 10 mg PO QDAY losartan 100 mg tablet 100 mg PO QDAY ezetimibe 10 mg tablet 10 mg PO QDAY Linzess 145 mcg capsule 145 mcg PO QDAY Health Concerns: Post Hospitalization: new medications and changes needed to prevent readmission or further decline. Pt educated and given instructions on all concerns. Plan of Treatment: Continue with present treatment and follow up plan. Pt is to keep follow up appointment as instructed and take medications as ordered. Orders to Discharge Patient Discharge Orders: Transfer (Routine); Ordered 02/10/25 Ordered By: Edin Hemphill Follow ups/Referrals Follow ups/Referrals: DHAVAL MCCRAY [Primary Care Provider, MEDICAL] - 3 days Instructions Stand Alone Forms: Find Help Web Site, Post Hospital Follow Up Care Print Language: OCCITAN
[2025-02-10 12:25] LABS: MEAN PLATELET VOLUME 8.6 fL (7.4-11.0); RED CELL DISTRIBUTION WIDTH 16.1 % (11.6-16.5)
[2025-02-10 12:39] LABS: COR CA(FOR HYPOALB) 9.9 mg/dL (8.5-10.1); CREATININE 0.80 mg/dL (0.55-1.02); eGFR NON BLACK RACES > 60 (>60)
[2025-02-10 12:55] LABS: BAND NEUTROPHILS % 3 % (0-10); PLATELET MORPHOLOGY COMMENT NORMAL (NORMAL)
[2025-02-10] MEDS: VANCOMYCIN IV *PREMIX 1 G/200 ML BAG 1 G/200 ML PIGGYBACK IV ONE ×2 (13:19→17:14)
[2025-02-10] MEDS: ZOSYN VIAL 3.375 GRAMS 3.375 G in NS 100 ML IV 100 ML IV ONE (13:51)
--- NOTE | 2025-02-10 16:03 | CT ---
EXAM: CT PELVIS WITHOUT CONTRAST HISTORY: LABIA ABCESS; COMPARISON: None. TECHNIQUE: Axial CT images were obtained through the pelvis without administration of IV contrast. GI contrast was not administered. Coronal and sagittal reformatted images were included. All CT scans at this facility use dose modulation, iterative reconstruction, and/or weight based dosing when appropriate to reduce radiation dose to as low as reasonably achievable. FINDINGS: Technical note: This study is limited without IV contrast. Subcutaneous soft tissue edema and stranding of the right labia and right mons pubis. There is no evidence on this noncontrast study of an organized fluid collection or abscess and there is no evidence for soft tissue gas. Urinary bladder is unremarkable. Status post hysterectomy. No free fluid in the pelvis. Portions of the GI tract that were imaged are unremarkable. No evidence of adenopathy. Atherosclerotic calcifications are noted. No inguinal hernia. No evidence for acute osseous findings. Bilateral femoral head AVN. No evidence for loss of the normal spherical shape of the femoral heads. Degenerative changes of the imaged portions of the lower lumbar spine. IMPRESSION: The study is limited without the use of IV contrast. Right labia and right mons pubis soft tissue edema versus cellulitis, correlate clinically. No obvious evidence for abscess formation on this noncontrast study. No evidence for soft tissue gas. Status post hysterectomy. Bilateral femoral head AVN. Degenerative changes of the spine. THIS IS AN ELECTRONICALLY VERIFIED FINAL REPORT 02/10/2025 4:00 PM - Electronically signed by Fredo Ibrahim DO
[2025-02-10] MEDS ORDERED: KETAMINE HCL ONE (16:47)
[2025-02-10] MEDS ORDERED: TYLENOL 325 MG TAB PO PRN (17:07)
[2025-02-10] MEDS: NS 100 ML IV 100 ML ONE (17:14)
[2025-02-10] MEDS: ZOSYN VIAL 3.375 GRAMS IV ONE (17:14)
[2025-02-10] MEDS: ZOSYN VIAL 3.375 GRAMS 3.375 G in NS 100 ML IV 100 ML IV SCH (17:15)
[2025-02-10] MEDS: PHARMACY CONSULT - VANCOMYCIN XX SCH (17:15)
[2025-02-10] MEDS: CONSULT PHARMACY - POTASSIUM & MAGNESIUM XX SCH (17:15)
[2025-02-10 18:32] VITALS: BMI 26.2
[2025-02-10] MEDS: NORCO 5/325 MG TAB PO PRN (18:39)
[2025-02-10] MEDS: COLACE CAP 100 MG PO SCH (20:20)
[2025-02-10] MEDS: KEPPRA TAB 500 MG PO SCH (20:20)
[2025-02-10] MEDS: PEPCID TAB 40 MG PO SCH (20:20)
[2025-02-10] MEDS: NEURONTIN CAP 400 MG PO SCH (20:21)
[2025-02-10] MEDS: CLARITIN PO SCH (20:21)
[2025-02-10] MEDS: VANCOMYCIN IV *PREMIX 750 mg/150 ML BAG 750 MG/150 ML PIGGYBACK IV SCH (20:21)
[2025-02-10] MEDS: ELIQUIS PO SCH (20:21)
[2025-02-10] MEDS: REQUIP PO SCH (22:05)
[2025-02-10] MEDS: LIORESAL PO SCH (22:05)
[2025-02-11] MEDS: COREG TAB 3.125 MG PO SCH (00:39)
[2025-02-11] MEDS: REQUIP PO ONE (00:45)
[2025-02-11 06:12] LABS: MEAN PLATELET VOLUME 9.3 fL (7.4-11.0); RED CELL DISTRIBUTION WIDTH 16.2 % (11.6-16.5)
[2025-02-11 06:22] LABS: ERYTHROCYTE SEDIMENTATION RATE 57 MM/HOUR (0-20)
[2025-02-11 06:27] LABS: COR CA(FOR HYPOALB) 10.0 mg/dL (8.5-10.1); CREATININE 0.75 mg/dL (0.55-1.02); eGFR NON BLACK RACES > 60 (>60)
--- NOTE | 2025-02-11 08:33 | DR.H&P ---
H&P History & Physical for Day of: H&P Date: 02/10/25 Chief Complaint Chief Complaint: fever and boil to groin History of Present Illness History of Present Illness: Patient is a 74 WF, pt of Dr. Cruz, brought to ER by EMS due to fever and abscess in the groin. Patient states that she started having small boil on her pelvis about 3 days ago which has been worsening since then. Patient states yesterday it opened up and drained. Patient states she has had fevers up to 102 at home although today her fever is down. Pt has PMH of lung ca, afib, htn, oa and chronic resp failure with copd. Past Medical History Past Medical History: Anemia, Arthritis, Asthma, COPD, CVA, Dyslipidemia, GERD, Hypertension, Hypothyroidism, Renal Disease and Seizures Additional Medical History: PE Past Surgical History Surgical History: Abdominal Surgery, Appendectomy, Hysterectomy and Other Family History Family Medical History: Diabetes Mellitus, Cancer, [place], Heart Failure and Hypertension Social History Does patient currently use any type of tobacco product: No Have you used tobacco products in the last 12 months: No Type of Tobacco Use: Cigarettes How many years tobacco product used: 50 Does any household member use tobacco: No Alcohol Use: None Drug Use: None Medications Home Medications: Home Medications Medication Instructions Recorded Confirmed Type apixaban 5 mg tablet (Eliquis) 5 mg PO BID 08/20/23 History atorvastatin 40 mg tablet 40 mg PO QDAY 08/20/2302/10 History gabapentin 400 mg capsule 800 mg PO QHS 08/20/2302/10 History omeprazole 20 mg capsule,delayed 20 mg PO QDAY 4 02/10/25 History release baclofen 10 mg tablet 10 mg PO BID 02/10/25 History carvedilol 3.125 mg tablet 3.125 mg PO BID 02/10/25 History ezetimibe 10 mg tablet 10 mg PO QDAY 02/10/2502/10 History famotidine 40 mg tablet 40 mg PO BID 02/10/25 History fluoxetine 10 mg capsule 10 mg PO QDAY 02/10/2502/10 History levetiracetam 500 mg tablet 500 mg PO BID 02/10/25 History linaclotide 145 mcg capsule 145 mcg PO QDAY 02/10/25 1 History (Linzess) losartan 100 mg tablet 100 mg PO QDAY 02/10/2501/23 History montelukast 10 mg tablet 10 mg PO QDAY 02/10/2502/10 History ropinirole 2 mg tablet 2 mg PO QPM 02/10/25 5 History Allergies Allergies Allergy/AdvReac Type Severity Reaction Status Date / Time sulfacetamide Allergy Unknown Verified 02/10/25 11:45 Sulfa (Sulfonamide Allergy Verified 02/10/25 11:45 Antibiotics) (SULFA) Labs 02/11/25 05:24 02/11/25 05:24 Labs: 02/10/25 12:34 Groin Wound Gram Stain - Final Laboratory WBC 19.1 X10^3/uL (3.6-10.0) H 02/11/25 05:24 RBC 3.55 X10^6/uL (3.5-5.4) 02/11/25 05:24 Hgb 9.9 g/dL (12.0-16.0) L 02/11/25 05:24 Hct 30.4 % (36.0-47.0) L 02/11/25 05:24 MCV 85.8 fL (80.0-100.0) 02/11/25 05:24 MCH 28.0 pg (27.0-34.0) 02/11/25 05:24 MCHC 32.7 g/dL (33.0-35.0) L 02/11/25 05:24 RDW 16.2 % (11.6-16.5) 02/11/25 05:24 Plt Count 229 X10^3/uL (150.0-450.0) 02/11/25 05:24 Plt Count Comment Adequate (ADEQUATE) 02/10/25 12:09 MPV 9.3 fL (7.4-11.0) 02/11/25 05:24 Neut % (Auto) 82.8 % (42.0-75.0) H 02/11/25 05:24 Lymph % (Auto) 6.1 % (21.0-51.0) L 02/11/25 05:24 [place] % (Auto) 9.1 % (0.0-13.0) 02/11/25 05:24 Eos % (Auto) 1.4 % (0.9-2.9) 02/11/25 05:24 Baso % (Auto) 0.6 % (0.2-1.0) 02/11/25 05:24 Neut # (Auto) 15.8 x10^3/uL (2.2-4.8) H 02/11/25 05:24 Lymph # (Auto) 1.2 X10^3/uL (1.3-2.9) L 02/11/25 05:24 [place] # (Auto) 1.7 x10^3/uL (0.3-0.8) H 02/11/25 05:24 Eos # (Auto) 0.3 x10^3/uL (0.0-0.2) H 02/11/25 05:24 Baso # (Auto) 0.1 X10^3/uL (0.0-0.1) 02/11/25 05:24 Absolute Nucleated RBC 0.0 /100WBC 02/11/25 05:24 Total Counted 100 02/10/25 12:09 Neutrophils % (Manual) 85 % (39-76) H 02/10/25 12:09 Band Neutrophils % 3 % (0-10) 02/10/25 12:09 Lymphocytes % (Manual) 6 % (13-43) L 02/10/25 12:09 Monocytes % (Manual) 6 % (4-9) 02/10/25 12:09 Plt Morphology Comment Normal (NORMAL) 02/10/25 12:09 RBC Morphology Normal (NORMAL) 02/10/25 12:09 ESR 57 MM/HOUR (0-20) H 02/11/25 05:24 Sodium 138 mmol/L (136-145) 02/11/25 05:24 Corrected Sodium TNP 02/11/25 05:24 Potassium 3.9 mmol/L (3.5-5.1) 02/11/25 05:24 Chloride 103 mmol/L (98-107) 02/11/25 05:24 Carbon Dioxide 29.8 mmol/L (21-32) 02/11/25 05:24 BUN 10 mg/dL (7-18) 02/11/25 05:24 Creatinine 0.75 mg/dL (0.55-1.02) 02/11/25 05:24 Est GFR (MDRD) Af Amer > 60 (>60) 02/11/25 05:24 Est GFR (MDRD) Non-Af > 60 (>60) 02/11/25 05:24 Glucose 106 mg/dL (65-99) H 02/11/25 05:24 Lactic Acid 1.2 mmol/L (0.4-2.0) 02/10/25 12:09 Calcium 8.7 mg/dL (8.5-10.1) 02/11/25 05:24 Corrected Calcium 10.0 mg/dL (8.5-10.1) 02/11/25 05:24 Total Bilirubin 0.60 mg/dL (0.2-1.0) 02/11/25 05:24 AST 18 Units/L (15-37) 02/11/25 05:24 ALT 8 Units/L (12-78) L 02/11/25 05:24 Alkaline Phosphatase 134 Units/L (46-116) H 02/11/25 05:24 Total Protein 6.0 g/dL (6.4-8.2) L 02/11/25 05:24 Albumin 2.4 g/dL (3.4-5.0) L 02/11/25 05:24 Globulin 3.6 g/dL (2.5-4.5) 02/11/25 05:24 Albumin/Globulin Ratio 0.7 Ratio (1.1-2.1) L 02/11/25 05:24 Review of Systems Constitutional: Fever and Chills Eyes: No Symptoms Reported ENT: No Symptoms Reported Respiratory: SOB with Excertion Cardiovascular: No Symptoms Reported Gastrointestinal: Nausea Genitourinary: No Symptoms Reported Musculoskeletal: Other (pelvic pain) Skin: Wound Neurological: No Symptoms Reported Physical Exam Vital Signs: Vital Signs Temperature 97.9 F Pulse Rate [Right] 96 Respiratory Rate 18 Blood Pressure [Right Arm] 110/55 O2 Sat by Pulse Oximetry 98 Oriented: Normal Eyes: Normal Ear: Normal Nose: Normal Throat: Normal Respiratory: Diminished Throughout Cardiovascular: Normal (controlled rate); negative Edema Auscultation: Bowel Sounds: Normal Palpation: Normal Tenderness: negative Suprapubic Skin: Red, Tender and Wound Musculoskeletal: Back:Lumbar, Tender and Motor Deficit Psychiatric: Anxiety Mood Description: Anxious Speech Pattern: Clear and Appropriate Assessment/Plan (1) Cellulitis of groin, right: Status: Acute Plan: blood and wound culture on admission ct pelvis obtained in the ER, IV atbx, pain control verify and resume home medications, bp control supplemental o2 (2) Primary hypertension: Status: Acute (3) Chronic respiratory failure: Status: Acute (4) COPD (chronic obstructive pulmonary disease): Status: Acute (5) CVA (cerebral vascular accident): Qualifiers: CVA mechanism: unspecified Qualified Code(s): I63.9 - Cerebral infarction, unspecified Narrative Support Text: follow up with her established ortho Status: Chronic (6) AVN (avascular necrosis of bone): Status: Acute
[2025-02-11] MEDS: LINZESS PO SCH (09:01)
[2025-02-11] MEDS: ZETIA TAB 10 MG PO SCH (09:01)
[2025-02-11] MEDS: LIPITOR TAB 40 MG PO SCH (09:01)
[2025-02-11] MEDS: SINGULAIR TAB 10 MG PO SCH (09:03)
[2025-02-11] MEDS: COZAAR PO SCH (09:55)
--- NOTE | 2025-02-11 13:15 | DR.PROGNOT ---
HOSPITAL PROGRESS NOTE Progress Note for Day of: Progress Note Date: 02/11/25 Chief Complaint Chief Complaint: Still complaining of pain on swallowing right groin extending to the pubic area and vagina. Mild bloody drainage awaiting culture report. There is an area of induration without fluctuation, CAT scan did not show any abscess formation. Patient is afebrile but her white count is still elevated 19.1 with hemoglobin 9.9. Past Medical Family Social History Allergies: Allergies sulfacetamide Allergy (Unknown, Verified 02/10/25 11:45) Reason: Drug allergy Sulfa (Sulfonamide Antibiotics) (SULFA) Allergy (Verified 02/10/25 11:45) Review Of Systems ROS: No change since H&P Vital Signs Vital Signs: Vital Signs Temperature 98.4 F Temperature 99.8 F Temperature 98.2 F Temperature 98.2 F Pulse Rate [Right] 104 Pulse Rate [Right] 107 Pulse Rate [Right] 107 Respiratory Rate 19 Respiratory Rate 19 Respiratory Rate 19 Blood Pressure [Right Arm] 119/56 Blood Pressure [Right Arm] 114/57 Blood Pressure [Right Arm] 114/57 O2 Sat by Pulse Oximetry 96 O2 Sat by Pulse Oximetry 96 O2 Sat by Pulse Oximetry 96 Physical Exam Oriented: Normal Eyes: Normal Ear: Normal Nose: Normal Throat: Normal Cardiovascular: Normal (controlled rate); negative Edema GI:Auscultation: Normal GI:Palpation: Normal GI: Tenderness: negative Suprapubic Skin: Red, Tender, Wound and Other (Induration and erythema involving the medial aspect of the right groin extending into the vagina with a small 1 x 1 cm ulcer) Musculoskeletal: Back:Lumbar, Tender and Motor Deficit Psychiatric: Anxiety Mood Description: Anxious Speech Pattern: Clear and Appropriate Laboratory and Diagnostics 02/11/25 05:24 02/11/25 05:24 Labs: 02/10/25 12:34 Groin Wound Gram Stain - Final 02/10/25 12:34 Groin Wound Culture - Preliminary Laboratory WBC 19.1 X10^3/uL (3.6-10.0) H 02/11/25 05:24 RBC 3.55 X10^6/uL (3.5-5.4) 02/11/25 05:24 Hgb 9.9 g/dL (12.0-16.0) L 02/11/25 05:24 Hct 30.4 % (36.0-47.0) L 02/11/25 05:24 MCV 85.8 fL (80.0-100.0) 02/11/25 05:24 MCH 28.0 pg (27.0-34.0) 02/11/25 05:24 MCHC 32.7 g/dL (33.0-35.0) L 02/11/25 05:24 RDW 16.2 % (11.6-16.5) 02/11/25 05:24 Plt Count 229 X10^3/uL (150.0-450.0) 02/11/25 05:24 Plt Count Comment Adequate (ADEQUATE) 02/10/25 12:09 MPV 9.3 fL (7.4-11.0) 02/11/25 05:24 Neut % (Auto) 82.8 % (42.0-75.0) H 02/11/25 05:24 Lymph % (Auto) 6.1 % (21.0-51.0) L 02/11/25 05:24 [place] % (Auto) 9.1 % (0.0-13.0) 02/11/25 05:24 Eos % (Auto) 1.4 % (0.9-2.9) 02/11/25 05:24 Baso % (Auto) 0.6 % (0.2-1.0) 02/11/25 05:24 Neut # (Auto) 15.8 x10^3/uL (2.2-4.8) H 02/11/25 05:24 Lymph # (Auto) 1.2 X10^3/uL (1.3-2.9) L 02/11/25 05:24 [place] # (Auto) 1.7 x10^3/uL (0.3-0.8) H 02/11/25 05:24 Eos # (Auto) 0.3 x10^3/uL (0.0-0.2) H 02/11/25 05:24 Baso # (Auto) 0.1 X10^3/uL (0.0-0.1) 02/11/25 05:24 Absolute Nucleated RBC 0.0 /100WBC 02/11/25 05:24 Total Counted 100 02/10/25 12:09 Neutrophils % (Manual) 85 % (39-76) H 02/10/25 12:09 Band Neutrophils % 3 % (0-10) 02/10/25 12:09 Lymphocytes % (Manual) 6 % (13-43) L 02/10/25 12:09 Monocytes % (Manual) 6 % (4-9) 02/10/25 12:09 Plt Morphology Comment Normal (NORMAL) 02/10/25 12:09 RBC Morphology Normal (NORMAL) 02/10/25 12:09 ESR 57 MM/HOUR (0-20) H 02/11/25 05:24 Sodium 138 mmol/L (136-145) 02/11/25 05:24 Corrected Sodium TNP 02/11/25 05:24 Potassium 3.9 mmol/L (3.5-5.1) 02/11/25 05:24 Chloride 103 mmol/L (98-107) 02/11/25 05:24 Carbon Dioxide 29.8 mmol/L (21-32) 02/11/25 05:24 BUN 10 mg/dL (7-18) 02/11/25 05:24 Creatinine 0.75 mg/dL (0.55-1.02) 02/11/25 05:24 Est GFR (MDRD) Af Amer > 60 (>60) 02/11/25 05:24 Est GFR (MDRD) Non-Af > 60 (>60) 02/11/25 05:24 Glucose 106 mg/dL (65-99) H 02/11/25 05:24 Lactic Acid 1.2 mmol/L (0.4-2.0) 02/10/25 12:09 Calcium 8.7 mg/dL (8.5-10.1) 02/11/25 05:24 Corrected Calcium 10.0 mg/dL (8.5-10.1) 02/11/25 05:24 Total Bilirubin 0.60 mg/dL (0.2-1.0) 02/11/25 05:24 AST 18 Units/L (15-37) 02/11/25 05:24 ALT 8 Units/L (12-78) L 02/11/25 05:24 Alkaline Phosphatase 134 Units/L (46-116) H 02/11/25 05:24 Total Protein 6.0 g/dL (6.4-8.2) L 02/11/25 05:24 Albumin 2.4 g/dL (3.4-5.0) L 02/11/25 05:24 Globulin 3.6 g/dL (2.5-4.5) 02/11/25 05:24 Albumin/Globulin Ratio 0.7 Ratio (1.1-2.1) L 02/11/25 05:24 Assessment and Plan 1: Cellulitis right groin extending into the vagina with a small ulceration. Patient is on IV vancomycin and Zosyn pending final culture report. Problem Patient Problems: Patient Problems Cellulitis of groin, right (Acute) L03.314
[2025-02-11] MEDS: NS 250 ML IV 25 ML IV PRN (20:09)
[2025-02-11] MEDS: ULTRAM PO PRN (20:10)
[2025-02-12 06:40] LABS: MEAN PLATELET VOLUME 9.1 fL (7.4-11.0); RED CELL DISTRIBUTION WIDTH 15.8 % (11.6-16.5)
[2025-02-12 06:57] LABS: COR CA(FOR HYPOALB) 10.1 mg/dL (8.5-10.1); CREATININE 0.62 mg/dL (0.55-1.02); eGFR NON BLACK RACES > 60 (>60)
[2025-02-12] MEDS: PHARMACY COMMENT IV SCH (09:19)
--- NOTE | 2025-02-12 10:55 | DR.PROGNOT ---
HOSPITAL PROGRESS NOTE Progress Note for Day of: Progress Note Date: 02/12/25 Chief Complaint Chief Complaint: Drainage from right groin and upper thigh abscess is less, still complaining of pain with associated induration of the skin. White count is still elevated up to 15.6 with shift to the left, alkaline phosphatase is slightly elevated 136, hemoglobin 9.8 and albumin 2.2. Skin culture is showing staph aureus sensitive to vancomycin. Patient complaining of being weak with generalized ache. Patient is afebrile and examination revealed edema with erythema involving the right groin, the pubic area and right side of the vaginal wall. Past Medical Family Social History Past Med/Fam/Surg Hx: No changes since H&P Allergies: Allergies sulfacetamide Allergy (Unknown, Verified 02/10/25 11:45) Reason: Drug allergy Sulfa (Sulfonamide Antibiotics) (SULFA) Allergy (Verified 02/10/25 11:45) Review Of Systems ROS: No change since H&P Vital Signs Vital Signs: Vital Signs Temperature 98.1 F Temperature 98.6 F Pulse Rate [Right] 88 Pulse Rate [Right] 87 Respiratory Rate 18 Respiratory Rate 18 Blood Pressure [Right Arm] 134/64 Blood Pressure [Right Arm] 119/57 O2 Sat by Pulse Oximetry 96 O2 Sat by Pulse Oximetry 97 Physical Exam Oriented: Normal Eyes: Normal Ear: Normal Nose: Normal Throat: Normal Cardiovascular: Normal (controlled rate); negative Edema GI:Auscultation: Normal GI:Palpation: Normal GI: Tenderness: negative Suprapubic Skin: Red, Tender, Wound and Other (Induration and erythema involving the medial aspect of the right groin extending into the vagina with a small 1 x 1 cm ulcer) Musculoskeletal: Back:Lumbar, Tender and Motor Deficit Psychiatric: Anxiety Mood Description: Anxious Speech Pattern: Clear and Appropriate Laboratory and Diagnostics 02/12/25 05:18 02/12/25 05:18 Labs: 02/10/25 12:34 Groin Wound Gram Stain - Final 02/10/25 12:34 Groin Wound Culture - Preliminary Staphylococcus Aureus Laboratory WBC 15.6 X10^3/uL (3.6-10.0) H 02/12/25 05:18 RBC 3.50 X10^6/uL (3.5-5.4) 02/12/25 05:18 Hgb 9.8 g/dL (12.0-16.0) L 02/12/25 05:18 Hct 30.0 % (36.0-47.0) L 02/12/25 05:18 MCV 85.6 fL (80.0-100.0) 02/12/25 05:18 MCH 27.9 pg (27.0-34.0) 02/12/25 05:18 MCHC 32.6 g/dL (33.0-35.0) L 02/12/25 05:18 RDW 15.8 % (11.6-16.5) 02/12/25 05:18 Plt Count 210 X10^3/uL (150.0-450.0) 02/12/25 05:18 Plt Count Comment Adequate (ADEQUATE) 02/10/25 12:09 MPV 9.1 fL (7.4-11.0) 02/12/25 05:18 Neut % (Auto) 81.6 % (42.0-75.0) H 02/12/25 05:18 Lymph % (Auto) 7.1 % (21.0-51.0) L 02/12/25 05:18 [place] % (Auto) 9.3 % (0.0-13.0) 02/12/25 05:18 Eos % (Auto) 1.5 % (0.9-2.9) 02/12/25 05:18 Baso % (Auto) 0.5 % (0.2-1.0) 02/12/25 05:18 Neut # (Auto) 12.7 x10^3/uL (2.2-4.8) H 02/12/25 05:18 Lymph # (Auto) 1.1 X10^3/uL (1.3-2.9) L 02/12/25 05:18 [place] # (Auto) 1.5 x10^3/uL (0.3-0.8) H 02/12/25 05:18 Eos # (Auto) 0.2 x10^3/uL (0.0-0.2) 02/12/25 05:18 Baso # (Auto) 0.1 X10^3/uL (0.0-0.1) 02/12/25 05:18 Absolute Nucleated RBC 0.1 /100WBC 02/12/25 05:18 Total Counted 100 02/10/25 12:09 Neutrophils % (Manual) 85 % (39-76) H 02/10/25 12:09 Band Neutrophils % 3 % (0-10) 02/10/25 12:09 Lymphocytes % (Manual) 6 % (13-43) L 02/10/25 12:09 Monocytes % (Manual) 6 % (4-9) 02/10/25 12:09 Plt Morphology Comment Normal (NORMAL) 02/10/25 12:09 RBC Morphology Normal (NORMAL) 02/10/25 12:09 ESR 57 MM/HOUR (0-20) H 02/11/25 05:24 Sodium 142 mmol/L (136-145) 02/12/25 05:18 Corrected Sodium TNP 02/12/25 05:18 Potassium 3.8 mmol/L (3.5-5.1) 02/12/25 05:18 Chloride 104 mmol/L (98-107) 02/12/25 05:18 Carbon Dioxide 29.0 mmol/L (21-32) 02/12/25 05:18 BUN 9 mg/dL (7-18) 02/12/25 05:18 Creatinine 0.62 mg/dL (0.55-1.02) 02/12/25 05:18 Est GFR (MDRD) Af Amer > 60 (>60) 02/12/25 05:18 Est GFR (MDRD) Non-Af > 60 (>60) 02/12/25 05:18 Glucose 101 mg/dL (65-99) H 02/12/25 05:18 Lactic Acid 1.2 mmol/L (0.4-2.0) 02/10/25 12:09 Calcium 8.7 mg/dL (8.5-10.1) 02/12/25 05:18 Corrected Calcium 10.1 mg/dL (8.5-10.1) 02/12/25 05:18 Total Bilirubin 0.40 mg/dL (0.2-1.0) 02/12/25 05:18 AST 12 Units/L (15-37) L 02/12/25 05:18 ALT 10 Units/L (12-78) L 02/12/25 05:18 Alkaline Phosphatase 136 Units/L (46-116) H 02/12/25 05:18 Total Protein 5.9 g/dL (6.4-8.2) L 02/12/25 05:18 Albumin 2.2 g/dL (3.4-5.0) L 02/12/25 05:18 Globulin 3.7 g/dL (2.5-4.5) 02/12/25 05:18 Albumin/Globulin Ratio 0.6 Ratio (1.1-2.1) L 02/12/25 05:18 Assessment and Plan 1: Cellulitis right groin extending into the vagina with a small ulceration. Patient is on IV vancomycin and Zosyn pending final culture report. Ultrasound of the right groin and pubic area looking for abscess formation. 2: Arthritis ,chronic pain and confinement to bed. Physical therapy and pain control. Problem Patient Problems: Patient Problems Cellulitis of groin, right (Acute) L03.314
--- NOTE | 2025-02-12 12:25 | RAD ---
EXAM: CHEST, 1 VIEW HISTORY: copd; COMPARISON: No relevant prior studies were available for comparison at the time of interpretation. TECHNIQUE: CHEST, 1 VIEW FINDINGS: Chest: Lines and tubes: Cardiac leads overlie the chest. Mediastinum: Cardiac and mediastinal shadow is within normal limits for size and contour. Pulmonary vessels: No pulmonary vascular congestion. Lung reed: No suspicious airspace opacity. Pleura: No effusion. No pneumothorax. Bones and soft tissues: No acute osseous or soft tissue abnormality. IMPRESSION: 1. No acute cardiopulmonary abnormality THIS IS AN ELECTRONICALLY VERIFIED FINAL REPORT 02/12/2025 12:22 PM - Electronically signed by Fredo Rubio MD
--- NOTE | 2025-02-12 13:29 | US ---
EXAM: EXTREMITY SONOGRAM HISTORY: SWOLLEN PUBIC AREA R/O ABSCESS; COMPARISON: CT pelvis 02/10/2025 TECHNIQUE: 39 images made by the noc engineer. Suresh scale and color-flow images of the right pubic soft tissues were obtained. FINDINGS: The region of interest was demonstrated by the patient. There is an abnormality in the region of interest. It measures 2.9 x 2.1 x 1.7 cm. It has irregular margins interspersed between the fat lobules of the subcutaneous tissue. Mostly hypoechoic but mixed echogenicity and increased peripheral vascularity seen by color imaging. Finding likely represents an abscess. IMPRESSION: 1. Findings most consistent with an abscess THIS IS AN ELECTRONICALLY VERIFIED FINAL REPORT 02/12/2025 1:19 PM - Electronically signed by Cedrick Shah MD
[2025-02-12] MEDS: VANCOMYCIN IV *PREMIX 750 mg/150 ML BAG 750 MG/150 ML PIGGYBACK IV SCH (14:46)
[2025-02-12] MEDS: ZOFRAN INJ 4 MG VIAL IVP PRN (14:54)
[2025-02-13] MEDS ORDERED: HIBICLENS WASH ONE (03:51)
[2025-02-13] MEDS: HIBICLENS WASH EXT ONE (05:01)
[2025-02-13 05:41] LABS: MEAN PLATELET VOLUME 8.5 fL (7.4-11.0); RED CELL DISTRIBUTION WIDTH 16.3 % (11.6-16.5)
[2025-02-13 05:53] LABS: COR CA(FOR HYPOALB) 10.0 mg/dL (8.5-10.1); CREATININE 0.75 mg/dL (0.55-1.02); eGFR NON BLACK RACES > 60 (>60)
[2025-02-13 12:36] VITALS: RESP 18
[2025-02-13] MEDS: NS 1,000 ML IV 200 ML IV PRN (13:00)
[2025-02-13] MEDS: NS 1,000 ML IV 1,000 ML ONE (13:14)
[2025-02-13] MEDS: VERSED ONE (13:16)
[2025-02-13] MEDS: MARCAINE/EPINEPHRINE ONE (13:17)
[2025-02-13] MEDS: DIPRIVAN VIAL 20 ML ONE (13:18)
[2025-02-13] MEDS: BETADINE SOLN ONE (13:19)
[2025-02-13] MEDS: VERSED IVP PRN (13:27)
[2025-02-13] MEDS: DIPRIVAN VIAL 40 ML IVP PRN (13:28)
[2025-02-13] MEDS: KETAMINE HCL IV PRN (13:31)
[2025-02-13 15:31] LABS: CREATININE 0.6 mg/dL (0.55-1.02)
[2025-02-13] MEDS: PHARMACY COMMENT IV ONE (16:16)
[2025-02-13] MEDS: ELIQUIS PO SCH (22:21)
[2025-02-14 06:00] LABS: MEAN PLATELET VOLUME 8.7 fL (7.4-11.0); RED CELL DISTRIBUTION WIDTH 16.0 % (11.6-16.5)
[2025-02-14 06:21] LABS: COR CA(FOR HYPOALB) 10.1 mg/dL (8.5-10.1); CREATININE 0.65 mg/dL (0.55-1.02); eGFR NON BLACK RACES > 60 (>60)
[2025-02-14] MEDS ORDERED: CONSULT PHARMACY - POTASSIUM & MAGNESIUM XX SCH (07:00)
[2025-02-14 08:14] VITALS: BP 149/65; TEMP 98.4
[2025-02-14 09:25] VITALS: PULSE 94; O2SAT 96
[2025-02-14] MEDS: MAG-OX TAB PO SCH (09:37)
[2025-02-14] MEDS: K-DUR TAB 20 MEQ PO SCH (09:38)
--- NOTE | 2025-02-14 10:57 | RAD ---
EXAM: CHEST, 1 VIEW HISTORY: sob; COMPARISON: 02/12/2025 r.br.br.br.br.br.br.br silhouette. Aortic arch atherosclerotic calcifications. Chronic right apical scarring. No new areas of consolidation. No large pleural effusion or visible pneumothorax. IMPRESSION: No acute cardiopulmonary findings. THIS IS AN ELECTRONICALLY VERIFIED FINAL REPORT 02/14/2025 10:54 AM - Electronically signed by Christiano Parr MD
== END 2025-02-14 10:44 | disposition swing bed (61) | DRG 603 ==
LOC: ER 11:30 → MED/SURG 16:47
PROVIDERS: ADMIT Internal Medicine; ATTEND Internal Medicine
DX: M87.051 Idiopathic aseptic necrosis of right femur; M19.90 Unspecified osteoarthritis, unspecified site; J96.10 Chronic respiratory failure, unspecified whether with hypoxia or hypercapnia; Z16.29 Resistance to other single specified antibiotic; K21.9 Gastro-esophageal reflux disease without esophagitis; R26.89 Other abnormalities of gait and mobility; R13.12 Dysphagia, oropharyngeal phase; E03.8 Other specified hypothyroidism; M87.052 Idiopathic aseptic necrosis of left femur; Z79.01 Long term (current) use of anticoagulants; E83.42 Hypomagnesemia; R53.1 Weakness; E78.5 Hyperlipidemia, unspecified; B95.61 Methicillin susceptible Staphylococcus aureus infection as the cause of diseases classified elsewhere; J44.9 Chronic obstructive pulmonary disease, unspecified; Z86.73 Personal history of transient ischemic attack (TIA), and cerebral infarction without residual deficits; N76.4 Abscess of vulva; L03.314 Cellulitis of groin; Z99.81 Dependence on supplemental oxygen; R70.0 Elevated erythrocyte sedimentation rate; I10 Essential (primary) hypertension; I48.20 Chronic atrial fibrillation, unspecified

== ENCOUNTER 2025-02-14 10:45 | Inpatient (IN) ==
[2025-02-14] MEDS ORDERED: NS 250 ML IV 25 ML IV PRN (11:49)
[2025-02-14] MEDS ORDERED: TYLENOL 325 MG TAB PO PRN (11:49)
--- NOTE | 2025-02-14 11:52 | PT/OTEVAL ---
PT/OT OBJECTIVES - HISTORY Prescription: OT Consult PMH: Anemia, Arthritis, Asthma, COPD, CVA, Dyslipidemia, GERD, Hypertension, Hypothyroidism, Renal Disease, Seizures, RLS, [place], Chronic Back Pain, Iron Deficiency, AFIB, Gastroenteritis, Gastroparesis, Nodule to Right [place] Lung, Nodule on Right side of the Thyroid, NC2L @ Home, Lung Cancer, Teofilo's, Left Side Weakness, B Hip AVN, Abdominal Surgery, Appendectomy, Hysterectomy Prior Level of Function: Independent Other: Per patient report & confirmed by family present in room- Pt lives with son and daughter in law in a 1 story home with 4 steps to enter with HR. Pt is (I) with ADLs and family A with IADLs. History of Present Illness: Pt is a 74 year old female who per documentation was brought to ER by EMS due to fever and abscess in the groin. Patient states that she started having small boil on her pelvis about 3 days ago which has been worsening since then. Patient stated it opened up and drained. Patient states she has had fevers up to 102 at home although her fever is down when she came in. She was admitted for pelvic and perineal area abscess which is localized to her right labia. She transitioned to swingbed for IV abts and rehab for pt to be safely d/c. - COGNITION Mental Status: Alert, Oriented, Name, Date, Place, Purpose Communication Status: Verbal Ability to Follow Directions: 2 Step Memory Loss: None Affect: Calm - PAIN No signs of pain Pain Scale: No Pain Comments: No reports of pain at time of evaluation. Left Leg Pain Scale: Mild Comments: "It always hurts" - TRANSFERS Sit to Stand: Minimal Sit or Stand Pivot: Minimal Toileting: Moderate Toileting comment: Needed A with back side Safety (requires cues for:): Hand Placement Precaution - ADL'S Upper Body ADL: Supervision Toileting: Maximum - BALANCE Static Sitting: Good Standing: Fair Dynamic Sitting: Good Standing: Poor - NEUROMOTOR/SENSATION Left Lower Ext Sensation: Impaired Coordination: Impaired Right Lower Ext Sensation: WFL Coordination: WFL Lucas. Lower Ext Sensation: WFL Coordination: WFL Lucas. Upper Ext Sensation: WFL Coordination: WFL - ROM Right UE ROM: WFL Left UE ROM: WFL - STRENGTH Left LE Strength Number: 3 Other comment: Hx CVA with deficits at PLOF Right LE Strength Number: 4 Other comment: 4-/5 grossly graded Right UE Strength Number: 3 Other comment: 3+/5 Left UE Strength Number: 2 Other comment: 3/5 - GAIT Pt. ambulates how many feet?: 30 Amount of assistance required: Minimal Type of Assistive Device: Rolling Walker - TREATMENT Date: 02/14/25 Time: 10:45 Treatment Type: Evaluation Treatment Provided: Other - TOTAL TREATMENT TIME Total Time: 60 - POST ASSESSMENT Post Assessment Comment: Pt was seen for skilled OT to assess CLOF. Pt was able to provide PLOF and hx and agreeable to participate. Pt was using the commode upon arrival. Pt was given mod A for hygiene. and max A for donning breif. Pt STS with min A. Pt completed several transfers with min A. Sitting EOB completing UB dressing with min A. Pt functionally AMB in room with RW ~ 3x. with seated RBs for fatigue. Pt wanted to get back in the bed. Pt had all needs met and call light within reach. Pt demonstrates deficits with ADLs and ADL functional mobility. Pt would benefit from skilled OT services to address ADL deficits to facilitate highest level of ADL function needed for safe d/c planning. - EXIT DISPOSITION Exit Position: BED Call light in reach: Yes PT/OT ASSESSMENT - OT Problem List: Decreased Mobility ADL's, Decreased Dressing, Decreased Bathing, Decreased UE Strength - OT GOALS Provider Engagement Executive Goals Days: 20 Mobility for ADL's: Pt to improve functional ADL transfers to mod (I) Dressing: Pt to improve LB dressing to (I) Bathing: Pt to improve overall bathing to (I) Upper Ext. Strength/Use: Pt to improve MMT in BUE by 1 grade Other: Pt will retrieve clothing and other ADL items with mod (I) Short Term Goals Days: 10 Mobility for ADL's: Pt to improve functional ADL transfers to set up A and LRAD Dressing: Pt to improve UB dressing to (I) Bathing: Pt to improve overall bathing to set up A Other: Pt to improve FAT to G - PATIENT GOALS Patient/Family Goals: To feel better Rehabilitation Potential: Good to meet stated goals Justification for Potential: To facilitate highest level of ADL function needed for safe d/c planning Weakness and Barriers: None - PLAN Suggested Treatment Plan: Therapeutic Activity, Self Care Training, Neuro Re- education, Therapeutic Ex with HEP, Patient Education - FREQUENCY AND DURATION OT: 5x a week x 20 days Expected Continuation of Care at Discharge: Determined on Progress
--- NOTE | 2025-02-14 12:28 | DR.PROGNOT ---
HOSPITAL PROGRESS NOTE Progress Note for Day of: Progress Note Date: 02/14/25 Chief Complaint Chief Complaint: Patient is status post debridement and drainage of right groin and pubic abscess. Patient is doing fairly well, alert and cooperative, she is having mild drainage from the incision site. Past Medical Family Social History Allergies: Allergies sulfacetamide Allergy (Unknown, Verified 02/10/25 11:45) Reason: Drug allergy Sulfa (Sulfonamide Antibiotics) (SULFA) Allergy (Verified 02/10/25 11:45) Vital Signs Vital Signs: Vital Signs Blood Pressure [Left Arm] 149/65 Physical Exam Oriented: Normal Eyes: Normal Ear: Normal Nose: Normal Throat: Normal Respiratory: Normal Cardiovascular: Normal Skin: Other (Erythema and edema of the pubic area and right groin is subsiding slowly.) Speech Pattern: Clear and Appropriate Assessment and Plan 1: Skin cellulitis of the pubic area extending to the genitalia, status post I&D. Awaiting final culture report. Same IV antibiotics and local care, to change her dressing daily.
--- NOTE | 2025-02-14 13:45 | PT/OTEVAL ---
PT/OT OBJECTIVES - HISTORY Prescription: PT Consult Diagnosis: Cellulitis of Groin Precautions: Fall Risk, Hx CVA with L Residual Deficit PMH: Anemia, Arthritis, Asthma, COPD, CVA, Dyslipidemia, GERD, Hypertension, Hypothyroidism, Renal Disease, Seizures, RLS, [place], Chronic Back Pain, Iron Deficiency, AFIB, Gastroenteritis, Gastroparesis, Nodule to Right [place] Lung, Nodule on Right side of the Thyroid, NC2L @ Home, Lung Cancer, Teofilo's, Left Side Weakness, B Hip AVN, Abdominal Surgery, Appendectomy, Hysterectomy Prior Level of Function: Independent Other: Per patient report & confirmed by family present in room- she resides with son and daughter in law in single story home with 4 steps to enter with HR. PLOF: Independent with mobility tasks within the home with rollator. Family completes household tasks. History of Present Illness: Pt is a 74 year old female who was brought to ER by EMS due to fever and abscess in the groin on 02/10/2025. Pt was admitted for further care and underwent I&D on 02/13/2025. Due to recent sickness, pt has had a decline in overall strength and mobility and due to requiring continued care pt was transitioned to swing bed program on 02/14/2025. - COGNITION Mental Status: Alert, Oriented, Name, Date, Place, Purpose Communication Status: Verbal Ability to Follow Directions: 2 Step - PAIN Left Leg Pain Scale: Discomfort Comments: "It always hurts" - BED MOBILITY Rolling: Supervision - TRANSFERS Supine to Sit: Minimal Sit to Stand: Minimal Sit or Stand Pivot: Minimal Safety (requires cues for:): Hand Placement Precaution - BALANCE Static Sitting: Good Standing: Fair Balance Comment: Fair- Dynamic Sitting: Good Standing: Poor Balance Comment: Poor+ - NEUROMOTOR/SENSATION Left Lower Ext Sensation: Impaired Coordination: Impaired Proprioception: Impaired Comments: Hx CVA Right Lower Ext Sensation: WFL Coordination: WFL Proprioception: WFL - HAND DOMINANCE Extremity Function: Hand Dominance: Right - ROM Left LE ROM: Impaired Muscle Tone: Impaired Comment: Hx CVA; increase in tone. Lacking ankle DF Right LE ROM: WFL Muscle Tone: WFL - STRENGTH Left LE Strength Number: 3 Other comment: Hx CVA with deficits at PLOF; 3-/5 to hip and knee; 1/5 to ankle Right LE Strength Number: 3 Other comment: 3+/5 - GAIT Pt. ambulates how many feet?: 30 Amount of Assistance Required: Minimal Type of Assistive Device: Rolling Walker - TREATMENT Date: 02/14/25 Time: 11:00 Treatment Type: Evaluation Treatment Provided: Gait, Therapeutic Activities - TOTAL TREATMENT TIME Total Time: 45 - POST ASSESSMENT Post Assessment Comment: Pt was found supine in bed in room and agreeable to participation in PT services. Pt reports that she is feeling better today after procedure but continues with weakness. Pt able to perform bed mobility tasks and functional transfers with min assist- cues for hand placement and sequencing. Pt ambulated this date with FWW and min assist. Pt has to use hip hike to LLE to advance LE due to previous CVA. Pt reports that she has tried numerous braces over the years but cannot tolerate any of them. Pt on 2LO2 via NC throughout. Pt easily fatigues and requires frequent therapeutic rest breaks. Discussion of PT POC and goals with pt and family. Pt with good motivation for participation and would benefit from continued PT services to address deficits and facilitate highest level of function and safe discharge planning. - EXIT DISPOSITION Exit Position: BED Call light in reach: Yes Comments: Family present in room. PT/OT ASSESSMENT - PT Problem List: Decreased Bed Mobility, Decreased Transfers, Decreased Gait, Decreased Balance, Decreased LE Strength - PT GOALS Short Term Goals Days: 10 Mobility: Pt will perform bed mobility tasks with supervision Transfers: Pt will perform functional transfers with supervision Gait: Pt will ambulate 100ft with FWW with touch assist Balance: Pt will increase static standing balance to good Polytechnic Teacher Goals Days: 20 Mobility: Pt will perform bed mobility tasks with mod I Transfers: Pt will perform functional transfers with mod I Gait: Pt will ambulate 250ft with rollator and mod I Balance: Pt will increase dynamic standing balance to fair ROM/Strength: Pt will increase BLE strength by 1 MMT grade Others: Pt will ascend/descend 4 stairs with HR and supervision - OT GOALS Retirement Goals Days: 20 Mobility for ADL's: Pt to improve functional ADL transfers to mod (I) Dressing: Pt to improve LB dressing to (I) Bathing: Pt to improve overall bathing to (I) Upper Ext. Strength/Use: Pt to improve MMT in BUE by 1 grade Other: Pt will retrieve clothing and other ADL items with mod (I) Short Term Goals Days: 10 Mobility for ADL's: Pt to improve functional ADL transfers to set up A and LRAD Dressing: Pt to improve UB dressing to (I) Bathing: Pt to improve overall bathing to set up A Other: Pt to improve FAT to G - PATIENT GOALS Patient/Family Goals: "I just want to get my strength back so I can go home" Goals Discussed with Patient/Family: Yes Rehabilitation Potential: Good to meet stated goals Justification for Potential: Facilitate highest level of function and safe adela munoz planning Weakness and Barriers: None - PLAN Suggested Treatment Plan: Bed Mobility Training, Therapeutic Activity, Gait Training, Neuro Re-education, Therapeutic Ex with HEP, Patient Education, Family Education - FREQUENCY AND DURATION PT: 5x per week x 20 days Expected Continuation of Care at Discharge: Home Health
[2025-02-14] MEDS: VANCOMYCIN IV *PREMIX 750 mg/150 ML BAG 750 MG/150 ML PIGGYBACK IV SCH (13:58)
[2025-02-14] MEDS: NORCO 5/325 MG TAB PO PRN (14:01)
[2025-02-14] MEDS: ZOSYN VIAL 3.375 GRAMS 3.375 G in NS 100 ML IV 100 ML IV SCH (14:30)
[2025-02-14 17:40] VITALS: BMI 26.9
[2025-02-14] MEDS ORDERED: ROPINIROLE 2 MG PO SCH (21:00)
[2025-02-14] MEDS: NEURONTIN CAP 400 MG PO SCH (21:02)
[2025-02-14] MEDS: KEPPRA TAB 500 MG PO SCH (21:03)
[2025-02-14] MEDS: REQUIP PO SCH (21:03)
[2025-02-14] MEDS: ELIQUIS PO SCH (21:03)
[2025-02-14] MEDS: COLACE CAP 100 MG PO SCH (21:03)
[2025-02-14] MEDS: CLARITIN PO SCH (21:03)
[2025-02-14] MEDS: LIORESAL PO SCH (21:04)
[2025-02-14] MEDS: PEPCID TAB 40 MG PO SCH (21:04)
[2025-02-15] MEDS ORDERED: LIORESAL PO SCH (09:00)
[2025-02-15] MEDS: ZETIA TAB 10 MG PO SCH (09:31)
[2025-02-15] MEDS: SINGULAIR TAB 10 MG PO SCH (09:31)
[2025-02-15] MEDS: LIPITOR TAB 40 MG PO SCH (09:36)
[2025-02-15] MEDS: LINZESS PO SCH (09:37)
[2025-02-15] MEDS: ZOFRAN INJ 4 MG VIAL IVP PRN (18:41)
[2025-02-16] MEDS: NS 250 ML IV 25 ML IV PRN (08:43)
[2025-02-17 05:04] LABS: COR CA(FOR HYPOALB) 9.6 mg/dL (8.5-10.1); CREATININE 0.71 mg/dL (0.55-1.02); eGFR NON BLACK RACES > 60 (>60)
[2025-02-17 05:09] LABS: MEAN PLATELET VOLUME 8.5 fL (7.4-11.0); RED CELL DISTRIBUTION WIDTH 16.2 % (11.6-16.5)
[2025-02-17] MEDS ORDERED: CONSULT PHARMACY - POTASSIUM & MAGNESIUM XX SCH (07:00)
[2025-02-17] MEDS: MAG-OX TAB PO SCH (08:55)
[2025-02-17] MEDS: COZAAR PO SCH (10:02)
[2025-02-17] MEDS: TORADOL 15 MG VIAL IVP ONE (10:03)
[2025-02-17] MEDS: OMNIPAQUE 350 mg/mL 100 mL BTL IVP NR (10:37)
--- NOTE | 2025-02-17 11:43 | CT ---
EXAM: CT ABDOMEN AND PELVIS WITH CONTRAST HISTORY: S/P RIGHT LABIAL ABCESS I/D , R/O BONE INVOLEMENT; COMPARISON: CT dated 02/10/2025 and 09/30/2023. TECHNIQUE: Axial CT images were obtained through the abdomen and pelvis after the intravenous administration of contrast. Coronal and sagittal reformatted images were included. Informed written consent was obtained prior to contrast administration. All CT scans at this facility use dose modulation, iterative reconstruction, and/or weight based dosing when appropriate to reduce radiation dose to as low as reasonably achievable. FINDINGS: Mild right labial skin thickening and subcutaneous edema is decreased from comparison CT. No soft tissue gas or evidence of fluid collection. No underlying pubic osseous cortical destruction or aggressive periosteal reaction. Mild pubic symphysis osteoarthritis. Moderate bilateral hip osteoarthritis with chronic femoral head osteonecrosis. Moderate lumbar spondylosis. Bibasilar scarring/atelectasis. Small hiatal hernia. Unremarkable liver, gallbladder, spleen, pancreas, and adrenals. Stable small simple right renal cyst. No biliary dilatation. Moderate aortoiliac atherosclerosis without aneurysm. No abnormally distended or focally thickened bowel loops. Moderate colonic stool burden. No free peritoneal air or fluid. Unremarkable urinary bladder. Absent uterus. No free pelvic fluid. IMPRESSION: Right labial skin thickening with underlying cellulitis, decreased from comparison. No evidence of abscess or underlying osseous involvement. THIS IS AN ELECTRONICALLY VERIFIED FINAL REPORT 02/17/2025 11:39 AM - Electronically signed by Christiano Parr MD
[2025-02-17 14:17] LABS: CREATININE 1.01 mg/dL (0.55-1.02)
[2025-02-17] MEDS: PHARMACY COMMENT IV ONE (16:02)
[2025-02-18] MEDS: OMNIPAQUE 350 mg/mL 100 mL BTL 100 ML ONE (06:13)
[2025-02-18 13:53] LABS: CREATININE 0.98 mg/dL (0.55-1.02)
[2025-02-18] MEDS ORDERED: CONSULT PHARMACY - POTASSIUM & MAGNESIUM XX SCH (18:00)
[2025-02-18] MEDS: MAG-OX TAB PO SCH (20:03)
--- NOTE | 2025-02-18 23:28 | EKG ---
Test Reason : Hypertension Protocol Blood Pressure : */* mmHG Vent. Rate : 76 BPM Atrial Rate : 76 BPM P-R Int : 136 ms QRS Dur : 72 ms QT Int : 394 ms P-R-T Axes : 58 -26 72 degrees QTc Int : 443 ms Normal sinus rhythm Nonspecific T wave abnormality Abnormal ECG When compared with ECG of 11-MAR-2024 10:46, Nonspecific T wave abnormality now evident in Lateral leads Confirmed by Kishor Estrada MD ([id number]) on 02/19/2025 6:36:53 AM Referred By: Confirmed By: Kishor Estrada MD
[2025-02-18] MEDS: CATAPRES TAB 0.1 MG PO ONE (23:39)
[2025-02-19 06:12] LABS: MEAN PLATELET VOLUME 8.5 fL (7.4-11.0); RED CELL DISTRIBUTION WIDTH 15.7 % (11.6-16.5)
[2025-02-19 06:25] LABS: COR CA(FOR HYPOALB) 9.8 mg/dL (8.5-10.1); CREATININE 0.75 mg/dL (0.55-1.02); eGFR NON BLACK RACES > 60 (>60)
[2025-02-19] MEDS: ULTRAM PO PRN (10:50)
[2025-02-19] MEDS: COREG TAB 3.125 MG PO SCH (10:53)
[2025-02-19 14:17] LABS: CREATININE 0.87 mg/dL (0.55-1.02)
[2025-02-19] MEDS: DIFLUCAN PO SCH (16:22)
[2025-02-19] MEDS: PHARMACY COMMENT IV ONE (22:00)
[2025-02-19 22:13] LABS: CREATININE 1.1 mg/dL (0.55-1.02)
[2025-02-20] MEDS: VANCOMYCIN IV *PREMIX 750 mg/150 ML BAG 750 MG/150 ML PIGGYBACK IV SCH ×2 (05:33→22:49)
[2025-02-20 21:31] LABS: CREATININE 0.96 mg/dL (0.55-1.02)
--- NOTE | 2025-02-20 21:45 | EKG ---
Test Reason : Per Hypertension Protocol Blood Pressure : */* mmHG Vent. Rate : 79 BPM Atrial Rate : 79 BPM P-R Int : 140 ms QRS Dur : 72 ms QT Int : 422 ms P-R-T Axes : 70 -36 91 degrees QTc Int : 483 ms Normal sinus rhythm Left axis deviation Abnormal QRS-T angle, consider primary T wave abnormality Abnormal ECG When compared with ECG of 18-FEB-2025 23:25, No significant change was found Confirmed by Kishor Estrada MD ([id number]) on 02/21/2025 7:54:34 AM Referred By: Confirmed By: Kishor Estrada MD
[2025-02-20] MEDS: CATAPRES TAB 0.1 MG PO ONE (22:11)
[2025-02-20] MEDS: VANCOMYCIN HCL 1 G in D5W 250 ML IV 250 ML IV SCH (22:25)
[2025-02-21 06:21] LABS: MEAN PLATELET VOLUME 8.7 fL (7.4-11.0); RED CELL DISTRIBUTION WIDTH 16.2 % (11.6-16.5)
[2025-02-21 06:39] LABS: COR CA(FOR HYPOALB) 9.7 mg/dL (8.5-10.1); CREATININE 0.73 mg/dL (0.55-1.02); eGFR NON BLACK RACES > 60 (>60)
--- NOTE | 2025-02-21 14:04 | RAD ---
EXAM: ANKLE, LEFT HISTORY: B/L ANKLE PAIN AND EDEMA; COMPARISON: None. TECHNIQUE: 3 views FINDINGS: No acute fracture or dislocation. Osteopenia. Symmetric ankle mortise. Intact talar dome. No large ankle effusion. Diffuse subcutaneous edema. IMPRESSION: No acute osseous findings. THIS IS AN ELECTRONICALLY VERIFIED FINAL REPORT 02/21/2025 2:00 PM - Electronically signed by Christiano Parr MD
--- NOTE | 2025-02-21 14:04 | RAD ---
EXAM: ANKLE, RIGHT HISTORY: B/L ANKLE PAIN AND EDEMA; COMPARISON: None. TECHNIQUE: 3 views FINDINGS: No acute fracture or dislocation. Intact lateral malleolus fixation plate/screws. Medial malleolus fixation screws are intact. Symmetric ankle mortise. Intact talar dome. No significant ankle effusion. Mild hindfoot osteoarthritis. IMPRESSION: No acute osseous findings. THIS IS AN ELECTRONICALLY VERIFIED FINAL REPORT 02/21/2025 2:01 PM - Electronically signed by Christiano Parr MD
[2025-02-21] MEDS: MICONAZOLE 7 CRM VG SCH (20:11)
[2025-02-21] MEDS: PHARMACY COMMENT IV ONE (20:19)
[2025-02-21 20:58] LABS: CREATININE 0.92 mg/dL (0.55-1.02)
--- NOTE | 2025-02-22 10:52 | PCM.PROG ---
Progress Note Progress Note for Day of Date of Exam: 02/22/25 Subjective Subjective: Patient is a 74-year-old female admitted after having an I&D on a labial abscess and cellulitis. She is currently swing bed status receiving IV antibiotics. This morning she is resting comfortably in bed. No acute events overnight. Labs/imaging: WBC 9.2, hemoglobin 10, platelets 218, sodium 145, potassium 4.0, creatinine 0.73, glucose 100. Patient will continue with IV antibiotics. She did have some swelling in her ankles and had x-rays that was negative for any acute findings. Otherwise continue with current treatment plan. Continue closely monitor and follow-up labs/imaging. Past Medical Family Social History Allergies: Allergies sulfacetamide Allergy (Unknown, Verified 02/10/25 11:45) Reason: Drug allergy Sulfa (Sulfonamide Antibiotics) (SULFA) Allergy (Verified 02/10/25 11:45) Review of Systems ROS changes noted: see HPI Vital Signs and I&O's Vital Signs: Vital Signs Temperature 98.4 F Pulse Rate [Left Radial] 83 Respiratory Rate 17 Respiratory Rate 17 Respiratory Rate 18 Blood Pressure [Right Arm] 138/65 Blood Pressure [Left Arm] 163/72 O2 Sat by Pulse Oximetry 96 Intake and Output: Intake & Output 02/19/25 02/20/25 02/21/25 02/22/25 23:59 23:59 23:59 23:59 Intake Total 1614 / 1614 2591 / 2591 2190 / 2190 0 / 0 Balance 1614 / 1614 2591 / 2591 2190 / 2190 0 / 0 Physical Exam Oriented: Normal Eyes: Normal Ear: Normal Nose: Normal Throat: Normal Respiratory: Normal Cardiovascular: Normal Speech Pattern: Clear and Appropriate Laboratory and Diagnostics 02/21/25 05:40 02/21/25 20:14 Labs: Laboratory WBC 9.2 X10^3/uL (3.6-10.0) 02/21/25 05:40 RBC 3.56 X10^6/uL (3.5-5.4) 02/21/25 05:40 Hgb 10.0 g/dL (12.0-16.0) L 02/21/25 05:40 Hct 30.4 % (36.0-47.0) L 02/21/25 05:40 MCV 85.4 fL (80.0-100.0) 02/21/25 05:40 MCH 28.2 pg (27.0-34.0) 02/21/25 05:40 MCHC 33.1 g/dL (33.0-35.0) 02/21/25 05:40 RDW 16.2 % (11.6-16.5) 02/21/25 05:40 Plt Count 218 X10^3/uL (150.0-450.0) 02/21/25 05:40 MPV 8.7 fL (7.4-11.0) 02/21/25 05:40 Neut % (Auto) 73.6 % (42.0-75.0) 02/21/25 05:40 Lymph % (Auto) 15.0 % (21.0-51.0) L 02/21/25 05:40 Bremer % (Auto) 8.3 % (0.0-13.0) 02/21/25 05:40 Eos % (Auto) 2.3 % (0.9-2.9) 02/21/25 05:40 Baso % (Auto) 0.8 % (0.2-1.0) 02/21/25 05:40 Neut # (Auto) 6.8 x10^3/uL (2.2-4.8) H 02/21/25 05:40 Lymph # (Auto) 1.4 X10^3/uL (1.3-2.9) 02/21/25 05:40 Bremer # (Auto) 0.8 x10^3/uL (0.3-0.8) 02/21/25 05:40 Eos # (Auto) 0.2 x10^3/uL (0.0-0.2) 02/21/25 05:40 Baso # (Auto) 0.1 X10^3/uL (0.0-0.1) 02/21/25 05:40 Absolute Nucleated RBC 0.2 /100WBC 02/21/25 05:40 Sodium 145 mmol/L (136-145) 02/21/25 05:40 Corrected Sodium TNP 02/21/25 05:40 Potassium 4.0 mmol/L (3.5-5.1) 02/21/25 05:40 Chloride 107 mmol/L (98-107) 02/21/25 05:40 Carbon Dioxide 33.0 mmol/L (21-32) H 02/21/25 05:40 BUN 8 mg/dL (7-18) 02/21/25 05:40 Creatinine 0.92 mg/dL (0.55-1.02) 02/21/25 20:14 Est GFR (MDRD) Af Amer > 60 (>60) 02/21/25 05:40 Est GFR (MDRD) Non-Af > 60 (>60) 02/21/25 05:40 Glucose 100 mg/dL (65-99) H 02/21/25 05:40 POC Glucose (mg/dL) 114 mg/dL (65-99) H 02/18/25 20:20 Uric Acid 3.6 mg/dL (2.6-6.0) 02/21/25 05:40 Calcium 8.6 mg/dL (8.5-10.1) 02/21/25 05:40 Corrected Calcium 9.7 mg/dL (8.5-10.1) 02/21/25 05:40 Magnesium 1.9 mg/dL (2.0-2.9) L 02/17/25 04:27 Total Bilirubin 0.20 mg/dL (0.2-1.0) 02/21/25 05:40 AST 12 Units/L (15-37) L 02/21/25 05:40 ALT 16 Units/L (12-78) 02/21/25 05:40 Alkaline Phosphatase 110 Units/L (46-116) 02/21/25 05:40 Total Protein 6.1 g/dL (6.4-8.2) L 02/21/25 05:40 Albumin 2.6 g/dL (3.4-5.0) L 02/21/25 05:40 Globulin 3.5 g/dL (2.5-4.5) 02/21/25 05:40 Albumin/Globulin Ratio 0.7 Ratio (1.1-2.1) L 02/21/25 05:40 Vancomycin Trough 17.0 ug/mL (15-20) 02/21/25 20:14 Random Vancomycin 16.7 ug/mL 02/15/25 14:23 Plan (1) Labial abscess: Status: Acute (2) Cellulitis of groin, right: Status: Acute
[2025-02-23] MEDS ORDERED: NS 250 ML IV 250 ML IV ONE (08:22)
[2025-02-23 19:47] LABS: BLOOD/HEMOGLOBIN,URINE NEGATIVE (NEGATIVE); LEUKOCYTE ESTERASE ,URINE NEGATIVE (NEGATIVE); NITRITES,URINE NEGATIVE (NEGATIVE)
[2025-02-23 19:48] LABS: APPEARANCE,URINE CLEAR (CLEAR)
[2025-02-24 05:02] LABS: CREATININE 0.89 mg/dL (0.55-1.02); MEAN PLATELET VOLUME 9.4 fL (7.4-11.0); RED CELL DISTRIBUTION WIDTH 16.5 % (11.6-16.5); eGFR NON BLACK RACES > 60 (>60)
[2025-02-24] MEDS: LASIX IVP ONE (09:05)
[2025-02-24 20:15] VITALS: RESP 19
[2025-02-24] MEDS: VANCOMYCIN IV *PREMIX 1 G/200 ML BAG 1 G/200 ML PIGGYBACK IV NR (20:15)
[2025-02-24 20:50] VITALS: PULSE 82
--- NOTE | 2025-02-25 04:01 | RAD ---
PROCEDURE: Chest X-ray 2 Views. HISTORY: Dyspnea. TECHNIQUE: PA and lateral views. COMPARISON: 02/14/2025. TECHNICAL QUALITY: Satisfactory. FINDINGS: Normal size heart. Mediastinum and hilar regions show no masses or lymphadenopathy. Normal central vascularity. No pulmonary consolidation, masses, pleural fluid, or pneumothorax. No acute bony abnormality. IMPRESSION: No evidence of active cardiopulmonary disease. THIS IS AN ELECTRONICALLY VERIFIED FINAL REPORT 02/25/2025 3:57 AM - Electronically signed by Erik Longo MD
[2025-02-25 07:38] VITALS: BP 138/65; TEMP 98; O2SAT 97
--- NOTE | 2025-02-25 13:44 | RAD ---
EXAMINATION: CHEST, PA/LAT ADULT HISTORY: PNEUMONIA, SOB, POSSIBLE ASPIRATION ; . COMPARISON STUDY: 02/24/2025 TECHNIQUE: Two views of the chest are submitted for interpretation. FINDINGS: . The heart size is normal. The mediastinal structures are within normal limits. No acute infiltrates. Costophrenic recesses are sharp. There are degenerative changes in the thoracic spine. There is no pneumothorax. Previous ACDF. Atelectasis or scarring in the upper lobes. IMPRESSION: NO ACUTE PROCESS. THIS IS AN ELECTRONICALLY VERIFIED FINAL REPORT 02/25/2025 1:41 PM - Electronically signed by Radu Stone MD
[2025-02-25 18:33] LABS: COR CA(FOR HYPOALB) 9.7 mg/dL (8.5-10.1)
== END 2025-02-25 14:15 | disposition home or self-care (01) | DRG 603 ==
LOC: MED/SURG 10:45
PROVIDERS: ADMIT Internal Medicine; ATTEND Internal Medicine
DX: M87.051 Idiopathic aseptic necrosis of right femur; B95.61 Methicillin susceptible Staphylococcus aureus infection as the cause of diseases classified elsewhere; Z98.890 Other specified postprocedural states; Z16.29 Resistance to other single specified antibiotic; D64.89 Other specified anemias; M19.90 Unspecified osteoarthritis, unspecified site; M25.472 Effusion, left ankle; M87.052 Idiopathic aseptic necrosis of left femur; Z99.81 Dependence on supplemental oxygen; I10 Essential (primary) hypertension; I48.20 Chronic atrial fibrillation, unspecified; R53.1 Weakness; E83.51 Hypocalcemia; E83.42 Hypomagnesemia; N76.4 Abscess of vulva; Z79.01 Long term (current) use of anticoagulants; R26.89 Other abnormalities of gait and mobility; L03.314 Cellulitis of groin; Z51.89 Encounter for other specified aftercare; R94.31 Abnormal electrocardiogram [ECG] [EKG]; M25.471 Effusion, right ankle; J96.10 Chronic respiratory failure, unspecified whether with hypoxia or hypercapnia

== ENCOUNTER 2025-04-03 05:40 | Inpatient (IN) ==
--- NOTE | 2025-04-03 06:00 | EKG ---
Test Reason : sob,afib Blood Pressure : */* mmHG Vent. Rate : 135 BPM Atrial Rate : 135 BPM P-R Int : 120 ms QRS Dur : 64 ms QT Int : 292 ms P-R-T Axes : 87 -46 86 degrees QTc Int : 438 ms Sinus tachycardia Left axis deviation Pulmonary disease pattern Nonspecific ST abnormality Abnormal ECG When compared with ECG of 20-FEB-2025 21:42, Vent. rate has increased BY 56 BPM T wave inversion no longer evident in Anterior leads Confirmed by Kishor Estrada MD ([id number]) on 04/03/2025 7:04:42 AM Referred By: Confirmed By: Kishor Estrada MD
[2025-04-03] MEDS: NS 1,000 ML IV 1,000 ML IV ONE (06:09)
[2025-04-03] MEDS: ZOFRAN INJ 4 MG VIAL IVP ONE (06:09)
[2025-04-03 06:19] LABS: BLOOD/HEMOGLOBIN,URINE NEGATIVE (NEGATIVE); LEUKOCYTE ESTERASE ,URINE 1+ (NEGATIVE); NITRITES,URINE NEGATIVE (NEGATIVE)
[2025-04-03 06:23] LABS: ABG BASE EXCESS -6.7 mmol/L (-2.0-2.0); ABG PCO2 35.0 mmHg (35.0-45.0)
[2025-04-03 06:24] LABS: ABG HCO3 18.5 mmol/L (22-26)
[2025-04-03 06:25] LABS: ABG ALLEN TEST POS
[2025-04-03 06:35] LABS: APPEARANCE,URINE CLEAR (CLEAR); SQUAMOUS EPITHELIAL CELL,UR FEW /HPF (NEGATIVE)
[2025-04-03] MEDS: TYLENOL 500 MG TAB EXTRA STRENGTH PO ONE (07:31)
[2025-04-03] MEDS: VANCOMYCIN IV *PREMIX 1 G/200 ML BAG 1 G/200 ML PIGGYBACK IV SCH (07:32)
--- NOTE | 2025-04-03 07:53 | DR.SOBA ---
HPI <Rustam Mac - Last Filed: 04/03/25 08:01> Time Seen Time Seen by Provider: 04/03/25 05:58 Primary Care Physician Primary Care Physician: Ashley Mccray Complaints Chief Complaint Doctors Comments: 74 yo F, hx of lung cancer, last treatment 1y ago, recently hospitalized for vaginal abscess, d/c 2 wk ago. today, c/o increasing prod cough, dyspnea, fever and chills over the past 12-24h. Denies chest pain. Denies other complaints. Chief Complaint:: pt brung in via ems with complaints of sob, and severe bilateral rib pain, pt states started when she got up this morning to use the bathroom and it worsened. COVID-19 Coronavirus risk:travel/contact w/high risk person: No Has patient experienced Coronavirus symptoms: No Source History Provided: Patient Mode of Arrival Mode of Arrival: Stretcher Timing Onset of Chief Complaint: 04/03/25 PMH <Rustam Mac - Last Filed: 04/03/25 08:01> PMH Past Medical History: Yes Past Medical History: Anemia, Arthritis, Asthma, COPD, CVA, Dyslipidemia, GERD, Hypertension, Hypothyroidism, Renal Disease, Seizures and Cancer Past Medical History Comment: lung ca a-fib pulmonary embolus Past Surgical History: Yes Surgical History: Abdominal Surgery, Appendectomy, Hysterectomy and Other Family History History of Family Medical Conditions: Yes Family Medical History: Diabetes Mellitus, Cancer, [place], Heart Failure and Hypertension Social History Type of Tobacco Use: Cigarettes How many years tobacco product used: 50 Do you use any recreational Drugs:: No Travel Risk Coronavirus risk:travel/contact w/high risk person: No Has patient experienced Coronavirus symptoms: No Infectious screening Have you traveled outside the country in the last 6 months?: No Isolation: Standard ROS <Rustam Mac - Last Filed: 04/03/25 08:01> Review of Systems Constitutional: Chills and Fever Respiratoy: Productive Cough and Short of Breath Cardiovascular: negative Chest Pain All Other Systems: Reviewed and Negative PE <Rustam Mac Last Filed: 04/03/25 08:01> Vital Signs Vitals: Vital Signs Temperature 99.3 F Temperature 100.7 F Temperature 99.1 F Pulse Rate [Left Radial] 135 Pulse Rate 108 Pulse Rate 110 Pulse Rate 109 Pulse Rate 109 Pulse Rate 109 Pulse Rate 110 Pulse Rate 109 Pulse Rate 108 Pulse Rate 110 Pulse Rate 106 Pulse Rate 109 Pulse Rate 112 Pulse Rate 120 Pulse Rate 133 Pulse Rate 141 Pulse Rate 135 Pulse Rate 137 Pulse Rate 136 Pulse Rate 132 Pulse Rate 125 Pulse Rate 124 Pulse Rate 134 Pulse Rate 136 Pulse Rate 138 Pulse Rate 137 Pulse Rate 136 Respiratory Rate 17 Respiratory Rate 17 Respiratory Rate 16 Respiratory Rate 16 Respiratory Rate 19 Respiratory Rate 16 Respiratory Rate 17 Respiratory Rate 16 Respiratory Rate 16 Respiratory Rate 16 Respiratory Rate 17 Respiratory Rate 17 Respiratory Rate 16 Respiratory Rate 21 Respiratory Rate 19 Respiratory Rate 16 Respiratory Rate 19 Respiratory Rate 17 Respiratory Rate 18 Respiratory Rate 19 Respiratory Rate 18 Respiratory Rate 19 Respiratory Rate 21 Respiratory Rate 28 Respiratory Rate 28 Respiratory Rate 31 Respiratory Rate 32 Respiratory Rate 20 Blood Pressure [Right Arm] 147/71 Blood Pressure 132/68 Blood Pressure 133/64 Blood Pressure 130/72 Blood Pressure 130/78 Blood Pressure 133/64 Blood Pressure 133/64 Blood Pressure 147/71 Blood Pressure 176/81 Blood Pressure 153/75 Blood Pressure 167/81 O2 Sat by Pulse Oximetry 96 O2 Sat by Pulse Oximetry 97 O2 Sat by Pulse Oximetry 97 O2 Sat by Pulse Oximetry 99 O2 Sat by Pulse Oximetry 97 O2 Sat by Pulse Oximetry 97 O2 Sat by Pulse Oximetry 95 O2 Sat by Pulse Oximetry 97 O2 Sat by Pulse Oximetry 93 O2 Sat by Pulse Oximetry 90 O2 Sat by Pulse Oximetry 90 O2 Sat by Pulse Oximetry 93 O2 Sat by Pulse Oximetry 91 O2 Sat by Pulse Oximetry 93 O2 Sat by Pulse Oximetry 84 O2 Sat by Pulse Oximetry 88 O2 Sat by Pulse Oximetry 87 O2 Sat by Pulse Oximetry 81 General Limitations: No Limitations General Appearance: Alert and In No Apparent Distress Head Head Exam: Normal Inspection Eyes Eye exam: Normal Appearance ENT ENT Exam: Normal Exam Neck Neck Exam: Normal Inspection Chest Chest Inspection: Normal Inspection Respiratory Respiratory Exam: Normal Lung Sounds Bilat Respiratory Exam: Bilateral: Clear to Auscultation Cardiovascular Cardiovascular Exam: Regular Rate and Normal Rhythm Extremities Extremities Exam: Normal Inspection Back Back Exam: Normal Inspection Neurologic Neurological Exam: Alert and Oriented X3 Psychiatric Psychiatric Exam: Normal Affect and Normal Mood Skin Skin Exam: Warm, Dry, Intact and Normal Color <Edin Hemphill - Last Filed: 04/03/25 10:39> Vital Signs Vitals: Vital Signs Temperature 99.3 F Temperature 100.7 F Temperature 99.1 F Pulse Rate [Left Radial] 135 Pulse Rate 108 Pulse Rate 110 Pulse Rate 109 Pulse Rate 109 Pulse Rate 109 Pulse Rate 110 Pulse Rate 109 Pulse Rate 108 Pulse Rate 110 Pulse Rate 106 Pulse Rate 109 Pulse Rate 112 Pulse Rate 120 Pulse Rate 133 Pulse Rate 141 Pulse Rate 135 Pulse Rate 137 Pulse Rate 136 Pulse Rate 132 Pulse Rate 125 Pulse Rate 124 Pulse Rate 134 Pulse Rate 136 Pulse Rate 138 Pulse Rate 137 Pulse Rate 136 Respiratory Rate 17 Respiratory Rate 17 Respiratory Rate 16 Respiratory Rate 16 Respiratory Rate 19 Respiratory Rate 16 Respiratory Rate 17 Respiratory Rate 16 Respiratory Rate 16 Respiratory Rate 16 Respiratory Rate 17 Respiratory Rate 17 Respiratory Rate 16 Respiratory Rate 21 Respiratory Rate 19 Respiratory Rate 16 Respiratory Rate 19 Respiratory Rate 17 Respiratory Rate 18 Respiratory Rate 19 Respiratory Rate 18 Respiratory Rate 19 Respiratory Rate 21 Respiratory Rate 28 Respiratory Rate 28 Respiratory Rate 31 Respiratory Rate 32 Respiratory Rate 20 Blood Pressure [Right Arm] 147/71 Blood Pressure 132/68 Blood Pressure 133/64 Blood Pressure 130/72 Blood Pressure 130/78 Blood Pressure 133/64 Blood Pressure 133/64 Blood Pressure 147/71 Blood Pressure 176/81 Blood Pressure 153/75 Blood Pressure 167/81 O2 Sat by Pulse Oximetry 96 O2 Sat by Pulse Oximetry 97 O2 Sat by Pulse Oximetry 97 O2 Sat by Pulse Oximetry 99 O2 Sat by Pulse Oximetry 97 O2 Sat by Pulse Oximetry 97 O2 Sat by Pulse Oximetry 95 O2 Sat by Pulse Oximetry 97 O2 Sat by Pulse Oximetry 93 O2 Sat by Pulse Oximetry 90 O2 Sat by Pulse Oximetry 90 O2 Sat by Pulse Oximetry 93 O2 Sat by Pulse Oximetry 91 O2 Sat by Pulse Oximetry 93 O2 Sat by Pulse Oximetry 84 O2 Sat by Pulse Oximetry 88 O2 Sat by Pulse Oximetry 87 O2 Sat by Pulse Oximetry 81 COURSE <Rustam Mac - Last Filed: 04/03/25 08:01> Treatment Treatment: pt being signed out to Dr Hemphill. Pt currently being treated for HCAP and sepsis. <Edin Hemphill - Last Filed: 04/03/25 10:39> Treatment Treatment: pt being signed out to Dr Hemphill. Pt currently being treated for HCAP and sepsis. Patient signed out to me, Dr. Alexandre, by Dr. Mac. I discussed results of workup with patient and family and they are agreeable to admission. Patient has had vancomycin, Zosyn and Levaquin. Patient has also had hydration although at a lower rate due to history of congestive heart failure. Vitals are stable at this time. Consultation Called: 10:14 Consultation Comments: Discussed case with Dr. Cruz and he is agreeable to admission Critical Care Notes Total Time (mins): 74 Critical Diagnosis: Sepsis, multifocal pneumonia, hospital-acquired pneumonia Critical Interventions: IV fluids, vancomycin, Zosyn and Levaquin. Patient on oxygen via nasal cannula. Time spent examining patient, ordering and reviewing workup, coordinating care for admission with hospitalist and educating patient and family condition. ROR <Rustam Mac - Last Filed: 04/03/25 08:01> Labs Reviewed 04/03/25 07:42 04/03/25 07:42 Laboratory: WBC 16.1 X10^3/uL (3.6-10.0) H 04/03/25 07:42 RBC 4.22 X10^6/uL (3.5-5.4) 04/03/25 07:42 Hgb 11.7 g/dL (12.0-16.0) L 04/03/25 07:42 Hct 36.5 % (36.0-47.0) 04/03/25 07:42 MCV 86.5 fL (80.0-100.0) 04/03/25 07:42 MCH 27.8 pg (27.0-34.0) 04/03/25 07:42 MCHC 32.2 g/dL (33.0-35.0) L 04/03/25 07:42 RDW 16.4 % (11.6-16.5) 04/03/25 07:42 Plt Count 259 X10^3/uL (150.0-450.0) 04/03/25 07:42 Plt Count Comment Adequate (ADEQUATE) 04/03/25 07:42 MPV 9.1 fL (7.4-11.0) 04/03/25 07:42 Neut % (Auto) 91.0 % (42.0-75.0) H 04/03/25 07:42 Lymph % (Auto) 2.9 % (21.0-51.0) L 04/03/25 07:42 Powell % (Auto) 5.5 % (0.0-13.0) 04/03/25 07:42 Eos % (Auto) 0.4 % (0.9-2.9) L 04/03/25 07:42 Baso % (Auto) 0.2 % (0.2-1.0) 04/03/25 07:42 Neut # (Auto) 14.6 x10^3/uL (2.2-4.8) H 04/03/25 07:42 Lymph # (Auto) 0.5 X10^3/uL (1.3-2.9) L 04/03/25 07:42 Powell # (Auto) 0.9 x10^3/uL (0.3-0.8) H 04/03/25 07:42 Eos # (Auto) 0.1 x10^3/uL (0.0-0.2) 04/03/25 07:42 Baso # (Auto) 0.0 X10^3/uL (0.0-0.1) 04/03/25 07:42 Absolute Nucleated RBC 0.1 /100WBC 04/03/25 07:42 Total Counted 100 04/03/25 07:42 Neutrophils % (Manual) 90 % (39-76) H 04/03/25 07:42 Lymphocytes % (Manual) 6 % (13-43) L 04/03/25 07:42 Monocytes % (Manual) 4 % (4-9) 04/03/25 07:42 Plt Morphology Comment Normal (NORMAL) 04/03/25 07:42 RBC Morphology Normal (NORMAL) 04/03/25 07:42 PT 14.7 SECONDS (11.8-14.3) 04/03/25 07:42 INR Target Range - 04/03/25 07:42 INR 1.14 (0.8-1.3) 04/03/25 07:42 APTT 24.9 SECONDS (22.9-36.5) 04/03/25 07:42 PTT Comment - 04/03/25 07:42 D-Dimer 0.67 ug/ml (0.0-0.57) H 04/03/25 07:42 Sample Site Rr 04/03/25 05:43 ABG pH 7.330 (7.35-7.45) L 04/03/25 05:43 ABG pCO2 35.0 mmHg (35.0-45.0) 04/03/25 05:43 ABG pO2 38.0 mmHg (80.0-100.0) L* 04/03/25 05:43 ABG HCO3 18.5 mmol/L (22-26) L 04/03/25 05:43 ABG O2 Saturation 67.0 % (90-100) L* 04/03/25 05:43 ABG Base Excess -6.7 mmol/L (-2.0-2.0) L 04/03/25 05:43 Reagan Test Pos 04/03/25 05:43 A-a Gradient 118.0 mmHg 04/03/25 05:43 FiO2 28 04/03/25 05:43 Blood Gas Comments Hawk well dm 04/03/25 05:43 Sodium 144 mmol/L (136-145) 04/03/25 07:42 Corrected Sodium TNP 04/03/25 07:42 Potassium 4.4 mmol/L (3.5-5.1) 04/03/25 07:42 Chloride 106 mmol/L (98-107) 04/03/25 07:42 Carbon Dioxide 30.9 mmol/L (21-32) 04/03/25 07:42 BUN 12 mg/dL (7-18) 04/03/25 07:42 Creatinine 0.82 mg/dL (0.55-1.02) 04/03/25 07:42 Est GFR (MDRD) Af Amer > 60 (>60) 04/03/25 07:42 Est GFR (MDRD) Non-Af > 60 (>60) 04/03/25 07:42 Glucose 104 mg/dL (65-99) H 04/03/25 07:42 Lactic Acid 2.3 mmol/L (0.4-2.0) H 04/03/25 07:42 Calcium 8.9 mg/dL (8.5-10.1) 04/03/25 07:42 Corrected Calcium 9.8 mg/dL (8.5-10.1) 04/03/25 07:42 Total Bilirubin 0.30 mg/dL (0.2-1.0) 04/03/25 07:42 AST 17 Units/L (15-37) 04/03/25 07:42 ALT 17 Units/L (12-78) 04/03/25 07:42 Alkaline Phosphatase 146 Units/L (46-116) H 04/03/25 07:42 Troponin I High Sens 16.1 ng/L (4.0-60.0) 04/03/25 07:42 Total Protein 6.5 g/dL (6.4-8.2) 04/03/25 07:42 Albumin 2.9 g/dL (3.4-5.0) L 04/03/25 07:42 Globulin 3.6 g/dL (2.5-4.5) 04/03/25 07:42 Albumin/Globulin Ratio 0.8 Ratio (1.1-2.1) L 04/03/25 07:42 Specimen Type Clean catch urine 04/03/25 06:11 Urine Color Yellow (YELLOW) 04/03/25 06:11 Urine Appearance Clear (CLEAR) 04/03/25 06:11 Urine pH 5.0 (5.0 - 8.0) 04/03/25 06:11 Ur Specific [place] 1.015 (1.000-1.030) 04/03/25 06:11 Urine Protein 1+ (NEGATIVE) 04/03/25 06:11 Urine Glucose (UA) Negative (NEGATIVE) 04/03/25 06:11 Urine Ketones Negative (NEGATIVE) 04/03/25 06:11 Urine Blood Negative (NEGATIVE) 04/03/25 06:11 Urine Nitrite Negative (NEGATIVE) 04/03/25 06:11 Urine Bilirubin Negative (NEGATIVE) 04/03/25 06:11 Urine Urobilinogen Normal (NORMAL) 04/03/25 06:11 Ur Leukocyte Esterase 1+ (NEGATIVE) 04/03/25 06:11 Urine RBC 0-2 /HPF (0-3) 04/03/25 06:11 Urine WBC 0-2 /HPF (0-5) 04/03/25 06:11 Ur Squamous Epith Cells Few /HPF (NEGATIVE) 04/03/25 06:11 Urine Bacteria Trace /HPF (NEGATIVE) 04/03/25 06:11 Ur Culture Indicated? No/not indicated 04/03/25 06:11 SARS-CoV-2 (PCR) Negative (NEGATIVE) 04/03/25 05:57 Influenza Type A (PCR) Negative (NEGATIVE) 04/03/25 05:57 Influenza Type B (PCR) Negative (NEGATIVE) 04/03/25 05:57 RSV (PCR) Negative (NEGATIVE) 04/03/25 05:57 Blood Type O POSITIVE 04/03/25 07:42 Antibody Screen Negative 04/03/25 07:42 <Lucienlori Hemphill - Last Filed: 04/03/25 10:39> Labs Reviewed Laboratory Results Reviewed?: Yes Laboratory: WBC 16.1 X10^3/uL (3.6-10.0) H 04/03/25 07:42 RBC 4.22 X10^6/uL (3.5-5.4) 04/03/25 07:42 Hgb 11.7 g/dL (12.0-16.0) L 04/03/25 07:42 Hct 36.5 % (36.0-47.0) 04/03/25 07:42 MCV 86.5 fL (80.0-100.0) 04/03/25 07:42 MCH 27.8 pg (27.0-34.0) 04/03/25 07:42 MCHC 32.2 g/dL (33.0-35.0) L 04/03/25 07:42 RDW 16.4 % (11.6-16.5) 04/03/25 07:42 Plt Count 259 X10^3/uL (150.0-450.0) 04/03/25 07:42 Plt Count Comment Adequate (ADEQUATE) 04/03/25 07:42 MPV 9.1 fL (7.4-11.0) 04/03/25 07:42 Neut % (Auto) 91.0 % (42.0-75.0) H 04/03/25 07:42 Lymph % (Auto) 2.9 % (21.0-51.0) L 04/03/25 07:42 Powell % (Auto) 5.5 % (0.0-13.0) 04/03/25 07:42 Eos % (Auto) 0.4 % (0.9-2.9) L 04/03/25 07:42 Baso % (Auto) 0.2 % (0.2-1.0) 04/03/25 07:42 Neut # (Auto) 14.6 x10^3/uL (2.2-4.8) H 04/03/25 07:42 Lymph # (Auto) 0.5 X10^3/uL (1.3-2.9) L 04/03/25 07:42 Powell # (Auto) 0.9 x10^3/uL (0.3-0.8) H 04/03/25 07:42 Eos # (Auto) 0.1 x10^3/uL (0.0-0.2) 04/03/25 07:42 Baso # (Auto) 0.0 X10^3/uL (0.0-0.1) 04/03/25 07:42 Absolute Nucleated RBC 0.1 /100WBC 04/03/25 07:42 Total Counted 100 04/03/25 07:42 Neutrophils % (Manual) 90 % (39-76) H 04/03/25 07:42 Lymphocytes % (Manual) 6 % (13-43) L 04/03/25 07:42 Monocytes % (Manual) 4 % (4-9) 04/03/25 07:42 Plt Morphology Comment Normal (NORMAL) 04/03/25 07:42 RBC Morphology Normal (NORMAL) 04/03/25 07:42 PT 14.7 SECONDS (11.8-14.3) 04/03/25 07:42 INR Target Range - 04/03/25 07:42 INR 1.14 (0.8-1.3) 04/03/25 07:42 APTT 24.9 SECONDS (22.9-36.5) 04/03/25 07:42 PTT Comment - 04/03/25 07:42 D-Dimer 0.67 ug/ml (0.0-0.57) H 04/03/25 07:42 Sample Site Rr 04/03/25 05:43 ABG pH 7.330 (7.35-7.45) L 04/03/25 05:43 ABG pCO2 35.0 mmHg (35.0-45.0) 04/03/25 05:43 ABG pO2 38.0 mmHg (80.0-100.0) L* 04/03/25 05:43 ABG HCO3 18.5 mmol/L (22-26) L 04/03/25 05:43 ABG O2 Saturation 67.0 % (90-100) L* 04/03/25 05:43 ABG Base Excess -6.7 mmol/L (-2.0-2.0) L 04/03/25 05:43 Reagan Test Pos 04/03/25 05:43 A-a Gradient 118.0 mmHg 04/03/25 05:43 FiO2 28 04/03/25 05:43 Blood Gas Comments Hawk well dm 04/03/25 05:43 Sodium 144 mmol/L (136-145) 04/03/25 07:42 Corrected Sodium TNP 04/03/25 07:42 Potassium 4.4 mmol/L (3.5-5.1) 04/03/25 07:42 Chloride 106 mmol/L (98-107) 04/03/25 07:42 Carbon Dioxide 30.9 mmol/L (21-32) 04/03/25 07:42 BUN 12 mg/dL (7-18) 04/03/25 07:42 Creatinine 0.82 mg/dL (0.55-1.02) 04/03/25 07:42 Est GFR (MDRD) Af Amer > 60 (>60) 04/03/25 07:42 Est GFR (MDRD) Non-Af > 60 (>60) 04/03/25 07:42 Glucose 104 mg/dL (65-99) H 04/03/25 07:42 Lactic Acid 2.3 mmol/L (0.4-2.0) H 04/03/25 07:42 Calcium 8.9 mg/dL (8.5-10.1) 04/03/25 07:42 Corrected Calcium 9.8 mg/dL (8.5-10.1) 04/03/25 07:42 Total Bilirubin 0.30 mg/dL (0.2-1.0) 04/03/25 07:42 AST 17 Units/L (15-37) 04/03/25 07:42 ALT 17 Units/L (12-78) 04/03/25 07:42 Alkaline Phosphatase 146 Units/L (46-116) H 04/03/25 07:42 Troponin I High Sens 16.1 ng/L (4.0-60.0) 04/03/25 07:42 Total Protein 6.5 g/dL (6.4-8.2) 04/03/25 07:42 Albumin 2.9 g/dL (3.4-5.0) L 04/03/25 07:42 Globulin 3.6 g/dL (2.5-4.5) 04/03/25 07:42 Albumin/Globulin Ratio 0.8 Ratio (1.1-2.1) L 04/03/25 07:42 Specimen Type Clean catch urine 04/03/25 06:11 Urine Color Yellow (YELLOW) 04/03/25 06:11 Urine Appearance Clear (CLEAR) 04/03/25 06:11 Urine pH 5.0 (5.0 - 8.0) 04/03/25 06:11 Ur Specific [place] 1.015 (1.000-1.030) 04/03/25 06:11 Urine Protein 1+ (NEGATIVE) 04/03/25 06:11 Urine Glucose (UA) Negative (NEGATIVE) 04/03/25 06:11 Urine Ketones Negative (NEGATIVE) 04/03/25 06:11 Urine Blood Negative (NEGATIVE) 04/03/25 06:11 Urine Nitrite Negative (NEGATIVE) 04/03/25 06:11 Urine Bilirubin Negative (NEGATIVE) 04/03/25 06:11 Urine Urobilinogen Normal (NORMAL) 04/03/25 06:11 Ur Leukocyte Esterase 1+ (NEGATIVE) 04/03/25 06:11 Urine RBC 0-2 /HPF (0-3) 04/03/25 06:11 Urine WBC 0-2 /HPF (0-5) 04/03/25 06:11 Ur Squamous Epith Cells Few /HPF (NEGATIVE) 04/03/25 06:11 Urine Bacteria Trace /HPF (NEGATIVE) 04/03/25 06:11 Ur Culture Indicated? No/not indicated 04/03/25 06:11 SARS-CoV-2 (PCR) Negative (NEGATIVE) 04/03/25 05:57 Influenza Type A (PCR) Negative (NEGATIVE) 04/03/25 05:57 Influenza Type B (PCR) Negative (NEGATIVE) 04/03/25 05:57 RSV (PCR) Negative (NEGATIVE) 04/03/25 05:57 Blood Type O POSITIVE 04/03/25 07:42 Antibody Screen Negative 04/03/25 07:42 Other Results Comments: Name: DELANEY MACIAS : 1950 Sex: F Location: ER Order Number(s): [id number] Procedure(s):CTA, CHEST Ordering Physician: Rustam Mac Primary Care: NFD,None Service Date: 04/03/25 Service Time: 558 EXAM: CT PULMONARY ANGIOGRAM CHEST WITH CONTRAST (PE PROTOCOL) HISTORY: CHF, SOB, COUGH; COMPARISON: Chest x-ray from same date and 02/25/2025; CT dated 09/29/2023. TECHNIQUE: Axial CT images were obtained through the chest after the intravenous administration of IV contrast. Coronal reformatted images were included. Maximum intensity projection (MIP) images were performed per pulmonary angiogram protocol. Informed written consent was obtained prior to contrast administration. All CT scans at this facility use dose modulation, iterative reconstruction, and/or weight based dosing when appropriate to reduce radiation dose to as low as reasonably achievable. FINDINGS: No evidence of pulmonary embolism. Normal caliber main pulmonary artery. [id number] aortic and coronary artery calcifications. No pericardial effusion. No thoracic lymphadenopathy. Small hiatal hernia. Moderate emphysema. Dense consolidation throughout the left lower lobe with air bronchograms. Focal right apical subpleural infiltrates and consolidation. Trachea is midline and central airways are patent without evidence of obstructing airway lesion. No pleural effusion or pneumothorax. Osteopenia. Multilevel degenerative disc disease. Anterior cervical spine fusion hardware in place. No acute findings in the visualized upper abdomen. IMPRESSION: 1. Findings compatible with multifocal pneumonia. Dense consolidation throughout the left lower lobe. Focal right apical consolidation and infiltrates. Moderate underlying emphysema. Recommend radiographic follow-up to resolution. 2. No evidence of pulmonary embolism. 3. [id number] aortic and coronary artery atherosclerosis. THIS IS AN ELECTRONICALLY VERIFIED FINAL REPORT 04/03/2025 9:47 AM - Electronically signed by Christiano Parr MD XRAY X-ray Results: Name: DELANEY MACIAS [facility]#: [id number] : 1950 Sex: F Location: ER Order Number(s): [id number] Procedure(s):CHEST, 1 VIEW X-RAY Ordering Physician: Rustam Mac Primary Care: Abilio VASQUEZ Service Date: 04/03/25 Service Time: 606 EXAM: CHEST, 1 VIEW HISTORY: pt brought in via ems with complaints of sob, and severe bilateral rib pain, pt states started when she got up this morning to use the bathroom and it worsened.; ANEMIA, ASTHMA, COPD, CVA, GERD, HTN, RENAL DISEASE, LUNG CA, AFIB, PULMONARY EMBOLUS SX: ABD, APPY, HYST COMPARISON: No relevant prior studies were available for comparison at the time of interpretation. TECHNIQUE: CHEST, 1 VIEW FINDINGS: Chest: Lines and tubes: Cardiac leads overlie the chest. Mediastinum: Cardiac and mediastinal shadow is within normal limits for size and contour. Pulmonary vessels: No pulmonary vascular congestion. Lung reed: Left lower lung field consolidation Pleura: No effusion. No pneumothorax. Bones and soft tissues: No acute osseous or soft tissue abnormality. IMPRESSION: 1. Left pneumonia THIS IS AN ELECTRONICALLY VERIFIED FINAL REPORT 04/03/2025 8:20 AM - Electronically signed by Fredo Rubio MD EKG Rate: 135 [place]: LAD Rhythm: ST ST: Nonsp Opioid <Rustam Mac - Last Filed: 04/03/25 08:01> Opioid Risk Tool Age (Marquez box if 16-45): No History of Preadolescent Sexual Abuse: No Total: 0 Total Score Risk Category: Low Risk Copyright: [facility] predicting aberrant behaviors <Edin Hemphill - Last Filed: 04/03/25 10:39> Opioid Risk Tool Total: 0 Total Score Risk Category: Low Risk Discharge Plan Diagnosis Discharge Problem: Sepsis, HCAP (healthcare-associated pneumonia), Hypoxia, Multifocal pneumonia Discharge Plan Patient Disposition: 09 ADMITTED INPATIENT Condition: Stable Prescriptions: No Action levothyroxine [Synthroid] 75 mcg tablet 75 mcg PO QDAY Qty: 90 3RF desloratadine 5 mg tablet 5 mg PO QPM Qty: 30 2RF pantoprazole 40 mg tablet,delayed release (DR/EC) 40 mg PO Q12H Qty: 180 3RF gabapentin 400 mg capsule 800 mg PO QHS omeprazole 20 mg capsule,delayed release(DR/EC) 20 mg PO QDAY Eliquis 5 mg tablet 5 mg PO BID carvedilol 3.125 mg tablet 3.125 mg PO BID montelukast 10 mg tablet 10 mg PO QDAY levetiracetam 500 mg tablet 500 mg PO BID famotidine 40 mg tablet 40 mg PO BID fluoxetine 10 mg capsule 10 mg PO QDAY losartan 100 mg tablet 100 mg PO QDAY ezetimibe 10 mg tablet 10 mg PO QDAY baclofen 10 mg tablet 10 mg PO BID ropinirole 2 mg tablet 2 mg PO QPM Health Concerns: Post Hospitalization: new medications and changes needed to prevent readmission or further decline. Pt educated and given instructions on all concerns. Plan of Treatment: Continue with present treatment and follow up plan. Pt is to keep follow up appointment as instructed and take medications as ordered. Orders to Discharge Patient Discharge Orders: Transfer (Routine); Ordered 04/03/25 Ordered By: Edin Hemphill Follow ups/Referrals Follow ups/Referrals: NFD,None [Primary Care Provider] - 3 days Instructions Stand Alone Forms: Find Help Web Site, Post Hospital Follow Up Care Print Language: TURKMEN
[2025-04-03] MEDS: ZOSYN VIAL 3.375 GRAMS 3.375 G in NS 100 ML IV 100 ML IV SCH (07:54)
[2025-04-03 08:01] LABS: MEAN PLATELET VOLUME 9.1 fL (7.4-11.0); RED CELL DISTRIBUTION WIDTH 16.4 % (11.6-16.5)
[2025-04-03 08:13] LABS: COR CA(FOR HYPOALB) 9.8 mg/dL (8.5-10.1); CREATININE 0.82 mg/dL (0.55-1.02); eGFR NON BLACK RACES > 60 (>60)
--- NOTE | 2025-04-03 08:23 | RAD ---
EXAM: CHEST, 1 VIEW HISTORY: pt brought in via ems with complaints of sob, and severe bilateral rib pain, pt states started when she got up this morning to use the bathroom and it worsened.; ANEMIA, ASTHMA, COPD, CVA, GERD, HTN, RENAL DISEASE, LUNG CA, AFIB, PULMONARY EMBOLUS SX: ABD, APPY, HYST COMPARISON: No relevant prior studies were available for comparison at the time of interpretation. TECHNIQUE: CHEST, 1 VIEW FINDINGS: Chest: Lines and tubes: Cardiac leads overlie the chest. Mediastinum: Cardiac and mediastinal shadow is within normal limits for size and contour. Pulmonary vessels: No pulmonary vascular congestion. Lung reed: Left lower lung field consolidation Pleura: No effusion. No pneumothorax. Bones and soft tissues: No acute osseous or soft tissue abnormality. IMPRESSION: 1. Left pneumonia THIS IS AN ELECTRONICALLY VERIFIED FINAL REPORT 04/03/2025 8:20 AM - Electronically signed by Fredo Rubio MD
[2025-04-03 08:27] LABS: PLATELET MORPHOLOGY COMMENT NORMAL (NORMAL)
[2025-04-03] MEDS: LEVAQUIN PREMIX IV 750 MG 750 MG/150 ML BAG IV SCH (08:39)
[2025-04-03 08:54] LABS: INR 1.14 (0.8-1.3)
[2025-04-03] MEDS: NS 250 ML IV 25 ML IV PRN (08:57)
--- NOTE | 2025-04-03 09:50 | CT ---
EXAM: CT PULMONARY ANGIOGRAM CHEST WITH CONTRAST (PE PROTOCOL) HISTORY: CHF, SOB, COUGH; COMPARISON: Chest x-ray from same date and 02/25/2025; CT dated 09/29/2023. TECHNIQUE: Axial CT images were obtained through the chest after the intravenous administration of IV contrast. Coronal reformatted images were included. Maximum intensity projection (MIP) images were performed per pulmonary angiogram protocol. Informed written consent was obtained prior to contrast administration. All CT scans at this facility use dose modulation, iterative reconstruction, and/or weight based dosing when appropriate to reduce radiation dose to as low as reasonably achievable. FINDINGS: No evidence of pulmonary embolism. Normal caliber main pulmonary artery. [id number] aortic and coronary artery calcifications. No pericardial effusion. No thoracic lymphadenopathy. Small hiatal hernia. Moderate emphysema. Dense consolidation throughout the left lower lobe with air bronchograms. Focal right apical subpleural infiltrates and consolidation. Trachea is midline and central airways are patent without evidence of obstructing airway lesion. No pleural effusion or pneumothorax. Osteopenia. Multilevel degenerative disc disease. Anterior cervical spine fusion hardware in place. No acute findings in the visualized upper abdomen. IMPRESSION: 1. Findings compatible with multifocal pneumonia. Dense consolidation throughout the left lower lobe. Focal right apical consolidation and infiltrates. Moderate underlying emphysema. Recommend radiographic follow-up to resolution. 2. No evidence of pulmonary embolism. 3. [id number] aortic and coronary artery atherosclerosis. THIS IS AN ELECTRONICALLY VERIFIED FINAL REPORT 04/03/2025 9:47 AM - Electronically signed by Christiano Parr MD
[2025-04-03] MEDS ORDERED: NORCO 5/325 MG TAB PO PRN (12:09)
[2025-04-03] MEDS ORDERED: CONSULT PHARMACY - POTASSIUM & MAGNESIUM XX SCH (12:09)
[2025-04-03] MEDS ORDERED: TYLENOL 325 MG TAB PO PRN (12:09)
[2025-04-03] MEDS ORDERED: ZOSYN VIAL 3.375 GRAMS 3.375 G in NS 100 ML IV 100 ML IV SCH (12:09)
[2025-04-03] MEDS ORDERED: TUSSIONEX PENNKINETIC SUSP PO PRN (12:09)
[2025-04-03] MEDS ORDERED: NS 250 ML IV 25 ML IV PRN (12:09)
[2025-04-03] MEDS ORDERED: MORPHINE SULFATE INJ 2 MG INJ IVP PRN (12:09)
[2025-04-03] MEDS: DUONEB 0.5 MG/3 MG (3 mL) NEB SCH (13:49)
[2025-04-03] MEDS: NS 1,000 ML IV 1,000 ML IV SCH (14:30)
[2025-04-03 19:41] VITALS: BMI 25.9
[2025-04-03] MEDS: COREG TAB 3.125 MG PO SCH (21:39)
[2025-04-03] MEDS: ELIQUIS PO SCH (21:39)
[2025-04-03] MEDS: COLACE CAP 100 MG PO SCH (21:40)
[2025-04-03] MEDS: NEURONTIN CAP 400 MG PO SCH (21:40)
[2025-04-03] MEDS: LIORESAL PO SCH (21:41)
[2025-04-03] MEDS: RESTORIL CAP 15 MG PO PRN (22:31)
[2025-04-04] MEDS: PULMICORT NEB TX 0.5 MG NEB SCH (02:34)
[2025-04-04 05:57] LABS: MEAN PLATELET VOLUME 9.0 fL (7.4-11.0); RED CELL DISTRIBUTION WIDTH 15.8 % (11.6-16.5)
[2025-04-04 06:18] LABS: COR CA(FOR HYPOALB) 9.7 mg/dL (8.5-10.1); CREATININE 0.69 mg/dL (0.55-1.02); eGFR NON BLACK RACES > 60 (>60)
--- NOTE | 2025-04-04 07:31 | DR.H&P ---
H&P History & Physical for Day of: H&P Date: 04/03/25 Chief Complaint Chief Complaint: SOB, RIB PAIN History of Present Illness History of Present Illness: Pt in via ems with complaints of sob, and severe bilateral rib pain, pt states started when she got up this morning to use the bathroom and it worsened. Pt has hx of lung cancer, last treatment 1y ago, recently hospitalized for vaginal abscess, d/c 2 wk ago. today, c/o increasing prod cough, dyspnea, fever and chills over the past 12-24h. Denies chest pain. Denies other complaints. Past Medical History Past Medical History: Anemia, Arthritis, Asthma, COPD, CVA, Dyslipidemia, GERD, Hypertension, Hypothyroidism, Renal Disease, Seizures and Cancer Additional Medical History: PE Past Surgical History Surgical History: Abdominal Surgery, Appendectomy, Hysterectomy and Other Family History Family Medical History: Diabetes Mellitus, Cancer, SD, Heart Failure and Hypertension Social History Does patient currently use any type of tobacco product: No Type of Tobacco Use: Cigarettes How many years tobacco product used: 50 Does any household member use tobacco: No Alcohol Use: None Drug Use: None Medications Home Medications: Home Medications Medication Instructions Recorded Confirmed Type apixaban 5 mg tablet (Eliquis) 5 mg PO BID 08/20/23 History gabapentin 400 mg capsule 800 mg PO QHS 08/20/2304/03 History omeprazole 20 mg capsule,delayed 20 mg PO QDAY 4 04/03/25 History release baclofen 10 mg tablet 10 mg PO BID 02/10/25 History carvedilol 3.125 mg tablet 3.125 mg PO BID 02/10/25 History ezetimibe 10 mg tablet 10 mg PO QDAY 02/10/2504/03 History famotidine 40 mg tablet 40 mg PO BID 02/10/25 History fluoxetine 10 mg capsule 10 mg PO QDAY 02/10/2504/03 History levetiracetam 500 mg tablet 500 mg PO BID 02/10/2503/18 History losartan 100 mg tablet 100 mg PO QDAY 02/10/2503/24 History montelukast 10 mg tablet 10 mg PO QDAY 02/10/2504/03 History ropinirole 2 mg tablet 2 mg PO QPM 02/10/25 5 History Allergies Allergies Allergy/AdvReac Type Severity Reaction Status Date / Time sulfacetamide Allergy Unknown Verified 04/03/25 10:24 Sulfa (Sulfonamide Allergy Verified 04/03/25 10:24 Antibiotics) (SULFA) Labs 04/04/25 05:28 04/04/25 05:28 Labs: Laboratory WBC 16.7 X10^3/uL (3.6-10.0) H 04/04/25 05:28 RBC 3.10 X10^6/uL (3.5-5.4) L 04/04/25 05:28 Hgb 8.7 g/dL (12.0-16.0) L D 04/04/25 05:28 Hct 26.4 % (36.0-47.0) L 04/04/25 05:28 MCV 85.2 fL (80.0-100.0) 04/04/25 05:28 MCH 28.1 pg (27.0-34.0) 04/04/25 05:28 MCHC 33.0 g/dL (33.0-35.0) 04/04/25 05:28 RDW 15.8 % (11.6-16.5) 04/04/25 05:28 Plt Count 180 X10^3/uL (150.0-450.0) 04/04/25 05:28 Plt Count Comment Adequate (ADEQUATE) 04/03/25 07:42 MPV 9.0 fL (7.4-11.0) 04/04/25 05:28 Neut % (Auto) 86.0 % (42.0-75.0) H 04/04/25 05:28 Lymph % (Auto) 7.1 % (21.0-51.0) L 04/04/25 05:28 [place] % (Auto) 6.2 % (0.0-13.0) 04/04/25 05:28 Eos % (Auto) 0.3 % (0.9-2.9) L 04/04/25 05:28 Baso % (Auto) 0.4 % (0.2-1.0) 04/04/25 05:28 Neut # (Auto) 14.3 x10^3/uL (2.2-4.8) H 04/04/25 05:28 Lymph # (Auto) 1.2 X10^3/uL (1.3-2.9) L 04/04/25 05:28 [place] # (Auto) 1.0 x10^3/uL (0.3-0.8) H 04/04/25 05:28 Eos # (Auto) 0.0 x10^3/uL (0.0-0.2) 04/04/25 05:28 Baso # (Auto) 0.1 X10^3/uL (0.0-0.1) 04/04/25 05:28 Absolute Nucleated RBC 0.1 /100WBC 04/04/25 05:28 Total Counted 100 04/03/25 07:42 Neutrophils % (Manual) 90 % (39-76) H 04/03/25 07:42 Lymphocytes % (Manual) 6 % (13-43) L 04/03/25 07:42 Monocytes % (Manual) 4 % (4-9) 04/03/25 07:42 Plt Morphology Comment Normal (NORMAL) 04/03/25 07:42 RBC Morphology Normal (NORMAL) 04/03/25 07:42 PT 14.7 SECONDS (11.8-14.3) 04/03/25 07:42 INR Target Range - 04/03/25 07:42 INR 1.14 (0.8-1.3) 04/03/25 07:42 APTT 24.9 SECONDS (22.9-36.5) 04/03/25 07:42 PTT Comment - 04/03/25 07:42 D-Dimer 0.67 ug/ml (0.0-0.57) H 04/03/25 07:42 Sample Site Rr 04/03/25 05:43 ABG pH 7.330 (7.35-7.45) L 04/03/25 05:43 ABG pCO2 35.0 mmHg (35.0-45.0) 04/03/25 05:43 ABG pO2 38.0 mmHg (80.0-100.0) L* 04/03/25 05:43 ABG HCO3 18.5 mmol/L (22-26) L 04/03/25 05:43 ABG O2 Saturation 67.0 % (90-100) L* 04/03/25 05:43 ABG Base Excess -6.7 mmol/L (-2.0-2.0) L 04/03/25 05:43 Reagan Test Pos 04/03/25 05:43 A-a Gradient 118.0 mmHg 04/03/25 05:43 FiO2 28 04/03/25 05:43 Blood Gas Comments [place] well dm 04/03/25 05:43 Sodium 143 mmol/L (136-145) 04/04/25 05:28 Corrected Sodium TNP 04/04/25 05:28 Potassium 4.0 mmol/L (3.5-5.1) 04/04/25 05:28 Chloride 107 mmol/L (98-107) 04/04/25 05:28 Carbon Dioxide 26.3 mmol/L (21-32) 04/04/25 05:28 BUN 11 mg/dL (7-18) 04/04/25 05:28 Creatinine 0.69 mg/dL (0.55-1.02) 04/04/25 05:28 Est GFR (MDRD) Af Amer > 60 (>60) 04/04/25 05:28 Est GFR (MDRD) Non-Af > 60 (>60) 04/04/25 05:28 Glucose 82 mg/dL (65-99) 04/04/25 05:28 Lactic Acid 2.0 mmol/L (0.4-2.0) 04/03/25 10:00 Calcium 8.2 mg/dL (8.5-10.1) L 04/04/25 05:28 Corrected Calcium 9.7 mg/dL (8.5-10.1) 04/04/25 05:28 Total Bilirubin 0.40 mg/dL (0.2-1.0) 04/04/25 05:28 AST 19 Units/L (15-37) 04/04/25 05:28 ALT 12 Units/L (12-78) 04/04/25 05:28 Alkaline Phosphatase 97 Units/L (46-116) 04/04/25 05:28 Troponin I High Sens 15.8 ng/L (4.0-60.0) 04/03/25 18:31 Total Protein 5.2 g/dL (6.4-8.2) L 04/04/25 05:28 Albumin 2.1 g/dL (3.4-5.0) L 04/04/25 05:28 Globulin 3.1 g/dL (2.5-4.5) 04/04/25 05:28 Albumin/Globulin Ratio 0.7 Ratio (1.1-2.1) L 04/04/25 05:28 Specimen Type Clean catch urine 04/03/25 06:11 Urine Color Yellow (YELLOW) 04/03/25 06:11 Urine Appearance Clear (CLEAR) 04/03/25 06:11 Urine pH 5.0 (5.0 - 8.0) 04/03/25 06:11 Ur Specific [place] 1.015 (1.000-1.030) 04/03/25 06:11 Urine Protein 1+ (NEGATIVE) 04/03/25 06:11 Urine Glucose (UA) Negative (NEGATIVE) 04/03/25 06:11 Urine Ketones Negative (NEGATIVE) 04/03/25 06:11 Urine Blood Negative (NEGATIVE) 04/03/25 06:11 Urine Nitrite Negative (NEGATIVE) 04/03/25 06:11 Urine Bilirubin Negative (NEGATIVE) 04/03/25 06:11 Urine Urobilinogen Normal (NORMAL) 04/03/25 06:11 Ur Leukocyte Esterase 1+ (NEGATIVE) 04/03/25 06:11 Urine RBC 0-2 /HPF (0-3) 04/03/25 06:11 Urine WBC 0-2 /HPF (0-5) 04/03/25 06:11 Ur Squamous Epith Cells Few /HPF (NEGATIVE) 04/03/25 06:11 Urine Bacteria Trace /HPF (NEGATIVE) 04/03/25 06:11 Ur Culture Indicated? No/not indicated 04/03/25 06:11 SARS-CoV-2 (PCR) Negative (NEGATIVE) 04/03/25 05:57 Influenza Type A (PCR) Negative (NEGATIVE) 04/03/25 05:57 Influenza Type B (PCR) Negative (NEGATIVE) 04/03/25 05:57 RSV (PCR) Negative (NEGATIVE) 04/03/25 05:57 Blood Type O POSITIVE 04/03/25 07:42 Antibody Screen Negative 04/03/25 07:42 Review of Systems Constitutional: Chills, Weakness and Malaise Eyes: No Symptoms Reported ENT: No Symptoms Reported Respiratory: Shortness of Breath, SOB with Excertion and Wheezing Cardiovascular: Chest Pain (bilateral rib pain) Gastrointestinal: No Symptoms Reported Genitourinary: No Symptoms Reported Musculoskeletal: Back Pain Skin: No Symptoms Reported Neurological: Weakness Physical Exam Vital Signs: Vital Signs Temperature 98.7 F Temperature 97.6 F Pulse Rate [Left Radial] 100 Pulse Rate [Left Radial] 105 Respiratory Rate 20 Respiratory Rate 18 Blood Pressure [Right Arm] 90/53 Blood Pressure [Right Arm] 106/56 O2 Sat by Pulse Oximetry 93 O2 Sat by Pulse Oximetry 93 Oriented: Normal Eyes: Normal Ear: Normal Nose: Normal Throat: Dry Respiratory: Wheezes Throughout, RLL Diminished and LLL Diminished Cardiovascular: Normal Auscultation: Bowel Sounds: Normal Palpation: Normal Tenderness: Normal Skin: Decreased Turgur Musculoskeletal: Back:Thoracic and Motor Deficit Psychiatric: Anxiety Mood Description: Anxious Affect: Normal Speech Pattern: Clear and Appropriate Assessment/Plan (1) Multifocal pneumonia: Status: Acute Plan: admit, iv atbx, sputum and blood culture on admission iv hydration, resp therapy and supplemental o2 cardiac monitoring, review and resume home medications (2) Hypoxia: Status: Acute
[2025-04-04] MEDS: ZOFRAN INJ 4 MG VIAL ONE (08:41)
[2025-04-04] MEDS: OMNIPAQUE 350 mg/mL 100 mL BTL 100 ML ONE (08:41)
[2025-04-04] MEDS: NS 250 ML IV 250 ML IV ONE (08:42)
[2025-04-04] MEDS: DUONEB 0.5 MG/3 MG (3 mL) NEB ONE (08:42)
[2025-04-04] MEDS ORDERED: LEVAQUIN PREMIX IV 750 MG 750 MG/150 ML BAG IV SCH (09:00)
[2025-04-04] MEDS: VISBIOME PROBIOTIC CAP 112.5 B or equivalent PO SCH (09:45)
[2025-04-04] MEDS: COZAAR PO SCH (09:45)
--- NOTE | 2025-04-04 13:33 | RAD ---
EXAM: CHEST, PA/LAT ADULT HISTORY: COUGH, SOB, PNEUMONIA; ANEMIA, ASTHMA, COPD, CVA, GERD, HTN, RENAL DISEASE, LUNG CA, AFIB, PULMONARY EMBOLUS SX: ABD, APPY, HYST COMPARISON: 04/03/2025 TECHNIQUE: PA and lateral FINDINGS: Stable prominent cardiac silhouette. Patchy lung infiltrates are similar to comparison CT, greatest in the left lower lobe. No large pleural effusion or visible pneumothorax. IMPRESSION: Stable pulmonary infiltrates and consolidation. THIS IS AN ELECTRONICALLY VERIFIED FINAL REPORT 04/04/2025 1:30 PM - Electronically signed by Christiano Parr MD
[2025-04-04 13:43] LABS: ABG PH 7.330 (7.35-7.45)
[2025-04-04 13:48] LABS: ABG OXYGEN SATURATION 67.0 % (90-100); ABG PO2 38.0 mmHg (80.0-100.0)
[2025-04-04 14:08] LABS: ABG ALLEN TEST POS; ABG BASE EXCESS 1.7 mmol/L (-2.0-2.0); ABG HCO3 26.6 mmol/L (22-26); ABG OXYGEN SATURATION 93.0 % (90-100); ABG PCO2 42.0 mmHg (35.0-45.0); ABG PH 7.410 (7.35-7.45); ABG PO2 67.0 mmHg (80.0-100.0)
[2025-04-04] MEDS: ULTRAM PO PRN (20:36)
[2025-04-04 20:55] LABS: CREATININE 0.83 mg/dL (0.55-1.02)
[2025-04-04] MEDS: PHARMACY COMMENT IV NR (22:49)
[2025-04-05 05:09] LABS: MEAN PLATELET VOLUME 8.8 fL (7.4-11.0); RED CELL DISTRIBUTION WIDTH 15.9 % (11.6-16.5)
[2025-04-05 05:19] LABS: COR CA(FOR HYPOALB) 10.0 mg/dL (8.5-10.1); CREATININE 0.70 mg/dL (0.55-1.02); eGFR NON BLACK RACES > 60 (>60)
[2025-04-05] MEDS ORDERED: CONSULT PHARMACY - POTASSIUM & MAGNESIUM XX SCH (07:00)
[2025-04-05] MEDS: K-DUR TAB 20 MEQ PO SCH (08:26)
[2025-04-05] MEDS: MAG-OX TAB PO SCH (08:27)
[2025-04-05] MEDS: LINZESS PO SCH (08:27)
[2025-04-05] MEDS: MILK OF MAGNESIA PO PRN (08:39)
[2025-04-05] MEDS ORDERED: COZAAR PO SCH (09:00)
--- NOTE | 2025-04-05 10:29 | RAD ---
EXAM: KUB HISTORY: Constipation; COMPARISON: None FINDINGS: Evaluation of the abdomen demonstrates a nonobstructive bowel gas pattern. Moderate colonic fecal burden. No evidence of pneumoperitoneum. No pathologic soft tissue calcification. No acute osseous abnormality. IMPRESSION: Moderate colonic stool. THIS IS AN ELECTRONICALLY VERIFIED FINAL REPORT 04/05/2025 10:26 AM - Electronically signed by Arden Katz MD
[2025-04-05] MEDS: DULCOLAX SUPPOSITORY 10 MG RECTAL ONE (10:45)
--- NOTE | 2025-04-05 16:09 | NOTE.SOAP ---
Soap Note Note for Day of Date of Exam: 04/05/25 Subjective Data Subjective Data: Patient seen for daily rounds. Was feeling better this morning but now more easily tired with activity. She is wearing her O2 continuously and breathing easier. White count is improving. Objective Data Objective Data: Chronically ill-appearing, elderly female in no acute distress. Hearing intact grossly, head NCAT. Heart regular rate and rhythm. Lungs diminished with rhonchi. Belly is soft and nontender with bowel sounds present. Assessment Assessment: Severe sepsis due to multifocal HCAP (tachycardia, leukocytosis, fever, PNA, acute hypoxic resp failure) Acute hypoxic respiratory failure Lung CA Plan Plan: O2, abx, IVFs, home meds, close monitoring.
[2025-04-05] MEDS: MILK OF MAGNESIA PO SCH (22:29)
[2025-04-06 05:01] LABS: MEAN PLATELET VOLUME 8.9 fL (7.4-11.0); RED CELL DISTRIBUTION WIDTH 15.9 % (11.6-16.5)
[2025-04-06 05:13] LABS: COR CA(FOR HYPOALB) 9.9 mg/dL (8.5-10.1); CREATININE 0.66 mg/dL (0.55-1.02); eGFR NON BLACK RACES > 60 (>60)
[2025-04-06] MEDS ORDERED: CONSULT PHARMACY - POTASSIUM & MAGNESIUM XX SCH (07:00)
[2025-04-06] MEDS: K-DUR TAB 20 MEQ PO SCH (08:46)
[2025-04-06] MEDS: MAG-OX TAB PO SCH (08:46)
--- NOTE | 2025-04-06 15:24 | NOTE.SOAP ---
Soap Note Note for Day of Date of Exam: 04/06/25 Subjective Data Subjective Data: Seen for daily rounds. No events overnight. She does report she is feeling better but still easily winded. Objective Data Objective Data: Elderly female in no acute distress. Appears chronically ill. Heart regular rate and rhythm. Lungs diminished with faint wheezing bilaterally. Belly is soft with bowel sounds present. Mood and affect are appropriate. No swelling of her extremities. Assessment Assessment: Severe sepsis due to multifocal HCAP (tachycardia, leukocytosis, fever, PNA, acute hypoxic resp failure) Acute hypoxic respiratory failure History of Lung CA COVID19 lung damage Plan Plan: Doing better, continue current.
[2025-04-06 20:07] LABS: CREATININE 0.87 mg/dL (0.55-1.02)
[2025-04-07 05:58] LABS: MEAN PLATELET VOLUME 8.9 fL (7.4-11.0); RED CELL DISTRIBUTION WIDTH 15.7 % (11.6-16.5)
[2025-04-07 06:20] LABS: COR CA(FOR HYPOALB) 10.4 mg/dL (8.5-10.1); CREATININE 0.68 mg/dL (0.55-1.02); eGFR NON BLACK RACES > 60 (>60)
[2025-04-07 06:32] LABS: PLATELET MORPHOLOGY COMMENT NORMAL (NORMAL)
--- NOTE | 2025-04-07 09:05 | RAD ---
EXAM: CHEST, 1 VIEW HISTORY: PNEUMONIA; COMPARISON: No relevant prior studies were available for comparison at the time of interpretation. TECHNIQUE: CHEST, 1 VIEW FINDINGS: Chest: Lines and tubes: None Mediastinum: Cardiac and mediastinal shadow is within normal limits for size and contour. Pulmonary vessels: No pulmonary vascular congestion. Lung reed: No suspicious airspace opacity. Pleura: No effusion. No pneumothorax. Bones and soft tissues: No acute osseous or soft tissue abnormality. IMPRESSION: 1. No acute cardiopulmonary abnormality THIS IS AN ELECTRONICALLY VERIFIED FINAL REPORT 04/07/2025 9:02 AM - Electronically signed by Fredo Rubio MD
[2025-04-07] MEDS: SINGULAIR TAB 10 MG PO SCH (10:32)
[2025-04-07 23:37] VITALS: O2SAT 98
[2025-04-08 06:08] LABS: MEAN PLATELET VOLUME 8.9 fL (7.4-11.0); RED CELL DISTRIBUTION WIDTH 15.7 % (11.6-16.5)
[2025-04-08 06:14] LABS: COR CA(FOR HYPOALB) 9.9 mg/dL (8.5-10.1); CREATININE 0.70 mg/dL (0.55-1.02); eGFR NON BLACK RACES > 60 (>60)
[2025-04-08 06:41] LABS: BAND NEUTROPHILS % 1 % (0-10); PLATELET MORPHOLOGY COMMENT NORMAL (NORMAL)
[2025-04-08 11:54] VITALS: BP 141/75; PULSE 96; RESP 20; TEMP 98.1
== END 2025-04-08 11:40 | disposition home or self-care (01) | DRG 871 ==
LOC: ER 05:40 → MED/SURG 10:38
PROVIDERS: ADMIT Internal Medicine; ATTEND Internal Medicine
DX: K59.09 Other constipation; R79.89 Other specified abnormal findings of blood chemistry; I48.91 Unspecified atrial fibrillation; I95.89 Other hypotension; R05.8 Other specified cough; R06.02 Shortness of breath; Z86.69 Personal history of other diseases of the nervous system and sense organs; R07.89 Other chest pain; M19.90 Unspecified osteoarthritis, unspecified site; R74.8 Abnormal levels of other serum enzymes; J44.9 Chronic obstructive pulmonary disease, unspecified; E03.8 Other specified hypothyroidism; R09.02 Hypoxemia; D64.89 Other specified anemias; Z85.118 Personal history of other malignant neoplasm of bronchus and lung; Z03.818 Encounter for observation for suspected exposure to other biological agents ruled out; E78.5 Hyperlipidemia, unspecified; I10 Essential (primary) hypertension; J18.8 Other pneumonia, unspecified organism; Z86.73 Personal history of transient ischemic attack (TIA), and cerebral infarction without residual deficits; A41.89 Other specified sepsis; D72.828 Other elevated white blood cell count; I25.10 Atherosclerotic heart disease of native coronary artery without angina pectoris; R79.1 Abnormal coagulation profile; R00.1 Bradycardia, unspecified; K21.9 Gastro-esophageal reflux disease without esophagitis